=== PATIENT | male | born 1965 | race Caucasian/White ===

== ENCOUNTER 2018-06-05 11:21 | Inpatient (IN) | payer OTHER ==
[~2018-06-05] VITALS: Ht 190.5 cm; Wt 179.8 kg
--- OUTSIDE RECORDS SUMMARY | 2018-06-05 14:16 | XMS REPORT ---
Patient Summary 2.1 Created on: JACKIE CRUZ External Reference #: [id number] : 1965 Sex: Male Author Author YARIEL DELGADO Organization Unknown Address [address] [facility] [address] [place], [place] [id number] Care Team Providers Care Water Pollution Control Inspector Name Role Phone SHARON OLIVARESL Watchlist Xwatchlist BOO WOODRUFF DO HOSPITALIST Attending [facility] [employer] SUZI TAYLOR APRN [facility] Functional Status No Data Found Immunization Immunization Date Status Additional Notes Code Code System MMR 02/09/2001 Completed 03 CVX influenza, unspecified formulation 03/10/2018 Completed 88 CVX influenza, injectable, quadrivalent, preservative free 04/18 Completed 150 CVX Mental Status No Data Found Results BEDSIDE GLUCOSE - Collect Date/Time: 05/18/2018 11:38 [employer] ID: [id number] - [id number] [address] [facility] [address], [place], [place], [id number] [facility] [employer] ID: [id number] [address] [facility] [address], [place], [address] LOINC: 17575-2 Test Value Unit Reference Range Code Code System GLUCOSE POCT 129 MG/DL L=70 H=100 52013-4 LOINC BEDSIDE GLUCOSE - Collect Date/Time: 05/18/2018 07:39 [employer] ID: [id number] - [id number] [address] [facility] [address], [place], [id number] [facility] [employer] ID: [id number] [address] [facility] [address], [place], [place], [address] LOINC: 23163-2 Test Value Unit Reference Range Code Code System GLUCOSE POCT 119 MG/DL L=70 H=100 63277-6 LOINC CBC W/ AUTO DIFF (RFLX MAN DIFF IF IND) - Collect Date/Time: 05/18/2018 06:40 [place] ID: [id number] - [id number] [address], [place], [place], [id number] [facility] ID: [id number] [address], [place], [place], [address] LOINC: 21302-6 Test Value Unit Reference Range Code Code System WBC 15.0 TH/CMM L=4.5 H=10.8 78260-2 LOINC RBC 3.50 ML/CMM L= 4.70 H=6.10 789-8 LOINC HGB 9.5 G/DL L=14.0 H=18.0 718-7 LOINC HCT 30.6 % L=42.0 H=52.0 4544-3 LOINC MCV 87 FL L=81 H =99 MCH 27.1 PG L=27.0 H=33.0 MCHC 31.0 G/DL L=31.0 H=36.0 RDW SD 48 FL L=36 H=50 RDW CV 15.0 % L=0.0 H=14.8 MPV 10.2 FL L=9.3 H=12.5 PLT 118 TH/CMM L=130 H=440 777-3 LOINC NRBC# 0.00 TH/CMM L= 0.00 H=0.00 NRBC% 0.0 /100WBC L= 0.0 H=2.0 %NEUT 85.3 % %LYMP 5.0 % %MONO 7.0 % %EOS 0.5 % %BASO 0.1 % #NEUT 12.74 TH/CMM L= 2.10 H=8.20 #LYMP 0.75 TH/CMM L= 0.90 H=5.20 #MONO 1.04 TH/CMM L= 0.16 H=1.00 #EOS 0.08 TH/CMM L= 0.00 H=0.80 #BASO 0.02 TH/CMM L= 0.00 H=0.20 MANUAL DIFF SEE BELOW SEGS 86 % BANDS 0 % LYMPHS 6 % MONOS 7 % EOS 1 % BASO METAS MYELO PROS BLASTS ATYP LYMPHS RBC MORPH RENAL FUNCTION PANEL - Collect Date/Time: 05/18/2018 06:40 [employer] ID: [id number] [address], [place], [place], [id number] [facility] [employer] ID: [id number] [address] [facility] [address], [place], [place], [address] LOINC: 48466-9 Test Value Unit Reference Range Code Code System GLUCOSE 122 MG/DL L= 70 H=100 2345-7 LOINC SODIUM 128 MEQ/L L= 135 H=148 2951-2 LOINC POTASSIUM 4.2 MEQ/L L= 3.5 H=5.3 2823-3 LOINC CHLORIDE 97 MEQ/L L= 96 H=110 2075-0 LOINC CO2 19 MEQ/L L=22 H=29 2028-9 LOINC BUN 45 MG/DL L=8 H=22 3094-0 LOINC CREATININE 4.3 MG/DL L =0.6 H=1.6 2160-0 LOINC ALBUMIN 3.0 G/DL L= 3.1 H=5.4 1751-7 LOINC CALCIUM 8.5 MG/DL L= 8.2 H=10.6 54464-9 LOINC PHOSPHORUS 3.9 MG/DL L =2.5 H=4.5 2777-1 LOINC AGE 53 yrs GFR NonAA 15 GFR AA 18 eGFR 15 mL/min/1.7 eGFR AA* 18 mL/min/1.7 BEDSIDE GLUCOSE - Collect Date/Time: 05/17/2018 20:13 [employer] ID: [id number] - [id number] [address] [facility] [address], [place], [id number] [facility] [employer] ID: [id number] [address], [place], [place], [id number] LOINC: 51881-5 Test Value Unit Reference Range Code Code System GLUCOSE POCT 83 MG/DL L=70 H=100 25515-7 LOINC BEDSIDE GLUCOSE - Collect Date/Time: 05/17/2018 17:08 [facility] ID: [id number] [address], [place], [place], [address] [facility] ID: [id number] [address], [place], [place], [address] LOINC: 09289-9 Test Value Unit Reference Range Code Code System GLUCOSE POCT 87 MG/DL L=70 H=100 73549-0 LOINC CREATININE UR RANDOM - Collect Date/Time: 05/17/2018 13:27 [facility] ID: [id number] [address], [place], [place], [address] [facility] ID: [id number] [address], [place], [place], [address] LOINC: 2161-8 Test Value Unit Reference Range Code Code System CREAT UR RAND 224.3 MG/DL 2161-8 LOINC SODIUM UR RANDOM - Collect Date/Time: 05/17/2018 13:27 [facility] ID: [id number] [address], [place], [place], [address] [facility] ID: [id number] [address], [place], [place], [address] LOINC: 2955-3 Test Value Unit Reference Range Code Code System NA UR RANDOM 31 MEQ/L 2955-3 LOINC UA ROUTINE C&S IF IND - Collect Date/Time: 05/17/2018 13:27 [facility] ID: [id number] [address] [facility], [place], [place], [address] [facility] ID: [id number] [address] [facility], [place], [place], [address] LOINC: 34209-8 Test Value Unit Reference Range Code Code System COLOR YELLOW NL: YELLOW APPEARANCE CLOUDY NL : CLEAR SPEC GRAV >=1.030 NL : 1.002 - 1.022 pH 5.0 NL: 5 - 9 PROTEIN 30 NL: NEGATIVE mg/dl GLUCOSE 100 NL: NEGATIVE mg/dl KETONE TRACE NL: NEGATIVE mg/dl BILIRUBIN SMALL NL: NEGATIVE BLOOD SMALL NL: NEGATIVE NITRITE POSITIVE NL : NEGATIVE LEUK SCREEN MODERATE NL: NEGATIVE MICRO INDICATED? SEE BELOW WBC/HPF 50-100 NL: NEGATIVE RBC/HPF 4-10 NL: NEGATIVE CASTS/LPF NEGATIVE NL: NEGATIVE CRYSTALS TRACE AMORPH NL: NEGATIVE MUCOUS THRDS NEGATIVE NL: NEGATIVE BACTERIA 2++ NL: NEGATIVE EPITH CELLS 1+ SQUAMOUS NL: NEGATIVE TRICHOMONAS NEGATIVE NL: NEGATIVE YEAST NEGATIVE NL: NEGATIVE CULT SET UP? YES BEDSIDE GLUCOSE - Collect Date/Time: 05/17/2018 12:01 [employer] ID: [id number] [address] [facility] [address], [place], [place], [id number] [facility] ID: [id number] [address] [facility] [address], [place], [place], [address] LOINC: 04993-0 Test Value Unit Reference Range Code Code System GLUCOSE POCT 142 MG/DL L=70 H=100 40610-9 LOINC BEDSIDE GLUCOSE - Collect Date/Time: 05/17/2018 07:32 [place] [employer] ID: [id number] [address] [facility] [address], [place], [place], [address] [facility] ID: [id number] [address] [facility], [place], [place], [address] LOINC: 41383-9 Test Value Unit Reference Range Code Code System GLUCOSE POCT 157 MG/DL L=70 H=100 00471-5 LOINC CBC W/ AUTO DIFF (RFLX MAN DIFF IF IND) - Collect Date/Time: 05/17/2018 06:50 [facility] ID: [id number] [address] [facility] [address], [place], [place], [address] [facility] ID: [id number] [address] [facility] [address], [place], [place], [address] LOINC: 21366-3 Test Value Unit Reference Range Code Code System WBC 18.2 TH/CMM L=4.5 H=10.8 27575-7 LOINC RBC 3.55 ML/CMM L= 4.70 H=6.10 789-8 LOINC HGB 10.0 G/DL L=14.0 H=18.0 718-7 LOINC HCT 31.6 % L=42.0 H=52.0 4544-3 LOINC MCV 89 FL L=81 H =99 MCH 28.2 PG L=27.0 H=33.0 MCHC 31.6 G/DL L=31.0 H=36.0 RDW SD 48 FL L=36 H=50 RDW CV 14.6 % L=0.0 H=14.8 MPV 10.7 FL L=9.3 H=12.5 PLT 128 TH/CMM L=130 H=440 777-3 LOINC NRBC# 0.00 TH/CMM L= 0.00 H=0.00 NRBC% 0.0 /100WBC L= 0.0 H=2.0 %NEUT 86.4 % %LYMP 4.8 % %MONO 7.5 % %EOS 0.2 % %BASO 0.2 % #NEUT 15.73 TH/CMM L= 2.10 H=8.20 #LYMP 0.88 TH/CMM L= 0.90 H=5.20 #MONO 1.37 TH/CMM L= 0.16 H=1.00 #EOS 0.03 TH/CMM L= 0.00 H=0.80 #BASO 0.03 TH/CMM L= 0.00 H=0.20 MANUAL DIFF SEE BELOW SEGS 83 % BANDS 4 % LYMPHS 4 % MONOS 9 % EOS BASO METAS MYELO PROS BLASTS ATYP LYMPHS RBC MORPH HEMOGLOBIN A1C - Collect Date/Time: 05/17/2018 06:50 [employer] ID: [id number] [address] [facility] [address], [place], [place], [address] [facility] [employer] ID: [id number] [address] [facility] [address], [place], [place], [address] LOINC: 36824-6 Test Value Unit Reference Range Code Code System HGB A1C 6.2 % L=4.0 H=6.4 55913-4 LOINC Est Avg Glucose 131.2 mg/dL 57357-9 LOINC RENAL FUNCTION PANEL - Collect Date/Time: 05/17/2018 06:50 [facility] [employer] ID: [id number] [address] [facility] [address], [place], [place], [address] [employer] ID: [id number] [address] [facility] [address], [place], [place], [address] LOINC: 51972-5 Test Value Unit Reference Range Code Code System GLUCOSE 159 MG/DL L= 70 H=100 2345-7 LOINC SODIUM 129 MEQ/L L= 135 H=148 2951-2 LOINC POTASSIUM 4.1 MEQ/L L= 3.5 H=5.3 2823-3 LOINC CHLORIDE 96 MEQ/L L= 96 H=110 2075-0 LOINC CO2 21 MEQ/L L=22 H=29 2028-9 LOINC BUN 34 MG/DL L=8 H=22 3094-0 LOINC CREATININE 2.5 MG/DL L =0.6 H=1.6 2160-0 LOINC ALBUMIN 3.2 G/DL L= 3.1 H=5.4 1751-7 LOINC CALCIUM 8.5 MG/DL L= 8.2 H=10.6 06894-5 LOINC PHOSPHORUS 3.0 MG/DL L =2.5 H=4.5 2777-1 LOINC AGE 53 yrs GFR NonAA 27 GFR AA 33 eGFR 27 mL/min/1.7 eGFR AA* 33 mL/min/1.7 LACTIC ACID - Collect Date/Time: 05/16/2018 23:05 [employer] ID: [id number] [address] [facility] [address], [place], [place], [address] [facility] [employer] ID: [id number] [address] [facility] [address], [place], [place], [address] LOINC: 2524-7 Test Value Unit Reference Range Code Code System LACTIC ACID 1.7 mmol/L L=0.5 H=1.6 2524-7 LOINC BEDSIDE GLUCOSE - Collect Date/Time: 05/16/2018 20:58 [facility] [employer] ID: [id number] [address] [facility], [place], [place], [address] [employer] ID: [id number] [address] [facility], [place], [place], [address] LOINC: 70485-4 Test Value Unit Reference Range Code Code System GLUCOSE POCT 172 MG/DL L=70 H=100 71519-1 LOINC LACTIC ACID - Collect Date/Time: 05/16/2018 17:30 [facility] [employer] ID: [id number] [address], [place], [place], [address] [employer] ID: [id number] [address], [place], [address] LOINC: 2524-7 Test Value Unit Reference Range Code Code System LACTIC ACID 3.6 mmol/L L=0.5 H=1.6 2524-7 LOINC BEDSIDE GLUCOSE - Collect Date/Time: 05/16/2018 17:01 [facility] ID: [id number] [address] [facility] [address], [place], [address] [facility] ID: [id number] [address] [facility] [address] [place], [place], [address] LOINC: 43807-3 Test Value Unit Reference Range Code Code System GLUCOSE POCT 193 MG/DL L=70 H=100 61458-2 LOINC UA ROUTINE C&S IF IND - Collect Date/Time: 05/16/2018 13:55 [place] [facility] ID: [id number] [address] [facility] [address], [place], [id number] [facility] ID: [id number] [address] [facility] [address], [place], [address] LOINC: Test Value Unit Reference Range Code Code System COLOR YELLOW NL: YELLOW APPEARANCE SL CLOUDY NL: CLEAR SPEC GRAV >=1.030 NL : 1.002 - 1.022 pH 5.5 NL: 5 - 9 PROTEIN 100 NL: NEGATIVE mg/dl GLUCOSE 100 NL: NEGATIVE mg/dl KETONE 15 NL: NEGATIVE mg/dl BILIRUBIN SMALL NL: NEGATIVE BLOOD MODERATE NL: NEGATIVE NITRITE NEGATIVE NL : NEGATIVE LEUK SCREEN SMALL NL : NEGATIVE MICRO INDICATED? SEE BELOW WBC/HPF 10-20 NL: NEGATIVE RBC/HPF 4-10 NL: NEGATIVE CASTS/LPF FEW HYALINE NL: NEGATIVE CRYSTALS NEGATIVE NL : NEGATIVE MUCOUS THRDS NEGATIVE NL: NEGATIVE BACTERIA 3+++ NL: NEGATIVE EPITH CELLS FEW SQUAMOUS NL: NEGATIVE TRICHOMONAS NEGATIVE NL: NEGATIVE YEAST NEGATIVE NL: NEGATIVE CULT SET UP? YES CX CHEST 2 VIEW - Completed: 05/16/2018 13:51 LOINC: EXAMINATION:CX CHEST 2 VIEWREASON FOR EXAM:Fever COMPARISON:12/11/2013FINDINGS: The cardiac silhouette is borderline enlarged. Low-grade right basilar pulmonary opacities.No pleural effusion or pneumothorax. IMPRESSION:Right basilar atelectasis versus subtle changes of infection.Reviewed and Electronically Signed by: Elmo Miranda Date/Time: 05/16/2018 2:37 PMJob ID#: [id number] Social History Type Status Start Date End Date Code Code System Smoking History Never smoker (Never Smoked) 883796389 SNOMED-CT Vital Signs Vital Sign Value Unit Dare Value Dare Unit Date/Time Recent/Initial? Code Code System Body Mass Index 57.45 kg/m2 05/18/2018 05:14 Most Recent 16623-7 [facility] Body Mass Index 65.73 kg/m2 05/16/2018 16:15 [facility] 93654-0 [facility] Systolic Blood Pressure 127 mm[Hg] 05/18/2018 11:25 Most Recent 8480-6 [facility] Diastolic Blood Pressure 68 mm[Hg] 05/18/2018 11:25 Most Recent 8462-4 [facility] Systolic Blood Pressure 146 mm[Hg] 05/16/2018 16:15 [facility] 8480-6 [facility] Diastolic Blood Pressure 69 mm[Hg] 05/16/2018 16:15 [facility] 8462-4 [facility] Body Surface Area 3.39 m2 05/18/2018 05:14 Most Recent 3140-1 [facility] Body Surface Area 3.62 m2 05/16/2018 16:15 [facility] 3140-1 [facility] Height 193.0400 cm 76.00 in 05/18/2018 05:14 Most Recent 8302-2 [facility] Height 193.0400 cm 76.00 in 05/16/2018 16:15 [facility] 8302-2 INC O2 Saturation 96 % 05/18/2018 11:25 Most Recent 11838-3 [facility] O2 Saturation 96 % 05/16/2018 16:15 [facility] 34920-5 [facility] Pulse 96.0 /min 05/18/2018 11:25 Most Recent 8867-4 [facility] Pulse 118.0 /min 05/16/2018 16:15 [facility] 8867-4 [facility] Respiration 20 /min 05/18/2018 11:25 Most Recent 9279-1 [facility] Respiration 20 /min 05/16/2018 16:15 [facility] 9279-1 [facility] Temperature 37.1 Indira 98.8 F 05/18/2018 11:25 Most Recent 8310-5 [facility] Temperature 37.9 Indira 100.2 F 05/16/2018 16:15 Inital 8310-5 [facility] Weight 214.0956 kg 472.00 lbs 05/18/2018 05:14 Most Recent 33945-8 [facility] Weight 244.9399 kg 540.00 lbs 05/16/2018 16:15 In[facility] 24060-3 [facility] Medications Medication Start Date End Date Route Frequency Dose Code Code System VANCOMYCIN [PREDEFINED] IV: 501-1200MG 05/16/2018 05/16/2018 IV PIGGY X1 9302934 RxNorm ~~~VANCOMYCIN: 1 GM VIAL 1000 MG RxNorm ~~~NACL 0.9% 250ML IV BAG (7983-02) 250 ML RxNorm ~~~REFRIGERATE 1 EA RxNorm FLUVIRIN (INFLUENZA) VACCINE 0.5ML/DOSE 05/16/2018 05/16/2018 IM OPTIONS X1 0.5 ML 1550722 RxNorm PNEUMOCOCCAL VACCINE (SINGLE DOSE) 05/16/2018 Unknown IM OPTIONS PRN 0.5 ML 8006065 RxNorm PERCOCET 10/325MG TABLET 05/16/2018 Unknown BY MOUTH PRN 1 unit(s) 6066625 RxNorm ROCEPHIN IV [PREDEFINED]: 1GM IV Q 24HR 05/16/2018 05/23/2018 IV PIGGY Q24H 100 ml/hr 8676482 RxNorm ~~~cefTRIAXone [ROCEPHIN] 1 GM ADV VIAL 1 GM RxNorm ~~~NACL 0.9% ADD-VANTAGE: 50 ML BAG 50 ML RxNorm ACETAMINOPHEN ES [TYLENOL] TAB : 500 MG 05/16/2018 Unknown BY MOUTH PRN 500 MG 555259 RxNorm TALITA-COLACE (NEW FORMULATION) TABLET 05/16/2018 Unknown BY MOUTH BID 2 unit(s) 764875 RxNorm MUPIROCIN (BACTROBAN) 2% OINTMENT: 22 GM 05/16/2018 05/23/2018 TOPICAL PRN 1 unit(s) 749310 RxNorm NF-Toujeo Subcutaneous Solution 300U/1ML 05/16/2018 Unknown SUBCUTANEOUS HS 30 U 0347477 RxNorm INSULIN [NOVOLOG] 100UNITS/ML (SQ) 10ML 05/17/2018 Unknown SUBCUTANEOUS OPTIONS TID 50 UNIT(S) 759241 RxNorm NS 1000 ML IV [PREDEFINED] (7983) 05/17/2018 Unknown INTRAVENOUS CONT IV 200 ml/hr 7498628 RxNorm ~~~NACL 0.9% (7983) 1000ML IV BAG 1000 ML RxNorm HEPARIN: 5000 UNITS/1ML VIAL 05/17/2018 Unknown SUBCUTANEOUS OPTIONS Q8H 5000 UNITS 3247512 RxNorm ONDANSETRON [ZOFRAN] INJ 4 MG/2 ML VIAL 05/17/2018 Unknown SLOW IV PUSH PRN Q 6 HRS 4 MG 7948020 RxNorm VANCOMYCIN [PREDEFINED] IV : > 2000 MG 05/17/2018 05/24/2018 IV PIGGY Q24H 250 ml/hr RxNorm ~~~VANCOMYCIN: 1 GM VIAL 2500 MG RxNorm ~~~NACL 0.9% 500 ML IV BAG (7983-03) 500 ML RxNorm ~~~REFRIGERATE 1 EA RxNorm Assessment You had the following problems: CELLULITIS SEPSIS DIABETES 2 Hospital Discharge Instructions Should you have any questions prior to discharge, please contact a member of your healthcare team. If you have left the hospital and have any questions, please contact your primary care physician. Reason For Referral No Data Found Procedures Procedure Name Date Status Code Code System Cholecystectomy completed 86374688 SNOMED CT REPAIR OF CIRCUMCISION completed 138930252 SNOMED CT Implants No Data Found Problems Problem Start Date Resolved Date Status Code Code System CELLULITIS active 680562930 SNOMED-CT SEPSIS active 34894208 SNOMED-CT DIABETES 2 active 18779091 SNOMED-CT HTN 05/16/2018 resolved 32217259 SNOMED-CT Allergies Allergy Substance Reaction Severity Start Date Concern Status Code Code System No Known Drug Allergies Active RxNorm Plan of Treatment CULTURE URINE 05/17/2018 LOINC: 630-4 VANCOMYCIN TROUGH 05/19/2018 LOINC: 4092- 3 Encounters No Data Found Goals No Data Found Health Concerns Section No Data Found
--- OUTSIDE RECORDS SUMMARY | 2018-06-05 14:17 | XMS REPORT | CCD ---
Author Author KILEY ALVARES Unknown Address [address] [facility] [address] [place], [place] [address] Care Team Providers Care Taffy Puller Name Role Phone HOMERO HERNÁNDEZ, TARAS Tovarphys Vital Signs Vital Sign Value Unit Date/Time Recent/Initial? BP Systolic 125 mmHg 01/22/2016 15:30 Initial VS BP Diastolic 76 mmHg 01/22/2016 15:30 Initial VS Respiratory Rate 18 bpm 01/22/2016 15:30 Initial VS Heart Rate 88 bpm 01/22/2016 15:30 Initial VS O2 % BldC Oximetry 98 % 01/22/2016 15:30 Initial VS Body Temperature 97.3 degrees 01/22/2016 15:30 Initial VS Allergies Allergy Code Allergy Type Reaction Status No Known Drug Allergies 0 No known drug allergies Active Procedures Unknown or Not Available. History of Immunizations Immunization Code Date 02/09/2001 Problems Unknown or Not Available. Results Unknown or Not Available. Active Medications Unknown or Not Available. Medications Administered During Visit Unknown or Not Available. Encounters Encounter Diagnosis Diagnosis Code Start Date Patient's noncompliance with other medical treatment and regimen Z9119 01/22/2016 Social History Smoking Status Code Start Date End Date Never smoker 300680577 Patient Decision Aids Unknown or Not Available. Discharge Instructions You were admitted to [facility] on 01/22/2016 14:50 with a principal diagnosis of ~Patient's noncompliance with other medical treatment and regimen/ see#1594 You were discharged from [facility] on 01/22/2016 14:50 Should you have any questions prior to discharge, please contact a member of your healthcare team. If you have left the hospital and have any questions, please contact your primary care physician. Chief Complaint and Reason For Visit Chief Complaint Date of Onset FITTING FOR BOOT Function Status Unknown or Not Available. Plan of Care Unknown or Not Available. Referral/Transition of Care Unknown or Not Available.
--- OUTSIDE RECORDS SUMMARY | 2018-06-05 14:17 | XMS REPORT | CCD ---
Author Author KILEY ALVARES Unknown Address [address] [facility] [address] [place], [place] [phone] Care Team Providers Care Punch Operator Name Role Phone CARLOS GILL APRN Attphys Vital Signs Unknown or Not Available. Allergies Allergy Code Allergy Type Reaction Status No Known Drug Allergies 0 No known drug allergies Active Procedures Procedure Code Procedure Type Date FOOT [address] 01/18/2016 CBC W/ AUTO DIFF (RFLX MAN DIFF IF IND) 2253864 SNOMED CT 01/18/2016 ^CBC W/AUTO DIFF 4436340 SNOMED CT 01/18/2016 BLOOD COLLECTION 94268264 SNOMED CT 01/18/2016 History of Immunizations Immunization Code Date 02/09/2001 Problems Unknown or Not Available. Results CBC W/ AUTO DIFF (RFLX MAN DIFF IF IND) - Collect Date/Time: 01/18/2016 18:05 Test Name Code Test Result Test Units Test Ref Range WBC 29953-0 12.4 TH/CMM L=4.5 H=10.8 RBC 789-8 5.12 ML/CMM L=4.70 H=6.10 HGB 718-7 13.9 G/DL L=14.0 H=18.0 HCT 4544-3 42.7 % L=42.0 H=52.0 MCV 83 FL L=81 H=99 MCH 27.1 PG L=27.0 H=33.0 MCHC 32.6 G/DL L=31.0 H=36.0 RDW SD 41 FL L=36 H=50 RDW CV 13.4 % L=0.0 H=14.8 MPV 10.1 FL L=9.3 H=12.5 PLT 777-3 198 TH/CMM L=130 H=440 NRBC# 0.00 TH/CMM L=0.00 H=0.00 NRBC% 0.0 /100WBC L=0.0 H=2.0 %NEUT 74.2 % %LYMP 15.7 % %MONO 7.3 % %EOS 1.7 % %BASO 0.4 % #NEUT 9.16 TH/CMM L=2.10 H=8.20 #LYMP 1.94 TH/CMM L=0.90 H=5.20 #MONO 0.90 TH/CMM L=0.16 H=1.00 #EOS 0.21 TH/CMM L=0.00 H=0.80 #BASO 0.05 TH/CMM L=0.00 H=0.20 MANUAL DIFF NOT IND N/A Active Medications Unknown or Not Available. Medications Administered During Visit Unknown or Not Available. Encounters Encounter Diagnosis Diagnosis Code Start Date Type 2 diabetes mellitus with foot ulcer [id number] 01/18/2016 Social History Smoking Status Code Start Date End Date Never smoker [id number] Patient Decision Aids Unknown or Not Available. Discharge Instructions You were admitted to [facility] on 01/18/2016 17:57 with a principal diagnosis of Type 2 diabetes mellitus with foot ulcer You had the following tests done: CBC W/ AUTO DIFF (RFLX MAN DIFF IF IND) You were discharged from [facility] on 01/18/2016 17:57 Should you have any questions prior to discharge, please contact a member of your healthcare team. If you have left the hospital and have any questions, please contact your primary care physician. Chief Complaint and Reason For Visit Unknown or Not Available. Function Status Unknown or Not Available. Plan of Care Unknown or Not Available. Referral/Transition of Care Unknown or Not Available.
--- OUTSIDE RECORDS SUMMARY | 2018-06-05 14:17 | XMS REPORT | CCD ---
Author Author SARAHI AU Organization Unknown Address [address] [facility] [address] [place], [place] [id number] Care Team Providers Care Clinical Dental Technician Name Role Phone HAILY HERNÁNDEZ, TARAS Calvillo Attphybrett TARAS JOHANSEN MD Vital Signs Unknown or Not Available. Allergies Allergy Code Allergy Type Reaction Status No Known Drug Allergies 0 No known drug allergies Active Procedures Procedure Code Procedure Type Date LACTIC ACID 6516141 SNOMED CT 01/15/2016 CULTURE BLOOD 84653762 SNOMED CT 01/15/2016 SED RATE 488532283 SNOMED CT 01/15/2016 C REACTIVE PROTEIN 76422261 SNOMED CT 01/15/2016 COMPREHENSIVE METABOLIC PANEL 724036308 SNOMED CT 2015 CBC W/ AUTO DIFF (RFLX MAN DIFF IF IND) 3964722 SNOMED CT 01/15/2016 ^CBC W/ MANUAL DIFF 16972570 SNOMED CT 01/15/2016 History of Immunizations Immunization Code Date MMR 03 02/09/2001 Problems Unknown or Not Available. Results COMPREHENSIVE METABOLIC PANEL - Collect Date/Time: 01/15/2016 10:25 Test Name Code Test Result Test Units Test Ref Range GLUCOSE 2345-7 214 MG/DL L=70 H=100 SODIUM 2951-2 131 MEQ/L L=135 H=148 POTASSIUM 2823-3 3.8 MEQ/L L=3.5 H=5.3 CHLORIDE 2075-0 98 MEQ/L L=96 H=110 CO2 2028-9 22 MEQ/L L=22 H=29 BUN 3094-0 12 MG/DL L=8 H=22 CREATININE 2160-0 0.8 MG/DL L=0.6 H=1.6 SGOT/AST 1920-8 11 IU/L L=10 H=40 SGPT/ALT 1742-6 22 IU/L L=8 H=54 ALK PHOS 6768-6 65 IU/L L=35 H=115 TOTAL PROTEIN 2885-2 7.0 G/DL L=5.5 H=8.5 ALBUMIN 1751-7 3.7 G/DL L=3.1 H=5.4 TOTAL BILI 1975-2 0.8 MG/DL L=0.0 H=1.5 CALCIUM 23641-6 9.1 MG/DL L=8.2 H=10.6 AGE 50 yrs GFR NonAA 102 GFR AA 124 eGFR >60 N/A eGFR AA* >60 N/A CBC W/ AUTO DIFF (RFLX MAN DIFF IF IND) - Collect Date/Time: 01/15/2016 10:25 Test Name Code Test Result Test Units Test Ref Range WBC 07381-1 18.0 TH/CMM L=4.5 H=10.8 RBC 789-8 4.84 ML/CMM L=4.70 H=6.10 HGB 718-7 13.1 G/DL L=14.0 H=18.0 HCT 4544-3 40.3 % L=42.0 H=52.0 MCV 83 FL L=81 H=99 MCH 27.1 PG L=27.0 H=33.0 MCHC 32.5 G/DL L=31.0 H=36.0 RDW SD 40 FL L=36 H=50 RDW CV 13.3 % L=0.0 H=14.8 MPV 10.0 FL L=9.3 H=12.5 PLT 777-3 152 TH/CMM L=130 H=440 NRBC# 0.00 TH/CMM L=0.00 H=0.00 NRBC% 0.0 /100WBC L=0.0 H=2.0 %NEUT 84.3 % %LYMP 6.9 % %MONO 7.7 % %EOS 0.3 % %BASO 0.2 % #NEUT 15.16 TH/CMM L=2.10 H=8.20 #LYMP 1.24 TH/CMM L=0.90 H=5.20 #MONO 1.39 TH/CMM L=0.16 H=1.00 #EOS 0.06 TH/CMM L=0.00 H=0.80 #BASO 0.03 TH/CMM L=0.00 H=0.20 SEGS 77 % BANDS 4 % LYMPHS 8 % MONOS 9 % EOS 2 % MANUAL DIFF SEE BELOW N/A SED RATE - Collect Date/Time: 01/15/2016 10:25 Test Name Code Test Result Test Units Test Ref Range SEDRATE 4537-7 44 MM/HR L=0 H=15 C REACTIVE PROTEIN - Collect Date/Time: 01/15/2016 10:25 Test Name Code Test Result Test Units Test Ref Range C REACTIVE PROTEIN 1988-5 14.8 MG/DL L=0.0 H= 1.0 LACTIC ACID - Collect Date/Time: 01/15/2016 10:25 Test Name Code Test Result Test Units Test Ref Range LACTIC ACID 2524-7 1.9 mmol/L L=0.5 H=1.6 Active Medications Unknown or Not Available. Medications Administered During Visit Unknown or Not Available. Encounters Encounter Diagnosis Diagnosis Code Start Date Cellulitis of lower limb 073929249 01/15/2016 Social History Smoking Status Code Start Date End Date Never smoker [id number] Patient Decision Aids Unknown or Not Available. Discharge Instructions You were admitted to [facility] on 01/15/2016 09:05 with a principal diagnosis of Cellulitis of left lower limb You had the following tests done: C REACTIVE PROTEIN CBC W/ AUTO DIFF (RFLX MAN DIFF IF IND) COMPREHENSIVE METABOLIC PANEL LACTIC ACID SED RATE You were discharged from [facility] on 01/15/2016 12:31 Should you have any questions prior to discharge, please contact a member of your healthcare team. If you have left the hospital and have any questions, please contact your primary care physician. Chief Complaint and Reason For Visit Chief Complaint Date of Onset FEVER FOOT PAIN Function Status Unknown or Not Available. Plan of Care Unknown or Not Available. Referral/Transition of Care Unknown or Not Available.
--- OUTSIDE RECORDS SUMMARY | 2018-06-05 14:17 | XMS REPORT | CCD ---
Author Author KILEY ALVARES Unknown Address [address] [facility] [address] [place], [place] [id number] Care Team Providers Care Building Supervisor Name Role Phone HOMERO HERNÁNDEZ, TARAS Shin Vital Signs Vital Sign Value Unit Date/Time Recent/Initial? Weight Measured 381 lbs 01/21/2016 14:53 Initial VS Height 76 in 01/21/2016 14:53 Initial VS BMI (Body Mass Index) 46.38 kg/m^2 01/21/2016 14:53 Initial VS BSA (Body Surface Area) 3.04 m^2 01/21/2016 14:53 Initial VS Allergies Allergy Code Allergy Type Reaction Status No Known Drug Allergies 0 No known drug allergies Active Procedures Procedure Code Procedure Type Date Incision & drainage abscess complicated/multiple 86480 CPT 01/22/2016 ^SENSITIVITY 241030672 SNOMED CT 01/22/2016 ^CULTURE AEROBIC ID [id number] SNOMED CT 01/22/2016 BEDSIDE GLUCOSE 89315327 SNOMED CT 01/22/2016 CULTURE MISC 350175781 SNOMED CT 01/22/2016 CULTURE MISC 411439978 SNOMED CT 01/22/2016 History of Immunizations Immunization Code Date 02/09/2001 Problems Unknown or Not Available. Results BEDSIDE GLUCOSE - Collect Date/Time: 01/22/2016 11:14 Test Name Code Test Result Test Units Test Ref Range GLUCOSE POCT 95 MG/DL L=70 H=100 Active Medications Medications Administered During Visit Unknown or Not Available. Encounters Encounter Diagnosis Diagnosis Code Start Date Cutaneous abscess of left foot F65350 01/22/2016 Social History Smoking Status Code Start Date End Date Never smoker [id number] Patient Decision Aids Patient Decision Aid INCISION & DRAINAGE OF A WOUND; AFTER THE PROCEDURE Discharge Instructions You were admitted to [facility] on 01/22/2016 10:13 with a principal diagnosis of Cutaneous abscess of left foot You had the following procedures done: Incision & drainage abscess complicated/multiple You had the following tests done: BEDSIDE GLUCOSE You were discharged from [facility] on 01/22/2016 15:17 Should you have any questions prior to discharge, please contact a member of your healthcare team. If you have left the hospital and have any questions, please contact your primary care physician. Chief Complaint and Reason For Visit Chief Complaint Date of Onset I AND D Function Status Unknown or Not Available. Plan of Care Unknown or Not Available. Referral/Transition of Care Unknown or Not Available.
--- OUTSIDE RECORDS SUMMARY | 2018-06-05 14:18 | XMS REPORT ---
Author Author Simon Wills [facility] Address [address] [address] [place], [place] [id number] Care Team Providers Care Microbiology Lab Assistant Name Role Phone Simon Wills PCP Unavailable Todd Topete PreferredProvider Unavailable Allergies and Adverse Reactions Name Reaction Notes NO KNOWN DRUG ALLERGIES Plan of Treatment Planned Activity Comments Planned Date Planned Time Plan/Goal EKG (12-lead electrocardiogram) 04/28/2015 12:00 AM CBC With Auto Differential 02/16/2016 12:00 AM CMP 02/16/2016 12:00 AM Hemoglobin A1C 02/16/2016 12:00 AM CULTURE MISC 05/18/2016 12:00 AM Lipid Profile 12/22/2011 12:00 AM CMP 02/07/2014 12:00 AM Urine culture and sensitivity 06/10/2014 12:00 AM Medications Active Name Start Date Estimated Completion Date SIG Comments aspirin 81 mg oral tablet Farxiga 10 mg oral tablet 10/24/2013 take 1 tablet (10 mg) by oral route once daily in the morning Lantus Solostar 100 unit/mL (3 mL) subcutaneous insulin pen 06/19/2014 INJECT UP TO 70 UNITS EVERY DAY DIRECTED ICD-9 250.01 Novolog 100 unit/mL subcutaneous solution 04/15/2015 INJECT 50 UNITS BY SUBCUTANEOUS ROUTE BEFORE MEALS DIRECTED Novolog 100 unit/mL subcutaneous solution 08/10/2015 INJECT 50 UNITS BY SUBCUTANEOUS ROUTE BEFORE MEALS DIRECTED Toujeo SoloStar 300 unit/mL (1.5 mL) subcutaneous insulin pen 08/17/2015 75 units daily Novolog 100 unit/mL subcutaneous solution INJECT 50 UNITS BY SUBCUTANEOUS ROUTE BEFORE MEALS DIRECTED lisinopril 5 mg oral tablet 02/16/2016 02/10/2017 take 1 tablet (5 mg) by oral route once daily for 30 days Percocet 10-325 mg oral tablet 02/16/2016 take 1 tablet by oral route every 6 hours as needed Augmentin 875-125 mg oral tablet 05/18/2016 05/25/2016 take 1 tablet by oral route every 12 hours for 7 days Name Start Date Expiration Date SIG Comments Tricor 145 mg oral tablet take 1 tablet (145 mg) by oral route once daily Protonix 40 mg oral tablet,delayed release (DR/EC) take 1 tablet (40 mg ) by oral route once daily Ativan 0.5 mg oral tablet take 1/2 tablet by oral route Q4H PRN Amrix 15 mg oral capsule,extended release 24hr 08/28/2009 take 1 capsule ( 15 mg) by oral route once daily Cialis 5 mg oral tablet 11/05/2010 11/05/2010 take 1 tablet (5 mg) by oral route once daily Augmentin 875-125 mg oral tablet 12/14/2010 12/24/2010 take 1 tablet by oral route every 12 hours for 10 days Bactrim DS 800-160 mg oral tablet 08/09/2011 08/16/2011 take 1 tablet by oral route 3 times a day for 7 days Unifine Pentips 31 gauge x 07/13" miscellaneous needle 06/21/2012 07/21/2012 DIRECTED Cipro 500 mg oral tablet 07/30/2012 08/06/2012 take 1 tablet (500 mg) by oral route every 12 hours for 7 days Apidra 100 unit/mL subcutaneous solution 12/31/2012 01/30/2013 INJECT 40 UNITS BEFORE MEALS DIRECTED Lantus Solostar 100 unit/mL (3 mL) subcutaneous insulin pen 03/18/20132012 INJECT UPTO 70 UNITS EVERY DAY DIRECTED amoxicillin 500 mg oral capsule 08/28/2013 09/04/2013 take 1 capsule (500 mg) by oral route every 8 hours for 7 days Cheratussin AC 10-100 mg/5 mL oral liquid 08/28/2013 take 10 milliliters by oral route every 4 hours as needed Levaquin 500 mg oral tablet 08/30/2013 09/06/2013 take 1 tablet (500 mg) by oral route once daily for 7 days Abilify 5 mg oral tablet 02/07/2014 03/09/2014 take 1 tablet (5 mg) by oral route once daily for 30 days Patient did not like the way he felt on this medication Celexa 20 mg oral tablet 03/06/2014 10/02/2014 take 1 tablet (20 mg) by oral route once daily for 30 days Stopped taking Diflucan 150 mg oral tablet 05/01/2014 take 1 tablet (150 mg) by oral route x1 repeat x1 next week. Novolog 100 unit/mL subcutaneous solution 08/04/2014 09/03/2014 inject 1 milliliter by subcutaneous route 3 times a day for 30 days as directed Zithromax Z-Сергей 250 mg oral tablet 10/23/2014 10/28/2014 take 2 tablets (500 mg) by oral route once daily for 1 day then 1 tablet (250 mg) by oral route once daily for 4 days Levaquin 750 mg oral tablet 11/24/2014 12/01/2014 take 1 tablet (750 mg) by oral route once daily for 7 days prednisone 20 mg oral tablet 11/27/2014 12/01/2014 Take 2 tabs x 2 days; then 1 tab x 2 days Zyrtec-D 5-120 mg oral tablet extended release 12 hr 12/05/2014 take 1 tablet by oral route every 12 hours Bystolic 5 mg oral tablet 05/04/2015 06/01/2015 take 1 tablet (5 mg) by oral route once daily for 28 days Trintellix 10 mg oral tablet 02/16/2016 03/01/2016 take 1 tablet (10 mg) by oral route once daily at the same time each day for 14 days Discontinued Name Start Date Discontinued Date SIG Comments Cymbalta 30 mg oral capsule,delayed release(DR/EC) 07/06/2009 04/13/2010 take 2 capsules (60 mg) by oral route once daily Byetta 5 mcg/dose (250 mcg/mL) 1.2 mL subcutaneous pen injector 07/06/200908/18/2009 inject 0.02 milliliter (5 mcg) by subcutaneous route 2 times per day before morning and evening meals Lotrisone 1-0.05 % topical cream 12/14/2009 07/17/2013 apply to the affected and surrounding areas of skin by topical route 2 times per day morning and evening Pristiq 50 mg oral tablet extended release 24 hr 06/28/2010 07/17/2013 take 1 tablet (50 mg) by oral route once daily Apidra SoloStar 100 unit/mL subcutaneous insulin pen 04/24/2014 08/04/2014 50 units qac Farxiga 10 mg oral tablet 08/19/2014 02/16/2015 TAKE 1 TABLET BY MOUTH ONCE DAILY Farxiga 10 mg oral tablet 08/19/2014 02/16/2015 TAKE 1 TABLET BY MOUTH ONCE DAILY Wasn't able to keep taking due to urgency issues during working hours gabapentin 300 mg oral capsule 02/16/2015 04/20/2015 take 1 capsule by oral route 2 times a day Problem List Description Status Onset Diabetes Mellitus, Type II Active Hypertension Active Hematuria Active 06/10/2014 Urinary Tract Infection Active 06/10/2014 Microscopic hematuria Active 06/10/2014 Vital Signs Date Time BP-Sys(mm[Hg] BP-Alana(mm[Hg]) HR(bpm) RR(rpm) Temp WT HT HC BMI BSA BMI Percentile O2 Sat(%) 02/16/2016 1:23:00 PM 152 mmHg 92 mmHg 84 bpm 19 rpm 97.6 F 381.6 lbs 76 in 46.45 kg/m2 3.05 m2 96 % 01/15/2016 9:14:00 AM 157 mmHg 67 mmHg 106 bpm 18 rpm 101.3 F 385 lbs 96 % 08/17/2015 3:50:00 PM 134 mmHg 86 mmHg 89 bpm 20 rpm 99 F 402 lbs 76 in 48.9325 kg/m 3.13 m2 95 % 05/04/2015 3:34:00 PM 154 mmHg 76 mmHg 94 bpm 18 rpm 98.5 F 395 lbs 76 in 48.08 kg/m2 3.0996 m 04/20/2015 3:13:00 PM 140 mmHg 86 mmHg 99 bpm 18 rpm 98.6 F 396.5 lbs 76 in 48.263 kg/m 3.11 m2 94 % 02/16/2015 3:42:00 PM 158 mmHg 80 mmHg 98 bpm 20 rpm 99 F 401.375 lbs 76 in 48.86 kg/m2 3.1245 m 96 % 11/24/2014 1:20:00 PM 135 mmHg 80 mmHg 102 bpm 22 rpm 99.3 F 404.25 lbs 76 in 49.2063 kg/m 3.1357 m 94 % 06/10/2014 9:14:00 AM 398 lbs 76 in 48.45 kg/m2 3.11 m2 05/13/2014 1:34:00 PM 144 mmHg 70 mmHg 88 bpm 22 rpm 97.5 F 396 lbs 76 in 48.2021 kg/m 3.1035 m 04/24/2014 2:35:00 PM 132 mmHg 74 mmHg 88 bpm 18 rpm 97.2 F 389 lbs 76 in 47.35 kg/m2 3.08 m2 02/07/2014 10:33:00 AM 155 mmHg 85 mmHg 88 bpm 95 F 391 lbs 75 in 48.8711 kg/m 3.0635 m 94 % 10/24/2013 2:58:00 PM 114 mmHg 60 mmHg 88 bpm 20 rpm 97.4 F 395 lbs 76 in 48.08 kg/m2 3.10 m2 10/11/2013 2:36:00 PM 150 mmHg 80 mmHg 98 bpm 18 rpm 97.4 F 289 lbs 96 % 08/28/2013 6:20:00 PM 166 mmHg 82 mmHg 92 bpm 18 rpm 97.3 F 391.125 lbs 76 in 47.61 kg/m2 3.08 m2 96 % 07/17/2013 10:49:00 AM 152 mmHg 82 mmHg 103 bpm 20 rpm 98.3 F 382 lbs 76 in 46.498 kg/m 3.0482 m 96 % 02/07/2013 3:49:00 PM 148 mmHg 80 mmHg 91 bpm 18 rpm 98.3 F 382.25 lbs 76 in 46.53 kg/m2 3.05 m2 96 % 10/23/2012 3:16:00 PM 140 mmHg 88 mmHg 80 bpm 20 rpm 97.4 F 382 lbs 76 in 46.498 kg/m 3.0482 m 12/22/2011 3:28:00 PM 132 mmHg 70 mmHg 78 bpm 20 rpm 96.4 F 379 lbs 76 in 46.13 kg/m2 3.04 m2 11/21/2011 3:04:00 PM 150 mmHg 74 mmHg 78 bpm 20 rpm 97.8 F 387 lbs 76 in 47.1066 kg/m 3.068 m 07/14/2011 10:57:00 AM 124 mmHg 82 mmHg 64 bpm 20 rpm 97.6 F 365 lbs 76 in 44.43 kg/m2 2.98 m2 12/16/2010 1:43:00 PM 144 mmHg 82 mmHg 88 bpm 20 rpm 97.1 F 364 lbs 06/24/2010 3:51:00 PM 140 mmHg 88 mmHg 84 bpm 20 rpm 97.6 F 375 lbs 04/13/2010 3:33:00 PM 146 mmHg 82 mmHg 80 bpm 20 rpm 97.4 F 366 lbs 03/30/2010 2:26:00 PM 132 mmHg 76 mmHg 80 bpm 20 rpm 97.6 F 367 lbs 03/02/2010 7:59:00 AM 140 mmHg 82 mmHg 100 bpm 24 rpm 99 F 367 lbs 93 % 12/14/2009 3:03:00 PM 144 mmHg 76 mmHg 88 bpm 22 rpm 97.5 F 362 lbs 10/05/2009 1:25:00 PM 148 mmHg 80 mmHg 88 bpm 20 rpm 97.5 F 356 lbs 08/27/2009 3:33:00 PM 124 mmHg 70 mmHg 74 bpm 98.2 F 357 lbs 08/17/2009 3:43:00 PM 145 mmHg 90 mmHg 100 bpm 22 rpm 96.4 F 358.375 lbs 76 in 43.6223 kg/m 2.9524 m 07/06/2009 8:54:00 AM 118 mmHg 74 mmHg 78 bpm 16 rpm 97.6 F 357 lbs Social History Name Description Comments Alcohol Use social Walking Tobacco Never smoker History of Procedures Date Ordered Description Order Status 04/20/2015 12:00 AM COMPLETE CBC W/AUTO DIFF WBC Reviewed 04/20/2015 12:00 AM COMPREHEN METABOLIC PANEL Reviewed 04/20/2015 12:00 AM GLYCOSYLATED HEMOGLOBIN TEST Reviewed 08/17/2009 12:00 AM GLYCOSYLATED HEMOGLOBIN TEST Reviewed 12/22/2011 12:00 AM COMPLETE CBC W/AUTO DIFF WBC Reviewed 12/22/2011 12:00 AM GLYCOSYLATED HEMOGLOBIN TEST Reviewed 12/22/2011 12:00 AM COMPREHEN METABOLIC PANEL Reviewed 02/07/2013 12:00 AM COMPLETE CBC W/AUTO DIFF WBC Reviewed 02/07/2013 12:00 AM COMPREHEN METABOLIC PANEL Reviewed 02/07/2013 12:00 AM GLYCOSYLATED HEMOGLOBIN TEST Reviewed 02/07/2013 12:00 AM RHEUMATOID FACTOR TEST QUAL Reviewed 07/17/2013 12:00 AM Wound Care Consult Reviewed 07/17/2013 12:00 AM Rocephin 1 gram [facility]#1342-2143-57 Reviewed 08/28/2013 12:00 AM THER/PROPH/DIAG INJ SC/IM Reviewed 08/28/2013 12:00 AM Decadron, Per 1 Mg [facility]# [address]-22 Reviewed 08/28/2013 12:00 AM Depo-Medrol, Per 80 Mg [facility]#9792-3217-67 Reviewed 10/11/2013 12:00 AM ELECTROCARDIOGRAM COMPLETE Reviewed 10/11/2013 12:00 AM ECG MONIT/REPRT UP TO 48 HRS Returned 10/11/2013 12:00 AM COMPLETE CBC W/AUTO DIFF WBC Returned 10/11/2013 12:00 AM COMPREHEN METABOLIC PANEL Returned 10/11/2013 12:00 AM ASSAY OF TROPONIN QUANT Returned 10/18/2013 12:00 AM GLYCOSYLATED HEMOGLOBIN TEST Returned 03/02/2010 12:00 AM COMPLETE CBC W/AUTO DIFF WBC Reviewed 03/02/2010 12:00 AM COMPREHEN METABOLIC PANEL Reviewed 03/02/2010 12:00 AM LIPID PANEL Reviewed 03/02/2010 12:00 AM GLYCOSYLATED HEMOGLOBIN TEST Reviewed 03/02/2010 12:00 AM C-REACTIVE PROTEIN HS Reviewed 03/02/2010 12:00 AM C-REACTIVE PROTEIN Reviewed 02/07/2014 12:00 AM COMPLETE CBC W/AUTO DIFF WBC Reviewed 02/07/2014 12:00 AM GLYCOSYLATED HEMOGLOBIN TEST Reviewed 04/24/2014 12:00 AM Rocephin 1 gram [facility]#3429-6604-78 Reviewed 04/24/2014 12:00 AM URINALYSIS Reviewed 05/13/2014 12:[address] ABDOMEN W/O DYE Reviewed 06/10/2014 10:59 AM URINALYSIS AUTO W/SCOPE Reviewed 06/10/2014 10:59 AM URINALYSIS AUTO W/O SCOPE Reviewed 06/10/2014 10:59 AM URINALYSIS NONAUTO W/SCOPE Reviewed 06/10/2014 10:59 AM URINALYSIS AUTO W/O SCOPE Reviewed 06/10/2014 10:59 AM TEST FOR ACETONE/KETONES Reviewed 06/10/2014 10:59 AM URINALYSIS AUTO W/O SCOPE Reviewed Results Summary Data and Description Results 03/02/2010 8:39 AM C REACTIVE PROTEIN 89.0 mg/LTRIGLYCERIDES 380.0 mg/ dLCHOLESTEROL 212.0 mg/dLHDL 33.0 mg/dLTOT CHOL/HDL 6.4 LDL (CALC) 103.0 mg/ dLGLYCOHEMOGLOBIN A1C 10.20 %GLUCOSE 249.0 mg/dLSODIUM 132.0 mmol/LPOTASSIUM 3.90 mmol/LCHLORIDE 98.0 mmol/LCO2 22.0 mmol/LBUN 10.0 mg/dLCREATININE 0.80 mg/ dLSGOT/AST 53.0 IU/LSGPT/ALT 70.0 IU/LALK PHOS 62.0 IU/LTOTAL PROTEIN 7.20 g/ dLALBUMIN 3.90 g/dLTOTAL BILI 1.0 mg/dLCALCIUM 8.90 mg/dLAGE 44 GFR NonAA 105 GFR AA 127 eGFR >60 mL/min/1.73 m2eGFR AA* >60 RDW SD 40 RDW CV 13.30 %MPV 10.90 fLPLT 110 NRBC# 0.00 NRBC% 0.0 %NEUT 78.30 %%LYMP 13.20 %%MONO 8.20 %%EOS 0.10 %%BASO 0.20 %#NEUT 8.20 #LYMP 1.38 #MONO 0.86 #EOS 0.01 #BASO 0.02 MANUAL DIFF NOT IND WBC 10.5 RBC 5.31 HGB 15.30 g/dLHCT 43.90 %MCV 83.0 fLMCH 28.80 pgMCHC 34.90 g/dL 12/23/2011 6:45 AM WBC 7.3 RBC 5.14 HGB 14.50 g/dLHCT 43.20 %MCV 84.0 fLMCH 28.20 pgMCHC 33.60 g/dLRDW SD 40 RDW CV 13.40 %MPV 10.80 fLPLT 127 NRBC# 0.00 NRBC% 0.0 %NEUT 53.0 %%LYMP 35.0 %%MONO 8.40 %%EOS 3.20 %%BASO 0.40 %#NEUT 3.87 #LYMP 2.55 #MONO 0.61 #EOS 0.23 #BASO 0.03 MANUAL DIFF NOT IND GLUCOSE 239.0 mg/ dLSODIUM 137.0 mmol/LPOTASSIUM 4.0 mmol/LCHLORIDE 106.0 mmol/LCO2 20.0 mmol/ LBUN 15.0 mg/dLCREATININE 0.80 mg/dLCALCIUM 8.60 mg/dLAGE 46 GFR NonAA 104 GFR AA 126 eGFR 60 eGFR AA* 60 GLYCOHEMOGLOBIN A1C 8.60 % 02/07/2013 4:25 PM GLUCOSE 314.0 mg/dLSODIUM 138.0 mmol/LPOTASSIUM 4.10 mmol/ LCHLORIDE 104.0 mmol/LCO2 21.0 mmol/LBUN 17.0 mg/dLCREATININE 0.90 mg/dLSGOT/ AST 20.0 IU/LSGPT/ALT 34.0 IU/LALK PHOS 60.0 IU/LTOTAL PROTEIN 7.90 g/dLALBUMIN 3.90 g/dLTOTAL BILI 0.40 mg/dLCALCIUM 10.0 mg/dLAGE 47 GFR NonAA 90 GFR AA 109 eGFR 60 eGFR AA* 60 HGB A1C 10.30 %Est Avg Glucose 248.9 mg/dLWBC 8.5 RBC 5.45 HGB 15.60 g/dLHCT 45.10 %MCV 83.0 fLMCH 28.60 pgMCHC 34.60 g/dLRDW SD 40 RDW CV 13.60 %MPV 11.40 fLPLT 153 NRBC# 0.00 NRBC% 0.0 %NEUT 58.20 %%LYMP 35.0 %%MONO 4.30 %%EOS 2.0 %%BASO 0.50 %#NEUT 4.95 #LYMP 2.98 #MONO 0.37 #EOS 0.17 #BASO 0.04 MANUAL DIFF NOT IND RA Factor <15.0 IU/mL 10/11/2013 4:05 PM WBC 8.5 RBC 5.08 HGB 14.40 g/dLHCT 42.30 %MCV 83.0 fLMCH 28.30 pgMCHC 34.0 g/dLRDW SD 42 RDW CV 13.80 %MPV 10.20 fLPLT 129 NRBC# 0.00 NRBC% 0.0 %NEUT 62.30 %%LYMP 29.50 %%MONO 6.0 %%EOS 2.0 %%BASO 0.20 %#NEUT 5.31 #LYMP 2.51 #MONO 0.51 #EOS 0.17 #BASO 0.02 MANUAL DIFF NOT IND GLUCOSE 297.0 mg/ dLSODIUM 139.0 mmol/LPOTASSIUM 4.30 mmol/LCHLORIDE 103.0 mmol/LCO2 24.0 mmol/ LBUN 11.0 mg/dLCREATININE 0.90 mg/dLSGOT/AST 18.0 IU/LSGPT/ALT 30.0 IU/LALK PHOS 69.0 IU/LTOTAL PROTEIN 7.0 g/dLALBUMIN 3.70 g/dLTOTAL BILI 0.40 mg/ dLCALCIUM 9.80 mg/dLAGE 48 GFR NonAA 90 GFR AA 109 eGFR 60 eGFR AA* 60 TROPONIN- I AD 0.050 ng/mL 10/18/2013 12:35 PM HGB A1C 10.60 %Est Avg Glucose 257.5 mg/dL 02/07/2014 11:32 AM WBC 11.3 RBC 5.73 HGB 16.50 g/dLHCT 47.40 %MCV 83.0 fLMCH 28.80 pgMCHC 34.80 g/dLRDW SD 44 RDW CV 14.40 %MPV 11.0 fLPLT 152 NRBC# 0.00 NRBC% 0.0 %NEUT 66.90 %%LYMP 25.80 %%MONO 5.10 %%EOS 1.90 %%BASO 0.30 %#NEUT 7.56 #LYMP 2.91 #MONO 0.58 #EOS 0.21 #BASO 0.03 MANUAL DIFF NOT IND GLUCOSE 170.0 mg/dLSODIUM 142.0 mmol/LPOTASSIUM 4.50 mmol/LCHLORIDE 104.0 mmol/LCO2 24.0 mmol/LBUN 18.0 mg/dLCREATININE 0.90 mg/dLSGOT/AST 25.0 IU/LSGPT/ALT 43.0 IU /LALK PHOS 64.0 IU/LTOTAL PROTEIN 8.30 g/dLALBUMIN 4.40 g/dLTOTAL BILI 0.50 mg/ dLCALCIUM 10.0 mg/dLAGE 48 GFR NonAA 90 GFR AA 109 eGFR 60 eGFR AA* 60 HGB A1C 8.60 %Est Avg Glucose 200.1 mg/dL 04/30/2014 12:50 PM COLOR YELLOW APPEARANCE CLOUDY SPEC GRAV >=1.030 pH 5.0 PROTEIN NEGATIVE GLUCOSE 500 KETONE NEGATIVE BILIRUBIN NEGATIVE BLOOD MODERATE NITRITE NEGATIVE LEUK SCREEN TRACE WBC/HPF 100-200 RBC/HPF RARE CASTS/LPF NEGATIVE CRYSTALS NEGATIVE MUCOUS THRDS NEGATIVE BACTERIA FEW EPITH CELLS NEGATIVE TRICHOMONAS NEGATIVE YEAST 4++++ 06/10/2014 10:59 AM Bilirub Ur Ql Strip -VE Glucose Ur-sCnc 4+ Hgb Ur Ql Strip -VE Ketones Ur Ql Strip -VE Nitrite Ur Ql Strip -VE pH Ur-LsCnc 6.0 Prot Ur Ql Strip 1+ Sp Gr Ur Qn 1015 Urobilinogen Ur-mCnc -VE WBC Est Ur Ql Strip 1+ 04/20/2015 4:05 PM GLUCOSE 169.0 mg/dLSODIUM 139.0 mmol/LPOTASSIUM 3.80 mmol/ LCHLORIDE 105.0 mmol/LCO2 23.0 mmol/LBUN 17.0 mg/dLCREATININE 0.80 mg/dLSGOT/ AST 16.0 IU/LSGPT/ALT 27.0 IU/LALK PHOS 66.0 IU/LTOTAL PROTEIN 7.50 g/dLALBUMIN 4.0 g/dLTOTAL BILI 0.30 mg/dLCALCIUM 9.30 mg/dLAGE 49 GFR NonAA 103 GFR AA 125 eGFR >60 mL/min/1.73meGFR AA* >60 WBC 8.4 RBC 5.29 HGB 15.30 g/dLHCT 44.40 % MCV 84.0 fLMCH 28.90 pgMCHC 34.50 g/dLRDW SD 41 RDW CV 13.60 %MPV 10.90 fLPLT 135 NRBC# 0.00 NRBC% 0.0 %NEUT 65.50 %%LYMP 27.10 %%MONO 4.60 %%EOS 2.60 %%BASO 0.20 %#NEUT 5.52 #LYMP 2.29 #MONO 0.39 #EOS 0.22 #BASO 0.02 MANUAL DIFF NOT IND Hemoglobin A1c 10.40 %Estim. Avg Glu (eAG) 252 mg/dL 08/31/2015 2:45 PM WBC 9.9 RBC 4.88 HGB 13.80 g/dLHCT 42.20 %MCV 87.0 fLMCH 28.30 pgMCHC 32.70 g/dLRDW SD 43 RDW CV 13.70 %MPV 11.30 fLPLT 158 NRBC# 0.00 NRBC% 0.0 %NEUT 63.90 %%LYMP 26.40 %%MONO 7.20 %%EOS 2.30 %%BASO 0.20 %#NEUT 6.35 #LYMP 2.62 #MONO 0.72 #EOS 0.23 #BASO 0.02 MANUAL DIFF NOT IND GLUCOSE 132.0 mg/dLSODIUM 142.0 mmol/LPOTASSIUM 4.40 mmol/LCHLORIDE 104.0 mmol/LCO2 27.0 mmol/LBUN 17.0 mg/dLCREATININE 0.90 mg/dLSGOT/AST 20.0 IU/LSGPT/ALT 32.0 IU /LALK PHOS 63.0 IU/LTOTAL PROTEIN 6.60 g/dLALBUMIN 4.0 g/dLTOTAL BILI 0.30 mg/ dLCALCIUM 8.90 mg/dLAGE 50 GFR NonAA 89 GFR AA 108 eGFR >60 mL/min/1.73meGFR AA* >60 01/22/2016 1:20 PM SPECIMEN SOURCE: 2ED METATARSAL HEAD SPECIMEN SOURCE: 2ED METATARSAL HEAD 01/22/2016 1:22 PM SPECIMEN SOURCE: 1ST METATARSAL HEAD SPECIMEN SOURCE: 1ST METATARSAL HEAD SPECIMEN SOURCE: 1ST METATARSAL HEAD History Of Immunizations Not available. History of Past Illness Name Date of Onset Comments Hypertension Jul 06 2009 8:57AM Diabetes Mellitus, Type II Jul 06 2009 8:57AM Depression and anxiety Jul 06 2009 8:57AM Diabetes Mellitus, Type II Hypertension Hypercholesterolemia Diabetes Mellitus, Type II Aug 17 2009 3:49PM Abdominal Pain Aug 17 2009 3:49PM Diabetes Mellitus, Type II Aug 27 2009 3:36PM Abdominal Pain Aug 27 2009 3:36PM Diabetes Mellitus, Type II Oct 05 2009 1:30PM Wound of foot except toe(s) Uncomplicated Oct 05 2009 1:30PM Diabetes Mellitus, Type II Dec 14 2009 3:05PM Impotence, cause undetermined Dec 14 2009 3:05PM Diabetes Mellitus, Type II Mar 02 2010 8:03AM Cellulitis/Abscess, unspecified Mar 02 2010 8:03AM Cellulitis/Abscess, unspecified Mar 02 2010 1:36PM Diabetes Mellitus, Type II Mar 30 2010 2:29PM Diabetes Mellitus, Type II Apr 13 2010 3:35PM Hematuria 06/10/2014 Urinary Tract Infection 06/10/2014 Microscopic hematuria 06/10/2014 Diabetes Mellitus, Type II Jun 24 2010 3:56PM Depression and anxiety Jun 24 2010 3:56PM Hypertension, Benign Essential Dec 14 2010 11:11AM Cellulitis/Abscess Dec 14 2010 11:11AM Cellulitis/Abscess, unspecified Dec 16 2010 1:45PM Cellulitis/Abscess, unspecified Jul 14 2011 11:01AM Diabetes Mellitus, Type II Dec 22 2011 3:32PM Hypertension Dec 22 2011 3:32PM Hyperlipidemia, unspecified Dec 22 2011 3:32PM Screening For Prostate Cancer Dec 22 2011 3:32PM General Medical Exam, School/Work/etc Oct 23 2012 3:21PM Joint Pain Feb 07 2013 3:54PM Diabetes Mellitus, Type II Feb 07 2013 3:54PM Cellulitis Jul 17 2013 10:52AM Upper Respiratory Infection Aug 28 2013 6:24PM Palpitations Oct 11 2013 2:37PM Chest Pain, Atypical Oct 11 2013 2:37PM Diabetes Mellitus, Type II Oct 18 2013 10:49AM Diabetes Mellitus, Type II, Uncontrolled Oct 24 2013 3:01PM Pain in joint; shoulder region Oct 24 2013 3:01PM Diabetes Mellitus, Type II, Uncontrolled Feb 07 2014 10:40AM Depression and anxiety Feb 07 2014 10:40AM Urinary Tract Infection Apr 24 2014 2:39PM Hematuria May 13 2014 1:38PM Hematuria Jun 10 2014 9:21AM Urinary Tract Infection Jun 10 2014 9:21AM Microscopic hematuria Jun 10 2014 9:21AM Bronchitis, Acute Nov 24 2014 1:43PM Sciatic leg pain Feb 16 2015 3:44PM Depression Feb 16 2015 3:44PM Neuropathy Feb 16 2015 3:44PM Diabetes Mellitus, Type II Apr 20 2015 3:14PM Palpitations Apr 28 2015 2:50PM Diabetes Mellitus, Type II May 04 2015 3:37PM Palpitation May 04 2015 3:37PM Diabetes Mellitus, Type II Aug 17 2015 3:52PM Cellulitis of the foot Jan 21 2016 12:06PM Hypertension Feb 16 2016 1:27PM Diabetes Mellitus, Type II Feb 16 2016 1:27PM Depression Feb 16 2016 1:27PM Scrotal abscess May 18 2016 2:07PM Payers Insurance Name Company Name Plan Name Plan Number Policy Number Policy Group Number Start Date [facility] [id number] N/A History of Encounters Visit Date Visit Type Provider 05/18/2016 Procedures Simon Wills MD 02/16/2016 Office visit Todd Topete MD 01/22/2016 Hospital Simon Wills MD 08/17/2015 Office visit Todd Topete MD 05/04/2015 Office visit Todd Topete MD 04/28/2015 Hospital Adeel Terrazas MD 04/20/2015 Office visit Todd Topete MD 02/16/2015 Office visit Robson Samuel APRN 11/24/2014 Office visit Robson Samuel APRN 06/10/2014 Office visit Liss Kirk MD 05/13/2014 Office visit Todd Topete MD 04/24/2014 Office visit Todd Topete MD 02/12/2014 Procedures Simon Wills MD 02/11/2014 Procedures Simon Wills MD 02/07/2014 Office visit Todd Topete MD 02/05/2014 Procedures Simon Wills MD 02/04/2014 Procedures Simon Wills MD 02/03/2014 Procedures Simon Wills MD 01/31/2014 Procedures Simon Wills MD 01/29/2014 Procedures Simon Wills MD 01/28/2014 Procedures Simon Wills MD 01/22/2014 Procedures Simon Wills MD 01/15/2014 Procedures Simon Wills MD 01/08/2014 Procedures Simon Wills MD 12/25/2013 Procedures Simon Wills MD 12/11/2013 Hospital Adeel Terrazas MD 10/24/2013 Office visit Todd Topete MD 10/11/2013 Office visit Robson Samuel APRN 10/11/2013 [facility] Adeel Terrazas MD 08/28/2013 Office visit Robson Samuel APRN 07/17/2013 Office visit SHRUTI PEREZ 02/07/2013 Office visit Todd Topete MD 10/23/2012 Office visit Todd Topete MD 12/22/2011 Office visit Todd Topete MD 11/21/2011 Voided Todd Topete MD 07/14/2011 Office visit Todd Topete MD 12/16/2010 Office visit Todd Topete MD 12/14/2010 Office visit Chriss Pleitez PA-C 06/24/2010 Office visit Todd Topete MD 04/13/2010 Office visit Todd Topete MD 03/30/2010 Office visit Todd Topete MD 03/04/2010 Voided Todd Topete MD 03/02/2010 Office visit Todd Topete MD 12/14/2009 Office visit Todd Topete MD 10/05/2009 Office visit Todd Topete MD 08/27/2009 Office visit Todd Topete MD 08/17/2009 Office visit Todd Topete MD 07/06/2009 Office visit Todd Topete MD 05/21/2009 Office visit Todd Topete MD 05/15/2009 Laboratory Elijah Marie MD 05/14/2009 Laboratory Elijah Marie MD 05/14/2009 Laboratory Elijah Marie MD 05/14/2009 Hospital Elijah Marie MD
--- OUTSIDE RECORDS SUMMARY | 2018-06-05 14:19 | XMS REPORT ---
Author Author Todd Topete [facility] Address [address] [place], [place] [id number] Care Team Providers Care Level Vial Inside Grinder Name Role Phone Todd Topete PCP Unavailable Allergies and Adverse Reactions Name Reaction Notes NO KNOWN DRUG ALLERGIES Plan of Treatment Planned Activity Comments Planned Date Planned Time Plan/Goal LIPID PANEL 12/22/2011 12:00 AM COMPREHEN METABOLIC PANEL 02/07/2014 12:00 AM URINE BACTERIA CULTURE 06/10/2014 12:00 AM Medications Active Name Start Date Estimated Completion Date SIG Comments Aspirin Oral Tablet 81 mg Cheratussin AC oral liquid 10-100 mg/5 mL 08/28/2013 take 10 milliliters by oral route every 4 hours as needed Farxiga oral tablet 10 mg 10/24/2013 take 1 tablet (10 mg) by oral route once daily in the morning Diflucan oral tablet 150 mg 05/01/2014 take 1 tablet (150 mg) by oral route x1 repeat x1 next week. Lantus Solostar subcutaneous insulin pen 100 unit/mL (3 mL) 06/19/2014 INJECT UP TO 70 UNITS EVERY DAY DIRECTED ICD-9 250.01 Farxiga oral tablet 10 mg 08/19/2014 TAKE 1 TABLET BY MOUTH ONCE DAILY Percocet oral tablet 10-325 mg 09/30/2014 take 1 tablet by oral route every 6 hours as needed Novolog subcutaneous solution 100 unit/mL 11/04/2014 INJECT 50 UNITS BY SUBCUTANEOUS ROUTE BEFORE MEALS DIRECTED Levaquin oral tablet 750 mg 11/24/2014 12/01/2014 take 1 tablet (750 mg) by oral route once daily for 7 days Name Start Date Expiration Date SIG Comments Lisinopril Oral Tablet 20 mg 07/06/2009 11/03/2009 take 1 tablet (20 mg) by oral route once daily Tricor Oral Tablet 145 mg take 1 tablet (145 mg) by oral route once daily Protonix Oral Tablet, Delayed Release (E.C.) 40 mg take 1 tablet (40 mg ) by oral route once daily Ativan Oral Tablet 0.5 mg take 1/2 tablet by oral route Q4H PRN Amrix Oral Capsule, Sust. Release 24 hr 15 mg 08/28/2009 take 1 capsule ( 15 mg) by oral route once daily Cialis Oral Tablet 5 mg 11/05/2010 11/05/2010 take 1 tablet (5 mg) by oral route once daily Augmentin Oral Tablet 875-125 mg 12/14/2010 12/24/2010 take 1 tablet by oral route every 12 hours for 10 days Bactrim DS Oral Tablet 800-160 mg 08/09/2011 08/16/2011 take 1 tablet by oral route 3 times a day for 7 days Unifine Pentips Miscellaneous Needle 31 X 07/13 " 06/21/2012 07/21/2012 DIRECTED Cipro Oral tablet 500 mg 07/30/2012 08/06/2012 take 1 tablet (500 mg) by oral route every 12 hours for 7 days Apidra Subcutaneous Solution 100 unit/mL 12/31/2012 01/30/2013 INJECT 40 UNITS BEFORE MEALS DIRECTED Lantus Solostar Subcutaneous Insulin Pen 100 unit/mL (3 mL) 03/18/20132012 INJECT UPTO 70 UNITS EVERY DAY DIRECTED amoxicillin oral capsule 500 mg 08/28/2013 09/04/2013 take 1 capsule (500 mg) by oral route every 8 hours for 7 days Levaquin oral tablet 500 mg 08/30/2013 09/06/2013 take 1 tablet (500 mg) by oral route once daily for 7 days Abilify oral tablet 5 mg 02/07/2014 03/09/2014 take 1 tablet (5 mg) by oral route once daily for 30 days Celexa oral tablet 20 mg 03/06/2014 10/02/2014 take 1 tablet (20 mg) by oral route once daily for 30 days Novolog subcutaneous solution 100 unit/mL 08/04/2014 09/03/2014 inject 1 milliliter by subcutaneous route 3 times a day for 30 days as directed Zithromax Z-Сергей oral tablet 250 mg 10/23/2014 10/28/2014 take 2 tablets (500 mg) by oral route once daily for 1 day then 1 tablet (250 mg) by oral route once daily for 4 days Discontinued Name Start Date Discontinued Date SIG Comments Cymbalta Oral Capsule, Delayed Release(E.C.) 30 mg 07/06/2009 04/13/2010 take 2 capsules (60 mg) by oral route once daily Byetta Subcutaneous Pen Injector 5 mcg/0.02 mL 07/06/2009 08/18/2009 inject 0.02 milliliter (5 mcg) by subcutaneous route 2 times per day before morning and evening meals Lotrisone Topical Cream 1-0.05 % 12/14/2009 07/17/2013 apply to the affected and surrounding areas of skin by topical route 2 times per day morning and evening Pristiq Oral Tablet Sustained Release 24 hr 50 mg 06/28/2010 07/17/2013 take 1 tablet (50 mg) by oral route once daily Apidra SoloStar subcutaneous insulin pen 100 unit/mL 04/24/2014 08/04/2014 50 units [facility] Problem List Description Status Onset Diabetes Mellitus, Type II Active Hypertension Active Hematuria Active 06/10/2014 Urinary tract infection Active 06/10/2014 Microscopic hematuria Active 06/10/2014 Vital Signs Date Time BP-Sys(mm[Hg] BP-Alana(mm[Hg]) HR(bpm) RR(rpm) Temp WT HT HC BMI BSA BMI Percentile O2 Sat(%) 11/24/2014 1:20:00 PM 135 mmHg 80 mmHg 102 bpm 22 rpm 99.3 F 404.25 lbs 76 in 49.21 kg/m2 3.14 m2 94 % 06/10/2014 9:14:00 AM 398 lbs 76 in 48.4456 kg/m 3.1113 m 05/13/2014 1:34:00 PM 144 mmHg 70 mmHg 88 bpm 22 rpm 97.5 F 396 lbs 76 in 48.20 kg/m2 3.10 m2 04/24/2014 2:35:00 PM 132 mmHg 74 mmHg 88 bpm 18 rpm 97.2 F 389 lbs 76 in 47.3501 kg/m 3.076 m 02/07/2014 10:33:00 AM 155 mmHg 85 mmHg 88 bpm 95 F 391 lbs 75 in 48.87 kg/m2 3.06 m2 94 % 10/24/2013 2:58:00 PM 114 mmHg 60 mmHg 88 bpm 20 rpm 97.4 F 395 lbs 76 in 48.0804 kg/m 3.0996 m 10/11/2013 2:36:00 PM 150 mmHg 80 mmHg 98 bpm 18 rpm 97.4 F 289 lbs 96 % 08/28/2013 6:20:00 PM 166 mmHg 82 mmHg 92 bpm 18 rpm 97.3 F 391.125 lbs 76 in 47.6087 kg/m 3.0844 m 96 % 07/17/2013 10:49:00 AM 152 mmHg 82 mmHg 103 bpm 20 rpm 98.3 F 382 lbs 76 in 46.50 kg/m2 3.05 m2 96 % 02/07/2013 3:49:00 PM 148 mmHg 80 mmHg 91 bpm 18 rpm 98.3 F 382.25 lbs 76 in 46.5285 kg/m 3.0492 m 96 % 10/23/2012 3:16:00 PM 140 mmHg 88 mmHg 80 bpm 20 rpm 97.4 F 382 lbs 76 in 46.50 kg/m2 3.05 m2 12/22/2011 3:28:00 PM 132 mmHg 70 mmHg 78 bpm 20 rpm 96.4 F 379 lbs 76 in 46.1329 kg/m 3.0362 m 11/21/2011 3:04:00 PM 150 mmHg 74 mmHg 78 bpm 20 rpm 97.8 F 387 lbs 76 in 47.11 kg/m2 3.07 m2 07/14/2011 10:57:00 AM 124 mmHg 82 mmHg 64 bpm 20 rpm 97.6 F 365 lbs 76 in 44.4287 kg/m 2.9796 m 12/16/2010 1:43:00 PM 144 mmHg 82 mmHg [...] rpm 96.4 F 358.375 lbs 76 in 43.62 kg/m2 2.95 m2 07/06/2009 8:54:00 AM 118 mmHg 74 mmHg 78 bpm 16 rpm 97.6 F 357 lbs Social History Name Description Comments Alcohol Use social Walking Tobacco Never smoker History of Procedures Date Ordered Description Order Status 08/17/2009 12:00 AM GLYCOSYLATED HEMOGLOBIN TEST Reviewed 12/22/2011 12:00 AM COMPLETE CBC W/AUTO DIFF WBC Reviewed 12/22/2011 12:00 AM GLYCOSYLATED HEMOGLOBIN TEST Reviewed 12/22/2011 12:00 AM COMPREHEN METABOLIC PANEL Reviewed 02/07/2013 12:00 AM COMPLETE CBC W/AUTO DIFF WBC Reviewed 02/07/2013 12:00 AM COMPREHEN METABOLIC PANEL Reviewed 02/07/2013 12:00 AM GLYCOSYLATED HEMOGLOBIN TEST Reviewed 02/07/2013 12:00 AM RHEUMATOID FACTOR TEST QUAL Reviewed 08/28/2013 12:00 AM THER/PROPH/DIAG INJ SC/IM Reviewed 10/11/2013 12:00 AM ELECTROCARDIOGRAM COMPLETE Reviewed [...] GLYCOSYLATED HEMOGLOBIN TEST Reviewed 04/24/2014 12:00 AM URINALYSIS Reviewed 05/13/2014 [...] mg/LTRIGLYCERIDES 380.0 mg/ dLCHOLESTEROL 212.0 mg/dLHDL 33.0 mg/dLLDL (CALC) 103.0 mg/dLGLYCOHEMOGLOBIN A1C 10.20 %GLUCOSE 249.0 mg/dLSODIUM 132.0 mmol/LPOTASSIUM 3.90 mmol/LCHLORIDE 98.0 mmol/LCO2 22.0 mmol/LBUN 10.0 mg/dLCREATININE 0.80 mg/dLSGOT/AST 53.0 IU/ LSGPT/ALT 70.0 IU/LALK PHOS 62.0 IU/LTOTAL PROTEIN 7.20 g/dLALBUMIN 3.90 g/ dLTOTAL BILI 1.0 mg/dLCALCIUM 8.90 mg/dLeGFR >60 mL/min/1.73 m2RDW CV 13.30 % MPV 10.90 fLPLT 110 %NEUT 78.30 %%LYMP 13.20 %%MONO 8.20 %%EOS 0.10 %%BASO 0.20 %#NEUT 8.20 #LYMP 1.38 #MONO 0.86 #EOS 0.01 #BASO 0.02 WBC 10.5 RBC 5.31 HGB 15.30 g/dLHCT 43.90 %MCV 83.0 fLMCH 28.80 pgMCHC 34.90 g/dL 12/23/2011 6:45 AM WBC 7.3 RBC 5.14 HGB 14.50 g/dLHCT 43.20 %MCV 84.0 fLMCH 28.20 pgMCHC 33.60 g/dLRDW CV 13.40 %MPV 10.80 fLPLT 127 %NEUT 53.0 %%LYMP 35.0 %%MONO 8.40 %%EOS 3.20 %%BASO 0.40 %#NEUT 3.87 #LYMP 2.55 #MONO 0.61 #EOS 0.23 # BASO 0.03 GLUCOSE 239.0 mg/dLSODIUM 137.0 mmol/LPOTASSIUM 4.0 mmol/LCHLORIDE 106.0 mmol/LCO2 20.0 mmol/LBUN 15.0 mg/dLCREATININE 0.80 mg/dLCALCIUM 8.60 mg/ dLeGFR 60 GLYCOHEMOGLOBIN A1C 8.60 % 02/07/2013 4:25 PM GLUCOSE 314.0 mg/dLSODIUM 138.0 mmol/LPOTASSIUM 4.10 mmol/ LCHLORIDE 104.0 mmol/LCO2 21.0 mmol/LBUN 17.0 mg/dLCREATININE 0.90 mg/dLSGOT/ AST 20.0 IU/LSGPT/ALT 34.0 IU/LALK PHOS 60.0 IU/LTOTAL PROTEIN 7.90 g/dLALBUMIN 3.90 g/dLTOTAL BILI 0.40 mg/dLCALCIUM 10.0 mg/dLeGFR 60 HGB A1C 10.30 %WBC 8.5 RBC 5.45 HGB 15.60 g/dLHCT 45.10 %MCV 83.0 fLMCH 28.60 pgMCHC 34.60 g/dLRDW CV 13.60 %MPV 11.40 fLPLT 153 %NEUT 58.20 %%LYMP 35.0 %%MONO 4.30 %%EOS 2.0 %%BASO 0.50 %#NEUT 4.95 #LYMP 2.98 #MONO 0.37 #EOS 0.17 #BASO 0.04 RA Factor <15.0 IU/ mL 10/11/2013 4:05 PM WBC 8.5 RBC 5.08 HGB 14.40 g/dLHCT 42.30 %MCV 83.0 fLMCH 28.30 pgMCHC 34.0 g/dLRDW CV 13.80 %MPV 10.20 fLPLT 129 %NEUT 62.30 %%LYMP 29.50 %%MONO 6.0 %%EOS 2.0 %%BASO 0.20 %#NEUT 5.31 #LYMP 2.51 #MONO 0.51 #EOS 0.17 #BASO 0.02 GLUCOSE 297.0 mg/dLSODIUM 139.0 mmol/LPOTASSIUM 4.30 mmol/ LCHLORIDE 103.0 mmol/LCO2 24.0 mmol/LBUN 11.0 mg/dLCREATININE 0.90 mg/dLSGOT/ AST 18.0 IU/LSGPT/ALT 30.0 IU/LALK PHOS 69.0 IU/LTOTAL PROTEIN 7.0 g/dLALBUMIN 3.70 g/dLTOTAL BILI 0.40 mg/dLCALCIUM 9.80 mg/dLeGFR 60 TROPONIN-I AD 0.050 ng/ mL 10/18/2013 12:35 PM HGB A1C 10.60 % 02/07/2014 11:32 AM WBC 11.3 RBC 5.73 HGB 16.50 g/dLHCT 47.40 %MCV 83.0 fLMCH 28.80 pgMCHC 34.80 g/dLRDW CV 14.40 %MPV 11.0 fLPLT 152 %NEUT 66.90 %%LYMP 25.80 %%MONO 5.10 %%EOS 1.90 %%BASO 0.30 %#NEUT 7.56 #LYMP 2.91 #MONO 0.58 #EOS 0.21 #BASO 0.03 GLUCOSE 170.0 mg/dLSODIUM 142.0 mmol/LPOTASSIUM 4.50 mmol/ LCHLORIDE 104.0 mmol/LCO2 24.0 mmol/LBUN 18.0 mg/dLCREATININE 0.90 mg/dLSGOT/ AST 25.0 IU/LSGPT/ALT 43.0 IU/LALK PHOS 64.0 IU/LTOTAL PROTEIN 8.30 g/dLALBUMIN 4.40 g/dLTOTAL BILI 0.50 mg/dLCALCIUM 10.0 mg/dLeGFR 60 HGB A1C 8.60 % 04/30/2014 12:50 PM COLOR YELLOW APPEARANCE CLOUDY SPEC GRAV >=1.030 pH 5.0 PROTEIN NEGATIVE GLUCOSE 500 KETONE NEGATIVE BILIRUBIN NEGATIVE BLOOD MODERATE NITRITE NEGATIVE LEUK SCREEN TRACE CASTS/LPF NEGATIVE CRYSTALS NEGATIVE MUCOUS THRDS NEGATIVE BACTERIA FEW EPITH CELLS NEGATIVE TRICHOMONAS NEGATIVE YEAST 4+++ + 06/10/2014 10:59 AM Bilirub Ur Ql Strip -VE Glucose Ur-sCnc 4+ Hgb Ur Ql Strip -VE Ketones Ur Ql Strip -VE Nitrite Ur Ql Strip -VE pH Ur-LsCnc 6.0 Prot Ur Ql Strip 1+ Sp Gr Ur Qn 1015 Urobilinogen Ur-mCnc -VE WBC Est Ur Ql Strip 1+ History Of Immunizations Not available. History of [...] Apr 13 2010 3:35PM Hematuria 06/10/2014 Urinary tract infection 06/10/2014 Microscopic hematuria 06/10/2014 Diabetes Mellitus, Type [...] 9:21AM Bronchitis, Acute Nov 24 2014 1:43PM Payers Insurance Name Company Name Plan Name Plan Number Policy Number Policy Group Number [id number] N/A History of Encounters Visit Date Visit Type Provider 11/24/2014 Office visit Robson Samuel APRN 06/10/2014 [...] 10/11/2013 Office visit Robson Samuel APRN 10/11/2013 [facility] Adeel Terrazas MD 08/28/2013 Office visit Robson Samuel APRN 07/17/2013 Office visit SHRUTI PEREZ 02/07/2013 Office visit Todd Topete MD 10/23/2012 Office visit Todd Topete MD 12/22/2011 Office visit Todd Topete MD 11/21/2011 Voidloli Topete MD 07/14/2011 Office visit Todd Topete [...] MD 05/14/2009 Laboratory Elijah Marie MD 05/14/2009 [facility] Elijah Marie MD
--- OUTSIDE RECORDS SUMMARY | 2018-06-05 14:20 | XMS REPORT ---
Author Author Todd Topete [facility] Address [address] [place], [place] [id number] Care Team Providers Care Elevator Adjuster Name Role Phone Todd Topete PCP Unavailable [...] 70 UNITS EVERY DAY DIRECTED ICD-9 250.01 Percocet 10-325 mg oral tablet 02/16/2015 take 1 tablet by oral route every 6 hours as needed Viibryd 10 mg (7)-20 mg (7)-40 mg (16) oral tablets,dose pack 02/16/2015 take as directed Novolog 100 unit/mL subcutaneous solution 04/15/2015 INJECT 50 UNITS BY SUBCUTANEOUS ROUTE BEFORE MEALS DIRECTED Toujeo SoloStar 300 unit/mL (1.5 mL) subcutaneous insulin pen 04/20/2015 70 units daily Name Start Date Expiration Date SIG Comments [...] tablet by oral route every 12 hours Discontinued Name Start Date Discontinued Date SIG [...] subcutaneous insulin pen 04/24/2014 08/04/2014 50 units [facility] Farxiga 10 mg oral tablet 08/19/2014 02/16/2015 [...] HC BMI BSA BMI Percentile O2 Sat(%) 04/20/2015 3:13:00 PM 140 mmHg 86 mmHg 99 bpm 18 rpm 98.6 F 366.5 lbs 76 in 44.61 kg/m2 2.99 m2 94 % 02/16/2015 3:42:00 PM 158 mmHg 80 mmHg 98 bpm 20 rpm 99 F 401.375 lbs 76 in 48.8564 kg/m 3.1245 m 96 % 11/24/2014 1:20:00 PM [...] Reviewed 07/17/2013 12:00 AM Rocephin 1 gram [facility]#2409-1927-12 Reviewed 08/28/2013 12:00 AM THER/PROPH/DIAG INJ SC/IM Reviewed 08/28/2013 12:00 AM Decadron, Per 1 Mg [facility]# [address]-64 Reviewed 08/28/2013 12:00 AM Depo-Medrol, Per 80 Mg [facility]#0728-2640-17 Reviewed 10/11/2013 12:00 AM ELECTROCARDIOGRAM COMPLETE Reviewed [...] Reviewed 04/24/2014 12:00 AM Rocephin 1 gram [facility]#1458-3390-82 Reviewed 04/24/2014 12:00 AM URINALYSIS Reviewed 05/13/2014 [...] dLCHOLESTEROL 212.0 mg/dLHDL 33.0 mg/dLLDL (CALC) 103.0 mg/dLGLUCOSE 249.0 mg/ dLSODIUM 132.0 mmol/LPOTASSIUM 3.90 mmol/LCHLORIDE 98.0 mmol/LCO2 22.0 mmol/ LBUN 10.0 mg/dLCREATININE 0.80 mg/dLSGOT/AST 53.0 IU/LSGPT/ALT 70.0 IU/LALK PHOS 62.0 IU/LTOTAL PROTEIN 7.20 g/dLALBUMIN 3.90 g/dLTOTAL BILI 1.0 mg/ dLCALCIUM 8.90 mg/dLeGFR >60 mL/min/1.73 m2RDW CV 13.30 %MPV 10.90 fLPLT 110 % NEUT 78.30 %%LYMP 13.20 %%MONO 8.20 %%EOS 0.10 %%BASO 0.20 %#NEUT 8.20 #LYMP 1.38 #MONO 0.86 #EOS 0.01 #BASO 0.02 WBC 10.5 RBC 5.31 HGB 15.30 g/dLHCT 43.90 % MCV 83.0 fLMCH 28.80 pgMCHC 34.90 g/dL 12/23/2011 [...] mg/dLCREATININE 0.80 mg/dLCALCIUM 8.60 mg/ dLeGFR 60 02/07/2013 4:25 PM GLUCOSE 314.0 mg/dLSODIUM 138.0 mmol/LPOTASSIUM 4.10 mmol/ LCHLORIDE 104.0 mmol/LCO2 21.0 mmol/LBUN 17.0 mg/dLCREATININE 0.90 mg/dLSGOT/ AST 20.0 IU/LSGPT/ALT 34.0 IU/LALK PHOS 60.0 IU/LTOTAL PROTEIN 7.90 g/dLALBUMIN 3.90 g/dLTOTAL BILI 0.40 mg/dLCALCIUM 10.0 mg/dLeGFR 60 Est Avg Glucose 248.9 mg /dLWBC 8.5 RBC 5.45 HGB 15.60 g/dLHCT 45.10 %MCV 83.0 fLMCH 28.60 pgMCHC 34.60 g /dLRDW CV 13.60 %MPV 11.40 fLPLT 153 %NEUT 58.20 %%LYMP 35.0 %%MONO 4.30 %%EOS 2.0 %%BASO 0.50 %#NEUT 4.95 #LYMP 2.98 #MONO 0.37 #EOS 0.17 #BASO 0.04 RA Factor <15.0 IU/mL 10/11/2013 4:05 PM [...] AD 0.050 ng/ mL 10/18/2013 12:35 PM Est Avg Glucose 257.5 mg/dL 02/07/2014 11:32 AM [...] g/dLTOTAL BILI 0.50 mg/dLCALCIUM 10.0 mg/dLeGFR 60 Est Avg Glucose 200.1 mg /dL 04/30/2014 12:50 PM COLOR YELLOW APPEARANCE CLOUDY [...] g/dLALBUMIN 4.0 g/dLTOTAL BILI 0.30 mg/dLCALCIUM 9.30 mg/dLeGFR >60 mL/min/1.73mWBC 8.4 RBC 5.29 HGB 15.30 g/dLHCT 44.40 %MCV 84.0 fLMCH 28.90 pgMCHC 34.50 g/dLRDW CV 13.60 %MPV 10.90 fLPLT 135 %NEUT 65.50 %%LYMP 27.10 %%MONO 4.60 %%EOS 2.60 %% BASO 0.20 %#NEUT 5.52 #LYMP 2.29 #MONO 0.39 #EOS 0.22 #BASO 0.02 Estim. Avg Glu (eAG) 252 mg/dL History Of Immunizations Not available. History of [...] Mellitus, Type II Apr 20 2015 3:14PM Payers Insurance Name Company Name Plan Name Plan Number Policy Number Policy Group Number Start Date [facility] [id number] N/A History of Encounters Visit Date Visit Type Provider 04/20/2015 Office visit Todd Topete MD 02/16/2015 Office visit Robson Samuel STOCK HANDLER FLOORPERSON 11/24/2014 Office visit Robson Samuel APRN 06/10/2014 [...]
--- OUTSIDE RECORDS SUMMARY | 2018-06-05 14:21 | XMS REPORT ---
Author Author Todd Topete [facility] Address [address] [place], [place] [id number] Care Team Providers Care Publishing Agent Name Role Phone Todd Topete PCP Unavailable Allergies and Adverse Reactions Name Reaction Notes NO KNOWN DRUG ALLERGIES Plan of Treatment Planned Activity Comments Planned Date Planned Time Plan/Goal ELECTROCARDIOGRAM COMPLETE 04/28/2015 12:00 AM LIPID PANEL 12/22/2011 12:00 AM COMPREHEN METABOLIC [...] 70 UNITS EVERY DAY DIRECTED ICD-9 250.01 Viibryd 10 mg (7)-20 mg (7)-40 mg [...] UNITS BY SUBCUTANEOUS ROUTE BEFORE MEALS DIRECTED Percocet 10-325 mg oral tablet 11/27/2015 take 1 tablet by oral route every 6 hours as needed Name Start Date Expiration Date SIG Comments [...] oral route once daily for 28 days Discontinued Name Start Date Discontinued Date [...] subcutaneous insulin pen 04/24/2014 08/04/2014 50 units [facility] Farxiga 10 mg oral tablet 08/19/2014 02/16/2015 [...] HC BMI BSA BMI Percentile O2 Sat(%) 01/15/2016 9:14:00 AM 157 mmHg 67 mmHg 106 bpm 18 rpm 101.3 F 385 lbs 96 % 08/17/2015 3:50:00 PM 134 mmHg 86 mmHg 89 bpm 20 rpm 99 F 402 lbs 76 in 48.9325 kg/m 3.1269 m 95 % 05/04/2015 3:34:00 PM 154 mmHg 76 mmHg 94 bpm 18 rpm 98.5 F 395 lbs 76 in 48.08 kg/m2 3.10 m2 04/20/2015 3:13:00 PM 140 mmHg 86 mmHg 99 bpm 18 rpm 98.6 F 396.5 lbs 76 in 48.263 kg/m 3.1055 m 94 % 02/16/2015 3:42:00 PM 158 mmHg 80 mmHg 98 bpm 20 rpm 99 F 401.375 lbs 76 in 48.86 kg/m2 3.12 m2 96 % 11/24/2014 1:20:00 PM 135 mmHg [...] Reviewed 07/17/2013 12:00 AM Rocephin 1 gram [facility]#3318-9519-65 Reviewed 08/28/2013 12:00 AM THER/PROPH/DIAG INJ SC/IM Reviewed 08/28/2013 12:00 AM Decadron, Per 1 Mg [facility]# [address]-28 Reviewed 08/28/2013 12:00 AM Depo-Medrol, Per 80 Mg [facility]#8763-4020-97 Reviewed 10/11/2013 12:00 AM ELECTROCARDIOGRAM COMPLETE Reviewed [...] Reviewed 04/24/2014 12:00 AM Rocephin 1 gram [facility]#9655-4972-77 Reviewed 04/24/2014 12:00 AM URINALYSIS Reviewed 05/13/2014 [...] mg/dLCALCIUM 10.0 mg/dLeGFR 60 HGB A1C 10.30 %Est Avg Glucose [...] mL 10/18/2013 12:35 PM HGB A1C 10.60 %Est Avg Glucose 257.5 mg/dL 02/07/2014 11:32 AM WBC 11.3 RBC 5.73 HGB 16.50 g/dLHCT 47.40 %MCV 83.0 fLH 28.80 pgHC 34.80 g/dLRDW CV 14.40 %MPV 11.0 fLPLT [...] mg/dLCALCIUM 10.0 mg/dLeGFR 60 HGB A1C 8.60 %Est Avg Glucose [...] 2.29 #MONO 0.39 #EOS 0.22 #BASO 0.02 Hemoglobin A1c 10.40 %Estim. Avg Glu (eAG) 252 mg/dL 08/31/2015 2:45 PM WBC 9.9 RBC 4.88 HGB 13.80 g/dLHCT 42.20 %MCV 87.0 fLMCH 28.30 pgMCHC 32.70 g/dLRDW CV 13.70 %MPV 11.30 fLPLT 158 %NEUT 63.90 %%LYMP 26.40 %%MONO 7.20 %%EOS 2.30 %%BASO 0.20 %#NEUT 6.35 #LYMP 2.62 #MONO 0.72 #EOS 0.23 #BASO 0.02 GLUCOSE 132.0 mg/dLSODIUM 142.0 mmol/LPOTASSIUM 4.40 mmol/ LCHLORIDE 104.0 mmol/LCO2 27.0 mmol/LBUN 17.0 mg/dLCREATININE 0.90 mg/dLSGOT/ AST 20.0 IU/LSGPT/ALT 32.0 IU/LALK PHOS 63.0 IU/LTOTAL PROTEIN 6.60 g/dLALBUMIN 4.0 g/dLTOTAL BILI 0.30 mg/dLCALCIUM 8.90 mg/dLeGFR >60 mL/min/1.73m History Of Immunizations Not available. History of [...] of the foot Jan 21 2016 12:06PM Payers Insurance Name Company Name Plan Name Plan Number Policy Number Policy Group Number [id number]/A History of Encounters Visit Date Visit Type Provider 08/17/2015 Office visit Todd Topete MD 05/04/2015 Office visit Todd Topete MD 04/28/2015 [facility] Adeel Terrazas MD 04/20/2015 Office visit Todd [...] Topete MD 10/11/2013 Office visit Robson Samuel VEGETABLE TESTER 10/11/2013 [facility] Adeel Terrazas MD 08/28/2013 Office visit Robson Samuel VEGETABLE TESTER 07/17/2013 Office visit SHRUTI PEREZ 02/07/2013 Office [...] Todd Topete MD 08/17/2009 Office visit Todd Tpoete MD 07/06/2009 Office visit Todd Topete MD 05/21/2009 Office visit Todd Topete MD 05/15/2009 Laboratory Elijah Marie MD 05/14/2009 Laboratory Elijah Marie MD 05/14/2009 Laboratory Elijah Marie MD 05/14/2009 Hospital Elijah Marie MD
--- OUTSIDE RECORDS SUMMARY | 2018-06-05 14:22 | XMS REPORT ---
Author Author Todd Topete [facility] Address [address] [place], [place] [id number] Care Team Providers Care Museum Docent Name Role Phone Todd Topete PCP Unavailable [...] subcutaneous insulin pen 04/24/2014 08/04/2014 50 units [facility] Farxiga 10 mg oral tablet 08/19/2014 02/16/2015 [...] Reviewed 07/17/2013 12:00 AM Rocephin 1 gram [facility]#5682-9628-95 Reviewed 08/28/2013 12:00 AM THER/PROPH/DIAG INJ SC/IM Reviewed 08/28/2013 12:00 AM Decadron, Per 1 Mg [facility]# [address]-42 Reviewed 08/28/2013 12:00 AM Depo-Medrol, Per 80 Mg [facility]#8998-8658-74 Reviewed 10/11/2013 12:00 AM ELECTROCARDIOGRAM COMPLETE Reviewed [...] Reviewed 04/24/2014 12:00 AM Rocephin 1 gram [facility]#8879-8503-50 Reviewed 04/24/2014 12:00 AM URINALYSIS Reviewed 05/13/2014 [...] 2015 3:14PM Palpitations Apr 28 2015 2:50PM Payers Insurance Name Company Name Plan Name Plan Number Policy Number Policy Group Number [id number] N/A History of Encounters Visit Date Visit Type Provider 04/20/2015 Office visit Todd Topete MD 02/16/2015 Office visit Robson Samuel DIRECTOR OF OPERATIONS HOME HEALTH 11/24/2014 Office visit Robson Samuel DIRECTOR OF OPERATIONS HOME HEALTH 06/10/2014 Office visit Liss Kirk MD 05/13/2014 [...] 01/22/2014 Procedures Simon Wills MD 01/15/2014 Procedures Simno Wills MD 01/08/2014 Procedures Simon Wills MD 12/25/2013 Procedures Simon Wills MD 12/11/2013 Hospital Adeel Terrazas MD 10/24/2013 Office visit Todd Topete MD 10/11/2013 Office visit Robson Samuel APRN 10/11/2013 Hospital Adeel Terrazas MD 08/28/2013 Office visit [...]
--- OUTSIDE RECORDS SUMMARY | 2018-06-05 14:22 | XMS REPORT ---
Author Author Todd Topete [facility] Address [address] [place], [place] [id number] Care Team Providers Care Patent Prosecution Attorney Name Role Phone Todd Topete PCP Unavailable [...] subcutaneous insulin pen 08/17/2015 75 units daily Percocet 10-325 mg oral tablet 08/17/2015 take 1 tablet by oral route every [...] subcutaneous insulin pen 04/24/2014 08/04/2014 50 units [facility] Farxiga 10 mg oral tablet 08/19/2014 02/16/2015 [...] HC BMI BSA BMI Percentile O2 Sat(%) 08/17/2015 3:50:00 PM 134 mmHg 86 mmHg 89 bpm 20 rpm 99 F 402 lbs 76 in 48.93 kg/m2 3.13 m2 95 % 05/04/2015 3:34:00 PM 154 mmHg 76 mmHg 94 bpm 18 rpm 98.5 F 395 lbs 76 in 48.0804 kg/m 3.0996 m 04/20/2015 3:13:00 PM 140 mmHg 86 mmHg 99 bpm 18 rpm 98.6 F 396.5 lbs 76 in 48.26 kg/m2 3.11 m2 94 % 02/16/2015 3:42:00 PM [...] 07/17/2013 12:00 AM Rocephin 1 gram [facility]#8620-3759-75 Reviewed 08/28/2013 12:00 AM THER/PROPH/DIAG INJ SC/IM Reviewed 08/28/2013 12:00 AM Decadron, Per 1 Mg [facility]# [id number] Reviewed 08/28/2013 12:00 AM Depo-Medrol, Per 80 Mg [facility]#6513-8624-06 Reviewed 10/11/2013 12:00 AM ELECTROCARDIOGRAM COMPLETE Reviewed [...] 04/24/2014 12:00 AM Rocephin 1 gram [facility]#3936-7688-79 Reviewed 04/24/2014 12:00 AM URINALYSIS Reviewed 05/13/2014 [...] Mellitus, Type II Aug 17 2015 3:52PM Payers Insurance Name Company Name Plan Name Plan Number Policy Number Policy Group Number Start Date [employer] [facility] [id number] N/A History of Encounters Visit Date Visit Type Provider 08/17/2015 Office visit Todd Topete MD 05/04/2015 Office visit Todd Topete MD 04/28/2015 Hospital Adeel Terrazas MD 04/20/2015 Office visit Todd Topete MD 02/16/2015 Office visit Robson Samuel [employer] 11/24/2014 Office visit Robson Samuel SHARE HOLDER 06/10/2014 Office visit Liss Kirk MD 05/13/2014 [...] MD 12/25/2013 Procedures Simon Wills MD 12/11/2013 [facility] Adeel Terrazas MD 10/24/2013 Office visit Todd Topete MD 10/11/2013 Office visit Robson Samuel APRN 10/11/2013 [facility] Adeel Terrazas MD 08/28/2013 Office visit Robson [...] MD 05/14/2009 Laboratory Elijah Marie MD 05/14/2009 [facility] Elijah Marie MD
--- OUTSIDE RECORDS SUMMARY | 2018-06-05 14:23 | XMS REPORT ---
Author Author Todd Topete [facility] Address [address] [place], [place] [id number] Care Team Providers Care Nurse Researcher Name Role Phone Todd Topete PCP Unavailable [...] subcutaneous insulin pen 04/20/2015 70 units daily Bystolic 5 mg oral tablet 05/04/2015 06/01/2015 take 1 tablet (5 mg) by oral route once daily for 28 days Name Start Date Expiration Date SIG [...] subcutaneous insulin pen 04/24/2014 08/04/2014 50 units [facility] Farxiga 10 mg oral tablet 08/19/2014 02/16/2015 [...] HC BMI BSA BMI Percentile O2 Sat(%) 05/04/2015 3:34:00 PM 154 mmHg 76 mmHg [...] Reviewed 07/17/2013 12:00 AM Rocephin 1 gram [facility]#9509-7118-88 Reviewed 08/28/2013 12:00 AM THER/PROPH/DIAG INJ SC/IM Reviewed 08/28/2013 12:00 AM Decadron, Per 1 Mg [facility]# [address]-28 Reviewed 08/28/2013 12:00 AM Depo-Medrol, Per 80 Mg [facility]#7775-3523-57 Reviewed 10/11/2013 12:00 AM ELECTROCARDIOGRAM COMPLETE Reviewed [...] Reviewed 04/24/2014 12:00 AM Rocephin 1 gram [facility]#5838-8680-28 Reviewed 04/24/2014 12:00 AM URINALYSIS Reviewed 05/13/2014 [...] 2015 3:37PM Palpitation May 04 2015 3:37PM Payers Insurance Name Company Name Plan Name Plan Number Policy Number Policy Group Number Start Date [facility] [id number] N/A History of Encounters Visit Date Visit Type Provider 05/04/2015 Office visit Todd Topete MD 04/20/2015 Office visit Todd Topete MD [...]
--- OUTSIDE RECORDS SUMMARY | 2018-06-05 14:24 | XMS REPORT ---
Author Author Flori George [facility] Address [address] [facility] [address] [place], [place] [id number] Care Team Providers Care Match Up Worker Name Role Phone Flori George PCP Unavailable Todd Topete PreferredProvider Unavailable Allergies and Adverse Reactions Name Reaction Notes NO KNOWN DRUG ALLERGIES Plan of Treatment Planned Activity Comments Planned Date Planned Time Plan/Goal EKG (12-lead electrocardiogram) 04/28/2015 12:00 AM CBC With Auto Differential 02/16/2016 12:00 AM CMP 02/16/2016 12:00 AM Hemoglobin A1C 02/16/2016 12:00 AM Lipid Profile 12/22/2011 12:00 AM [facility] 02/07/2014 12:00 AM Urine culture and sensitivity [...] oral route every 6 hours as needed benzonatate 100 mg oral capsule 11/06/2016 take 1 capsule (100 mg) by oral route 3 times per day Name Start Date Expiration Date SIG Comments [...] same time each day for 14 days Augmentin 875-125 mg oral tablet 05/18/2016 05/25/2016 take 1 tablet by oral route every 12 hours for 7 days amoxicillin 500 mg oral capsule 11/06/2016 11/16/2016 take 1 capsule (500 mg) by oral route 3 times per day for 10 days Discontinued Name Start Date Discontinued Date [...] subcutaneous insulin pen 04/24/2014 08/04/[address] [facility] Farxiga 10 mg oral tablet 08/19/2014 [...] HC BMI BSA BMI Percentile O2 Sat(%) 11/06/2016 1:46:00 PM 162 mmHg 84 mmHg 98 bpm 24 rpm 100.6 F 406.375 lbs 76 in 49.47 kg/m2 3.14 m2 93 % 02/16/2016 1:23:00 PM 152 mmHg 92 mmHg 84 bpm 19 rpm 97.6 F 381.6 lbs 76 in 46.4493 kg/m 3.0466 m 96 % 01/15/2016 9:14:00 AM 157 mmHg [...] 08/17/2009 12:00 AM GLYCOSYLATED HEMOGLOBIN TEST Reviewed 05/18/2016 12:00 AM CULTURE OTHR SPECIMN AEROBIC Returned 12/22/2011 12:00 AM COMPLETE CBC W/AUTO DIFF WBC Reviewed 12/22/2011 12:00 AM GLYCOSYLATED HEMOGLOBIN TEST Reviewed 12/22/2011 12:00 AM COMPREHEN METABOLIC PANEL Reviewed 11/06/2016 12:00 AM THER/PROPH/DIAG INJ SC/IM Reviewed 11/06/2016 12:00 AM Decadron 8mg Injection Reviewed 11/06/2016 12:00 AM Depo-Medrol 80mg Injection Reviewed 02/07/2013 12:00 AM COMPLETE CBC W/AUTO DIFF WBC Reviewed 02/07/2013 12:00 AM COMPREHEN METABOLIC PANEL Reviewed 02/07/2013 12:00 AM GLYCOSYLATED HEMOGLOBIN TEST Reviewed 02/07/2013 12:00 AM RHEUMATOID FACTOR TEST QUAL Reviewed 07/17/2013 12:00 AM Wound Care Consult Reviewed 07/17/2013 12:00 AM Rocephin 1 gram [facility]#3232-4748-44 Reviewed 08/28/2013 12:00 AM THER/PROPH/DIAG INJ SC/IM Reviewed 08/28/2013 12:00 AM Decadron, Per 1 Mg [facility]# [address]-59 Reviewed 08/28/2013 12:00 AM Depo-Medrol, Per 80 Mg [facility]#4127-7772-32 Reviewed 10/11/2013 12:00 AM ELECTROCARDIOGRAM COMPLETE Reviewed 10/11/2013 12:00 AM ECG MONIT/REPRT UP TO 48 HRS Reviewed 10/11/2013 12:00 AM COMPLETE CBC W/AUTO DIFF WBC Reviewed 10/11/2013 12:00 AM COMPREHEN METABOLIC PANEL Reviewed 10/11/2013 12:00 AM ASSAY OF TROPONIN QUANT Reviewed 10/18/2013 12:00 AM GLYCOSYLATED HEMOGLOBIN TEST Reviewed 03/02/2010 12:00 AM COMPLETE CBC W/AUTO DIFF [...] Reviewed 04/24/2014 12:00 AM Rocephin 1 gram [facility]#4194-5913-00 Reviewed 04/24/2014 12:00 AM URINALYSIS Reviewed 05/13/2014 12:[address] ABDOMEN W/O DYE Reviewed 06/10/2014 10:59 AM URINALYSIS AUTO W/SCOPE Reviewed 06/10/2014 10:59 AM URINALYSIS AUTO W/O SCOPE Reviewed 06/10/2014 10:59 AM URINALYSIS NONAUTO W/SCOPE Reviewed 06/10/2014 10:59 AM URINALYSIS AUTO W/O SCOPE Reviewed 06/10/2014 10:59 AM TEST FOR ACETONE/KETONES Reviewed 06/10/2014 10:59 AM URINALYSIS AUTO W/O SCOPE Reviewed Results Summary Date and Description Results 03/02/2010 8:39 AM C [...] 13.80 g/dLHCT 42.20 %MCV 87.0 fLMCH 28.30 [facility] 32.[facility] g/dLRDW SD 43 RDW CV 13.70 [...] METATARSAL HEAD SPECIMEN SOURCE: 1ST METATARSAL HEAD 05/18/2016 2:23 PM SPECIMEN SOURCE: SCROTAL ABSCESS History Of Immunizations Not available. History of [...] 1:27PM Scrotal abscess May 18 2016 2:07PM Acute non-recurrent frontal sinusitis Nov 06 2016 1:48PM Vomiting Nov 06 2016 1:48PM Payers Insurance Name Company Name Plan Name Plan Number Policy Number Policy Group Number [id number]/A History of Encounters Visit Date Visit Type Provider 11/06/2016 Office visit Flori George NAIL GALVANIZER 05/18/2016 Procedures Simon Wills MD 02/16/2016 Office visit Todd Topete MD 01/22/2016 Hospital Simon Wills MD 08/17/2015 Office visit Todd Topete MD 05/04/2015 Office visit Todd Topete MD 04/28/2015 [facility] Adeel Terrazas MD 04/20/2015 Office visit Todd Topete MD 02/16/2015 Office visit Robson Samuel NAIL GALVANIZER 11/24/2014 Office visit Robson Samuel APRN 06/10/2014 [...] MD 05/14/2009 Laboratory Elijah Marie MD 05/14/2009 [facility] Elijah Marie MD
--- OUTSIDE RECORDS SUMMARY | 2018-06-05 14:28 | XMS REPORT ---
Author Author Todd Topete [facility] Address [address] [facility] [address] [place], [place] [phone] Care Team Providers Care Printed Circuit Boards Laminator Name Role Phone Todd Topete PCP Unavailable Allergies and Adverse Reactions Name Reaction Notes NO KNOWN DRUG ALLERGIES Plan of Treatment Planned Activity Comments Planned Date Planned Time Plan/Goal ELECTROCARDIOGRAM COMPLETE 04/28/2015 12:00 AM COMPLETE CBC W/AUTO DIFF WBC 02/16/2016 12:00 AM COMPREHEN METABOLIC PANEL 02/16/2016 12:00 AM GLYCOSYLATED HEMOGLOBIN TEST 02/16/2016 12:00 AM LIPID PANEL 12/22/2011 12:00 AM [...] oral route every 6 hours as needed lisinopril 5 mg oral tablet 02/16/2016 02/10/2017 take 1 tablet (5 mg) by oral route once daily for 30 days Trintellix 10 mg oral tablet 02/16/2016 03/01/2016 take 1 tablet (10 mg) by oral route once daily at the same time each day for 14 days Name Start Date Expiration Date SIG [...] insulin pen 04/24/2014 08/04/[address] [facility] Farxiga 10 mg oral tablet 08/19/2014 [...] Reviewed 07/17/2013 12:00 AM Rocephin 1 gram [facility]#0227-3305-69 Reviewed 08/28/2013 12:00 AM THER/PROPH/DIAG INJ SC/IM Reviewed 08/28/2013 12:00 AM Decadron, Per 1 Mg [facility]# [address]-26 Reviewed 08/28/2013 12:00 AM Depo-Medrol, Per 80 Mg [facility]#3478-5709-33 Reviewed 10/11/2013 12:00 AM ELECTROCARDIOGRAM COMPLETE Reviewed [...] Reviewed 04/24/2014 12:00 AM Rocephin 1 gram [facility]#1485-3492-18 Reviewed 04/24/2014 12:00 AM URINALYSIS Reviewed 05/13/2014 [...] 2016 1:27PM Depression Feb 16 2016 1:27PM Payers Insurance Name Company Name Plan Name Plan Number Policy Number Policy Group Number Start Date [employer] [id number] N/A History of Encounters Visit Date Visit Type Provider 02/16/2016 Office visit Todd Topete MD 01/22/2016 [facility] Simon Wills MD 08/17/2015 Office visit Todd Topete MD 05/04/2015 Office visit Todd Topete MD 04/28/2015 [facility] Adeel Terrazas MD 04/20/2015 Office visit Todd Topete MD 02/16/2015 Office visit Robson Samuel BLIND TEACHER 11/24/2014 Office visit Robson Samuel APRN 06/10/2014 [...] MD 12/25/2013 Procedures Simon Wills MD 12/11/2013 [facility] Adeel Terrazas MD 10/24/2013 Office visit Todd Topete MD 10/11/2013 Office visit Robson Samuel APRN 10/11/2013 [facility] Adeel Terrazas MD 08/28/2013 Office [...] MD 05/14/2009 Laboratory Elijah Marie MD 05/14/2009 [facility] Elijah Marie MD
--- OUTSIDE RECORDS SUMMARY | 2018-06-05 14:28 | XMS REPORT | Clinical Summary ---
Author Author Admin, SHELLIE Organization [facility] [place] Address Unknown Phone Unavailable Allergies, Adverse Reactions, Alerts Allergy Name Reaction Description Start Date Severity Status Provider No Known Allergies Valery Elder Conditions or Problems Problem Name Problem Code Onset Date Status Entry Date Provider Comment Standard Description Annotate Scrotal Abscess-Cellulitis 608.4 Active Rajinder Brown MD Other inflammatory disorders of male genital organs Medication List Medication Instructions Start Date Stop Date Generic Name NDC Status Provider Patient Instruction LASIX 40 MG ORAL TABLET 1 tablet by mouth daily FUROSEMIDE 42477417279 Active Rajinder Brown MD Active NYSTATIN 960775 UNIT/GM EXTERNAL CREAM Apply to rash 2-3 times a day and may repeat as needed NYSTATIN 50106295447 Active Rajinder Brown MD Active FLONASE 50 MCG/ACT NASAL SUSPENSION 1 spray each nostril twice daily for allergies and runny nose FLUTICASONE PROPIONATE 64607797807 Active Rajinder Brown MD Active VIIBRYD 20 MG ORAL TABLET 1 tab by mouth daily VILAZODONE HCL 34851267501 Active Rajinder Brown MD Active IBUPROFEN 200 MG ORAL TABLET 2 tabs by mouth every 6 hours prn IBUPROFEN 07588102628 Active Rajinder Brown MD Active LISINOPRIL 40 MG ORAL TABLET 1 po qd LISINOPRIL 01692283696 Active Rajinder Brown MD Active TOUJEO SOLOSTAR 300 UNIT/ML SUBCUTANEOUS SOLUTION PEN-INJECTOR 75 units at night INSULIN GLARGINE 22266999656 Chad Brown MD Active PERCOCET 10-325 MG ORAL TABLET 1 tablet every 6 hours as needed for pain 2017 OXYCODONE-ACETAMINOPHEN 12334419003 Active Rajinder Brown MD Active NOVOLOG 100 UNIT/ML SUBCUTANEOUS SOLUTION 50 units before every meal INSULIN ASPART 92740127881 Active Rajinder Brown MD Active BYDUREON 2 MG SUBCUTANEOUS PEN-INJECTOR 1 injection weekly EXENATIDE 63077649487 Active Rajinder Brown MD Active METFORMIN HCL 500 MG ORAL TABLET 1 tablet by mouth twice daily METFORMIN HCL 27334657610 Active Rajinder Brown MD Active ATORVASTATIN CALCIUM 10 MG ORAL TABLET 1 pill by mouth nightly, for cholesterol ATORVASTATIN CALCIUM 42323289955 Active Rajinder Brown MD Active MULTIVITAMINS ORAL CAPSULE 1 cap by mouth daily MULTIPLE VITAMIN 81120988733 Active Rajinder Brown MD Active DIFLUCAN 150 MG ORAL TABLET 1 tab by mouth for 5 days. FLUCONAZOLE 77883349846 No Longer Active Valery Ángel Active DIFLUCAN 150 MG ORAL TABLET 1 tab by mouth for 5 days. DIFLUCAN 150 MG ORAL TABLET 374988 FLUCONAZOLE Inactive Vital Signs Date Name Value Unit Range Description blood pressure, diastolic 83 mm[Hg] BP gonzalez blood pressure, systolic 142 mm[Hg] BP sys height E&M 74 [in_us] Bdy height pulse rate E&M 93 /min Heart rate temperature E&M 97.7 [degF] Body temperature weight E&M 432.3 [lb_av] Weight Measured Encounters Code Encounter Date Provider Facility [id number] Level 3 New Patient 13:16:49 [employer]ELTER [employer]PER[employer] FURNACE Rajinder Brown MD [facility]
--- OUTSIDE RECORDS SUMMARY | 2018-06-05 14:29 | XMS REPORT ---
Author Author CLAUDIA ARCHER [facility] Address [address] [place] [address] Care Team Providers Care Patternmaker Grader Name Role Phone CLAUDIA ARCHER Unavailable PROBLEMS Type Condition ICD9-CM Code SOG56-UH Code Onset Dates Condition Status SNOMED Code Problem Charcot foot due to diabetes mellitus E11.610 Active 11237611 Problem Depression, unspecified depression type F32.9 Active 19552798 Problem Neuropathy involving both lower extremities G57.93 Active 254550119 Problem BMI 40.0-44.9, adult Z68.41 Active 137240399 Problem Type 2 diabetes mellitus with hyperglycemia E11.65 Active 05299731 Problem longterm current use of insulin Z79.4 Active 613140381 Problem Essential hypertension I10 Active 90473479 Problem Morbid obesity due to excess calories E66.01 Active 337498343 ALLERGIES No Known Allergies ENCOUNTERS Encounter Location Date Diagnosis [facility] [employer] [address] [id number] [place] [address] May [facility] [place] [address] [facility] [id number] [place] [address] May, [facility] [address] [id number] [place] [address] May Cellulitis of right lower extremity L03.115 and BMI 50.0-59.9, adult Z68.43 [facility] [employer] [address] [id number] [place] [address] Apr [facility] Patel65100KS [place] [address] Apr Depression, unspecified depression type F32.9 ; BMI 50.0-59.9, adult Z68.43 and Encounter for immunization Z23 [facility] Patel65100KS [place] [address] Apr Charcot foot due to diabetes mellitus E11.610 [facility] [place] [address] [id number] [place] [address] Apr Type 2 diabetes mellitus with hyperglycemia E11.65 [facility] [place] [address] [id number] [place] [address] Mar [facility] [place] [address] [id number] [place] [address] Mar Depression, unspecified depression type F32.9 ; Neuropathy involving both lower extremities G57.93 and Diarrhea, unspecified type R19.7 [facility] [place] [address] [id number] [place] [address] Mar Charcot foot due to diabetes mellitus E11.610 [facility] [place] [address] [id number] [place] [address] Mar Type 2 diabetes mellitus with hyperglycemia E11.65 [facility] [place] [address] [id number] [place] [address] Feb Type 2 diabetes mellitus with hyperglycemia E11.65 ; Charcot foot due to diabetes mellitus E11.610 and BMI 50.0-59.9, adult Z68.43 [facility] [place] [address] [id number] [place] [address] Feb [facility] [address] [id number] [place] [address] Feb, [facility] [place] [address] [id number] [place] [address] Jan Depression, unspecified depression type F32.9 [facility] [place] [address] [id number] [place] [address] Jan Charcot foot due to diabetes mellitus E11.610 [facility] [address] [facility] [id number] [place] [address] Dec, [facility] [place] [address] [id number] [place] [address] Dec Charcot foot due to diabetes mellitus E11.610 [facility] [place] [address] [id number] [place] [address] Dec Neuropathy involving both lower extremities G57.93 [facility] [place] [address] [id number] [place] [address] Dec [facility] [place] [address] [id number] [place] [address] November [facility] [place] [address] [id number] [place] [address] November [facility] [place] [address] [id number] [place] [address] November [facility] [place] [address] [id number] [place] [address] November [facility] [place] [address] [id number] [place] [address] November Type 2 diabetes mellitus with hyperglycemia E11.65 ; longterm current use of insulin Z79.4 ; Morbid obesity due to excess calories E66.01 ; Charcot foot due to diabetes mellitus E11.610 ; Neuropathy involving both lower extremities G57.93 ; BMI 50.0-59.9, adult Z68.43 ; Depression, unspecified depression type F32.9 and Scrotal swelling N50.89 [facility] [place] [address] [id number] [place] [address] November [facility] [place] [address] [id number] [place] [address] Oct Charcot foot due to diabetes mellitus E11.610 [facility] [place] [address] [id number] [place] [address] Sep Type 2 diabetes mellitus with hyperglycemia E11.65 [facility] [place] [address] [id number] [place] [address] Sep Charcot foot due to diabetes mellitus E11.610 [facility] [place] [address] [id number] [place] [address] Sep [facility] [place] [address] [id number] [place] [address] Sep [facility] [place] [address] [id number] [place] [address] Sep Scrotal swelling N50.89 ; Fungal infection of the groin B35.6 and BMI 50.0-59.9, adult Z68.43 [facility] [place] [address] [id number] [place] [address] Sep Scrotal swelling N50.89 [facility] [place] [address] [id number] [place] [address] Sep Scrotal swelling N50.89 [facility] [place] [address] [id number] [place] [address] Aug Scrotal swelling N50.89 [facility] [place] [address] [id number] [place] [address] Aug Charcot foot due to diabetes mellitus E11.610 [facility] NGHIA [address] [id number] [place] [address] Aug Type 2 diabetes mellitus with hyperglycemia E11.65 ; longterm current use of insulin Z79.4 ; Morbid obesity due to excess calories E66.01 ; Charcot foot due to diabetes mellitus E11.610 ; Depression, unspecified depression type F32.9 and Essential hypertension I10 [address] [id number] [address] Aug, [facility] [place] [address] [id number] [place] [address] Aug Scrotal swelling N50.89 and Depression, unspecified depression type F32.9 [address] [id number] [address] Jul, [address] [address] Jul, [facility] [address] [id number] [place] [address] Jul, [facility] NGHIA [address] [id number] [place] [address] Jul Scrotal swelling N50.89 [facility] [place] [address] [id number] [place] [address] Jul [facility] [place] [address] [id number] [place] [address] Jul Scrotal swelling N50.89 [facility] [place] [address] [id number] [place] [address] Jul Charcot foot due to diabetes mellitus E11.610 [facility] [place] [address] [id number] [place] [address] Jul Depression, unspecified depression type F32.9 and BMI 50.0-59.9, adult Z68.43 [facility] [place] [address] [id number] [place] [address] Jun Depression, unspecified depression type F32.9 ; Charcot foot due to diabetes mellitus E11.610 and BMI 50.0-59.9, adult Z68.43 [facility] [place] [address] [id number] [place] [address] Jun [facility] [place] [address] [id number] [place] [address] 09 May BMI 40.0-44.9, adult Z68.41 ; Type 2 diabetes mellitus with hyperglycemia E11.65 ; Essential hypertension I10 ; Depression, unspecified depression type F32.9 ; Charcot foot due to diabetes mellitus E11.610 and longterm current use of insulin Z79.4 [facility] [place] [address] [id number] [place] [address] May [facility] [address] [id number] [place] [address] May [facility] [place] [address] [id number] [place] [address] May [facility] [place] [address] [id number] [place] [address] Apr [facility] [place] [address] [facility] [id number] [place] [address] Apr, [facility] [place] [address] [id number] [place] [address] Apr [facility] [place] [address] [id number] [place] [address] Apr Type 2 diabetes mellitus with hyperglycemia E11.65 and Depression, unspecified depression type F32.9 [facility] [place] [address] [id number] [place] [address] Apr Encounter for immunization Z23 ; Type 2 diabetes mellitus with hyperglycemia E11.65 ; long term care administrator current use of insulin Z79.4 ; Charcot foot due to diabetes mellitus E11.610 and Essential hypertension I10 [facility] [place] [address] [id number] [place] [address] Mar Essential hypertension I10 ; Charcot foot due to diabetes mellitus E11.610 and Type 2 diabetes mellitus with hyperglycemia E11.65 [facility] [place] [address] [id number] [place] [address] Mar [address] [address] [facility] [id number] [place] [address] Feb, [facility] [place] [address] [id number] [place] [address] Feb Type 2 diabetes mellitus with hyperglycemia E11.65 ; Essential hypertension I10 ; longterm current use of insulin Z79.4 ; Morbid obesity due to excess calories E66.01 ; Charcot foot due to diabetes mellitus E11.610 and Depression, unspecified depression type F32.9 [facility] [place] [address] [id number] [place] [address] Jan [facility]ENTERMeridea Financial SoftwareLuz [place] [address] [id number] [place] [address] Jan [facility] [place] [address] [id number] [place] [address] Jan [facility] [place] [address] [facility] [id number] [place] [address] Jan, [facility] [place] [address] [id number] [place] [address] Dec Charcot foot due to diabetes mellitus E11.610 [facility] [place] [address] [id number] [place] [address] November [facility] [place] [address] [id number] [place] [address] November Type 2 diabetes mellitus with hyperglycemia E11.65 ; long term care administrator current use of insulin Z79.4 and Charcot foot due to diabetes mellitus E11.610 [facility] [place] [address] [id number] [place] [address] November Bronchitis J40 [facility] [place] [address] [id number] [place] [address] Oct Cellulitis of right lower extremity L03.115 and Charcot foot due to diabetes mellitus E11.610 [facility] [place] [address] [id number] [place] [address] Sep [address] [facility] [id number] [place] [address] Sep, [facility] [place] [address] [id number] [place] [address] Sep Bronchitis J40 [facility] [address] [place] [address] AVE [id number] [place] [address] Sep, [facility] [place] [address] [id number] [place] [address] Sep Bronchitis J40 [facility] [place] [address] [id number] [place] [address] Sep Type 2 diabetes mellitus with hyperglycemia E11.65 [facility] [place] [address] [id number] [place] [address] Sep [address] [facility] [id number] [place] [address] Aug, [facility] [place] [address] [id number] [place] [address] Aug Type 2 diabetes mellitus with hyperglycemia E11.65 ; Depression, unspecified depression type F32.9 ; Charcot foot due to diabetes mellitus E11.610 and Encounter for immunization Z23 [facility] [place] [address] [id number] [place] [address] Aug [facility] [place] [id number] [place] [address] Jul Type 2 diabetes mellitus with hyperglycemia E11.65 ; longterm current use of insulin Z79.4 ; Morbid obesity due to excess calories E66.01 and Charcot foot due to diabetes mellitus E11.610 [facility] [place] [address] [id number] [place] [address] Jun Type 2 diabetes mellitus with hyperglycemia E11.65 ; longterm current use of insulin Z79.4 ; Morbid obesity due to excess calories E66.01 ; Charcot foot due to diabetes mellitus E11.610 and Encounter for immunization Z23 [address] [id number] [place] [address] Jun, [address] [address] [facility] [id number] [place] [address] Jun, [facility] [place] [address] [id number] [place] [address] Jun Fever in other diseases R50.81 [facility] [place] [address] [id number] [place] [address] May [facility] [place] [address] [id number] [place] [address] May [facility] [place] [address] [id number] [place] [address] May Type 2 diabetes mellitus with hyperglycemia E11.65 [facility] [place] [address] [id number] [place] [address] May Type 2 diabetes mellitus with hyperglycemia E11.65 ; longterm current use of insulin Z79.4 ; Morbid obesity due to excess calories E66.01 ; Charcot foot due to diabetes mellitus E11.610 and Depression, unspecified depression type F32.9 IMMUNIZATIONS No Known Immunizations SOCIAL HISTORY Never Assessed REASON FOR VISIT leg pain-Swelling, redness and pain in the right leg, states that it has become worse. RN PLAN OF CARE Activity Details Follow Up prn Reason: Pending Test CMP Pending Test CBC Pending Test CRP VITAL SIGNS Height 74 in 2018-05-16 Weight 453 lbs 2018-05-16 Temperature 100.7 degrees Fahrenheit 2018-05-16 Heart Rate 107 bpm 2018-05-16 Respiratory Rate 20 2018-05-16 Oximetry 97 % 2018-05-16 BMI 58.16 kg/m2 2018-05-16 Blood pressure systolic 160 mmHg 2018-05-16 Blood pressure diastolic 62 mmHg 2018-05-16 MEDICATIONS Medication Instructions Dosage Frequency Start Date End Date Duration Status Glucocard Expression Test - TEST BLOOD SUGAR FOUR TIMES DAILY 25 Active Wellbutrin XL 150 MG Orally Once a day 1 tablet in the morning 24h Mar, Active Toujeo SoloStar 300 UNIT/ML Subcutaneous Once a day 75 units 24h 90 days Active NovoLog 100 UNIT/ML Subcutaneous 3 times a day 50 unit at meals 8h 90 days Active Pen Hamlin 32G X 4 MM subcutaneously 3 times a day as directed 8h Sep, 90 days Active Lisinopril 40 MG TAKE 1 TABLET BY MOUTH ONCE DAILY 30 Active Atorvastatin Calcium 80 MG Orally Once a day 1/2 tablet 24h May, 90 days Active Viibryd 40 MG Orally Once a day 1 tablet with food 24h Jun, Active Multivitamin Men Orally PRN 1 tablet Active Glucocard Expression Monitor w/Device as directed Mar, Active Percocet 10-325 MG Orally every 6 hrs 1 tablet as needed 6h May, 28 days Active Lyrica 75 MG Orally Twice a day 1 capsule 12h Mar, 90 days Active MetFORMIN HCl ER 500 MG TAKE 2 TABLETS BY MOUTH TWICE DAILY 30 Active Ibuprofen 200 MG Orally PRN 4 tab Active Bydureon 2 MG Subcutaneous weekly 2 mg November, Active RESULTS No Results PROCEDURES Procedure Date Ordered Result Body Site COMPLETE CBC W/AUTO DIFF WBC May 16, 2018 COMPREHEN METABOLIC PANEL May 16, 2018 C-REACTIVE PROTEIN May 16, 2018 INSTRUCTIONS MEDICATIONS ADMINISTERED No Known Medications MEDICAL (GENERAL) HISTORY Type Description Date Medical History type II diabetes Medical History charcoat Medical History depression Medical History Diabetic ulcer on bottom of foot per wound care Surgical History lap angel Surgical History Lt knee scope Surgical History circumscison revision Surgical History Lt foot Hospitalization History surgeries
--- OUTSIDE RECORDS SUMMARY | 2018-06-05 14:29 | XMS REPORT ---
Author Author CLAUDIA ARCHER [facility] Address [address] [place] [address] Care Team Providers Care Financial Aid Advisor Name Role Phone CLAUDIA ARCHER Unavailable PROBLEMS Type Condition ICD9-CM Code ZSB96-PZ Code Onset Dates Condition Status SNOMED Code Problem Charcot foot due to diabetes mellitus E11.610 Active 06805848 Problem Depression, unspecified depression type F32.9 Active 28465724 Problem Neuropathy involving both lower extremities G57.93 Active 099154070 Problem BMI 40.0-44.9, adult Z68.41 Active 439854570 Problem Type 2 diabetes mellitus with hyperglycemia E11.65 Active 41786779 Problem retirement current use of insulin Z79.4 Active 621528555 Problem Essential hypertension I10 Active 96525770 Problem Morbid obesity due to excess calories E66.01 Active 515526408 ALLERGIES No Information ENCOUNTERS Encounter Location Date Diagnosis [facility] [email or web address] COMMERCVelvet PINO [id number] [place] [address] May [facility] [address] [facility] [id number] [place] [address] May, [facility] [address] [id number] [place] [address] May Cellulitis of right lower extremity L03.115 and BMI 50.0-59.9, adult Z68.43 [facility] [address] [id number] [place] [address] Apr [facility] [address] [id number] [place] [address] Apr Depression, unspecified depression type F32.9 ; BMI 50.0-59.9, adult Z68.43 and Encounter for immunization Z23 [facility] [address] [id number] [place] [address] Apr Charcot foot due to diabetes mellitus E11.610 [facility] [place] [address] [id number] [place] [address] Apr Type 2 diabetes mellitus with hyperglycemia E11.65 [facility] [place] [address] [id number] [place] [address] Mar [facility] [place] [address] [id number] [place] [address] Mar Depression, unspecified depression type F32.9 ; Neuropathy involving both lower extremities G57.93 and Diarrhea, unspecified type R19.7 [facility] [place] [address] [id number] [place] [address] Mar Charcot foot due to diabetes mellitus E11.610 [facility] [place] [address] [id number] [place] [address] Mar Type 2 diabetes mellitus with hyperglycemia E11.65 [facility] [place] [address] [id number] [place] [address] Feb Type 2 diabetes mellitus with hyperglycemia E11.65 ; Charcot foot due to diabetes mellitus E11.610 and BMI 50.0-59.9, adult Z68.43 [facility] [place] [address] [id number] [place] [address] Feb [facility] [place] [address] [id number] [place] [id number] Feb, [facility] [place] [address] [id number] [place] [address] Jan Depression, unspecified depression type F32.9 [facility] [place] [address] [id number] [place] [address] Jan Charcot foot due to diabetes mellitus E11.[address] [facility] [address] [facility] [id number] [place] [address] Dec, [facility] [place] [address] [id number] [place] [address] Dec Charcot foot due to diabetes mellitus E11.610 [facility] [place] [address] [id number] [place] [address] Dec Neuropathy involving both lower extremities G57.93 [facility] [place] [address] [id number] [place] [address] Dec [facility] [place] [address] [id number] [place] [address] November [facility] [place] [address] [id number] [place] [address] November [facility] [place] [address] [id number] [place] [address] November [facility] [place] [address] [id number] [place] [address] November [facility] [place] [address] [id number] [place] [address] November Type 2 diabetes mellitus with hyperglycemia E11.65 ; 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.4 ; Morbid obesity due to excess calories E66.01 ; Charcot foot due to diabetes mellitus E11.610 ; Neuropathy involving both lower extremities G57.93 ; BMI 50.0-59.9, adult Z68.43 ; Depression, unspecified depression type F32.9 and Scrotal swelling N50.89 [facility] [place] [address] [id number] [place] [address] November [facility] [place] [address] [id number] [place] [address] Oct Charcot foot due to diabetes mellitus E11.610 [facility] [place] [address] [id number] [place] [address] Sep Type 2 diabetes mellitus with hyperglycemia E11.65 [facility] [place] [address] [id number] [place] [address] Sep Charcot foot due to diabetes mellitus E11.610 [facility] [place] [address] [id number] [place] [address] Sep [facility] [place] [address] [id number] [place] [address] Sep [facility] [place] [address] [id number] [place] [address] Sep Scrotal swelling N50.89 ; Fungal infection of the groin B35.6 and BMI 50.0-59.9, adult Z68.43 [facility] [place] [address] [id number] [place] [address] Sep Scrotal swelling N50.89 [facility] [place] [address] [id number] [place] [address] Sep Scrotal swelling N50.89 [facility] [place] [address] [id number] [place] [address] Aug Scrotal swelling N50.89 [facility] [place] [address] [id number] [place] [address] Aug Charcot foot due to diabetes mellitus E11.610 [facility] [place] [address] [id number] [place] [address] Aug Type 2 diabetes mellitus with hyperglycemia E11.65 ; retirement current use of insulin Z79.4 ; Morbid obesity due to excess calories E66.01 ; Charcot foot due to diabetes mellitus E11.610 ; Depression, unspecified depression type F32.9 and Essential hypertension I10 [id number] [address] Aug, [facility] [place] [address] [id number] [place] [address] Aug Scrotal swelling N50.89 and Depression, unspecified depression type F32.9 [address] [place] [facility] [id number] [address] Jul, [address]005[address]100[place], [place] [address] Jul, [facility] [address] [id number] [place] [address] Jul, [facility] [place] [address] [id number] [place] [address] Jul Scrotal swelling N50.89 [facility] [place] [address] [id number] [place] [address] Jul [facility] [place] [address] [id number] [place] [address] Jul Scrotal swelling N50.89 [facility] [place] [address] [id number] [place] [address] Jul Charcot foot due to diabetes mellitus E11.610 [facility] [place] [address] [id number] [place] [address] Jul Depression, unspecified depression type F32.9 and BMI 50.0-59.9, adult Z68.43 [facility] [place] [address] [id number] [place] [address] Jun Depression, unspecified depression type F32.9 ; Charcot foot due to diabetes mellitus E11.610 and BMI 50.0-59.9, adult Z68.43 [facility] [place] [address] [id number] [place] [address] Jun [facility] [place] [address] [id number] [place] [address] 09 May BMI 40.0-44.9, adult Z68.41 ; Type 2 diabetes mellitus with hyperglycemia E11.65 ; Essential hypertension I10 ; Depression, unspecified depression type F32.9 ; Charcot foot due to diabetes mellitus E11.610 and 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.4 [facility] [place] [address] [id number] [place] [address] May [facility] [place] [address] [id number] [place] [address] May [facility] [place] [address] [id number] [place] [address] May [facility] [place] [address] [id number] [place] [address] Apr [facility] [address] [facility] [id number] [place] [address] Apr, [facility] [place] [address] [id number] [place] [address] Apr [facility] [place] [address] [id number] [place] [address] Apr Type 2 diabetes mellitus with hyperglycemia E11.65 and Depression, unspecified depression type F32.9 [facility] [place] [address] [id number] [place] [address] Apr Encounter for immunization Z23 ; Type 2 diabetes mellitus with hyperglycemia E11.65 ; retirement current use of insulin Z79.4 ; Charcot foot due to diabetes mellitus E11.610 and Essential hypertension I10 [facility] [place] [address] [id number] [place] [address] Mar Essential hypertension I10 ; Charcot foot due to diabetes mellitus E11.610 and Type 2 diabetes mellitus with hyperglycemia E11.65 [facility] [place] [address] [id number] [place] [address] Mar [facility] [address] [facility] [id number] [place] [address] Feb, [facility] [place] [address] [id number] [place] [address] Feb Type 2 diabetes mellitus with hyperglycemia E11.65 ; Essential hypertension I10 ; 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.4 ; Morbid obesity due to excess calories E66.01 ; Charcot foot due to diabetes mellitus E11.610 and Depression, unspecified depression type F32.9 [facility] [place] [address] [id number] [place] [address] Jan [facility] [place] [address] [id number] [place] [address] Jan [facility] [place] [address] [id number] [place] [address] Jan [facility] [address] [facility] [id number] [place] [address] Jan, [facility] [place] [address] [id number] [place] [address] Dec Charcot foot due to diabetes mellitus E11.610 [facility] [place] [address] [id number] [place] [address] November [facility] [place] [address] [id number] [place] [address] November Type 2 diabetes mellitus with hyperglycemia E11.65 ; retirement current use of insulin Z79.4 and Charcot foot due to diabetes mellitus E11.610 [facility] [place] [address] [id number] [place] [address] November Bronchitis J40 [facility] [place] [address] [id number] [place] [address] Oct Cellulitis of right lower extremity L03.115 and Charcot foot due to diabetes mellitus E11.610 [facility] [place] [address] [id number] [place] [address] [address] [facility] [id number] [place] [address] Sep, [facility] [place] [address] [id number] [place] [address] Sep Bronchitis J40 [facility] [place] [address] [id number] [place] [address] Sep, [facility] [place] [address] [id number] [place] [address] Sep Bronchitis J40 [facility] [place] [address] [id number] [place] [address] Sep Type 2 diabetes mellitus with hyperglycemia E11.65 [facility] [place] [address] [id number] [place] [address] Sep [address] [facility] [id number] [place] [address] Aug, [facility] [place] [address] [id number] [place] [address] Aug Type 2 diabetes mellitus with hyperglycemia E11.65 ; Depression, unspecified depression type F32.9 ; Charcot foot due to diabetes mellitus E11.610 and Encounter for immunization Z23 [facility] [place] [address] [id number] [place] [address] Aug [facility] [place] [id number] [place] [address] Jul Type 2 diabetes mellitus with hyperglycemia E11.65 ; 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.4 ; Morbid obesity due to excess calories E66.01 and Charcot foot due to diabetes mellitus E11.610 [facility] [place] [address] [id number] [place] [address] Jun Type 2 diabetes mellitus with hyperglycemia E11.65 ; retirement current use of insulin Z79.4 ; Morbid obesity due to excess calories E66.01 ; Charcot foot due to diabetes mellitus E11.610 and Encounter for immunization Z23 [address] [id number] [place] [address] Jun, [address] [place] [facility] [id number] [place] [address] Jun, [facility] [place] [address] [id number] [place] [address] Jun Fever in other diseases R50.81 [facility] [place] [address] [id number] [place] [address] [facility] [place] [address] [id number] [place] [address] [facility] [place] [address] [id number] [place] [address] May Type 2 diabetes mellitus with hyperglycemia E11.65 [facility] [place] [address] [id number] [place] [address] May Type 2 diabetes mellitus with hyperglycemia E11.65 ; retirement current use of insulin Z79.4 ; Morbid obesity due to excess calories E66.01 ; Charcot foot due to diabetes mellitus E11.610 and Depression, unspecified depression type F32.9 IMMUNIZATIONS No Known Immunizations SOCIAL HISTORY Never Assessed REASON FOR VISIT Critical Lab Results PLAN OF CARE VITAL SIGNS MEDICATIONS Unknown Medications RESULTS No Results PROCEDURES No Known procedures INSTRUCTIONS MEDICATIONS ADMINISTERED No Known Medications MEDICAL (GENERAL) HISTORY Type Description Date Medical History type II diabetes Medical History charcoat Medical History depression Medical History Diabetic ulcer on bottom of foot per wound care Surgical History lap angel Surgical History Lt knee scope Surgical History circumscison revision Surgical History Lt foot Hospitalization History surgeries
--- OUTSIDE RECORDS SUMMARY | 2018-06-05 14:29 | XMS REPORT ---
Author Author CLAUDIA ARCHER [facility] Address [address] [place] [address] Care Team Providers Care Digital Engineer Name Role Phone CLAUDIA ARCHER Unavailable PROBLEMS Type Condition ICD9-CM Code XZO41-KQ Code Onset Dates Condition Status SNOMED Code Problem Charcot foot due to diabetes mellitus E11.610 Active 57606065 Problem Depression, unspecified depression type F32.9 Active 47590892 Problem Neuropathy involving both lower extremities G57.93 Active 041320827 Problem BMI 40.0-44.9, adult Z68.41 Active 764400640 Problem Type 2 diabetes mellitus with hyperglycemia E11.65 Active 65880920 Problem senior care current use of insulin Z79.4 Active 925732070 Problem Essential hypertension I10 Active 97601925 Problem Morbid obesity due to excess calories E66.01 Active [id number] ALLERGIES No Information ENCOUNTERS Encounter Location Date Diagnosis [facility] [address] [id number] [place] [address] [facility] [address] [id number] [place] [address] May [facility] [address] [facility]NOTE 3] [id number] [place] [address] [address], [address] [facility]ITALBioStratumAGRAWALMANPREET [address] [id number] [place] [address] May Cellulitis of right lower extremity L03.115 and BMI 50.0-59.9, adult Z68.43 [facility] [address] [id number] [place] [address] [facility]ITALOrthomim[facility] NGHIA [id number] [place] [address] 18 Apr Depression, unspecified depression type F32.9 ; BMI 50.0-59.9, adult Z68.43 and Encounter for immunization Z23 [facility] [address] [id number] [place] [address] Apr Charcot foot due to diabetes mellitus E11.610 [facility] [address] [id number] [place] [address] Apr Type 2 diabetes mellitus with hyperglycemia E11.65 [facility] [address] [id number] [place] [address] Mar [facility] [address] [id number] [place] [address] Mar Depression, unspecified depression type F32.9 ; Neuropathy involving both lower extremities G57.93 and Diarrhea, unspecified type R19.7 [facility] [address] [id number] [place] [address] Mar Charcot foot due to diabetes mellitus E11.610 [facility] [address] [id number] [place] [address] Mar Type 2 diabetes mellitus with hyperglycemia E11.65 [facility] [address] [id number] [place] [address] Feb Type 2 diabetes mellitus with hyperglycemia E11.65 ; Charcot foot due to diabetes mellitus E11.610 and BMI 50.0-59.9, adult Z68.43 [facility] [address] [id number] [place] [address] [facility] [place] [address] [facility] [id number] [place] [id number] Feb, [facility] [address] [id number] [place] [address] Jan Depression, unspecified depression type F32.9 [facility] [address] [id number] [place] [address] Jan Charcot foot due to diabetes mellitus E11.[address] [facility]ITALK [facility] [address] [facility]NOTE 3] [id number] [place] [address] Dec, [facility]ITALInterExK [facility] [address] [id number] [place] [address] Dec Charcot foot due to diabetes mellitus E11.610 [facility] [address] [id number] [place] [address] Dec Neuropathy involving both lower extremities G57.93 [facility] [address] [id number] [place] [address] Dec [facility] [address] [id number] [place] [address] November [facility] [address] [id number] [place] [address] November [facility] [address] [id number] [place] [address] November [facility] [address] [id number] [place] [address] November [facility] [address] [id number] [place] [address] November Type 2 diabetes mellitus with hyperglycemia E11.65 ; 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.4 ; Morbid obesity due to excess calories E66.01 ; Charcot foot due to diabetes mellitus E11.610 ; Neuropathy involving both lower extremities G57.93 ; BMI 50.0-59.9, adult Z68.43 ; Depression, unspecified depression type F32.9 and Scrotal swelling N50.89 [facility] [address] [id number] [place] [address] November [facility] [address] [id number] [place] [address] Oct Charcot foot due to diabetes mellitus E11.610 [facility] [address] [id number] [place] [address] Sep Type 2 diabetes mellitus with hyperglycemia E11.65 [facility] [address] [id number] [place] [address] Sep Charcot foot due to diabetes mellitus E11.610 [facility] [address] [id number] [place] [address] Sep [facility] [address] [id number] [place] [address] [facility] [address] [id number] [place] [address] Sep Scrotal swelling N50.89 ; Fungal infection of the groin B35.6 and BMI 50.0-59.9, adult Z68.[address] [facility] [address] [id number] [place] [address] Sep Scrotal swelling N50.[address] [facility] [address] [id number] [place] [address] Sep Scrotal swelling N50.[address] [facility] [address] [id number] [place] [address] Aug Scrotal swelling N50.[address] [facility] [address] [id number] [place] [address] 14 Aug Charcot foot due to diabetes mellitus E11.[address] 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 [facility] [place] [address] [id number] [place] [address] Aug Scrotal swelling N50.89 and Depression, unspecified depression type F32.9 [place] [address] [id number], [place] [address] Jul, [place] [address] [id number], [place] [address] Jul, [address] [id number] [place] [id number] Jul, [facility] AGRAW[facility] [address] [id number] [place] [address] Jul Scrotal swelling N50.[address] [facility] [address] [id number] [place] [address] [facility] [address] [id number] [place] [address] Jul Scrotal swelling N50.[address] [facility] [address] [id number] [place] [address] Jul Charcot foot due to diabetes mellitus E11.[address] [facility] [address] [id number] [place] [address] Jul Depression, unspecified depression type F32.9 and BMI 50.0-59.9, adult Z68.[address] [facility] [address] [id number] [place] [address] Jun Depression, unspecified depression type F32.9 ; Charcot foot due to diabetes mellitus E11.610 and BMI 50.0-59.9, adult Z68.[address] [facility] [address] [id number] [place] [address] 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 [facility] [address] [id number] [place] [address] [facility] [address] [id number] [place] [address] [facility] [facility] [address] [id number] [place] [address] [facility] [address] [facility] [address] [id number] [place] [address] Apr [facility] [address] [facility]NOTE 3] [id number] [place] [address] [address], [address] [facility] [place] [address] [id number] [place] [address] [facility] [place] [address] [id number] [place] [address] Apr Type 2 diabetes mellitus with hyperglycemia E11.65 and Depression, unspecified depression type F32.9 [facility] AGRAW[facility] [address] [id number] [place] [address] Apr Encounter for immunization Z23 ; Type 2 diabetes mellitus with hyperglycemia E11.65 ; senior care current use of insulin Z79.4 ; Charcot foot due to diabetes mellitus E11.610 and Essential hypertension I[address] [facility] [place] [address] [id number] [place] [address] Mar Essential hypertension I10 ; Charcot foot due to diabetes mellitus E11.610 and Type 2 diabetes mellitus with hyperglycemia E11.[address] [facility] [place] [address] [id number] [place] [address] Mar [place] [address] [facility]NOTE 3] [id number] [place] [address] [address] Feb, [address] [facility] [place] [address] [id number] [place] [address] Feb Type 2 diabetes mellitus with hyperglycemia E11.65 ; Essential hypertension I10 ; senior care current use of insulin Z79.4 ; Morbid obesity due to excess calories E66.01 ; Charcot foot due to diabetes mellitus E11.610 and Depression, unspecified depression type F32.[address] [facility] [place] [address] [id number] [place] [address] [facility] [place] [address] [id number] [place] [address] [facility] [address] [id number] [place] [address] Jan [facility] [address] [facility]NOTE 3] [id number] [place] [address] Jan, [facility] [address] [id number] [place] [address] Dec Charcot foot due to diabetes mellitus E11.610 [facility] [address] [id number] [place] [address] November [facility] [address] [id number] [place] [address] November Type 2 diabetes mellitus with hyperglycemia E11.65 ; 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.4 and Charcot foot due to diabetes mellitus E11.610 [facility] [address] [id number] [place] [address] November Bronchitis J40 [facility] [address] [id number] [place] [address] Oct Cellulitis of right lower extremity L03.115 and Charcot foot due to diabetes mellitus E11.610 [facility] [place] [address] [id number] [place] [address] Sep [facility] [address] [facility]NOTE 3] [id number] [place] [address] Sep, [facility] [address] [id number] [place] [address] Sep [address]chitis J[address] [facility] [facility] [address] [id number] [place] [address] Sep, [facility] [address] [id number] [place] [address] Sep Bronchitis J40 [facility] [address] [id number] [place] [address] Sep Type 2 diabetes mellitus with hyperglycemia E11.65 [facility] [address] [id number] [place] [address] Sep [facility] [address] [facility]NOTE 3] [id number] [place] [address] Aug, [facility] [place] [address] [id number] [place] [address] Aug Type 2 diabetes mellitus with hyperglycemia E11.65 ; Depression, unspecified depression type F32.9 ; Charcot foot due to diabetes mellitus E11.610 and Encounter for immunization Z23 [facility] [address] [id number] [place] [address] [facility] [place] [address] [id number] [place] [address] Jul Type 2 diabetes mellitus with hyperglycemia E11.65 ; senior care current use of insulin Z79.4 ; Morbid obesity due to excess calories E66.01 and Charcot foot due to diabetes mellitus E11.610 [facility] N[place] [address] [id number] [place] [address] Jun Type 2 diabetes mellitus with hyperglycemia E11.65 ; senior care current use of insulin Z79.4 ; Morbid obesity due to excess calories E66.01 ; Charcot foot due to diabetes mellitus E11.610 and Encounter for immunization Z23 [place] [address] [id number], [place] [address] Jun, [facility] [address] [facility]NOTE 3] [id number], [place] [address] Jun, [facility] N[place] [address] [id number] [place] [address] Jun Fever in other diseases R50.81 [facility] N[place] [address] [id number] [place] [address] [facility] [place] [address] [id number] [place] [address] [facility] [place] [address] [id number] [place] [address] May Type 2 diabetes mellitus with hyperglycemia E11.65 [facility] [address] [id number] [place] [address] May Type 2 diabetes mellitus with hyperglycemia E11.65 ; senior care current use of insulin Z79.4 ; Morbid obesity due to excess calories E66.01 ; Charcot foot due to diabetes mellitus E11.610 and Depression, unspecified depression type F32.9 IMMUNIZATIONS No Known Immunizations SOCIAL HISTORY Never Assessed REASON FOR VISIT receipt of PALS PLAN OF CARE VITAL SIGNS MEDICATIONS Unknown [...]
--- OUTSIDE RECORDS SUMMARY | 2018-06-05 14:30 | XMS REPORT ---
Author Author CLAUDIA ARCHER [facility] [employer] Address [address] [place] [address] Care Team Providers Care Heel Turner Name Role Phone CLAUDIA ARCHER Unavailable PROBLEMS Type Condition ICD9-CM Code DVF70-WI Code Onset Dates Condition Status SNOMED Code Problem Charcot foot due to diabetes mellitus E11.610 Active 80288300 Problem Depression, unspecified depression type F32.9 Active 39688693 Problem Neuropathy involving both lower extremities G57.93 Active 258871314 Problem BMI 40.0-44.9, adult Z68.41 Active 208586509 Problem Type 2 diabetes mellitus with hyperglycemia E11.65 Active 30289511 Problem custodial current use of insulin Z79.4 Active 039437699 Problem Essential hypertension I10 Active 26621135 Problem Morbid obesity due to excess calories E66.01 Active 293424400 ALLERGIES No Information ENCOUNTERS Encounter Location Date [facility] [address] [id number] [place] [address] Apr [facility] [address] [id number] [place] [address] Apr [facility] [address] [id number] [place] [address] Apr Type 2 diabetes mellitus with hyperglycemia E11.65 [facility] [address] [id number] [place] [address] Mar [facility] [address] [id number] [place] [address] Mar Depression, unspecified depression type F32.9 ; Neuropathy involving both lower extremities G57.93 and Diarrhea, unspecified type R19.7 [facility] [address] [id number] [place] [address] 13 Mar Charcot foot due to diabetes mellitus E11.610 [facility] [place] [address] [id number] [place] [address] Mar Type 2 diabetes mellitus with hyperglycemia E11.65 [facility] [place] [address] [id number] [place] [address] Feb Type 2 diabetes mellitus with hyperglycemia E11.65 ; Charcot foot due to diabetes mellitus E11.610 and BMI 50.0-59.9, adult Z68.43 [facility] [place] [address] [id number] [place] [address] Feb [facility] [place] [address] [id number] [place] [id number] Feb, [facility] [place] [address] [id number] [place] [address] Jan Depression, unspecified depression type F32.9 [facility] [place] [address] [id number] [place] [address] Jan Charcot foot due to diabetes mellitus E11.610 [facility] [address] [facility] [id number] [place] [address] Dec, [facility] [place] [address] [id number] [place] [address] Dec Charcot foot due to diabetes mellitus E11.610 [facility] [place] [address] [id number] [place] [address] Dec Neuropathy involving both lower extremities G57.93 [facility] [place] [address] [id number] [place] [address] Dec [facility] [place] [address] [id number] [place] [address] November [facility] [place] [address] [id number] [place] [address] November [facility] [place] [address] [id number] [place] [address] November [facility] [place] [address] [id number] [place] [address] November [facility] [place] [address] [id number] [place] [address] November Type 2 diabetes mellitus with hyperglycemia E11.65 ; custodial current use of insulin Z79.4 ; Morbid obesity due to excess calories E66.01 ; Charcot foot due to diabetes mellitus E11.610 ; Neuropathy involving both lower extremities G57.93 ; BMI 50.0-59.9, adult Z68.43 ; Depression, unspecified depression type F32.9 and Scrotal swelling N50.89 [facility] [place] [address] [id number] [place] [address] November [facility] [place] [address] [id number] [place] [address] Oct Charcot foot due to diabetes mellitus E11.610 [facility] [place] [address] [id number] [place] [address] Sep Type 2 diabetes mellitus with hyperglycemia E11.65 [facility] [place] [address] [id number] [place] [address] Sep Charcot foot due to diabetes mellitus E11.610 [facility] [place] [address] [id number] [place] [address] Sep [facility] [place] [address] [id number] [place] [address] [facility] [place] [address] [id number] [place] [address] Sep Scrotal swelling N50.89 ; Fungal infection of the groin B35.6 and BMI 50.0-59.9, adult Z68.43 [facility] [place] [address] [id number] [place] [address] Sep Scrotal swelling N50.89 [facility] [place] [address] [id number] [place] [address] Sep Scrotal swelling N50.89 [facility] [place] [address] [id number] [place] [address] Aug Scrotal swelling N50.89 [facility] [place] [address] [id number] [place] [address] 14 Aug Charcot foot due to diabetes mellitus E11.610 [facility] [place] [address] [id number] [place] [address] 09 Aug Type 2 diabetes mellitus with hyperglycemia E11.65 ; termination clerk current use of insulin Z79.4 ; Morbid obesity due to excess calories E66.01 ; Charcot foot due to diabetes mellitus E11.610 ; Depression, unspecified depression type F32.9 and Essential hypertension I10 [place] [id number] [address] Aug, [facility] [place] [address] [id number] [place] [address] Aug Scrotal swelling N50.89 and Depression, unspecified depression type F32.9 [place] [address] [address] Jul, [place] [address] [address] Jul, [facility] [place] [address] [facility] [address] [id number] [place] [id number] Jul, [facility] [place] [address] [id number] [place] [address] Jul Scrotal swelling N50.89 [facility] [place] [address] [id number] [place] [address] Jul [facility] [place] [address] [id number] [place] [address] Jul Scrotal swelling N50.89 [facility] [place] [address] [id number] [place] [address] Jul Charcot foot due to diabetes mellitus E11.610 [facility] [place] [address] [id number] [place] [address] Jul Depression, unspecified depression type F32.9 and BMI 50.0-59.9, adult Z68.43 [facility] [place] [address] [id number] [place] [address] Jun Depression, unspecified depression type F32.9 ; Charcot foot due to diabetes mellitus E11.610 and BMI 50.0-59.9, adult Z68.43 [facility] [place] [address] [id number] [place] [address] Jun [facility] [place] [address] [id number] [place] [address] May BMI 40.0-44.9, adult Z68.41 ; Type 2 diabetes mellitus with hyperglycemia E11.65 ; Essential hypertension I10 ; Depression, unspecified depression type F32.9 ; Charcot foot due to diabetes mellitus E11.610 and custodial current use of insulin Z79.4 [facility] [place] [address] [id number] [place] [address] May [facility] [place] [address] [id number] [place] [address] May [facility] [place] [address] [id number] [place] [address] May [facility] [place] [address] [id number] [place] [address] Apr [facility] [address] [facility] [id number] [place] [address] Apr, [facility] [place] [address] [id number] [place] [address] Apr [facility] [place] [address] [id number] [place] [address] Apr Type 2 diabetes mellitus with hyperglycemia E11.65 and Depression, unspecified depression type F32.9 [facility] [place] [address] [id number] [place] [address] Apr Encounter for immunization Z23 ; Type 2 diabetes mellitus with hyperglycemia E11.65 ; termination clerk current use of insulin Z79.4 ; Charcot foot due to diabetes mellitus E11.610 and Essential hypertension I10 [facility] [place] [address] [id number] [place] [address] Mar Essential hypertension I10 ; Charcot foot due to diabetes mellitus E11.610 and Type 2 diabetes mellitus with hyperglycemia E11.65 [facility] [place] [address] [id number] [place] [address] Mar [facility] [address] [facility] [id number] [place] [address] Feb, [facility] [place] [address] [id number] [place] [address] Feb Type 2 diabetes mellitus with hyperglycemia E11.65 ; Essential hypertension I10 ; termination clerk current use of insulin Z79.4 ; Morbid obesity due to excess calories E66.01 ; Charcot foot due to diabetes mellitus E11.610 and Depression, unspecified depression type F32.9 [facility] [place] [address] [id number] [place] [address] Jan [facility] [place] [address] [id number] [place] [address] Jan [facility] [place] [address] [id number] [place] [address] Jan [facility] [address] [facility] [id number] [place] [address] Jan, [facility] [place] [address] [id number] [place] [address] Dec Charcot foot due to diabetes mellitus E11.610 [facility] [place] [address] [id number] [place] [address] November [facility] [place] [address] [id number] [place] [address] November Type 2 diabetes mellitus with hyperglycemia E11.65 ; custodial current use of insulin Z79.4 and Charcot foot due to diabetes mellitus E11.610 [facility] [place] [address] [id number] [place] [address] November Bronchitis J40 [facility] [place] [address] [id number] [place] [address] Oct Cellulitis of right lower extremity L03.115 and Charcot foot due to diabetes mellitus E11.610 [facility] [place] [address] [id number] [place] [address] Sep [place] [address] [id number] [address] Sep, [facility] [place] [address] [id number] [place] [address] Sep Bronchitis J40 [facility] [address] [place] [address] AVE [id number] [place] [id number] 08 Sep, 2016 [facility] [place] [address] [id number] [place] [address] Sep Bronchitis J40 [facility] [place] [address] [id number] [place] [address] Sep Type 2 diabetes mellitus with hyperglycemia E11.65 [facility] [place] [address] [id number] [place] [address] Sep [place] [address] [facility] [id number] [place] [address] Aug, [facility] [place] [address] [id number] [place] [address] Aug Type 2 diabetes mellitus with hyperglycemia E11.65 ; Depression, unspecified depression type F32.9 ; Charcot foot due to diabetes mellitus E11.610 and Encounter for immunization Z23 [facility] [place] [address] [id number] [place] [address] Aug [facility] [place] [address] [id number] [place] [address] Jul Type 2 diabetes mellitus with hyperglycemia E11.65 ; termination clerk current use of insulin Z79.4 ; Morbid obesity due to excess calories E66.01 and Charcot foot due to diabetes mellitus E11.610 [facility] [place] [address] [id number] [place] [address] Jun Type 2 diabetes mellitus with hyperglycemia E11.65 ; termination clerk current use of insulin Z79.4 ; Morbid obesity due to excess calories E66.01 ; Charcot foot due to diabetes mellitus E11.610 and Encounter for immunization Z23 [facility] [address] [facility] [id number] [place] [address] Jun, [facility] [address] [facility] [id number] [place] [address] Jun, [facility] [address] [id number] [place] [address] Jun Fever in other diseases R50.81 [facility] [place] [address] [id number] [place] [address] May [facility] [address] [id number] [place] [address] May [facility] [address] [id number] [place] [address] May Type 2 diabetes mellitus with hyperglycemia E11.65 [facility] [address] [id number] [place] [address] May Type 2 diabetes mellitus with hyperglycemia E11.65 ; termination clerk current use of insulin Z79.4 ; Morbid obesity due to excess calories E66.01 ; Charcot foot due to diabetes mellitus E11.610 and Depression, unspecified depression type F32.9 IMMUNIZATIONS No Known Immunizations SOCIAL HISTORY Never Assessed REASON FOR VISIT PALS renewal for Toujeo PLAN OF CARE VITAL SIGNS MEDICATIONS Medication Instructions Dosage Frequency Start Date End Date Duration Status Toujeo SoloStar 300 UNIT/ML Subcutaneous Once a day 75 units 24h 90 days Active RESULTS No Results PROCEDURES No Known procedures [...]
--- OUTSIDE RECORDS SUMMARY | 2018-06-05 14:30 | XMS REPORT ---
Author Author [facility] [address] [place] [address] Care Team Providers Care Mechatronics Engineer Name Role Phone CLAUDIA ARCHER Unavailable PROBLEMS Type Condition ICD9-CM Code IFP96-JY Code Onset Dates Condition Status SNOMED Code Problem Charcot foot due to diabetes mellitus E11.610 Active 00329198 Problem Depression, unspecified depression type F32.9 Active 51284628 Problem Neuropathy involving both lower extremities G57.93 Active 143660212 Problem BMI 40.0-44.9, adult Z68.41 Active 303515507 Problem Type 2 diabetes mellitus with hyperglycemia E11.65 Active 17090459 Problem alf current use of insulin Z79.4 Active 942538040 Problem Essential hypertension I10 Active 40783577 Problem Morbid obesity due to excess calories E66.01 Active 601393838 ALLERGIES No Information ENCOUNTERS Encounter Location Date Diagnosis [facility] [address] [id number] [place] [address] May [facility] [address] [id number] [place] [address] Apr [facility] [address] [id number] [place] [address] 18 Apr Depression, unspecified depression type F32.9 ; BMI 50.0-59.9, adult Z68.43 and Encounter for immunization Z23 [facility] [address] [id number] [place] [address] Apr Charcot foot due to diabetes mellitus E11.610 [facility] [address] [id number] [place] [address] Apr Type 2 diabetes mellitus with hyperglycemia E11.65 [facility] [address] [id number] [place] [address] Mar [facility] [place] [address] [id number] [place] [address] 20 Mar Depression, unspecified depression type F32.9 ; Neuropathy involving both lower extremities G57.93 and Diarrhea, unspecified type R19.7 [facility] [place] [address] [id number] [place] [address] 13 Mar Charcot foot due to diabetes mellitus E11.610 [facility] [place] [address] [id number] [place] [address] 10 Mar Type 2 diabetes mellitus with hyperglycemia E11.65 [facility] [place] [address] [id number] [place] [address] Feb Type 2 diabetes mellitus with hyperglycemia E11.65 ; Charcot foot due to diabetes mellitus E11.610 and BMI 50.0-59.9, adult Z68.43 [facility] [place] [address] [id number] [place] [address] Feb [facility] [place] [address] [facility] [id number] [place] [id number] Feb, [facility] [place] [address] [id number] [place] [address] Jan Depression, unspecified depression type F32.9 [facility] [place] [address] [id number] [place] [address] Jan Charcot foot due to diabetes mellitus E11.610 [facility] [address] [facility] [id number] [place] [address] Dec, [facility] [place] [address] [id number] [place] [address] Dec Charcot foot due to diabetes mellitus E11.610 [facility] [place] [address] [id number] [place] [address] Dec Neuropathy involving both lower extremities G57.93 [facility] [place] [address] [id number] [place] [address] Dec [facility] [place] [address] [id number] [place] [address] November [facility] [place] [address] [id number] [place] [address] November [facility] [place] [address] [id number] [place] [address] November [facility] [place] [address] [id number] [place] [address] November [facility] [place] [address] [id number] [place] [address] November Type 2 diabetes mellitus with hyperglycemia E11.65 ; alf current use of insulin Z79.4 ; Morbid obesity due to excess calories E66.01 ; Charcot foot due to diabetes mellitus E11.610 ; Neuropathy involving both lower extremities G57.93 ; BMI 50.0-59.9, adult Z68.43 ; Depression, unspecified depression type F32.9 and Scrotal swelling N50.89 [facility] [place] [address] [id number] [place] [address] November [facility] [place] [address] [id number] [place] [address] Oct Charcot foot due to diabetes mellitus E11.610 [facility] [place] [address] [id number] [place] [address] Sep Type 2 diabetes mellitus with hyperglycemia E11.65 [facility] [place] [address] [id number] [place] [address] Sep Charcot foot due to diabetes mellitus E11.610 [facility] [place] [address] [id number] [place] [address] Sep [facility] [place] [address] [id number] [place] [address] [facility] [place] [address] [id number] [place] [address] 08 Sep Scrotal swelling N50.89 ; Fungal infection of the groin B35.6 and BMI 50.0-59.9, adult Z68.43 [facility] [place] [address] [id number] [place] [address] Sep Scrotal swelling N50.89 [facility] [place] [address] [id number] [place] [address] Sep Scrotal swelling N50.89 [facility] [place] [address] [id number] [place] [address] Aug Scrotal swelling N50.89 [facility] [place] [address] [id number] [place] [address] 14 Aug Charcot foot due to diabetes mellitus E11.610 [facility] [place] [address] [id number] [place] [address] 09 Aug Type 2 diabetes mellitus with hyperglycemia E11.65 ; alf current use of insulin Z79.4 ; Morbid obesity due to excess calories E66.01 ; Charcot foot due to diabetes mellitus E11.610 ; Depression, unspecified depression type F32.9 and Essential hypertension I10 [place] [address] [id number] [address] Aug, [facility] [place] [address] [id number] [place] [address] Aug Scrotal swelling N50.89 and Depression, unspecified depression type F32.9 [place] [address] [id number] [address] Jul, [place] [address] [facility] [id number] [address] Jul, [address] [id number] [place] [address] Jul, [facility] [place] [address] [id number] [place] [address] Jul Scrotal swelling N50.89 [facility] [place] [address] [id number] [place] [address] Jul [facility] [place] [address] [id number] [place] [address] Jul Scrotal swelling N50.89 [facility] [place] [address] [id number] [place] [address] Jul Charcot foot due to diabetes mellitus E11.610 [facility] [place] [address] [id number] [place] [address] Jul Depression, unspecified depression type F32.9 and BMI 50.0-59.9, adult Z68.43 [facility] [place] [address] [id number] [place] [address] Jun Depression, unspecified depression type F32.9 ; Charcot foot due to diabetes mellitus E11.610 and BMI 50.0-59.9, adult Z68.43 [facility] [place] [address] [id number] [place] [address] Jun [facility] [place] [address] [id number] [place] [address] May BMI 40.0-44.9, adult Z68.41 ; Type 2 diabetes mellitus with hyperglycemia E11.65 ; Essential hypertension I10 ; Depression, unspecified depression type F32.9 ; Charcot foot due to diabetes mellitus E11.610 and alf current use of insulin Z79.4 [facility] [place] [address] [id number] [place] [address] May [facility] [place] [address] [id number] [place] [address] May [facility] [place] [address] [id number] [place] [address] May [facility] [place] [address] [id number] [place] [address] Apr [facility] [address] [facility] [id number] [place] [address] Apr, [facility] [place] [address] [id number] [place] [address] Apr [facility] [place] [address] [id number] [place] [address] Apr Type 2 diabetes mellitus with hyperglycemia E11.65 and Depression, unspecified depression type F32.9 [facility] [place] [address] [id number] [place] [address] Apr Encounter for immunization Z23 ; Type 2 diabetes mellitus with hyperglycemia E11.65 ; alf current use of insulin Z79.4 ; Charcot foot due to diabetes mellitus E11.610 and Essential hypertension I10 [facility] [place] [address] [id number] [place] [address] Mar Essential hypertension I10 ; Charcot foot due to diabetes mellitus E11.610 and Type 2 diabetes mellitus with hyperglycemia E11.65 [facility] [place] [address] [id number] [place] [address] Mar [place] [address] [facility] [id number] [address] Feb, [facility] [place] [address] [id number] [place] [address] Feb Type 2 diabetes mellitus with hyperglycemia E11.65 ; Essential hypertension I10 ; alf current use of insulin Z79.4 ; Morbid obesity due to excess calories E66.01 ; Charcot foot due to diabetes mellitus E11.610 and Depression, unspecified depression type F32.9 [facility] [place] [address] [id number] [place] [address] Jan [facility] [address] [id number] [place] [address] Jan [facility] [place] [address] [id number] [place] [address] Jan [place] [address] [id number] [place] [address] Jan, [facility] [place] [address] [id number] [place] [address] Dec Charcot foot due to diabetes mellitus E11.610 [facility] [place] [address] [id number] [place] [address] November [facility] [place] [address] [id number] [place] [address] November Type 2 diabetes mellitus with hyperglycemia E11.65 ; watermelon inspector current use of insulin Z79.4 and Charcot foot due to diabetes mellitus E11.610 [facility] [place] [address] [id number] [place] [address] November Bronchitis J40 [facility] [place] [address] [id number] [place] [address] Oct Cellulitis of right lower extremity L03.115 and Charcot foot due to diabetes mellitus E11.610 [facility] [place] [address] [id number] [place] [address] Sep [facility] [address] [facility] [id number] [address] Sep, [facility] [place] [address] [id number] [place] [address] Sep Bronchitis J40 [facility] [address] [id number] [place] [address] Sep, [facility] [place] [address] [id number] [place] [address] Sep Bronchitis J40 [facility] [place] [address] [id number] [place] [address] Sep Type 2 diabetes mellitus with hyperglycemia E11.65 [facility] [place] [address] [id number] [place] [address] Sep [facility] [address] [id number] [place] [address] Aug, [facility] [place] [address] [id number] [place] [address] Aug Type 2 diabetes mellitus with hyperglycemia E11.65 ; Depression, unspecified depression type F32.9 ; Charcot foot due to diabetes mellitus E11.610 and Encounter for immunization Z23 [facility] [place] [address] [id number] [place] [address] Aug [facility] [place] [address] [id number] [place] [address] Jul Type 2 diabetes mellitus with hyperglycemia E11.65 ; watermelon inspector current use of insulin Z79.4 ; Morbid obesity due to excess calories E66.01 and Charcot foot due to diabetes mellitus E11.610 [facility] [place] [address] [id number] [place] [address] Jun Type 2 diabetes mellitus with hyperglycemia E11.65 ; alf current use of insulin Z79.4 ; Morbid obesity due to excess calories E66.01 ; Charcot foot due to diabetes mellitus E11.610 and Encounter for immunization Z23 [facility] [address] [facility] [id number] [place] [address] Jun, [facility] [address] [facility] [id number] [place] [address] Jun, [facility] [place] [address] [id number] [place] [address] Jun Fever in other diseases R50.81 [facility] [place] [address] [id number] [place] [address] May [facility] [place] [address] [id number] [place] [address] May [facility] [place] [address] [id number] [place] [address] May Type 2 diabetes mellitus with hyperglycemia E11.65 [facility] [place] [address] [id number] [place] [address] 10 May Type 2 diabetes mellitus with hyperglycemia E11.65 ; alf current use of insulin Z79.4 ; Morbid [...]
--- OUTSIDE RECORDS SUMMARY | 2018-06-05 14:30 | XMS REPORT ---
Author Author [facility] Address [address] [place] [address] Care Team Providers Care Screen Tacker Name Role Phone CLAUDIA ARCHER Unavailable PROBLEMS Type Condition ICD9-CM Code PGS60-KD Code Onset Dates Condition Status SNOMED Code Problem Charcot foot due to diabetes mellitus E11.610 Active 97516011 Problem Depression, unspecified depression type F32.9 Active 07711086 Problem Neuropathy involving both lower extremities G57.93 Active 456520006 Problem BMI 40.0-44.9, adult Z68.41 Active 397558278 Problem Type 2 diabetes mellitus with hyperglycemia E11.65 Active 61517324 Problem senior living current use of insulin Z79.4 Active 450114439 Problem Essential hypertension I10 Active 56969142 Problem Morbid obesity due to excess calories E66.01 Active 836152914 ALLERGIES No Known Allergies ENCOUNTERS Encounter Location Date Diagnosis [facility] [address] [id number] [place] [address] May [facility] [address] [id number] [place] [address] Apr [facility] [address] [id number] [place] [address] 18 Apr Depression, unspecified depression type F32.9 ; BMI 50.0-59.9, adult Z68.43 and Encounter for immunization Z23 [facility] [address] [id number] [place] [address] Apr Charcot foot due to diabetes mellitus E11.610 [facility] [address] [id number] [place] [address] Apr Type 2 diabetes mellitus with hyperglycemia E11.65 [facility] [address] [id number] [place] [address] Mar [facility] [place] [address] [id number] [place] [address] 20 Mar Depression, unspecified depression type F32.9 ; Neuropathy involving both lower extremities G57.93 and Diarrhea, unspecified type R19.7 [facility] [place] [address] [id number] [place] [address] 13 Mar Charcot foot due to diabetes mellitus E11.610 [facility] [place] [address] [id number] [place] [address] 10 Mar Type 2 diabetes mellitus with hyperglycemia E11.65 [facility] [place] [address] [id number] [place] [address] 16 Feb Type 2 diabetes mellitus with hyperglycemia E11.65 ; Charcot foot due to diabetes mellitus E11.610 and BMI 50.0-59.9, adult Z68.43 [facility] [place] [address] [id number] [place] [address] Feb [facility] [address] [facility] [id number] [place] [id number] Feb, [facility] [place] [address] [id number] [place] [address] Jan Depression, unspecified depression type F32.9 [facility] [place] [address] [id number] [place] [address] Jan Charcot foot due to diabetes mellitus E11.610 [facility] [place] [address] [facility] [id number] [place] [address] Dec, [facility] [place] [address] [id number] [place] [address] Dec Charcot foot due to diabetes mellitus E11.610 [facility] [place] [address] [id number] [place] [address] Dec Neuropathy involving both lower extremities G57.93 [facility] [place] [address] [id number] [place] [address] Dec [facility] [place] [address] [id number] [place] [address] November [facility] [place] [address] [id number] [place] [address] November [facility] [place] [address] [id number] [place] [address] November [facility] [place] [address] [id number] [place] [address] November [facility] [place] [address] [id number] [place] [address] November Type 2 diabetes mellitus with hyperglycemia E11.65 ; senior living current use of insulin Z79.4 ; Morbid obesity due to excess calories E66.01 ; Charcot foot due to diabetes mellitus E11.610 ; Neuropathy involving both lower extremities G57.93 ; BMI 50.0-59.9, adult Z68.43 ; Depression, unspecified depression type F32.9 and Scrotal swelling N50.89 [facility] [place] [address] [id number] [place] [address] November [facility] [place] [address] [id number] [place] [address] Oct Charcot foot due to diabetes mellitus E11.610 [facility] [place] [address] [id number] [place] [address] Sep Type 2 diabetes mellitus with hyperglycemia E11.65 [facility] [place] [address] [id number] [place] [address] Sep Charcot foot due to diabetes mellitus E11.610 [facility] [place] [address] [id number] [place] [address] Sep [facility] [place] [address] [id number] [place] [address] Sep [facility] [place] [address] [id number] [place] [address] 08 Sep Scrotal swelling N50.89 ; Fungal infection of the groin B35.6 and BMI 50.0-59.9, adult Z68.43 [facility] [place] [address] [id number] [place] [address] Sep Scrotal swelling N50.89 [facility] [place] [address] [id number] [place] [address] Sep Scrotal swelling N50.89 [facility] [place] [address] [id number] [place] [address] Aug Scrotal swelling N50.89 [facility] [place] [address] [id number] [place] [address] 14 Aug Charcot foot due to diabetes mellitus E11.610 [facility] [place] [address] [id number] [place] [address] 09 Aug Type 2 diabetes mellitus with hyperglycemia E11.65 ; tank terminal gauger current use of insulin Z79.4 ; Morbid obesity due to excess calories E66.01 ; Charcot foot due to diabetes mellitus E11.610 ; Depression, unspecified depression type F32.9 and Essential hypertension I10 [place] [id number] [address] Aug, [facility] [place] [address] [id number] [place] [address] Aug Scrotal swelling N50.89 and Depression, unspecified depression type F32.9 [place] [address] [id number], [place] [address] Jul, [place] [address] [facility] [id number], [place] [address] Jul, [address] [id number] [place] [address] Jul, [facility] [place] [address] [id number] [place] [address] Jul Scrotal swelling N50.89 [facility] [place] [address] [id number] [place] [address] Jul [facility] [place] [address] [id number] [place] [address] Jul Scrotal swelling N50.89 [facility] [place] [address] [id number] [place] [address] Jul Charcot foot due to diabetes mellitus E11.610 [facility] [place] [address] [id number] [place] [address] Jul Depression, unspecified depression type F32.9 and BMI 50.0-59.9, adult Z68.43 [facility] [place] [address] [id number] [place] [address] Jun Depression, unspecified depression type F32.9 ; Charcot foot due to diabetes mellitus E11.610 and BMI 50.0-59.9, adult Z68.43 [facility] [place] [address] [id number] [place] [address] Jun [facility] [place] [address] [id number] [place] [address] May BMI 40.0-44.9, adult Z68.41 ; Type 2 diabetes mellitus with hyperglycemia E11.65 ; Essential hypertension I10 ; Depression, unspecified depression type F32.9 ; Charcot foot due to diabetes mellitus E11.610 and senior living current use of insulin Z79.4 [facility] [place] [address] [id number] [place] [address] May [facility] [place] [address] [id number] [place] [address] May [facility] [place] [address] [id number] [place] [address] May [facility] [place] [address] [id number] [place] [address] Apr [facility] [place] [address] [facility] [id number] [place] [address] Apr, [facility] [place] [address] [id number] [place] [address] Apr [facility] [place] [address] [id number] [place] [address] Apr Type 2 diabetes mellitus with hyperglycemia E11.65 and Depression, unspecified depression type F32.9 [facility] [place] [address] [id number] [place] [address] 10 Apr Encounter for immunization Z23 ; Type 2 diabetes mellitus with hyperglycemia E11.65 ; senior living current use of insulin Z79.4 ; Charcot foot due to diabetes mellitus E11.610 and Essential hypertension I10 [facility] [place] [address] [id number] [place] [address] Mar Essential hypertension I10 ; Charcot foot due to diabetes mellitus E11.610 and Type 2 diabetes mellitus with hyperglycemia E11.65 [facility] [place] [address] [id number] [place] [address] Mar [place] [address] [facility] [id number] [address] Feb, [facility] [place] [address] [id number] [place] [address] Feb Type 2 diabetes mellitus with hyperglycemia E11.65 ; Essential hypertension I10 ; senior living current use of insulin Z79.4 ; Morbid obesity due to excess calories E66.01 ; Charcot foot due to diabetes mellitus E11.610 and Depression, unspecified depression type F32.9 [facility] [place] [address] [id number] [place] [address] Jan [facility] [place] [address] [id number] [place] [address] Jan [facility] [place] [address] [id number] [place] [address] Jan [place] [address] [facility] [id number] [place] [address] Jan, [facility] [place] [address] [id number] [place] [address] Dec Charcot foot due to diabetes mellitus E11.610 [facility] [place] [address] [id number] [place] [address] November [facility] [place] [address] [id number] [place] [address] November Type 2 diabetes mellitus with hyperglycemia E11.65 ; senior living current use of insulin Z79.4 and Charcot foot due to diabetes mellitus E11.610 [facility] [place] [address] [id number] [place] [address] November Bronchitis J40 [facility] [place] [address] [id number] [place] [address] Oct Cellulitis of right lower extremity L03.115 and Charcot foot due to diabetes mellitus E11.610 [facility] [place] [address] [id number] [place] [address] Sep [facility] [place] [address] [facility] [id number] [place] [address] Sep, [facility] [place] [address] [id number] [place] [address] Sep Bronchitis J40 [facility] [address] [id number] [place] [id number] Sep, [facility] [place] [address] [id number] [place] [address] Sep Bronchitis J40 [facility] [place] [address] [id number] [place] [address] Sep Type 2 diabetes mellitus with hyperglycemia E11.65 [facility] [place] [address] [id number] [place] [address] Sep [facility] [place] [address] [id number] [place] [address] Aug, [facility] [place] [address] [id number] [place] [address] Aug Type 2 diabetes mellitus with hyperglycemia E11.65 ; Depression, unspecified depression type F32.9 ; Charcot foot due to diabetes mellitus E11.610 and Encounter for immunization Z23 [facility] [place] [address] [id number] [place] [address] Aug [facility] [place] [address] [id number] [place] [address] Jul Type 2 diabetes mellitus with hyperglycemia E11.65 ; senior living current use of insulin Z79.4 ; Morbid obesity due to excess calories E66.01 and Charcot foot due to diabetes mellitus E11.610 [facility] [place] [address] [id number] [place] [address] Jun Type 2 diabetes mellitus with hyperglycemia E11.65 ; senior living current use of insulin Z79.4 ; Morbid obesity due to excess calories E66.01 ; Charcot foot due to diabetes mellitus E11.610 and Encounter for immunization Z23 [facility] [place] [address] [id number] [place] [address] 07 Jun, 2016 [facility] [place] [address] [facility] [id number] [place] [address] Jun, [facility] [place] [address] [id number] [place] [address] Jun Fever in other diseases R50.81 [facility] [place] [address] [id number] [place] [address] May [facility] [place] [address] [id number] [place] [address] 14 May [facility] [place] [address] [id number] [place] [address] May Type 2 diabetes mellitus with hyperglycemia E11.65 [facility] [place] [address] [id number] [place] [address] 10 May Type 2 diabetes mellitus with hyperglycemia E11.65 ; senior living current use of insulin Z79.4 ; Morbid obesity due to excess calories E66.01 ; Charcot foot due to diabetes mellitus E11.610 and Depression, unspecified depression type F32.9 IMMUNIZATIONS Vaccine Route Administration Date Status FLULAVAL QUAD 0.5ML (6 MO & UP) 2018 IM Intramuscular Apr 26, 2018 Administered SOCIAL HISTORY Never Assessed REASON FOR VISIT follow up for depression Pippa Silva RN PLAN OF CARE Activity Details Follow Up 4 Weeks Reason:f/u depression VITAL SIGNS Height 74 in 2018-04-26 Weight 450.5 lbs 2018-04-26 Temperature 97.6 degrees Fahrenheit 2018-04-26 Heart Rate 90 bpm 2018-04-26 Respiratory Rate 20 2018-04-26 BMI 57.83 kg/m2 2018-04-26 Blood pressure systolic 172 mmHg 2018-04-26 Blood pressure diastolic 90 mmHg 2018-04-26 MEDICATIONS Medication Instructions Dosage Frequency Start Date End Date Duration Status Ibuprofen 200 MG Orally PRN 4 tab Active Bydureon 2 MG Subcutaneous weekly 2 mg November, Active Multivitamin Men Orally PRN 1 tablet Active Viibryd 40 MG Orally Once a day 1 tablet with food 24h Jun, Active Lisinopril 40 MG TAKE 1 TABLET BY MOUTH ONCE DAILY 30 Active Percocet 10-325 MG Orally every 6 hrs 1 tablet as needed 6h Apr, 28 days Active MetFORMIN HCl ER 500 MG TAKE 2 TABLETS BY MOUTH TWICE DAILY 30 Active Wellbutrin XL 150 MG Orally Once a day 1 tablet in the morning 24h Mar, Active Glucocard Expression Test - TEST BLOOD SUGAR FOUR TIMES DAILY 25 Active Atorvastatin Calcium 80 MG Orally Once a day 1/2 tablet 24h May, 90 days Active Lyrica 75 MG Orally Twice a day 1 capsule 12h Mar, 90 days Active Pen Orono 32G X 4 MM subcutaneously 3 times a day as directed 8h Sep, 90 days Active Glucocard Expression Monitor w/Device as directed Mar, Active Toujeo SoloStar 300 UNIT/ML Subcutaneous Once a day 75 units 24h 90 days Active NovoLog 100 UNIT/ML Subcutaneous 3 times a day 50 unit at meals 8h 90 days Active RESULTS No Results PROCEDURES Procedure Date Ordered Result Body Site FLULAVAL QUAD 0.5ML (6 MO AND UP) 2017Apr 26, 2018 SINGLE IMMUNIZATION ADMIN Apr 26, 2018 INSTRUCTIONS MEDICATIONS ADMINISTERED No Known Medications MEDICAL (GENERAL) HISTORY Type Description Date Medical History type II diabetes Medical History charcoat Medical History depression Medical History Diabetic ulcer on bottom of foot per wound care Surgical History lap angel Surgical History Lt knee scope Surgical History circumscison revision Surgical History Lt foot Hospitalization History surgeries
--- OUTSIDE RECORDS SUMMARY | 2018-06-05 14:31 | XMS REPORT ---
Author Author CLAUDIA ARCHER [facility] Address [address] [place] [address] Care Team Providers Care Regional Business Manager Name Role Phone CLAUDIA ARCHER Unavailable PROBLEMS Type Condition ICD9-CM Code VTH52-LT Code Onset Dates Condition Status SNOMED Code Problem Charcot foot due to diabetes mellitus E11.610 Active 70432138 Problem Depression, unspecified depression type F32.9 Active 57343315 Problem Neuropathy involving both lower extremities G57.93 Active 311940151 Problem BMI 40.0-44.9, adult Z68.41 Active 540714322 Problem Type 2 diabetes mellitus with hyperglycemia E11.65 Active 74733893 Problem FCI current use of insulin Z79.4 Active 307730583 Problem Essential hypertension I10 Active 75403039 Problem Morbid obesity due to excess calories E66.01 Active 681172292 ALLERGIES No Known Allergies ENCOUNTERS Encounter Location Date Diagnosis [facility] [address] [id number] [place] [address] Apr [facility] [address] [id number] [place] [address] 20 Mar Depression, unspecified depression type F32.9 ; Neuropathy involving both lower extremities G57.93 and Diarrhea, unspecified type R19.7 [facility] [address] [id number] [place] [address] 13 Mar Charcot foot due to diabetes mellitus E11.610 [facility] [address] [id number] [place] [address] 10 Mar Type 2 diabetes mellitus with hyperglycemia E11.65 [facility] [address] [id number] [place] [address] Feb Type 2 diabetes mellitus with hyperglycemia E11.65 ; Charcot foot due to diabetes mellitus E11.610 and BMI 50.0-59.9, adult Z68.43 [facility] [place] [address] [id number] [place] [address] Feb [facility] [address] [facility] [id number] [place] [id number] Feb, [facility] [place] [address] [id number] [place] [address] Jan Depression, unspecified depression type F32.9 [facility] [place] [address] [id number] [place] [address] Jan Charcot foot due to diabetes mellitus E11.610 [facility] [address] [facility] [id number] [place] [address] Dec, [facility] [place] [address] [id number] [place] [address] Dec Charcot foot due to diabetes mellitus E11.610 [facility] [place] [address] [id number] [place] [address] Dec Neuropathy involving both lower extremities G57.93 [facility] [place] [address] [id number] [place] [address] Dec [facility] [place] [address] [id number] [place] [address] November [facility] [place] [address] [id number] [place] [address] November [facility] [place] [address] [id number] [place] [address] November [facility] [place] [address] [id number] [place] [address] November [facility] [place] [address] [id number] [place] [address] November Type 2 diabetes mellitus with hyperglycemia E11.65 ; 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.4 ; Morbid obesity due to excess calories E66.01 ; Charcot foot due to diabetes mellitus E11.610 ; Neuropathy involving both lower extremities G57.93 ; BMI 50.0-59.9, adult Z68.43 ; Depression, unspecified depression type F32.9 and Scrotal swelling N50.89 [facility] [place] [address] [id number] [place] [address] November [facility] [place] [address] [id number] [place] [address] Oct Charcot foot due to diabetes mellitus E11.610 [facility] [place] [address] [id number] [place] [address] Sep Type 2 diabetes mellitus with hyperglycemia E11.65 [facility] [place] [address] [id number] [place] [address] Sep Charcot foot due to diabetes mellitus E11.610 [facility] [place] [address] [id number] [place] [address] Sep [facility] [place] [address] [id number] [place] [address] Sep [facility] [place] [address] [id number] [place] [address] Sep Scrotal swelling N50.89 ; Fungal infection of the groin B35.6 and BMI 50.0-59.9, adult Z68.43 [facility] [place] [address] [id number] [place] [address] Sep Scrotal swelling N50.89 [facility] [place] [address] [id number] [place] [address] Sep Scrotal swelling N50.89 [facility] [place] [address] [id number] [place] [address] Aug Scrotal swelling N50.89 [facility] [place] [address] [id number] [place] [address] Aug Charcot foot due to diabetes mellitus E11.610 [facility] [place] [address] [id number] [place] [address] 09 Aug Type 2 diabetes mellitus with hyperglycemia E11.65 ; FCI current use of insulin Z79.4 ; Morbid obesity due to excess calories E66.01 ; Charcot foot due to diabetes mellitus E11.610 ; Depression, unspecified depression type F32.9 and Essential hypertension I10 [facility] [address] [facility] [id number] [place] [address] Aug, [facility] [place] [address] [id number] [place] [address] Aug Scrotal swelling N50.89 and Depression, unspecified depression type F32.9 [facility] [address] [facility] [id number] [place] [address] Jul, [facility] [address] [facility] [id number] [place] [address] Jul, [facility] [id number] [id number] [place] [id number] Jul, [facility] [place] [address] [id number] [place] [address] Jul Scrotal swelling N50.89 [facility] [place] [address] [id number] [place] [address] Jul [facility] [place] [address] [id number] [place] [address] Jul Scrotal swelling N50.89 [facility] [place] [address] [id number] [place] [address] Jul Charcot foot due to diabetes mellitus E11.610 [facility] [place] [address] [id number] [place] [address] Jul Depression, unspecified depression type F32.9 and BMI 50.0-59.9, adult Z68.43 [facility] [place] [address] [id number] [place] [address] Jun Depression, unspecified depression type F32.9 ; Charcot foot due to diabetes mellitus E11.610 and BMI 50.0-59.9, adult Z68.43 [facility] [place] [address] [id number] [place] [address] Jun [facility] [place] [address] [id number] [place] [address] May BMI 40.0-44.9, adult Z68.41 ; Type 2 diabetes mellitus with hyperglycemia E11.65 ; Essential hypertension I10 ; Depression, unspecified depression type F32.9 ; Charcot foot due to diabetes mellitus E11.610 and FCI current use of insulin Z79.4 [facility] [place] [address] [id number] [place] [address] May [facility] [place] [address] [id number] [place] [address] May [facility] [place] [address] [id number] [place] [address] May [facility] [place] [address] [id number] [place] [address] Apr [facility] [address] [facility] [id number] [place] [address] Apr, [facility] [place] [address] [id number] [place] [address] Apr [facility] [place] [address] [id number] [place] [address] Apr Type 2 diabetes mellitus with hyperglycemia E11.65 and Depression, unspecified depression type F32.9 [facility] [place] [address] [id number] [place] [address] Apr Encounter for immunization Z23 ; Type 2 diabetes mellitus with hyperglycemia E11.65 ; FCI current use of insulin Z79.4 ; Charcot foot due to diabetes mellitus E11.610 and Essential hypertension I10 [facility] [place] [address] [id number] [place] [address] Mar Essential hypertension I10 ; Charcot foot due to diabetes mellitus E11.610 and Type 2 diabetes mellitus with hyperglycemia E11.65 [facility] [place] [address] [id number] [place] [address] Mar [facility] [address] [facility] [id number] [place] [address] Feb, [facility] [place] [address] [id number] [place] [address] Feb Type 2 diabetes mellitus with hyperglycemia E11.65 ; Essential hypertension I10 ; FCI current use of insulin Z79.4 ; Morbid obesity due to excess calories E66.01 ; Charcot foot due to diabetes mellitus E11.610 and Depression, unspecified depression type F32.9 [facility] [place] [address] [id number] [place] [address] Jan [facility] [place] [address] [id number] [place] [address] Jan [facility] [place] [address] [id number] [place] [address] Jan [place] [address] [facility] [id number] [place] [address] Jan, [facility] [place] [address] [id number] [place] [address] Dec Charcot foot due to diabetes mellitus E11.610 [facility] [place] [address] [id number] [place] [address] November [facility] [place] [address] [id number] [place] [address] November Type 2 diabetes mellitus with hyperglycemia E11.65 ; FCI current use of insulin Z79.4 and Charcot foot due to diabetes mellitus E11.610 [facility] [place] [address] [id number] [place] [address] November Bronchitis J40 [facility] [place] [address] [id number] [place] [address] Oct Cellulitis of right lower extremity L03.115 and Charcot foot due to diabetes mellitus E11.610 [facility] [place] [address] [id number] [place] [address] Sep [facility] [address] [facility] [id number] [place] [address] Sep, [facility] [place] [address] [id number] [place] [address] Sep Bronchitis J[address] [address] [id number] [place] [id number] Sep, [facility] [place] [address] [id number] [place] [address] Sep Bronchitis J40 [facility] [place] [address] [id number] [place] [address] Sep Type 2 diabetes mellitus with hyperglycemia E11.65 [facility] [place] [address] [id number] [place] [address] Sep [place] [address] [facility] [id number] [address] Aug, [facility] [place] [address] [id number] [place] [address] Aug Type 2 diabetes mellitus with hyperglycemia E11.65 ; Depression, unspecified depression type F32.9 ; Charcot foot due to diabetes mellitus E11.610 and Encounter for immunization Z23 [facility] [place] [address] [id number] [place] [address] Aug [facility] [place] [address] [id number] [place] [address] Jul Type 2 diabetes mellitus with hyperglycemia E11.65 ; 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.4 ; Morbid obesity due to excess calories E66.01 and Charcot foot due to diabetes mellitus E11.610 [facility] N[facility] [address] [id number] [place] [address] Jun Type 2 diabetes mellitus with hyperglycemia E11.65 ; 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.4 ; Morbid obesity due to excess calories E66.01 ; Charcot foot due to diabetes mellitus E11.610 and Encounter for immunization Z23 [place] [address] [facility] [id number] [place] [address] Jun, [facility] [address] [facility] [id number] [address] Jun, [facility] [address] [id number] [place] [address] Jun Fever in other diseases R50.81 [facility] [id number] [place] [address] May [facility] [address] [id number] [place] [address] May [facility] [place]RAWALMANPREET FISHER [id number] [place] [address] May Type 2 diabetes mellitus with hyperglycemia E11.65 [facility] [id number] [place] [address] 10 May Type 2 diabetes mellitus with hyperglycemia E11.65 ; FCI current use of insulin Z79.4 ; Morbid obesity due to excess calories E66.01 ; Charcot foot due to diabetes mellitus E11.610 and Depression, unspecified depression type F32.9 IMMUNIZATIONS No Known Immunizations SOCIAL HISTORY Never Assessed REASON FOR VISIT Pt present for a 3 month diabetes follow up. SJ, RMA PLAN OF CARE Activity Details Follow Up 2 Weeks Reason:f/u neuropathy pain mgmt VITAL SIGNS Height 74 in 2018-02-22 Weight 440.7 lbs 2018-02-22 Temperature 98.5 degrees Fahrenheit 2018-02-22 Heart Rate 88 bpm 2018-02-22 Respiratory Rate 20 2018-02-22 Oximetry 96 % 2018-02-22 BMI 56.58 kg/m2 2018-02-22 Blood pressure systolic 142 mmHg 2018-02-22 Blood pressure diastolic 82 mmHg 2018-02-22 MEDICATIONS Medication Instructions Dosage Frequency Start Date End Date Duration Status Glucocard Expression Test - subcutaneously 4 times a day- 100 strips as directed Mar, 30 days Active Lisinopril 40 MG TAKE 1 TABLET BY MOUTH ONCE DAILY 30 Active Multivitamin Men Orally PRN 1 tablet Active Pen [place] 32G X 4 MM subcutaneously 3 times a day as directed 8h Sep, 90 days Active Atorvastatin Calcium 80 MG Orally Once a day 1/2 tablet 24h May, 90 days Active NovoLog 100 UNIT/ML Subcutaneous 3 times a day 50 unit at meals 8h Active MetFORMIN HCl ER 500 MG TAKE 2 TABLETS BY MOUTH TWICE DAILY Active Bydureon 2 MG Subcutaneous weekly 2 mg November, Active Ibuprofen 200 MG Orally PRN 4 tab Active Viibryd 20 mg Orally Once a day 1 tablet with food 24h Jun, 90 days Active Touguyo SoloStar 300 UNIT/ML Subcutaneous Once a day 75 units 24h Active Glucocard Expression Monitor w/Device as directed Mar, Active Gabapentin 600 MG Orally Three times a day 1 capsule 8h Aug, 30 days Active Percocet 10-325 MG Orally every 6 hrs 1 tablet as needed 6h Feb, 28 days Active RESULTS Name Result Date Reference Range A1C (IN HOUSE) 2018-02-22 A1C IN HOUSE 6.7 4.3 - 5.6 % Previous A1c 7.2 Lot [id number] Exp date 09/2019 PROCEDURES Procedure Date Ordered Result Body Site GLYCATED HEMOGLOBIN TEST Feb 22, 2018 INSTRUCTIONS MEDICATIONS ADMINISTERED No Known Medications MEDICAL (GENERAL) HISTORY Type Description Date Medical History type II diabetes Medical History charcoat Medical History depression Medical History Diabetic ulcer on bottom of foot per wound care Surgical History lap angel Surgical History Lt knee scope Surgical History circumscison revision Surgical History Lt foot Hospitalization History surgeries
--- OUTSIDE RECORDS SUMMARY | 2018-06-05 14:31 | XMS REPORT ---
Author Author CLAUDIA ARCHER [facility] Address [address] [place] [address] Care Team Providers Care Hair And Makeup Designer Name Role Phone CLAUDIA ARCHER Unavailable PROBLEMS Type Condition ICD9-CM Code REN49-WL Code Onset Dates Condition Status SNOMED Code Problem Charcot foot due to diabetes mellitus E11.610 Active 77406286 Problem Depression, unspecified depression type F32.9 Active 14965671 Problem Neuropathy involving both lower extremities G57.93 Active 925667067 Problem BMI 40.0-44.9, adult Z68.41 Active 850849481 Problem Type 2 diabetes mellitus with hyperglycemia E11.65 Active 46648551 Problem senior care current use of insulin Z79.4 Active 148927062 Problem Essential hypertension I10 Active 75126216 Problem Morbid obesity due to excess calories E66.01 Active 596563628 ALLERGIES No Information ENCOUNTERS Encounter Location Date Diagnosis [facility] [address] [id number] [place] [address] Apr [facility] [address] [id number] [place] [address] 28 Mar [facility] [address] [id number] [place] [address] 20 Mar Depression, unspecified depression type F32.9 ; Neuropathy involving both lower extremities G57.93 and Diarrhea, unspecified type R19.7 [facility] [address] [id number] [place] [address] 13 Mar Charcot foot due to diabetes mellitus E11.610 [facility] [address] [id number] [place] [address] 10 Mar Type 2 diabetes mellitus with hyperglycemia E11.65 [facility] [address] [id number] [place] [address] Feb Type 2 diabetes mellitus with hyperglycemia E11.65 ; Charcot foot due to diabetes mellitus E11.610 and BMI 50.0-59.9, adult Z68.43 [facility] [place] [address] [id number] [place] [address] Feb [facility] [place] [address] [id number] [place] [id number] Feb, [facility] [place] [address] [id number] [place] [address] Jan Depression, unspecified depression type F32.9 [facility] [place] [address] [id number] [place] [address] Jan Charcot foot due to diabetes mellitus E11.610 [facility] [address] [facility] [id number] [place] [address] Dec, [facility] [place] [address] [id number] [place] [address] Dec Charcot foot due to diabetes mellitus E11.610 [facility] [place] [address] [id number] [place] [address] Dec Neuropathy involving both lower extremities G57.93 [facility] [place] [address] [id number] [place] [address] Dec [facility] [place] [address] [id number] [place] [address] November [facility] [place] [address] [id number] [place] [address] November [facility] [place] [address] [id number] [place] [address] November [facility] [place] [address] [id number] [place] [address] November [facility] [place] [address] [id number] [place] [address] November Type 2 diabetes mellitus with hyperglycemia E11.65 ; senior care current use of insulin Z79.4 ; Morbid obesity due to excess calories E66.01 ; Charcot foot due to diabetes mellitus E11.610 ; Neuropathy involving both lower extremities G57.93 ; BMI 50.0-59.9, adult Z68.43 ; Depression, unspecified depression type F32.9 and Scrotal swelling N50.89 [facility] [place] [address] [id number] [place] [address] November [facility] [place] [address] [id number] [place] [address] Oct Charcot foot due to diabetes mellitus E11.610 [facility] [place] [address] [id number] [place] [address] Sep Type 2 diabetes mellitus with hyperglycemia E11.65 [facility] [place] [address] [id number] [place] [address] Sep Charcot foot due to diabetes mellitus E11.610 [facility] [place] [address] [id number] [place] [address] Sep [facility] [place] [address] [id number] [place] [address] Sep [facility] [place] [address] [id number] [place] [address] Sep Scrotal swelling N50.89 ; Fungal infection of the groin B35.6 and BMI 50.0-59.9, adult Z68.43 [facility] [place] [address] [id number] [place] [address] Sep Scrotal swelling N50.89 [facility] [place] [address] [id number] [place] [address] Sep Scrotal swelling N50.89 [facility] [place] [address] [id number] [place] [address] Aug Scrotal swelling N50.89 [facility] [place] [address] [id number] [place] [address] Aug Charcot foot due to diabetes mellitus E11.610 [facility] [place] [address] [id number] [place] [address] 09 Aug Type 2 diabetes mellitus with hyperglycemia E11.65 ; local intermodal truck driver current use of insulin Z79.4 ; Morbid obesity due to excess calories E66.01 ; Charcot foot due to diabetes mellitus E11.610 ; Depression, unspecified depression type F32.9 and Essential hypertension I10 [facility] [address] [facility] [id number] [place] [address] Aug, [facility] [place] [address] [id number] [place] [address] Aug Scrotal swelling N50.89 and Depression, unspecified depression type F32.9 [place] [address] [facility] [id number] [place] [address] Jul, [place] [address] [facility] [id number] [address] Jul, [facility] [address] [id number] [place] [id number] Jul, [facility] [place] [address] [id number] [place] [address] Jul Scrotal swelling N50.89 [facility] [place] [address] [id number] [place] [address] Jul [facility] [place] [address] [id number] [place] [address] Jul Scrotal swelling N50.89 [facility] [place] [address] [id number] [place] [address] Jul Charcot foot due to diabetes mellitus E11.610 [facility] [place] [address] [id number] [place] [address] Jul Depression, unspecified depression type F32.9 and BMI 50.0-59.9, adult Z68.43 [facility] [place] [address] [id number] [place] [address] Jun Depression, unspecified depression type F32.9 ; Charcot foot due to diabetes mellitus E11.610 and BMI 50.0-59.9, adult Z68.43 [facility] [place] [address] [id number] [place] [address] Jun [facility] [place] [address] [id number] [place] [address] May BMI 40.0-44.9, adult Z68.41 ; Type 2 diabetes mellitus with hyperglycemia E11.65 ; Essential hypertension I10 ; Depression, unspecified depression type F32.9 ; Charcot foot due to diabetes mellitus E11.610 and senior care current use of insulin Z79.4 [facility] [place] [address] [id number] [place] [address] May [facility] [place] [address] [id number] [place] [address] May [facility] [place] [address] [id number] [place] [address] May [facility] [place] [address] [id number] [place] [address] [id number] [place] [address] Apr, [facility] [place] [address] [id number] [place] [address] Apr [facility] [place] [address] [id number] [place] [address] Apr Type 2 diabetes mellitus with hyperglycemia E11.65 and Depression, unspecified depression type F32.9 [facility] [place] [address] [id number] [place] [address] Apr Encounter for immunization Z23 ; Type 2 diabetes mellitus with hyperglycemia E11.65 ; senior care current use of insulin Z79.4 ; Charcot foot due to diabetes mellitus E11.610 and Essential hypertension I10 [facility] [place] [address] [id number] [place] [address] Mar Essential hypertension I10 ; Charcot foot due to diabetes mellitus E11.610 and Type 2 diabetes mellitus with hyperglycemia E11.65 [facility] [place] [address] [id number] [place] [address] [id number] [place] [address] Feb, [facility] [place] [address] [id number] [place] [address] Feb Type 2 diabetes mellitus with hyperglycemia E11.65 ; Essential hypertension I10 ; senior care current use of insulin Z79.4 ; Morbid obesity due to excess calories E66.01 ; Charcot foot due to diabetes mellitus E11.610 and Depression, unspecified depression type F32.9 [facility] [place] [address] [id number] [place] [address] Jan [facility] [place] [address] [id number] [place] [address] Jan [facility] [address] [place] [address] [id number] [place] [address] Jan [facility] [address] [facility] [id number] [place] [address] Jan, [facility] [place] [address] [id number] [place] [address] Dec Charcot foot due to diabetes mellitus E11.610 [facility] [place] [address] [id number] [place] [address] November [facility] [place] [address] [id number] [place] [address] November Type 2 diabetes mellitus with hyperglycemia E11.65 ; senior care current use of insulin Z79.4 and Charcot foot due to diabetes mellitus E11.610 [facility] [place] [address] [id number] [place] [address] November Bronchitis J40 [facility] [place] [address] [id number] [place] [address] Oct Cellulitis of right lower extremity L03.115 and Charcot foot due to diabetes mellitus E11.610 [facility] [place] [address] [id number] [place] [address] Sep [facility] [address] [facility] [id number] [place] [address] Sep, [facility] [place] [address] [id number] [place] [address] 14 Sep Bronchitis J40 [facility] [address] [id number] [place] [id number] 08 Sep, 2016 [facility] [place] [address] [id number] [place] [address] 07 Sep Bronchitis J40 [facility] [place] [address] [id number] [place] [address] 02 Sep Type 2 diabetes mellitus with hyperglycemia E11.65 [facility] [place] [address] [id number] [place] [address] Sep [facility] [address] [place] [id number] [address] Aug, [facility] [place] [address] [id number] [place] [address] Aug Type 2 diabetes mellitus with hyperglycemia E11.65 ; Depression, unspecified depression type F32.9 ; Charcot foot due to diabetes mellitus E11.610 and Encounter for immunization Z23 [facility] [place] [address] [id number] [place] [address] Aug [facility] [place] [address] [id number] [place] [address] Jul Type 2 diabetes mellitus with hyperglycemia E11.65 ; senior care current use of insulin Z79.4 ; Morbid obesity due to excess calories E66.01 and Charcot foot due to diabetes mellitus E11.610 [facility] [place] [address] [id number] [place] [address] Jun Type 2 diabetes mellitus with hyperglycemia E11.65 ; senior care current use of insulin Z79.4 ; Morbid obesity due to excess calories E66.01 ; Charcot foot due to diabetes mellitus E11.610 and Encounter for immunization Z23 [facility] [address] [id number] [place] [address] Jun, [facility] [address] [id number] [address] Jun, [facility] [address] [id number] [place] [address] Jun Fever in other diseases R50.81 [facility] [place] [id number] [place] [address] May [facility] [place] [address] [id number] [place] [address] May [facility] [place] [address] [id number] [place] [address] May Type 2 diabetes mellitus with hyperglycemia E11.65 [facility] [place] [address] [id number] [place] [address] 10 May Type 2 diabetes mellitus with hyperglycemia E11.65 ; senior care current use of insulin Z79.4 ; Morbid obesity due to excess calories E66.01 ; Charcot foot due to diabetes mellitus E11.610 and Depression, unspecified depression type F32.9 IMMUNIZATIONS No Known Immunizations SOCIAL HISTORY Never Assessed REASON FOR VISIT PLAN OF CARE VITAL SIGNS MEDICATIONS Medication Instructions Dosage Frequency Start Date End Date Duration Status Percocet 10-325 MG Orally every 6 hrs 1 tablet as needed 6h 13 Mar, 2018 28 days Active RESULTS No Results PROCEDURES No Known procedures INSTRUCTIONS MEDICATIONS ADMINISTERED No Known Medications MEDICAL (GENERAL) HISTORY Type Description Date Medical History type II diabetes Medical History charcoat Medical History depression Medical History Diabetic ulcer on bottom of foot per wound care Surgical History lap angle Surgical History Lt knee scope Surgical History circumscison revision Surgical History Lt foot Hospitalization History surgeries
--- OUTSIDE RECORDS SUMMARY | 2018-06-05 14:31 | XMS REPORT ---
Author CLAUDIA Ybarra [facility] [place] Address [address] [place] [address] Care Team Providers Care Inorganic Chemistry Teacher Name Role Phone CLAUDIA ARCHER Unavailable PROBLEMS ALLERGIES No Information ENCOUNTERS IMMUNIZATIONS No Known Immunizations SOCIAL HISTORY No smoking Hx information available REASON FOR VISIT PLAN OF CARE VITAL SIGNS MEDICATIONS Unknown Medications RESULTS No Results PROCEDURES No Known procedures INSTRUCTIONS MEDICATIONS ADMINISTERED No Known Medications MEDICAL (GENERAL) HISTORY
--- OUTSIDE RECORDS SUMMARY | 2018-06-05 14:31 | XMS REPORT ---
Author Author [facility]UD[facility]ER [facility] Address [address] [place] [address] Care Team Providers Care Technical Staff Assistant Name Role Phone CLAUDIA ARCHER Unavailable PROBLEMS Type Condition ICD9-CM Code KOV85-HY Code Onset Dates Condition Status SNOMED Code Problem Charcot foot due to diabetes mellitus E11.610 Active 92209734 Problem Depression, unspecified depression type F32.9 Active 89333867 Problem Neuropathy involving both lower extremities G57.93 Active 924931918 Problem BMI 40.0-44.9, adult Z68.41 Active 721135389 Problem Type 2 diabetes mellitus with hyperglycemia E11.65 Active 75232111 Problem retirement current use of insulin Z79.4 Active 471661378 Problem Essential hypertension I10 Active 18971110 Problem Morbid obesity due to excess calories E66.01 Active 491993462 ALLERGIES No Information ENCOUNTERS Encounter Location Date [email or web address] [address] [id number] [place] [address] Apr [email or web address] [address] [id number] [place] [address] 28 Mar [email or web address] [address] [id number] [place] [address] 20 Mar Depression, unspecified depression type F32.9 ; Neuropathy involving both lower extremities G57.93 and Diarrhea, unspecified type R19.7 [email or web address] [address] [id number] [place] [address] 13 Mar Charcot foot due to diabetes mellitus E11.610 [email or web address] [address] [id number] [place] [address] 10 Mar Type 2 diabetes mellitus with hyperglycemia E11.65 [email or web address] [address] [id number] [place] [address] Feb Type 2 diabetes mellitus with hyperglycemia E11.65 ; Charcot foot due to diabetes mellitus E11.610 and BMI 50.0-59.9, adult Z68.43 [facility] [place] [address] [id number] [place] [address] Feb [facility] [place] [address] [id number] [place] [id number] Feb, [facility] [place] [address] [id number] [place] [address] Jan Depression, unspecified depression type F32.9 [facility] [place] [address] [id number] [place] [address] Jan Charcot foot due to diabetes mellitus E11.610 [facility] [address] [facility] [id number] [place] [address] Dec, [facility] [place] [address] [id number] [place] [address] Dec Charcot foot due to diabetes mellitus E11.610 [facility] [place] [address] [id number] [place] [address] Dec Neuropathy involving both lower extremities G57.93 [facility] [place] [address] [id number] [place] [address] Dec [facility] [place] [address] [id number] [place] [address] November [facility] [place] [address] [id number] [place] [address] November [facility] [place] [address] [id number] [place] [address] November [facility] [place] [address] [id number] [place] [address] November [facility] [place] [address] [id number] [place] [address] November Type 2 diabetes mellitus with hyperglycemia E11.65 ; retirement current use of insulin Z79.4 ; Morbid obesity due to excess calories E66.01 ; Charcot foot due to diabetes mellitus E11.610 ; Neuropathy involving both lower extremities G57.93 ; BMI 50.0-59.9, adult Z68.43 ; Depression, unspecified depression type F32.9 and Scrotal swelling N50.89 [facility] [place] [address] [id number] [place] [address] November [facility] [place] [address] [id number] [place] [address] Oct Charcot foot due to diabetes mellitus E11.610 [facility] [place] [address] [id number] [place] [address] Sep Type 2 diabetes mellitus with hyperglycemia E11.65 [facility] [place] [address] [id number] [place] [address] Sep Charcot foot due to diabetes mellitus E11.610 [facility] [place] [address] [id number] [place] [address] Sep [facility] [place] [address] [id number] [place] [address] Sep [facility] [place] [address] [id number] [place] [address] Sep Scrotal swelling N50.89 ; Fungal infection of the groin B35.6 and BMI 50.0-59.9, adult Z68.43 [facility] [place] [address] [id number] [place] [address] Sep Scrotal swelling N50.89 [facility] [place] [address] [id number] [place] [address] Sep Scrotal swelling N50.89 [facility] [place] [address] [id number] [place] [address] Aug Scrotal swelling N50.89 [facility] [place] [address] [id number] [place] [address] Aug Charcot foot due to diabetes mellitus E11.610 [facility] [place] [address] [id number] [place] [address] 09 Aug Type 2 diabetes mellitus with hyperglycemia E11.65 ; ocean transportation intermediary current use of insulin Z79.4 ; Morbid obesity due to excess calories E66.01 ; Charcot foot due to diabetes mellitus E11.610 ; Depression, unspecified depression type F32.9 and Essential hypertension I10 [facility] [address] [facility] [id number] [place] [address] Aug, [facility] [place] [address] [id number] [place] [address] Aug Scrotal swelling N50.89 and Depression, unspecified depression type F32.9 [place] [address] [facility] [id number] [place] [address] Jul, [place] [address] [facility] [id number] [address] Jul, [facility] [address] [id number] [place] [id number] Jul, [facility] [place] [address] [id number] [place] [address] Jul Scrotal swelling N50.89 [facility] [place] [address] [id number] [place] [address] Jul [facility] [place] [address] [id number] [place] [address] Jul Scrotal swelling N50.89 [facility] [place] [address] [id number] [place] [address] Jul Charcot foot due to diabetes mellitus E11.610 [facility] [place] [address] [id number] [place] [address] Jul Depression, unspecified depression type F32.9 and BMI 50.0-59.9, adult Z68.43 [facility] [place] [address] [id number] [place] [address] Jun Depression, unspecified depression type F32.9 ; Charcot foot due to diabetes mellitus E11.610 and BMI 50.0-59.9, adult Z68.43 [facility] [place] [address] [id number] [place] [address] Jun [facility] [place] [address] [id number] [place] [address] May BMI 40.0-44.9, adult Z68.41 ; Type 2 diabetes mellitus with hyperglycemia E11.65 ; Essential hypertension I10 ; Depression, unspecified depression type F32.9 ; Charcot foot due to diabetes mellitus E11.610 and retirement current use of insulin Z79.4 [facility] [place] [address] [id number] [place] [address] May [facility] [place] [address] [id number] [place] [address] May [facility] [place] [address] [id number] [place] [address] May [facility] [place] [address] [id number] [place] [address] [id number] [place] [address] Apr, [facility] [place] [address] [id number] [place] [address] Apr [facility] [place] [address] [id number] [place] [address] Apr Type 2 diabetes mellitus with hyperglycemia E11.65 and Depression, unspecified depression type F32.9 [facility] [place] [address] [id number] [place] [address] Apr Encounter for immunization Z23 ; Type 2 diabetes mellitus with hyperglycemia E11.65 ; retirement current use of insulin Z79.4 ; Charcot foot due to diabetes mellitus E11.610 and Essential hypertension I10 [facility] [place] [address] [id number] [place] [address] Mar Essential hypertension I10 ; Charcot foot due to diabetes mellitus E11.610 and Type 2 diabetes mellitus with hyperglycemia E11.65 [facility] [place] [address] [id number] [place] [address] [id number] [place] [address] Feb, [facility] [place] [address] [id number] [place] [address] Feb Type 2 diabetes mellitus with hyperglycemia E11.65 ; Essential hypertension I10 ; retirement current use of insulin Z79.4 ; Morbid obesity due to excess calories E66.01 ; Charcot foot due to diabetes mellitus E11.610 and Depression, unspecified depression type F32.9 [facility] [place] [address] [id number] [place] [address] Jan [facility] [place] [address] [id number] [place] [address] Jan [facility] [address] [id number] [place] [address] Jan [facility] [address] [facility] [id number] [place] [address] Jan, [facility] [place] [address] [id number] [place] [address] Dec Charcot foot due to diabetes mellitus E11.610 [facility] [place] [address] [id number] [place] [address] November [facility] [place] [address] [id number] [place] [address] November Type 2 diabetes mellitus with hyperglycemia E11.65 ; retirement current use of insulin Z79.4 and Charcot foot due to diabetes mellitus E11.610 [facility] [place] [address] [id number] [place] [address] November Bronchitis J40 [facility] [place] [address] [id number] [place] [address] Oct Cellulitis of right lower extremity L03.115 and Charcot foot due to diabetes mellitus E11.610 [facility] [place] [address] [id number] [place] [address] Sep [facility] [address] [facility] [id number] [place] [address] Sep, [facility] [place] [address] [id number] [place] [address] 14 Sep [facility]chitis J[address] [address] [id number] [place] [address] 08 Sep, 2016 [facility] [place] [address] [id number] [place] [address] 07 Sep Bronchitis J40 [facility] [place] [address] [id number] [place] [address] 02 Sep Type 2 diabetes mellitus with hyperglycemia E11.65 [facility] [place] [address] [id number] [place] [address] Sep [facility] [address] [place] [id number] [address] Aug, [facility] [place] [address] [id number] [place] [address] Aug Type 2 diabetes mellitus with hyperglycemia E11.65 ; Depression, unspecified depression type F32.9 ; Charcot foot due to diabetes mellitus E11.610 and Encounter for immunization Z23 [facility] [place] [address] [id number] [place] [address] Aug [facility] [place] [address] [id number] [place] [address] Jul Type 2 diabetes mellitus with hyperglycemia E11.65 ; retirement current use of insulin Z79.4 ; Morbid obesity due to excess calories E66.01 and Charcot foot due to diabetes mellitus E11.610 [facility] [place] [address] [id number] [place] [address] Jun Type 2 diabetes mellitus with hyperglycemia E11.65 ; retirement current use of insulin Z79.4 ; Morbid obesity due to excess calories E66.01 ; Charcot foot due to diabetes mellitus E11.610 and Encounter for immunization Z23 [facility] [address] [id number] [place] [address] Jun, [facility] [address] [id number], [place] [address] Jun, [facility] [place] [address] [id number] [place] [address] Jun Fever in other diseases R50.81 [facility] [place] [address] [id number] [place] [address] May [facility] [place] [address] [id number] [place] [address] May [facility] [place] [address] [id number] [place] [address] May Type 2 diabetes mellitus with hyperglycemia E11.65 [facility] [place] [address] [id number] [place] [address] 10 May Type 2 diabetes mellitus with hyperglycemia E11.65 ; retirement current use of insulin Z79.4 ; Morbid obesity due to excess calories E66.01 ; Charcot foot due to diabetes mellitus E11.610 and Depression, unspecified depression type F32.9 IMMUNIZATIONS No Known Immunizations SOCIAL HISTORY Never Assessed REASON FOR VISIT PALS renewal PLAN OF CARE VITAL SIGNS MEDICATIONS Medication Instructions Dosage Frequency Start Date End Date Duration Status NovoLog 100 UNIT/ML Subcutaneous 3 times a [...]
--- OUTSIDE RECORDS SUMMARY | 2018-06-05 14:32 | XMS REPORT ---
Author Author CLAUDIA ARCHER [facility] Address [address] [place] [address] Care Team Providers Care Market Development Specialist Name Role Phone CLAUDIA ARCHER Unavailable PROBLEMS Type Condition ICD9-CM Code IBC61-NW Code Onset Dates Condition Status SNOMED Code Problem Charcot foot due to diabetes mellitus E11.610 Active 45023865 Problem Depression, unspecified depression type F32.9 Active 06417607 Problem Neuropathy involving both lower extremities G57.93 Active 841114094 Problem BMI 40.0-44.9, adult Z68.41 Active 367121092 Problem Type 2 diabetes mellitus with hyperglycemia E11.65 Active 61110113 Problem halfway current use of insulin Z79.4 Active 438342678 Problem Essential hypertension I10 Active 03316532 Problem Morbid obesity due to excess calories E66.01 Active 645584154 ALLERGIES No Information ENCOUNTERS Encounter Location Date Diagnosis [facility] [address] [id number] [place] [address] Feb Type 2 diabetes mellitus with hyperglycemia E11.65 ; Charcot foot due to diabetes mellitus E11.610 and BMI 50.0-59.9, adult Z68.43 [facility] [place] [address] [id number] [place] [address] Feb [facility] [address] [facility] [id number] [place] [id number] Feb, [facility] [place] [address] [id number] [place] [address] Jan Depression, unspecified depression type F32.9 [facility] [address] [id number] [place] [address] Jan Charcot foot due to diabetes mellitus E11.610 [facility] [address] [facility] [id number] [place] [address] Dec, [facility] [place] [address] [id number] [place] [address] Dec Charcot foot due to diabetes mellitus E11.610 [facility] [place] [address] [id number] [place] [address] Dec Neuropathy involving both lower extremities G57.93 [facility] [place] [address] [id number] [place] [address] Dec [facility] [place] [address] [id number] [place] [address] November [facility] [place] [address] [id number] [place] [address] November [facility] [place] [address] [id number] [place] [address] November [facility] [place] [address] [id number] [place] [address] November [facility] [place] [address] [id number] [place] [address] November Type 2 diabetes mellitus with hyperglycemia E11.65 ; halfway current use of insulin Z79.4 ; Morbid obesity due to excess calories E66.01 ; Charcot foot due to diabetes mellitus E11.610 ; Neuropathy involving both lower extremities G57.93 ; BMI 50.0-59.9, adult Z68.43 ; Depression, unspecified depression type F32.9 and Scrotal swelling N50.89 [facility] [place] [address] [id number] [place] [address] November [facility] [place] [address] [id number] [place] [address] Oct Charcot foot due to diabetes mellitus E11.610 [facility] [place] [address] [id number] [place] [address] Sep Type 2 diabetes mellitus with hyperglycemia E11.65 [facility] [place] [address] [id number] [place] [address] Sep Charcot foot due to diabetes mellitus E11.610 [facility] [place] [address] [id number] [place] [address] Sep [facility] [address] [id number] [place] [address] Sep [facility] [place] [address] [id number] [place] [address] Sep Scrotal swelling N50.89 ; Fungal infection of the groin B35.6 and BMI 50.0-59.9, adult Z68.43 [facility] [place] [address] [id number] [place] [address] Sep Scrotal swelling N50.89 [facility] [place] [address] [id number] [place] [address] Sep Scrotal swelling N50.89 [facility] [place] [address] [id number] [place] [address] Aug Scrotal swelling N50.89 [facility] [place] [address] [id number] [place] [address] 14 Aug Charcot foot due to diabetes mellitus E11.610 [facility] [place] [address] [id number] [place] [address] 09 Aug Type 2 diabetes mellitus with hyperglycemia E11.65 ; halfway current use of insulin Z79.4 ; Morbid obesity due to excess calories E66.01 ; Charcot foot due to diabetes mellitus E11.610 ; Depression, unspecified depression type F32.9 and Essential hypertension I10 [place] [address] [address] Aug, [facility] [place] [address] [id number] [place] [address] Aug Scrotal swelling N50.89 and Depression, unspecified depression type F32.9 [place] [address] [id number] [address] Jul, [facility] [address] [address] Jul, [facility] [address] [facility] [id number] [place] [id number] Jul, [facility] [place] [address] [id number] [place] [address] Jul Scrotal swelling N50.89 [facility] [place] [address] [id number] [place] [address] Jul [facility] [place] [address] [id number] [place] [address] Jul Scrotal swelling N50.89 [facility] [place] [address] [id number] [place] [address] Jul Charcot foot due to diabetes mellitus E11.610 [facility] [place] [address] [id number] [place] [address] Jul Depression, unspecified depression type F32.9 and BMI 50.0-59.9, adult Z68.43 [facility] [place] [address] [id number] [place] [address] Jun Depression, unspecified depression type F32.9 ; Charcot foot due to diabetes mellitus E11.610 and BMI 50.0-59.9, adult Z68.43 [facility] [place] [address] [id number] [place] [address] Jun [facility] [place] [address] [id number] [place] [address] 09 May BMI 40.0-44.9, adult Z68.41 ; Type 2 diabetes mellitus with hyperglycemia E11.65 ; Essential hypertension I10 ; Depression, unspecified depression type F32.9 ; Charcot foot due to diabetes mellitus E11.610 and rock duster current use of insulin Z79.4 [facility] [place] [address] [id number] [place] [address] May [facility] [place] [address] [id number] [place] [address] May [facility] [place] [address] [id number] [place] [address] May [facility] [place] [address] [id number] [place] [address] Apr [place] [address] [facility] [id number] [place] [address] Apr, [facility] [address] [id number] [place] [address] Apr [facility] [place] [address] [id number] [place] [address] Apr Type 2 diabetes mellitus with hyperglycemia E11.65 and Depression, unspecified depression type F32.9 [facility] [place] [address] [id number] [place] [address] Apr Encounter for immunization Z23 ; Type 2 diabetes mellitus with hyperglycemia E11.65 ; rock duster current use of insulin Z79.4 ; Charcot foot due to diabetes mellitus E11.610 and Essential hypertension I10 [facility] [place] [address] [id number] [place] [address] Mar Essential hypertension I10 ; Charcot foot due to diabetes mellitus E11.610 and Type 2 diabetes mellitus with hyperglycemia E11.65 [facility] [place] [address] [id number] [place] [address] Mar [place] [address] [facility] [id number] [place] [address] Feb, [facility] [place] [address] [id number] [place] [address] Feb Type 2 diabetes mellitus with hyperglycemia E11.65 ; Essential hypertension I10 ; rock duster current use of insulin Z79.4 ; Morbid obesity due to excess calories E66.01 ; Charcot foot due to diabetes mellitus E11.610 and Depression, unspecified depression type F32.9 [facility] [place] [address] [id number] [place] [address] Jan [facility] [place] [address] [id number] [place] [address] Jan [facility] [place] [address] [id number] [place] [address] Jan [place] [address] [facility] [id number] [place] [address] Jan, [facility] [place] [address] [id number] [place] [address] Dec Charcot foot due to diabetes mellitus E11.610 [facility] [place] [address] [id number] [place] [address] November [facility] [place] [address] [id number] [place] [address] November Type 2 diabetes mellitus with hyperglycemia E11.65 ; rock duster current use of insulin Z79.4 and Charcot foot due to diabetes mellitus E11.610 [facility] [place] [address] [id number] [place] [address] November Bronchitis J40 [facility] [place] [address] [id number] [place] [address] Oct Cellulitis of right lower extremity L03.115 and Charcot foot due to diabetes mellitus E11.610 [facility] [place] [address] [id number] [place] [address] Sep [facility] [address] [facility] [id number] [place] [address] Sep, [facility] [place] [address] [id number] [place] [address] Sep Bronchitis J40 [facility] [address] [id number] [place] [id number] Sep, [facility] [place] [address] [id number] [place] [address] Sep Bronchitis J40 [facility] [place] [address] [id number] [place] [address] Sep Type 2 diabetes mellitus with hyperglycemia E11.65 [facility] [place] [address] [id number] [place] [address] Sep [facility] [address] [facility] [id number] [place] [address] Aug, [facility] [place] [address] [id number] [place] [address] Aug Type 2 diabetes mellitus with hyperglycemia E11.65 ; Depression, unspecified depression type F32.9 ; Charcot foot due to diabetes mellitus E11.610 and Encounter for immunization Z23 [facility] [place] [address] [id number] [place] [address] Aug [facility] [place] [address] [id number] [place] [address] Jul Type 2 diabetes mellitus with hyperglycemia E11.65 ; rock duster current use of insulin Z79.4 ; Morbid obesity due to excess calories E66.01 and Charcot foot due to diabetes mellitus E11.610 [facility] [place] [address] [id number] [place] [address] Jun Type 2 diabetes mellitus with hyperglycemia E11.65 ; halfway current use of insulin Z79.4 ; Morbid obesity due to excess calories E66.01 ; Charcot foot due to diabetes mellitus E11.610 and Encounter for immunization Z23 [place] [address] [place] [id number] [address] Jun, [place] [address] [place] [address] [id number], [place] [address] Jun, [facility] [place] [address] [id number] [place] [address] Jun Fever in other diseases R50.81 [facility] [place] [address] [id number] [place] [address] May [facility] [place] [address] [id number] [place] [address] May [facility] [place] [address] [id number] [place] [address] May Type 2 diabetes mellitus with hyperglycemia E11.65 [facility] [place] [address] [id number] [place] [address] May Type 2 diabetes mellitus with hyperglycemia E11.65 ; halfway current use of insulin Z79.4 ; Morbid obesity due to excess calories E66.01 ; Charcot foot due to diabetes mellitus E11.610 and Depression, unspecified depression type F32.9 IMMUNIZATIONS No Known Immunizations SOCIAL HISTORY Never Assessed REASON FOR VISIT PALS PLAN OF CARE VITAL SIGNS MEDICATIONS Medication Instructions Dosage Frequency Start Date End Date Duration Status Viibryd 20 mg Orally Once a day 1 tablet with food 24h Jun, 90 days Active RESULTS No Results PROCEDURES [...]
--- OUTSIDE RECORDS SUMMARY | 2018-06-05 14:32 | XMS REPORT ---
Author Author CLAUDIA ARCHER [facility] Address [address] [place] [address] Care Team Providers Care Candy Roller Name Role Phone CLAUDIA ARCHER Unavailable PROBLEMS Type Condition ICD9-CM Code BPV88-ST Code Onset Dates Condition Status SNOMED Code Problem Charcot foot due to diabetes mellitus E11.610 Active 87637686 Problem Depression, unspecified depression type F32.9 Active 18226900 Problem Neuropathy involving both lower extremities G57.93 Active 783323020 Problem BMI 40.0-44.9, adult Z68.41 Active 450007167 Problem Type 2 diabetes mellitus with hyperglycemia E11.65 Active 56079561 Problem FCI current use of insulin Z79.4 Active 359175648 Problem Essential hypertension I10 Active 34307528 Problem Morbid obesity due to excess calories E66.01 Active 903544536 ALLERGIES No Information ENCOUNTERS Encounter Location Date Diagnosis [facility] [address] [id number] [place] [address] Mar Charcot foot due to diabetes mellitus E11.610 [facility] Conjunct [address] [id number] [place] [address] Mar Type 2 diabetes mellitus with hyperglycemia E11.65 [facility] [address] [id number] [place] [address] 16 Feb Type 2 diabetes mellitus with hyperglycemia E11.65 ; Charcot foot due to diabetes mellitus E11.610 and BMI 50.0-59.9, adult Z68.43 [facility] [address] [id number] [place] [address] Feb [facility] [place] [address] [facility] [id number] [place] [id number] Feb, [facility] [address] [id number] [place] [address] Jan Depression, unspecified depression type F32.9 [facility] [place] [address] [id number] [place] [address] Jan Charcot foot due to diabetes mellitus E11.610 [facility] [address] [facility] [id number] [place] [address] Dec, [facility] [place] [address] [id number] [place] [address] Dec Charcot foot due to diabetes mellitus E11.610 [facility] [place] [address] [id number] [place] [address] Dec Neuropathy involving both lower extremities G57.93 [facility] [place] [address] [id number] [place] [address] Dec [facility] [place] [address] [id number] [place] [address] November [facility] [place] [address] [id number] [place] [address] November [facility] [place] [address] [id number] [place] [address] November [facility] [place] [address] [id number] [place] [address] November [facility] [place] [address] [id number] [place] [address] November Type 2 diabetes mellitus with hyperglycemia E11.65 ; keno terminal operator current use of insulin Z79.4 ; Morbid obesity due to excess calories E66.01 ; Charcot foot due to diabetes mellitus E11.610 ; Neuropathy involving both lower extremities G57.93 ; BMI 50.0-59.9, adult Z68.43 ; Depression, unspecified depression type F32.9 and Scrotal swelling N50.89 [facility] [place] [address] [id number] [place] [address] November [facility] [place] [address] [id number] [place] [address] Oct Charcot foot due to diabetes mellitus E11.610 [facility] [place] [address] [id number] [place] [address] Sep Type 2 diabetes mellitus with hyperglycemia E11.65 [facility] [place] [address] [id number] [place] [address] Sep Charcot foot due to diabetes mellitus E11.610 [facility] [place] [address] [id number] [place] [address] Sep [facility] [place] [address] [id number] [place] [address] Sep [facility] [place] [address] [id number] [place] [address] Sep Scrotal swelling N50.89 ; Fungal infection of the groin B35.6 and BMI 50.0-59.9, adult Z68.43 [facility] [place] [address] [id number] [place] [address] Sep Scrotal swelling N50.89 [facility] [place] [address] [id number] [place] [address] Sep Scrotal swelling N50.89 [facility] [place] [address] [id number] [place] [address] Aug Scrotal swelling N50.89 [facility] [place] [address] [id number] [place] [address] 14 Aug Charcot foot due to diabetes mellitus E11.610 [facility] [address] [id number] [place] [address] 09 Aug Type 2 diabetes mellitus with hyperglycemia E11.65 ; FCI current use of insulin Z79.4 ; Morbid obesity due to excess calories E66.01 ; Charcot foot due to diabetes mellitus E11.610 ; Depression, unspecified depression type F32.9 and Essential hypertension I10 [facility] [place] [address] [facility] [id number] [place] [address] 07 Aug, 2017 [facility] [address] [id number] [place] [address] Aug Scrotal swelling N50.89 and Depression, unspecified depression type F32.9 [facility] [place] [address] [facility] [id number] [place] [address] Jul, [facility] [address] [facility] [id number] [place] [address] Jul, [facility] GARC[place] [facility] [id number] [place] [id number] Jul, [facility] [place] [address] [id number] [place] [address] Jul Scrotal swelling N50.89 [facility] [place] [address] [id number] [place] [address] Jul [facility]OSPITALWunderlich Securities [place] [address] [id number] [place] [address] Jul Scrotal swelling N50.89 [facility] [place] [address] [id number] [place] [address] Jul Charcot foot due to diabetes mellitus E11.610 [facility]ITALFilmasterAGRAWAL [address] [id number] [place] [address] Jul Depression, unspecified depression type F32.9 and BMI 50.0-59.9, adult Z68.43 [facility]ITALWunderlich [facility] [place] [address] [id number] [place] [address] Jun Depression, unspecified depression type F32.9 ; Charcot foot due to diabetes mellitus E11.610 and BMI 50.0-59.9, adult Z68.43 [facility]ITALWunder[facility] [place] [address] [id number] [place] [address] Jun [facility]OSPITALYi Ji Electrical ApplianceONS [address] [id number] [place] [address] 09 May BMI 40.0-44.9, adult Z68.41 ; Type 2 diabetes mellitus with hyperglycemia E11.65 ; Essential hypertension I10 ; Depression, unspecified depression type F32.9 ; Charcot foot due to diabetes mellitus E11.610 and FCI current use of insulin Z79.4 [facility]OSPITALYi Ji Electrical ApplianceONS [address] [id number] [place] [address] May [facility] [place] [address] [id number] [place] [address] May [facility] [place] [address] [id number] [place] [address] May [facility] [place] [address] [id number] [place] [address] Apr [place] [address] [facility] [id number] [place] [address] Apr, [facility] [place] [address] [id number] [place] [address] Apr [facility] [place] [address] [id number] [place] [address] Apr Type 2 diabetes mellitus with hyperglycemia E11.65 and Depression, unspecified depression type F32.9 [facility] [place] [address] [id number] [place] [address] Apr Encounter for immunization Z23 ; Type 2 diabetes mellitus with hyperglycemia E11.65 ; FCI current use of insulin Z79.4 ; Charcot foot due to diabetes mellitus E11.610 and Essential hypertension I10 [facility] [place] [address] [id number] [place] [address] Mar Essential hypertension I10 ; Charcot foot due to diabetes mellitus E11.610 and Type 2 diabetes mellitus with hyperglycemia E11.65 [facility] [place] [address] [id number] [place] [address] Mar [place] [address] [facility] [id number] [place] [address] Feb, [facility] WARRENA[place] [address] [id number] [place] [address] Feb Type 2 diabetes mellitus with hyperglycemia E11.65 ; Essential hypertension I10 ; FCI current use of insulin Z79.4 ; Morbid obesity due to excess calories E66.01 ; Charcot foot due to diabetes mellitus E11.610 and Depression, unspecified depression type F32.9 [facility] [place] [address] [id number] [place] [address] Jan [facility] [place] [address] [id number] [place] [address] Jan [facility] [place] [address] [id number] [place] [address] Jan [place] [address] [facility] [id number] [place] [address] Jan, [facility] [place] [address] [id number] [place] [address] Dec Charcot foot due to diabetes mellitus E11.610 [facility] [place] [address] [id number] [place] [address] November [facility] [place] [address] [id number] [place] [address] November Type 2 diabetes mellitus with hyperglycemia E11.65 ; FCI current use of insulin Z79.4 and Charcot foot due to diabetes mellitus E11.610 [facility] [place] [address] [id number] [place] [address] November Bronchitis J40 [facility]ALSELuz [place] [address] [id number] [place] [address] Oct Cellulitis of right lower extremity L03.115 and Charcot foot due to diabetes mellitus E11.610 [facility] [place] [address] [id number] [place] [address] Sep [place] [address] [facility] [id number] [place] [address] Sep, [facility]ALSELuz [place] [address] [id number] [place] [address] Sep Bronchitis J40 [facility] HOSPITALVINCE GARCIA [facility] [id number] [place] [address] Sep, [facility] [place] [address] [id number] [place] [address] Sep Bronchitis J40 [facility]ALSELuz [place] [address] [id number] [place] [address] Sep Type 2 diabetes mellitus with hyperglycemia E11.65 [facility] [place] [address] [id number] [place] [address] Sep [place] [address] [facility] [id number] [place] [address] Aug, [facility] [place] [address] [id number] [place] [address] Aug Type 2 diabetes mellitus with hyperglycemia E11.65 ; Depression, unspecified depression type F32.9 ; Charcot foot due to diabetes mellitus E11.610 and Encounter for immunization Z23 [facility] [place] [address] [id number] [place] [address] Aug [facility] [place] [address] [id number] [place] [address] Jul Type 2 diabetes mellitus with hyperglycemia E11.65 ; keno terminal operator current use of insulin Z79.4 ; Morbid obesity due to excess calories E66.01 and Charcot foot due to diabetes mellitus E11.610 [facility] [place] [address] [id number] [place] [address] Jun Type 2 diabetes mellitus with hyperglycemia E11.65 ; keno terminal operator current use of insulin Z79.4 ; Morbid obesity due to excess calories E66.01 ; Charcot foot due to diabetes mellitus E11.610 and Encounter for immunization Z23 [place] [address] [place] [id number] [place] [address] Jun, [place] [address] [facility] [id number] [address] Jun, [facility]ITAL[facility]underlich [facility] [place] [address] [id number] [place] [address] Jun Fever in other diseases R50.81 [facility]ALSEWunderlich Securities [place] [address] [id number] [place] [address] May [facility]OS[facility]ITALTerapio [place] [address] [id number] [place] [address] May [facility]ITALW[facility] [place] [address] [id number] [place] [address] May Type 2 diabetes mellitus with hyperglycemia E11.65 [facility] [place] [address] [id number] [place] [address] May Type 2 diabetes mellitus with hyperglycemia E11.65 ; keno terminal operator current use of insulin Z79.4 ; Morbid obesity due to excess calories E66.01 ; Charcot foot due to diabetes mellitus E11.610 and Depression, unspecified depression type F32.9 IMMUNIZATIONS No Known Immunizations SOCIAL HISTORY Never Assessed REASON FOR VISIT Pals order ready for pick-up PLAN OF CARE VITAL SIGNS MEDICATIONS Unknown [...]
--- OUTSIDE RECORDS SUMMARY | 2018-06-05 14:32 | XMS REPORT ---
Author Author CLAUDIA ARCHER [facility] Address [address] [place] [address] Care Team Providers Care Vmware Administrator Name Role Phone CLAUDIA ARCHER Unavailable PROBLEMS Type Condition ICD9-CM Code YSK80-VP Code Onset Dates Condition Status SNOMED Code Problem Charcot foot due to diabetes mellitus E11.610 Active 21109819 Problem Depression, unspecified depression type F32.9 Active 45422204 Problem Neuropathy involving both lower extremities G57.93 Active 447261052 Problem BMI 40.0-44.9, adult Z68.41 Active 446698597 Problem Type 2 diabetes mellitus with hyperglycemia E11.65 Active 74629494 Problem [facility] current use of insulin Z79.4 Active 637672950 Problem Essential hypertension I10 Active 76166935 Problem Morbid obesity due to excess calories E66.01 Active [id number] ALLERGIES No Information ENCOUNTERS Encounter Location Date Diagnosis [facility] [address] [id number] [place] [address] Mar Charcot foot due to diabetes mellitus E11.610 [facility] [address] [id number] [place] [address] Mar Type 2 diabetes mellitus with hyperglycemia E11.65 [facility] [address] [id number] [place] [address] 16 Feb Type 2 diabetes mellitus with hyperglycemia E11.65 ; Charcot foot due to diabetes mellitus E11.610 and BMI 50.0-59.9, adult Z68.43 [facility] [address] [id number] [place] [address] Feb [facility] [place] [address] [facility] [id number] [place] [id number] Feb, [facility] [address] [id number] [place] [address] Jan Depression, unspecified depression type F32.9 [facility] [place] [address] [id number] [place] [address] Jan Charcot foot due to diabetes mellitus E11.610 [facility] [address] [facility] [id number] [place] [address] Dec, [facility] [place] [address] [id number] [place] [address] Dec Charcot foot due to diabetes mellitus E11.610 [facility] [place] [address] [id number] [place] [address] Dec Neuropathy involving both lower extremities G57.93 [facility] [place] [address] [id number] [place] [address] Dec [facility] [place] [address] [id number] [place] [address] November [facility] [place] [address] [id number] [place] [address] November [facility] [place] [address] [id number] [place] [address] November [facility] [place] [address] [id number] [place] [address] November [facility] [place] [address] [id number] [place] [address] November Type 2 diabetes mellitus with hyperglycemia E11.65 ; 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.4 ; Morbid obesity due to excess calories E66.01 ; Charcot foot due to diabetes mellitus E11.610 ; Neuropathy involving both lower extremities G57.93 ; BMI 50.0-59.9, adult Z68.43 ; Depression, unspecified depression type F32.9 and Scrotal swelling N50.89 [facility] [place] [address] [id number] [place] [address] November [facility] [place] [address] [id number] [place] [address] Oct Charcot foot due to diabetes mellitus E11.610 [facility] [place] [address] [id number] [place] [address] Sep Type 2 diabetes mellitus with hyperglycemia E11.65 [facility] [place] [address] [id number] [place] [address] Sep Charcot foot due to diabetes mellitus E11.610 [facility] [place] [address] [id number] [place] [address] Sep [facility] [place] [address] [id number] [place] [address] Sep [facility] [place] [address] [id number] [place] [address] Sep Scrotal swelling N50.89 ; Fungal infection of the groin B35.6 and BMI 50.0-59.9, adult Z68.43 [facility] [place] [address] [id number] [place] [address] Sep Scrotal swelling N50.89 [facility] [place] [address] [id number] [place] [address] Sep Scrotal swelling N50.89 [facility] [place] [address] [id number] [place] [address] Aug Scrotal swelling N50.89 [facility] [place] [address] [id number] [place] [address] 14 Aug Charcot foot due to diabetes mellitus E11.610 [facility] [address] [id number] [place] [address] 09 Aug Type 2 diabetes mellitus with hyperglycemia E11.65 ; [facility] current use of insulin Z79.4 ; Morbid obesity due to excess calories E66.01 ; Charcot foot due to diabetes mellitus E11.610 ; Depression, unspecified depression type F32.9 and Essential hypertension I10 [facility] [address] [facility] [id number] [place] [address] 07 Aug, 2017 [facility] [address] [id number] [place] [address] Aug Scrotal swelling N50.89 and Depression, unspecified depression type F32.9 [facility] [address] [facility] [id number] [place] [address] Jul, [facility] [address] [facility] [id number] [place] [address] Jul, [facility] GARCIA [facility] [id number] [place] [id number] Jul, [facility] [place] [address] [id number] [place] [address] Jul Scrotal swelling N50.89 [facility] [place] [address] [id number] [place] [address] Jul [facility]Mark[facility] [place] [address] [id number] [place] [address] Jul Scrotal swelling N50.89 [facility] [place] [address] [id number] [place] [address] Jul Charcot foot due to diabetes mellitus E11.610 [facility] [address] [id number] [place] [address] Jul Depression, unspecified depression type F32.9 and BMI 50.0-59.9, adult Z68.43 [facility]Mark[facility] [place] [address] [id number] [place] [address] Jun Depression, unspecified depression type F32.9 ; Charcot foot due to diabetes mellitus E11.610 and BMI 50.0-59.9, adult Z68.43 [facility]Mark[facility] [place] [address] [id number] [place] [address] Jun [facility]ENTERArizona [employer] [address] [id number] [place] [address] 09 May BMI 40.0-44.9, adult Z68.41 ; Type 2 diabetes mellitus with hyperglycemia E11.65 ; Essential hypertension I10 ; Depression, unspecified depression type F32.9 ; Charcot foot due to diabetes mellitus E11.610 and [facility] current use of insulin Z79.4 [facility]ENTERArizona [employer]ONS [address] [id number] [place] [address] May [facility] [place] [address] [id number] [place] [address] May [facility] [place] [address] [id number] [place] [address] May [facility] [place] [address] [id number] [place] [address] Apr [place] [address] [facility] [id number] [place] [address] Apr, [facility] [place] [address] [id number] [place] [address] Apr [facility] [place] [address] [id number] [place] [address] Apr Type 2 diabetes mellitus with hyperglycemia E11.65 and Depression, unspecified depression type F32.9 [facility] [place] [address] [id number] [place] [address] Apr Encounter for immunization Z23 ; Type 2 diabetes mellitus with hyperglycemia E11.65 ; [facility] current use of insulin Z79.4 ; Charcot foot due to diabetes mellitus E11.610 and Essential hypertension I10 [facility] [place] [address] [id number] [place] [address] Mar Essential hypertension I10 ; Charcot foot due to diabetes mellitus E11.610 and Type 2 diabetes mellitus with hyperglycemia E11.65 [facility] [place] [address] [id number] [place] [address] Mar [place] [address] [facility] [id number] [place] [address] Feb, [facility] WARRENAGRAWAL [address] [id number] [place] [address] Feb Type 2 diabetes mellitus with hyperglycemia E11.65 ; Essential hypertension I10 ; [facility] current use of insulin Z79.4 ; Morbid obesity due to excess calories E66.01 ; Charcot foot due to diabetes mellitus E11.610 and Depression, unspecified depression type F32.9 [facility] [place] [address] [id number] [place] [address] Jan [facility] [place] [address] [id number] [place] [address] Jan [facility] [place] [address] [id number] [place] [address] Jan [place] [address] [facility] [id number] [place] [address] Jan, [facility] [place] [address] [id number] [place] [address] Dec Charcot foot due to diabetes mellitus E11.610 [facility] [place] [address] [id number] [place] [address] November [facility] [place] [address] [id number] [place] [address] November Type 2 diabetes mellitus with hyperglycemia E11.65 ; [facility] current use of insulin Z79.4 and Charcot foot due to diabetes mellitus E11.610 [facility] [place] [address] [id number] [place] [address] November Bronchitis J40 [facility]ENTERSELuz [place] [address] [id number] [place] [address] Oct Cellulitis of right lower extremity L03.115 and Charcot foot due to diabetes mellitus E11.610 [facility] [place] [address] [id number] [place] [address] Sep [place] [address] [facility] [id number] [place] [address] Sep, [facility]SEL[facility] [place] [address] [id number] [place] [address] Sep Bronchitis J40 [facility]ENTERVINCE GARCIA [facility] [id number] [place] [address] Sep, [facility] [place] [address] [id number] [place] [address] Sep Bronchitis J40 [facility]ENTERSELuz [place] [address] [id number] [place] [address] Sep Type 2 diabetes mellitus with hyperglycemia E11.65 [facility] [place] [address] [id number] [place] [address] Sep [place] [address] [facility] [id number] [place] [address] Aug, [facility] [place] [address] [id number] [place] [address] Aug Type 2 diabetes mellitus with hyperglycemia E11.65 ; Depression, unspecified depression type F32.9 ; Charcot foot due to diabetes mellitus E11.610 and Encounter for immunization Z23 [facility] [place] [address] [id number] [place] [address] Aug [facility] [place] [address] [id number] [place] [address] Jul Type 2 diabetes mellitus with hyperglycemia E11.65 ; 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.4 ; Morbid obesity due to excess calories E66.01 and Charcot foot due to diabetes mellitus E11.610 [facility] [place] [address] [id number] [place] [address] Jun Type 2 diabetes mellitus with hyperglycemia E11.65 ; 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.4 ; Morbid obesity due to excess calories E66.01 ; Charcot foot due to diabetes mellitus E11.610 and Encounter for immunization Z23 [place] [address] [place] [id number] [place] [address] Jun, [place] [address] [facility] [id number] [place] [address] Jun, [facility] [place] [address] [id number] [place] [address] Jun Fever in other diseases R50.81 [facility]ENTERSEMarkMonitor [place] [address] [id number] [place] [address] May [facility]ENTERPuzzleSocial [place] [address] [id number] [place] [address] May [facility] [place] [address] [id number] [place] [address] May Type 2 diabetes mellitus with hyperglycemia E11.65 [facility] [place] [address] [id number] [place] [address] May Type 2 diabetes mellitus with hyperglycemia E11.65 ; 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.4 ; Morbid obesity due to excess calories E66.01 ; Charcot foot due to diabetes mellitus E11.610 and Depression, unspecified depression type F32.9 IMMUNIZATIONS No Known Immunizations SOCIAL HISTORY Never Assessed REASON FOR VISIT PALS received PLAN OF CARE VITAL SIGNS MEDICATIONS Unknown [...]
--- OUTSIDE RECORDS SUMMARY | 2018-06-05 14:32 | XMS REPORT ---
Author Author CLAUDIA ARCHER [facility] Address [address] [place] [address] Care Team Providers Care Nurse Practical Name Role Phone CLAUDIA ARCHER Unavailable PROBLEMS Type Condition ICD9-CM Code OTT34-ZL Code Onset Dates Condition Status SNOMED Code Problem Charcot foot due to diabetes mellitus E11.610 Active 80865009 Problem Depression, unspecified depression type F32.9 Active 94729798 Problem Neuropathy involving both lower extremities G57.93 Active 887868528 Problem BMI 40.0-44.9, adult Z68.41 Active 348627629 Problem Type 2 diabetes mellitus with hyperglycemia E11.65 Active 46879475 Problem 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 Active 545989012 Problem Essential hypertension I10 Active 54818253 Problem Morbid obesity due to excess calories E66.01 Active 790263577 ALLERGIES No Information ENCOUNTERS Encounter Location Date Diagnosis [facility] [address] [id number] [place] [address] Feb Type 2 diabetes mellitus with hyperglycemia E11.65 ; Charcot foot due to diabetes mellitus E11.610 and BMI 50.0-59.9, adult Z68.43 [facility] [place] [address] [id number] [place] [address] Feb [facility] [address] [id number] [place] [id number] Feb, [facility] [place] [address] [id number] [place] [address] Jan Depression, unspecified depression type F32.9 [facility] [address] [id number] [place] [address] Jan Charcot foot due to diabetes mellitus E11.610 [facility] [address] [facility] [id number] [place] [address] Dec, [facility] [place] [address] [id number] [place] [address] Dec Charcot foot due to diabetes mellitus E11.610 [facility] [place] [address] [id number] [place] [address] Dec Neuropathy involving both lower extremities G57.93 [facility] [place] [address] [id number] [place] [address] Dec [facility] [place] [address] [id number] [place] [address] November [facility] [place] [address] [id number] [place] [address] November [facility] [place] [address] [id number] [place] [address] November [facility] [place] [address] [id number] [place] [address] November [facility] [place] [address] [id number] [place] [address] November Type 2 diabetes mellitus with hyperglycemia E11.65 ; 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 ; Morbid obesity due to excess calories E66.01 ; Charcot foot due to diabetes mellitus E11.610 ; Neuropathy involving both lower extremities G57.93 ; BMI 50.0-59.9, adult Z68.43 ; Depression, unspecified depression type F32.9 and Scrotal swelling N50.89 [facility] [place] [address] [id number] [place] [address] November [facility] [place] [address] [id number] [place] [address] Oct Charcot foot due to diabetes mellitus E11.610 [facility] [place] [address] [id number] [place] [address] Sep Type 2 diabetes mellitus with hyperglycemia E11.65 [facility] [place] [address] [id number] [place] [address] Sep Charcot foot due to diabetes mellitus E11.610 [facility] [place] [address] [id number] [place] [address] Sep [facility] [place] [address] [id number] [place] [address] Sep [facility] [place] [address] [id number] [place] [address] Sep Scrotal swelling N50.89 ; Fungal infection of the groin B35.6 and BMI 50.0-59.9, adult Z68.43 [facility] [place] [address] [id number] [place] [address] Sep Scrotal swelling N50.89 [facility] [place] [address] [id number] [place] [address] Sep Scrotal swelling N50.89 [facility] [place] [address] [id number] [place] [address] Aug Scrotal swelling N50.89 [facility] [place] [address] [id number] [place] [address] 14 Aug Charcot foot due to diabetes mellitus E11.610 [facility] [place] [address] [id number] [place] [address] 09 Aug Type 2 diabetes mellitus with hyperglycemia E11.65 ; 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 ; Morbid obesity due to excess calories E66.01 ; Charcot foot due to diabetes mellitus E11.610 ; Depression, unspecified depression type F32.9 and Essential hypertension I10 [address] [address] Aug, [facility] [place] [address] [id number] [place] [address] Aug Scrotal swelling N50.89 and Depression, unspecified depression type F32.9 [address] [id number] [address] Jul, [facility] [address] [address] Jul, [facility] [address] [facility] [id number] [place] [address] Jul, [facility] [place] [address] [id number] [place] [address] Jul Scrotal swelling N50.89 [facility] [place] [address] [id number] [place] [address] Jul [facility] [place] [address] [id number] [place] [address] Jul Scrotal swelling N50.89 [facility] [place] [address] [id number] [place] [address] Jul Charcot foot due to diabetes mellitus E11.610 [facility] [place] [address] [id number] [place] [address] Jul Depression, unspecified depression type F32.9 and BMI 50.0-59.9, adult Z68.43 [facility] [place] [address] [id number] [place] [address] Jun Depression, unspecified depression type F32.9 ; Charcot foot due to diabetes mellitus E11.610 and BMI 50.0-59.9, adult Z68.43 [facility] [place] [address] [id number] [place] [address] Jun [facility] [place] [address] [id number] [place] [address] 09 May BMI 40.0-44.9, adult Z68.41 ; Type 2 diabetes mellitus with hyperglycemia E11.65 ; Essential hypertension I10 ; Depression, unspecified depression type F32.9 ; Charcot foot due to diabetes mellitus E11.610 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 [facility] [place] [address] [id number] [place] [address] May [facility] [place] [address] [id number] [place] [address] May [facility] [place] [address] [id number] [place] [address] May [facility] [place] [address] [id number] [place] [address] Apr [address] [facility] [id number] [place] [address] Apr, [facility] [address] [id number] [place] [address] Apr [facility] [place] [address] [id number] [place] [address] Apr Type 2 diabetes mellitus with hyperglycemia E11.65 and Depression, unspecified depression type F32.9 [facility] [place] [address] [id number] [place] [address] Apr Encounter for immunization Z23 ; Type 2 diabetes mellitus with hyperglycemia E11.65 ; 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 ; Charcot foot due to diabetes mellitus E11.610 and Essential hypertension I10 [facility] [place] [address] [id number] [place] [address] Mar Essential hypertension I10 ; Charcot foot due to diabetes mellitus E11.610 and Type 2 diabetes mellitus with hyperglycemia E11.65 [facility] [place] [address] [id number] [place] [address] Mar [address] [facility] [id number] [place] [address] Feb, [facility] [place] [address] [id number] [place] [address] Feb Type 2 diabetes mellitus with hyperglycemia E11.65 ; Essential hypertension I10 ; 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 ; Morbid obesity due to excess calories E66.01 ; Charcot foot due to diabetes mellitus E11.610 and Depression, unspecified depression type F32.9 [facility] [place] [address] [id number] [place] [address] Jan [facility] [place] [address] [id number] [place] [address] Jan [facility] [place] [address] [id number] [place] [address] [address] [facility] [id number] [place] [address] Jan, [facility] [place] [address] [id number] [place] [address] Dec Charcot foot due to diabetes mellitus E11.610 [facility] [place] [address] [id number] [place] [address] November [facility] [place] [address] [id number] [place] [address] November Type 2 diabetes mellitus with hyperglycemia E11.65 ; 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 [address] [facility] [id number] [place] [address] Sep, [facility] [place] [address] [id number] [place] [address] Sep Bronchitis J40 [facility] [address] [id number] [place] [address] Sep, [facility] [place] [address] [id number] [place] [address] Sep Bronchitis J40 [facility] [place] [address] [id number] [place] [address] Sep Type 2 diabetes mellitus with hyperglycemia E11.65 [facility] [place] [address] [id number] [place] [address] Sep [facility] [address] [facility] [id number] [place] [address] Aug, [facility] [place] [address] [id number] [place] [address] Aug Type 2 diabetes mellitus with hyperglycemia E11.65 ; Depression, unspecified depression type F32.9 ; Charcot foot due to diabetes mellitus E11.610 and Encounter for immunization Z23 [facility] [place] [address] [id number] [place] [address] Aug [facility] [place] [address] [id number] [place] [address] Jul Type 2 diabetes mellitus with hyperglycemia E11.65 ; 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 ; Morbid obesity due to excess calories E66.01 and Charcot foot due to diabetes mellitus E11.610 [facility] [place] [address] [id number] [place] [address] Jun Type 2 diabetes mellitus with hyperglycemia E11.65 ; 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 ; Morbid obesity due to excess calories E66.01 ; Charcot foot due to diabetes mellitus E11.610 and Encounter for immunization Z23 [address] [id number] [address] Jun, [address] [id number] [address] Jun, [facility] [place] [address] [id number] [place] [address] Jun Fever in other diseases R50.81 [facility] [place] [address] [id number] [place] [address] May [facility] [place] [address] [id number] [place] [address] May [facility] [place] [address] [id number] [place] [address] May Type 2 diabetes mellitus with hyperglycemia E11.65 [facility] [place] [address] [id number] [place] [address] May Type 2 diabetes mellitus with hyperglycemia E11.65 ; 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 ; Morbid obesity due to excess calories E66.01 ; Charcot foot due to diabetes mellitus E11.610 and Depression, unspecified depression type F32.9 IMMUNIZATIONS No Known Immunizations SOCIAL HISTORY Never Assessed REASON FOR VISIT Refill request PLAN OF CARE VITAL SIGNS MEDICATIONS Medication Instructions Dosage Frequency Start Date End Date Duration Status Percocet 10-325 MG Orally every 6 hrs 1 tablet as needed 6h Jan, 28 days Active RESULTS No Results PROCEDURES [...]
--- OUTSIDE RECORDS SUMMARY | 2018-06-05 14:33 | XMS REPORT ---
Author Author CLAUDIA ARCHER [facility] Address [address] [place] [address] Care Team Providers Care Laydown Machine Operator Name Role Phone CLAUDIA ARCHER Unavailable PROBLEMS Type Condition ICD9-CM Code XQK36-QS Code Onset Dates Condition Status SNOMED Code Problem Charcot foot due to diabetes mellitus E11.610 Active 38933373 Problem Depression, unspecified depression type F32.9 Active 06215455 Problem Neuropathy involving both lower extremities G57.93 Active 595092440 Problem BMI 40.0-44.9, adult Z68.41 Active 503620018 Problem Type 2 diabetes mellitus with hyperglycemia E11.65 Active 77034039 Problem group home current use of insulin Z79.4 Active 431593601 Problem Essential hypertension I10 Active 72749955 Problem Morbid obesity due to excess calories E66.01 Active [id number] ALLERGIES No Information ENCOUNTERS Encounter Location Date Diagnosis [facility] [address] [id number] [place] [address] Feb Type 2 diabetes mellitus with hyperglycemia E11.65 ; Charcot foot due to diabetes mellitus E11.610 and BMI 50.0-59.9, adult Z68.43 [facility] [place] [address] [id number] [place] [address] Feb [facility] [address] [facility] [id number] [place] [id number] Feb, [facility] [place] [address] [id number] [place] [address] Jan Depression, unspecified depression type F32.9 [facility] [address] [id number] [place] [address] Jan Charcot foot due to diabetes mellitus E11.610 [facility] [address] [facility] [id number] [place] [address] Dec, [facility] [place] [address] [id number] [place] [address] Dec Charcot foot due to diabetes mellitus E11.610 [facility] [place] [address] [id number] [place] [address] Dec Neuropathy involving both lower extremities G57.93 [facility] [place] [address] [id number] [place] [address] Dec [facility] [place] [address] [id number] [place] [address] November [facility] [place] [address] [id number] [place] [address] November [facility] [place] [address] [id number] [place] [address] November [facility] [place] [address] [id number] [place] [address] November [facility] [place] [address] [id number] [place] [address] November Type 2 diabetes mellitus with hyperglycemia E11.65 ; group home current use of insulin Z79.4 ; Morbid obesity due to excess calories E66.01 ; Charcot foot due to diabetes mellitus E11.610 ; Neuropathy involving both lower extremities G57.93 ; BMI 50.0-59.9, adult Z68.43 ; Depression, unspecified depression type F32.9 and Scrotal swelling N50.89 [facility] [place] [address] [id number] [place] [address] November [facility] [place] [address] [id number] [place] [address] Oct Charcot foot due to diabetes mellitus E11.610 [facility] [place] [address] [id number] [place] [address] Sep Type 2 diabetes mellitus with hyperglycemia E11.65 [facility] [place] [address] [id number] [place] [address] Sep [facility] [place] [address] [id number] [place] [address] Sep [facility] [place] [address] [id number] [place] [address] Sep Charcot foot due to diabetes mellitus E11.610 [facility] [place] [address] [id number] [place] [address] 08 Sep Scrotal swelling N50.89 ; Fungal infection of the groin B35.6 and BMI 50.0-59.9, adult Z68.43 [facility] [place] [address] [id number] [place] [address] Sep Scrotal swelling N50.89 [facility] [place] [address] [id number] [place] [address] Sep Scrotal swelling N50.89 [facility] [place] [address] [id number] [place] [address] Aug Scrotal swelling N50.89 [facility] [place] [address] [id number] [place] [address] 14 Aug Charcot foot due to diabetes mellitus E11.610 [facility] [place] [address] [id number] [place] [address] 09 Aug Type 2 diabetes mellitus with hyperglycemia E11.65 ; group home current use of insulin Z79.4 ; Morbid obesity due to excess calories E66.01 ; Charcot foot due to diabetes mellitus E11.610 ; Depression, unspecified depression type F32.9 and Essential hypertension I10 [place] [address] [id number] [address] Aug, [facility] [place] [address] [id number] [place] [address] Aug Scrotal swelling N50.89 and Depression, unspecified depression type F32.9 [place] [address] [id number], [place] [address] Jul, [facility] [address], [place] [address] Jul, [facility] [address] [facility] [id number] [place] [id number] Jul, [facility] [place] [address] [id number] [place] [address] Jul Scrotal swelling N50.89 [facility] [place] [address] [id number] [place] [address] Jul [facility] [place] [address] [id number] [place] [address] Jul Scrotal swelling N50.89 [facility] [place] [address] [id number] [place] [address] Jul Charcot foot due to diabetes mellitus E11.610 [facility] [place] [address] [id number] [place] [address] Jul Depression, unspecified depression type F32.9 and BMI 50.0-59.9, adult Z68.43 [facility] [place] [address] [id number] [place] [address] Jun Depression, unspecified depression type F32.9 ; Charcot foot due to diabetes mellitus E11.610 and BMI 50.0-59.9, adult Z68.43 [facility] [place] [address] [id number] [place] [address] Jun [facility] [place] [address] [id number] [place] [address] 09 May BMI 40.0-44.9, adult Z68.41 ; Type 2 diabetes mellitus with hyperglycemia E11.65 ; Essential hypertension I10 ; Depression, unspecified depression type F32.9 ; Charcot foot due to diabetes mellitus E11.610 and terminologist current use of insulin Z79.4 [facility] [place] [address] [id number] [place] [address] May [facility] [place] [address] [id number] [place] [address] May [facility] [place] [address] [id number] [place] [address] May [facility] [place] [address] [id number] [place] [address] Apr [place] [address] [facility] [id number] [place] [address] Apr, [facility] [place] [address] [id number] [place] [address] Apr [facility] [place] [address] [id number] [place] [address] Apr Type 2 diabetes mellitus with hyperglycemia E11.65 and Depression, unspecified depression type F32.9 [facility] [place] [address] [id number] [place] [address] Apr Encounter for immunization Z23 ; Type 2 diabetes mellitus with hyperglycemia E11.65 ; terminologist current use of insulin Z79.4 ; Charcot foot due to diabetes mellitus E11.610 and Essential hypertension I10 [facility] [place] [address] [id number] [place] [address] Mar Essential hypertension I10 ; Charcot foot due to diabetes mellitus E11.610 and Type 2 diabetes mellitus with hyperglycemia E11.65 [facility] [place] [address] [id number] [place] [address] Mar [place] [address] [facility] [id number] [place] [address] Feb, [facility] [place] [address] [id number] [place] [address] Feb Type 2 diabetes mellitus with hyperglycemia E11.65 ; Essential hypertension I10 ; terminologist current use of insulin Z79.4 ; Morbid obesity due to excess calories E66.01 ; Charcot foot due to diabetes mellitus E11.610 and Depression, unspecified depression type F32.9 [facility] [place] [address] [id number] [place] [address] Jan [facility] [place] [address] [id number] [place] [address] Jan [facility] [place] [address] [id number] [place] [address] Jan [place] [address] [facility] [id number] [place] [address] Jan, [facility] [place] [address] [id number] [place] [address] Dec Charcot foot due to diabetes mellitus E11.610 [facility] [place] [address] [id number] [place] [address] November [facility] [place] [address] [id number] [place] [address] November Type 2 diabetes mellitus with hyperglycemia E11.65 ; terminologist current use of insulin Z79.4 and Charcot foot due to diabetes mellitus E11.610 [facility] [place] [address] [id number] [place] [address] November Bronchitis J40 [facility] [place] [address] [id number] [place] [address] Oct Cellulitis of right lower extremity L03.115 and Charcot foot due to diabetes mellitus E11.610 [facility] [place] [address] [id number] [place] [address] Sep [facility] [address] [facility] [id number] [place] [address] Sep, [facility] [place] [address] [id number] [place] [address] Sep Bronchitis J40 [facility] [address] [id number] [place] [address] Sep, [facility] [place] [address] [id number] [place] [address] Sep Bronchitis J40 [facility] [place] [address] [id number] [place] [address] Sep Type 2 diabetes mellitus with hyperglycemia E11.65 [facility] [place] [address] [id number] [place] [address] Sep [facility] [address] [facility] [id number] [place] [address] Aug, [facility] [place] [address] [id number] [place] [address] Aug Type 2 diabetes mellitus with hyperglycemia E11.65 ; Depression, unspecified depression type F32.9 ; Charcot foot due to diabetes mellitus E11.610 and Encounter for immunization Z23 [facility] [place] [address] [id number] [place] [address] Aug [facility] [place] [address] [id number] [place] [address] Jul Type 2 diabetes mellitus with hyperglycemia E11.65 ; terminologist current use of insulin Z79.4 ; Morbid obesity due to excess calories E66.01 and Charcot foot due to diabetes mellitus E11.610 [facility] [place] [address] [id number] [place] [address] Jun Type 2 diabetes mellitus with hyperglycemia E11.65 ; group home current use of insulin Z79.4 ; Morbid obesity due to excess calories E66.01 ; Charcot foot due to diabetes mellitus E11.610 and Encounter for immunization Z23 [place] [address] [id number], [place] [address] Jun, [place] [address] [id number], [place] [address] Jun, [facility] [place] [address] [id number] [place] [address] Jun Fever in other diseases R50.81 [facility] [place] [address] [id number] [place] [address] May [facility] [place] [address] [id number] [place] [address] May [facility] [place] [address] [id number] [place] [address] May Type 2 diabetes mellitus with hyperglycemia E11.65 [facility] [place] [address] [id number] [place] [address] May Type 2 diabetes mellitus with hyperglycemia E11.65 ; group home current use of insulin Z79.4 ; Morbid obesity due to excess calories E66.01 ; Charcot foot due to diabetes mellitus E11.610 and Depression, unspecified depression type F32.9 IMMUNIZATIONS No Known Immunizations SOCIAL HISTORY Never Assessed REASON FOR VISIT Dr Lewis PLAN OF CARE VITAL SIGNS MEDICATIONS No Known Medications RESULTS No Results PROCEDURES No Known [...]
--- OUTSIDE RECORDS SUMMARY | 2018-06-05 14:33 | XMS REPORT ---
Author Author CLAUDIA ARCHER [facility] Address [address] [place] [address] Care Team Providers Care Deckhand Engineer Name Role Phone CLAUDIA ARCHER Unavailable PROBLEMS Type Condition ICD9-CM Code JGL46-GK Code Onset Dates Condition Status SNOMED Code Problem Charcot foot due to diabetes mellitus E11.610 Active 51399432 Problem Depression, unspecified depression type F32.9 Active 10038310 Problem Neuropathy involving both lower extremities G57.93 Active 181798923 Problem BMI 40.0-44.9, adult Z68.41 Active 256160688 Problem Type 2 diabetes mellitus with hyperglycemia E11.65 Active 91718744 Problem retirement current use of insulin Z79.4 Active 030946583 Problem Essential hypertension I10 Active 87304188 Problem Morbid obesity due to excess calories E66.01 Active 638141062 ALLERGIES No Information ENCOUNTERS Encounter Location Date Diagnosis [facility] [address] [id number] [place] [address] Feb Type 2 diabetes mellitus with hyperglycemia E11.65 ; Charcot foot due to diabetes mellitus E11.610 and BMI 50.0-59.9, adult Z68.43 [facility] [place] [address] [id number] [place] [address] Feb [facility] [address] [facility] [id number] [place] [id number] Feb, [facility] [place] [address] [id number] [place] [address] Jan Depression, unspecified depression type F32.9 [facility] [address] [id number] [place] [address] Jan Charcot foot due to diabetes mellitus E11.610 [facility] [address] [facility] [id number] [place] [address] Dec, [facility] [place] [address] [id number] [place] [address] Dec Charcot foot due to diabetes mellitus E11.610 [facility] [place] [address] [id number] [place] [address] Dec Neuropathy involving both lower extremities G57.93 [facility] [place] [address] [id number] [place] [address] Dec [facility] [place] [address] [id number] [place] [address] November [facility] [place] [address] [id number] [place] [address] November [facility] [place] [address] [id number] [place] [address] November [facility] [place] [address] [id number] [place] [address] November [facility] [place] [address] [id number] [place] [address] November Type 2 diabetes mellitus with hyperglycemia E11.65 ; retirement current use of insulin Z79.4 ; Morbid obesity due to excess calories E66.01 ; Charcot foot due to diabetes mellitus E11.610 ; Neuropathy involving both lower extremities G57.93 ; BMI 50.0-59.9, adult Z68.43 ; Depression, unspecified depression type F32.9 and Scrotal swelling N50.89 [facility] [place] [address] [id number] [place] [address] November [facility] [place] [address] [id number] [place] [address] Oct Charcot foot due to diabetes mellitus E11.610 [facility] [place] [address] [id number] [place] [address] Sep Type 2 diabetes mellitus with hyperglycemia E11.65 [facility] [place] [address] [id number] [place] [address] Sep [facility] [place] [address] [id number] [place] [address] Sep [facility] [place] [address] [id number] [place] [address] Sep Charcot foot due to diabetes mellitus E11.610 [facility] [place] [address] [id number] [place] [address] 08 Sep Scrotal swelling N50.89 ; Fungal infection of the groin B35.6 and BMI 50.0-59.9, adult Z68.43 [facility] [place] [address] [id number] [place] [address] Sep Scrotal swelling N50.89 [facility] [place] [address] [id number] [place] [address] Sep Scrotal swelling N50.89 [facility] [place] [address] [id number] [place] [address] Aug Scrotal swelling N50.89 [facility] [place] [address] [id number] [place] [address] 14 Aug Charcot foot due to diabetes mellitus E11.610 [facility] [place] [address] [id number] [place] [address] 09 Aug Type 2 diabetes mellitus with hyperglycemia E11.65 ; retirement current use of insulin Z79.4 ; Morbid obesity due to excess calories E66.01 ; Charcot foot due to diabetes mellitus E11.610 ; Depression, unspecified depression type F32.9 and Essential hypertension I10 [place] [address] [id number] [address] Aug, [facility] [place] [address] [id number] [place] [address] Aug Scrotal swelling N50.89 and Depression, unspecified depression type F32.9 [place] [address] [place] [address] [id number] [address] Jul, [facility] [address] [address] Jul, [facility] [address] [facility] [id number] [place] [id number] Jul, [facility] [place] [address] [id number] [place] [address] Jul Scrotal swelling N50.89 [facility] [place] [address] [id number] [place] [address] Jul [facility] [place] [address] [id number] [place] [address] Jul Scrotal swelling N50.89 [facility] [place] [address] [id number] [place] [address] Jul Charcot foot due to diabetes mellitus E11.610 [facility] [place] [address] [id number] [place] [address] Jul Depression, unspecified depression type F32.9 and BMI 50.0-59.9, adult Z68.43 [facility] [place] [address] [id number] [place] [address] Jun Depression, unspecified depression type F32.9 ; Charcot foot due to diabetes mellitus E11.610 and BMI 50.0-59.9, adult Z68.43 [facility] [place] [address] [id number] [place] [address] Jun [facility] [place] [address] [id number] [place] [address] 09 May BMI 40.0-44.9, adult Z68.41 ; Type 2 diabetes mellitus with hyperglycemia E11.65 ; Essential hypertension I10 ; Depression, unspecified depression type F32.9 ; Charcot foot due to diabetes mellitus E11.610 and ferry terminal agent current use of insulin Z79.4 [facility] [place] [address] [id number] [place] [address] May [facility] [place] [address] [id number] [place] [address] May [facility] [place] [address] [id number] [place] [address] May [facility] [place] [address] [id number] [place] [address] Apr [place] [address] [facility] [id number] [place] [address] Apr, [facility] [place] [address] [id number] [place] [address] Apr [facility] [place] [address] [id number] [place] [address] Apr Type 2 diabetes mellitus with hyperglycemia E11.65 and Depression, unspecified depression type F32.9 [facility] [place] [address] [id number] [place] [address] Apr Encounter for immunization Z23 ; Type 2 diabetes mellitus with hyperglycemia E11.65 ; ferry terminal agent current use of insulin Z79.4 ; Charcot foot due to diabetes mellitus E11.610 and Essential hypertension I10 [facility] [place] [address] [id number] [place] [address] Mar Essential hypertension I10 ; Charcot foot due to diabetes mellitus E11.610 and Type 2 diabetes mellitus with hyperglycemia E11.65 [facility] [place] [address] [id number] [place] [address] Mar [place] [address] [facility] [id number] [place] [address] Feb, [facility] [place] [address] [id number] [place] [address] Feb Type 2 diabetes mellitus with hyperglycemia E11.65 ; Essential hypertension I10 ; ferry terminal agent current use of insulin Z79.4 ; Morbid obesity due to excess calories E66.01 ; Charcot foot due to diabetes mellitus E11.610 and Depression, unspecified depression type F32.9 [facility] [place] [address] [id number] [place] [address] Jan [facility] [place] [address] [id number] [place] [address] Jan [facility] [place] [address] [id number] [place] [address] Jan [place] [address] [facility] [id number] [place] [address] Jan, [facility] [place] [address] [id number] [place] [address] Dec Charcot foot due to diabetes mellitus E11.610 [facility] [place] [address] [id number] [place] [address] November [facility] [place] [address] [id number] [place] [address] November Type 2 diabetes mellitus with hyperglycemia E11.65 ; ferry terminal agent current use of insulin Z79.4 and Charcot foot due to diabetes mellitus E11.610 [facility] [place] [address] [id number] [place] [address] November Bronchitis J40 [facility] [place] [address] [id number] [place] [address] Oct Cellulitis of right lower extremity L03.115 and Charcot foot due to diabetes mellitus E11.610 [facility] [place] [address] [id number] [place] [address] Sep [facility] [address] [facility] [id number] [place] [address] Sep, [facility] [place] [address] [id number] [place] [address] Sep Bronchitis J40 [facility] [address] [id number] [place] [id number] Sep, [facility] [place] [address] [id number] [place] [address] Sep Bronchitis J40 [facility] [place] [address] [id number] [place] [address] Sep Type 2 diabetes mellitus with hyperglycemia E11.65 [facility] [place] [address] [id number] [place] [address] Sep [facility] [address] [facility] [id number] [place] [address] Aug, [facility] [place] [address] [id number] [place] [address] Aug Type 2 diabetes mellitus with hyperglycemia E11.65 ; Depression, unspecified depression type F32.9 ; Charcot foot due to diabetes mellitus E11.610 and Encounter for immunization Z23 [facility] [place] [address] [id number] [place] [address] Aug [facility] [place] [address] [id number] [place] [address] Jul Type 2 diabetes mellitus with hyperglycemia E11.65 ; ferry terminal agent current use of insulin Z79.4 ; Morbid obesity due to excess calories E66.01 and Charcot foot due to diabetes mellitus E11.610 [facility] [place] [address] [id number] [place] [address] Jun Type 2 diabetes mellitus with hyperglycemia E11.65 ; retirement current use of insulin Z79.4 ; Morbid obesity due to excess calories E66.01 ; Charcot foot due to diabetes mellitus E11.610 and Encounter for immunization Z23 [place] [address] [place] [address] [id number] [address] Jun, [place] [address] [place] [address] [id number] [address] Jun, [facility] [place] [address] [id number] [place] [address] Jun Fever in other diseases R50.81 [facility] [place] [address] [id number] [place] [address] May [facility] [place] [address] [id number] [place] [address] May [facility] [place] [address] [id number] [place] [address] May Type 2 diabetes mellitus with hyperglycemia E11.65 [facility] [place] [address] [id number] [place] [address] May Type 2 diabetes mellitus with hyperglycemia E11.65 ; retirement current use of insulin Z79.4 ; Morbid obesity due to excess calories E66.01 ; Charcot foot due to diabetes mellitus E11.610 and Depression, unspecified depression type F32.9 IMMUNIZATIONS No Known Immunizations SOCIAL HISTORY Never Assessed REASON FOR VISIT pain pills PLAN OF CARE VITAL SIGNS MEDICATIONS Medication Instructions Dosage Frequency Start Date End Date Duration Status Percocet 10-325 MG Orally every 6 hrs 1 tablet as needed 6h Dec, 28 days Active RESULTS No Results PROCEDURES [...]
--- OUTSIDE RECORDS SUMMARY | 2018-06-05 14:33 | XMS REPORT ---
Author Author CLAUDIA ARCHER [facility] Address [address] [place] [address] Care Team Providers Care Patient Transport Orderly Name Role Phone CLAUDIA ARCHER Unavailable PROBLEMS Type Condition ICD9-CM Code CQV29-GD Code Onset Dates Condition Status SNOMED Code Problem Charcot foot due to diabetes mellitus E11.610 Active 62704297 Problem Depression, unspecified depression type F32.9 Active 36614660 Problem Neuropathy involving both lower extremities G57.93 Active 701904811 Problem BMI 40.0-44.9, adult Z68.41 Active 116155645 Problem Type 2 diabetes mellitus with hyperglycemia E11.65 Active 70265849 Problem longterm current use of insulin Z79.4 Active 408213515 Problem Essential hypertension I10 Active 22603720 Problem Morbid obesity due to excess calories E66.01 Active 816754928 ALLERGIES No Known Allergies ENCOUNTERS Encounter Location Date Diagnosis [facility] [address] [id number] [place] [address] Feb Type 2 diabetes mellitus with hyperglycemia E11.65 ; Charcot foot due to diabetes mellitus E11.610 and BMI 50.0-59.9, adult Z68.43 [facility] [place] [address] [id number] [place] [address] Feb [facility] [address] [facility] [id number] [place] [id number] Feb, [facility] [place] [address] [id number] [place] [address] Jan Depression, unspecified depression type F32.9 [facility] [address] [id number] [place] [address] Jan Charcot foot due to diabetes mellitus E11.610 [facility] [address] [facility] [id number] [place] [address] Dec, [facility] [place] [address] [id number] [place] [address] Dec Charcot foot due to diabetes mellitus E11.610 [facility] [place] [address] [id number] [place] [address] Dec Neuropathy involving both lower extremities G57.93 [facility] [place] [address] [id number] [place] [address] Dec [facility] [place] [address] [id number] [place] [address] November [facility] [place] [address] [id number] [place] [address] November [facility] [place] [address] [id number] [place] [address] November [facility] [place] [address] [id number] [place] [address] November [facility] [place] [address] [id number] [place] [address] November Type 2 diabetes mellitus with hyperglycemia E11.65 ; longterm current use of insulin Z79.4 ; Morbid obesity due to excess calories E66.01 ; Charcot foot due to diabetes mellitus E11.610 ; Neuropathy involving both lower extremities G57.93 ; BMI 50.0-59.9, adult Z68.43 ; Depression, unspecified depression type F32.9 and Scrotal swelling N50.89 [facility] [place] [address] [id number] [place] [address] November [facility] [place] [address] [id number] [place] [address] Oct Charcot foot due to diabetes mellitus E11.610 [facility] [place] [address] [id number] [place] [address] Sep Type 2 diabetes mellitus with hyperglycemia E11.65 [facility] [place] [address] [id number] [place] [address] Sep [facility] [place] [address] [id number] [place] [address] 15 Sep [facility] [place] [address] [id number] [place] [address] Sep Charcot foot due to diabetes mellitus E11.610 [facility] [place] [address] [id number] [place] [address] 08 Sep Scrotal swelling N50.89 ; Fungal infection of the groin B35.6 and BMI 50.0-59.9, adult Z68.43 [facility] [place] [address] [id number] [place] [address] 05 Sep Scrotal swelling N50.89 [facility] [place] [address] [id number] [place] [address] Sep Scrotal swelling N50.89 [facility] [place] [address] [id number] [place] [address] Aug Scrotal swelling N50.89 [facility] [place] [address] [id number] [place] [address] 14 Aug Charcot foot due to diabetes mellitus E11.610 [facility] [place] [address] [id number] [place] [address] 09 Aug Type 2 diabetes mellitus with hyperglycemia E11.65 ; exterminator termite current use of insulin Z79.4 ; Morbid obesity due to excess calories E66.01 ; Charcot foot due to diabetes mellitus E11.610 ; Depression, unspecified depression type F32.9 and Essential hypertension I10 [place] [address] [id number] [address] Aug, [facility] [place] [address] [id number] [place] [address] Aug Scrotal swelling N50.89 and Depression, unspecified depression type F32.9 [place] [address] [id number] [address] Jul, [facility] [address] [id number] [address] Jul, [facility] [address] [id number] [place] [address] Jul, [facility] [place] [address] [id number] [place] [address] Jul Scrotal swelling N50.89 [facility] [place] [address] [id number] [place] [address] Jul [facility] [place] [address] [id number] [place] [address] Jul Scrotal swelling N50.89 [facility] [place] [address] [id number] [place] [address] Jul Charcot foot due to diabetes mellitus E11.610 [facility] [place] [address] [id number] [place] [address] Jul Depression, unspecified depression type F32.9 and BMI 50.0-59.9, adult Z68.43 [facility] [place] [address] [id number] [place] [address] Jun Depression, unspecified depression type F32.9 ; Charcot foot due to diabetes mellitus E11.610 and BMI 50.0-59.9, adult Z68.43 [facility] [place] [address] [id number] [place] [address] Jun [facility] [place] [address] [id number] [place] [address] May BMI 40.0-44.9, adult Z68.41 ; Type 2 diabetes mellitus with hyperglycemia E11.65 ; Essential hypertension I10 ; Depression, unspecified depression type F32.9 ; Charcot foot due to diabetes mellitus E11.610 and exterminator termite current use of insulin Z79.4 [facility] [place] [address] [id number] [place] [address] May [facility] [place] [address] [id number] [place] [address] May [facility] [place] [address] [id number] [place] [address] May [facility] [place] [address] [id number] [place] [address] Apr [place] [address] [facility] [id number] [place] [address] Apr, [facility] [place] [address] [id number] [place] [address] Apr [facility] [place] [address] [id number] [place] [address] Apr Type 2 diabetes mellitus with hyperglycemia E11.65 and Depression, unspecified depression type F32.9 [facility] [place] [address] [id number] [place] [address] Apr Encounter for immunization Z23 ; Type 2 diabetes mellitus with hyperglycemia E11.65 ; longterm current use of insulin Z79.4 ; Charcot foot due to diabetes mellitus E11.610 and Essential hypertension I10 [facility] [place] [address] [id number] [place] [address] Mar Essential hypertension I10 ; Charcot foot due to diabetes mellitus E11.610 and Type 2 diabetes mellitus with hyperglycemia E11.65 [facility] [place] [address] [id number] [place] [address] Mar [place] [address] [facility] [id number] [place] [address] Feb, [facility] [place] [address] [id number] [place] [address] Feb Type 2 diabetes mellitus with hyperglycemia E11.65 ; Essential hypertension I10 ; exterminator termite current use of insulin Z79.4 ; Morbid obesity due to excess calories E66.01 ; Charcot foot due to diabetes mellitus E11.610 and Depression, unspecified depression type F32.9 [facility] [place] [address] [id number] [place] [address] Jan [facility] [place] [address] [id number] [place] [address] Jan [facility] [place] [address] [id number] [place] [address] Jan [place] [address] [facility] [id number] [place] [address] Jan, [facility] [place] [address] [id number] [place] [address] Dec Charcot foot due to diabetes mellitus E11.610 [facility] [place] [address] [id number] [place] [address] November [facility] [place] [address] [id number] [place] [address] November Type 2 diabetes mellitus with hyperglycemia E11.65 ; longterm current use of insulin Z79.4 and Charcot foot due to diabetes mellitus E11.610 [facility] [place] [address] [id number] [place] [address] November Bronchitis J40 [facility] [place] [address] [id number] [place] [address] Oct Cellulitis of right lower extremity L03.115 and Charcot foot due to diabetes mellitus E11.610 [facility] [place] [address] [id number] [place] [address] Sep [facility] [address] [facility] [id number] [place] [address] Sep, [facility] [place] [address] [id number] [place] [address] Sep Bronchitis J40 [facility] [address] [id number] [place] [address] Sep, [facility] [place] [address] [id number] [place] [address] Sep Bronchitis J40 [facility] [place] [address] [id number] [place] [address] Sep Type 2 diabetes mellitus with hyperglycemia E11.65 [facility] [place] [address] [id number] [place] [address] Sep [facility] [address] [facility] [id number] [place] [address] Aug, [facility] [place] [address] [id number] [place] [address] Aug Type 2 diabetes mellitus with hyperglycemia E11.65 ; Depression, unspecified depression type F32.9 ; Charcot foot due to diabetes mellitus E11.610 and Encounter for immunization Z23 [facility] [place] [address] [id number] [place] [address] Aug [facility] [address] [id number] [place] [address] Jul Type 2 diabetes mellitus with hyperglycemia E11.65 ; longterm current use of insulin Z79.4 ; Morbid obesity due to excess calories E66.01 and Charcot foot due to diabetes mellitus E11.610 [facility] [place] [address] [id number] [place] [address] Jun Type 2 diabetes mellitus with hyperglycemia E11.65 ; exterminator termite current use of insulin Z79.4 ; Morbid obesity due to excess calories E66.01 ; Charcot foot due to diabetes mellitus E11.610 and Encounter for immunization Z23 [place] [address] [facility] [id number] [place] [address] Jun, [place] [address] [id number], [place] [address] Jun, [facility] [place] [address] [id number] [place] [address] Jun Fever in other diseases R50.81 [facility] [place] [address] [id number] [place] [address] May [facility] [address] [id number] [place] [address] May [facility] [place] [address] [id number] [place] [address] May Type 2 diabetes mellitus with hyperglycemia E11.65 [facility] [place] [address] [id number] [place] [address] May Type 2 diabetes mellitus with hyperglycemia E11.65 ; longterm current use of insulin Z79.4 ; Morbid obesity due to excess calories E66.01 ; Charcot foot due to diabetes mellitus E11.610 and Depression, unspecified depression type F32.9 IMMUNIZATIONS No Known Immunizations SOCIAL HISTORY Never Assessed REASON FOR VISIT Neuropathy follow-up, Pt states Neuropathy is about the same. PERICO Arroyo PLAN OF CARE Activity Details Follow Up prn Reason: VITAL SIGNS Height 74 in 2017-12-19 Weight 440.3 lbs 2017-12-19 Temperature 97.8 degrees Fahrenheit 2017-12-19 Heart Rate 82 bpm 2017-12-19 Respiratory Rate 20 2017-12-19 Oximetry 97 % 2017-12-19 BMI 56.53 kg/m2 2017-12-19 Blood pressure systolic 140 mmHg 2017-12-19 Blood pressure diastolic 72 mmHg 2017-12-19 MEDICATIONS Medication Instructions Dosage Frequency Start Date End Date Duration Status Glucocard Expression Monitor w/Device as directed Mar, Active NovoLog 100 UNIT/ML Subcutaneous 3 times a day 50 unit at meals 8h Active Pen Granger 32G X 4 MM subcutaneously 3 times a day as directed 8h Sep, 90 days Active Ibuprofen 200 MG Orally PRN 4 tab Active Toujeo SoloStar 300 UNIT/ML Subcutaneous Once a day 75 units 24h Active Atorvastatin Calcium 80 MG Orally Once a day 1/2 tablet 24h May, 90 days Active Multivitamin Men Orally PRN 1 tablet Active Viibryd 20 mg Orally Once a day 1 tablet with food 24h Jun, Active Gabapentin 600 MG Orally Three times a day 1 capsule 8h Aug, 30 days Active Bydureon 2 MG Subcutaneous weekly 2 mg November, 90 days Active Percocet 10-325 MG Orally every 6 hrs 1 tablet as needed 6h November, Dec, 28 days Active Glucocard Expression Test - subcutaneously 4 times a day- 100 strips as directed Mar, 30 days Active Lisinopril 40 MG TAKE 1 TABLET BY MOUTH ONCE DAILY Active MetFORMIN HCl ER 500 MG TAKE 2 TABLETS BY MOUTH TWICE DAILY Active RESULTS No Results PROCEDURES No Known [...]
--- OUTSIDE RECORDS SUMMARY | 2018-06-05 14:34 | XMS REPORT ---
Author Author CLAUDIA ARCHER [facility] Address [address] [place] [address] Care Team Providers Care Bowling Ball Patcher Name Role Phone CLAUDIA ARCHER Unavailable PROBLEMS Type Condition ICD9-CM Code JXG44-GT Code Onset Dates Condition Status SNOMED Code Problem Charcot foot due to diabetes mellitus E11.610 Active 56689832 Problem Depression, unspecified depression type F32.9 Active 75292991 Problem Neuropathy involving both lower extremities G57.93 Active 226900190 Problem BMI 40.0-44.9, adult Z68.41 Active 999825366 Problem Type 2 diabetes mellitus with hyperglycemia E11.65 Active 31952059 Problem penitentiary current use of insulin Z79.4 Active 473424941 Problem Essential hypertension I10 Active 42416330 Problem Morbid obesity due to excess calories E66.01 Active [id number] ALLERGIES No Information ENCOUNTERS Encounter Location Date Diagnosis [facility] [address] [id number] [place] [address] Feb Type 2 diabetes mellitus with hyperglycemia E11.65 ; Charcot foot due to diabetes mellitus E11.610 and BMI 50.0-59.9, adult Z68.43 [facility] [place] [address] [id number] [place] [address] Feb [facility] [address] [facility] [id number] [place] [id number] Feb, [facility] [place] [address] [id number] [place] [address] Jan Depression, unspecified depression type F32.9 [facility] [address] [id number] [place] [address] Jan Charcot foot due to diabetes mellitus E11.610 [facility] [address] [facility] [id number] [place] [address] Dec, [facility] [place] [address] [id number] [place] [address] Dec Charcot foot due to diabetes mellitus E11.610 [facility] [place] [address] [id number] [place] [address] Dec Neuropathy involving both lower extremities G57.93 [facility] [place] [address] [id number] [place] [address] Dec [facility] [place] [address] [id number] [place] [address] November [facility] [place] [address] [id number] [place] [address] November [facility] [place] [address] [id number] [place] [address] November [facility] [place] [address] [id number] [place] [address] November [facility] [place] [address] [id number] [place] [address] November Type 2 diabetes mellitus with hyperglycemia E11.65 ; penitentiary current use of insulin Z79.4 ; Morbid obesity due to excess calories E66.01 ; Charcot foot due to diabetes mellitus E11.610 ; Neuropathy involving both lower extremities G57.93 ; BMI 50.0-59.9, adult Z68.43 ; Depression, unspecified depression type F32.9 and Scrotal swelling N50.89 [facility] [place] [address] [id number] [place] [address] November [facility] [place] [address] [id number] [place] [address] Oct Charcot foot due to diabetes mellitus E11.610 [facility] [place] [address] [id number] [place] [address] Sep Type 2 diabetes mellitus with hyperglycemia E11.65 [facility] [place] [address] [id number] [place] [address] Sep Charcot foot due to diabetes mellitus E11.610 [facility] [place] [address] [id number] [place] [address] Sep [facility] [place] [address] [id number] [place] [address] Sep [facility] [place] [address] [id number] [place] [address] Sep Scrotal swelling N50.89 ; Fungal infection of the groin B35.6 and BMI 50.0-59.9, adult Z68.43 [facility] [place] [address] [id number] [place] [address] Sep Scrotal swelling N50.89 [facility] [place] [address] [id number] [place] [address] Sep Scrotal swelling N50.89 [facility] [place] [address] [id number] [place] [address] Aug Scrotal swelling N50.89 [facility] [place] [address] [id number] [place] [address] 14 Aug Charcot foot due to diabetes mellitus E11.610 [facility] [place] [address] [id number] [place] [address] 09 Aug Type 2 diabetes mellitus with hyperglycemia E11.65 ; penitentiary current use of insulin Z79.4 ; Morbid obesity due to excess calories E66.01 ; Charcot foot due to diabetes mellitus E11.610 ; Depression, unspecified depression type F32.9 and Essential hypertension I10 [place] [address], [place] [address] Aug, [facility] [place] [address] [id number] [place] [address] Aug Scrotal swelling N50.89 and Depression, unspecified depression type F32.9 [place] [address] [id number], [place] [address] Jul, [facility] [address], [place] [address] Jul, [facility] [address] [facility] [id number] [place] [id number] Jul, [facility] [place] [address] [id number] [place] [address] Jul Scrotal swelling N50.89 [facility] [place] [address] [id number] [place] [address] Jul [facility] [place] [address] [id number] [place] [address] Jul Scrotal swelling N50.89 [facility] [place] [address] [id number] [place] [address] Jul Charcot foot due to diabetes mellitus E11.610 [facility] [place] [address] [id number] [place] [address] Jul Depression, unspecified depression type F32.9 and BMI 50.0-59.9, adult Z68.43 [facility] [place] [address] [id number] [place] [address] Jun Depression, unspecified depression type F32.9 ; Charcot foot due to diabetes mellitus E11.610 and BMI 50.0-59.9, adult Z68.43 [facility] [place] [address] [id number] [place] [address] Jun [facility] [place] [address] [id number] [place] [address] 09 May BMI 40.0-44.9, adult Z68.41 ; Type 2 diabetes mellitus with hyperglycemia E11.65 ; Essential hypertension I10 ; Depression, unspecified depression type F32.9 ; Charcot foot due to diabetes mellitus E11.610 and 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.4 [facility] [place] [address] [id number] [place] [address] May [facility] [place] [address] [id number] [place] [address] May [facility] [place] [address] [id number] [place] [address] May [facility] [place] [address] [id number] [place] [address] Apr [place] [address] [facility] [id number] [place] [address] Apr, [facility] [place] [address] [id number] [place] [address] Apr [facility] [place] [address] [id number] [place] [address] Apr Type 2 diabetes mellitus with hyperglycemia E11.65 and Depression, unspecified depression type F32.9 [facility] [place] [address] [id number] [place] [address] Apr Encounter for immunization Z23 ; Type 2 diabetes mellitus with hyperglycemia E11.65 ; 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.4 ; Charcot foot due to diabetes mellitus E11.610 and Essential hypertension I10 [facility] [place] [address] [id number] [place] [address] Mar Essential hypertension I10 ; Charcot foot due to diabetes mellitus E11.610 and Type 2 diabetes mellitus with hyperglycemia E11.65 [facility] [place] [address] [id number] [place] [address] Mar [place] [address] [facility] [id number] [place] [address] Feb, [facility] [place] [address] [id number] [place] [address] Feb Type 2 diabetes mellitus with hyperglycemia E11.65 ; Essential hypertension I10 ; 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.4 ; Morbid obesity due to excess calories E66.01 ; Charcot foot due to diabetes mellitus E11.610 and Depression, unspecified depression type F32.9 [facility] [place] [address] [id number] [place] [address] Jan [facility] [place] [address] [id number] [place] [address] Jan [facility] [place] [address] [id number] [place] [address] Jan [place] [address] [facility] [id number] [place] [address] Jan, [facility] [place] [address] [id number] [place] [address] Dec Charcot foot due to diabetes mellitus E11.610 [facility] [place] [address] [id number] [place] [address] November [facility] [place] [address] [id number] [place] [address] November Type 2 diabetes mellitus with hyperglycemia E11.65 ; 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.4 and Charcot foot due to diabetes mellitus E11.610 [facility] [place] [address] [id number] [place] [address] November Bronchitis J40 [facility] [place] [address] [id number] [place] [address] Oct Cellulitis of right lower extremity L03.115 and Charcot foot due to diabetes mellitus E11.610 [facility] [place] [address] [id number] [place] [address] Sep [facility] [address] [facility] [id number] [place] [address] Sep, [facility] [place] [address] [id number] [place] [address] Sep Bronchitis J40 [facility] [address] [id number] [place] [address] Sep, [facility] [place] [address] [id number] [place] [address] Sep Bronchitis J40 [facility] [place] [address] [id number] [place] [address] Sep Type 2 diabetes mellitus with hyperglycemia E11.65 [facility] [place] [address] [id number] [place] [address] Sep [facility] [address] [facility] [id number] [place] [address] Aug, [facility] [place] [address] [id number] [place] [address] Aug Type 2 diabetes mellitus with hyperglycemia E11.65 ; Depression, unspecified depression type F32.9 ; Charcot foot due to diabetes mellitus E11.610 and Encounter for immunization Z23 [facility] [place] [address] [id number] [place] [address] Aug [facility] [place] [address] [id number] [place] [address] Jul Type 2 diabetes mellitus with hyperglycemia E11.65 ; 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.4 ; Morbid obesity due to excess calories E66.01 and Charcot foot due to diabetes mellitus E11.610 [facility] [place] [address] [id number] [place] [address] Jun Type 2 diabetes mellitus with hyperglycemia E11.65 ; penitentiary current use of insulin Z79.4 ; Morbid obesity due to excess calories E66.01 ; Charcot foot due to diabetes mellitus E11.610 and Encounter for immunization Z23 [place] [address] [place] [id number], [place] [address] Jun, [place] [address] [place] [id number], [place] [address] Jun, [facility] [place] [address] [id number] [place] [address] Jun Fever in other diseases R50.81 [facility] [place] [address] [id number] [place] [address] May [facility] [place] [address] [id number] [place] [address] May [facility] [place] [address] [id number] [place] [address] May Type 2 diabetes mellitus with hyperglycemia E11.65 [facility] [place] [address] [id number] [place] [address] May Type 2 diabetes mellitus with hyperglycemia E11.65 ; penitentiary current use of insulin Z79.4 ; Morbid obesity due to excess calories E66.01 ; Charcot foot due to diabetes mellitus E11.610 and Depression, unspecified depression type F32.9 IMMUNIZATIONS No Known Immunizations SOCIAL HISTORY Never Assessed REASON FOR VISIT Pals order ready for pick-up PLAN OF CARE VITAL SIGNS MEDICATIONS No [...]
--- OUTSIDE RECORDS SUMMARY | 2018-06-05 14:34 | XMS REPORT ---
Author Author CLAUDIA ARCHER [facility] Address [address] [place] [address] Care Team Providers Care Superintendent Laundry Name Role Phone CLAUDIA ARCHER Unavailable PROBLEMS Type Condition ICD9-CM Code RYV25-II Code Onset Dates Condition Status SNOMED Code Problem Charcot foot due to diabetes mellitus E11.610 Active 78902449 Problem Depression, unspecified depression type F32.9 Active 92029619 Problem Neuropathy involving both lower extremities G57.93 Active 329594758 Problem BMI 40.0-44.9, adult Z68.41 Active 490160655 Problem Type 2 diabetes mellitus with hyperglycemia E11.65 Active 02516353 Problem retirement current use of insulin Z79.4 Active 723772261 Problem Essential hypertension I10 Active 65178433 Problem Morbid obesity due to excess calories E66.01 Active [id number] ALLERGIES No Information ENCOUNTERS Encounter Location Date Diagnosis [facility] [address] [id number] [place] [address] Feb Type 2 diabetes mellitus with hyperglycemia E11.65 ; Charcot foot due to diabetes mellitus E11.610 and BMI 50.0-59.9, adult Z68.43 [facility] [place] [address] [id number] [place] [address] Feb [facility] [address] [facility] [id number] [place] [id number] Feb, [facility] [place] [address] [id number] [place] [address] Jan Depression, unspecified depression type F32.9 [facility] [address] [id number] [place] [address] Jan Charcot foot due to diabetes mellitus E11.610 [facility] [address] [facility] [id number] [place] [address] Dec, [facility] [place] [address] [id number] [place] [address] Dec Charcot foot due to diabetes mellitus E11.610 [facility] [place] [address] [id number] [place] [address] Dec Neuropathy involving both lower extremities G57.93 [facility] [place] [address] [id number] [place] [address] Dec [facility] [place] [address] [id number] [place] [address] November [facility] [place] [address] [id number] [place] [address] November [facility] [place] [address] [id number] [place] [address] November [facility] [place] [address] [id number] [place] [address] November [facility] [place] [address] [id number] [place] [address] November Type 2 diabetes mellitus with hyperglycemia E11.65 ; retirement current use of insulin Z79.4 ; Morbid obesity due to excess calories E66.01 ; Charcot foot due to diabetes mellitus E11.610 ; Neuropathy involving both lower extremities G57.93 ; BMI 50.0-59.9, adult Z68.43 ; Depression, unspecified depression type F32.9 and Scrotal swelling N50.89 [facility] [place] [address] [id number] [place] [address] November [facility] [place] [address] [id number] [place] [address] Oct Charcot foot due to diabetes mellitus E11.610 [facility] [place] [address] [id number] [place] [address] Sep Type 2 diabetes mellitus with hyperglycemia E11.65 [facility] [place] [address] [id number] [place] [address] Sep Charcot foot due to diabetes mellitus E11.610 [facility] [place] [address] [id number] [place] [address] Sep [facility] [address] [id number] [place] [address] Sep [facility] [place] [address] [id number] [place] [address] Sep Scrotal swelling N50.89 ; Fungal infection of the groin B35.6 and BMI 50.0-59.9, adult Z68.43 [facility] [place] [address] [id number] [place] [address] Sep Scrotal swelling N50.89 [facility] [place] [address] [id number] [place] [address] Sep Scrotal swelling N50.89 [facility] [place] [address] [id number] [place] [address] Aug Scrotal swelling N50.89 [facility] [place] [address] [id number] [place] [address] 14 Aug Charcot foot due to diabetes mellitus E11.610 [facility] [place] [address] [id number] [place] [address] 09 Aug Type 2 diabetes mellitus with hyperglycemia E11.65 ; retirement current use of insulin Z79.4 ; Morbid obesity due to excess calories E66.01 ; Charcot foot due to diabetes mellitus E11.610 ; Depression, unspecified depression type F32.9 and Essential hypertension I10 [place] [address] [address] Aug, [facility] [place] [address] [id number] [place] [address] Aug Scrotal swelling N50.89 and Depression, unspecified depression type F32.9 [place] [address] [place] [id number] [address] Jul, [facility] [address] [address] Jul, [facility] [address] [facility] [id number] [place] [address] Jul, [facility] [place] [address] [id number] [place] [address] Jul Scrotal swelling N50.89 [facility] [place] [address] [id number] [place] [address] Jul [facility] [place] [address] [id number] [place] [address] Jul Scrotal swelling N50.89 [facility] [place] [address] [id number] [place] [address] Jul Charcot foot due to diabetes mellitus E11.610 [facility] [place] [address] [id number] [place] [address] Jul Depression, unspecified depression type F32.9 and BMI 50.0-59.9, adult Z68.43 [facility] [place] [address] [id number] [place] [address] Jun Depression, unspecified depression type F32.9 ; Charcot foot due to diabetes mellitus E11.610 and BMI 50.0-59.9, adult Z68.43 [facility] [place] [address] [id number] [place] [address] Jun [facility] [place] [address] [id number] [place] [address] 09 May BMI 40.0-44.9, adult Z68.41 ; Type 2 diabetes mellitus with hyperglycemia E11.65 ; Essential hypertension I10 ; Depression, unspecified depression type F32.9 ; Charcot foot due to diabetes mellitus E11.610 and intermodal owner operator truck driver current use of insulin Z79.4 [facility] [place] [address] [id number] [place] [address] May [facility] [place] [address] [id number] [place] [address] May [facility] [place] [address] [id number] [place] [address] May [facility] [place] [address] [id number] [place] [address] Apr [place] [address] [facility] [id number] [place] [address] Apr, [facility] [place] [address] [id number] [place] [address] Apr [facility] [place] [address] [id number] [place] [address] Apr Type 2 diabetes mellitus with hyperglycemia E11.65 and Depression, unspecified depression type F32.9 [facility] [place] [address] [id number] [place] [address] Apr Encounter for immunization Z23 ; Type 2 diabetes mellitus with hyperglycemia E11.65 ; intermodal owner operator truck driver current use of insulin Z79.4 ; Charcot foot due to diabetes mellitus E11.610 and Essential hypertension I10 [facility] [address] [id number] [place] [address] Mar Essential hypertension I10 ; Charcot foot due to diabetes mellitus E11.610 and Type 2 diabetes mellitus with hyperglycemia E11.65 [facility] [address] [id number] [place] [address] Mar [place] [address] [facility] [id number] [place] [address] Feb, [facility] [place] [address] [id number] [place] [address] Feb Type 2 diabetes mellitus with hyperglycemia E11.65 ; Essential hypertension I10 ; intermodal owner operator truck driver current use of insulin Z79.4 ; Morbid obesity due to excess calories E66.01 ; Charcot foot due to diabetes mellitus E11.610 and Depression, unspecified depression type F32.9 [facility] [place] [address] [id number] [place] [address] Jan [facility] [place] [address] [id number] [place] [address] Jan [facility] [place] [address] [id number] [place] [address] Jan [place] [address] [facility] [id number] [place] [address] Jan, [facility] [place] [address] [id number] [place] [address] Dec Charcot foot due to diabetes mellitus E11.610 [facility] [place] [address] [id number] [place] [address] November [facility] [place] [address] [id number] [place] [address] November Type 2 diabetes mellitus with hyperglycemia E11.65 ; intermodal owner operator truck driver current use of insulin Z79.4 and Charcot foot due to diabetes mellitus E11.610 [facility] [place] [address] [id number] [place] [address] November Bronchitis J40 [facility] [place] [address] [id number] [place] [address] Oct Cellulitis of right lower extremity L03.115 and Charcot foot due to diabetes mellitus E11.610 [facility] [place] [address] [id number] [place] [address] Sep [facility] [address] [facility] [id number] [place] [address] Sep, [facility] [place] [address] [id number] [place] [address] Sep Bronchitis J40 [facility] [address] [id number] [place] [id number] Sep, [facility] [place] [address] [id number] [place] [address] Sep Bronchitis J40 [facility] [place] [address] [id number] [place] [address] Sep Type 2 diabetes mellitus with hyperglycemia E11.65 [facility] [place] [address] [id number] [place] [address] Sep [facility] [address] [facility] [id number] [place] [address] Aug, [facility] [place] [address] [id number] [place] [address] Aug Type 2 diabetes mellitus with hyperglycemia E11.65 ; Depression, unspecified depression type F32.9 ; Charcot foot due to diabetes mellitus E11.610 and Encounter for immunization Z23 [facility] [address] [id number] [place] [address] Aug [facility] [place] [address] [id number] [place] [address] Jul Type 2 diabetes mellitus with hyperglycemia E11.65 ; intermodal owner operator truck driver current use of insulin Z79.4 ; Morbid obesity due to excess calories E66.01 and Charcot foot due to diabetes mellitus E11.610 [facility] [place] [address] [id number] [place] [address] Jun Type 2 diabetes mellitus with hyperglycemia E11.65 ; retirement current use of insulin Z79.4 ; Morbid obesity due to excess calories E66.01 ; Charcot foot due to diabetes mellitus E11.610 and Encounter for immunization Z23 [place] [address] [place] [id number] [address] Jun, [place] [address] [place] [id number] [address] Jun, [facility] [place] [address] [id number] [place] [address] Jun Fever in other diseases R50.81 [facility] [address] [id number] [place] [address] May [facility] [place] [address] [id number] [place] [address] May [facility] [place] [address] [id number] [place] [address] May Type 2 diabetes mellitus with hyperglycemia E11.65 [facility] [place] [address] [id number] [place] [address] May Type 2 diabetes mellitus with hyperglycemia [...]
--- OUTSIDE RECORDS SUMMARY | 2018-06-05 14:34 | XMS REPORT ---
Author Author CLAUDIA ARCHER [facility] Address [address] [place] [address] Care Team Providers Care Mathematician Name Role Phone CLAUDIA ARCHER Unavailable PROBLEMS Type Condition ICD9-CM Code GWI98-OB Code Onset Dates Condition Status SNOMED Code Problem Charcot foot due to diabetes mellitus E11.610 Active 47695001 Problem Depression, unspecified depression type F32.9 Active 36909461 Problem Neuropathy involving both lower extremities G57.93 Active 973779187 Problem BMI 40.0-44.9, adult Z68.41 Active 916510794 Problem Type 2 diabetes mellitus with hyperglycemia E11.65 Active 96525168 Problem FPC current use of insulin Z79.4 Active 643931733 Problem Essential hypertension I10 Active 89847455 Problem Morbid obesity due to excess calories E66.01 Active [id number] ALLERGIES No Information ENCOUNTERS Encounter Location Date Diagnosis [facility] [address] [id number] [place] [address] Feb Type 2 diabetes mellitus with hyperglycemia E11.65 ; Charcot foot due to diabetes mellitus E11.610 and BMI 50.0-59.9, adult Z68.[address] [facility] [place] [address] [id number] [place] [address] Feb [facility] [address] [facility] [id number] [place] [id number] Feb, [facility] [place] [address] [id number] [place] [address] Jan Depression, unspecified depression type F32.9 [facility] [address] [id number] [place] [address] Jan Charcot foot due to diabetes mellitus E11.610 [facility] [address] [facility] [id number] [place] [address] Dec, [facility] [place] [address] [id number] [place] [address] Dec Charcot foot due to diabetes mellitus E11.610 [facility] [place] [address] [id number] [place] [address] Dec Neuropathy involving both lower extremities G57.93 [facility] [place] [address] [id number] [place] [address] Dec [facility] [place] [address] [id number] [place] [address] November [facility] [place] [address] [id number] [place] [address] November [facility] [place] [address] [id number] [place] [address] November [facility] [place] [address] [id number] [place] [address] November [facility] [place] [address] [id number] [place] [address] November Type 2 diabetes mellitus with hyperglycemia E11.65 ; FPC current use of insulin Z79.4 ; Morbid obesity due to excess calories E66.01 ; Charcot foot due to diabetes mellitus E11.610 ; Neuropathy involving both lower extremities G57.93 ; BMI 50.0-59.9, adult Z68.43 ; Depression, unspecified depression type F32.9 and Scrotal swelling N50.89 [facility] [place] [address] [id number] [place] [address] November [facility] [place] [address] [id number] [place] [address] Oct Charcot foot due to diabetes mellitus E11.610 [facility] [place] [address] [id number] [place] [address] Sep Type 2 diabetes mellitus with hyperglycemia E11.65 [facility] [place] [address] [id number] [place] [address] Sep Charcot foot due to diabetes mellitus E11.610 [facility] [place] [address] [id number] [place] [address] [facility] [place] [address] [id number] [place] [address] [facility] [place] [address] [id number] [place] [address] Sep Scrotal swelling N50.89 ; Fungal infection of the groin B35.6 and BMI 50.0-59.[address], [address] [facility] [place] [address] [id number] [place] [address] [address] Scrotal swelling [address]50.89 [facility] [place] [address] [id number] [place] [address] [address] Scrotal [address]50.89 [facility] [place] [address] [id number] [place] [address] Aug Scrotal swelling N50.89 [facility] [place] [address] [id number] [place] [address] 14 Aug Charcot foot due to diabetes mellitus E11.610 [facility] [place] [address] [id number] [place] [address] 09 Aug Type 2 diabetes mellitus with hyperglycemia E11.65 ; FPC current use of insulin Z79.4 ; Morbid obesity due to excess calories E66.01 ; Charcot foot due to diabetes mellitus E11.610 ; Depression, unspecified depression type F32.9 and Essential hypertension I10 [place] [address] [address] Aug, [facility] [place] [address] [id number] [place] [address] Aug Scrotal swelling N50.89 and Depression, unspecified depression type F32.9 [place] [address] [place] [id number] [address] Jul, [facility] [address] [address] Jul, [facility] [address] [facility] [id number] [place] [address] Jul, [facility] [place] [address] [id number] [place] [address] Jul Scrotal swelling N50.89 [facility] [place] [address] [id number] [place] [address] Jul [facility] [place] [address] [id number] [place] [address] Jul Scrotal swelling N50.89 [facility] [place] [address] [id number] [place] [address] Jul Charcot foot due to diabetes mellitus E11.610 [facility] [place] [address] [id number] [place] [address] Jul Depression, unspecified depression type F32.9 and BMI 50.0-59.9, adult Z68.43 [facility] [place] [address] [id number] [place] [address] Jun Depression, unspecified depression type F32.9 ; Charcot foot due to diabetes mellitus E11.610 and BMI 50.0-59.9, adult Z68.43 [facility] [place] [address] [id number] [place] [address] Jun [facility] [place] [address] [id number] [place] [address] 09 May BMI 40.0-44.9, adult Z68.41 ; Type 2 diabetes mellitus with hyperglycemia E11.65 ; Essential hypertension I10 ; Depression, unspecified depression type F32.9 ; Charcot foot due to diabetes mellitus E11.610 and intermediate project manager current use of insulin Z79.4 [facility] [place] [address] [id number] [place] [address] May [facility] [place] [address] [id number] [place] [address] May [facility] [place] [address] [id number] [place] [address] May [facility] [place] [address] [id number] [place] [address] Apr [place] [address] [facility] [id number] [place] [address] Apr, [facility] [place] [address] [id number] [place] [address] [facility] [place] [address] [id number] [place] [address] Apr Type 2 diabetes mellitus with hyperglycemia E11.65 and Depression, unspecified depression type F32.[address] [facility] [place] [address] [id number] [place] [address] Apr Encounter for immunization Z23 ; Type 2 diabetes mellitus with hyperglycemia E11.65 ; intermediate project manager current use of insulin Z79.4 ; Charcot foot due to diabetes mellitus E11.610 and Essential hypertension I10 [facility] [place] [address] [id number] [place] [address] Mar Essential hypertension I10 ; Charcot foot due to diabetes mellitus E11.610 and Type 2 diabetes mellitus with hyperglycemia E11.[address] [facility] [place] [address] [id number] [place] [address] Mar [place] [address] [facility] [id number] [place] [address] Feb, [facility] [place] [address] [id number] [place] [address] Feb Type 2 diabetes mellitus with hyperglycemia E11.65 ; Essential hypertension I10 ; intermediate project manager current use of insulin Z79.4 ; Morbid obesity due to excess calories E66.01 ; Charcot foot due to diabetes mellitus E11.610 and Depression, unspecified depression type F32.9 [facility] [place] [address] [id number] [place] [address] [facility] [place] [address] [id number] [place] [address] [facility] [place] [address] [id number] [place] [address] Jan [place] [address] [facility] [id number] [place] [address] Jan, [facility] [place] [address] [id number] [place] [address] Dec Charcot foot due to diabetes mellitus E11.610 [facility] [place] [address] [id number] [place] [address] November [facility] [place] [address] [id number] [place] [address] November Type 2 diabetes mellitus with hyperglycemia E11.65 ; intermediate project manager current use of insulin Z79.4 and Charcot foot due to diabetes mellitus E11.610 [facility] [place] [address] [id number] [place] [address] November Bronchitis J40 [facility] [place] [address] [id number] [place] [address] Oct Cellulitis of right lower extremity L03.115 and Charcot foot due to diabetes mellitus E11.610 [facility] [place] [address] [id number] [place] [address] Sep [facility] [address] [facility] [id number] [place] [address] Sep, [facility] [place] [address] [id number] [place] [address] Sep Bronchitis J40 [facility] [place] [address] [id number] [place] [address] Sep, [facility] [place] [address] [id number] [place] [address] Sep Bronchitis J40 [facility] [place] [address] [id number] [place] [address] Sep Type 2 diabetes mellitus with hyperglycemia E11.65 [facility] [place] [address] [id number] [place] [address] Sep [facility] [address] [facility] [id number] [place] [address] Aug, [facility] [place] [address] [id number] [place] [address] Aug Type 2 diabetes mellitus with hyperglycemia E11.65 ; Depression, unspecified depression type F32.9 ; Charcot foot due to diabetes mellitus E11.610 and Encounter for immunization Z23 [facility] [place] [address] [id number] [place] [address] [facility] [place] [address] [id number] [place] [address] Jul Type 2 diabetes mellitus with hyperglycemia E11.65 ; intermediate project manager current use of insulin Z79.4 ; Morbid obesity due to excess calories E66.01 and Charcot foot due to diabetes mellitus E11.[address] [facility] [place] [address] [id number] [place] [address] Jun Type 2 diabetes mellitus with hyperglycemia E11.65 ; FPC current use of insulin Z79.4 ; Morbid obesity due to excess calories E66.01 ; Charcot foot due to diabetes mellitus E11.610 and Encounter for immunization Z23 [place] [address] [place] [id number] [address] Jun, [place] [address] [place] [id number] [address] Jun, [facility] [place] [address] [id number] [place] [address] Jun Fever in other diseases R50.[address] [facility] [place] [address] [id number] [place] [address] [facility] [place] [address] [id number] [place] [address] [facility] [facility] [place] [address] [id number] [place] [address] May Type 2 diabetes mellitus with hyperglycemia E11.[address] [facility] [place] [address] [id number] [place] [address] May Type 2 diabetes mellitus with hyperglycemia E11.65 ; FPC current use of insulin Z79.4 ; Morbid [...]
--- OUTSIDE RECORDS SUMMARY | 2018-06-05 14:34 | XMS REPORT ---
Author Author CLAUDIA ARCHER [facility] Address [address] [place] [address] Care Team Providers Care Continuous Absorption Process Operator Name Role Phone CLAUDIA ARCHER Unavailable PROBLEMS Type Condition ICD9-CM Code YXZ63-BS Code Onset Dates Condition Status SNOMED Code Problem Charcot foot due to diabetes mellitus E11.610 Active 07811531 Problem Depression, unspecified depression type F32.9 Active 03226010 Problem Neuropathy involving both lower extremities G57.93 Active 788379901 Problem BMI 40.0-44.9, adult Z68.41 Active 101155324 Problem Type 2 diabetes mellitus with hyperglycemia E11.65 Active 20120136 Problem group home current use of insulin Z79.4 Active 516394382 Problem Essential hypertension I10 Active 54199698 Problem Morbid obesity due to excess calories E66.01 Active 733337773 ALLERGIES No Information ENCOUNTERS Encounter Location Date Diagnosis [facility] [address] [id number] [place] [address] Feb Type 2 diabetes mellitus with hyperglycemia E11.65 ; Charcot foot due to diabetes mellitus E11.610 and BMI 50.0-59.9, adult Z68.43 [facility] [place] [address] [id number] [place] [address] Feb [facility] [address] [facility] [id number] [place] [address] Feb, [facility] [place] [address] [id number] [place] [address] Jan Depression, unspecified depression type F32.9 [facility] [address] [id number] [place] [address] Jan Charcot foot due to diabetes mellitus E11.610 [facility] [place] [address] [facility] [id number] [place] [address] Dec, [facility] [place] [address] [id number] [place] [address] Dec Charcot foot due to diabetes mellitus E11.610 [facility] [place] [address] [id number] [place] [address] Dec Neuropathy involving both lower extremities G57.93 [facility] [place] [address] [id number] [place] [address] Dec [facility] [place] [address] [id number] [place] [address] November [facility] [place] [address] [id number] [place] [address] November [facility] [place] [address] [id number] [place] [address] November [facility] [place] [address] [id number] [place] [address] November [facility] [place] [address] [id number] [place] [address] November Type 2 diabetes mellitus with hyperglycemia E11.65 ; group home current use of insulin Z79.4 ; Morbid obesity due to excess calories E66.01 ; Charcot foot due to diabetes mellitus E11.610 ; Neuropathy involving both lower extremities G57.93 ; BMI 50.0-59.9, adult Z68.43 ; Depression, unspecified depression type F32.9 and Scrotal swelling N50.89 [facility] [place] [address] [id number] [place] [address] November [facility] [place] [address] [id number] [place] [address] Oct Charcot foot due to diabetes mellitus E11.610 [facility] [place] [address] [id number] [place] [address] Sep Type 2 diabetes mellitus with hyperglycemia E11.65 [facility] [place] [address] [id number] [place] [address] Sep [facility] [place] [address] [id number] [place] [address] Sep [facility] [place] [address] [id number] [place] [address] Sep Charcot foot due to diabetes mellitus E11.610 [facility] [place] [address] [id number] [place] [address] 08 Sep Scrotal swelling N50.89 ; Fungal infection of the groin B35.6 and BMI 50.0-59.9, adult Z68.43 [facility] [place] [address] [id number] [place] [address] Sep Scrotal swelling N50.89 [facility] [place] [address] [id number] [place] [address] Sep Scrotal swelling N50.89 [facility] [place] [address] [id number] [place] [address] Aug Scrotal swelling N50.89 [facility] [place] [address] [id number] [place] [address] 14 Aug Charcot foot due to diabetes mellitus E11.610 [facility] [place] [address] [id number] [place] [address] 09 Aug Type 2 diabetes mellitus with hyperglycemia E11.65 ; group home current use of insulin Z79.4 ; Morbid obesity due to excess calories E66.01 ; Charcot foot due to diabetes mellitus E11.610 ; Depression, unspecified depression type F32.9 and Essential hypertension I10 [place] [address] [place] [address] [id number] [address] Aug, [facility] [place] [address] [id number] [place] [address] Aug Scrotal swelling N50.89 and Depression, unspecified depression type F32.9 [place] [address] [id number] [address] Jul, [facility] [place] [address]00565100[place] [address] Jul, [facility] [address] [facility] [id number] [place] [address] Jul, [facility] [place] [address] [id number] [place] [address] Jul Scrotal swelling N50.89 [facility] [place] [address] [id number] [place] [address] Jul [facility] [place] [address] [id number] [place] [address] Jul Scrotal swelling N50.89 [facility] [place] [address] [id number] [place] [address] Jul Charcot foot due to diabetes mellitus E11.610 [facility] [place] [address] [id number] [place] [address] Jul Depression, unspecified depression type F32.9 and BMI 50.0-59.9, adult Z68.43 [facility] [place] [address] [id number] [place] [address] Jun Depression, unspecified depression type F32.9 ; Charcot foot due to diabetes mellitus E11.610 and BMI 50.0-59.9, adult Z68.43 [facility] [place] [address] [id number] [place] [address] Jun [facility] [place] [address] [id number] [place] [address] 09 May BMI 40.0-44.9, adult Z68.41 ; Type 2 diabetes mellitus with hyperglycemia E11.65 ; Essential hypertension I10 ; Depression, unspecified depression type F32.9 ; Charcot foot due to diabetes mellitus E11.610 and watermelon inspector current use of insulin Z79.4 [facility] [place] [address] [id number] [place] [address] May [facility] [place] [address] [id number] [place] [address] May [facility] [place] [address] [id number] [place] [address] May [facility] [place] [address] [id number] [place] [address] Apr [place] [address] [facility] [id number] [place] [address] Apr, [facility] [place] [address] [id number] [place] [address] Apr [facility] [place] [address] [id number] [place] [address] Apr Type 2 diabetes mellitus with hyperglycemia E11.65 and Depression, unspecified depression type F32.9 [facility] [place] [address] [id number] [place] [address] Apr Encounter for immunization Z23 ; Type 2 diabetes mellitus with hyperglycemia E11.65 ; watermelon inspector current use of insulin Z79.4 ; Charcot foot due to diabetes mellitus E11.610 and Essential hypertension I10 [facility] [place] [address] [id number] [place] [address] Mar Essential hypertension I10 ; Charcot foot due to diabetes mellitus E11.610 and Type 2 diabetes mellitus with hyperglycemia E11.65 [facility] [place] [address] [id number] [place] [address] Mar [place] [address] [facility] [id number] [place] [address] Feb, [facility] [place] [address] [id number] [place] [address] Feb Type 2 diabetes mellitus with hyperglycemia E11.65 ; Essential hypertension I10 ; watermelon inspector current use of insulin Z79.4 ; Morbid obesity due to excess calories E66.01 ; Charcot foot due to diabetes mellitus E11.610 and Depression, unspecified depression type F32.9 [facility] [place] [address] [id number] [place] [address] Jan [facility] [place] [address] [id number] [place] [address] Jan [facility] [place] [address] [id number] [place] [address] Jan [place] [address] [facility] [id number] [place] [address] Jan, [facility] [place] [address] [id number] [place] [address] Dec Charcot foot due to diabetes mellitus E11.610 [facility] [place] [address] [id number] [place] [address] November [facility] [place] [address] [id number] [place] [address] November Type 2 diabetes mellitus with hyperglycemia E11.65 ; watermelon inspector current use of insulin Z79.4 and Charcot foot due to diabetes mellitus E11.610 [facility] [place] [address] [id number] [place] [address] November Bronchitis J40 [facility] [place] [address] [id number] [place] [address] Oct Cellulitis of right lower extremity L03.115 and Charcot foot due to diabetes mellitus E11.610 [facility] [place] [address] [id number] [place] [address] Sep [facility] [place] [address] [facility] [id number] [place] [address] Sep, [facility] [place] [address] [id number] [place] [address] Sep Bronchitis J40 [facility] [address] [id number] [place] [address] Sep, [facility] [place] [address] [id number] [place] [address] Sep Bronchitis J40 [facility] [place] [address] [id number] [place] [address] Sep Type 2 diabetes mellitus with hyperglycemia E11.65 [facility] [place] [address] [id number] [place] [address] Sep [facility] [place] [address] [facility] [id number] [place] [address] Aug, [facility] [place] [address] [id number] [place] [address] Aug Type 2 diabetes mellitus with hyperglycemia E11.65 ; Depression, unspecified depression type F32.9 ; Charcot foot due to diabetes mellitus E11.610 and Encounter for immunization Z23 [facility] [place] [address] [id number] [place] [address] Aug [facility] [address] [id number] [place] [address] Jul Type 2 diabetes mellitus with hyperglycemia E11.65 ; watermelon inspector current use of insulin Z79.4 ; Morbid obesity due to excess calories E66.01 and Charcot foot due to diabetes mellitus E11.610 [facility] [address] [id number] [place] [address] Jun Type 2 diabetes mellitus with hyperglycemia E11.65 ; group home current use of insulin Z79.4 ; Morbid obesity due to excess calories E66.01 ; Charcot foot due to diabetes mellitus E11.610 and Encounter for immunization Z23 [place] [address] [id number] [address] Jun, [place] [address] [address] [id number] [address] Jun, [facility] [place] [address] [id number] [place] [address] Jun Fever in other diseases R50.81 [facility] [place] [address] [id number] [place] [address] May [email or web address] [place] [address] [id number] [place] [address] May [email or web address] [place] [address] [id number] [place] [address] May Type 2 diabetes mellitus with hyperglycemia E11.65 [facility] [address] [id number] [place] [address] May Type 2 diabetes mellitus with hyperglycemia E11.65 ; group home current use of insulin Z79.4 ; Morbid obesity due to excess calories E66.01 ; Charcot foot due to diabetes mellitus E11.610 and Depression, unspecified depression type F32.9 IMMUNIZATIONS No Known Immunizations SOCIAL HISTORY Never Assessed REASON FOR VISIT PALS arrival PLAN OF CARE VITAL SIGNS MEDICATIONS No [...]
--- OUTSIDE RECORDS SUMMARY | 2018-06-05 14:35 | XMS REPORT ---
Author Author CLAUDIA ARCHER [facility] Address [address] [place] [address] Care Team Providers Care Watershed Coordinator Name Role Phone CLAUDIA ARCHER Unavailable PROBLEMS Type Condition ICD9-CM Code RJV02-DA Code Onset Dates Condition Status SNOMED Code Problem Charcot foot due to diabetes mellitus E11.610 Active 14493532 Problem Depression, unspecified depression type F32.9 Active 62111754 Problem Neuropathy involving both lower extremities G57.93 Active 717900879 Problem BMI 40.0-44.9, adult Z68.41 Active 784931295 Problem Type 2 diabetes mellitus with hyperglycemia E11.65 Active 71395973 Problem shelter current use of insulin Z79.4 Active 804142385 Problem Essential hypertension I10 Active 45955230 Problem Morbid obesity due to excess calories E66.01 Active 557339714 ALLERGIES No Known Allergies ENCOUNTERS Encounter Location Date Diagnosis [facility] [address] [id number] [place] [address] Feb Type 2 diabetes mellitus with hyperglycemia E11.65 ; Charcot foot due to diabetes mellitus E11.610 and BMI 50.0-59.9, adult Z68.43 [facility] [place] [address] [id number] [place] [address] Feb [facility] [address] [facility] [id number] [place] [address] Feb, [facility] [place] [address] [id number] [place] [address] Jan Depression, unspecified depression type F32.9 [facility] [address] [id number] [place] [address] Jan Charcot foot due to diabetes mellitus E11.610 [facility] [address] [facility] [id number] [place] [address] Dec, [facility] [place] [address] [id number] [place] [address] Dec Charcot foot due to diabetes mellitus E11.610 [facility] [place] [address] [id number] [place] [address] Dec Neuropathy involving both lower extremities G57.93 [facility] [place] [address] [id number] [place] [address] Dec [facility] [place] [address] [id number] [place] [address] November [facility] [place] [address] [id number] [place] [address] November [facility] [place] [address] [id number] [place] [address] November [facility] [place] [address] [id number] [place] [address] November [facility] [place] [address] [id number] [place] [address] November Type 2 diabetes mellitus with hyperglycemia E11.65 ; shelter current use of insulin Z79.4 ; Morbid obesity due to excess calories E66.01 ; Charcot foot due to diabetes mellitus E11.610 ; Neuropathy involving both lower extremities G57.93 ; BMI 50.0-59.9, adult Z68.43 ; Depression, unspecified depression type F32.9 and Scrotal swelling N50.89 [facility] [place] [address] [id number] [place] [address] November [facility] [place] [address] [id number] [place] [address] Oct Charcot foot due to diabetes mellitus E11.610 [facility] [place] [address] [id number] [place] [address] Sep Type 2 diabetes mellitus with hyperglycemia E11.65 [facility] [place] [address] [id number] [place] [address] Sep [facility] [address] [id number] [place] [address] 15 Sep [facility] [place] [address] [id number] [place] [address] Sep Charcot foot due to diabetes mellitus E11.610 [facility] [place] [address] [id number] [place] [address] 08 Sep Scrotal swelling N50.89 ; Fungal infection of the groin B35.6 and BMI 50.0-59.9, adult Z68.43 [facility] [place] [address] [id number] [place] [address] 05 Sep Scrotal swelling N50.89 [facility] [place] [address] [id number] [place] [address] Sep Scrotal swelling N50.89 [facility] [place] [address] [id number] [place] [address] Aug Scrotal swelling N50.89 [facility] [place] [address] [id number] [place] [address] 14 Aug Charcot foot due to diabetes mellitus E11.610 [facility] [place] [address] [id number] [place] [address] 09 Aug Type 2 diabetes mellitus with hyperglycemia E11.65 ; master ship current use of insulin Z79.4 ; Morbid obesity due to excess calories E66.01 ; Charcot foot due to diabetes mellitus E11.610 ; Depression, unspecified depression type F32.9 and Essential hypertension I10 [place] [address] [place] [id number] [address] Aug, [facility] [place] [address] [id number] [place] [address] Aug Scrotal swelling N50.89 and Depression, unspecified depression type F32.9 [place] [address] [id number] [address] Jul, [facility] [address] [id number] [address] Jul, [facility] [facility] [address] [id number] [place] [id number] Jul, [facility] [place] [address] [id number] [place] [address] Jul Scrotal swelling N50.89 [facility] [place] [address] [id number] [place] [address] Jul [facility] [place] [address] [id number] [place] [address] Jul Scrotal swelling N50.89 [facility] [place] [address] [id number] [place] [address] Jul Charcot foot due to diabetes mellitus E11.610 [facility] [place] [address] [id number] [place] [address] Jul Depression, unspecified depression type F32.9 and BMI 50.0-59.9, adult Z68.43 [facility] [place] [address] [id number] [place] [address] Jun Depression, unspecified depression type F32.9 ; Charcot foot due to diabetes mellitus E11.610 and BMI 50.0-59.9, adult Z68.43 [facility] [place] [address] [id number] [place] [address] Jun [facility] [place] [address] [id number] [place] [address] May BMI 40.0-44.9, adult Z68.41 ; Type 2 diabetes mellitus with hyperglycemia E11.65 ; Essential hypertension I10 ; Depression, unspecified depression type F32.9 ; Charcot foot due to diabetes mellitus E11.610 and master ship current use of insulin Z79.4 [facility] [place] [address] [id number] [place] [address] May [facility] [place] [address] [id number] [place] [address] May [facility] [place] [address] [id number] [place] [address] May [facility] [place] [address] [id number] [place] [address] Apr [place] [address] [facility] [id number] [place] [address] Apr, [facility] [place] [address] [id number] [place] [address] Apr [facility] [place] [address] [id number] [place] [address] Apr Type 2 diabetes mellitus with hyperglycemia E11.65 and Depression, unspecified depression type F32.9 [facility] [place] [address] [id number] [place] [address] Apr Encounter for immunization Z23 ; Type 2 diabetes mellitus with hyperglycemia E11.65 ; shelter current use of insulin Z79.4 ; Charcot foot due to diabetes mellitus E11.610 and Essential hypertension I10 [facility] [place] [address] [id number] [place] [address] Mar Essential hypertension I10 ; Charcot foot due to diabetes mellitus E11.610 and Type 2 diabetes mellitus with hyperglycemia E11.65 [facility] [place] [address] [id number] [place] [address] Mar [place] [address] [facility] [id number] [place] [address] Feb, [facility] [place] [address] [id number] [place] [address] Feb Type 2 diabetes mellitus with hyperglycemia E11.65 ; Essential hypertension I10 ; master ship current use of insulin Z79.4 ; Morbid obesity due to excess calories E66.01 ; Charcot foot due to diabetes mellitus E11.610 and Depression, unspecified depression type F32.9 [facility] [place] [address] [id number] [place] [address] Jan [facility] [place] [address] [id number] [place] [address] Jan [facility] [address] [id number] [place] [address] Jan [place] [address] [facility] [id number] [place] [address] Jan, [facility] [place] [address] [id number] [place] [address] Dec Charcot foot due to diabetes mellitus E11.610 [facility] [place] [address] [id number] [place] [address] November [facility] [place] [address] [id number] [place] [address] November Type 2 diabetes mellitus with hyperglycemia E11.65 ; shelter current use of insulin Z79.4 and Charcot foot due to diabetes mellitus E11.610 [facility] [place] [address] [id number] [place] [address] November Bronchitis J40 [facility] [place] [address] [id number] [place] [address] Oct Cellulitis of right lower extremity L03.115 and Charcot foot due to diabetes mellitus E11.610 [facility] [place] [address] [id number] [place] [address] Sep [facility] [address] [facility] [id number] [place] [address] Sep, [facility] [place] [address] [id number] [place] [address] Sep Bronchitis J40 [facility] [address] [id number] [place] [address] Sep, [facility] [place] [address] [id number] [place] [address] Sep Bronchitis J40 [facility] [place] [address] [id number] [place] [address] Sep Type 2 diabetes mellitus with hyperglycemia E11.65 [facility] [place] [address] [id number] [place] [address] Sep [facility] [address] [facility] [id number] [place] [address] Aug, [facility] [place] [address] [id number] [place] [address] Aug Type 2 diabetes mellitus with hyperglycemia E11.65 ; Depression, unspecified depression type F32.9 ; Charcot foot due to diabetes mellitus E11.610 and Encounter for immunization Z23 [facility] [place] [address] [id number] [place] [address] Aug [facility] [address] [id number] [place] [address] Jul Type 2 diabetes mellitus with hyperglycemia E11.65 ; shelter current use of insulin Z79.4 ; Morbid obesity due to excess calories E66.01 and Charcot foot due to diabetes mellitus E11.610 [facility] [place] [address] [id number] [place] [address] Jun Type 2 diabetes mellitus with hyperglycemia E11.65 ; master ship current use of insulin Z79.4 ; Morbid obesity due to excess calories E66.01 ; Charcot foot due to diabetes mellitus E11.610 and Encounter for immunization Z23 [place] [address] [facility] [id number] [place] [address] Jun, [place] [address] [place] [address] [id number] [address] Jun, [facility] [place] [address] [id number] [place] [address] Jun Fever in other diseases R50.81 [facility] [place] [address] [id number] [place] [address] May [facility] [address] [id number] [place] [address] May [facility] [address] [id number] [place] [address] May Type 2 diabetes mellitus with hyperglycemia E11.65 [facility] [address] [id number] [place] [address] May Type 2 diabetes mellitus with hyperglycemia E11.65 ; shelter current use of insulin Z79.4 ; Morbid obesity due to excess calories E66.01 ; Charcot foot due to diabetes mellitus E11.610 and Depression, unspecified depression type F32.9 IMMUNIZATIONS No Known Immunizations SOCIAL HISTORY Never Assessed REASON FOR VISIT Diabetes check up, A1C. SOHAIL casas PLAN OF CARE Activity Details Follow Up 4 Weeks Reason:fu neuropathy VITAL SIGNS Height 74 in 2017-11-21 Weight 443.6 lbs 2017-11-21 Temperature 97.4 degrees Fahrenheit 2017-11-21 Heart Rate 102 bpm 2017-11-21 Respiratory Rate 20 2017-11-21 BMI 56.95 kg/m2 2017-11-21 Blood pressure systolic 142 mmHg 2017-11-21 Blood pressure diastolic 72 mmHg 2017-11-21 MEDICATIONS Medication Instructions Dosage Frequency Start Date End Date Duration Status Atorvastatin Calcium 80 MG Orally Once a day 1/2 tablet 24h May, 90 days Active Glucocard Expression Test - subcutaneously 4 times a day- 100 strips as directed Mar, 30 days Active Lisinopril 40 MG TAKE 1 TABLET BY MOUTH ONCE DAILY Active Percocet 10-325 MG Orally every 6 hrs 1 tablet as needed 6h November, Dec, 28 days Active MetFORMIN HCl ER 500 MG TAKE 2 TABLETS BY MOUTH TWICE DAILY Active Gabapentin 600 MG Orally Three times a day 1 capsule 8h Aug, 30 days Active Toujeo SoloStar 300 UNIT/ML Subcutaneous Once a day 75 units 24h Active Multivitamin Men Orally PRN 1 tablet Active Glucocard Expression Monitor w/Device as directed Mar, Active Pen [place] 32G X 4 MM subcutaneously 3 times a day as directed 8h Sep, 90 days Active Ibuprofen 200 MG Orally PRN 4 tab Active Viibryd 20 mg Orally Once a day 1 tablet with food 24h Jun, Active Bydureon 2 MG Subcutaneous weekly 2 mg November, 90 days Active NovoLog 100 UNIT/ML Subcutaneous 3 times a day 50 unit at meals 8h Active RESULTS Name Result Date Reference Range A1C (IN HOUSE) A1C IN HOUSE 7.2 4.3 - 5.6 % Previous A1c 6.9 Lot [id number] Exp date 09/2019 PROCEDURES Procedure Date Ordered Result Body Site GLYCATED HEMOGLOBIN TEST November 21, 2017 INSTRUCTIONS MEDICATIONS ADMINISTERED No Known Medications MEDICAL (GENERAL) HISTORY Type Description Date Medical History type II diabetes Medical History charcoat Medical History depression Medical History Diabetic ulcer on bottom of foot per wound care Surgical History lap angel Surgical History Lt knee scope Surgical History circumscison revision Surgical History Lt foot Hospitalization History surgeries
--- OUTSIDE RECORDS SUMMARY | 2018-06-05 14:35 | XMS REPORT ---
Author Author CLAUDIA ARCHER [facility] Address [address] [place] [address] Care Team Providers Care Confidential Investigator Name Role Phone CLAUDIA ARCHER Unavailable PROBLEMS Type Condition ICD9-CM Code BOW81-AV Code Onset Dates Condition Status SNOMED Code Problem Charcot foot due to diabetes mellitus E11.610 Active 00502006 Problem Depression, unspecified depression type F32.9 Active 72856097 Problem Neuropathy involving both lower extremities G57.93 Active 459062540 Problem BMI 40.0-44.9, adult Z68.41 Active 442665371 Problem Type 2 diabetes mellitus with hyperglycemia E11.65 Active 50809417 Problem nursing home current use of insulin Z79.4 Active 413626526 Problem Essential hypertension I10 Active 97357653 Problem Morbid obesity due to excess calories E66.01 Active 959133327 ALLERGIES No Information ENCOUNTERS Encounter Location Date Diagnosis [facility] [place] [address] [id number] [place] [address] Feb [facility] [address] [facility] [id number] [id number] Feb, [facility] [place] [address] [id number] [place] [address] Jan Depression, unspecified depression type F32.9 [facility] [address] [id number] [place] [address] Jan Charcot foot due to diabetes mellitus E11.610 [facility] [address] [facility] [id number] [place] [address] Dec, [facility] [place] [address] [id number] [place] [address] Dec Charcot foot due to diabetes mellitus E11.610 [facility] [place] [address] [id number] [place] [address] Dec Neuropathy involving both lower extremities G57.93 [facility] [place] [address] [id number] [place] [address] Dec [facility] [place] [address] [id number] [place] [address] November [facility] [place] [address] [id number] [place] [address] November [facility] [place] [address] [id number] [place] [address] November [facility] [place] [address] [id number] [place] [address] November [facility] [place] [address] [id number] [place] [address] November Type 2 diabetes mellitus with hyperglycemia E11.65 ; remote computer terminal operator current use of insulin Z79.4 ; Morbid obesity due to excess calories E66.01 ; Charcot foot due to diabetes mellitus E11.610 ; Neuropathy involving both lower extremities G57.93 ; BMI 50.0-59.9, adult Z68.43 ; Depression, unspecified depression type F32.9 and Scrotal swelling N50.89 [facility] [place] [address] [id number] [place] [address] November [facility] [place] [address] [id number] [place] [address] Oct Charcot foot due to diabetes mellitus E11.610 [facility] [place] [address] [id number] [place] [address] Sep Type 2 diabetes mellitus with hyperglycemia E11.65 [facility] [place] [address] [id number] [place] [address] Sep Charcot foot due to diabetes mellitus E11.610 [facility] [place] [address] [id number] [place] [address] Sep [facility] [place] [address] [id number] [place] [address] Sep [facility] [place] [address] [id number] [place] [address] Sep Scrotal swelling N50.89 ; Fungal infection of the groin B35.6 and BMI 50.0-59.9, adult Z68.43 [facility] [place] [address] [id number] [place] [address] Sep Scrotal swelling N50.89 [facility] [place] [address] [id number] [place] [address] Sep Scrotal swelling N50.89 [facility] [place] [address] [id number] [place] [address] Aug Scrotal swelling N50.89 [facility] [place] [address] [id number] [place] [address] Aug Charcot foot due to diabetes mellitus E11.610 [facility] [place] [address] [id number] [place] [address] Aug Type 2 diabetes mellitus with hyperglycemia E11.65 ; remote computer terminal operator current use of insulin Z79.4 ; Morbid obesity due to excess calories E66.01 ; Charcot foot due to diabetes mellitus E11.610 ; Depression, unspecified depression type F32.9 and Essential hypertension I10 [place] [address] [id number] [address] Aug, [facility] [place] [address] [id number] [place] [address] Aug Scrotal swelling N50.89 and Depression, unspecified depression type F32.9 [place] [address] [id number] [address] Jul, [place] [address] [facility] [id number] [address] Jul, [facility] GARC[address] [id number] [place] [address] Jul, [facility] [place] [address] [id number] [place] [address] Jul Scrotal swelling N50.89 [facility] [place] [address] [id number] [place] [address] Jul [facility] [place] [address] [id number] [place] [address] Jul Scrotal swelling N50.89 [facility] [place] [address] [id number] [place] [address] Jul Charcot foot due to diabetes mellitus E11.610 [facility] [place] [address] [id number] [place] [address] Jul Depression, unspecified depression type F32.9 and BMI 50.0-59.9, adult Z68.43 [facility] [place] [address] [id number] [place] [address] Jun Depression, unspecified depression type F32.9 ; Charcot foot due to diabetes mellitus E11.610 and BMI 50.0-59.9, adult Z68.43 [facility] [place] [address] [id number] [place] [address] Jun [facility] [place] [address] [id number] [place] [address] 09 May BMI 40.0-44.9, adult Z68.41 ; Type 2 diabetes mellitus with hyperglycemia E11.65 ; Essential hypertension I10 ; Depression, unspecified depression type F32.9 ; Charcot foot due to diabetes mellitus E11.610 and remote computer terminal operator current use of insulin Z79.4 [facility] [place] [address] [id number] [place] [address] May [facility] [place] [address] [id number] [place] [address] May [facility] [place] [address] [id number] [place] [address] May [facility] [place] [address] [id number] [place] [address] Apr [facility] [address] [facility] [id number] [place] [address] Apr, [facility] [place] [address] [id number] [place] [address] Apr [facility] [place] [address] [id number] [place] [address] Apr Type 2 diabetes mellitus with hyperglycemia E11.65 and Depression, unspecified depression type F32.9 [facility] [place] [address] [id number] [place] [address] Apr Encounter for immunization Z23 ; Type 2 diabetes mellitus with hyperglycemia E11.65 ; remote computer terminal operator current use of insulin Z79.4 ; Charcot foot due to diabetes mellitus E11.610 and Essential hypertension I10 [facility] [place] [address] [id number] [place] [address] Mar Essential hypertension I10 ; Charcot foot due to diabetes mellitus E11.610 and Type 2 diabetes mellitus with hyperglycemia E11.65 [facility] [place] [address] [id number] [place] [address] Mar [place] [address] [id number] [place] [address] Feb, [facility] [place] [address] [id number] [place] [address] Feb Type 2 diabetes mellitus with hyperglycemia E11.65 ; Essential hypertension I10 ; nursing home current use of insulin Z79.4 ; Morbid obesity due to excess calories E66.01 ; Charcot foot due to diabetes mellitus E11.610 and Depression, unspecified depression type F32.9 [facility] [place] [address] [id number] [place] [address] Jan [facility] [place] [address] [id number] [place] [address] Jan [facility] [place] [address] [id number] [place] [address] Jan [place] [address] [facility] [id number] [place] [address] Jan, [facility] [place] [address] [id number] [place] [address] Dec Charcot foot due to diabetes mellitus E11.610 [facility] [place] [address] [id number] [place] [address] November [facility] [place] [address] [id number] [place] [address] November Type 2 diabetes mellitus with hyperglycemia E11.65 ; remote computer terminal operator current use of insulin Z79.4 and Charcot foot due to diabetes mellitus E11.610 [facility] [place] [address] [id number] [place] [address] November Bronchitis J40 [facility] [place] [address] [id number] [place] [address] Oct Cellulitis of right lower extremity L03.115 and Charcot foot due to diabetes mellitus E11.610 [facility] [place] [address] [id number] [place] [address] Sep [facility] [address] [facility] [id number] [place] [address] Sep, [facility] [place] [address] [id number] [place] [address] Sep Bronchitis J40 [facility] [address] [id number] [place] [id number] Sep, [facility] [place] [address] [id number] [place] [address] Sep Bronchitis J40 [facility] [place] [address] [id number] [place] [address] Sep Type 2 diabetes mellitus with hyperglycemia E11.65 [facility] [place] [address] [id number] [place] [address] Sep [facility] [address] [facility] [id number] [place] [address] Aug, [facility] [place] [address] [id number] [place] [address] Aug Type 2 diabetes mellitus with hyperglycemia E11.65 ; Depression, unspecified depression type F32.9 ; Charcot foot due to diabetes mellitus E11.610 and Encounter for immunization Z23 [facility] [place] [address] [id number] [place] [address] Aug [facility] [place] LOYOLAE [id number] [place] [address] Jul Type 2 diabetes mellitus with hyperglycemia E11.65 ; remote computer terminal operator current use of insulin Z79.4 ; Morbid obesity due to excess calories E66.01 and Charcot foot due to diabetes mellitus E11.610 [facility] [place] [address] [id number] [place] [address] Jun Type 2 diabetes mellitus with hyperglycemia E11.65 ; remote computer terminal operator current use of insulin Z79.4 ; Morbid obesity due to excess calories E66.01 ; Charcot foot due to diabetes mellitus E11.610 and Encounter for immunization Z23 [place] [address] [id number] [place] [address] Jun, [place] [address] [id number] [address] Jun, [facility] [address] [id number] [place] [address] Jun Fever in other diseases R50.81 [facility] [place] [id number] [place] [address] May [facility] [place] [address] [id number] [place] [address] May [facility] [place] [address] [id number] [place] [address] May Type 2 diabetes mellitus with hyperglycemia E11.65 [facility] [place] [address] [id number] [place] [address] May Type 2 diabetes mellitus with hyperglycemia E11.65 ; remote computer terminal operator current use of insulin Z79.4 ; Morbid obesity due to excess calories E66.01 ; Charcot foot due to diabetes mellitus E11.610 and Depression, unspecified depression type F32.9 IMMUNIZATIONS No Known Immunizations SOCIAL HISTORY Never Assessed REASON FOR VISIT Requests return call PLAN OF CARE VITAL SIGNS MEDICATIONS Unknown [...]
--- OUTSIDE RECORDS SUMMARY | 2018-06-05 14:35 | XMS REPORT ---
Author Author CLAUDIA ARCHER [facility] Address [address] [place] [address] Care Team Providers Care Retail Sales Manager Name Role Phone CLAUDIA ARCHER Unavailable PROBLEMS Type Condition ICD9-CM Code GFE33-SR Code Onset Dates Condition Status SNOMED Code Problem Charcot foot due to diabetes mellitus E11.610 Active 95947276 Problem Depression, unspecified depression type F32.9 Active 77036857 Problem Neuropathy involving both lower extremities G57.93 Active 410051719 Problem BMI 40.0-44.9, adult Z68.41 Active 787218909 Problem Type 2 diabetes mellitus with hyperglycemia E11.65 Active 59381953 Problem senior living current use of insulin Z79.4 Active 654360503 Problem Essential hypertension I10 Active 29757515 Problem Morbid obesity due to excess calories E66.01 Active 235090087 ALLERGIES No Information ENCOUNTERS Encounter Location Date Diagnosis [facility] [address] [facility] [id number] [place] [id number] Feb, [facility] [place] [address] [id number] [place] [address] Jan Depression, unspecified depression type F32.9 [facility] [place] [address] [id number] [place] [address] Jan Charcot foot due to diabetes mellitus E11.610 [facility] [address] [facility] [id number] [place] [address] Dec, [facility] [place] [address] [id number] [place] [address] Dec Charcot foot due to diabetes mellitus E11.610 [facility] [place] [address] [id number] [place] [address] Dec Neuropathy involving both lower extremities G57.93 [facility] [place] [address] [id number] [place] [address] Dec [facility] [place] [address] [id number] [place] [address] November [facility] [place] [address] [id number] [place] [address] November [facility] [place] [address] [id number] [place] [address] November [facility] [place] [address] [id number] [place] [address] November [facility] [place] [address] [id number] [place] [address] November Type 2 diabetes mellitus with hyperglycemia E11.65 ; senior living current use of insulin Z79.4 ; Morbid obesity due to excess calories E66.01 ; Charcot foot due to diabetes mellitus E11.610 ; Neuropathy involving both lower extremities G57.93 ; BMI 50.0-59.9, adult Z68.43 ; Depression, unspecified depression type F32.9 and Scrotal swelling N50.89 [facility] [place] [address] [id number] [place] [address] November [facility] [place] [address] [id number] [place] [address] Oct Charcot foot due to diabetes mellitus E11.610 [facility] [place] [address] [id number] [place] [address] Sep Type 2 diabetes mellitus with hyperglycemia E11.65 [facility] [place] [address] [id number] [place] [address] Sep Charcot foot due to diabetes mellitus E11.610 [facility] [place] [address] [id number] [place] [address] Sep [facility] [place] [address] [id number] [place] [address] Sep [facility] [place] [address] [id number] [place] [address] Sep Scrotal swelling N50.89 ; Fungal infection of the groin B35.6 and BMI 50.0-59.9, adult Z68.43 [facility] [place] [address] [id number] [place] [address] Sep Scrotal swelling N50.89 [facility] [place] [address] [id number] [place] [address] Sep Scrotal swelling N50.89 [facility] [place] [address] [id number] [place] [address] Aug Scrotal swelling N50.89 [facility] [place] [address] [id number] [place] [address] Aug Charcot foot due to diabetes mellitus E11.610 [facility] [place] [address] [id number] [place] [address] Aug Type 2 diabetes mellitus with hyperglycemia E11.65 ; termite control service representative current use of insulin Z79.4 ; Morbid obesity due to excess calories E66.01 ; Charcot foot due to diabetes mellitus E11.610 ; Depression, unspecified depression type F32.9 and Essential hypertension I10 [place] [address] [facility] [id number] [place] [address] Aug, [facility] [place] [address] [id number] [place] [address] Aug Scrotal swelling N50.89 and Depression, unspecified depression type F32.9 [place] [address] [facility] [id number] [place] [address] Jul, [place] [address] [facility] [id number] [place] [address] Jul, [facility] [place] [address] [id number] [place] [id number] Jul, [facility] [place] [address] [id number] [place] [address] Jul Scrotal swelling N50.89 [facility] [place] [address] [id number] [place] [address] Jul [facility] [place] [address] [id number] [place] [address] Jul Scrotal swelling N50.89 [facility] [place] [address] [id number] [place] [address] Jul Charcot foot due to diabetes mellitus E11.610 [facility] [place] [address] [id number] [place] [address] Jul Depression, unspecified depression type F32.9 and BMI 50.0-59.9, adult Z68.43 [facility] [place] [address] [id number] [place] [address] Jun Depression, unspecified depression type F32.9 ; Charcot foot due to diabetes mellitus E11.610 and BMI 50.0-59.9, adult Z68.43 [facility] [place] [address] [id number] [place] [address] Jun [facility] [place] [address] [id number] [place] [address] 09 May BMI 40.0-44.9, adult Z68.41 ; Type 2 diabetes mellitus with hyperglycemia E11.65 ; Essential hypertension I10 ; Depression, unspecified depression type F32.9 ; Charcot foot due to diabetes mellitus E11.610 and senior living current use of insulin Z79.4 [facility] [place] [address] [id number] [place] [address] May [facility] [place] [address] [id number] [place] [address] May [facility] [place] [address] [id number] [place] [address] May [facility] [place] [address] [id number] [place] [address] Apr [facility] [address] [facility] [id number] [place] [address] Apr, [facility] [place] [address] [id number] [place] [address] Apr [facility] [place] [address] [id number] [place] [address] Apr Type 2 diabetes mellitus with hyperglycemia E11.65 and Depression, unspecified depression type F32.9 [facility] [place] [address] [id number] [place] [address] Apr Encounter for immunization Z23 ; Type 2 diabetes mellitus with hyperglycemia E11.65 ; senior living current use of insulin Z79.4 ; Charcot foot due to diabetes mellitus E11.610 and Essential hypertension I10 [facility] [place] [address] [id number] [place] [address] Mar Essential hypertension I10 ; Charcot foot due to diabetes mellitus E11.610 and Type 2 diabetes mellitus with hyperglycemia E11.65 [facility] [place] [address] [id number] [place] [address] Mar [place] [address] [facility] [id number] [place] [address] Feb, [facility] [place] [address] [id number] [place] [address] Feb Type 2 diabetes mellitus with hyperglycemia E11.65 ; Essential hypertension I10 ; termite control service representative current use of insulin Z79.4 ; Morbid obesity due to excess calories E66.01 ; Charcot foot due to diabetes mellitus E11.610 and Depression, unspecified depression type F32.9 [facility] [place] [address] [id number] [place] [address] Jan [facility] [place] [address] [id number] [place] [address] Jan [facility] [place] [address] [id number] [place] [address] Jan [place] [address] [facility] [id number] [place] [address] Jan, [facility] [place] [address] [id number] [place] [address] Dec Charcot foot due to diabetes mellitus E11.610 [facility] [place] [address] [id number] [place] [address] November [facility] [place] [address] [id number] [place] [address] November Type 2 diabetes mellitus with hyperglycemia E11.65 ; senior living current use of insulin Z79.4 and Charcot foot due to diabetes mellitus E11.610 [facility] [place] [address] [id number] [place] [address] November Bronchitis J40 [facility] [place] [address] [id number] [place] [address] Oct Cellulitis of right lower extremity L03.115 and Charcot foot due to diabetes mellitus E11.610 [facility] [place] [address] [id number] [place] [address] Sep [facility] [address] [facility] [id number] [place] [address] Sep, [facility] [place] [address] [id number] [place] [address] Sep Bronchitis J40 [facility] [address] [id number] [place] [address] Sep, [facility] [place] [address] [id number] [place] [address] Sep Bronchitis J40 [facility] [place] [address] [id number] [place] [address] Sep Type 2 diabetes mellitus with hyperglycemia E11.65 [facility] [place] [address] [id number] [place] [address] Sep [facility] [address] [facility] [id number] [place] [address] Aug, [facility] [place] [address] [id number] [place] [address] Aug Type 2 diabetes mellitus with hyperglycemia E11.65 ; Depression, unspecified depression type F32.9 ; Charcot foot due to diabetes mellitus E11.610 and Encounter for immunization Z23 [facility] [place] [address] [id number] [place] [address]Aug [facility] [place] [address] [id number] [place] [address] Jul Type 2 diabetes mellitus with hyperglycemia E11.65 ; senior living current use of insulin Z79.4 ; Morbid obesity due to excess calories E66.01 and Charcot foot due to diabetes mellitus E11.610 [facility] [place] [address] [id number] [place] [address] Jun Type 2 diabetes mellitus with hyperglycemia E11.65 ; senior living current use of insulin Z79.4 ; Morbid obesity due to excess calories E66.01 ; Charcot foot due to diabetes mellitus E11.610 and Encounter for immunization Z23 [facility] [address] [place] [id number] [place] [address] Jun, [facility] [address] [facility] [id number] [place] [address] Jun, [facility] [place] [address] [id number] [place] [address] Jun Fever in other diseases R50.81 [facility] [place] [address] [id number] [place] [address] May [facility] [place] [address] [id number] [place] [address] May [facility] [place] [address] [id number] [place] [address] May Type 2 diabetes mellitus with hyperglycemia E11.65 [facility] [place] [address] [id number] [place] [address] May Type 2 diabetes mellitus with hyperglycemia E11.65 ; senior living current use of insulin Z79.4 ; Morbid obesity due to excess calories E66.01 ; Charcot foot due to diabetes mellitus E11.610 and Depression, unspecified depression type F32.9 IMMUNIZATIONS No Known Immunizations SOCIAL HISTORY Never Assessed REASON FOR VISIT PALS arrival PLAN OF CARE VITAL SIGNS MEDICATIONS Unknown [...]
--- OUTSIDE RECORDS SUMMARY | 2018-06-05 14:35 | XMS REPORT ---
Author [facility] [address] [place] [address] Care Team Providers Care Pharm Tech Name Role Phone CLAUDIA ARCHER Unavailable PROBLEMS Type Condition ICD9-CM Code [id number] Code Onset Dates Condition Status SNOMED Code Problem Charcot foot due to diabetes mellitus E11.610 Active 93865505 Problem Depression, unspecified depression type F32.9 Active 78768917 Problem Neuropathy involving both lower extremities G57.93 Active 924752903 Problem BMI 40.0-44.9, adult Z68.41 Active 676907274 Problem Type 2 diabetes mellitus with hyperglycemia E11.65 Active 13450991 Problem prison current use of insulin Z79.4 Active 595957096 Problem Essential hypertension I10 Active 38265624 Problem Morbid obesity due to excess calories E66.01 Active 663843869 ALLERGIES No Information ENCOUNTERS Encounter Location Date Diagnosis [facility] [address] [id number] [place] [address] Jan Depression, unspecified depression type F32.9 [facility] [employer] [address] [id number] [place] [address] Jan Charcot foot due to diabetes mellitus E11.610 [facility] [address] [facility] [id number] [place] [address] Dec, [facility] [address] [id number] [place] [address] Dec Charcot foot due to diabetes mellitus E11.610 [facility] [address] [id number] [place] [address] Dec Neuropathy involving both lower extremities G57.93 [facility] [employer] [address] [id number] [place] [address] Dec [facility] [address] [id number] [place] [address] November [facility] [place] [address] [id number] [place] [address] November [facility] [place] [address] [id number] [place] [address] November [facility] [place] [address] [id number] [place] [address] November [facility] [place] [address] [id number] [place] [address] November Type 2 diabetes mellitus with hyperglycemia E11.65 ; prison current use of insulin Z79.4 ; Morbid obesity due to excess calories E66.01 ; Charcot foot due to diabetes mellitus E11.610 ; Neuropathy involving both lower extremities G57.93 ; BMI 50.0-59.9, adult Z68.43 ; Depression, unspecified depression type F32.9 and Scrotal swelling N50.89 [facility] [place] [address] [id number] [place] [address] November [facility] [place] [address] [id number] [place] [address] Oct Charcot foot due to diabetes mellitus E11.610 [facility] [place] [address] [id number] [place] [address] Sep Type 2 diabetes mellitus with hyperglycemia E11.65 [facility] [place] [address] [id number] [place] [address] Sep Charcot foot due to diabetes mellitus E11.610 [facility] [place] [address] [id number] [place] [address] Sep [facility] [place] [address] [id number] [place] [address] Sep [facility] [place] [address] [id number] [place] [address] 08 Sep Scrotal swelling N50.89 ; Fungal infection of the groin B35.6 and BMI 50.0-59.9, adult Z68.43 [facility] [place] [address] [id number] [place] [address] Sep Scrotal swelling N50.89 [facility] [place] [address] [id number] [place] [address] Sep Scrotal swelling N50.89 [facility] [place] [address] [id number] [place] [address] Aug Scrotal swelling N50.89 [facility] [place] [address] [id number] [place] [address] Aug Charcot foot due to diabetes mellitus E11.610 [facility] [place] [address] [id number] [place] [address] 09 Aug Type 2 diabetes mellitus with hyperglycemia E11.65 ; 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 ; Morbid obesity due to excess calories E66.01 ; Charcot foot due to diabetes mellitus E11.610 ; Depression, unspecified depression type F32.9 and Essential hypertension I10 [place] [address] [id number] [address] Aug, [facility] [place] [address] [id number] [place] [address] Aug Scrotal swelling N50.89 and Depression, unspecified depression type F32.9 [place] [facility] [address] [id number] [address] Jul, [facility] [address] [id number], [place] [address] Jul, [facility] GARCIA [facility] [id number] [place] [id number] Jul, [facility] [place] [address] [id number] [place] [address] Jul Scrotal swelling N50.89 [facility] [place] [address] [id number] [place] [address] Jul [facility] [place] [address] [id number] [place] [address] Jul Scrotal swelling N50.89 [facility] [place] [address] [id number] [place] [address] Jul Charcot foot due to diabetes mellitus E11.610 [facility] [place] [address] [id number] [place] [address] Jul Depression, unspecified depression type F32.9 and BMI 50.0-59.9, adult Z68.43 [facility] [place] [address] [id number] [place] [address] Jun Depression, unspecified depression type F32.9 ; Charcot foot due to diabetes mellitus E11.610 and BMI 50.0-59.9, adult Z68.43 [facility] [employer] [address] [id number] [place] [address] Jun [facility] [place] [address] [id number] [place] [address] May BMI 40.0-44.9, adult Z68.41 ; Type 2 diabetes mellitus with hyperglycemia E11.65 ; Essential hypertension I10 ; Depression, unspecified depression type F32.9 ; Charcot foot due to diabetes mellitus E11.610 and prison current use of insulin Z79.4 [facility] [place] [address] [id number] [place] [address] May [facility] [place] [address] [id number] [place] [address] May [facility] [place] [address] [id number] [place] [address] May [facility] [place] [address] [id number] [place] [address] Apr [facility] [address] [facility] [id number] [place] [address] Apr, [facility] [place] [address] [id number] [place] [address] Apr [facility] [place] [address] [id number] [place] [address] Apr Type 2 diabetes mellitus with hyperglycemia E11.65 and Depression, unspecified depression type F32.9 [facility] [place] [address] [id number] [place] [address] Apr Encounter for immunization Z23 ; Type 2 diabetes mellitus with hyperglycemia E11.65 ; prison current use of insulin Z79.4 ; Charcot foot due to diabetes mellitus E11.610 and Essential hypertension I10 [facility] [place] [address] [id number] [place] [address] Mar Essential hypertension I10 ; Charcot foot due to diabetes mellitus E11.610 and Type 2 diabetes mellitus with hyperglycemia E11.65 [facility] [place] [address] [id number] [place] [address] Mar [place] [address] [facility] [id number] [address] Feb, [facility] [place] [address] [id number] [place] [address] Feb Type 2 diabetes mellitus with hyperglycemia E11.65 ; Essential hypertension I10 ; 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 ; Morbid obesity due to excess calories E66.01 ; Charcot foot due to diabetes mellitus E11.610 and Depression, unspecified depression type F32.9 [facility] [place] [address] [id number] [place] [address] Jan [facility] [place] [address] [id number] [place] [address] Jan [facility] [place] [address] [id number] [place] [address] Jan [place] [address] [facility] [id number] [place] [address] Jan, [facility] [employer] [place] [address] [id number] [place] [address] Dec Charcot foot due to diabetes mellitus E11.610 [facility] [place] [address] [id number] [place] [address] November [facility] [place] [address] [id number] [place] [address] November Type 2 diabetes mellitus with hyperglycemia E11.65 ; prison current use of insulin Z79.4 and Charcot foot due to diabetes mellitus E11.610 [facility] [place] [address] [id number] [place] [address] November Bronchitis J40 [facility] [place] [address] [id number] [place] [address] Oct Cellulitis of right lower extremity L03.115 and Charcot foot due to diabetes mellitus E11.610 [facility] [place] [address] [id number] [place] [address] Sep [facility] [address] [facility] [id number] [address] Sep, [facility] [place] [address] [id number] [place] [address] Sep Bronchitis J40 [facility] [address] [id number] [place] [id number] Sep, [facility] [place] [address] [id number] [place] [address] Sep Bronchitis J40 [facility] [place] [address] [id number] [place] [address] Sep Type 2 diabetes mellitus with hyperglycemia E11.65 [facility] [place] [address] [id number] [place] [address] Sep [place] [address] [id number] [place] [address] Aug, [facility] [place] [address] [id number] [place] [address] Aug Type 2 diabetes mellitus with hyperglycemia E11.65 ; Depression, unspecified depression type F32.9 ; Charcot foot due to diabetes mellitus E11.610 and Encounter for immunization Z23 [facility] [place] [address] [id number] [place] [address] Aug [facility] [place] [address] [id number] [place] [address] Jul Type 2 diabetes mellitus with hyperglycemia E11.65 ; prison current use of insulin Z79.4 ; Morbid obesity due to excess calories E66.01 and Charcot foot due to diabetes mellitus E11.610 [facility] [place] [address] [id number] [place] [address] Jun Type 2 diabetes mellitus with hyperglycemia E11.65 ; prison current use of insulin Z79.4 ; Morbid obesity due to excess calories E66.01 ; Charcot foot due to diabetes mellitus E11.610 and Encounter for immunization Z23 [facility] [address] [facility] [id number] [address] Jun, [facility] [address] [facility] [id number] [address] Jun, [facility] [place] [address] [id number] [place] [address] Jun Fever in other diseases R50.81 [facility] [place] [address] [id number] [place] [address] May [facility] [place] [address] [id number] [place] [address] May [facility] [place] [address] [id number] [place] [address] May Type 2 diabetes mellitus with hyperglycemia E11.65 [facility] [place] [address] [id number] [place] [address] 10 May Type 2 diabetes mellitus with hyperglycemia E11.65 ; prison current use of insulin Z79.4 ; Morbid obesity due to excess calories E66.01 ; Charcot foot due to diabetes mellitus E11.610 and Depression, unspecified depression type F32.9 IMMUNIZATIONS No Known Immunizations SOCIAL HISTORY Never Assessed REASON FOR VISIT refill PLAN OF CARE VITAL SIGNS MEDICATIONS Medication Instructions Dosage Frequency Start Date End Date Duration Status Percocet 10-325 MG Orally every 6 hrs 1 tablet as needed 6h Oct, 28 days Active RESULTS No Results PROCEDURES [...]
--- OUTSIDE RECORDS SUMMARY | 2018-06-05 14:36 | XMS REPORT ---
Author Author CLAUDIA ARCHER [facility] Address [address] [place] [address] Care Team Providers Care Applied Anthropologist Name Role Phone CLAUDIA ARCHER Unavailable PROBLEMS Type Condition ICD9-CM Code ZFV36-IQ Code Onset Dates Condition Status SNOMED Code Problem Charcot foot due to diabetes mellitus E11.610 Active 69385606 Problem Depression, unspecified depression type F32.9 Active 01216588 Problem Neuropathy involving both lower extremities G57.93 Active 531407825 Problem BMI 40.0-44.9, adult Z68.41 Active 384207066 Problem Type 2 diabetes mellitus with hyperglycemia E11.65 Active 51939896 Problem halfway current use of insulin Z79.4 Active 305070204 Problem Essential hypertension I10 Active 00087378 Problem Morbid obesity due to excess calories E66.01 Active 299046742 ALLERGIES No Known Allergies ENCOUNTERS Encounter Location Date Diagnosis [facility] [address] [id number] [place] [address] Jan Charcot foot due to diabetes mellitus E11.610 [facility] [address] [facility] [id number] [place] [address] Dec, [facility] [address] [id number] [place] [address] Dec Charcot foot due to diabetes mellitus E11.610 [facility] [address] [id number] [place] [address] Dec Neuropathy involving both lower extremities G57.93 [facility] [employer] [address] [id number] [place] [address] Dec [facility] [address] [id number] [place] [address] November [facility] [address] [id number] [place] [address] November [facility] [place] [address] [id number] [place] [address] November [facility] [place] [address] [id number] [place] [address] November [facility] [place] [address] [id number] [place] [address] November Type 2 diabetes mellitus with hyperglycemia E11.65 ; termite exterminator helper current use of insulin Z79.4 ; Morbid obesity due to excess calories E66.01 ; Charcot foot due to diabetes mellitus E11.610 ; Neuropathy involving both lower extremities G57.93 ; BMI 50.0-59.9, adult Z68.43 ; Depression, unspecified depression type F32.9 and Scrotal swelling N50.89 [facility] [place] [address] [id number] [place] [address] November [facility] [place] [address] [id number] [place] [address] Oct Charcot foot due to diabetes mellitus E11.610 [facility] [place] [address] [id number] [place] [address] Sep Type 2 diabetes mellitus with hyperglycemia E11.65 [facility] [place] [address] [id number] [place] [address] Sep [facility] [place] [address] [id number] [place] [address] Sep [facility] [place] [address] [id number] [place] [address] Sep Charcot foot due to diabetes mellitus E11.610 [facility] [place] [address] [id number] [place] [address] 08 Sep Scrotal swelling N50.89 ; Fungal infection of the groin B35.6 and BMI 50.0-59.9, adult Z68.43 [facility] [place] [address] [id number] [place] [address] 05 Sep Scrotal swelling N50.89 [facility] [place] [address] [id number] [place] [address] Sep Scrotal swelling N50.89 [facility] NGHIA [address] [id number] [place] [address] Aug Scrotal swelling N50.89 [facility] [place] [address] [id number] [place] [address] Aug Charcot foot due to diabetes mellitus E11.610 [facility] [place] [address] [id number] [place] [address] Aug Type 2 diabetes mellitus with hyperglycemia E11.65 ; termite exterminator helper current use of insulin Z79.4 ; Morbid obesity due to excess calories E66.01 ; Charcot foot due to diabetes mellitus E11.610 ; Depression, unspecified depression type F32.9 and Essential hypertension I10 [facility] [address] [facility] [id number] [address] Aug, [facility] [place] [address] [id number] [place] [address] Aug Scrotal swelling N50.89 and Depression, unspecified depression type F32.9 [facility] [address] [id number] [address] Jul, [facility] [address] [id number], [place] [address] Jul, [address] [id number] [place] [id number] Jul, [facility] [address] [id number] [place] [address] Jul Scrotal swelling N50.89 [facility] NGH[facility] [address] [id number] [place] [address] Jul [facility] [place] [address] [id number] [place] [address] Jul Scrotal swelling N50.89 [facility] [place] [address] [id number] [place] [address] Jul Charcot foot due to diabetes mellitus E11.610 [facility] [place] [address] [id number] [place] [address] Jul Depression, unspecified depression type F32.9 and BMI 50.0-59.9, adult Z68.43 [facility] [place] [address] [id number] [place] [address] Jun Depression, unspecified depression type F32.9 ; Charcot foot due to diabetes mellitus E11.610 and BMI 50.0-59.9, adult Z68.43 [facility] [place] [address] [id number] [place] [address] Jun [facility] [place] [address] [id number] [place] [address] May BMI 40.0-44.9, adult Z68.41 ; Type 2 diabetes mellitus with hyperglycemia E11.65 ; Essential hypertension I10 ; Depression, unspecified depression type F32.9 ; Charcot foot due to diabetes mellitus E11.610 and termite exterminator helper current use of insulin Z79.4 [facility] [place] [address] [id number] [place] [address] May [facility] [place] [address] [id number] [place] [address] May [facility] [place] [address] [id number] [place] [address] May [facility]com[facility] [place] [address] [id number] [place] [address] Apr [facility] [address] [facility] [id number] [place] [address] Apr, [facility] [place] [address] [id number] [place] [address] Apr [facility] [place] [address] [id number] [place] [address] Apr Type 2 diabetes mellitus with hyperglycemia E11.65 and Depression, unspecified depression type F32.9 [facility] [place] [address] [id number] [place] [address] Apr Encounter for immunization Z23 ; Type 2 diabetes mellitus with hyperglycemia E11.65 ; termite exterminator helper current use of insulin Z79.4 ; Charcot foot due to diabetes mellitus E11.610 and Essential hypertension I10 [facility] [address] [id number] [place] [address] Mar Essential hypertension I10 ; Charcot foot due to diabetes mellitus E11.610 and Type 2 diabetes mellitus with hyperglycemia E11.65 [facility] [address] [id number] [place] [address] Mar [facility] [address] [facility] [id number], [place] [address] Feb, [facility] [place] [address] [id number] [place] [address] Feb Type 2 diabetes mellitus with hyperglycemia E11.65 ; Essential hypertension I10 ; termite exterminator helper current use of insulin Z79.4 ; Morbid obesity due to excess calories E66.01 ; Charcot foot due to diabetes mellitus E11.610 and Depression, unspecified depression type F32.9 [facility] [address] [id number] [place] [address] Jan [facility] [address] [id number] [place] [address] Jan [facility] [address] [id number] [place] [address] Jan [facility] [address] [facility] [id number] [place] [address] Jan, [facility] [address] [id number] [place] [address] Dec Charcot foot due to diabetes mellitus E11.610 [facility] [address] [id number] [place] [address] November [facility] [place] [address] [id number] [place] [address] November Type 2 diabetes mellitus with hyperglycemia E11.65 ; termite exterminator helper current use of insulin Z79.4 and Charcot foot due to diabetes mellitus E11.610 [facility] [place] [address] [id number] [place] [address] November Bronchitis J40 [facility] [place] [address] [id number] [place] [address] Oct Cellulitis of right lower extremity L03.115 and Charcot foot due to diabetes mellitus E11.610 [facility] [place] [address] [id number] [place] [address] Sep [place] [address] [id number], [place] [address] Sep, [facility] [place] [address] [id number] [place] [address] 14 Sep Bronchitis J40 [facility] [id number] [place] [address] 08 Sep, 2016 [facility] [place] [address] [id number] [place] [address] Sep Bronchitis J40 [facility] [place] [address] [id number] [place] [address] Sep Type 2 diabetes mellitus with hyperglycemia E11.65 [facility] [place] [address] [id number] [place] [address] Sep [place] [address] [address] [id number] [place] [address] Aug, [facility] [place] [address] [id number] [place] [address] Aug Type 2 diabetes mellitus with hyperglycemia E11.65 ; Depression, unspecified depression type F32.9 ; Charcot foot due to diabetes mellitus E11.610 and Encounter for immunization Z23 [facility] [place] [address] [id number] [place] [address] Aug [facility] [place] [address] [id number] [place] [address] Jul Type 2 diabetes mellitus with hyperglycemia E11.65 ; termite exterminator helper current use of insulin Z79.4 ; Morbid obesity due to excess calories E66.01 and Charcot foot due to diabetes mellitus E11.610 [facility] [address] [id number] [place] [address] Jun Type 2 diabetes mellitus with hyperglycemia E11.65 ; halfway current use of insulin Z79.4 ; Morbid obesity due to excess calories E66.01 ; Charcot foot due to diabetes mellitus E11.610 and Encounter for immunization Z23 [facility] [address] [id number] [place] [address] Jun, [facility] [address] [facility] [id number], [place] [address] Jun, [facility] [address] [id number] [place] [address] Jun Fever in other diseases R50.81 [facility] [place] [address] [id number] [place] [address] May [facility] [address] [id number] [place] [address] May [facility] [place] [address] [id number] [place] [address] May Type 2 diabetes mellitus with hyperglycemia E11.65 [facility] [place] [address] [id number] [place] [address] 10 May Type 2 diabetes mellitus with hyperglycemia E11.65 ; halfway current use of insulin Z79.4 ; Morbid obesity due to excess calories E66.01 ; Charcot foot due to diabetes mellitus E11.610 and Depression, unspecified depression type F32.9 IMMUNIZATIONS No Known Immunizations SOCIAL HISTORY Never Assessed REASON FOR VISIT Scrotal Swelling Follow Up. Pt reports improvement, but not resolution. depression screen completed. yessenia, RN PLAN OF CARE Activity Details Follow Up 1 Week Reason:f/u scrotal swelling VITAL SIGNS Height 74 in 2017-09-14 Weight 429.4 lbs 2017-09-14 Temperature 97.9 degrees Fahrenheit 2017-09-14 Heart Rate 97 bpm 2017-09-14 Respiratory Rate 18 2017-09-14 Oximetry 97 % 2017-09-14 BMI 55.13 kg/m2 2017-09-14 Blood pressure systolic 170 mmHg 2017-09-14 Blood pressure diastolic 100 mmHg 2017-09-14 MEDICATIONS Medication Instructions Dosage Frequency Start Date End Date Duration Status Lisinopril 40 MG 1 tablet Once a day Orally 30 day(s) 30 Active Toujeo SoloStar 300 UNIT/ML Subcutaneous Once a day 75 units 24h Active Nystatin 316657 UNIT/GM Externally Twice a day 1 application to affected area 12h Sep, Oct, 14 days Active Lasix 40 mg Orally Once a day 2 tablets 24h 05 days Active Ibuprofen 200 MG Orally PRN 4 tab Active MetFORMIN HCl ER 500 MG TAKE 2 TABLETS BY MOUTH TWICE DAILY Active Bydureon 2 MG Subcutaneous weekly 2 mg Active Glucocard Expression Monitor w/Device as directed Mar, Active Glucocard Expression Test - subcutaneously 4 times a day- 100 strips as directed Mar, 30 days Active Pen Sweetwater 32G X 4 MM subcutaneously 3 times a day as directed 8h Sep, 90 days Active Viibryd 20 mg Orally Once a day 1 tablet with food 24h Jun, Active Multivitamin Men Orally PRN 1 tablet Active Atorvastatin Calcium 80 MG Orally Once a day 1/2 tablet 24h May, 90 days Active Gabapentin 300 MG Orally Once a day 1 capsule before bedtime 24h Aug, 30 day(s) Active Percocet 10-325 MG Orally every 6 hrs 1 tablet as needed 6h Aug, Sep, 28 days Active NovoLog 100 UNIT/ML Subcutaneous 3 times a day 50 unit at meals 8h Active RESULTS No Results PROCEDURES No Known [...]
--- OUTSIDE RECORDS SUMMARY | 2018-06-05 14:36 | XMS REPORT ---
Author [facility] [address] [place] [address] Care Team Providers Care Security Nurse Name Role Phone CLAUDIA ARCHER Unavailable PROBLEMS Type Condition ICD9-CM Code VQI65-VL Code Onset Dates Condition Status SNOMED Code Problem Charcot foot due to diabetes mellitus E11.610 Active 93279979 Problem Depression, unspecified depression type F32.9 Active 66110628 Problem Neuropathy involving both lower extremities G57.93 Active 894725384 Problem BMI 40.0-44.9, adult Z68.41 Active 797087842 Problem Type 2 diabetes mellitus with hyperglycemia E11.65 Active 88070057 Problem custodial current use of insulin Z79.4 Active 525933942 Problem Essential hypertension I10 Active 41495846 Problem Morbid obesity due to excess calories E66.01 Active 078463942 ALLERGIES No Information ENCOUNTERS Encounter Location Date Diagnosis [facility] [address] [id number] [place] [address] Jan Depression, unspecified depression type F32.9 [facility] [address] [id number] [place] [address] Jan Charcot foot due to diabetes mellitus E11.610 [facility] [address] [id number] [place] [address] Dec, [facility] [address] [id number] [place] [address] Dec Charcot foot due to diabetes mellitus E11.610 [facility] [address] [id number] [place] [address] Dec Neuropathy involving both lower extremities G57.93 [facility] [address] [id number] [place] [address] Dec [facility] [address] [id number] [place] [address] November [facility] [place] [address] [id number] [place] [address] November [facility] [place] [address] [id number] [place] [address] November [facility] [place] [address] [id number] [place] [address] November [facility] [place] [address] [id number] [place] [address] November Type 2 diabetes mellitus with hyperglycemia E11.65 ; custodial current use of insulin Z79.4 ; Morbid obesity due to excess calories E66.01 ; Charcot foot due to diabetes mellitus E11.610 ; Neuropathy involving both lower extremities G57.93 ; BMI 50.0-59.9, adult Z68.43 ; Depression, unspecified depression type F32.9 and Scrotal swelling N50.89 [facility] [place] [address] [id number] [place] [address] November [facility] [place] [address] [id number] [place] [address] Oct Charcot foot due to diabetes mellitus E11.610 [facility] [place] [address] [id number] [place] [address] Sep Type 2 diabetes mellitus with hyperglycemia E11.65 [facility] [place] [address] [id number] [place] [address] Sep Charcot foot due to diabetes mellitus E11.610 [facility] [place] [address] [id number] [place] [address] Sep [facility] [place] [address] [id number] [place] [address] Sep [facility] [place] [address] [id number] [place] [address] 08 Sep Scrotal swelling N50.89 ; Fungal infection of the groin B35.6 and BMI 50.0-59.9, adult Z68.43 [facility] [place] [address] [id number] [place] [address] Sep Scrotal swelling N50.89 [facility] [place] [address] [id number] [place] [address] Sep Scrotal swelling N50.89 [facility] [place] [address] [id number] [place] [address] Aug Scrotal swelling N50.89 [facility] [place] [address] [id number] [place] [address] Aug Charcot foot due to diabetes mellitus E11.610 [facility] [place] [address] [id number] [place] [address] 09 Aug Type 2 diabetes mellitus with hyperglycemia E11.65 ; 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.4 ; Morbid obesity due to excess calories E66.01 ; Charcot foot due to diabetes mellitus E11.610 ; Depression, unspecified depression type F32.9 and Essential hypertension I10 [facility] [address] [id number] [address] Aug, [facility] [place] [address] [id number] [place] [address] Aug Scrotal swelling N50.89 and Depression, unspecified depression type F32.9 [facility] [address] [id number] [address] Jul, [facility] [facility] [address] [id number] [address] Jul, [facility] GARCIA [facility] [id number] [place] [id number] Jul, [facility] [place] [address] [id number] [place] [address] Jul Scrotal swelling N50.89 [facility] [place] [address] [id number] [place] [address] Jul [facility] [place] [address] [id number] [place] [address] Jul Scrotal swelling N50.89 [facility] [place] [address] [id number] [place] [address] Jul Charcot foot due to diabetes mellitus E11.610 [facility] [place] [address] [id number] [place] [address] Jul Depression, unspecified depression type F32.9 and BMI 50.0-59.9, adult Z68.43 [facility] [place] [address] [id number] [place] [address] Jun Depression, unspecified depression type F32.9 ; Charcot foot due to diabetes mellitus E11.610 and BMI 50.0-59.9, adult Z68.43 [facility] [place] [address] [id number] [place] [address] Jun [facility] [place] [address] [id number] [place] [address] May BMI 40.0-44.9, adult Z68.41 ; Type 2 diabetes mellitus with hyperglycemia E11.65 ; Essential hypertension I10 ; Depression, unspecified depression type F32.9 ; Charcot foot due to diabetes mellitus E11.610 and custodial current use of insulin Z79.4 [facility] [place] [address] [id number] [place] [address] May [facility] [place] [address] [id number] [place] [address] May [facility] [place] [address] [id number] [place] [address] May [facility] [place] [address] [id number] [place] [address] Apr [facility] [address] [id number] [place] [address] Apr, [facility] [place] [address] [id number] [place] [address] Apr [facility] [place] [address] [id number] [place] [address] Apr Type 2 diabetes mellitus with hyperglycemia E11.65 and Depression, unspecified depression type F32.9 [facility] [place] [address] [id number] [place] [address] Apr Encounter for immunization Z23 ; Type 2 diabetes mellitus with hyperglycemia E11.65 ; custodial current use of insulin Z79.4 ; Charcot foot due to diabetes mellitus E11.610 and Essential hypertension I10 [facility] [place] [address] [id number] [place] [address] Mar Essential hypertension I10 ; Charcot foot due to diabetes mellitus E11.610 and Type 2 diabetes mellitus with hyperglycemia E11.65 [facility] [place] [address] [id number] [place] [address] Mar [facility] [address] [id number], [place] [address] Feb, [facility] [place] [address] [id number] [place] [address] Feb Type 2 diabetes mellitus with hyperglycemia E11.65 ; Essential hypertension I10 ; 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.4 ; Morbid obesity due to excess calories E66.01 ; Charcot foot due to diabetes mellitus E11.610 and Depression, unspecified depression type F32.9 [facility] [place] [address] [id number] [place] [address] Jan [facility] [place] [address] [id number] [place] [address] Jan [facility] [place] [address] [id number] [place] [address] Jan [facility] [address] [id number] [place] [address] Jan, [facility] [place] [address] [id number] [place] [address] Dec Charcot foot due to diabetes mellitus E11.610 [facility] [place] [address] [id number] [place] [address] November [facility] [place] [address] [id number] [place] [address] November Type 2 diabetes mellitus with hyperglycemia E11.65 ; custodial current use of insulin Z79.4 and Charcot foot due to diabetes mellitus E11.610 [facility] [place] [address] [id number] [place] [address] November Bronchitis J40 [facility] [place] [address] [id number] [place] [address] Oct Cellulitis of right lower extremity L03.115 and Charcot foot due to diabetes mellitus E11.610 [facility] [place] [address] [id number] [place] [address] Sep [facility] [address] [id number], [place] [address] Sep, [facility] [place] [address] [id number] [place] [address] Sep Bronchitis J40 [facility] [address] [id number] [place] [id number] Sep, [facility] [place] [address] [id number] [place] [address] Sep Bronchitis J40 [facility] [place] [address] [id number] [place] [address] Sep Type 2 diabetes mellitus with hyperglycemia E11.65 [facility] [place] [address] [id number] [place] [address] Sep [facility] [facility] [address] [id number] [address] Aug, [facility] [place] [address] [id number] [place] [address] Aug Type 2 diabetes mellitus with hyperglycemia E11.65 ; Depression, unspecified depression type F32.9 ; Charcot foot due to diabetes mellitus E11.610 and Encounter for immunization Z23 [facility] [place] [address] [id number] [place] [address] Aug [facility] [place] [address] [id number] [place] [address] Jul Type 2 diabetes mellitus with hyperglycemia E11.65 ; custodial current use of insulin Z79.4 ; Morbid obesity due to excess calories E66.01 and Charcot foot due to diabetes mellitus E11.610 [facility] [place] [address] [id number] [place] [address] Jun Type 2 diabetes mellitus with hyperglycemia E11.65 ; custodial current use of insulin Z79.4 ; Morbid obesity due to excess calories E66.01 ; Charcot foot due to diabetes mellitus E11.610 and Encounter for immunization Z23 [facility] [address] [id number], [place] [address] Jun, [facility] [address] [id number], [place] [address] Jun, [facility] [place] [address] [id number] [place] [address] Jun Fever in other diseases R50.81 [facility] [address] [id number] [place] [address] May [facility] [place] [address] [id number] [place] [address] May [facility] [place] [address] [id number] [place] [address] May Type 2 diabetes mellitus with hyperglycemia E11.65 [facility] [place] [address] [id number] [place] [address] 10 May Type 2 diabetes mellitus with hyperglycemia E11.65 ; custodial current use of insulin Z79.4 ; Morbid obesity due to excess calories E66.01 ; Charcot foot due to diabetes mellitus E11.610 and Depression, unspecified depression type F32.9 IMMUNIZATIONS No Known Immunizations SOCIAL HISTORY Never Assessed REASON FOR VISIT Kael mejia PLAN OF CARE VITAL SIGNS MEDICATIONS Medication Instructions Dosage Frequency Start Date End Date Duration Status Gabapentin 300 MG Orally TID PRN 1 capsule before bedtime Aug, 30 days Active RESULTS No Results PROCEDURES No [...]
--- OUTSIDE RECORDS SUMMARY | 2018-06-05 14:36 | XMS REPORT ---
Author Author CLAUDIA ARCHER [facility] Address [address] [place] [address] Care Team Providers Care Javascript Application Developer Name Role Phone CLAUDIA ARCHER Unavailable PROBLEMS Type Condition ICD9-CM Code CPG42-KL Code Onset Dates Condition Status SNOMED Code Problem Charcot foot due to diabetes mellitus E11.610 Active 47669407 Problem Depression, unspecified depression type F32.9 Active 81449282 Problem Neuropathy involving both lower extremities G57.93 Active 427284563 Problem BMI 40.0-44.9, adult Z68.41 Active 071590269 Problem Type 2 diabetes mellitus with hyperglycemia E11.65 Active 23223136 Problem half-way current use of insulin Z79.4 Active 183287831 Problem Essential hypertension I10 Active 71762219 Problem Morbid obesity due to excess calories E66.01 Active 053912749 ALLERGIES No Information ENCOUNTERS Encounter Location Date Diagnosis [facility] [address] [id number] [place] [address] Jan Charcot foot due to diabetes mellitus E11.610 [facility] [address] [facility] [id number] [place] [address] Dec, [facility] [address] [id number] [place] [address] Dec Charcot foot due to diabetes mellitus E11.610 [facility] [place] [address] [id number] [place] [address] Dec Neuropathy involving both lower extremities G57.93 [facility] [employer] [address] [id number] [place] [address] Dec [facility] [address] [id number] [place] [address] November [facility]ENTERAureliant[facility] [address] [id number] [place] [address] November [facility] [place] [address] [id number] [place] [address] November [facility] [place] [address] [id number] [place] [address] November [facility] [place] [address] [id number] [place] [address] November Type 2 diabetes mellitus with hyperglycemia E11.65 ; half-way current use of insulin Z79.4 ; Morbid obesity due to excess calories E66.01 ; Charcot foot due to diabetes mellitus E11.610 ; Neuropathy involving both lower extremities G57.93 ; BMI 50.0-59.9, adult Z68.43 ; Depression, unspecified depression type F32.9 and Scrotal swelling N50.89 [facility] [place] [address] [id number] [place] [address] November [facility] [place] [address] [id number] [place] [address] Oct Charcot foot due to diabetes mellitus E11.610 [facility] [place] [address] [id number] [place] [address] Sep Type 2 diabetes mellitus with hyperglycemia E11.65 [facility] [place] [address] [id number] [place] [address] Sep Charcot foot due to diabetes mellitus E11.610 [facility] [place] [address] [id number] [place] [address] Sep [facility] [place] [address] [id number] [place] [address] Sep [facility] [place] [address] [id number] [place] [address] 08 Sep Scrotal swelling N50.89 ; Fungal infection of the groin B35.6 and BMI 50.0-59.9, adult Z68.43 [facility] [place] [address] [id number] [place] [address] 05 Sep Scrotal swelling N50.89 [facility] [place] [address] [id number] [place] [address] Sep Scrotal swelling N50.89 [facility] [place] [address] [id number] [place] [address] Aug Scrotal swelling N50.89 [facility] [employer] [address] [id number] [place] [address] 14 Aug Charcot foot due to diabetes mellitus E11.610 [facility] [address] [id number] [place] [address] Aug Type 2 diabetes mellitus with hyperglycemia E11.65 ; half-way current use of insulin Z79.4 ; Morbid obesity due to excess calories E66.01 ; Charcot foot due to diabetes mellitus E11.610 ; Depression, unspecified depression type F32.9 and Essential hypertension I10 [facility] [address] [id number] [address] Aug, [facility] [address] [id number] [place] [address] Aug Scrotal swelling N50.89 and Depression, unspecified depression type F32.9 [place] [address] [id number] [address] Jul, [facility] [address] [id number] [address] Jul, [address] [id number] [place] [id number] Jul, [facility] [place] [address] [id number] [place] [address] Jul Scrotal swelling N50.89 [facility] [place] [address] [id number] [place] [address] Jul [facility] [place] [address] [id number] [place] [address] Jul Scrotal swelling N50.89 [facility] [place] [address] [id number] [place] [address] Jul Charcot foot due to diabetes mellitus E11.610 [facility] [place] [address] [id number] [place] [address] Jul Depression, unspecified depression type F32.9 and BMI 50.0-59.9, adult Z68.43 [facility] [place] [address] [id number] [place] [address] Jun Depression, unspecified depression type F32.9 ; Charcot foot due to diabetes mellitus E11.610 and BMI 50.0-59.9, adult Z68.43 [facility] [place] [address] [id number] [place] [address] Jun [facility] [place] [address] [id number] [place] [address] May BMI 40.0-44.9, adult Z68.41 ; Type 2 diabetes mellitus with hyperglycemia E11.65 ; Essential hypertension I10 ; Depression, unspecified depression type F32.9 ; Charcot foot due to diabetes mellitus E11.610 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 [facility] [place] [address] [id number] [place] [address] May [facility] [place] [address] [id number] [place] [address] May [facility] [place] [address] [id number] [place] [address] May [facility]ENTERCortex[facility] [place] [address] [id number] [place] [address] Apr [facility] [address] [facility] [id number] [place] [address] Apr, [facility] [place] [address] [id number] [place] [address] Apr [facility] [place] [address] [id number] [place] [address] Apr Type 2 diabetes mellitus with hyperglycemia E11.65 and Depression, unspecified depression type F32.9 [facility] [place] [address] [id number] [place] [address] Apr Encounter for immunization Z23 ; Type 2 diabetes mellitus with hyperglycemia E11.65 ; 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 ; Charcot foot due to diabetes mellitus E11.610 and Essential hypertension I10 [facility] [address] [id number] [place] [address] Mar Essential hypertension I10 ; Charcot foot due to diabetes mellitus E11.610 and Type 2 diabetes mellitus with hyperglycemia E11.65 [facility] [address] [id number] [place] [address] Mar [facility] [address] [facility] [id number] [address] Feb, [facility] [place] [address] [id number] [place] [address] Feb Type 2 diabetes mellitus with hyperglycemia E11.65 ; Essential hypertension I10 ; half-way current use of insulin Z79.4 ; Morbid obesity due to excess calories E66.01 ; Charcot foot due to diabetes mellitus E11.610 and Depression, unspecified depression type F32.9 [facility] [place] [address] [id number] [place] [address] Jan [facility] [place] [address] [id number] [place] [address] Jan [facility] [address] [id number] [place] [address] Jan [facility] [address] [facility] [id number] [place] [address] Jan, [facility] [place] [address] [id number] [place] [address] Dec Charcot foot due to diabetes mellitus E11.610 [facility]SE[facility] [place] [address] [id number] [place] [address] November [facility]ENTERSEL[facility] [place] [address] [id number] [place] [address] November Type 2 diabetes mellitus with hyperglycemia E11.65 ; half-way current use of insulin Z79.4 and Charcot foot due to diabetes mellitus E11.610 [facility] [place] [address] [id number] [place] [address] November Bronchitis J40 [facility] [place] [address] [id number] [place] [address] Oct Cellulitis of right lower extremity L03.115 and Charcot foot due to diabetes mellitus E11.610 [facility] [place] [address] [id number] [place] [address] Sep [place] [address] [id number] [address] Sep, [facility] [place] [address] [id number] [place] [address] Sep Bronchitis J40 [facility]SEL[facility] [place] [facility] [id number] [place] [id number] 08 Sep, 2016 [facility] [place] [address] [id number] [place] [address] Sep Bronchitis J40 [facility] [place] [address] [id number] [place] [address] Sep Type 2 diabetes mellitus with hyperglycemia E11.65 [facility] [place] [address] [id number] [place] [address] Sep [place] [address] [id number] [place] [address] Aug, [facility] [place] [address] [id number] [place] [address] Aug Type 2 diabetes mellitus with hyperglycemia E11.65 ; Depression, unspecified depression type F32.9 ; Charcot foot due to diabetes mellitus E11.610 and Encounter for immunization Z23 [facility] [place] [address] [id number] [place] [address] Aug [facility] [place] [address] [id number] [place] [address] Jul Type 2 diabetes mellitus with hyperglycemia E11.65 ; 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 ; Morbid obesity due to excess calories E66.01 and Charcot foot due to diabetes mellitus E11.610 [facility] [address] [id number] [place] [address] Jun Type 2 diabetes mellitus with hyperglycemia E11.65 ; half-way current use of insulin Z79.4 ; Morbid obesity due to excess calories E66.01 ; Charcot foot due to diabetes mellitus E11.610 and Encounter for immunization Z23 [facility] [address] [facility] [id number] [place] [address] Jun, [facility] [address] [facility] [id number] [place] [address] Jun, [facility] [place] [address] [id number] [place] [address] Jun Fever in other diseases R50.81 [facility] [address] [id number] [place] [address] May [facility] [address] [id number] [place] [address] May [facility] [place] [address] [id number] [place] [address] May Type 2 diabetes mellitus with hyperglycemia E11.65 [facility] [address] [id number] [place] [address] May Type 2 diabetes mellitus with hyperglycemia E11.65 ; 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
--- OUTSIDE RECORDS SUMMARY | 2018-06-05 14:37 | XMS REPORT ---
Author Author CLAUDIA ARCHER [facility] Address [address] [place] [address] Care Team Providers Care [employer] Supervisor Name Role Phone CLAUDIA ARCHER Unavailable PROBLEMS Type Condition ICD9-CM Code WZG03-BX Code Onset Dates Condition Status SNOMED Code Problem Charcot foot due to diabetes mellitus E11.610 Active 81015452 Problem Depression, unspecified depression type F32.9 Active 95826147 Problem Neuropathy involving both lower extremities G57.93 Active 237312028 Problem BMI 40.0-44.9, adult Z68.41 Active 617318429 Problem Type 2 diabetes mellitus with hyperglycemia E11.65 Active 51653992 Problem 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 Active 637489403 Problem Essential hypertension I10 Active 16809743 Problem Morbid obesity due to excess calories E66.01 Active 602679170 ALLERGIES No Information ENCOUNTERS Encounter Location Date Diagnosis [facility] [address] [facility] [id number] [place] [address] Dec, [facility] [address] [id number] [place] [address] Dec Charcot foot due to diabetes mellitus E11.610 [facility] [address] [id number] [place] [address] Dec Neuropathy involving both lower extremities G57.93 [facility] [address] [id number] [place] [address] Dec [facility] [address] [id number] [place] [address] November [facility] [address] [id number] [place] [address] November [facility] [address] [id number] [place] [address] November [facility] [place] [address] [id number] [place] [address] November [facility] [place] [address] [id number] [place] [address] November Type 2 diabetes mellitus with hyperglycemia E11.65 ; dedicated intermodal truck driver current use of insulin Z79.4 ; Morbid obesity due to excess calories E66.01 ; Charcot foot due to diabetes mellitus E11.610 ; Neuropathy involving both lower extremities G57.93 ; BMI 50.0-59.9, adult Z68.43 ; Depression, unspecified depression type F32.9 and Scrotal swelling N50.89 [facility] [place] [address] [id number] [place] [address] November [facility] [place] [address] [id number] [place] [address] Oct Charcot foot due to diabetes mellitus E11.610 [facility] [place] [address] [id number] [place] [address] Sep Type 2 diabetes mellitus with hyperglycemia E11.65 [facility] [place] [address] [id number] [place] [address] Sep Charcot foot due to diabetes mellitus E11.610 [facility] [place] [address] [id number] [place] [address] Sep [facility] [place] [address] [id number] [place] [address] Sep [facility] [place] [address] [id number] [place] [address] Sep Scrotal swelling N50.89 ; Fungal infection of the groin B35.6 and BMI 50.0-59.9, adult Z68.43 [facility] [place] [address] [id number] [place] [address] 05 Sep Scrotal swelling N50.89 [facility] [place] [address] [id number] [place] [address] Sep Scrotal swelling N50.89 [facility] [place] [address] [id number] [place] [address] Aug Scrotal swelling N50.89 [facility] [place] [address] [id number] [place] [address] 14 Aug Charcot foot due to diabetes mellitus E11.610 [facility] [place] [address] [id number] [place] [address] 09 Aug Type 2 diabetes mellitus with hyperglycemia E11.65 ; 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 ; Morbid obesity due to excess calories E66.01 ; Charcot foot due to diabetes mellitus E11.610 ; Depression, unspecified depression type F32.9 and Essential hypertension I10 [facility] [address] [facility] [id number], [place] [address] 07 Aug, 2017 [facility] [place] [address] [id number] [place] [address] Aug Scrotal swelling N50.89 and Depression, unspecified depression type F32.9 [facility] [address] [id number], [place] [address] Jul, [facility] [address] [facility] [id number], [place] [address] Jul, [facility] GARCIA[address] [id number] [place] [id number] Jul, [facility] [place] [address] [id number] [place] [address] Jul Scrotal swelling N50.89 [facility] [place] [address] [id number] [place] [address] Jul [facility] [place] [address] [id number] [place] [address] Jul Scrotal swelling N50.89 [facility] [place] [address] [id number] [place] [address] Jul Charcot foot due to diabetes mellitus E11.610 [facility] [place] [address] [id number] [place] [address] Jul Depression, unspecified depression type F32.9 and BMI 50.0-59.9, adult Z68.43 [facility] [place] [address] [id number] [place] [address] Jun Depression, unspecified depression type F32.9 ; Charcot foot due to diabetes mellitus E11.610 and BMI 50.0-59.9, adult Z68.43 [facility] [place] [address] [id number] [place] [address] Jun [facility] [place] [address] [id number] [place] [address] May BMI 40.0-44.9, adult Z68.41 ; Type 2 diabetes mellitus with hyperglycemia E11.65 ; Essential hypertension I10 ; Depression, unspecified depression type F32.9 ; Charcot foot due to diabetes mellitus E11.610 and dedicated intermodal truck driver current use of insulin Z79.4 [facility] [place] [address] [id number] [place] [address] May [facility] [place] [address] [id number] [place] [address] May [facility] [place] [address] [id number] [place] [address] May [facility] [place] [address] [id number] [place] [address] Apr [facility] [address] [facility] [id number] [place] [address] Apr, [facility] [place] [address] [id number] [place] [address] Apr [facility] [place] [address] [id number] [place] [address] Apr Type 2 diabetes mellitus with hyperglycemia E11.65 and Depression, unspecified depression type F32.9 [facility] [place] [address] [id number] [place] [address] Apr Encounter for immunization Z23 ; Type 2 diabetes mellitus with hyperglycemia E11.65 ; dedicated intermodal truck driver current use of insulin Z79.4 ; Charcot foot due to diabetes mellitus E11.610 and Essential hypertension I10 [facility] [place] [address] [id number] [place] [address] Mar Essential hypertension I10 ; Charcot foot due to diabetes mellitus E11.610 and Type 2 diabetes mellitus with hyperglycemia E11.65 [facility] [place] [address] [id number] [place] [address] Mar [place] [address] [facility] [id number] [place] [address] Feb, [facility] [place] [address] [id number] [place] [address] Feb Type 2 diabetes mellitus with hyperglycemia E11.65 ; Essential hypertension I10 ; dedicated intermodal truck driver current use of insulin Z79.4 ; Morbid obesity due to excess calories E66.01 ; Charcot foot due to diabetes mellitus E11.610 and Depression, unspecified depression type F32.9 [facility] [place] [address] [id number] [place] [address] Jan [facility] [place] [address] [id number] [place] [address] Jan [facility] [place] [address] [id number] [place] [address] Jan [place] [address] [facility] [id number] [place] [address] Jan, [facility] [place] [address] [id number] [place] [address] Dec Charcot foot due to diabetes mellitus E11.610 [facility] [place] [address] [id number] [place] [address] November [facility] [place] [address] [id number] [place] [address] November Type 2 diabetes mellitus with hyperglycemia E11.65 ; 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 and Charcot foot due to diabetes mellitus E11.610 [facility] [place] [address] [id number] [place] [address] November Bronchitis J40 [facility] [place] [address] [id number] [place] [address] Oct Cellulitis of right lower extremity L03.115 and Charcot foot due to diabetes mellitus E11.610 [facility] [place] [address] [id number] [place] [address] Sep [facility] [address] [facility] [id number] [place] [address] Sep, [facility] [place] [address] [id number] [place] [address] Sep Bronchitis J40 [facility] [address] [id number] [place] [address] Sep, [facility] [place] [address] [id number] [place] [address] Sep Bronchitis J40 [facility] [place] [address] [id number] [place] [address] Sep Type 2 diabetes mellitus with hyperglycemia E11.65 [facility] [place] [address] [id number] [place] [address] Sep [facility] [address] [facility] [id number] [place] [address] Aug, [facility] [place] [address] [id number] [place] [address] Aug Type 2 diabetes mellitus with hyperglycemia E11.65 ; Depression, unspecified depression type F32.9 ; Charcot foot due to diabetes mellitus E11.610 and Encounter for immunization Z23 [facility] [place] [address] [id number] [place] [address] Aug [facility] [place] [address] [id number] [place] [address] Jul Type 2 diabetes mellitus with hyperglycemia E11.65 ; dedicated intermodal truck driver current use of insulin Z79.4 ; Morbid obesity due to excess calories E66.01 and Charcot foot due to diabetes mellitus E11.610 [facility] [place] [address] [id number] [place] [address] 12 Dec , 2016 Type 2 diabetes mellitus with hyperglycemia E11.65 ; 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 ; Morbid obesity due to excess calories E66.01 ; Charcot foot due to diabetes mellitus E11.610 and Encounter for immunization Z23 [facility] [address] [facility] [id number] [place] [address] Jun, [facility] [address] [facility] [id number] [place] [address] Jun, [facility] [place] [address] [id number] [place] [address] Jun Fever in other diseases R50.81 [facility] [place] [address] [id number] [place] [address] May [facility] [place] [address] [id number] [place] [address] May [facility] [place] [address] [id number] [place] [address] May Type 2 diabetes mellitus with hyperglycemia E11.65 [facility] [place] [address] [id number] [place] [address] May Type 2 diabetes mellitus with hyperglycemia E11.65 ; dedicated intermodal truck driver current use of insulin Z79.4 ; Morbid obesity due to excess calories E66.01 ; Charcot foot due to diabetes mellitus E11.610 and Depression, unspecified depression type F32.9 IMMUNIZATIONS No Known Immunizations SOCIAL HISTORY Never Assessed REASON FOR VISIT Lab (walk-in) PLAN OF CARE VITAL SIGNS MEDICATIONS Unknown Medications RESULTS No Results PROCEDURES Procedure Date Ordered Result Body Site COMPREHEN METABOLIC PANEL September 11, 2017 VENIPUNCT, ROUTINE* September 11, 2017 INSTRUCTIONS MEDICATIONS ADMINISTERED No Known Medications MEDICAL (GENERAL) HISTORY Type Description Date Medical History type II diabetes Medical History charcoat Medical History depression Medical History Diabetic ulcer on bottom of foot per wound care Surgical History lap angel Surgical History Lt knee scope Surgical History circumscison revision Surgical History Lt foot Hospitalization History surgeries
--- OUTSIDE RECORDS SUMMARY | 2018-06-05 14:37 | XMS REPORT ---
Author Author CLAUDIA ARCHER [facility] Address [address] [place] [address] Care Team Providers Care Sole Stapler Welt Name Role Phone CLAUDIA ARCHER Unavailable PROBLEMS Type Condition ICD9-CM Code KOX35-GT Code Onset Dates Condition Status SNOMED Code Problem Charcot foot due to diabetes mellitus E11.610 Active 38127851 Problem Depression, unspecified depression type F32.9 Active 55706024 Problem Neuropathy involving both lower extremities G57.93 Active 126373678 Problem BMI 40.0-44.9, adult Z68.41 Active 460027637 Problem Type 2 diabetes mellitus with hyperglycemia E11.65 Active 17420947 Problem halfway current use of insulin Z79.4 Active 884390794 Problem Essential hypertension I10 Active 95501699 Problem Morbid obesity due to excess calories E66.01 Active 203047558 ALLERGIES No Information ENCOUNTERS Encounter Location Date Diagnosis [facility] [address] [id number] [place] [address] Jan [facility] [address] [facility] [id number] [place] [address] Dec, [facility] [address] [id number] [place] [address] Dec Charcot foot due to diabetes mellitus E11.610 [facility] [employer] [address] [id number] [place] [address] Dec Neuropathy involving both lower extremities G57.93 [facility] [address] [id number] [place] [address] Dec [facility] [address] [id number] [place] [address] November [facility] [address] [id number] [place] [address] November [facility] [address] [id number] [place] [address] November [facility] [address] [id number] [place] [address] November [facility] [address] [id number] [place] [address] November Type 2 diabetes mellitus with hyperglycemia E11.65 ; halfway current use of insulin Z79.4 ; Morbid obesity due to excess calories E66.01 ; Charcot foot due to diabetes mellitus E11.610 ; Neuropathy involving both lower extremities G57.93 ; BMI 50.0-59.9, adult Z68.43 ; Depression, unspecified depression type F32.9 and Scrotal swelling N50.89 [facility] [address] [id number] [place] [address] November [facility] [address] [id number] [place] [address] Oct Charcot foot due to diabetes mellitus E11.610 [facility] [address] [id number] [place] [address] Sep Type 2 diabetes mellitus with hyperglycemia E11.65 [facility] [address] [id number] [place] [address] Sep [facility] [address] [id number] [place] [address] Sep [facility] [address] [id number] [place] [address] Sep Charcot foot due to diabetes mellitus E11.610 [facility] [address] [id number] [place] [address] 08 Sep Scrotal swelling N50.89 ; Fungal infection of the groin B35.6 and BMI 50.0-59.9, adult Z68.43 [facility] [address] [id number] [place] [address] 05 Sep Scrotal swelling N50.89 [facility] [address] [id number] [place] [address] Sep Scrotal swelling N50.89 [facility] AGRAWAL [address] [id number] [place] [address] Aug Scrotal swelling N50.89 [facility] AGRAWAL [address] [id number] [place] [address] 14 Aug Charcot foot due to diabetes mellitus E11.610 [facility] AGRAWAL [address] [id number] [place] [address] Aug Type 2 diabetes mellitus with hyperglycemia E11.65 ; ferry terminal agent current use of insulin Z79.4 ; Morbid obesity due to excess calories E66.01 ; Charcot foot due to diabetes mellitus E11.610 ; Depression, unspecified depression type F32.9 and Essential hypertension I10 [facility] [address] [id number] [address] Aug, [facility] AGRAWAL [address] [id number] [place] [address] Aug Scrotal swelling N50.89 and Depression, unspecified depression type F32.9 [place] [address] [place] [address] [id number] [address] Jul, [place] [address]005[address], [place] [address] Jul, [place] [address] [id number] [place] [id number] Jul, [facility] AGRAWAL [address] [id number] [place] [address] Jul Scrotal swelling N50.89 [facility] AGRAWAL [address] [id number] [place] [address] Jul [facility] [address] [id number] [place] [address] Jul Scrotal swelling N50.89 [facility] AGRAWAL [address] [id number] [place] [address] Jul Charcot foot due to diabetes mellitus E11.610 [facility] [address] [id number] [place] [address] Jul Depression, unspecified depression type F32.9 and BMI 50.0-59.9, adult Z68.43 [facility] [address] [id number] [place] [address] Jun Depression, unspecified depression type F32.9 ; Charcot foot due to diabetes mellitus E11.610 and BMI 50.0-59.9, adult Z68.43 [facility] [address] [id number] [place] [address] Jun [facility] [address] [id number] [place] [address] 09 May BMI 40.0-44.9, adult Z68.41 ; Type 2 diabetes mellitus with hyperglycemia E11.65 ; Essential hypertension I10 ; Depression, unspecified depression type F32.9 ; Charcot foot due to diabetes mellitus E11.610 and ferry terminal agent current use of insulin Z79.4 [facility] AGRAWAL [address] [id number] [place] [address] May [facility] [address] [id number] [place] [address] May [facility] [address] [id number] [place] [address] May [facility] AG[facility] [address] [id number] [place] [address] Apr [facility] [address] [facility] [id number] [place] [address] Apr, [facility] [address] [id number] [place] [address] Apr [facility] [address] [id number] [place] [address] Apr Type 2 diabetes mellitus with hyperglycemia E11.65 and Depression, unspecified depression type F32.9 [facility] [address] [id number] [place] [address] Apr Encounter for immunization Z23 ; Type 2 diabetes mellitus with hyperglycemia E11.65 ; halfway current use of insulin Z79.4 ; Charcot foot due to diabetes mellitus E11.610 and Essential hypertension I10 [facility] [address] [id number] [place] [address] Mar Essential hypertension I10 ; Charcot foot due to diabetes mellitus E11.610 and Type 2 diabetes mellitus with hyperglycemia E11.65 [facility] [address] [id number] [place] [address] Mar [place] [address], [place] [address] Feb, [facility] [place] [address] [id number] [place] [address] Feb Type 2 diabetes mellitus with hyperglycemia E11.65 ; Essential hypertension I10 ; halfway current use of insulin Z79.4 ; Morbid obesity due to excess calories E66.01 ; Charcot foot due to diabetes mellitus E11.610 and Depression, unspecified depression type F32.9 [facility] [place] [address] [id number] [place] [address] Jan [facility] [place] [address] [id number] [place] [address] Jan [facility] [place] [address] [id number] [place] [address] Jan [place] [address] [facility] [id number] [place] [address] Jan, [facility] [address] [id number] [place] [address] Dec Charcot foot due to diabetes mellitus E11.610 [facility] [place] [address] [id number] [place] [address] November [facility] AGRAWAL [address] [id number] PERKINS [address] November Type 2 diabetes mellitus with hyperglycemia E11.65 ; halfway current use of insulin Z79.4 and Charcot foot due to diabetes mellitus E11.610 [facility]AL [address] [id number] [place] [address] November Bronchitis J40 [facility] AGRAWAL [address] [id number] [place] [address] Oct Cellulitis of right lower extremity L03.115 and Charcot foot due to diabetes mellitus E11.610 [facility] [address] [id number] [place] [address] Sep [place] [address] [facility] [id number], [place] [address] Sep, [facility] AGRAWAL [address] [id number] [place] [address] Sep Bronchitis J40 [facility] GACRIA [facility] [id number] [place] [address] Sep, [facility] AGRAWAL [address] [id number] [place] [address] Sep Bronchitis J40 [facility] [address] [id number] [place] [address] Sep Type 2 diabetes mellitus with hyperglycemia E11.65 [facility] [address] [id number] [place] [address] Sep [place] [address] [place] [id number] [address] Aug, [facility] [address] [id number] [place] [address] Aug Type 2 diabetes mellitus with hyperglycemia E11.65 ; Depression, unspecified depression type F32.9 ; Charcot foot due to diabetes mellitus E11.610 and Encounter for immunization Z23 [facility] [address] [id number] [place] [address] Aug [facility] [address] [id number] [place] [address] Jul Type 2 diabetes mellitus with hyperglycemia E11.65 ; halfway current use of insulin Z79.4 ; Morbid obesity due to excess calories E66.01 and Charcot foot due to diabetes mellitus E11.610 [facility] [address] [id number] [place] [address] Jun Type 2 diabetes mellitus with hyperglycemia E11.65 ; ferry terminal agent current use of insulin Z79.4 ; Morbid obesity due to excess calories E66.01 ; Charcot foot due to diabetes mellitus E11.610 and Encounter for immunization Z23 [facility] [address] [facility] [id number] [place] [address] Jun, [facility] [address] [facility] [id number] [place] [address] Jun, [facility] AGRAWAL [address] [id number] [place] [address] Jun Fever in other diseases R50.81 [facility] NGHIA [address] [id number] [place] [address] May [facility] NGHIA [address] [id number] [place] [address] May [facility] GNHIA [address] [id number] [place] [address] May Type 2 diabetes mellitus with hyperglycemia E11.65 [facility] NGHIA [address] [id number] [place] [address] May Type 2 diabetes mellitus with hyperglycemia E11.65 ; halfway current use of insulin Z79.4 ; Morbid obesity due to excess calories E66.01 ; Charcot foot due to diabetes mellitus E11.610 and Depression, unspecified depression type F32.9 IMMUNIZATIONS No Known Immunizations SOCIAL HISTORY Never Assessed REASON FOR VISIT pain pill refill PLAN OF CARE VITAL SIGNS MEDICATIONS Unknown [...]
--- OUTSIDE RECORDS SUMMARY | 2018-06-05 14:37 | XMS REPORT ---
Author Author CLAUDIA ARCHER [facility] Address [address] [place] [address] Care Team Providers Care Warper Tender Name Role Phone CLAUDIA ARCHER Unavailable PROBLEMS Type Condition ICD9-CM Code MJC28-XP Code Onset Dates Condition Status SNOMED Code Problem Charcot foot due to diabetes mellitus E11.610 Active 70574077 Problem Depression, unspecified depression type F32.9 Active 53765227 Problem Neuropathy involving both lower extremities G57.93 Active 886525958 Problem BMI 40.0-44.9, adult Z68.41 Active 678830500 Problem Type 2 diabetes mellitus with hyperglycemia E11.65 Active 76169261 Problem group home current use of insulin Z79.4 Active 781363957 Problem Essential hypertension I10 Active 63381747 Problem Morbid obesity due to excess calories E66.01 Active 126731951 ALLERGIES No Information ENCOUNTERS Encounter Location Date Diagnosis [facility] [address] [facility] [id number] [place] [address] Dec, [facility] [address] [id number] [place] [address] Dec Charcot foot due to diabetes mellitus E11.610 [facility] [address] [id number] [place] [address] Dec Neuropathy involving both lower extremities G57.93 [facility] [address] [id number] [place] [address] Dec [facility] [address] [id number] [place] [address] November [facility] [address] [id number] [place] [address] November [facility] [address] [id number] [place] [address] November [facility] [place] [address] [id number] [place] [address] November [facility] [place] [address] [id number] [place] [address] November Type 2 diabetes mellitus with hyperglycemia E11.65 ; tank terminal gauger current use of insulin Z79.4 ; Morbid obesity due to excess calories E66.01 ; Charcot foot due to diabetes mellitus E11.610 ; Neuropathy involving both lower extremities G57.93 ; BMI 50.0-59.9, adult Z68.43 ; Depression, unspecified depression type F32.9 and Scrotal swelling N50.89 [facility] [place] [address] [id number] [place] [address] November [facility] [place] [address] [id number] [place] [address] Oct Charcot foot due to diabetes mellitus E11.610 [facility] [place] [address] [id number] [place] [address] Sep Type 2 diabetes mellitus with hyperglycemia E11.65 [facility] [place] [address] [id number] [place] [address] Sep [facility] [place] [address] [id number] [place] [address] Sep [facility] [place] [address] [id number] [place] [address] Sep Charcot foot due to diabetes mellitus E11.610 [facility] [place] [address] [id number] [place] [address] 08 Sep Scrotal swelling N50.89 ; Fungal infection of the groin B35.6 and BMI 50.0-59.9, adult Z68.43 [facility] [place] [address] [id number] [place] [address] 05 Sep Scrotal swelling N50.89 [facility] [place] [address] [id number] [place] [address] Sep Scrotal swelling N50.89 [facility] [place] [address] [id number] [place] [address] Aug Scrotal swelling N50.89 [facility] [place] [address] [id number] [place] [address] 14 Aug Charcot foot due to diabetes mellitus E11.610 [facility] [place] [address] [id number] [place] [address] 09 Aug Type 2 diabetes mellitus with hyperglycemia E11.65 ; group home current use of insulin Z79.4 ; Morbid obesity due to excess calories E66.01 ; Charcot foot due to diabetes mellitus E11.610 ; Depression, unspecified depression type F32.9 and Essential hypertension I10 [facility] [address] [facility] [id number] [address] Aug, 2017 [facility] [place] [address] [id number] [place] [address] Aug Scrotal swelling N50.89 and Depression, unspecified depression type F32.9 [facility] [address] [place] [id number] [address] Jul, [facility] [address] [facility] [id number] [address] Jul, [facility] [address] [id number] [place] [id number] Jul, [facility] [place] [address] [id number] [place] [address] Jul Scrotal swelling N50.89 [facility] [place] [address] [id number] [place] [address] Jul [facility] [place] [address] [id number] [place] [address] Jul Scrotal swelling N50.89 [facility] [place] [address] [id number] [place] [address] Jul Charcot foot due to diabetes mellitus E11.610 [facility] [place] [address] [id number] [place] [address] Jul Depression, unspecified depression type F32.9 and BMI 50.0-59.9, adult Z68.43 [facility] [place] [address] [id number] [place] [address] Jun Depression, unspecified depression type F32.9 ; Charcot foot due to diabetes mellitus E11.610 and BMI 50.0-59.9, adult Z68.43 [facility] [place] [address] [id number] [place] [address] Jun [facility] [place] [address] [id number] [place] [address] May BMI 40.0-44.9, adult Z68.41 ; Type 2 diabetes mellitus with hyperglycemia E11.65 ; Essential hypertension I10 ; Depression, unspecified depression type F32.9 ; Charcot foot due to diabetes mellitus E11.610 and tank terminal gauger current use of insulin Z79.4 [facility] [place] [address] [id number] [place] [address] May [facility] [place] [address] [id number] [place] [address] May [facility] [place] [address] [id number] [place] [address] May [facility] [place] [address] [id number] [place] [address] Apr [facility] [address] [facility] [id number] [place] [address] Apr, [facility] [place] [address] [id number] [place] [address] Apr [facility] [place] [address] [id number] [place] [address] Apr Type 2 diabetes mellitus with hyperglycemia E11.65 and Depression, unspecified depression type F32.9 [facility] [place] [address] [id number] [place] [address] Apr Encounter for immunization Z23 ; Type 2 diabetes mellitus with hyperglycemia E11.65 ; tank terminal gauger current use of insulin Z79.4 ; Charcot foot due to diabetes mellitus E11.610 and Essential hypertension I10 [facility] [place] [address] [id number] [place] [address] Mar Essential hypertension I10 ; Charcot foot due to diabetes mellitus E11.610 and Type 2 diabetes mellitus with hyperglycemia E11.65 [facility] [place] [address] [id number] [place] [address] Mar [place] [address] [facility] [id number] [place] [address] Feb, [facility] [place] [address] [id number] [place] [address] Feb Type 2 diabetes mellitus with hyperglycemia E11.65 ; Essential hypertension I10 ; tank terminal gauger current use of insulin Z79.4 ; Morbid obesity due to excess calories E66.01 ; Charcot foot due to diabetes mellitus E11.610 and Depression, unspecified depression type F32.9 [facility] [place] [address] [id number] [place] [address] Jan [facility] [place] [address] [id number] [place] [address] Jan [facility] [place] [address] [id number] [place] [address] Jan [place] [address] [facility] [id number] [place] [address] Jan, [facility] [place] [address] [id number] [place] [address] Dec Charcot foot due to diabetes mellitus E11.610 [facility] [place] [address] [id number] [place] [address] November [facility] [place] [address] [id number] [place] [address] November Type 2 diabetes mellitus with hyperglycemia E11.65 ; group home current use of insulin Z79.4 and Charcot foot due to diabetes mellitus E11.610 [facility] [place] [address] [id number] [place] [address] November Bronchitis J40 [facility] [place] [address] [id number] [place] [address] Oct Cellulitis of right lower extremity L03.115 and Charcot foot due to diabetes mellitus E11.610 [facility] [place] [address] [id number] [place] [address] Sep [facility] [address] [facility] [id number] [place] [address] Sep, [facility] [place] [address] [id number] [place] [address] Sep Bronchitis J40 [facility] [address] [id number] [place] [address] Sep, [facility] [place] [address] [id number] [place] [address] Sep Bronchitis J40 [facility] [place] [address] [id number] [place] [address] Sep Type 2 diabetes mellitus with hyperglycemia E11.65 [facility] [place] [address] [id number] [place] [address] Sep [facility] [address] [facility] [id number] [place] [address] Aug, [facility] [place] [address] [id number] [place] [address] Aug Type 2 diabetes mellitus with hyperglycemia E11.65 ; Depression, unspecified depression type F32.9 ; Charcot foot due to diabetes mellitus E11.610 and Encounter for immunization Z23 [facility] [place] [address] [id number] [place] [address] Aug [facility] [place] [address] [id number] [place] [address] Jul Type 2 diabetes mellitus with hyperglycemia E11.65 ; tank terminal gauger current use of insulin Z79.4 ; Morbid obesity due to excess calories E66.01 and Charcot foot due to diabetes mellitus E11.610 [facility] [place] [address] [id number] [place] [address] 12 Dec , 2016 Type 2 diabetes mellitus with hyperglycemia E11.65 ; group home current use of insulin Z79.4 ; Morbid obesity due to excess calories E66.01 ; Charcot foot due to diabetes mellitus E11.610 and Encounter for immunization Z23 [facility] [address] [facility] [id number] [place] [address] Jun, [facility] [address] [facility] [id number] [place] [address] Jun, [facility] [place] [address] [id number] [place] [address] Jun Fever in other diseases R50.81 [facility] [place] [address] [id number] [place] [address] May [facility] [address] [id number] [place] [address] May [facility] [place] [address] [id number] [place] [address] May Type 2 diabetes mellitus with hyperglycemia E11.65 [facility] [place] [address] [id number] [place] [address] May Type 2 diabetes mellitus with hyperglycemia E11.65 ; tank terminal gauger current use of insulin Z79.4 ; Morbid obesity due to excess calories E66.01 ; Charcot foot due to diabetes mellitus E11.610 and Depression, unspecified depression type F32.9 IMMUNIZATIONS No Known Immunizations SOCIAL HISTORY Never Assessed REASON FOR VISIT Refill Request PLAN OF CARE VITAL SIGNS MEDICATIONS Medication Instructions Dosage Frequency Start Date End Date Duration Status Percocet 10-325 MG Orally every 6 hrs 1 tablet as needed 6h 28 days Active RESULTS No Results PROCEDURES [...]
--- OUTSIDE RECORDS SUMMARY | 2018-06-05 14:37 | XMS REPORT ---
Author Author CLAUDIA ARCHER [facility] Address [address] [place] [address] Care Team Providers Care Collator Hand Name Role Phone CLAUDIA ARCHER Unavailable PROBLEMS Type Condition ICD9-CM Code [id number] Code Onset Dates Condition Status SNOMED Code Problem Charcot foot due to diabetes mellitus E11.610 Active 55254272 Problem Depression, unspecified depression type F32.9 Active 66521997 Problem Neuropathy involving both lower extremities G57.93 Active 217738559 Problem BMI 40.0-44.9, adult Z68.41 Active 781201746 Problem Type 2 diabetes mellitus with hyperglycemia E11.65 Active 78195409 Problem prison current use of insulin Z79.4 Active 357433402 Problem Essential hypertension I10 Active 03495431 Problem Morbid obesity due to excess calories E66.01 Active 300263090 ALLERGIES No Information ENCOUNTERS Encounter Location Date Diagnosis [facility] [employer] [address] [id number] [place] [address] Jan [facility] [address] [facility] [id number] [place] [address] Dec, [facility] [address] [id number] [place] [address] Dec Charcot foot due to diabetes mellitus E11.610 [facility] [employer] [address] [id number] [place] [address] Dec Neuropathy involving both lower extremities G57.[address] [facility] [employer] [address] [id number] [place] [address] Dec [facility] [address] [id number] [place] [address] [facility]ITALintelloCutAGRAWAL [address] [id number] [place] [address] November [facility] [address] [id number] [place] [address] November [facility] [address] [id number] [place] [address] November [facility] [address] [id number] [place] [address] November Type 2 diabetes mellitus with hyperglycemia E11.65 ; prison current use of insulin Z79.4 ; Morbid obesity due to excess calories E66.01 ; Charcot foot due to diabetes mellitus E11.610 ; Neuropathy involving both lower extremities G57.93 ; BMI 50.0-59.9, adult Z68.43 ; Depression, unspecified depression type F32.9 and Scrotal swelling N50.89 [facility] [address] [id number] [place] [address] November [facility] [address] [id number] [place] [address] Oct Charcot foot due to diabetes mellitus E11.610 [facility] [address] [id number] [place] [address] Sep Type 2 diabetes mellitus with hyperglycemia E11.65 [facility] [address] [id number] [place] [address] Sep [facility] [address] [id number] [place] [address] Sep [facility] [address] [id number] [place] [address] Sep Charcot foot due to diabetes mellitus E11.610 [facility] [address] [id number] [place] [address] 08 Sep Scrotal swelling N50.89 ; Fungal infection of the groin B35.6 and BMI 50.0-59.9, adult Z68.43 [facility] [address] [id number] [place] [address] 05 Sep Scrotal swelling N50.89 [facility] [address] [id number] [place] [address] Sep Scrotal swelling N50.89 [facility] [employer] [address] [id number] [place] [address] Aug Scrotal swelling N50.89 [facility] [employer] [address] [id number] [place] [address] 14 Aug Charcot foot due to diabetes mellitus E11.610 [facility] [employer] [address] [id number] [place] [address] Aug Type 2 diabetes mellitus with hyperglycemia E11.65 ; lobsterman current use of insulin Z79.4 ; Morbid obesity due to excess calories E66.01 ; Charcot foot due to diabetes mellitus E11.610 ; Depression, unspecified depression type F32.9 and Essential hypertension I10 [facility] [address] [id number] [address] Aug, [facility] [employer] [address] [id number] [place] [address] Aug Scrotal swelling N50.89 and Depression, unspecified depression type F32.9 [place] [address] [id number], [place] [address] Jul, [place] [address]00565100[place], [place] [address] Jul, [address] [id number] [place] [address] Jul, [facility] [employer] [address] [id number] [place] [address] Jul Scrotal swelling N50.89 [facility] [employer] [address] [id number] [place] [address] [facility] HOSPITALLuz [place] [address] [id number] [place] [address] Jul Scrotal swelling N50.89 [facility] [address] [id number] [place] [address] Jul Charcot foot due to diabetes mellitus E11.610 [facility] [address] [id number] [place] [address] Jul Depression, unspecified depression type F32.9 and BMI 50.0-59.9, adult Z68.43 [facility] [address] [id number] [place] [address] Jun Depression, unspecified depression type F32.9 ; Charcot foot due to diabetes mellitus E11.610 and BMI 50.0-59.9, adult Z68.43 [facility] [address] [id number] [place] [address] Jun [facility] [address] [id number] [place] [address] 09 May BMI 40.0-44.9, adult Z68.41 ; Type 2 diabetes mellitus with hyperglycemia E11.65 ; Essential hypertension I10 ; Depression, unspecified depression type F32.9 ; Charcot foot due to diabetes mellitus E11.610 and lobsterman current use of insulin Z79.4 [facility] [address] [id number] [place] [address] May [facility] [address] [id number] [place] [address] May [facility] [address] [id number] [place] [address] May [facility]ITALGET Holding [facility]K [facility] [address] [id number] [place] [address] [facility] [facility]OS[facility]ITALK [facility] [address] [facility] [id number] [place] [address] Apr, [facility] [address] [id number] [place] [address] Apr [facility] [address] [id number] [place] [address] Apr Type 2 diabetes mellitus with hyperglycemia E11.65 and Depression, unspecified depression type F32.9 [facility] [address] [id number] [place] [address] Apr Encounter for immunization Z23 ; Type 2 diabetes mellitus with hyperglycemia E11.65 ; prison current use of insulin Z79.4 ; Charcot foot due to diabetes mellitus E11.610 and Essential hypertension I[address] [facility]ITALK [place] [address] [id number] [place] [address] Mar Essential hypertension I10 ; Charcot foot due to diabetes mellitus E11.610 and Type 2 diabetes mellitus with hyperglycemia E11.[address] [facility]ITALK [place] [address] [id number] [place] [address] Mar [place] [address]00565100[place], [place] [address] Feb, [facility]ITALMedical [facility] [employer] [place] [address] [id number] [place] [address] Feb Type 2 diabetes mellitus with hyperglycemia E11.65 ; Essential hypertension I10 ; prison current use of insulin Z79.4 ; Morbid obesity due to excess calories E66.01 ; Charcot foot due to diabetes mellitus E11.610 and Depression, unspecified depression type F32.[address] [facility]ITALMedical [facility] [employer] [place] [address] [id number] [place] [address] [address] [facility]Medical [facility] [place] [address] [id number] [place] [address] Jan [facility]ALSE[facility] [employer] [place] [address] [id number] [place] [address] Jan [place] [address] [facility] [id number] [place] [address] Jan, [facility] HOSPITALLuz [facility] [address] [id number] [place] [address] Dec Charcot foot due to diabetes mellitus E11.[address] [facility]ITALMedical [facility] [place] [address] [id number] [place] [address] November [facility]ALSELuz [facility] [address] [id number] [place] [address] November Type 2 diabetes mellitus with hyperglycemia E11.65 ; prison current use of insulin Z79.4 and Charcot foot due to diabetes mellitus E11.[address] [facility] HOSPITALLuz [facility] [address] [id number] [place] [address] November Bronchitis J40 [facility] [address] [id number] [place] [address] Oct Cellulitis of right lower extremity L03.115 and Charcot foot due to diabetes mellitus E11.610 [facility] [address] [id number] [place] [address] Sep [place] [address] [facility] [id number] [address] Sep, [facility] [address] [id number] [place] [address] Sep Bronchitis J40 [facility] [address]ARC[facility] [id number] [place] [address] Sep, [facility] [address] [id number] [place] [address] Sep Bronchitis J40 [facility] [address] [id number] [place] [address] Sep Type 2 diabetes mellitus with hyperglycemia E11.65 [facility] [address] [id number] [place] [address] Sep [place] [address] [id number] [place] [address] Aug, [facility] [address] [id number] [place] [address] Aug Type 2 diabetes mellitus with hyperglycemia E11.65 ; Depression, unspecified depression type F32.9 ; Charcot foot due to diabetes mellitus E11.610 and Encounter for immunization Z23 [facility] [address] [id number] [place] [address] Aug [facility] [address] [id number] [place] [address] Jul Type 2 diabetes mellitus with hyperglycemia E11.65 ; prison current use of insulin Z79.4 ; Morbid obesity due to excess calories E66.01 and Charcot foot due to diabetes mellitus E11.610 [facility] [address] [id number] [place] [address] Jun Type 2 diabetes mellitus with hyperglycemia E11.65 ; lobsterman current use of insulin Z79.4 ; Morbid obesity due to excess calories E66.01 ; Charcot foot due to diabetes mellitus E11.610 and Encounter for immunization Z23 [facility] [address] [facility] [id number] [place] [address] Jun, [facility] [address] [facility] [id number] [place] [address] Jun, [facility] [address] [id number] [place] [address] Jun Fever in other diseases R50.81 [facility] [place] [address] [id number] [place] [address] May [facility] [place] [address] [id number] [place] [address] May [facility] [employer] [address] [id number] [place] [address] May Type 2 diabetes mellitus with hyperglycemia E11.65 [facility] [place] [address] [id number] [place] [address] May Type 2 diabetes mellitus with hyperglycemia [...]
--- OUTSIDE RECORDS SUMMARY | 2018-06-05 14:38 | XMS REPORT ---
Author Author CLAUDIA ARCHER [facility] Address [address] [place] [address] Care Team Providers Care Ethics Officer Name Role Phone CLAUDIA ARCHER Unavailable PROBLEMS Type Condition ICD9-CM Code [id number] Code Onset Dates Condition Status SNOMED Code Problem Essential hypertension I10 Active 09946237 Problem Morbid obesity due to excess calories E66.01 Active 079883030 Problem Type 2 diabetes mellitus with hyperglycemia E11.65 Active 48806385 Problem manager intermediate current use of insulin Z79.4 Active 608562746 Problem Charcot foot due to diabetes mellitus E11.610 Active 63174763 Problem Depression, unspecified depression type F32.9 Active 62182079 ALLERGIES No Known Allergies SOCIAL HISTORY Never Assessed PLAN OF CARE Activity Details Follow Up prn Reason: VITAL SIGNS Height 74 in 2016-09-13 Weight 402.8 lbs 2016-09-13 Temperature 97.9 degrees Fahrenheit 2016-09-13 Heart Rate 100 bpm 2016-09-13 Respiratory Rate 20 2016-09-13 BMI 51.71 kg/m2 2016-09-13 MEDICATIONS Medication Instructions Dosage Frequency Start Date End Date Duration Status Multivitamin Men Orally PRN 1 tablet Active Bydureon 2 MG Subcutaneous weekly 2 mg Active Toujeo SoloStar 300 UNIT/ML Subcutaneous Once a day 75 units 24h 90 days Active Atorvastatin Calcium 80 MG Orally Once a day 1/2 tablet 24h May, 90 days Active MetFORMIN HCl ER 500 MG Orally 2 times a day 2 tablets 12h 30 days Active NovoLog 100 UNIT/ML Subcutaneous 3 times a day 50 unit at meals 8h 90 days Active Ibuprofen 200 MG Orally PRN 4 tab Active PredniSONE 20 mg Orally Once a day 3 tabs daily x 3 days, 2 tabs x3 days, 1 tab x3 days 24h 07 Sep, 2016 Sep, 9 days Active Percocet 10-325 MG Orally every 6 hrs 1 tablet as needed 6h Sep, 28 days Active Trintellix 20 mg Orally Once a day 1 tablet 24h 07 Aug, 2016 90 days Active Azithromycin 250 MG Orally Once a day 2 tablets on the first day, then 1 tablet daily for 4 days 24h 5 day(s) Active Lisinopril 10 mg Orally Once a day as directed 24h Active Pen Jewett 32G X 4 MM subcutaneously 3 times a day as directed 8h Sep, 90 days Active Flonase Allergy Relief 50 MCG/ACT Nasally Once a day 1 spray in each nostril 24h Jun, 30 day(s) Active RESULTS No Results PROCEDURES No Known procedures IMMUNIZATIONS No Known Immunizations MEDICAL (GENERAL) HISTORY Type Description Date Medical History type II diabetes Medical History charcoat Medical History depression Medical History Diabetic ulcer on bottom of foot per wound care Surgical History lap angel Surgical History Lt knee scope Surgical History circumscison revision Surgical History Lt foot Hospitalization History surgeries
--- OUTSIDE RECORDS SUMMARY | 2018-06-05 14:38 | XMS REPORT ---
Author Author [facility]CHER [facility] Address [address] [place] [address] Care Team Providers Care Power House Engineer Name Role Phone CLAUDIA ARCHER Unavailable PROBLEMS Type Condition ICD9-CM Code [id number]-YA Code Onset Dates Condition Status SNOMED Code Problem Essential hypertension I10 Active 93305363 Problem Morbid obesity due to excess calories E66.01 Active 435606404 Problem Type 2 diabetes mellitus with hyperglycemia E11.65 Active 50207606 Problem intermediate manager current use of insulin Z79.4 Active 561685415 Problem Charcot foot due to diabetes mellitus E11.610 Active 96386814 Problem Depression, unspecified depression type F32.9 Active 74733294 ALLERGIES No Known Allergies SOCIAL HISTORY Never Assessed PLAN OF CARE Activity Details Follow Up 3 Months Reason:dm mgmt VITAL SIGNS Height 74 in 2016-08-16 Weight 403.9 lbs 2016-08-16 Temperature 97.7 degrees Fahrenheit 2016-08-16 Heart Rate 100 bpm 2016-08-16 Respiratory Rate 20 2016-08-16 BMI 51.85 kg/m2 2016-08-16 Blood pressure systolic 136 mmHg 2016-08-16 Blood pressure diastolic 82 mmHg 2016-08-16 MEDICATIONS Medication Instructions Dosage Frequency Start Date End Date Duration Status Ibuprofen 200 MG Orally PRN 4 tab Active NovoLog 100 UNIT/ML Subcutaneous 3 times a day 50 unit at meals 8h 90 days Active Toujeo SoloStar 300 UNIT/ML Subcutaneous Once a day 75 units 24h 90 days Active Percocet 10-325 MG Orally every 6 hrs 1 tablet as needed 6h 7 Sep, 2016 28 days Active Trintellix 20 mg Orally Once a day 1 tablet 24h 07 Aug, 2016 90 days Active Atorvastatin Calcium 80 MG Orally Once a day 1/2 tablet 24h 14 May, 2016 90 days Active Bydureon 2 MG Subcutaneous weekly 2 mg Active Multivitamin Men Orally PRN 1 tablet Active Flonase Allergy Relief 50 MCG/ACT Nasally Once a day 1 spray in each nostril 24h Jun, 30 day(s) Active MetFORMIN HCl ER 500 MG Orally 2 times a day 2 tablets 12h 30 days Active Lisinopril 10 mg Orally Once a day as directed 24h Active RESULTS Name Result Date Reference Range A1C (IN HOUSE) 2016-08-16 A1C IN HOUSE 7.7 4.3 - 5.6 % Previous A1c 10.8 Lot [id number] Exp date 05/2018 PROCEDURES Procedure Date Ordered Result Body Site GLYCATED HEMOGLOBIN TEST Aug 16, 2016 PPV23 (PNEUMOVAX) Aug 16, 2016 SINGLE IMMUNIZATION ADMIN Aug 16, 2016 IMMUNIZATIONS Vaccine Route Administration Date Status PPV23 (PNEUMOVAX) IM Intramuscular Aug 16, 2016 Administered MEDICAL (GENERAL) HISTORY Type Description Date Medical History type II diabetes Medical History charcoat Medical History depression Medical History Diabetic ulcer on bottom of foot per wound care Surgical History lap angel Surgical History Lt knee scope Surgical History circumscison revision Surgical History Lt foot Hospitalization History surgeries
--- OUTSIDE RECORDS SUMMARY | 2018-06-05 14:38 | XMS REPORT ---
Author Author CLAUDIA ARCHER [facility] [place] Address [address] [place] [address] Care Team Providers Care Die Finisher Forging Name Role Phone CLAUDIA ARCHER Unavailable PROBLEMS Type Condition ICD9-CM Code LML46-LG Code Onset Dates Condition Status SNOMED Code Problem Depression, unspecified depression type F32.9 Active 32726811 Problem BMI 40.0-44.9, adult Z68.41 Active 611071459 Problem Essential hypertension I10 Active 82079082 Problem manager long term care current use of insulin Z79.4 Active 447947787 Problem Charcot foot due to diabetes mellitus E11.610 Active 57029208 Problem Morbid obesity due to excess calories E66.01 Active 511250954 Problem Type 2 diabetes mellitus with hyperglycemia E11.65 Active 26732332 ALLERGIES No Information ENCOUNTERS Encounter Location Date Diagnosis [facility] [address] [id number] [place] [address] Sep Type 2 diabetes mellitus with hyperglycemia E11.65 [facility] [address] [id number] [place] [address] Sep Charcot foot due to diabetes mellitus E11.610 [facility] [address] [id number] [place] [address] Sep [facility] [address] [id number] [place] [address] Sep [facility] [address] [id number] [place] [address] 08 Sep Scrotal swelling N50.89 ; Fungal infection of the groin B35.6 and BMI 50.0-59.9, adult Z68.43 [facility] [address] [id number] [place] [address] 05 Sep Scrotal swelling N50.89 [facility] [place] [address] [id number] [place] [address] Sep Scrotal swelling N50.89 [facility] [place] [address] [id number] [place] [address] Aug Scrotal swelling N50.89 [facility] [place] [address] [id number] [place] [address] 14 Aug Charcot foot due to diabetes mellitus E11.610 [facility] [place] [address] [id number] [place] [address] Aug Type 2 diabetes mellitus with hyperglycemia E11.65 ; manager long term care current use of insulin Z79.4 ; Morbid obesity due to excess calories E66.01 ; Charcot foot due to diabetes mellitus E11.610 ; Depression, unspecified depression type F32.9 and Essential hypertension I10 [facility] [address] [facility] [id number] [address] Aug, [facility] [place] [address] [id number] [place] [address] Aug Scrotal swelling N50.89 and Depression, unspecified depression type F32.9 [facility] [address] [address] Jul, [facility] [address] [facility] [id number][place] [address] Jul, [address] [id number] [place] [id number] Jul, [facility] [place] [address] [id number] [place] [address] Jul Scrotal swelling N50.89 [facility] [place] [address] [id number] [place] [address] Jul [facility] [place] [address] [id number] [place] [address] Jul Scrotal swelling N50.89 [facility] [place] [address] [id number] [place] [address] Jul Charcot foot due to diabetes mellitus E11.610 [facility] [place] [address] [id number] [place] [address] Jul Depression, unspecified depression type F32.9 and BMI 50.0-59.9, adult Z68.43 [facility] [place] [address] [id number] [place] [address] Jun Depression, unspecified depression type F32.9 ; Charcot foot due to diabetes mellitus E11.610 and BMI 50.0-59.9, adult Z68.43 [facility] [place] [address] [id number] [place] [address] Jun [facility] [place] [address] [id number] [place] [address] May BMI 40.0-44.9, adult Z68.41 ; Type 2 diabetes mellitus with hyperglycemia E11.65 ; Essential hypertension I10 ; Depression, unspecified depression type F32.9 ; Charcot foot due to diabetes mellitus E11.610 and manager long term care current use of insulin Z79.4 [facility] [place] [address] [id number] [place] [address] May [facility] [place] [address] [id number] [place] [address] May [facility] [place] [address] [id number] [place] [address] May [facility]Flexion TherapeuticsK [place] [address] [id number] [place] [address] Apr [facility] [address] [facility] [id number] [place] [address] Apr, [facility] [place] [address] [id number] [place] [address] Apr [facility] [place] [address] [id number] [place] [address] Apr Type 2 diabetes mellitus with hyperglycemia E11.65 and Depression, unspecified depression type F32.9 [facility] [place] [address] [id number] [place] [address] Apr Encounter for immunization Z23 ; Type 2 diabetes mellitus with hyperglycemia E11.65 ; manager long term care current use of insulin Z79.4 ; Charcot foot due to diabetes mellitus E11.610 and Essential hypertension I10 [facility] [place] [address] [id number] [place] [address] Mar Essential hypertension I10 ; Charcot foot due to diabetes mellitus E11.610 and Type 2 diabetes mellitus with hyperglycemia E11.65 [facility] [place] [address] [id number] [place] [address] Mar [place] [address] [place] [id number] [address] Feb, [facility] [place] [address] [id number] [place] [address] Feb Type 2 diabetes mellitus with hyperglycemia E11.65 ; Essential hypertension I10 ; manager long term care current use of insulin Z79.4 ; Morbid obesity due to excess calories E66.01 ; Charcot foot due to diabetes mellitus E11.610 and Depression, unspecified depression type F32.9 [facility] [place] [address] [id number] [place] [address] Jan [facility] [place] [address] [id number] [place] [address] Jan [facility] [place] [address] [id number] [place] [address] Jan [place] [address] [facility] [id number] [place] [address] Jan, [facility] [place] [address] [id number] [place] [address] Dec Charcot foot due to diabetes mellitus E11.610 [facility] [place] [address] [id number] [place] [address] November [facility] [place] [address] [id number] [place] [address] November Type 2 diabetes mellitus with hyperglycemia E11.65 ; halfway current use of insulin Z79.4 and Charcot foot due to diabetes mellitus E11.610 [facility] [place] [address] [id number] [place] [address] November Bronchitis J40 [facility] [place] [address] [id number] [place] [address] Oct Cellulitis of right lower extremity L03.115 and Charcot foot due to diabetes mellitus E11.610 [facility] [place] [address] [id number] [place] [address] Sep [facility] [address] [facility] [id number] [address] Sep, [facility] [place] [address] [id number] [place] [address] Sep Bronchitis J40 [facility] [place] [facility] [id number] [place] [address] Sep, [facility] [place] [address] [id number] [place] [address] Sep Bronchitis J40 [facility] [place] [address] [id number] [place] [address] Sep Type 2 diabetes mellitus with hyperglycemia E11.65 [facility] [place] [address] [id number] [place] [address] Sep [place] [address] [place] [address] [id number] [place] [address] Aug, [facility] [place] [address] [id number] [place] [address] Aug Type 2 diabetes mellitus with hyperglycemia E11.65 ; Depression, unspecified depression type F32.9 ; Charcot foot due to diabetes mellitus E11.610 and Encounter for immunization Z23 [facility] [place] [address] [id number] [place] [address] Aug [facility] [place] [address] [id number] [place] [address] Jul Type 2 diabetes mellitus with hyperglycemia E11.65 ; manager long term care current use of insulin Z79.4 ; Morbid obesity due to excess calories E66.01 and Charcot foot due to diabetes mellitus E11.610 [facility] [place] [address] [id number] [place] [address] Jun Type 2 diabetes mellitus with hyperglycemia E11.65 ; halfway current use of insulin Z79.4 ; Morbid obesity due to excess calories E66.01 ; Charcot foot due to diabetes mellitus E11.610 and Encounter for immunization Z23 [facility] [address] [id number] [place] [address] Jun, [facility] [address] [facility] [id number] [place] [address] Jun, [facility] [place] [address] [id number] [place] [address] Jun Fever in other diseases R50.81 [facility] [place] [address] [id number] [place] [address] May [facility] [place] [address] [id number] [place] [address] May [facility] [place] [address] [id number] [place] [address] May Type 2 diabetes mellitus with hyperglycemia E11.65 [facility] [place] [address] [id number] [place] [address] May Type 2 diabetes mellitus with hyperglycemia E11.65 ; halfway current use of insulin Z79.4 ; Morbid obesity due to excess calories E66.01 ; Charcot foot due to diabetes mellitus E11.610 and Depression, unspecified depression type F32.9 IMMUNIZATIONS No Known Immunizations SOCIAL HISTORY Never Assessed REASON FOR VISIT Pals received PLAN OF CARE VITAL SIGNS MEDICATIONS [...]
--- OUTSIDE RECORDS SUMMARY | 2018-06-05 14:38 | XMS REPORT ---
Author Author CLAUDIA ARCHER [facility] [place] Address [address] [place] [address] Care Team Providers Care Chief Service Dispatcher Name Role Phone CLAUDIA ARCHER Unavailable PROBLEMS Type Condition ICD9-CM Code PFQ97-HA Code Onset Dates Condition Status SNOMED Code Problem Depression, unspecified depression type F32.9 Active 00804814 Problem BMI 40.0-44.9, adult Z68.41 Active 419930895 Problem Essential hypertension I10 Active 74175756 Problem manager intermediate current use of insulin Z79.4 Active 380614203 Problem Charcot foot due to diabetes mellitus E11.610 Active 31673318 Problem Morbid obesity due to excess calories E66.01 Active 739255373 Problem Type 2 diabetes mellitus with hyperglycemia E11.65 Active 30518449 ALLERGIES No Known Allergies SOCIAL HISTORY Never Assessed PLAN OF CARE Activity Details Follow Up 3 Months Reason:dm mgmt VITAL SIGNS Height 74 in 2016-11-14 Weight 399.5 lbs 2016-11-14 Temperature 98.1 degrees Fahrenheit 2016-11-14 Heart Rate 94 bpm 2016-11-14 Respiratory Rate 20 2016-11-14 BMI 51.29 kg/m2 2016-11-14 Blood pressure systolic 140 mmHg 2016-11-14 Blood pressure diastolic 60 mmHg 2016-11-14 MEDICATIONS Medication Instructions Dosage Frequency Start Date End Date Duration Status Bydureon 2 MG Subcutaneous weekly 2 mg Active NovoLog 100 UNIT/ML Subcutaneous 3 times a day 50 unit at meals 8h 90 days Active Multivitamin Men Orally PRN 1 tablet Active Flonase Allergy Relief 50 MCG/ACT Nasally Once a day 1 spray in each nostril 24h Jun, 30 day(s) Active Percocet 10-325 MG Orally every 6 hrs 1 tablet as needed 6h 28 days Active Ibuprofen 200 MG Orally PRN 4 tab Active Atorvastatin Calcium 80 MG Orally Once a day 1/2 tablet 24h May, 90 days Active Trintellix 20 mg Orally Once a day 1 tablet 24h 07 Aug, 2016 90 days Active Lisinopril 10 mg Orally Once a day as directed 24h Active Toujeo SoloStar 300 UNIT/ML Subcutaneous Once a day 75 units 24h 90 days Active MetFORMIN HCl ER 500 MG Orally 2 times a day 2 tablets 12h 30 days Active Pen Gravette 32G X 4 MM subcutaneously 3 times a day as directed 8h Sep, 90 days Active RESULTS Name Result Date Reference Range A1C (IN HOUSE) 2016-11-14 A1C IN HOUSE 7.0 4.3 - 5.6 % Previous A1c 7.7 Lot [id number] Exp date 07/2018 PROCEDURES Procedure Date Ordered Result Body Site GLYCATED HEMOGLOBIN TEST November 14, 2016 IMMUNIZATIONS No Known Immunizations MEDICAL (GENERAL) HISTORY Type Description Date Medical History type II diabetes Medical History charcoat Medical History depression Medical History Diabetic ulcer on bottom of foot per wound care Surgical History lap angel Surgical History Lt knee scope Surgical History circumscison revision Surgical History Lt foot Hospitalization History surgeries
--- OUTSIDE RECORDS SUMMARY | 2018-06-05 14:38 | XMS REPORT ---
Author Author CLAUDIA ARCHER [facility] Address [address] [place] [address] Care Team Providers Care Technology Trainer Name Role Phone CLAUDIA ARCHER Unavailable PROBLEMS Type Condition ICD9-CM Code AZA08-MZ Code Onset Dates Condition Status SNOMED Code Problem Charcot foot due to diabetes mellitus E11.610 Active 73278236 Problem Depression, unspecified depression type F32.9 Active 58898064 Problem Neuropathy involving both lower extremities G57.93 Active 496201494 Problem BMI 40.0-44.9, adult Z68.41 Active 919964588 Problem Type 2 diabetes mellitus with hyperglycemia E11.65 Active 12163795 Problem 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 Active 518081204 Problem Essential hypertension I10 Active 29837536 Problem Morbid obesity due to excess calories E66.01 Active 153237186 ALLERGIES No Information ENCOUNTERS Encounter Location Date Diagnosis [facility] [address] [id number] [place] [address] Dec, [facility] [address] [id number] [place] [address] Dec Charcot foot due to diabetes mellitus E11.610 [facility] [address] [id number] [place] [address] Dec Neuropathy involving both lower extremities G57.93 [facility] [address] [id number] [place] [address] Dec [facility] [address] [id number] [place] [address] November [facility] [address] [id number] [place] [address] November [facility] [address] [id number] [place] [address] November [facility] [place] [address] [id number] [place] [address] November [facility] [place] [address] [id number] [place] [address] November Type 2 diabetes mellitus with hyperglycemia E11.65 ; official court interpreter current use of insulin Z79.4 ; Morbid obesity due to excess calories E66.01 ; Charcot foot due to diabetes mellitus E11.610 ; Neuropathy involving both lower extremities G57.93 ; BMI 50.0-59.9, adult Z68.43 ; Depression, unspecified depression type F32.9 and Scrotal swelling N50.89 [facility] [place] [address] [id number] [place] [address] November [facility] [place] [address] [id number] [place] [address] Oct Charcot foot due to diabetes mellitus E11.610 [facility] [place] [address] [id number] [place] [address] Sep Type 2 diabetes mellitus with hyperglycemia E11.65 [facility] [place] [address] [id number] [place] [address] Sep Charcot foot due to diabetes mellitus E11.610 [facility] [place] [address] [id number] [place] [address] Sep [facility] [place] [address] [id number] [place] [address] Sep [facility] [place] [address] [id number] [place] [address] Sep Scrotal swelling N50.89 ; Fungal infection of the groin B35.6 and BMI 50.0-59.9, adult Z68.43 [facility] [place] [address] [id number] [place] [address] 05 Sep Scrotal swelling N50.89 [facility] [place] [address] [id number] [place] [address] Sep Scrotal swelling N50.89 [facility] [place] [address] [id number] [place] [address] Aug Scrotal swelling N50.89 [facility] [place] [address] [id number] [place] [address] 14 Aug Charcot foot due to diabetes mellitus E11.610 [facility] [place] [address] [id number] [place] [address] 09 Aug Type 2 diabetes mellitus with hyperglycemia E11.65 ; 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 ; Morbid obesity due to excess calories E66.01 ; Charcot foot due to diabetes mellitus E11.610 ; Depression, unspecified depression type F32.9 and Essential hypertension I10 [facility] [address] [id number] [address] Aug, 2017 [facility] NGHIA [address] [id number] [place] [address] Aug Scrotal swelling N50.89 and Depression, unspecified depression type F32.9 [facility] [address] [id number] [address] Jul, [facility] [address] [id number] [place] [address] Jul, [facility] GARCIA[address] [id number] [place] [id number] Jul, [facility] [place] [address] [id number] [place] [address] Jul Scrotal swelling N50.89 [facility] [place] [address] [id number] [place] [address] Jul [facility] [place] [address] [id number] [place] [address] Jul Scrotal swelling N50.89 [facility] [place] [address] [id number] [place] [address] Jul Charcot foot due to diabetes mellitus E11.610 [facility] [place] [address] [id number] [place] [address] Jul Depression, unspecified depression type F32.9 and BMI 50.0-59.9, adult Z68.43 [facility] [place] [address] [id number] [place] [address] Jun Depression, unspecified depression type F32.9 ; Charcot foot due to diabetes mellitus E11.610 and BMI 50.0-59.9, adult Z68.43 [facility] [place] [address] [id number] [place] [address] Jun [facility] [place] [address] [id number] [place] [address] May BMI 40.0-44.9, adult Z68.41 ; Type 2 diabetes mellitus with hyperglycemia E11.65 ; Essential hypertension I10 ; Depression, unspecified depression type F32.9 ; Charcot foot due to diabetes mellitus E11.[address] interpreter current use of insulin Z79.4 [facility] [place] [address] [id number] [place] [address] May [facility] [place] [address] [id number] [place] [address] May [facility] [place] [address] [id number] [place] [address] May [facility] [place] [address] [id number] [place] [address] Apr [facility] [address] [id number] [place] [address] Apr, [facility] [place] [address] [id number] [place] [address] Apr [facility] [place] [address] [id number] [place] [address] Apr Type 2 diabetes mellitus with hyperglycemia E11.65 and Depression, unspecified depression type F32.9 [facility] [place] [address] [id number] [place] [address] Apr Encounter for immunization Z23 ; Type 2 diabetes mellitus with hyperglycemia E11.65 ; official court interpreter current use of insulin Z79.4 ; Charcot foot due to diabetes mellitus E11.610 and Essential hypertension I10 [facility]ITALNetstoryK [place] [address] [id number] [place] [address] Mar Essential hypertension I10 ; Charcot foot due to diabetes mellitus E11.610 and Type 2 diabetes mellitus with hyperglycemia E11.65 [facility] [place] [address] [id number] [place] [address] Mar [place] [address] [id number] [place] [address] Feb, [facility] [place] [address] [id number] [place] [address] Feb Type 2 diabetes mellitus with hyperglycemia E11.65 ; Essential hypertension I10 ; official court interpreter current use of insulin Z79.4 ; Morbid obesity due to excess calories E66.01 ; Charcot foot due to diabetes mellitus E11.610 and Depression, unspecified depression type F32.9 [facility] [place] [address] [id number] [place] [address] Jan [facility] [place] [address] [id number] [place] [address] Jan [facility] [place] [address] [id number] [place] [address] Jan [place] [address] [id number] [place] [address] Jan, [facility]ITALNetstoryLuz [place] [address] [id number] [place] [address] Dec Charcot foot due to diabetes mellitus E11.610 [facility]NetstoryK [place] [address] [id number] [place] [address] November [facility]ITALSEDoorbot [place] [address] [id number] [place] [address] November Type 2 diabetes mellitus with hyperglycemia E11.65 ; 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 and Charcot foot due to diabetes mellitus E11.610 [facility] [place] [address] [id number] [place] [address] November Bronchitis J40 [facility]ITALDinnDinn [place] [address] [id number] [place] [address] Oct Cellulitis of right lower extremity L03.115 and Charcot foot due to diabetes mellitus E11.610 [facility] [place] [address] [id number] [place] [address] Sep [facility] [address] [id number] [place] [address] Sep, [facility]ALSE[facility] [place] [address] [id number] [place] [address] Sep Bronchitis J40 [facility] [address] [id number] [place] [id number] Sep, [facility]ALSE[facility]uz [place] [address] [id number] [place] [address] Sep Bronchitis J40 [facility] [place] [address] [id number] [place] [address] Sep Type 2 diabetes mellitus with hyperglycemia E11.65 [facility]ALSE[facility] [place] [address] [id number] [place] [address] Sep [facility] [address] [id number] [place] [address] Aug, [facility] [place] [address] [id number] [place] [address] Aug Type 2 diabetes mellitus with hyperglycemia E11.65 ; Depression, unspecified depression type F32.9 ; Charcot foot due to diabetes mellitus E11.610 and Encounter for immunization Z23 [facility] [place] [address] [id number] [place] [address] Aug [facility] [place] [address] [id number] [place] [address] Jul Type 2 diabetes mellitus with hyperglycemia E11.65 ; official court interpreter current use of insulin Z79.4 ; Morbid obesity due to excess calories E66.01 and Charcot foot due to diabetes mellitus E11.610 [facility] [place] [address] [id number] [place] [address] 12 Dec , 2016 Type 2 diabetes mellitus with hyperglycemia E11.65 ; 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 ; Morbid obesity due to excess calories E66.01 ; Charcot foot due to diabetes mellitus E11.610 and Encounter for immunization Z23 [facility] [address] [id number] [place] [address] Jun, [facility] [address] [id number] [place] [address] Jun, [facility] [place] [address] [id number] [place] [address] Jun Fever in other diseases R50.81 [facility] [place] [address] [id number] [place] [address] May [facility] [place] [address] [id number] [place] [address] May [facility] [place] [address] [id number] [place] [address] May Type 2 diabetes mellitus with hyperglycemia E11.65 [facility] [place] [address] [id number] [place] [address] May Type 2 diabetes mellitus with hyperglycemia E11.65 ; official court interpreter current use of insulin Z79.4 ; Morbid obesity due to excess calories E66.01 ; Charcot foot due to diabetes mellitus E11.610 and Depression, unspecified depression type F32.9 IMMUNIZATIONS No Known Immunizations SOCIAL HISTORY Never Assessed REASON FOR VISIT PLAN OF CARE VITAL SIGNS MEDICATIONS Medication Instructions Dosage Frequency Start Date End Date Duration Status Lasix 40 mg Orally Once a day 1 tablet 24h Jul, 05 days Active RESULTS No Results PROCEDURES No [...]
--- OUTSIDE RECORDS SUMMARY | 2018-06-05 14:38 | XMS REPORT ---
Author Author CLAUDIA ARCHER [facility] eClinicalWorks Address Unknown Phone Unavailable Care Team Providers Care Cardiothoracic Icu Rn Name Role Phone CLAUDIA ARCHER CP Unavailable Allergies No Known Allergies Problems Problem Type Condition Code Onset Dates Condition Status Problem alf current use of insulin Z79.4 Active Problem Morbid obesity due to excess calories E66.01 Active Problem Type 2 diabetes mellitus with hyperglycemia E11.65 Active Problem Charcot foot due to diabetes mellitus E11.610 Active Problem Depression, unspecified depression type F32.9 Active Medications Medication Code System Code Instructions Start Date End Date Status Dosage Atorvastatin Calcium [facility] [address]-07 80 MG Orally Once a day May 23, 2016 1/2 tablet Results No Known Results Summary Purpose eClinicalWorks Submission
--- OUTSIDE RECORDS SUMMARY | 2018-06-05 14:38 | XMS REPORT ---
Author Author [facility] [place] Address [address] [place] [address] Care Team Providers Care Dry Cleaning Teacher Name Role Phone CLAUDIA ARCHER Unavailable PROBLEMS Type Condition ICD9-CM Code HAI51-SA Code Onset Dates Condition Status SNOMED Code Problem Type 2 diabetes mellitus with hyperglycemia E11.65 Active 85504202 Problem half-way current use of insulin Z79.4 Active 303970517 Problem Depression, unspecified depression type F32.9 Active 45160800 Problem Morbid obesity due to excess calories E66.01 Active 034197336 Problem Charcot foot due to diabetes mellitus E11.610 Active 19756612 ALLERGIES Unknown Allergies SOCIAL HISTORY No smoking Hx information available PLAN OF CARE VITAL SIGNS MEDICATIONS Medication Instructions Dosage Frequency Start Date End Date Duration Status Bydureon 2 MG DX-E11.65 weekly 2 mg Jun, Active RESULTS No Results PROCEDURES No Known procedures IMMUNIZATIONS No Known Immunizations
--- OUTSIDE RECORDS SUMMARY | 2018-06-05 14:38 | XMS REPORT ---
Author Author [facility]ER [facility] [place] Address [address] [place] [address] Care Team Providers Care Mail Processing Associate Name Role Phone CLAUDIA ARCHER Unavailable PROBLEMS Type Condition ICD9-CM Code OUE04-SL Code Onset Dates Condition Status SNOMED Code Problem Essential hypertension I10 Active 37297164 Problem Morbid obesity due to excess calories E66.01 Active 426122786 Problem Type 2 diabetes mellitus with hyperglycemia E11.65 Active 84956319 Problem traffic assistant current use of insulin Z79.4 Active 834671919 Problem Charcot foot due to diabetes mellitus E11.610 Active 35207059 Problem Depression, unspecified depression type F32.9 Active 36105616 ALLERGIES Substance Reaction Event Type Date Status N.K.D.A. Unknown Non Drug Allergy Jun, Unknown SOCIAL HISTORY No smoking Hx information available PLAN OF CARE Activity Details Follow Up prn Reason: VITAL SIGNS Height 74 in 2016-06-09 Weight 390.7 lbs 2016-06-09 Temperature 99.9 degrees Fahrenheit 2016-06-09 Heart Rate 96 bpm 2016-06-09 Respiratory Rate 24 2016-06-09 Oximetry 94 % 2016-06-09 BMI 50.16 kg/m2 2016-06-09 Blood pressure systolic 150 mmHg 2016-06-09 Blood pressure diastolic 60 mmHg 2016-06-09 MEDICATIONS Medication Instructions Dosage Frequency Start Date End Date Duration Status Atorvastatin Calcium 80 MG Orally Once a day 1/2 tablet 24h May, 90 days Active Trintellix 10 mg Orally Once a day 1 tablet 24h Active Ibuprofen 200 MG Orally PRN 4 tab Active Percocet 10-325 MG Orally PRN 1 tablet as needed Active MetFORMIN HCl ER 500 MG Orally 2 times a day 1 tablet 12h May, Active Nesina 25 MG Orally Once a day 1 tablet 24h 90 days Active Tamiflu 75 MG Orally Twice a day 1 capsule 12h Jun, 5 day(s) Active Lisinopril 5 mg Orally Once a day 1 tab 24h Active Azithromycin 250 MG Orally Once a day 2 tablets on the first day, then 1 tablet daily for 4 days 24h Jun, Jun, 5 day(s) Active NovoLog 100 UNIT/ML Subcutaneous 3 times a day 50 unit at meals 8h 90 days Active Toujeo SoloStar 300 UNIT/ML Subcutaneous Once a day 75 units 24h 90 days Active RESULTS No Results PROCEDURES Procedure Date Ordered Related Diagnosis Body Site MEASURE BLOOD OXYGEN LEVEL Jun 09, 2016 INFLUENZA ASSAY W/OPTIC Jun 09, 2016 Office Visit, Est Pt., Level 3 Jun 09, 2016 IMMUNIZATIONS No Known Immunizations
--- OUTSIDE RECORDS SUMMARY | 2018-06-05 14:38 | XMS REPORT ---
Author Author CLAUDIA ARCHER [facility] Address [address] [place] [address] Care Team Providers Care [employer] Name Role Phone CLAUDIA ARCHER Unavailable PROBLEMS Type Condition ICD9-CM Code VPU67-ZT Code Onset Dates Condition Status SNOMED Code Problem Charcot foot due to diabetes mellitus E11.610 Active 34424963 Problem Depression, unspecified depression type F32.9 Active 73601592 Problem Neuropathy involving both lower extremities G57.93 Active 908089302 Problem BMI 40.0-44.9, adult Z68.41 Active 851050722 Problem Type 2 diabetes mellitus with hyperglycemia E11.65 Active 82819567 Problem care home current use of insulin Z79.4 Active 834939086 Problem Essential hypertension I10 Active 43764873 Problem Morbid obesity due to excess calories E66.01 Active 735003685 ALLERGIES No Information ENCOUNTERS Encounter Location Date Diagnosis [facility] [address] [facility] [id number] [place] [address] Dec, [facility] [address] [id number] [place] [address] Dec Charcot foot due to diabetes mellitus E11.610 [facility] [address] [id number] [place] [address] Dec Neuropathy involving both lower extremities G57.93 [facility] [address] [id number] [place] [address] Dec [facility] [address] [id number] [place] [address] November [facility] [address] [id number] [place] [address] November [facility] [address] [id number] [place] [address] November [facility] [place] [address] [id number] [place] [address] November [facility] [address] [id number] [place] [address] November Type 2 diabetes mellitus with hyperglycemia E11.65 ; tufter hand current use of insulin Z79.4 ; Morbid obesity due to excess calories E66.01 ; Charcot foot due to diabetes mellitus E11.610 ; Neuropathy involving both lower extremities G57.93 ; BMI 50.0-59.9, adult Z68.43 ; Depression, unspecified depression type F32.9 and Scrotal swelling N50.89 [facility] [address] [id number] [place] [address] November [facility] [place] [address] [id number] [place] [address] Oct Charcot foot due to diabetes mellitus E11.610 [facility] [place] [address] [id number] [place] [address] Sep Type 2 diabetes mellitus with hyperglycemia E11.65 [facility] [place] [address] [id number] [place] [address] Sep Charcot foot due to diabetes mellitus E11.610 [facility] [address] [id number] [place] [address] Sep [facility] [address] [id number] [place] [address] Sep [facility] [place] [address] [id number] [place] [address] Sep Scrotal swelling N50.89 ; Fungal infection of the groin B35.6 and BMI 50.0-59.9, adult Z68.43 [facility] [place] [address] [id number] [place] [address] 05 Sep Scrotal swelling N50.89 [facility] [place] [address] [id number] [place] [address] Sep Scrotal swelling N50.89 [facility] [place] [address] [id number] [place] [address] Aug Scrotal swelling N50.89 [facility] [address] [id number] [place] [address] 14 Aug Charcot foot due to diabetes mellitus E11.610 [facility] [address] [id number] [place] [address] 09 Aug Type 2 diabetes mellitus with hyperglycemia E11.65 ; care home current use of insulin Z79.4 ; Morbid obesity due to excess calories E66.01 ; Charcot foot due to diabetes mellitus E11.610 ; Depression, unspecified depression type F32.9 and Essential hypertension I10 [facility] [address] [facility] [id number] [address] 07 Aug, 2017 [facility] NGHIA [address] [id number] [place] [address] Aug Scrotal swelling N50.89 and Depression, unspecified depression type F32.9 [facility] [address] [id number], [place] [address] Jul, [facility] [address] [facility] [id number], [place] [address] Jul, [facility] GARCIA[address] [id number] [place] [id number] Jul, [facility] [place] [address] [id number] [place] [address] Jul Scrotal swelling N50.89 [facility] [place] [address] [id number] [place] [address] Jul [facility] [place] [address] [id number] [place] [address] Jul Scrotal swelling N50.89 [facility] [place] [address] [id number] [place] [address] Jul Charcot foot due to diabetes mellitus E11.610 [facility] [place] [address] [id number] [place] [address] Jul Depression, unspecified depression type F32.9 and BMI 50.0-59.9, adult Z68.43 [facility] [place] [address] [id number] [place] [address] Jun Depression, unspecified depression type F32.9 ; Charcot foot due to diabetes mellitus E11.610 and BMI 50.0-59.9, adult Z68.43 [facility] [place] [address] [id number] [place] [address] Jun [facility] [place] [address] [id number] [place] [address] May BMI 40.0-44.9, adult Z68.41 ; Type 2 diabetes mellitus with hyperglycemia E11.65 ; Essential hypertension I10 ; Depression, unspecified depression type F32.9 ; Charcot foot due to diabetes mellitus E11.610 and tufter hand current use of insulin Z79.4 [facility] [place] [address] [id number] [place] [address] May [facility] [place] [address] [id number] [place] [address] May [facility] [place] [address] [id number] [place] [address] May [facility] [place] [address] [id number] [place] [address] Apr [facility] [address] [facility] [id number] [place] [address] Apr, [facility] [place] [address] [id number] [place] [address] Apr [facility] [place] [address] [id number] [place] [address] Apr Type 2 diabetes mellitus with hyperglycemia E11.65 and Depression, unspecified depression type F32.9 [facility] [place] [address] [id number] [place] [address] Apr Encounter for immunization Z23 ; Type 2 diabetes mellitus with hyperglycemia E11.65 ; tufter hand current use of insulin Z79.4 ; Charcot foot due to diabetes mellitus E11.610 and Essential hypertension I10 [facility] AGK [place] [address] [id number] [place] [address] Mar Essential hypertension I10 ; Charcot foot due to diabetes mellitus E11.610 and Type 2 diabetes mellitus with hyperglycemia E11.65 [facility] [place] [address] [id number] [place] [address] Mar [address] [address] [address] [facility] [id number] [place] [address] Feb, [facility] [place] [address] [id number] [place] [address] Feb Type 2 diabetes mellitus with hyperglycemia E11.65 ; Essential hypertension I10 ; tufter hand current use of insulin Z79.4 ; Morbid obesity due to excess calories E66.01 ; Charcot foot due to diabetes mellitus E11.610 and Depression, unspecified depression type F32.9 [facility] [place] [address] [id number] [place] [address] Jan [facility] [place] [address] [id number] [place] [address] Jan [facility] [place] [address] [id number] [place] [address] Jan [place] [address] [facility] [id number] [place] [address] Jan, [facility] AGLuz [place] [address] [id number] [place] [address] Dec Charcot foot due to diabetes mellitus E11.610 [facility] AGK [place] [address] [id number] [place] [address] November [facility] [place] [address] [id number] [place] [address] November Type 2 diabetes mellitus with hyperglycemia E11.65 ; care home current use of insulin Z79.4 and Charcot foot due to diabetes mellitus E11.610 [facility] [place] [address] [id number] [place] [address] November Bronchitis J40 [facility] [place] [address] [id number] [place] [address] Oct Cellulitis of right lower extremity L03.115 and Charcot foot due to diabetes mellitus E11.610 [facility] [place] [address] [id number] [place] [address] Sep [facility] [address] [facility] [id number] [place] [address] Sep, [facility] N[place] [address] [id number] [place] [address] Sep Bronchitis J40 [facility] [address] [id number] [place] [address] Sep, [facility] [place] [address] [id number] [place] [address] Sep Bronchitis J40 [facility] [place] [address] [id number] [place] [address] Sep Type 2 diabetes mellitus with hyperglycemia E11.65 [facility] [place] [address] [id number] [place] [address] Sep [facility] [address] [facility] [id number] [place] [address] Aug, [facility] N[place] [address] [id number] [place] [address] Aug Type 2 diabetes mellitus with hyperglycemia E11.65 ; Depression, unspecified depression type F32.9 ; Charcot foot due to diabetes mellitus E11.610 and Encounter for immunization Z23 [facility] [place] [address] [id number] [place] [address] Aug [facility] [address] [id number] [place] [address] Jul Type 2 diabetes mellitus with hyperglycemia E11.65 ; tufter hand current use of insulin Z79.4 ; Morbid obesity due to excess calories E66.01 and Charcot foot due to diabetes mellitus E11.610 [facility] [place] [address] [id number] [place] [address] 12 Dec , 2016 Type 2 diabetes mellitus with hyperglycemia E11.65 ; care home current use of insulin Z79.4 ; Morbid obesity due to excess calories E66.01 ; Charcot foot due to diabetes mellitus E11.610 and Encounter for immunization Z23 [facility] [address] [facility] [id number] [place] [address] Jun, [facility] [address] [facility] [id number] [place] [address] Jun, [facility] [place] [address] [id number] [place] [address] Jun Fever in other diseases R50.81 [facility] [place] [address] [id number] [place] [address] May [facility] [address] [id number] [place] [address] May [facility] [place] [address] [id number] [place] [address] May Type 2 diabetes mellitus with hyperglycemia E11.65 [facility] [place] [address] [id number] [place] [address] May Type 2 diabetes mellitus with hyperglycemia E11.65 ; tufter hand current use of insulin Z79.4 ; [...] needed 6h Aug, Sep, 28 days Active RESULTS No Results [...]
--- OUTSIDE RECORDS SUMMARY | 2018-06-05 14:39 | XMS REPORT ---
Author Author CLAUDIA ARCHER [facility] [place] Address [address] [place] [address] Care Team Providers Care Senior Analysis Specialist Name Role Phone CLAUDIA ARCHER Unavailable PROBLEMS Type Condition ICD9-CM Code TGY64-QV Code Onset Dates Condition Status SNOMED Code Problem Charcot foot due to diabetes mellitus E11.610 Active 24540322 Problem Depression, unspecified depression type F32.9 Active 96571758 Problem Neuropathy involving both lower extremities G57.93 Active 266461631 Problem BMI 40.0-44.9, adult Z68.41 Active 627119705 Problem Type 2 diabetes mellitus with hyperglycemia E11.65 Active 60738335 Problem intermediate current use of insulin Z79.4 Active 017589904 Problem Essential hypertension I10 Active 57149185 Problem Morbid obesity due to excess calories E66.01 Active 161478062 ALLERGIES No Information ENCOUNTERS Encounter Location Date Diagnosis [facility] [address] [id number] [place] [address] Dec [facility] [address] [id number] [place] [address] November [facility] [address] [id number] [place] [address] November Type 2 diabetes mellitus with hyperglycemia E11.65 ; intermediate current use of insulin Z79.4 ; Morbid obesity due to excess calories E66.01 ; Charcot foot due to diabetes mellitus E11.610 ; Neuropathy involving both lower extremities G57.93 ; BMI 50.0-59.9, adult Z68.43 ; Depression, unspecified depression type F32.9 and Scrotal swelling N50.89 [facility] [employer] [address] [id number] [place] [address] November [facility] Loteda [place] [id number] [place] [address] Oct Charcot foot due to diabetes mellitus E11.610 [facility] [place] [address] [id number] [place] [address] Sep Type 2 diabetes mellitus with hyperglycemia E11.65 [facility] [place] [address] [id number] [place] [address] Sep [facility] [address] [id number] [place] [address] Sep [facility] [address] [id number] [place] [address] Sep Charcot foot due to diabetes mellitus E11.610 [facility] [address] [id number] [place] [address] Sep Scrotal swelling N50.89 ; Fungal infection of the groin B35.6 and BMI 50.0-59.9, adult Z68.43 [facility] [place] [address] [id number] [place] [address] 05 Sep Scrotal swelling N50.89 [facility] [place] [address] [id number] [place] [address] Sep Scrotal swelling N50.89 [facility] [address] [id number] [place] [address] Aug Scrotal swelling N50.89 [facility] [address] [id number] [place] [address] 14 Aug Charcot foot due to diabetes mellitus E11.610 [facility] [place] [address] [id number] [place] [address] 09 Aug Type 2 diabetes mellitus with hyperglycemia E11.65 ; dedicated intermodal truck driver current use of insulin Z79.4 ; Morbid obesity due to excess calories E66.01 ; Charcot foot due to diabetes mellitus E11.610 ; Depression, unspecified depression type F32.9 and Essential hypertension I10 [facility] [address] [facility] [id number] [place] [address] 07 Aug, 2017 [facility] [address] [id number] [place] [address] Aug Scrotal swelling N50.89 and Depression, unspecified depression type F32.9 [facility] [address] [facility] [id number] [place] [address] Jul, [facility] [address] [facility] [id number] [place] [address] Jul, [facility] [address] [id number] [place] [id number] Jul, [facility] [place] [address] [id number] [place] [address] Jul Scrotal swelling N50.89 [facility] [place] [address] [id number] [place] [address] Jul [facility] [place] [address] [id number] [place] [address] Jul Scrotal swelling N50.89 [facility] [place] [address] [id number] [place] [address] Jul Charcot foot due to diabetes mellitus E11.610 [facility] [place] [address] [id number] [place] [address] Jul Depression, unspecified depression type F32.9 and BMI 50.0-59.9, adult Z68.43 [facility] [place] [address] [id number] [place] [address] Jun Depression, unspecified depression type F32.9 ; Charcot foot due to diabetes mellitus E11.610 and BMI 50.0-59.9, adult Z68.43 [facility] [place] [address] [id number] [place] [address] Jun [facility] [place] [address] [id number] [place] [address] May BMI 40.0-44.9, adult Z68.41 ; Type 2 diabetes mellitus with hyperglycemia E11.65 ; Essential hypertension I10 ; Depression, unspecified depression type F32.9 ; Charcot foot due to diabetes mellitus E11.610 and intermediate current use of insulin Z79.4 [facility] [place] [address] [id number] [place] [address] May [facility] [place] [address] [id number] [place] [address] May [facility] [place] [address] [id number] [place] [address] May [facility] [place] [address] [id number] [place] [address] Apr [facility] [address] [facility] [id number] [place] [address] Apr, [facility] [place] [address] [id number] [place] [address] Apr [facility] [place] [address] [id number] [place] [address] Apr Type 2 diabetes mellitus with hyperglycemia E11.65 and Depression, unspecified depression type F32.9 [facility] [place] [address] [id number] [place] [address] Apr Encounter for immunization Z23 ; Type 2 diabetes mellitus with hyperglycemia E11.65 ; intermediate current use of insulin Z79.4 ; Charcot foot due to diabetes mellitus E11.610 and Essential hypertension I10 [facility] [place] [address] [id number] [place] [address] Mar Essential hypertension I10 ; Charcot foot due to diabetes mellitus E11.610 and Type 2 diabetes mellitus with hyperglycemia E11.65 [facility] [place] [address] [id number] [place] [address] Mar [facility] [address] [facility] [id number] [place] [address] Feb, [facility] [place] [address] [id number] [place] [address] Feb Type 2 diabetes mellitus with hyperglycemia E11.65 ; Essential hypertension I10 ; intermediate current use of insulin Z79.4 ; Morbid obesity due to excess calories E66.01 ; Charcot foot due to diabetes mellitus E11.610 and Depression, unspecified depression type F32.9 [facility] [place] [address] [id number] [place] [address] Jan [facility] [place] [address] [id number] [place] [address] Jan [facility] [place] [address] [id number] [place] [address] Jan [place] [address] [facility] [id number] [place] [address] Jan, [facility] [place] [address] [id number] [place] [address] Dec Charcot foot due to diabetes mellitus E11.610 [facility] [place] [address] [id number] [place] [address] November [facility] [place] [address] [id number] [place] [address] November Type 2 diabetes mellitus with hyperglycemia E11.65 ; dedicated intermodal truck driver current use of insulin Z79.4 and Charcot foot due to diabetes mellitus E11.610 [facility] [place] [address] [id number] [place] [address] November Bronchitis J40 [facility] [place] [address] [id number] [place] [address] Oct Cellulitis of right lower extremity L03.115 and Charcot foot due to diabetes mellitus E11.610 [facility] [place] [address] [id number] [place] [address] Sep [facility] [address] [facility] [id number] [place] [address] Sep, [facility] [place] [address] [id number] [place] [address] Sep Bronchitis J40 [facility] [address] [id number] [place] [address] Sep, [facility] [place] [address] [id number] [place] [address] 07 Mar , 2017 Bronchitis J40 [facility] [place] [address] [id number] [place] [address] Sep Type 2 diabetes mellitus with hyperglycemia E11.65 [facility] NGH[place] [address] [id number] [place] [address] Sep [place] [address] [facility] [id number] [place] [address] Aug, [facility] [place] [address] [id number] [place] [address] Aug Type 2 diabetes mellitus with hyperglycemia E11.65 ; Depression, unspecified depression type F32.9 ; Charcot foot due to diabetes mellitus E11.610 and Encounter for immunization Z23 [facility] [place] [address] [id number] [place] [address] Aug [facility] [place] [address] [id number] [place] [address] Jul Type 2 diabetes mellitus with hyperglycemia E11.65 ; intermediate current use of insulin Z79.4 ; Morbid obesity due to excess calories E66.01 and Charcot foot due to diabetes mellitus E11.610 [facility] [place] [address] [id number] [place] [address] Jun Type 2 diabetes mellitus with hyperglycemia E11.65 ; intermediate current use of insulin Z79.4 ; Morbid obesity due to excess calories E66.01 ; Charcot foot due to diabetes mellitus E11.610 and Encounter for immunization Z23 [place] [address] [place] [id number] [place] [address] Jun, [place] [address] [place] [id number] [address] Jun, [facility] [place] [address] [id number] [place] [address] Jun Fever in other diseases R50.81 [facility] [place] [address] [id number] [place] [address] May [facility] [place] [address] [id number] [place] [address] May [facility] [place] [address] [id number] [place] [address] May Type 2 diabetes mellitus with hyperglycemia E11.65 [facility] [address] [id number] [place] [address] May Type 2 diabetes mellitus with hyperglycemia E11.65 ; dedicated intermodal truck driver current use of insulin Z79.4 ; Morbid obesity due to excess calories E66.01 ; Charcot foot due to diabetes mellitus E11.610 and Depression, unspecified depression type F32.9 IMMUNIZATIONS No Known Immunizations SOCIAL HISTORY Never Assessed REASON FOR VISIT Pals order PLAN OF CARE VITAL SIGNS MEDICATIONS Unknown [...]
--- OUTSIDE RECORDS SUMMARY | 2018-06-05 14:39 | XMS REPORT ---
Author Author CLAUDIA ARCHER [facility] Address [address] [place] [address] Care Team Providers Care Energy Project Manager Name Role Phone CLAUDIA ARCHER Unavailable PROBLEMS Type Condition ICD9-CM Code [id number] Code Onset Dates Condition Status SNOMED Code Problem Charcot foot due to diabetes mellitus E11.610 Active 72798123 Problem Depression, unspecified depression type F32.9 Active 99197902 Problem Neuropathy involving both lower extremities G57.93 Active 358638139 Problem BMI 40.0-44.9, adult Z68.41 Active 206041096 Problem Type 2 diabetes mellitus with hyperglycemia E11.65 Active 93235308 Problem 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 Active 273661440 Problem Essential hypertension I10 Active 00937211 Problem Morbid obesity due to excess calories E66.01 Active 511174310 ALLERGIES No Known Allergies ENCOUNTERS Encounter Location Date Diagnosis [facility] [address] [facility] [id number] [place] [address] Dec, [email or web address] [address] [id number] [place] [address] Dec Charcot foot due to diabetes mellitus E11.610 [facility] [address] [id number] [place] [address] Dec Neuropathy involving both lower extremities G57.93 [facility] [address] [id number] [place] [address] Dec [email or web address] [address] [id number] [place] [address] November [facility] [address] [id number] [place] [address] November [facility] [address] [id number] [place] [address] November [facility] [place] [address] [id number] [place] [address] November [facility] [place] [address] [id number] [place] [address] November Type 2 diabetes mellitus with hyperglycemia E11.65 ; 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 ; Morbid obesity due to excess calories E66.01 ; Charcot foot due to diabetes mellitus E11.610 ; Neuropathy involving both lower extremities G57.93 ; BMI 50.0-59.9, adult Z68.43 ; Depression, unspecified depression type F32.9 and Scrotal swelling N50.89 [facility] [place] [address] [id number] [place] [address] November [facility] [place] [address] [id number] [place] [address] Oct Charcot foot due to diabetes mellitus E11.610 [facility] [place] [address] [id number] [place] [address] Sep Type 2 diabetes mellitus with hyperglycemia E11.65 [facility] [place] [address] [id number] [place] [address] Sep [facility] [place] [address] [id number] [place] [address] Sep [facility] [place] [address] [id number] [place] [address] Sep Charcot foot due to diabetes mellitus E11.610 [facility] [place] [address] [id number] [place] [address] Sep Scrotal swelling N50.89 ; Fungal infection of the groin B35.6 and BMI 50.0-59.9, adult Z68.43 [facility] [place] [address] [id number] [place] [address] 05 Sep Scrotal swelling N50.89 [facility] [place] [address] [id number] [place] [address] Sep Scrotal swelling N50.89 [facility] [place] [address] [id number] [place] [address] Aug Scrotal swelling N50.89 [facility] [place] [address] [id number] [place] [address] 14 Aug Charcot foot due to diabetes mellitus E11.610 [facility] [place] [address] [id number] [place] [address] 09 Aug Type 2 diabetes mellitus with hyperglycemia E11.65 ; 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 ; Morbid obesity due to excess calories E66.01 ; Charcot foot due to diabetes mellitus E11.610 ; Depression, unspecified depression type F32.9 and Essential hypertension I10 [facility] [address] [facility] [id number], [place] [address] 07 Aug, 2017 [facility] NGHIA [address] [id number] [place] [address] Aug Scrotal swelling N50.89 and Depression, unspecified depression type F32.9 [place] [address] [id number], [place] [address] Jul, [facility] [address] [facility] [id number], [place] [address] Jul, [facility] GARCIA[address] [id number] [place] [address] Jul, [facility] [place] [address] [id number] [place] [address] Jul Scrotal swelling N50.89 [facility] [place] [address] [id number] [place] [address] Jul [facility] [place] [address] [id number] [place] [address] Jul Scrotal swelling N50.89 [facility] [place] [address] [id number] [place] [address] Jul Charcot foot due to diabetes mellitus E11.610 [facility] [place] [address] [id number] [place] [address] Jul Depression, unspecified depression type F32.9 and BMI 50.0-59.9, adult Z68.43 [facility] [place] [address] [id number] [place] [address] Jun Depression, unspecified depression type F32.9 ; Charcot foot due to diabetes mellitus E11.610 and BMI 50.0-59.9, adult Z68.43 [facility] [place] [address] [id number] [place] [address] Jun [facility] [place] [address] [id number] [place] [address] May BMI 40.0-44.9, adult Z68.41 ; Type 2 diabetes mellitus with hyperglycemia E11.65 ; Essential hypertension I10 ; Depression, unspecified depression type F32.9 ; Charcot foot due to diabetes mellitus E11.610 and 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 [facility] [place] [address] [id number] [place] [address] May [facility] [place] [address] [id number] [place] [address] May [facility] [place] [address] [id number] [place] [address] May [facility] [place] [address] [id number] [place] [address] Apr [facility] [address] [facility] [id number] [place] [address] Apr, [facility] [place] [address] [id number] [place] [address] Apr [facility] [place] [address] [id number] [place] [address] Apr Type 2 diabetes mellitus with hyperglycemia E11.65 and Depression, unspecified depression type F32.9 [facility] [place] [address] [id number] [place] [address] Apr Encounter for immunization Z23 ; Type 2 diabetes mellitus with hyperglycemia E11.65 ; 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 ; Charcot foot due to diabetes mellitus E11.610 and Essential hypertension I10 [facility] SpeechK [place] [address] [id number] [place] [address] Mar Essential hypertension I10 ; Charcot foot due to diabetes mellitus E11.610 and Type 2 diabetes mellitus with hyperglycemia E11.65 [facility] [place] [address] [id number] [place] [address] Mar [place] [address] [facility] [id number], [place] [address] Feb, [facility] [place] [address] [id number] [place] [address] Feb Type 2 diabetes mellitus with hyperglycemia E11.65 ; Essential hypertension I10 ; 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 ; Morbid obesity due to excess calories E66.01 ; Charcot foot due to diabetes mellitus E11.610 and Depression, unspecified depression type F32.9 [facility] [place] [address] [id number] [place] [address] Jan [facility] [place] [address] [id number] [place] [address] Jan [facility] [place] [address] [id number] [place] [address] Jan [place] [address] [facility] [id number] [place] [address] Jan, [facility] [employer] [place] [address] [id number] [place] [address] Dec Charcot foot due to diabetes mellitus E11.610 [facility] [place] [address] [id number] [place] [address] November [facility]ENTERSEStra[facility] [place] [address] [id number] [place] [address] November Type 2 diabetes mellitus with hyperglycemia E11.65 ; 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 and Charcot foot due to diabetes mellitus E11.610 [facility] [place] [address] [id number] [place] [address] November Bronchitis J40 [facility] [place] [address] [id number] [place] [address] Oct Cellulitis of right lower extremity L03.115 and Charcot foot due to diabetes mellitus E11.610 [facility] [place] [address] [id number] [place] [address] Sep [facility] [address] [facility] [id number] [place] [address] Sep, [facility] [place] [address] [id number] [place] [address] Sep Bronchitis J40 [facility]IT[facility] [address] [id number] [place] [address] Sep, [facility] [place] [address] [id number] [place] [address] Sep Bronchitis J40 [facility] [place] [address] [id number] [place] [address] Sep Type 2 diabetes mellitus with hyperglycemia E11.65 [facility] [place] [address] [id number] [place] [address] Sep [facility] [address] [facility] [id number] [place] [address] Aug, [facility] [address] [id number] [place] [address] Aug Type 2 diabetes mellitus with hyperglycemia E11.65 ; Depression, unspecified depression type F32.9 ; Charcot foot due to diabetes mellitus E11.610 and Encounter for immunization Z23 [facility] [place] [address] [id number] [place] [address] Aug [facility] [place] [address] [id number] [place] [address] Jul Type 2 diabetes mellitus with hyperglycemia E11.65 ; 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 ; Morbid obesity due to excess calories E66.01 and Charcot foot due to diabetes mellitus E11.610 [facility] [place] [address] [id number] [place] [address] Jun Type 2 diabetes mellitus with hyperglycemia E11.65 ; 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 ; Morbid obesity due to excess calories E66.01 ; Charcot foot due to diabetes mellitus E11.610 and Encounter for immunization Z23 [facility] [address] [facility] [id number] [place] [address] Jun, [facility] [address] [facility] [id number] [place] [address] Jun, [facility] [place] [address] [id number] [place] [address] Jun Fever in other diseases R50.81 [facility] [place] [address] [id number] [place] [address] May [facility] [address] [id number] [place] [address] May [facility] [place] [address] [id number] [place] [address] May Type 2 diabetes mellitus with hyperglycemia E11.65 [facility] [place] [address] [id number] [place] [address] May Type 2 diabetes mellitus with hyperglycemia E11.65 ; 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 PERICO Arroyo PLAN OF CARE Activity Details Follow Up prn Reason: VITAL SIGNS Height 74 in 2017-08-10 Weight 420.9 lbs 2017-08-10 Temperature 97.8 degrees Fahrenheit 2017-08-10 Heart Rate 86 bpm 2017-08-10 Respiratory Rate 18 2017-08-10 Oximetry 95 % 2017-08-10 BMI 54.03 kg/m2 2017-08-10 Blood pressure systolic 120 mmHg 2017-08-10 Blood pressure diastolic 74 mmHg 2017-08-10 MEDICATIONS Medication Instructions Dosage Frequency Start Date End Date Duration Status Glucocard Expression Test - subcutaneously 4 times a day- 100 strips as directed Mar, 30 days Active Viibryd 20 mg Orally Once a day 1 tablet with food 24h Jun, 90 days Active Multivitamin Men Orally PRN 1 tablet Active Glucocard Expression Monitor w/Device as directed Mar, Active Toujeo SoloStar 300 UNIT/ML Subcutaneous Once a day 75 units 24h 90 days Active Percocet 10-325 MG Orally every 6 hrs 1 tablet as needed 6h 28 days Active Lasix 40 mg Orally Once a day 1 tablet 24h Jul, 05 days Not- Taking NovoLog 100 UNIT/ML Subcutaneous 3 times a day 50 unit at meals 8h 90 days Active Ibuprofen 200 MG Orally PRN 4 tab Active Bydureon 2 MG Subcutaneous weekly 2 mg 90 days Active Levaquin 750 MG Orally Once a day 1 tablet 24h Jul, 2 Aug, 2017 07 days Active Pen [place] 32G X 4 MM subcutaneously 3 times a day as directed 8h Sep, 90 days Active Atorvastatin Calcium 80 MG Orally Once a day 1/2 tablet 24h May, 90 days Active MetFORMIN HCl ER 500 MG TAKE 2 TABLETS BY MOUTH TWICE DAILY 30 Active Lisinopril 40 MG 1 tablet Once a day Orally 30 day(s) 30 Active Nystatin 532170 UNIT/GM Externally Twice a day 1 application to affected area 12h Jul, 3 Aug, 2017 10 days Active RESULTS No Results PROCEDURES Procedure Date Ordered Result Body Site MEASURE BLOOD OXYGEN LEVEL Aug 10, 2017 INSTRUCTIONS MEDICATIONS ADMINISTERED No Known Medications MEDICAL (GENERAL) HISTORY Type Description Date Medical History type II diabetes Medical History charcoat Medical History depression Medical History Diabetic ulcer on bottom of foot per wound care Surgical History lap angel Surgical History Lt knee scope Surgical History circumscison revision Surgical History Lt foot Hospitalization History surgeries
--- OUTSIDE RECORDS SUMMARY | 2018-06-05 14:39 | XMS REPORT ---
Author Author CLAUDIA ARCHER [facility] [place] Address [address] [place] [address] Care Team Providers Care Cost Report Clerk Name Role Phone CLAUDIA ARCHER Unavailable PROBLEMS Type Condition ICD9-CM Code PBQ76-CV Code Onset Dates Condition Status SNOMED Code Problem Charcot foot due to diabetes mellitus E11.610 Active 13093970 Problem Depression, unspecified depression type F32.9 Active 55222564 Problem Neuropathy involving both lower extremities G57.93 Active 276586041 Problem BMI 40.0-44.9, adult Z68.41 Active 225469401 Problem Type 2 diabetes mellitus with hyperglycemia E11.65 Active 08706366 Problem residential current use of insulin Z79.4 Active 220238830 Problem Essential hypertension I10 Active 71146404 Problem Morbid obesity due to excess calories E66.01 Active 786958770 ALLERGIES No Information ENCOUNTERS Encounter Location Date Diagnosis [facility] [address] [id number] [place] [address] Dec [facility] [id number] [place] [address] November [facility] [id number] [place] [address] November Type 2 diabetes mellitus with hyperglycemia E11.65 ; residential current use of insulin Z79.4 ; Morbid obesity due to excess calories E66.01 ; Charcot foot due to diabetes mellitus E11.610 ; Neuropathy involving both lower extremities G57.93 ; BMI 50.0-59.9, adult Z68.43 ; Depression, unspecified depression type F32.9 and Scrotal swelling N50.89 [facility] [id number] [place] [address] November [facility] [employer] PH[address] [id number] [place] [address] Oct Charcot foot due to diabetes mellitus E11.610 [facility] [place] [address] [id number] [place] [address] Sep Type 2 diabetes mellitus with hyperglycemia E11.65 [facility] [place] [address] [id number] [place] [address] Sep Charcot foot due to diabetes mellitus E11.610 [facility] [place] [address] [id number] [place] [address] Sep [facility] [place] [address] [id number] [place] [address] [facility] [address] [id number] [place] [address] Sep Scrotal swelling N50.89 ; Fungal infection of the groin B35.6 and BMI 50.0-59.9, adult Z68.43 [facility] [place] [address] [id number] [place] [address] Sep Scrotal swelling N50.89 [facility] [place] [address] [id number] [place] [address] Sep Scrotal swelling N50.89 [facility] [place] [address] [id number] [place] [address] 28 Aug Scrotal swelling N50.89 [facility] [place] [address] [id number] [place] [address] 14 Aug Charcot foot due to diabetes mellitus E11.610 [facility] [place] [address] [id number] [place] [address] 09 Aug Type 2 diabetes mellitus with hyperglycemia E11.65 ; 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 [facility] [address] [id number] [place] [address] Aug Scrotal swelling N50.89 and Depression, unspecified depression type F32.9 [facility] [address] [facility] [id number] [place] [address] Jul, [facility] [address] [facility] [id number] [place] [address] Jul, [facility] [address] [id number] [place] [id number] Jul, [facility] [address] [id number] [place] [address] Jul Scrotal swelling N50.89 [facility] [place] [address] [id number] [place] [address] Jul [facility] [place] [address] [id number] [place] [address] Jul Scrotal swelling N50.89 [facility] [place] [address] [id number] [place] [address] Jul Charcot foot due to diabetes mellitus E11.610 [facility] [place] [address] [id number] [place] [address] Jul Depression, unspecified depression type F32.9 and BMI 50.0-59.9, adult Z68.43 [facility] [place] [address] [id number] [place] [address] Jun Depression, unspecified depression type F32.9 ; Charcot foot due to diabetes mellitus E11.610 and BMI 50.0-59.9, adult Z68.43 [facility] [place] [address] [id number] [place] [address] Jun [facility] [place] [address] [id number] [place] [address] May BMI 40.0-44.9, adult Z68.41 ; Type 2 diabetes mellitus with hyperglycemia E11.65 ; Essential hypertension I10 ; Depression, unspecified depression type F32.9 ; Charcot foot due to diabetes mellitus E11.610 and residential current use of insulin Z79.4 [facility] [place] [address] [id number] [place] [address] May [facility] [place] [address] [id number] [place] [address] May [facility] [place] [address] [id number] [place] [address] May [facility] [address] [id number] [place] [address] Apr [facility] [address] [facility] [id number] [place] [address] Apr, [facility] [address] [id number] [place] [address] Apr [facility] [place] [address] [id number] [place] [address] Apr Type 2 diabetes mellitus with hyperglycemia E11.65 and Depression, unspecified depression type F32.9 [facility] [place] [address] [id number] [place] [address] Apr Encounter for immunization Z23 ; Type 2 diabetes mellitus with hyperglycemia E11.65 ; residential current use of insulin Z79.4 ; Charcot foot due to diabetes mellitus E11.610 and Essential hypertension I10 [facility] [place] [address] [id number] [place] [address] Mar Essential hypertension I10 ; Charcot foot due to diabetes mellitus E11.610 and Type 2 diabetes mellitus with hyperglycemia E11.65 [facility] [place] [address] [id number] [place] [address] Mar [facility] [address] [facility] [id number] [place] [address] Feb, [facility] [place] [address] [id number] [place] [address] Feb Type 2 diabetes mellitus with hyperglycemia E11.65 ; Essential hypertension I10 ; residential current use of insulin Z79.4 ; Morbid obesity due to excess calories E66.01 ; Charcot foot due to diabetes mellitus E11.610 and Depression, unspecified depression type F32.9 [facility] [place] [address] [id number] [place] [address] Jan [facility] [place] [address] [id number] [place] [address] Jan [facility] [place] [address] [id number] [place] [address] Jan [place] [address] [facility] [id number] [place] [address] Jan, [facility] [place] [address] [id number] [place] [address] Dec Charcot foot due to diabetes mellitus E11.610 [facility] [place] [address] [id number] [place] [address] November [facility] [place] [address] [id number] [place] [address] November Type 2 diabetes mellitus with hyperglycemia E11.65 ; 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 and Charcot foot due to diabetes mellitus E11.610 [facility] [place] [address] [id number] [place] [address] November Bronchitis J40 [facility] [place] [address] [id number] [place] [address] Oct Cellulitis of right lower extremity L03.115 and Charcot foot due to diabetes mellitus E11.610 [facility] [place] [address] [id number] [place] [address] Sep [facility] [address] [facility] [id number] [place] [address] Sep, [facility] [place] [address] [id number] [place] [address] Sep Bronchitis J40 [facility] [address] [id number] [place] [address] Sep, [facility] [place] [address] [id number] [place] [address] 07 Mar , 2017 Bronchitis J40 [facility] [place] [address] [id number] [place] [address] Sep Type 2 diabetes mellitus with hyperglycemia E11.65 [facility] NGHIA [address] [id number] [place] [address] Sep [place] [address] [facility] [id number] [place] [address] Aug, [facility] N[place] [address] [id number] [place] [address] Aug Type 2 diabetes mellitus with hyperglycemia E11.65 ; Depression, unspecified depression type F32.9 ; Charcot foot due to diabetes mellitus E11.610 and Encounter for immunization Z23 [facility] [place] [address] [id number] [place] [address] Aug [facility] [address] [id number] [place] [address] Jul Type 2 diabetes mellitus with hyperglycemia E11.65 ; residential current use of insulin Z79.4 ; Morbid obesity due to excess calories E66.01 and Charcot foot due to diabetes mellitus E11.610 [facility] [place] [address] [id number] [place] [address] Jun Type 2 diabetes mellitus with hyperglycemia E11.65 ; residential current use of insulin Z79.4 ; Morbid obesity due to excess calories E66.01 ; Charcot foot due to diabetes mellitus E11.610 and Encounter for immunization Z23 [place] [address] [place] [id number] [place] [address] Jun, [place] [address] [id number] [address] Jun, [facility] [place] [address] [id number] [place] [address] Jun Fever in other diseases R50.81 [facility] [place] [address] [id number] [place] [address] May [facility] [place] [address] [id number] [place] [address] May [facility] [place] [address] [id number] [place] [address] May Type 2 diabetes mellitus with hyperglycemia E11.65 [facility] [place] [address] [id number] [place] [address] May Type 2 diabetes mellitus with hyperglycemia E11.65 ; 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
--- OUTSIDE RECORDS SUMMARY | 2018-06-05 14:39 | XMS REPORT ---
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
--- OUTSIDE RECORDS SUMMARY | 2018-06-05 14:39 | XMS REPORT ---
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 Unknown Non Drug Allergy Jun, Unknown SOCIAL HISTORY No smoking Hx information available PLAN OF CARE Activity Details Follow Up 4 Weeks Reason:dm mgmt VITAL SIGNS Height 74 in 2016-06-20 Weight 389.4 lbs 2016-06-20 Temperature 97.9 degrees Fahrenheit 2016-06-20 Heart Rate 96 bpm 2016-06-20 Respiratory Rate 20 2016-06-20 BMI 49.99 kg/m2 2016-06-20 Blood pressure systolic 166 mmHg 2016-06-20 Blood pressure diastolic 84 mmHg 2016-06-20 MEDICATIONS Medication Instructions Dosage Frequency Start Date End Date Duration Status MetFORMIN HCl ER 500 MG Orally 2 times a day 2 tablets 12h 2016 30 days Active Bydureon 2 MG Subcutaneous weekly 2 mg Jun, Active NovoLog 100 UNIT/ML Subcutaneous 3 times a day 50 unit at meals 8h 90 days Active Toujeo SoloStar 300 UNIT/ML Subcutaneous Once a day 75 units 24h 90 days Active Lisinopril 10 mg Orally Once a day as directed 24h Jun, Active Flonase Allergy Relief 50 MCG/ACT Nasally Once a day 1 spray in each nostril 24h Jun, 30 day(s) Active Trintellix 10 mg Orally Once a day 1 tablet 24h Active Percocet 10-325 MG Orally every 4-6 hours as needed 1 tablet as needed Jul, 28 days Active Ibuprofen 200 MG Orally PRN 4 tab Active Atorvastatin Calcium 80 MG Orally Once a day 1/2 tablet 24h May, 90 days Active Multivitamin Men Orally PRN 1 tablet Active RESULTS No Results PROCEDURES Procedure Date Ordered Related Diagnosis Body Site FLUARIX QUAD P-FREE 3 AND UP .50 2015Jun 20, 2016 SINGLE IMMUNIZATION ADMIN Jun 20, 2016 Office Visit, Est Pt., Level 3 Jun 20, 2016 IMMUNIZATIONS Vaccine Route Administration Date Status FLUZONE QUAD 3 AND UP 0.50 2015 IM Intramuscular Jun 20, 2016 Administered
--- OUTSIDE RECORDS SUMMARY | 2018-06-05 14:40 | XMS REPORT ---
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 008811988 Problem Charcot foot due to diabetes mellitus E11.610 Active 12103981 Problem Depression, unspecified depression type F32.9 Active 44280218 ALLERGIES No Known Allergies SOCIAL HISTORY Never Assessed PLAN OF CARE Activity Details Follow Up prn Reason: VITAL SIGNS Height 74 in 2016-09-20 Weight 405.1 lbs 2016-09-20 Temperature 97.9 degrees Fahrenheit 2016-09-20 Heart Rate 88 bpm 2016-09-20 Respiratory Rate 22 2016-09-20 Oximetry 95 % 2016-09-20 BMI 52.01 kg/m2 2016-09-20 Blood pressure systolic 166 mmHg 2016-09-20 Blood pressure diastolic 98 mmHg 2016-09-20 MEDICATIONS Medication Instructions Dosage Frequency Start Date End Date Duration Status NovoLog 100 UNIT/ML Subcutaneous 3 times a day 50 unit at meals 8h 90 days Active Pen [place] 32G X 4 MM subcutaneously 3 times a day as directed 8h Sep, 90 days Active Trintellix 20 mg Orally Once a day 1 tablet 24h Aug, 90 days Active Lisinopril 10 mg Orally Once a day as directed 24h Active Flonase Allergy Relief 50 MCG/ACT Nasally Once a day 1 spray in each nostril 24h Jun, 30 day(s) Active Multivitamin Men Orally PRN 1 tablet Active MetFORMIN HCl ER 500 MG Orally 2 times a day 2 tablets 12h 30 days Active Atorvastatin Calcium 80 MG Orally Once a day 1/2 tablet 24h May, 90 days Active Toujeo SoloStar 300 UNIT/ML Subcutaneous Once a day 75 units 24h 90 days Active Bydureon 2 MG Subcutaneous weekly 2 mg Active Levaquin 500 mg Orally Once a day 1 tablet 24h Sep, Sep, 07 days Active Ibuprofen 200 MG Orally PRN 4 tab Active RESULTS No Results PROCEDURES Procedure Date Ordered Result Body Site MEASURE BLOOD OXYGEN LEVEL September 20, 2016 THER/PROPH/DIAG INJ, SC/IM September 20, 2016 DEXAMETHASONE 4MG/ML (PER 1 MG) September 20, 2016 DEPO MEDROL 40 MG/ML September 20, 2016 IMMUNIZATIONS Vaccine Route Administration Date Status DEXAMETHASONE 4MG/ML (PER 1 MG) IM Intramuscular September 20, 2016 Administered DEPO MEDROL 40 MG/ML IM Intramuscular September 20, 2016 Administered MEDICAL (GENERAL) HISTORY Type Description Date Medical History type II diabetes Medical History charcoat Medical History depression Medical History Diabetic ulcer on bottom of foot per wound care Surgical History lap angel Surgical History Lt knee scope Surgical History circumscison revision Surgical History Lt foot Hospitalization History surgeries
--- OUTSIDE RECORDS SUMMARY | 2018-06-05 14:40 | XMS REPORT ---
Author Author CLAUDIA ARCHER [facility] Address [address] [place] [address] Care Team Providers Care Engraver Steel Plate Name Role Phone CLAUDIA ARCHER Unavailable PROBLEMS Type Condition ICD9-CM Code UZR36-MP Code Onset Dates Condition Status SNOMED Code Problem Charcot foot due to diabetes mellitus E11.610 Active 76493290 Problem Depression, unspecified depression type F32.9 Active 63130057 Problem Neuropathy involving both lower extremities G57.93 Active 085521966 Problem BMI 40.0-44.9, adult Z68.41 Active 988301549 Problem Type 2 diabetes mellitus with hyperglycemia E11.65 Active 88510057 Problem custodial current use of insulin Z79.4 Active 767207896 Problem Essential hypertension I10 Active 08768691 Problem Morbid obesity due to excess calories E66.01 Active 476108652 ALLERGIES No Information ENCOUNTERS Encounter Location Date Diagnosis [facility] [address] [facility] [id number] [place] [address] Dec, [facility] [address] [id number] [place] [address] Dec Charcot foot due to diabetes mellitus E11.610 [facility] [address] [id number] [place] [address] Dec Neuropathy involving both lower extremities G57.93 [facility] [address] [id number] [place] [address] Dec [facility] [address] [id number] [place] [address] November [facility] [address] [id number] [place] [address] November [facility] [address] [id number] [place] [address] November [facility] [place] [address] [id number] [place] [address] November [facility] [place] [address] [id number] [place] [address] November Type 2 diabetes mellitus with hyperglycemia E11.65 ; 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.4 ; Morbid obesity due to excess calories E66.01 ; Charcot foot due to diabetes mellitus E11.610 ; Neuropathy involving both lower extremities G57.93 ; BMI 50.0-59.9, adult Z68.43 ; Depression, unspecified depression type F32.9 and Scrotal swelling N50.89 [facility] [place] [address] [id number] [place] [address] November [facility] [place] [address] [id number] [place] [address] Oct Charcot foot due to diabetes mellitus E11.610 [facility] [place] [address] [id number] [place] [address] Sep Type 2 diabetes mellitus with hyperglycemia E11.65 [facility] [place] [address] [id number] [place] [address] Sep [facility] [place] [address] [id number] [place] [address] Sep [facility] [place] [address] [id number] [place] [address] Sep Charcot foot due to diabetes mellitus E11.610 [facility] [place] [address] [id number] [place] [address] 08 Sep Scrotal swelling N50.89 ; Fungal infection of the groin B35.6 and BMI 50.0-59.9, adult Z68.43 [facility] [place] [address] [id number] [place] [address] 05 Sep Scrotal swelling N50.89 [facility] [place] [address] [id number] [place] [address] Sep Scrotal swelling N50.89 [facility] [place] [address] [id number] [place] [address] Aug Scrotal swelling N50.89 [facility] [place] [address] [id number] [place] [address] 14 Aug Charcot foot due to diabetes mellitus E11.610 [facility] [place] [address] [id number] [place] [address] 09 Aug Type 2 diabetes mellitus with hyperglycemia E11.65 ; custodial current use of insulin Z79.4 ; Morbid obesity due to excess calories E66.01 ; Charcot foot due to diabetes mellitus E11.610 ; Depression, unspecified depression type F32.9 and Essential hypertension I10 [facility] [address] [facility] [id number] [address] Aug, 2017 [facility] [place] [address] [id number] [place] [address] Aug Scrotal swelling N50.89 and Depression, unspecified depression type F32.9 [facility] [address] [id number] [address] Jul, [facility] [address] [facility] [id number] [address] Jul, [facility] [address] [id number] [place] [address] Jul, [facility] [place] [address] [id number] [place] [address] Jul Scrotal swelling N50.89 [facility] [place] [address] [id number] [place] [address] Jul [facility] [place] [address] [id number] [place] [address] Jul Scrotal swelling N50.89 [facility] [place] [address] [id number] [place] [address] Jul Charcot foot due to diabetes mellitus E11.610 [facility] [place] [address] [id number] [place] [address] Jul Depression, unspecified depression type F32.9 and BMI 50.0-59.9, adult Z68.43 [facility] [place] [address] [id number] [place] [address] Jun Depression, unspecified depression type F32.9 ; Charcot foot due to diabetes mellitus E11.610 and BMI 50.0-59.9, adult Z68.43 [facility] [place] [address] [id number] [place] [address] Jun [facility] [place] [address] [id number] [place] [address] May BMI 40.0-44.9, adult Z68.41 ; Type 2 diabetes mellitus with hyperglycemia E11.65 ; Essential hypertension I10 ; Depression, unspecified depression type F32.9 ; Charcot foot due to diabetes mellitus E11.610 and 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.4 [facility] [place] [address] [id number] [place] [address] May [facility] [place] [address] [id number] [place] [address] May [facility] [place] [address] [id number] [place] [address] May [facility] [place] [address] [id number] [place] [address] Apr [facility] [address] [facility] [id number] [place] [address] Apr, [facility] [place] [address] [id number] [place] [address] Apr [facility] [place] [address] [id number] [place] [address] Apr Type 2 diabetes mellitus with hyperglycemia E11.65 and Depression, unspecified depression type F32.9 [facility] [place] [address] [id number] [place] [address] Apr Encounter for immunization Z23 ; Type 2 diabetes mellitus with hyperglycemia E11.65 ; 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.4 ; Charcot foot due to diabetes mellitus E11.610 and Essential hypertension I10 [facility]ITAL[facility]zun PharmaceuticalsK [place] [address] [id number] [place] [address] Mar Essential hypertension I10 ; Charcot foot due to diabetes mellitus E11.610 and Type 2 diabetes mellitus with hyperglycemia E11.65 [facility] [place] [address] [id number] [place] [address] Mar [place] [address] [facility] [id number] [place] [address] Feb, [facility] [place] [address] [id number] [place] [address] Feb Type 2 diabetes mellitus with hyperglycemia E11.65 ; Essential hypertension I10 ; 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.4 ; Morbid obesity due to excess calories E66.01 ; Charcot foot due to diabetes mellitus E11.610 and Depression, unspecified depression type F32.9 [facility] [place] [address] [id number] [place] [address] Jan [facility] [place] [address] [id number] [place] [address] Jan [facility] [place] [address] [id number] [place] [address] Jan [place] [address] [facility] [id number] [place] [address] Jan, [facility]ITALIzun PharmaceuticalsLuz [place] [address] [id number] [place] [address] Dec Charcot foot due to diabetes mellitus E11.610 [facility]ITALIz[facility] PharmaceuticalsK [place] [address] [id number] [place] [address] November [facility]ITALS[facility] [place] [address] [id number] [place] [address] November Type 2 diabetes mellitus with hyperglycemia E11.65 ; custodial current use of insulin Z79.4 and Charcot foot due to diabetes mellitus E11.610 [facility] [place] [address] [id number] [place] [address] November Bronchitis J40 [facility] [place] [address] [id number] [place] [address] Oct Cellulitis of right lower extremity L03.115 and Charcot foot due to diabetes mellitus E11.610 [facility] [place] [address] [id number] [place] [address] Sep [facility] [address] [facility] [id number] [place] [address] Sep, [facility] [place] [address] [id number] [place] [address] Sep Bronchitis J40 [facility] [address] [id number] [place] [address] Sep, [facility] [place] [address] [id number] [place] [address] Sep Bronchitis J40 [facility] [place] [address] [id number] [place] [address] Sep Type 2 diabetes mellitus with hyperglycemia E11.65 [facility] [place] [address] [id number] [place] [address] Sep [facility] [address] [facility] [id number] [place] [address] Aug, [facility] [place] [address] [id number] [place] [address] Aug Type 2 diabetes mellitus with hyperglycemia E11.65 ; Depression, unspecified depression type F32.9 ; Charcot foot due to diabetes mellitus E11.610 and Encounter for immunization Z23 [facility] [place] [address] [id number] [place] [address] Aug [facility] [place] [address] [id number] [place] [address] Jul Type 2 diabetes mellitus with hyperglycemia E11.65 ; 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.4 ; Morbid obesity due to excess calories E66.01 and Charcot foot due to diabetes mellitus E11.610 [facility] [place] [address] [id number] [place] [address] 12 Dec , 2016 Type 2 diabetes mellitus with hyperglycemia E11.65 ; custodial current use of insulin Z79.4 ; Morbid obesity due to excess calories E66.01 ; Charcot foot due to diabetes mellitus E11.610 and Encounter for immunization Z23 [facility] [address] [facility] [id number] [place] [address] Jun, [facility] [address] [facility] [id number] [place] [address] Jun, [facility] [place] [address] [id number] [place] [address] Jun Fever in other diseases R50.81 [facility] [place] [address] [id number] [place] [address] May [facility] [place] [address] [id number] [place] [address] May [facility] [place] [address] [id number] [place] [address] May Type 2 diabetes mellitus with hyperglycemia E11.65 [facility] [place] [address] [id number] [place] [address] May Type 2 diabetes mellitus with hyperglycemia E11.65 ; 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
--- OUTSIDE RECORDS SUMMARY | 2018-06-05 14:40 | XMS REPORT ---
Author Author CLAUD[facility] ARCHER [facility] [place] Address [address] [place] [address] Care Team Providers Care Hvac Technician Residential Name Role Phone CLAUDIA ARCHER Unavailable PROBLEMS Type Condition ICD9-CM Code [id number] Code Onset Dates Condition Status SNOMED Code Problem Type 2 diabetes mellitus with hyperglycemia E11.65 Active 00429698 Problem senior living current use of insulin Z79.4 Active 561170392 Problem Depression, unspecified depression type F32.9 Active 82013280 Problem Morbid obesity due to excess calories E66.01 Active 250666464 Problem Charcot foot due to diabetes mellitus E11.610 Active 53009074 ALLERGIES Unknown Allergies SOCIAL HISTORY No smoking Hx information available PLAN OF CARE VITAL SIGNS MEDICATIONS Unknown Medications RESULTS No Results PROCEDURES No Known procedures IMMUNIZATIONS No Known Immunizations
--- OUTSIDE RECORDS SUMMARY | 2018-06-05 14:40 | XMS REPORT ---
Author Author CLAUDIA ARCHER [employer] Address Unknown Phone Unavailable Care Team Providers Care Train Inspector Name Role Phone CLAUDIA ARCHER CP Unavailable Allergies, Adverse Reactions, Alerts Substance Reaction Event Type N.K.D.A. Info Not Available Non Drug Allergy Problems Problem Type Condition Code Onset Dates Condition Status Assessment Depression, unspecified depression type F32.9 Active Assessment Morbid obesity due to excess calories E66.01 Active Assessment Charcot foot due to diabetes mellitus E11.610 Active Problem [facility]PC current use of insulin Z79.4 Active Problem Morbid obesity due to excess calories E66.01 Active Problem Type 2 diabetes mellitus with hyperglycemia E11.65 Active Assessment Type 2 diabetes mellitus with hyperglycemia E11.65 Active Assessment manager terminal current use of insulin Z79.4 Active Problem Charcot foot due to diabetes mellitus E11.610 Active Problem Depression, unspecified depression type F32.9 Active Medications Medication Code System Code Instructions Start Date End Date Status Dosage Lisinopril [facility] [address]-56 5 mg Orally Once a day 1 tab Percocet [facility] [address]-41 10-325 MG Orally PRN 1 tablet as needed Ibuprofen [facility] [address]-22 200 MG Orally PRN 4 tab Trintellix [facility] [address]-82 10 mg Orally Once a day 1 tablet Toujeo SoloStar [facility] [address]-91 300 UNIT/ML Subcutaneous Once a day 75 units NovoLog [facility] [address]-50 100 UNIT/ML Subcutaneous 3 times a day 50 unit at meals MetFORMIN HCl ER [facility] [address]-11 500 MG Orally 2 times a day May 19, 2016 1 tablet Nesina [facility] [address]-39 25 MG Orally Once a day 1 tablet Procedures Procedure Coding System Code Date No Charge CPT-4 30582 May 19, 2016 DRUG SCREEN NON TLC DEVICES CPT-4 07360 May 19, 2016 MEASURE BLOOD OXYGEN LEVEL CPT-4 56565 May 19, 2016 Office Visit, New Pt., Level 4 CPT-4 85922 May 19, 2016 GLYCATED HEMOGLOBIN TEST CPT-4 05950 May 19, 2016 MICROALBUMIN, SEMIQUANT CPT-4 29701 May 19, 2016 MICROALBUMIN, QUANTITATIVE CPT-4 98816 May 19, 2016 ASSAY OF URINE CREATININE CPT-4 66601 May 19, 2016 Vital Signs Date/Time: May 19, 2016 Cardiac Monitoring Heart Rate 95 bpm Weight 379.9 lbs Height 74 in BMI 48.77 Index Oximetry 98 % Blood Pressure Diastolic 82 mmHg Blood Pressure Systolic 160 mmHg Results Name Result Date Reference Range Unit Abnormality Flag MICROALBUMIN, URINE (IN HOUSE) ----Exp date 20160519 ----Clarity clear 20160519 ----Color yellow 20160519 ----ALB 80mg/L 20160519 ----CRE 100mg/dL 20160519 ----A:C (IN HOUSE) 30-300mg/g 20160519 ----MICROALBUMIN abnormal 20160519 ----Lot # [id number] URINE DRUG SCREEN (IN HOUSE) ----TCA negative 20160519 ----AMPH negative 20160519 ----COCAINE negative 20160519 ----MAMP negative 20160519 ----THC negative 20160519 ----OXY POSITIVE 20160519 ----MTD negative 20160519 ----BAR negative 20160519 ----Lot # [id number] 20160519 ----MDMA negative 20160519 ----Control + 20160519 ----BUP negative 20160519 ----Exp date 20160519 ----PCP negative 20160519 ----OPIATE negative 20160519 ----BENZO negative 20160519 A1C (IN HOUSE) ----A1C IN HOUSE 10.8 [id number] 4.3 - 5.6 % ----Previous A1c none 20160519 ----Lot [id number] 20160519 ----Exp date 20160519 MICROALBUMIN/CREATININE RATIO, URINE ----Microalbumin, Urine 105.1 [id number] Not Estab. ug/mL ----Microalb/Creat Ratio 229.0 [id number] 0.0-30.0 mg/g creat H ----Creatinine, Urine 45.9 20160519 Not Estab. mg/dL Summary Purpose eClinicalWorks Submission
--- OUTSIDE RECORDS SUMMARY | 2018-06-05 14:40 | XMS REPORT ---
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 Active 380646951 Problem Charcot foot due to diabetes mellitus E11.610 Active 61029197 Problem Depression, unspecified depression type F32.9 Active 54104554 ALLERGIES No Known Allergies SOCIAL HISTORY Never Assessed PLAN OF CARE Activity Details Follow Up prn Reason: VITAL SIGNS Height 74 in 2016-11-08 Weight 402.3 lbs 2016-11-08 Temperature 98.3 degrees Fahrenheit 2016-11-08 Heart Rate 100 bpm 2016-11-08 Respiratory Rate 30 2016-11-08 Oximetry 97 % 2016-11-08 BMI 51.65 kg/m2 2016-11-08 Blood pressure systolic 158 mmHg 2016-11-08 Blood pressure diastolic 80 mmHg 2016-11-08 MEDICATIONS Medication Instructions Dosage Frequency Start Date End Date Duration Status Azithromycin 250 MG Orally Once a day 2 tablets on the first day, then 1 tablet daily for 4 days 24h November, November, 5 day(s) Active Trintellix 20 mg Orally Once a day 1 tablet 24h Aug, 90 days Active Multivitamin Men Orally PRN 1 tablet Active Atorvastatin Calcium 80 MG Orally Once a day 1/2 tablet 24h May, 90 days Active NovoLog 100 UNIT/ML Subcutaneous 3 times a day 50 unit at meals 8h 90 days Active Pen Ball 32G X 4 MM subcutaneously 3 times a day as directed 8h Sep, 90 days Active Flonase Allergy Relief 50 MCG/ACT Nasally Once a day 1 spray in each nostril 24h Jun, 30 day(s) Active Promethazine-Codeine 6.25-10 MG/5ML Orally every 6 hrs 5 ml as needed 6h November, November, 07 days Active MetFORMIN HCl ER 500 MG Orally 2 times a day 2 tablets 12h 30 days Active Bydureon 2 MG Subcutaneous weekly 2 mg Active Percocet 10-325 MG Orally every 6 hrs 1 tablet as needed 6h 28 days Active Toujeo SoloStar 300 UNIT/ML Subcutaneous Once a day 75 units 24h 90 days Active Ibuprofen 200 MG Orally PRN 4 tab Active Lisinopril 10 mg Orally Once a day as directed 24h Active Percocet 10-325 MG Orally every 6 hrs prn 1 tablet as needed Active RESULTS No Results PROCEDURES Procedure Date Ordered Result Body Site MEASURE BLOOD OXYGEN LEVEL November 08, 2016 DEPO MEDROL 40 MG/ML November 08, 2016 DEXAMETHASONE 4MG/ML (PER 1 MG) November 08, 2016 THER/PROPH/DIAG INJ, SC/IM November 08, 2016 IMMUNIZATIONS Vaccine Route Administration Date Status DEXAMETHASONE 4MG/ML (PER 1 MG) IM Intramuscular November 08, 2016 Administered DEPO MEDROL 40 MG/ML IM Intramuscular November 08, 2016 Administered MEDICAL (GENERAL) HISTORY Type Description Date Medical History type II diabetes Medical History charcoat Medical History depression Medical History Diabetic ulcer on bottom of foot per wound care Surgical History lap angel Surgical History Lt knee scope Surgical History circumscison revision Surgical History Lt foot Hospitalization History surgeries
--- OUTSIDE RECORDS SUMMARY | 2018-06-05 14:40 | XMS REPORT ---
Author Author [facility]UD[facility]CHER [facility] Address [address] [place] [address] Care Team Providers Care Mailing Specialist Name Role Phone CLAUDIA ARCHER Unavailable PROBLEMS Type Condition ICD9-CM Code [id number] Code Onset Dates Condition Status SNOMED Code Problem Essential hypertension I10 Active 59191422 Problem Morbid obesity due to excess calories E66.01 Active 048812265 Problem Type 2 diabetes mellitus with hyperglycemia E11.65 Active 13598015 Problem buttermaker current use of insulin Z79.4 Active 803718237 Problem Charcot foot due to diabetes mellitus E11.610 Active 33744830 Problem Depression, unspecified depression type F32.9 Active 99857462 ALLERGIES No Information SOCIAL HISTORY Never Assessed [...]
--- OUTSIDE RECORDS SUMMARY | 2018-06-05 14:40 | XMS REPORT ---
Author Author CLAUDIA ARCHER [facility] eClinicalWorks Address Unknown Phone Unavailable Care Team Providers Care Affiliate Manager Name Role Phone CLAUDIA ARCHER CP Unavailable Allergies No Known Allergies Problems Problem Type Condition Code Onset Dates Condition Status Problem USP current use of insulin Z79.4 Active Problem Morbid obesity due to excess calories E66.01 Active Problem Type 2 diabetes mellitus with hyperglycemia E11.65 Active Problem Charcot foot due to diabetes mellitus E11.610 Active Problem Depression, unspecified depression type F32.9 Active Medications No Known Medications Results No Known Results Summary Purpose eClinicalWorks Submission
--- OUTSIDE RECORDS SUMMARY | 2018-06-05 14:40 | XMS REPORT ---
Author Author CLAUDIA ARCHER [facility] eClinicalWorks Address Unknown Phone Unavailable Care Team Providers Care Crop Farmers Name Role Phone CLAUDIA ARCHER CP Unavailable Allergies No Known Allergies Problems Problem Type Condition Code Onset Dates Condition Status Problem [facility] current use of insulin Z79.4 Active Problem Morbid obesity due to excess calories E66.01 Active Problem Type 2 diabetes mellitus with hyperglycemia E11.65 Active Assessment Type 2 diabetes mellitus with hyperglycemia E11.65 Active Problem Charcot foot due to diabetes mellitus E11.610 Active Problem Depression, unspecified depression type F32.9 Active Medications No Known Medications Procedures Procedure Coding System Code Date LIPID PANEL CPT-4 66059 May 20, 2016 COMPREHEN METABOLIC PANEL CPT-4 54892 May 20, 2016 COMPLETE CBC W/AUTO DIFF WBC CPT-4 49109 May 20, 2016 VENIPUNCT, ROUTINE* CPT-4 46210 May 20, 2016 Results Name Result Date Reference Range Unit Abnormality Flag CBC ----Lymphs 26 92517320 % ----Neutrophils 64 32637671 % ----Baso (Absolute) 0.0 [id number] 0.0-0.2 x10E3/uL ----Hemoglobin 14.4 16284786 12.6-17.7 g/dL ----Eos (Absolute) 0.2 97453552 0.0-0.4 x10E3/uL ----Hematocrit 43.0 24900105 37.5-51.0 % ----Monocytes(Absolute) 0.5 02111603 0.1-0.9 x10E3/uL ----MCV 83 23184704 79-97 fL ----Lymphs (Absolute) 2.1 50576870 0.7-3.1 x10E3/uL ----MCH 27.8 93778124 26.6-33.0 pg ----Neutrophils (Absolute) 5.1 15010146 1.4-7.0 x10E3/uL ----MCHC 33.5 20384341 31.5-35.7 g/dL ----Immature Granulocytes 1 96086563 % ----Basos 0 16888183 % ----RDW 13.6 61810327 12.3-15.4 % ----Immature Grans (Abs) 0.1 20160520 0.0-0.1 x10E3/uL ----WBC 7.9 75904597 3.4-10.8 x10E3/uL ----Platelets 162 31189046 150-379 x10E3/uL ----Eos 2 22555477 % ----RBC 5.18 02643713 4.14-5.80 x10E6/uL ----Monocytes 7 46704388 % LIPID PANEL ----LDL Cholesterol Calc 133 81910201 0-99 mg/dL H ----VLDL Cholesterol Dylan 48 59308807 5-40 mg/dL H ----Cholesterol, Total 214 05314382 100-199 mg/dL H ----HDL Cholesterol 33 27275951 >39 mg/dL L ----Triglycerides 240 53696085 0-149 mg/dL H ROUTINE VENIPUNCTURE TSH ----TSH 2.710 40892231 0.450-4.500 uIU/mL CMP ----Potassium, Serum 4.5 40613893 3.5-5.2 mmol/L ----Sodium, Serum 136 54924200 136-144 mmol/L ----BUN/Creatinine Ratio 18 20160520 9-20 ----eGFR If Africn Am 126 00661238 >59 mL/min/1.73 ----eGFR If NonAfricn Am 109 59734858 >59 mL/min/1.73 ----Creatinine, Serum 0.71 74190524 0.76-1.27 mg/dL L ----BUN 13 20160520 6-24 mg/dL ----Glucose, Serum 287 38786940 65-99 mg/dL H ----AST (SGOT) 19 20160520 0-40 IU/L ----Globulin, Total 3.4 19976468 1.5-4.5 g/dL ----ALT (SGPT) 32 40387702 0-44 IU/L ----A/G Ratio 1.2 20160520 1.1-2.5 ----Bilirubin, Total 0.4 20160520 0.0-1.2 mg/dL ----Alkaline Phosphatase, S 68 20160520 39-117 IU/L ----Carbon Dioxide, Total 22 20160520 18-29 mmol/L ----Calcium, Serum 9.0 20160520 8.7-10.2 mg/dL ----Protein, Total, Serum 7.5 20160520 6.0-8.5 g/dL ----Albumin, Serum 4.1 20160520 3.5-5.5 g/dL ----Chloride, Serum 96 20160520 97-106 mmol/L L Summary Purpose eClinicalWorks Submission
--- OUTSIDE RECORDS SUMMARY | 2018-06-05 14:40 | XMS REPORT ---
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
--- OUTSIDE RECORDS SUMMARY | 2018-06-05 14:41 | XMS REPORT ---
Author Author CLAUDIA ARCHER [facility] Address [address] [place] [address] Care Team Providers Care Bail Bond Agent Name Role Phone CLAUDIA ARCHER Unavailable PROBLEMS Type Condition ICD9-CM Code ORJ06-GF Code Onset Dates Condition Status SNOMED Code Problem Charcot foot due to diabetes mellitus E11.610 Active 68917561 Problem Depression, unspecified depression type F32.9 Active 97022821 Problem Neuropathy involving both lower extremities G57.93 Active 369273514 Problem BMI 40.0-44.9, adult Z68.41 Active 179717647 Problem Type 2 diabetes mellitus with hyperglycemia E11.65 Active 22969012 Problem USP current use of insulin Z79.4 Active 750546388 Problem Essential hypertension I10 Active 98622500 Problem Morbid obesity due to excess calories E66.01 Active 555385604 ALLERGIES No Information ENCOUNTERS Encounter Location Date Diagnosis [facility] [address] [facility] [id number] [place] [address] Dec, [facility] [address] [id number] [place] [address] Dec Charcot foot due to diabetes mellitus E11.610 [facility] [address] [id number] [place] [address] Dec Neuropathy involving both lower extremities G57.93 [facility] [address] [id number] [place] [address] Dec [facility] [address] [id number] [place] [address] November [facility] [address] [id number] [place] [address] November [facility] [address] [id number] [place] [address] November [facility] [place] [address] [id number] [place] [address] November [facility] [place] [address] [id number] [place] [address] November Type 2 diabetes mellitus with hyperglycemia E11.65 ; 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 ; Morbid obesity due to excess calories E66.01 ; Charcot foot due to diabetes mellitus E11.610 ; Neuropathy involving both lower extremities G57.93 ; BMI 50.0-59.9, adult Z68.43 ; Depression, unspecified depression type F32.9 and Scrotal swelling N50.89 [facility] [place] [address] [id number] [place] [address] November [facility] [place] [address] [id number] [place] [address] Oct Charcot foot due to diabetes mellitus E11.610 [facility] [place] [address] [id number] [place] [address] Sep Type 2 diabetes mellitus with hyperglycemia E11.65 [facility] [place] [address] [id number] [place] [address] Sep Charcot foot due to diabetes mellitus E11.610 [facility] [place] [address] [id number] [place] [address] Sep [facility] [place] [address] [id number] [place] [address] Sep [facility] [place] [address] [id number] [place] [address] Sep Scrotal swelling N50.89 ; Fungal infection of the groin B35.6 and BMI 50.0-59.9, adult Z68.43 [facility] [place] [address] [id number] [place] [address] 05 Sep Scrotal swelling N50.89 [facility] [place] [address] [id number] [place] [address] Sep Scrotal swelling N50.89 [facility] [place] [address] [id number] [place] [address] Aug Scrotal swelling N50.89 [facility] [place] [address] [id number] [place] [address] 14 Aug Charcot foot due to diabetes mellitus E11.610 [facility] [place] [address] [id number] [place] [address] 09 Aug Type 2 diabetes mellitus with hyperglycemia E11.65 ; USP current use of insulin Z79.4 ; Morbid obesity due to excess calories E66.01 ; Charcot foot due to diabetes mellitus E11.610 ; Depression, unspecified depression type F32.9 and Essential hypertension I10 [facility] [address] [facility] [id number] [address] Aug, 2017 [facility] [place] [address] [id number] [place] [address] Aug Scrotal swelling N50.89 and Depression, unspecified depression type F32.9 [facility] [address] [id number] [address] Jul, [facility] [address] [facility] [id number], [place] [address] Jul, [facility] GARCIA[address] [id number] [place] [id number] Jul, [facility] [place] [address] [id number] [place] [address] Jul Scrotal swelling N50.89 [facility] [place] [address] [id number] [place] [address] Jul [facility] [place] [address] [id number] [place] [address] Jul Scrotal swelling N50.89 [facility] [place] [address] [id number] [place] [address] Jul Charcot foot due to diabetes mellitus E11.610 [facility] [place] [address] [id number] [place] [address] Jul Depression, unspecified depression type F32.9 and BMI 50.0-59.9, adult Z68.43 [facility] [place] [address] [id number] [place] [address] Jun Depression, unspecified depression type F32.9 ; Charcot foot due to diabetes mellitus E11.610 and BMI 50.0-59.9, adult Z68.43 [facility] [place] [address] [id number] [place] [address] Jun [facility] [place] [address] [id number] [place] [address] May BMI 40.0-44.9, adult Z68.41 ; Type 2 diabetes mellitus with hyperglycemia E11.65 ; Essential hypertension I10 ; Depression, unspecified depression type F32.9 ; Charcot foot due to diabetes mellitus E11.610 and 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 [facility] [place] [address] [id number] [place] [address] May [facility] [place] [address] [id number] [place] [address] May [facility] [place] [address] [id number] [place] [address] May [facility] [place] [address] [id number] [place] [address] Apr [facility] [address] [facility] [id number] [place] [address] Apr, [facility] [place] [address] [id number] [place] [address] Apr [facility] [place] [address] [id number] [place] [address] Apr Type 2 diabetes mellitus with hyperglycemia E11.65 and Depression, unspecified depression type F32.9 [facility] AGRAAWL [address] [id number] [place] [address] Apr Encounter for immunization Z23 ; Type 2 diabetes mellitus with hyperglycemia E11.65 ; 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 ; Charcot foot due to diabetes mellitus E11.610 and Essential hypertension I10 [facility] [place] [address] [id number] [place] [address] Mar Essential hypertension I10 ; Charcot foot due to diabetes mellitus E11.610 and Type 2 diabetes mellitus with hyperglycemia E11.65 [facility] [place] [address] [id number] [place] [address] Mar [place] [address] [facility] [id number] [place] [address] Feb, [facility] [place] [address] [id number] [place] [address] Feb Type 2 diabetes mellitus with hyperglycemia E11.65 ; Essential hypertension I10 ; 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 ; Morbid obesity due to excess calories E66.01 ; Charcot foot due to diabetes mellitus E11.610 and Depression, unspecified depression type F32.9 [facility] [place] [address] [id number] [place] [address] Jan [facility] [place] [address] [id number] [place] [address] Jan [facility] [place] [address] [id number] [place] [address] Jan [place] [address] [facility] [id number] [place] [address] Jan, [facility] [place] [address] [id number] [place] [address] Dec Charcot foot due to diabetes mellitus E11.610 [facility] [place] [address] [id number] [place] [address] November [facility] [place] [address] [id number] [place] [address] November Type 2 diabetes mellitus with hyperglycemia E11.65 ; USP current use of insulin Z79.4 and Charcot foot due to diabetes mellitus E11.610 [facility] [place] [address] [id number] [place] [address] November Bronchitis J40 [facility] [place] [address] [id number] [place] [address] Oct Cellulitis of right lower extremity L03.115 and Charcot foot due to diabetes mellitus E11.610 [facility] [place] [address] [id number] [place] [address] Sep [facility] [address] [facility] [id number] [place] [address] Sep, [facility] [place] [address] [id number] [place] [address] Sep Bronchitis J40 [facility] [address] [id number] [place] [address] Sep, [facility] [place] [address] [id number] [place] [address] Sep Bronchitis J40 [facility] [place] [address] [id number] [place] [address] Sep Type 2 diabetes mellitus with hyperglycemia E11.65 [facility] [place] [address] [id number] [place] [address] Sep [facility] [address] [facility] [id number] [place] [address] Aug, [facility] [place] [address] [id number] [place] [address] Aug Type 2 diabetes mellitus with hyperglycemia E11.65 ; Depression, unspecified depression type F32.9 ; Charcot foot due to diabetes mellitus E11.610 and Encounter for immunization Z23 [facility] [place] [address] [id number] [place] [address] Aug [facility] [place] [address] [id number] [place] [address] Jul Type 2 diabetes mellitus with hyperglycemia E11.65 ; 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 ; Morbid obesity due to excess calories E66.01 and Charcot foot due to diabetes mellitus E11.610 [facility] [place] [address] [id number] [place] [address] 12 Dec , 2016 Type 2 diabetes mellitus with hyperglycemia E11.65 ; USP current use of insulin Z79.4 ; Morbid obesity due to excess calories E66.01 ; Charcot foot due to diabetes mellitus E11.610 and Encounter for immunization Z23 [facility] [address] [facility] [id number] [place] [address] Jun, [facility] [address] [facility] [id number] [place] [address] Jun, [facility] [place] [address] [id number] [place] [address] Jun Fever in other diseases R50.81 [facility] [place] [address] [id number] [place] [address] May [facility] [place] [address] [id number] [place] [address] May [facility] [place] [address] [id number] [place] [address] May Type 2 diabetes mellitus with hyperglycemia E11.65 [facility] [place] [address] [id number] [place] [address] May Type 2 diabetes mellitus with hyperglycemia E11.65 ; 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
--- OUTSIDE RECORDS SUMMARY | 2018-06-05 14:41 | XMS REPORT ---
Author Author CLAUDIA ARCHER [facility] Address [address] [place] [address] Care Team Providers Care Wire Sawyer Name Role Phone CLAUDIA ARCHER Unavailable PROBLEMS Type Condition ICD9-CM Code AWP09-PN Code Onset Dates Condition Status SNOMED Code Problem Charcot foot due to diabetes mellitus E11.610 Active 89709269 Problem Depression, unspecified depression type F32.9 Active 33834728 Problem Neuropathy involving both lower extremities G57.93 Active 381605326 Problem BMI 40.0-44.9, adult Z68.41 Active 429467812 Problem Type 2 diabetes mellitus with hyperglycemia E11.65 Active 21579907 Problem detention current use of insulin Z79.4 Active 971466494 Problem Essential hypertension I10 Active 75520757 Problem Morbid obesity due to excess calories E66.01 Active 974800476 ALLERGIES No Information ENCOUNTERS Encounter Location Date Diagnosis [facility] [address] [facility] [id number] [place] [address] Dec, [facility] [address] [id number] [place] [address] Dec Charcot foot due to diabetes mellitus E11.610 [facility] [address] [id number] [place] [address] Dec Neuropathy involving both lower extremities G57.93 [facility] [address] [id number] [place] [address] Dec [facility] [address] [id number] [place] [address] November [facility] [address] [id number] [place] [address] November [facility] [address] [id number] [place] [address] November [facility] [place] [address] [id number] [place] [address] November [facility] [place] [address] [id number] [place] [address] November Type 2 diabetes mellitus with hyperglycemia E11.65 ; technician terminal and repeater current use of insulin Z79.4 ; Morbid obesity due to excess calories E66.01 ; Charcot foot due to diabetes mellitus E11.610 ; Neuropathy involving both lower extremities G57.93 ; BMI 50.0-59.9, adult Z68.43 ; Depression, unspecified depression type F32.9 and Scrotal swelling N50.89 [facility] [place] [address] [id number] [place] [address] November [facility] [place] [address] [id number] [place] [address] Oct Charcot foot due to diabetes mellitus E11.610 [facility] [place] [address] [id number] [place] [address] Sep Type 2 diabetes mellitus with hyperglycemia E11.65 [facility] [place] [address] [id number] [place] [address] Sep Charcot foot due to diabetes mellitus E11.610 [facility] [place] [address] [id number] [place] [address] Sep [facility] [place] [address] [id number] [place] [address] Sep [facility] [place] [address] [id number] [place] [address] Sep Scrotal swelling N50.89 ; Fungal infection of the groin B35.6 and BMI 50.0-59.9, adult Z68.43 [facility] [place] [address] [id number] [place] [address] 05 Sep Scrotal swelling N50.89 [facility] [place] [address] [id number] [place] [address] Sep Scrotal swelling N50.89 [facility] [place] [address] [id number] [place] [address] Aug Scrotal swelling N50.89 [facility] [place] [address] [id number] [place] [address] 14 Aug Charcot foot due to diabetes mellitus E11.610 [facility] [place] [address] [id number] [place] [address] 09 Aug Type 2 diabetes mellitus with hyperglycemia E11.65 ; detention current use of insulin Z79.4 ; Morbid obesity due to excess calories E66.01 ; Charcot foot due to diabetes mellitus E11.610 ; Depression, unspecified depression type F32.9 and Essential hypertension I10 [facility] [address] [facility] [id number], [place] [address] 07 Aug, 2017 [facility] [address] [id number] [place] [address] Aug Scrotal swelling N50.89 and Depression, unspecified depression type F32.9 [facility] [address] [id number] [address] Jul, [facility] [address] [facility] [id number], [place] [address] Jul, [facility] [id number] [place] [address] Jul, [facility] [place] [address] [id number] [place] [address] Jul Scrotal swelling N50.89 [facility] [place] [address] [id number] [place] [address] Jul [facility] [place] [address] [id number] [place] [address] Jul Scrotal swelling N50.89 [facility] [place] [address] [id number] [place] [address] Jul Charcot foot due to diabetes mellitus E11.610 [facility] [place] [address] [id number] [place] [address] Jul Depression, unspecified depression type F32.9 and BMI 50.0-59.9, adult Z68.43 [facility] [place] [address] [id number] [place] [address] Jun Depression, unspecified depression type F32.9 ; Charcot foot due to diabetes mellitus E11.610 and BMI 50.0-59.9, adult Z68.43 [facility] [place] [address] [id number] [place] [address] Jun [facility] [place] [address] [id number] [place] [address] May BMI 40.0-44.9, adult Z68.41 ; Type 2 diabetes mellitus with hyperglycemia E11.65 ; Essential hypertension I10 ; Depression, unspecified depression type F32.9 ; Charcot foot due to diabetes mellitus E11.610 and technician terminal and repeater current use of insulin Z79.4 [facility] [place] [address] [id number] [place] [address] May [facility] [place] [address] [id number] [place] [address] May [facility] [place] [address] [id number] [place] [address] May [facility] [place] [address] [id number] [place] [address] Apr [facility] [address] [facility] [id number] [place] [address] Apr, [facility] [place] [address] [id number] [place] [address] Apr [facility] [place] [address] [id number] [place] [address] Apr Type 2 diabetes mellitus with hyperglycemia E11.65 and Depression, unspecified depression type F32.9 [facility] [place] [address] [id number] [place] [address] Apr Encounter for immunization Z23 ; Type 2 diabetes mellitus with hyperglycemia E11.65 ; technician terminal and repeater current use of insulin Z79.4 ; Charcot foot due to diabetes mellitus E11.610 and Essential hypertension I10 [facility] [place] [address] [id number] [place] [address] Mar Essential hypertension I10 ; Charcot foot due to diabetes mellitus E11.610 and Type 2 diabetes mellitus with hyperglycemia E11.65 [facility] [place] [address] [id number] [place] [address] Mar [place] [address] [facility] [id number] [place] [address] Feb, [facility] [place] [address] [id number] [place] [address] Feb Type 2 diabetes mellitus with hyperglycemia E11.65 ; Essential hypertension I10 ; technician terminal and repeater current use of insulin Z79.4 ; Morbid obesity due to excess calories E66.01 ; Charcot foot due to diabetes mellitus E11.610 and Depression, unspecified depression type F32.9 [facility] [place] [address] [id number] [place] [address] Jan [facility] [place] [address] [id number] [place] [address] Jan [facility] [place] [address] [id number] [place] [address] Jan [place] [address] [facility] [id number] [place] [address] Jan, [facility] [place] [address] [id number] [place] [address] Dec Charcot foot due to diabetes mellitus E11.610 [facility] [place] [address] [id number] [place] [address] November [facility] [place] [address] [id number] [place] [address] November Type 2 diabetes mellitus with hyperglycemia E11.65 ; detention current use of insulin Z79.4 and Charcot foot due to diabetes mellitus E11.610 [facility] [place] [address] [id number] [place] [address] November Bronchitis J40 [facility] [place] [address] [id number] [place] [address] Oct Cellulitis of right lower extremity L03.115 and Charcot foot due to diabetes mellitus E11.610 [facility] [address] [id number] [place] [address] Sep [facility] [address] [facility] [id number] [place] [address] Sep, [facility] [address] [id number] [place] [address] Sep Bronchitis J40 [facility] [address] [id number] [place] [address] Sep, [facility] [place] [address] [id number] [place] [address] Sep Bronchitis J40 [facility] [address] [id number] [place] [address] Sep Type 2 diabetes mellitus with hyperglycemia E11.65 [facility] [place] [address] [id number] [place] [address] Sep [facility] [address] [facility] [id number] [place] [address] Aug, [facility] [address] [id number] [place] [address] Aug Type 2 diabetes mellitus with hyperglycemia E11.65 ; Depression, unspecified depression type F32.9 ; Charcot foot due to diabetes mellitus E11.610 and Encounter for immunization Z23 [facility] [address] [id number] [place] [address] Aug [facility] [place] [address] [id number] [place] [address] Jul Type 2 diabetes mellitus with hyperglycemia E11.65 ; technician terminal and repeater current use of insulin Z79.4 ; Morbid obesity due to excess calories E66.01 and Charcot foot due to diabetes mellitus E11.610 [facility] [place] [address] [id number] [place] [address] 12 Dec , 2016 Type 2 diabetes mellitus with hyperglycemia E11.65 ; detention current use of insulin Z79.4 ; Morbid obesity due to excess calories E66.01 ; Charcot foot due to diabetes mellitus E11.610 and Encounter for immunization Z23 [facility] [address] [facility] [id number] [place] [address] Jun, [facility] [address] [facility] [id number] [place] [address] Jun, [facility] [place] [address] [id number] [place] [address] Jun Fever in other diseases R50.81 [facility] [place] [address] [id number] [place] [address] May [facility] [place] [address] [id number] [place] [address] May [facility] [place] [address] [id number] [place] [address] May Type 2 diabetes mellitus with hyperglycemia E11.65 [facility] [place] [address] [id number] [place] [address] May Type 2 diabetes mellitus with hyperglycemia E11.65 ; technician terminal and repeater current use of insulin Z79.4 ; Morbid obesity due to excess calories E66.01 ; Charcot foot due to diabetes mellitus E11.610 and Depression, unspecified depression type F32.9 IMMUNIZATIONS No Known Immunizations SOCIAL HISTORY Never Assessed REASON FOR VISIT pals arrived PLAN OF CARE VITAL SIGNS MEDICATIONS [...]
--- OUTSIDE RECORDS SUMMARY | 2018-06-05 14:41 | XMS REPORT ---
Author Author CLAUDIA ARCHER [facility] Address [address] [place] [address] Care Team Providers Care Audio Technician Name Role Phone CLAUDIA ARCHER Unavailable PROBLEMS Type Condition ICD9-CM Code WDC32-TE Code Onset Dates Condition Status SNOMED Code Problem Essential hypertension I10 Active 39079695 Problem Morbid obesity due to excess calories E66.01 Active 566867461 Problem Type 2 diabetes mellitus with hyperglycemia E11.65 Active 57900884 Problem watermelon inspector current use of insulin Z79.4 Active 900591971 Problem Charcot foot due to diabetes mellitus E11.610 Active 66198800 Problem Depression, unspecified depression type F32.9 Active 19278599 ALLERGIES Substance Reaction Event Type Date Status N.K.D.A. Unknown Non Drug Allergy Jul, Unknown SOCIAL HISTORY No smoking Hx information available PLAN OF CARE Activity Details Follow Up 4 Weeks Reason:f/u diabetes VITAL SIGNS Height 74 in 2016-07-19 Weight 398.2 lbs 2016-07-19 Temperature 97.8 degrees Fahrenheit 2016-07-19 Heart Rate 94 bpm 2016-07-19 Respiratory Rate 20 2016-07-19 BMI 51.12 kg/m2 2016-07-19 Blood pressure systolic 142 mmHg 2016-07-19 Blood pressure diastolic 80 mmHg 2016-07-19 MEDICATIONS Medication Instructions Dosage Frequency Start Date End Date Duration Status Toujeo SoloStar 300 UNIT/ML Subcutaneous Once a day 75 units 24h 90 days Active Trintellix 10 mg Orally Once a day 1 tablet 24h Active NovoLog 100 UNIT/ML Subcutaneous 3 times a day 50 unit at meals 8h 90 days Active Atorvastatin Calcium 80 MG Orally Once a day 1/2 tablet 24h 14 May, 2016 90 days Active Flonase Allergy Relief 50 MCG/ACT Nasally Once a day 1 spray in each nostril 24h 12 Jun, 2016 30 day(s) Active MetFORMIN HCl ER 500 MG Orally 2 times a day 2 tablets 12h 30 days Active Bydureon 2 MG Subcutaneous weekly 2 mg Active Ibuprofen 200 MG Orally PRN 4 tab Active Lisinopril 10 mg Orally Once a day as directed 24h Active Multivitamin Men Orally PRN 1 tablet Active RESULTS No Results PROCEDURES Procedure Date Ordered Related Diagnosis Body Site Office Visit, Est Pt., Level 3 Jul 19, 2016 IMMUNIZATIONS No Known Immunizations
--- OUTSIDE RECORDS SUMMARY | 2018-06-05 14:41 | XMS REPORT ---
Author Author CLAUDIA RACHER [facility] Address [address] [place] [address] Care Team Providers Care Teaching Specialists Name Role Phone CLAUDIA ARCHER Unavailable PROBLEMS Type Condition ICD9-CM Code GTN02-RC Code Onset Dates Condition Status SNOMED Code Problem Charcot foot due to diabetes mellitus E11.610 Active 52829561 Problem Depression, unspecified depression type F32.9 Active 25212748 Problem Neuropathy involving both lower extremities G57.93 Active 820116036 Problem BMI 40.0-44.9, adult Z68.41 Active 483752411 Problem Type 2 diabetes mellitus with hyperglycemia E11.65 Active 49101526 Problem alf current use of insulin Z79.4 Active 944261961 Problem Essential hypertension I10 Active 39389307 Problem Morbid obesity due to excess calories E66.01 Active [id number] ALLERGIES No Information ENCOUNTERS Encounter Location Date Diagnosis [facility] [address] [facility] [id number] [place] [address] Dec, [facility] [address] [id number] [place] [address] Dec Charcot foot due to diabetes mellitus E11.610 [facility] [address] [id number] [place] [address] Dec Neuropathy involving both lower extremities G57.93 [facility] [address] [id number] [place] [address] Dec [facility] [address] [id number] [place] [address] November [facility] [address] [id number] [place] [address] November [facility] [address] [id number] [place] [address] November [facility] [place] [address] [id number] [place] [address] November [facility] [place] [address] [id number] [place] [address] November Type 2 diabetes mellitus with hyperglycemia E11.65 ; salvage determiner current use of insulin Z79.4 ; Morbid obesity due to excess calories E66.01 ; Charcot foot due to diabetes mellitus E11.610 ; Neuropathy involving both lower extremities G57.93 ; BMI 50.0-59.9, adult Z68.43 ; Depression, unspecified depression type F32.9 and Scrotal swelling N50.89 [facility] [place] [address] [id number] [place] [address] November [facility] [place] [address] [id number] [place] [address] Oct Charcot foot due to diabetes mellitus E11.610 [facility] [place] [address] [id number] [place] [address] Sep Type 2 diabetes mellitus with hyperglycemia E11.65 [facility] [place] [address] [id number] [place] [address] Sep Charcot foot due to diabetes mellitus E11.610 [facility] [place] [address] [id number] [place] [address] Sep [facility] [place] [address] [id number] [place] [address] Sep [facility] [place] [address] [id number] [place] [address] Sep Scrotal swelling N50.89 ; Fungal infection of the groin B35.6 and BMI 50.0-59.9, adult Z68.43 [facility] [place] [address] [id number] [place] [address] 05 Sep Scrotal swelling N50.89 [facility] [place] [address] [id number] [place] [address] Sep Scrotal swelling N50.89 [facility] [place] [address] [id number] [place] [address] Aug Scrotal swelling N50.89 [facility] [address] [id number] [place] [address] 14 Aug Charcot foot due to diabetes mellitus E11.610 [facility] [place] [address] [id number] [place] [address] 09 Aug Type 2 diabetes mellitus with hyperglycemia E11.65 ; alf current use of insulin Z79.4 ; Morbid obesity due to excess calories E66.01 ; Charcot foot due to diabetes mellitus E11.610 ; Depression, unspecified depression type F32.9 and Essential hypertension I10 [facility] [address] [facility] [id number] [address] 07 Aug, 2017 [facility] [place] [address] [id number] [place] [address] Aug Scrotal swelling N50.89 and Depression, unspecified depression type F32.9 [facility] [address] [id number] [address] Jul, [facility] [address] [facility] [id number] [address] Jul, [facility] [address] [id number] [place] [id number] Jul, [facility] [place] [address] [id number] [place] [address] Jul Scrotal swelling N50.89 [facility] [place] [address] [id number] [place] [address] Jul [facility] [place] [address] [id number] [place] [address] Jul Scrotal swelling N50.89 [facility] [place] [address] [id number] [place] [address] Jul Charcot foot due to diabetes mellitus E11.610 [facility] [place] [address] [id number] [place] [address] Jul Depression, unspecified depression type F32.9 and BMI 50.0-59.9, adult Z68.43 [facility] [place] [address] [id number] [place] [address] Jun Depression, unspecified depression type F32.9 ; Charcot foot due to diabetes mellitus E11.610 and BMI 50.0-59.9, adult Z68.43 [facility] [place] [address] [id number] [place] [address] Jun [facility] [place] [address] [id number] [place] [address] May BMI 40.0-44.9, adult Z68.41 ; Type 2 diabetes mellitus with hyperglycemia E11.65 ; Essential hypertension I10 ; Depression, unspecified depression type F32.9 ; Charcot foot due to diabetes mellitus E11.610 and salvage determiner current use of insulin Z79.4 [facility] [place] [address] [id number] [place] [address] May [facility] [place] [address] [id number] [place] [address] May [facility] [place] [address] [id number] [place] [address] May [facility] [place] [address] [id number] [place] [address] Apr [facility] [address] [facility] [id number] [place] [address] Apr, [facility] [place] [address] [id number] [place] [address] Apr [facility] [place] [address] [id number] [place] [address] Apr Type 2 diabetes mellitus with hyperglycemia E11.65 and Depression, unspecified depression type F32.9 [facility] [place] [address] [id number] [place] [address] Apr Encounter for immunization Z23 ; Type 2 diabetes mellitus with hyperglycemia E11.65 ; salvage determiner current use of insulin Z79.4 ; Charcot foot due to diabetes mellitus E11.610 and Essential hypertension I10 [facility] [place] [address] [id number] [place] [address] Mar Essential hypertension I10 ; Charcot foot due to diabetes mellitus E11.610 and Type 2 diabetes mellitus with hyperglycemia E11.65 [facility] [place] [address] [id number] [place] [address] Mar [place] [address] [facility] [id number] [place] [address] Feb, [facility] [place] [address] [id number] [place] [address] Feb Type 2 diabetes mellitus with hyperglycemia E11.65 ; Essential hypertension I10 ; salvage determiner current use of insulin Z79.4 ; Morbid obesity due to excess calories E66.01 ; Charcot foot due to diabetes mellitus E11.610 and Depression, unspecified depression type F32.9 [facility] [place] [address] [id number] [place] [address] Jan [facility] [place] [address] [id number] [place] [address] Jan [facility] [place] [address] [id number] [place] [address] Jan [place] [address] [facility] [id number] [place] [address] Jan, [facility]TypesafeL[facility] [place] [address] [id number] [place] [address] Dec Charcot foot due to diabetes mellitus E11.610 [facility] [place] [address] [id number] [place] [address] November [facility] [place] [address] [id number] [place] [address] November Type 2 diabetes mellitus with hyperglycemia E11.65 ; alf current use of insulin Z79.4 and Charcot foot due to diabetes mellitus E11.610 [facility] [place] [address] [id number] [place] [address] November Bronchitis J40 [facility] [place] [address] [id number] [place] [address] Oct Cellulitis of right lower extremity L03.115 and Charcot foot due to diabetes mellitus E11.610 [facility] [place] [address] [id number] [place] [address] Sep [facility] [address] [facility] [id number] [place] [address] Sep, [facility] [place] [address] [id number] [place] [address] Sep Bronchitis J40 [facility] [address] [id number] [place] [id number] Sep, [facility] [place] [address] [id number] [place] [address] Sep Bronchitis J40 [facility] [place] [address] [id number] [place] [address] Sep Type 2 diabetes mellitus with hyperglycemia E11.65 [facility] [place] [address] [id number] [place] [address] Sep [facility] [address] [facility] [id number] [place] [address] Aug, [facility] [place] [address] [id number] [place] [address] Aug Type 2 diabetes mellitus with hyperglycemia E11.65 ; Depression, unspecified depression type F32.9 ; Charcot foot due to diabetes mellitus E11.610 and Encounter for immunization Z23 [facility] [place] [address] [id number] [place] [address] Aug [facility] [place] [address] [id number] [place] [address] Jul Type 2 diabetes mellitus with hyperglycemia E11.65 ; salvage determiner current use of insulin Z79.4 ; Morbid obesity due to excess calories E66.01 and Charcot foot due to diabetes mellitus E11.610 [facility] [place] [address] [id number] [place] [address] 12 Dec , 2016 Type 2 diabetes mellitus with hyperglycemia E11.65 ; alf current use of insulin Z79.4 ; Morbid obesity due to excess calories E66.01 ; Charcot foot due to diabetes mellitus E11.610 and Encounter for immunization Z23 [facility] [address] [facility] [id number] [place] [address] Jun, [facility] [address] [facility] [id number] [place] [address] Jun, [facility] [place] [address] [id number] [place] [address] Jun Fever in other diseases R50.81 [facility] [place] [address] [id number] [place] [address] May [facility] [place] [address] [id number] [place] [address] May [facility] [place] [address] [id number] [place] [address] May Type 2 diabetes mellitus with hyperglycemia E11.65 [facility] [place] [address] [id number] [place] [address] May Type 2 diabetes mellitus with hyperglycemia E11.65 ; salvage determiner current use of insulin Z79.4 ; Morbid obesity due to excess calories E66.01 ; Charcot foot due to diabetes mellitus E11.610 and Depression, unspecified depression type F32.9 IMMUNIZATIONS No Known Immunizations SOCIAL HISTORY Never Assessed REASON FOR VISIT appt PLAN OF CARE VITAL SIGNS MEDICATIONS Unknown [...]
--- OUTSIDE RECORDS SUMMARY | 2018-06-05 14:42 | XMS REPORT ---
Author Author CLAUDIA ARCHER [facility] Address [address] [place] [address] Care Team Providers Care Millinery Worker Name Role Phone CLAUDIA ARCHER Unavailable PROBLEMS Type Condition ICD9-CM Code YRH45-GR Code Onset Dates Condition Status SNOMED Code Problem Charcot foot due to diabetes mellitus E11.610 Active 18751938 Problem Depression, unspecified depression type F32.9 Active 43355924 Problem Neuropathy involving both lower extremities G57.93 Active 954343446 Problem BMI 40.0-44.9, adult Z68.41 Active 171537424 Problem Type 2 diabetes mellitus with hyperglycemia E11.65 Active 90011770 Problem care home current use of insulin Z79.4 Active 429497654 Problem Essential hypertension I10 Active 69080148 Problem Morbid obesity due to excess calories E66.01 Active 541798953 ALLERGIES No Information ENCOUNTERS Encounter Location Date Diagnosis [facility] [address] [facility] [id number] [place] [address] Dec, [facility] [address] [id number] [place] [address] Dec Charcot foot due to diabetes mellitus E11.610 [facility] [address] [id number] [place] [address] Dec Neuropathy involving both lower extremities G57.93 [facility] [address] [id number] [place] [address] Dec [facility] [address] [id number] [place] [address] November [facility] [address] [id number] [place] [address] November [facility] [address] [id number] [place] [address] November [facility] [place] [address] [id number] [place] [address] November [facility] [place] [address] [id number] [place] [address] November Type 2 diabetes mellitus with hyperglycemia E11.65 ; 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.4 ; Morbid obesity due to excess calories E66.01 ; Charcot foot due to diabetes mellitus E11.610 ; Neuropathy involving both lower extremities G57.93 ; BMI 50.0-59.9, adult Z68.43 ; Depression, unspecified depression type F32.9 and Scrotal swelling N50.89 [facility] [place] [address] [id number] [place] [address] November [facility] [place] [address] [id number] [place] [address] Oct Charcot foot due to diabetes mellitus E11.610 [facility] [place] [address] [id number] [place] [address] Sep Type 2 diabetes mellitus with hyperglycemia E11.65 [facility] [place] [address] [id number] [place] [address] Sep Charcot foot due to diabetes mellitus E11.610 [facility] [place] [address] [id number] [place] [address] Sep [facility] [place] [address] [id number] [place] [address] Sep [facility] [place] [address] [id number] [place] [address] Sep Scrotal swelling N50.89 ; Fungal infection of the groin B35.6 and BMI 50.0-59.9, adult Z68.43 [facility] [place] [address] [id number] [place] [address] 05 Sep Scrotal swelling N50.89 [facility] [place] [address] [id number] [place] [address] Sep Scrotal swelling N50.89 [facility] [place] [address] [id number] [place] [address] Aug Scrotal swelling N50.89 [facility] [place] [address] [id number] [place] [address] 14 Aug Charcot foot due to diabetes mellitus E11.610 [facility] [place] [address] [id number] [place] [address] 09 Aug Type 2 diabetes mellitus with hyperglycemia E11.65 ; care home current use of insulin Z79.4 ; Morbid obesity due to excess calories E66.01 ; Charcot foot due to diabetes mellitus E11.610 ; Depression, unspecified depression type F32.9 and Essential hypertension I10 [facility] [address] [facility] [id number] [address] Aug, 2017 [facility] NGHIA [address] [id number] [place] [address] Aug Scrotal swelling N50.89 and Depression, unspecified depression type F32.9 [facility] [address] [id number] [address] Jul, [facility] [address] [facility] [id number], [place] [address] Jul, [facility] [address] [id number] [place] [address] Jul, [facility] [place] [address] [id number] [place] [address] Jul Scrotal swelling N50.89 [facility] [place] [address] [id number] [place] [address] Jul [facility] [place] [address] [id number] [place] [address] Jul Scrotal swelling N50.89 [facility] [place] [address] [id number] [place] [address] Jul Charcot foot due to diabetes mellitus E11.610 [facility] [place] [address] [id number] [place] [address] Jul Depression, unspecified depression type F32.9 and BMI 50.0-59.9, adult Z68.43 [facility] [place] [address] [id number] [place] [address] Jun Depression, unspecified depression type F32.9 ; Charcot foot due to diabetes mellitus E11.610 and BMI 50.0-59.9, adult Z68.43 [facility] [place] [address] [id number] [place] [address] Jun [facility] [place] [address] [id number] [place] [address] May BMI 40.0-44.9, adult Z68.41 ; Type 2 diabetes mellitus with hyperglycemia E11.65 ; Essential hypertension I10 ; Depression, unspecified depression type F32.9 ; Charcot foot due to diabetes mellitus E11.610 and 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.4 [facility] [place] [address] [id number] [place] [address] May [facility] [place] [address] [id number] [place] [address] May [facility] [place] [address] [id number] [place] [address] May [facility] [place] [address] [id number] [place] [address] Apr [facility] [address] [facility] [id number] [place] [address] Apr, [facility] [place] [address] [id number] [place] [address] Apr [facility] [place] [address] [id number] [place] [address] Apr Type 2 diabetes mellitus with hyperglycemia E11.65 and Depression, unspecified depression type F32.9 [facility] [place] [address] [id number] [place] [address] Apr Encounter for immunization Z23 ; Type 2 diabetes mellitus with hyperglycemia E11.65 ; 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.4 ; Charcot foot due to diabetes mellitus E11.610 and Essential hypertension I10 [facility] CircuitsK [place] [address] [id number] [place] [address] Mar Essential hypertension I10 ; Charcot foot due to diabetes mellitus E11.610 and Type 2 diabetes mellitus with hyperglycemia E11.65 [facility] [place] [address] [id number] [place] [address] Mar [place] [address] [facility] [id number] [place] [address] Feb, [facility] [place] [address] [id number] [place] [address] Feb Type 2 diabetes mellitus with hyperglycemia E11.65 ; Essential hypertension I10 ; 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.4 ; Morbid obesity due to excess calories E66.01 ; Charcot foot due to diabetes mellitus E11.610 and Depression, unspecified depression type F32.9 [facility] [place] [address] [id number] [place] [address] Jan [facility] [place] [address] [id number] [place] [address] Jan [facility] [place] [address] [id number] [place] [address] Jan [place] [address] [facility] [id number] [place] [address] Jan, [facility] [place] [address] [id number] [place] [address] Dec Charcot foot due to diabetes mellitus E11.610 [facility] CircuitsK [place] [address] [id number] [place] [address] November [facility] [place] [address] [id number] [place] [address] November Type 2 diabetes mellitus with hyperglycemia E11.65 ; care home current use of insulin Z79.4 and Charcot foot due to diabetes mellitus E11.610 [facility] [place] [address] [id number] [place] [address] November Bronchitis J40 [facility] [place] [address] [id number] [place] [address] Oct Cellulitis of right lower extremity L03.115 and Charcot foot due to diabetes mellitus E11.610 [facility] [place] [address] [id number] [place] [address] Sep [facility] [address] [facility] [id number] [place] [address] Sep, [facility] [place] [address] [id number] [place] [address] Sep Bronchitis J40 [facility] [address] [id number] [place] [address] Sep, [facility] [place] [address] [id number] [place] [address] Sep Bronchitis J40 [facility] [place] [address] [id number] [place] [address] Sep Type 2 diabetes mellitus with hyperglycemia E11.65 [facility] [place] [address] [id number] [place] [address] Sep [facility] [address] [facility] [id number] [place] [address] Aug, [facility] [place] [address] [id number] [place] [address] Aug Type 2 diabetes mellitus with hyperglycemia E11.65 ; Depression, unspecified depression type F32.9 ; Charcot foot due to diabetes mellitus E11.610 and Encounter for immunization Z23 [facility] [place] [address] [id number] [place] [address] Aug [facility] [place] [address] [id number] [place] [address] Jul Type 2 diabetes mellitus with hyperglycemia E11.65 ; 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.4 ; Morbid obesity due to excess calories E66.01 and Charcot foot due to diabetes mellitus E11.610 [facility] [place] [address] [id number] [place] [address] 12 Dec , 2016 Type 2 diabetes mellitus with hyperglycemia E11.65 ; care home current use of insulin Z79.4 ; Morbid obesity due to excess calories E66.01 ; Charcot foot due to diabetes mellitus E11.610 and Encounter for immunization Z23 [facility] [address] [facility] [id number] [place] [address] Jun, [facility] [address] [facility] [id number] [place] [address] Jun, [facility] [place] [address] [id number] [place] [address] Jun Fever in other diseases R50.81 [facility] [place] [address] [id number] [place] [address] May [facility] [place] [address] [id number] [place] [address] May [facility] [place] [address] [id number] [place] [address] May Type 2 diabetes mellitus with hyperglycemia E11.65 [facility] [place] [address] [id number] [place] [address] May Type 2 diabetes mellitus with hyperglycemia E11.65 ; 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
--- OUTSIDE RECORDS SUMMARY | 2018-06-05 14:42 | XMS REPORT ---
Author Author CLAUDIA ARCHER [facility] Address [address] [place] [address] Care Team Providers Care Orthopedics Nurse Name Role Phone CLAUDIA ARCHER Unavailable PROBLEMS Type Condition ICD9-CM Code FDS70-GY Code Onset Dates Condition Status SNOMED Code Problem Charcot foot due to diabetes mellitus E11.610 Active 58803256 Problem Depression, unspecified depression type F32.9 Active 76706294 Problem Neuropathy involving both lower extremities G57.93 Active 047808553 Problem BMI 40.0-44.9, adult Z68.41 Active 231891488 Problem Type 2 diabetes mellitus with hyperglycemia E11.65 Active 76032034 Problem alf current use of insulin Z79.4 Active 174369217 Problem Essential hypertension I10 Active 69373024 Problem Morbid obesity due to excess calories E66.01 Active 404204729 ALLERGIES No Known Allergies ENCOUNTERS Encounter Location Date Diagnosis [facility] [address] [facility] [id number] [place] [address] Dec, [facility] [address] [id number] [place] [address] Dec Charcot foot due to diabetes mellitus E11.610 [facility] [address] [id number] [place] [address] Dec Neuropathy involving both lower extremities G57.93 [facility] [address] [id number] [place] [address] Dec [facility] [address] [id number] [place] [address] [facility] [address] [id number] [place] [address] November [facility] [address] [id number] [place] [address] November [facility] [place] [address] [id number] [place] [address] November [facility] [place] [address] [id number] [place] [address] November Type 2 diabetes mellitus with hyperglycemia E11.65 ; licensed clinician current use of insulin Z79.4 ; Morbid obesity due to excess calories E66.01 ; Charcot foot due to diabetes mellitus E11.610 ; Neuropathy involving both lower extremities G57.93 ; BMI 50.0-59.9, adult Z68.43 ; Depression, unspecified depression type F32.9 and Scrotal swelling N50.89 [facility] [place] [address] [id number] [place] [address] November [facility] [place] [address] [id number] [place] [address] Oct Charcot foot due to diabetes mellitus E11.610 [facility] [place] [address] [id number] [place] [address] Sep Type 2 diabetes mellitus with hyperglycemia E11.65 [facility] [place] [address] [id number] [place] [address] Sep Charcot foot due to diabetes mellitus E11.610 [facility] [place] [address] [id number] [place] [address] Sep [facility] [place] [address] [id number] [place] [address] Sep [facility] [place] [address] [id number] [place] [address] Sep Scrotal swelling N50.89 ; Fungal infection of the groin B35.6 and BMI 50.0-59.9, adult Z68.43 [facility] [place] [address] [id number] [place] [address] 05 Sep Scrotal swelling N50.89 [facility] [place] [address] [id number] [place] [address] Sep Scrotal swelling N50.89 [facility] [place] [address] [id number] [place] [address] Aug Scrotal swelling N50.89 [facility] [place] [address] [id number] [place] [address] 14 Aug Charcot foot due to diabetes mellitus E11.610 [facility] [place] [address] [id number] [place] [address] 09 Aug Type 2 diabetes mellitus with hyperglycemia E11.65 ; alf current use of insulin Z79.4 ; Morbid obesity due to excess calories E66.01 ; Charcot foot due to diabetes mellitus E11.610 ; Depression, unspecified depression type F32.9 and Essential hypertension I10 [facility] [address] [facility] [id number] [address] 07 Aug, 2017 [facility] [address] [id number] [place] [address] Aug Scrotal swelling N50.89 and Depression, unspecified depression type F32.9 [place] [address] [id number] [address] Jul, [facility] [address] [facility] [id number] [address] Jul, [facility] [address] [id number] [place] [address] Jul, [facility] [place] [address] [id number] [place] [address] Jul Scrotal swelling N50.89 [facility] [place] [address] [id number] [place] [address] [facility] [place] [address] [id number] [place] [address] [address] Scrotal swelling N50.89 [facility] [place] [address] [id number] [place] [address] Jul Charcot foot due to diabetes mellitus E11.610 [facility] [place] [address] [id number] [place] [address] Jul Depression, unspecified depression type F32.9 and BMI 50.0-59.9, adult Z68.43 [facility] [place] [address] [id number] [place] [address] Jun Depression, unspecified depression type F32.9 ; Charcot foot due to diabetes mellitus E11.610 and BMI 50.0-59.9, adult Z68.43 [facility] [place] [address] [id number] [place] [address] Jun [facility] [place] [address] [id number] [place] [address] May BMI 40.0-44.9, adult Z68.41 ; Type 2 diabetes mellitus with hyperglycemia E11.65 ; Essential hypertension I10 ; Depression, unspecified depression type F32.9 ; Charcot foot due to diabetes mellitus E11.610 and licensed clinician current use of insulin Z79.4 [facility] [place] [address] [id number] [place] [address] May [facility] [place] [address] [id number] [place] [address] May [facility] [place] [address] [id number] [place] [address] May [facility] [place] [address] [id number] [place] [address] [facility] [address] [facility] [id number] [place] [address] Apr, [facility] [place] [address] [id number] [place] [address] Apr [facility] [place] [address] [id number] [place] [address] Apr Type 2 diabetes mellitus with hyperglycemia E11.65 and Depression, unspecified depression type F32.9 [facility] [place] [address] [id number] [place] [address] Apr Encounter for immunization Z23 ; Type 2 diabetes mellitus with hyperglycemia E11.65 ; alf current use of insulin Z79.4 ; Charcot foot due to diabetes mellitus E11.610 and Essential hypertension I10 [facility] [place] [address] [id number] [place] [address] Mar Essential hypertension I10 ; Charcot foot due to diabetes mellitus E11.610 and Type 2 diabetes mellitus with hyperglycemia E11.65 [facility] [place] [address] [id number] [place] [address] Mar [place] [address] [facility] [id number] [address] Feb, [facility] [place] [address] [id number] [place] [address] Feb Type 2 diabetes mellitus with hyperglycemia E11.65 ; Essential hypertension I10 ; licensed clinician current use of insulin Z79.4 ; Morbid obesity due to excess calories E66.01 ; Charcot foot due to diabetes mellitus E11.610 and Depression, unspecified depression type F32.9 [facility] [place] [address] [id number] [place] [address] Jan [facility] [place] [address] [id number] [place] [address] Jan [facility] [place] [address] [id number] [place] [address] Jan [place] [address] [facility] [id number] [place] [address] Jan, [facility] [place] [address] [id number] [place] [address] Dec Charcot foot due to diabetes mellitus E11.610 [facility] [place] [address] [id number] [place] [address] November [facility] [place] [address] [id number] [place] [address] November Type 2 diabetes mellitus with hyperglycemia E11.65 ; alf current use of insulin Z79.4 and Charcot foot due to diabetes mellitus E11.610 [facility] [place] [address] [id number] [place] [address] November Bronchitis J40 [facility] [place] [address] [id number] [place] [address] Oct Cellulitis of right lower extremity L03.115 and Charcot foot due to diabetes mellitus E11.610 [facility] [place] [address] [id number] [place] [address] Sep [facility] [address] [facility] [id number] [place] [address] Sep, [facility] [address] [id number] [place] [address] [facility] [address] [id number] [place] [address] Sep, [facility] [place] [address] [id number] [place] [address] Sep Bronchitis J40 [facility] [address] [id number] [place] [address] Sep Type 2 diabetes mellitus with hyperglycemia E11.65 [facility] [address] [id number] [place] [address] Sep [facility] [address] [facility] [id number] [place] [address] Aug, [facility] [address] [id number] [place] [address] Aug Type 2 diabetes mellitus with hyperglycemia E11.65 ; Depression, unspecified depression type F32.9 ; Charcot foot due to diabetes mellitus E11.610 and Encounter for immunization Z23 [facility] [address] [id number] [place] [address] Aug [facility] [address] [id number] [place] [address] Jul Type 2 diabetes mellitus with hyperglycemia E11.65 ; licensed clinician current use of insulin Z79.4 ; Morbid obesity due to excess calories E66.01 and Charcot foot due to diabetes mellitus E11.610 [facility] [address] [id number] [place] [address] Jun Type 2 diabetes mellitus with hyperglycemia E11.65 ; alf current use of insulin Z79.4 ; Morbid obesity due to excess calories E66.01 ; Charcot foot due to diabetes mellitus E11.610 and Encounter for immunization Z23 [facility] [address] [facility] [id number] [place] [address] Jun, [facility] [address] [facility] [id number] [place] [address] Jun, [facility] [place] [address] [id number] [place] [address] Jun Fever in other diseases R50.81 [facility] [place] [address] [id number] [place] [address] May [facility] [address] [id number] [place] [address] May [facility] [place] [address] [id number] [place] [address] May Type 2 diabetes mellitus with hyperglycemia E11.65 [facility] [place] [address] [id number] [place] [address] May Type 2 diabetes mellitus with hyperglycemia E11.65 ; licensed clinician current use of insulin Z79.4 ; Morbid obesity due to excess calories E66.01 ; Charcot foot due to diabetes mellitus E11.610 and Depression, unspecified depression type F32.9 IMMUNIZATIONS No Known Immunizations SOCIAL HISTORY Never Assessed REASON FOR VISIT Depression follow up on viibryd doing better not crying and sleeping as much. Herlinda oropeza PLAN OF CARE Activity Details Follow Up 4 Weeks Reason:f/u depression VITAL SIGNS Height 74 in 2017-07-13 Weight 440.5 lbs 2017-07-13 Temperature 98.1 degrees Fahrenheit 2017-07-13 Heart Rate 92 bpm 2017-07-13 Respiratory Rate 20 2017-07-13 BMI 56.55 kg/m2 2017-07-13 Blood pressure systolic 140 mmHg 2017-07-13 Blood pressure diastolic 60 mmHg 2017-07-13 MEDICATIONS Medication Instructions Dosage Frequency Start Date End Date Duration Status Pen [place] 32G X 4 MM subcutaneously 3 times a day as directed 8h Sep, 90 days Active Toujeo SoloStar 300 UNIT/ML Subcutaneous Once a day 75 units 24h 90 days Active Glucocard Expression Monitor w/Device as directed Mar, Active Glucocard Expression Test - subcutaneously 4 times a day- 100 strips as directed Mar, 30 days Active MetFORMIN HCl ER 500 MG TAKE 2 TABLETS BY MOUTH TWICE DAILY 30 Active Flonase Allergy Relief 50 MCG/ACT Nasally Once a day 1 spray in each nostril 24h Jun, 30 day(s) Unknown Lisinopril 40 MG 1 tablet Once a day Orally 30 day(s) 30 Active Percocet 10-325 MG Orally every 6 hrs 1 tablet as needed 6h 28 days Active Bydureon 2 MG Subcutaneous weekly 2 mg 90 days Active NovoLog 100 UNIT/ML Subcutaneous 3 times a day 50 unit at meals 8h 90 days Active MetFORMIN HCl ER 500 MG 2 tablets 2 times a day Orally 30 days 30 Unknown Ibuprofen 200 MG Orally PRN 4 tab Active Multivitamin Men Orally PRN 1 tablet Active Viibryd 20 mg Orally Once a day 1 tablet with food 24h Jun, 90 days Active Atorvastatin Calcium 80 MG Orally Once a day 1/2 tablet 24h May, 90 days Active RESULTS No Results PROCEDURES [...]
--- OUTSIDE RECORDS SUMMARY | 2018-06-05 14:42 | XMS REPORT ---
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
--- OUTSIDE RECORDS SUMMARY | 2018-06-05 14:42 | XMS REPORT ---
Author Author [facility]ER [facility] Address [address] [place] [address] Care Team Providers Care Aircraft Maintenance Manager Name Role Phone CLAUDIA ARCHER Unavailable PROBLEMS Type Condition ICD9-CM Code OLO03-KT Code Onset Dates Condition Status SNOMED Code Problem Essential hypertension I10 Active 23894698 Problem Morbid obesity due to excess calories E66.01 Active 425181109 Problem Type 2 diabetes mellitus with hyperglycemia E11.65 Active 70533393 Problem terminal computer operator current use of insulin Z79.4 Active 107516912 Problem Charcot foot due to diabetes mellitus E11.610 Active 95487325 Problem Depression, unspecified depression type F32.9 Active 93292913 ALLERGIES No Information SOCIAL HISTORY Never Assessed [...]
--- OUTSIDE RECORDS SUMMARY | 2018-06-05 14:42 | XMS REPORT ---
Author Author CLAUDIA ARCHER [facility] [place] Address [address] [place] [address] Care Team Providers Care Supervisor Tunnel Heading Name Role Phone CLAUDIA ARCHER Unavailable PROBLEMS Type Condition ICD9-CM Code JNS95-FC Code Onset Dates Condition Status SNOMED Code Problem Depression, unspecified depression type F32.9 Active 47160057 Problem BMI 40.0-44.9, adult Z68.41 Active 958084837 Problem Essential hypertension I10 Active 03347090 Problem intermediate frame tender current use of insulin Z79.4 Active 361429914 Problem Charcot foot due to diabetes mellitus E11.610 Active 77819849 Problem Morbid obesity due to excess calories E66.01 Active 088452551 Problem Type 2 diabetes mellitus with hyperglycemia E11.65 Active [id number] ALLERGIES No Information ENCOUNTERS Encounter Location Date Diagnosis [facility] [address] [id number] [place] [address] November [facility] [address] [id number] [place] [address] November [facility] [address] [id number] [place] [address] Oct Charcot foot due to diabetes mellitus E11.610 [facility] [address] [id number] [place] [address] Sep Type 2 diabetes mellitus with hyperglycemia E11.65 [facility] [address] [id number] [place] [address] Sep Charcot foot due to diabetes mellitus E11.610 [facility] [address] [id number] [place] [address] Sep [facility] [address] [id number] [place] [address] Sep [facility] [address] [id number] [place] [address] Sep Scrotal swelling N50.89 ; Fungal infection of the groin B35.6 and BMI 50.0-59.9, adult Z68.43 [facility] [address] [id number] [place] [address] Sep Scrotal swelling N50.89 [facility] [place] [address] [id number] [place] [address] Sep Scrotal swelling N50.89 [facility] [place] [address] [id number] [place] [address] Aug Scrotal swelling N50.89 [facility] NGHIA [address] [id number] [place] [address] Aug Charcot foot due to diabetes mellitus E11.610 [facility] NGHIA [address] [id number] [place] [address] 09 Aug Type 2 diabetes mellitus with hyperglycemia E11.65 ; intermediate current use of insulin Z79.4 ; Morbid obesity due to excess calories E66.01 ; Charcot foot due to diabetes mellitus E11.610 ; Depression, unspecified depression type F32.9 and Essential hypertension I10 [place] [address] [id number] [address] Aug, [facility] NGHIA [address] [id number] [place] [address] Aug Scrotal swelling N50.89 and Depression, unspecified depression type F32.9 [place] [address] [id number] [address] Jul, [place] [address] [address] Jul, [facility] G[address] [id number] [place] [address] Jul, [facility] NGHIA [address] [id number] [place] [address] Jul Scrotal swelling N50.89 [facility] [place] [address] [id number] [place] [address] Jul [facility] [place] [address] [id number] [place] [address] Jul Scrotal swelling N50.89 [facility] [place] [address] [id number] [place] [address] Jul Charcot foot due to diabetes mellitus E11.610 [facility] [place] [address] [id number] [place] [address] Jul Depression, unspecified depression type F32.9 and BMI 50.0-59.9, adult Z68.43 [facility] [place] [address] [id number] [place] [address] Jun Depression, unspecified depression type F32.9 ; Charcot foot due to diabetes mellitus E11.610 and BMI 50.0-59.9, adult Z68.43 [facility] [place] [address] [id number] [place] [address] Jun [facility] [place] [address] [id number] [place] [address] 09 May BMI 40.0-44.9, adult Z68.41 ; Type 2 diabetes mellitus with hyperglycemia E11.65 ; Essential hypertension I10 ; Depression, unspecified depression type F32.9 ; Charcot foot due to diabetes mellitus E11.610 and intermediate frame tender current use of insulin Z79.4 [facility] [place] [address] [id number] [place] [address] May [facility] [place] [address] [id number] [place] [address] May [facility] [place] [address] [id number] [place] [address] May [facility] [place] [address] [id number] [place] [address] Apr [facility] [address] [facility] [id number] [place] [address] Apr, [facility] [place] [address] [id number] [place] [address] Apr [facility] [place] [address] [id number] [place] [address] Apr Type 2 diabetes mellitus with hyperglycemia E11.65 and Depression, unspecified depression type F32.9 [facility] [place] [address] [id number] [place] [address] Apr Encounter for immunization Z23 ; Type 2 diabetes mellitus with hyperglycemia E11.65 ; intermediate frame tender current use of insulin Z79.4 ; Charcot foot due to diabetes mellitus E11.610 and Essential hypertension I10 [facility] [place] [address] [id number] [place] [address] Mar Essential hypertension I10 ; Charcot foot due to diabetes mellitus E11.610 and Type 2 diabetes mellitus with hyperglycemia E11.65 [facility] [place] [address] [id number] [place] [address] Mar [place] [address] [id number] [place] [address] Feb, [facility] AKRONEpic[facility] N[place]IA [address] [id number] [place] [address] Feb Type 2 diabetes mellitus with hyperglycemia E11.65 ; Essential hypertension I10 ; intermediate current use of insulin Z79.4 ; Morbid obesity due to excess calories E66.01 ; Charcot foot due to diabetes mellitus E11.610 and Depression, unspecified depression type F32.9 [facility] [place] [address] [id number] [place] [address] Jan [facility] [place] [address] [id number] [place] [address] Jan [facility]ITALRLX TechnologiesLuz [place] [address] [id number] [place] [address] Jan [facility] [address] [facility] [id number] [place] [address] Jan, [facility] N[place] [address] [id number] [place] [address] Dec Charcot foot due to diabetes mellitus E11.610 [facility] [place] [address] [id number] [place] [address] November [facility] [place] [address] [id number] [place] [address] November Type 2 diabetes mellitus with hyperglycemia E11.65 ; intermediate current use of insulin Z79.4 and Charcot foot due to diabetes mellitus E11.610 [facility] [place] [address] [id number] [place] [address] November Bronchitis J40 [facility] [place] [address] [id number] [place] [address] Oct Cellulitis of right lower extremity L03.115 and Charcot foot due to diabetes mellitus E11.610 [facility] [place] [address] [id number] [place] [address] Sep [facility] [address] [facility] [id number] [place] [address] Sep, [facility] [place] [address] [id number] [place] [address] Sep Bronchitis J40 [facility] [address]GARCIA[address] [id number] [place] [address] Sep, [facility] [place] [address] [id number] [place] [address] Sep Bronchitis J40 [facility] [place] [address] [id number] [place] [address] Sep Type 2 diabetes mellitus with hyperglycemia E11.65 [facility] [place] [address] [id number] [place] [address] Sep [facility] [address] [facility] [id number] [place] [address] Aug, [facility] [place] [address] [id number] [place] [address] Aug Type 2 diabetes mellitus with hyperglycemia E11.65 ; Depression, unspecified depression type F32.9 ; Charcot foot due to diabetes mellitus E11.610 and Encounter for immunization Z23 [facility] NGHIA [address] [id number] [place] [address] Aug [facility] N[place] [id number] [place] [address] Jul Type 2 diabetes mellitus with hyperglycemia E11.65 ; intermediate frame tender current use of insulin Z79.4 ; Morbid obesity due to excess calories E66.01 and Charcot foot due to diabetes mellitus E11.610 [facility] [place] [address] [id number] [place] [address] Jun Type 2 diabetes mellitus with hyperglycemia E11.65 ; intermediate frame tender current use of insulin Z79.4 ; Morbid obesity due to excess calories E66.01 ; Charcot foot due to diabetes mellitus E11.610 and Encounter for immunization Z23 [place] [address] [id number] [address] Jun, [place] [address] [id number] [address] Jun, [facility] [place] [address] [id number] [place] [address] Jun Fever in other diseases R50.81 [facility] [place] [address] [id number] [place] [address] May [facility] [place] [address] [id number] [place] [address] May [facility] [place] [address] [id number] [place] [address] May Type 2 diabetes mellitus with hyperglycemia E11.65 [facility] N[address] [id number] [place] [address] May Type 2 diabetes mellitus with hyperglycemia [...]
--- OUTSIDE RECORDS SUMMARY | 2018-06-05 14:42 | XMS REPORT ---
Author Author CLAUDIA ARCHER [facility] Address [address] [place] [address] Care Team Providers Care Pediatric Intensive Physician Name Role Phone CLAUDIA ARCHER Unavailable PROBLEMS Type Condition ICD9-CM Code CSG94-WD Code Onset Dates Condition Status SNOMED Code Problem Charcot foot due to diabetes mellitus E11.610 Active 51306605 Problem Depression, unspecified depression type F32.9 Active 09410477 Problem Neuropathy involving both lower extremities G57.93 Active 800065982 Problem BMI 40.0-44.9, adult Z68.41 Active 309163422 Problem Type 2 diabetes mellitus with hyperglycemia E11.65 Active 15632776 Problem FCI current use of insulin Z79.4 Active 666413612 Problem Essential hypertension I10 Active 35127084 Problem Morbid obesity due to excess calories E66.01 Active 377136173 ALLERGIES No Information ENCOUNTERS Encounter Location Date Diagnosis [facility] [place] [address] [facility] [id number] [place] [address] Dec, [facility] [address] [id number] [place] [address] Dec Charcot foot due to diabetes mellitus E11.610 [facility]Lock[facility] [address] [id number] [place] [address] Dec Neuropathy involving both lower extremities G57.93 [facility] [address] [id number] [place] [address] Dec [facility] [address] [id number] [place] [address] November [facility] [address] [id number] [place] [address] November [facility] [address] [id number] [place] [address] November [facility] [place] [address] [id number] [place] [address] November [facility] [place] [address] [id number] [place] [address] November Type 2 diabetes mellitus with hyperglycemia E11.65 ; 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 ; Morbid obesity due to excess calories E66.01 ; Charcot foot due to diabetes mellitus E11.610 ; Neuropathy involving both lower extremities G57.93 ; BMI 50.0-59.9, adult Z68.43 ; Depression, unspecified depression type F32.9 and Scrotal swelling N50.89 [facility] [place] [address] [id number] [place] [address] November [facility] [place] [address] [id number] [place] [address] Oct Charcot foot due to diabetes mellitus E11.610 [facility] [place] [address] [id number] [place] [address] Sep Type 2 diabetes mellitus with hyperglycemia E11.65 [facility] [place] [address] [id number] [place] [address] Sep Charcot foot due to diabetes mellitus E11.610 [facility] [place] [address] [id number] [place] [address] Sep [facility] [place] [address] [id number] [place] [address] Sep [facility] [place] [address] [id number] [place] [address] Sep Scrotal swelling N50.89 ; Fungal infection of the groin B35.6 and BMI 50.0-59.9, adult Z68.43 [facility] [place] [address] [id number] [place] [address] 05 Sep Scrotal swelling N50.89 [facility] [place] [address] [id number] [place] [address] Sep Scrotal swelling N50.89 [facility] [place] [address] [id number] [place] [address] Aug Scrotal swelling N50.89 [facility] [place] [address] [id number] [place] [address] 14 Aug Charcot foot due to diabetes mellitus E11.610 [facility] [place] [address] [id number] [place] [address] 09 Aug Type 2 diabetes mellitus with hyperglycemia E11.65 ; FCI current use of insulin Z79.4 ; Morbid obesity due to excess calories E66.01 ; Charcot foot due to diabetes mellitus E11.610 ; Depression, unspecified depression type F32.9 and Essential hypertension I10 [facility] [place] [address] [facility] [id number] [address] Aug, 2017 [facility] NGHIA [address] [id number] [place] [address] Aug Scrotal swelling N50.89 and Depression, unspecified depression type F32.9 [facility] [place] [address] [id number] [address] Jul, [facility] [place] [address] [facility] [id number] [address] Jul, [facility] [address] [id number] [place] [address] Jul, [facility] [place] [address] [id number] [place] [address] Jul Scrotal swelling N50.89 [facility] [place] [address] [id number] [place] [address] Jul [facility]UM[facility]ULLL[facility] [place] [address] [id number] [place] [address] Jul Scrotal swelling N50.89 [facility] [place] [address] [id number] [place] [address] Jul Charcot foot due to diabetes mellitus E11.610 [facility] [place] [address] [id number] [place] [address] Jul Depression, unspecified depression type F32.9 and BMI 50.0-59.9, adult Z68.43 [facility] [place] [address] [id number] [place] [address] Jun Depression, unspecified depression type F32.9 ; Charcot foot due to diabetes mellitus E11.610 and BMI 50.0-59.9, adult Z68.43 [facility] [place] [address] [id number] [place] [address] Jun [facility] [place] [address] [id number] [place] [address] May BMI 40.0-44.9, adult Z68.41 ; Type 2 diabetes mellitus with hyperglycemia E11.65 ; Essential hypertension I10 ; Depression, unspecified depression type F32.9 ; Charcot foot due to diabetes mellitus E11.610 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 [facility] [place] [address] [id number] [place] [address] May [facility] [place] [address] [id number] [place] [address] May [facility] [place] [address] [id number] [place] [address] May [facility] [place] [address] [id number] [place] [address] Apr [facility]ULLNTN [employer] [facility] [address] [facility] [id number] [place] [address] Apr, [facility] [place] [address] [id number] [place] [address] Apr [facility] [place] [address] [id number] [place] [address] Apr Type 2 diabetes mellitus with hyperglycemia E11.65 and Depression, unspecified depression type F32.9 [facility] [place] [address] [id number] [place] [address] Apr Encounter for immunization Z23 ; Type 2 diabetes mellitus with hyperglycemia E11.65 ; 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 ; Charcot foot due to diabetes mellitus E11.610 and Essential hypertension I10 [facility]OSPITALNiutech EnergyK [place] [address] [id number] [place] [address] Mar Essential hypertension I10 ; Charcot foot due to diabetes mellitus E11.610 and Type 2 diabetes mellitus with hyperglycemia E11.65 [facility] [place] [address] [id number] [place] [address] Mar [place] [address] [facility] [id number] [place] [address] Feb, [facility]ITALHyper[facility] [place] [address] [id number] [place] [address] Feb Type 2 diabetes mellitus with hyperglycemia E11.65 ; Essential hypertension I10 ; 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 ; Morbid obesity due to excess calories E66.01 ; Charcot foot due to diabetes mellitus E11.610 and Depression, unspecified depression type F32.9 [facility] TRUM[facility]ULLNTN [employer] [place] [address] [id number] [place] [address] Jan [facility] [place] [address] [id number] [place] [address] Jan [facility] [place] [address] [id number] [place] [address] Jan [place] [address] [facility] [id number] [place] [address] Jan, [facility]OSPITALNiutech EnergyLuz [place] [address] [id number] [place] [address] Dec Charcot foot due to diabetes mellitus E11.610 [facility]PITALNiutech EnergyK [place] [address] [id number] [place] [address] November [facility]ITALSENTN [employer]time [place] [address] [id number] [place] [address] November Type 2 diabetes mellitus with hyperglycemia E11.65 ; FCI current use of insulin Z79.4 and Charcot foot due to diabetes mellitus E11.610 [facility] [place] [address] [id number] [place] [address] November Bronchitis J40 [facility]ITALHyper[facility] [place] [address] [id number] [place] [address] Oct Cellulitis of right lower extremity L03.115 and Charcot foot due to diabetes mellitus E11.610 [facility] N[place]IA [address] [id number] [place] [address] Sep [facility] [place] [address] [facility] [id number] [place] [address] Sep, [facility]ALSE[facility] N[place] [address] [id number] [place] [address] Sep Bronchitis J40 [facility] [address] [id number] [place] [address] Sep, [facility]ALSELuz [place] [address] [id number] [place] [address] Sep Bronchitis J40 [facility] N[place]IA [address] [id number] [place] [address] Sep Type 2 diabetes mellitus with hyperglycemia E11.65 [facility]ALSE[facility] [place] [address] [id number] [place] [address] Sep [facility] [place] [address] [facility] [id number] [place] [address] Aug, [facility]ITALVINCE N[place] [address] [id number] [place] [address] Aug Type 2 diabetes mellitus with hyperglycemia E11.65 ; Depression, unspecified depression type F32.9 ; Charcot foot due to diabetes mellitus E11.610 and Encounter for immunization Z23 [facility] [place] [address] [id number] [place] [address] Aug [facility] [place] [address] [id number] [place] [address] Jul Type 2 diabetes mellitus with hyperglycemia E11.65 ; 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 ; Morbid obesity due to excess calories E66.01 and Charcot foot due to diabetes mellitus E11.610 [facility] [place] [address] [id number] [place] [address] 12 Dec , 2016 Type 2 diabetes mellitus with hyperglycemia E11.65 ; FCI current use of insulin Z79.4 ; Morbid obesity due to excess calories E66.01 ; Charcot foot due to diabetes mellitus E11.610 and Encounter for immunization Z23 [facility] [place] [address] [facility] [id number] [place] [address] Jun, [facility] [place] [address] [facility] [id number] [place] [address] Jun, [facility] [place] [address] [id number] [place] [address] Jun Fever in other diseases R50.81 [facility] [address] [id number] [place] [address] May [facility] [address] [id number] [place] [address] May [facility] [address] [id number] [place] [address] May Type 2 diabetes mellitus with hyperglycemia E11.65 [facility] [address] [id number] [place] [address] May Type 2 diabetes mellitus with hyperglycemia [...] Frequency Start Date End Date Duration Status Levaquin 750 MG Orally Once a day 1 tablet 24h Jul, 2 Aug, 2017 07 days Active RESULTS No Results PROCEDURES No [...]
--- OUTSIDE RECORDS SUMMARY | 2018-06-05 14:43 | XMS REPORT ---
Author Author CLAUDIA ARCHER [facility] [place] Address [address] [place] [address] Care Team Providers Care Lard Bleacher Name Role Phone CLAUDIA ARCHER Unavailable PROBLEMS Type Condition ICD9-CM Code DTV20-WL Code Onset Dates Condition Status SNOMED Code Problem Charcot foot due to diabetes mellitus E11.610 Active 43432465 Problem Depression, unspecified depression type F32.9 Active 18071212 Problem Neuropathy involving both lower extremities G57.93 Active 626150523 Problem BMI 40.0-44.9, adult Z68.41 Active 889856390 Problem Type 2 diabetes mellitus with hyperglycemia E11.65 Active 88849179 Problem custodial current use of insulin Z79.4 Active 231968031 Problem Essential hypertension I10 Active 12998175 Problem Morbid obesity due to excess calories E66.01 Active 571343827 ALLERGIES No Known Allergies ENCOUNTERS Encounter Location Date Diagnosis [facility] [address] [id number] [place] [address] Dec [facility] [address] [id number] [place] [address] Dec [facility] [address] [id number] [place] [address] November [facility] [address] [id number] [place] [address] November [facility] [address] [id number] [place] [address] November [facility] [address] [id number] [place] [address] November [facility] [address] [id number] [place] [address] November Type 2 diabetes mellitus with hyperglycemia E11.65 ; long term care administrator current use of insulin Z79.4 ; Morbid obesity due to excess calories E66.01 ; Charcot foot due to diabetes mellitus E11.610 ; Neuropathy involving both lower extremities G57.93 ; BMI 50.0-59.9, adult Z68.43 ; Depression, unspecified depression type F32.9 and Scrotal swelling N50.89 [facility] [place] [address] [id number] [place] [address] November [facility] [place] [address] [id number] [place] [address] Oct Charcot foot due to diabetes mellitus E11.610 [facility] [place] [address] [id number] [place] [address] Sep Type 2 diabetes mellitus with hyperglycemia E11.65 [facility] [place] [address] [id number] [place] [address] Sep Charcot foot due to diabetes mellitus E11.610 [facility] [place] [address] [id number] [place] [address] Sep [facility] [place] [address] [id number] [place] [address] Sep [facility] [place] [address] [id number] [place] [address] Sep Scrotal swelling N50.89 ; Fungal infection of the groin B35.6 and BMI 50.0-59.9, adult Z68.43 [facility] [place] [address] [id number] [place] [address] Sep Scrotal swelling N50.89 [facility] [place] [address] [id number] [place] [address] Sep Scrotal swelling N50.89 [facility] [place] [address] [id number] [place] [address] Aug Scrotal swelling N50.89 [facility] [place] [address] [id number] [place] [address] Aug Charcot foot due to diabetes mellitus E11.610 [facility] [place] [address] [id number] [place] [address] Aug Type 2 diabetes mellitus with hyperglycemia E11.65 ; long term care administrator current use of insulin Z79.4 ; Morbid obesity due to excess calories E66.01 ; Charcot foot due to diabetes mellitus E11.610 ; Depression, unspecified depression type F32.9 and Essential hypertension I10 [facility] [address] [facility] [id number] [address] Aug, [facility] [place] [address] [id number] [place] [address] Aug Scrotal swelling N50.89 and Depression, unspecified depression type F32.9 [place] [address] [id number] [address] Jul, [place] [address] [facility] [id number], [place] [address] Jul, [address] [id number] [place] [id number] Jul, [facility] [place] [address] [id number] [place] [address] Jul Scrotal swelling N50.89 [facility] [place] [address] [id number] [place] [address] Jul [facility] [place] [address] [id number] [place] [address] Jul Scrotal swelling N50.89 [facility] [place] [address] [id number] [place] [address] Jul Charcot foot due to diabetes mellitus E11.610 [facility] [place] [address] [id number] [place] [address] Jul Depression, unspecified depression type F32.9 and BMI 50.0-59.9, adult Z68.43 [facility] [place] [address] [id number] [place] [address] Jun Depression, unspecified depression type F32.9 ; Charcot foot due to diabetes mellitus E11.610 and BMI 50.0-59.9, adult Z68.43 [facility] [place] [address] [id number] [place] [address] Jun [facility] [place] [address] [id number] [place] [address] May BMI 40.0-44.9, adult Z68.41 ; Type 2 diabetes mellitus with hyperglycemia E11.65 ; Essential hypertension I10 ; Depression, unspecified depression type F32.9 ; Charcot foot due to diabetes mellitus E11.610 and custodial current use of insulin Z79.4 [facility] [place] [address] [id number] [place] [address] May [facility] [place] [address] [id number] [place] [address] May [facility] [place] [address] [id number] [place] [address] May [facility] [place] [address] [id number] [place] [address] Apr [facility] [address] [facility] [id number] [place] [address] Apr, [facility] [place] [address] [id number] [place] [address] Apr [facility] [place] [address] [id number] [place] [address] Apr Type 2 diabetes mellitus with hyperglycemia E11.65 and Depression, unspecified depression type F32.9 [facility] [place] [address] [id number] [place] [address] Apr Encounter for immunization Z23 ; Type 2 diabetes mellitus with hyperglycemia E11.65 ; custodial current use of insulin Z79.4 ; Charcot foot due to diabetes mellitus E11.610 and Essential hypertension I10 [facility] [place] [address] [id number] [place] [address] Mar Essential hypertension I10 ; Charcot foot due to diabetes mellitus E11.610 and Type 2 diabetes mellitus with hyperglycemia E11.65 [facility] [place] [address] [id number] [place] [address] Mar [place] [address] [facility] [id number] [place] [address] Feb, [facility] [place] [address] [id number] [place] [address] Feb Type 2 diabetes mellitus with hyperglycemia E11.65 ; Essential hypertension I10 ; custodial current use of insulin Z79.4 ; Morbid obesity due to excess calories E66.01 ; Charcot foot due to diabetes mellitus E11.610 and Depression, unspecified depression type F32.9 [facility] [place] [address] [id number] [place] [address] Jan [facility] [place] [address] [id number] [place] [address] Jan [facility] [place] [address] [id number] [place] [address] Jan [place] [address] [facility] [id number] [place] [address] Jan, [facility] [place] [address] [id number] [place] [address] Dec Charcot foot due to diabetes mellitus E11.610 [facility] [place] [address] [id number] [place] [address] November [facility] [place] [address] [id number] [place] [address] November Type 2 diabetes mellitus with hyperglycemia E11.65 ; custodial current use of insulin Z79.4 and Charcot foot due to diabetes mellitus E11.610 [facility] [place] [address] [id number] [place] [address] November Bronchitis J40 [facility] [place] [address] [id number] [place] [address] Oct Cellulitis of right lower extremity L03.115 and Charcot foot due to diabetes mellitus E11.610 [facility] [place] [address] [id number] [place] [address] Sep [place] [address] [facility] [id number] [place] [address] Sep, [facility] [place] [address] [id number] [place] [address] Sep Bronchitis J40 [facility] [address] [id number] [place] [address] Sep, 2016 [facility] [place] [address] [id number] [place] [address] Sep Bronchitis J40 [facility] [place] [address] [id number] [place] [address] Sep Type 2 diabetes mellitus with hyperglycemia E11.65 [facility] [place] [address] [id number] [place] [address] Sep [place] [address] [facility] [id number] [place] [address] Aug, [facility] [place] [address] [id number] [place] [address] Aug Type 2 diabetes mellitus with hyperglycemia E11.65 ; Depression, unspecified depression type F32.9 ; Charcot foot due to diabetes mellitus E11.610 and Encounter for immunization Z23 [facility] [place] [address] [id number] [place] [address] Aug [facility] [place] [address] [id number] [place] [address] Jul Type 2 diabetes mellitus with hyperglycemia E11.65 ; long term care administrator current use of insulin Z79.4 ; Morbid obesity due to excess calories E66.01 and Charcot foot due to diabetes mellitus E11.610 [facility] [place] [address] [id number] [place] [address] Jun Type 2 diabetes mellitus with hyperglycemia E11.65 ; custodial current use of insulin Z79.4 ; Morbid obesity due to excess calories E66.01 ; Charcot foot due to diabetes mellitus E11.610 and Encounter for immunization Z23 [place] [address] [facility] [id number] [place] [address] Jun, [place] [address] [facility] [id number] [place] [address] Jun, [facility] N[place]IA [address] [id number] [place] [address] Jun Fever in other diseases R50.81 [facility] N[place] [address] [id number] [place] [address] May [facility] [address] [id number] [place] [address] May [facility] [address] [id number] [place] [address] May Type 2 diabetes mellitus with hyperglycemia E11.65 [facility] [place] MILLAE [id number] [place] [address] 10 May Type 2 diabetes mellitus with hyperglycemia E11.65 ; custodial current use of insulin Z79.4 ; Morbid obesity due to excess calories E66.01 ; Charcot foot due to diabetes mellitus E11.610 and Depression, unspecified depression type F32.9 IMMUNIZATIONS No Known Immunizations SOCIAL HISTORY Never Assessed REASON FOR VISIT Depression. Depression screeing completed. Pt is tearful. yessenia, RN PLAN OF CARE Activity Details Follow Up 4 Weeks Reason:depression VITAL SIGNS Height 74 in 2017-06-21 Weight 428 lbs 2017-06-21 Temperature 97.4 degrees Fahrenheit 2017-06-21 Heart Rate 97 bpm 2017-06-21 Respiratory Rate 20 2017-06-21 BMI 54.95 kg/m2 2017-06-21 Blood pressure systolic 165 mmHg 2017-06-21 Blood pressure diastolic 85 mmHg 2017-06-21 MEDICATIONS Medication Instructions Dosage Frequency Start Date End Date Duration Status Toufatoumata SoloStar 300 UNIT/ML Subcutaneous Once a day 75 units 24h 90 days Active Flonase Allergy Relief 50 MCG/ACT Nasally Once a day 1 spray in each nostril 24h Jun, 30 day(s) Not-Taking Ibuprofen 200 MG Orally PRN 4 tab Active Lisinopril 40 MG Orally Once a day 1 tablet 24h 30 days Active MetFORMIN HCl ER 500 MG 2 tablets 2 times a day Orally 30 days 30 Not-Taking Percocet 10-325 MG Orally every 6 hrs 1 tablet as needed 6h 28 days Active Multivitamin Men Orally PRN 1 tablet Active NovoLog 100 UNIT/ML Subcutaneous 3 times a day 50 unit at meals 8h 90 days Active Viibryd 20 mg Orally Once a day 1 tablet with food 24h Jun, 30 day(s) Active MetFORMIN HCl ER 500 MG TAKE 2 TABLETS BY MOUTH TWICE DAILY 30 Active Glucocard Expression Test - subcutaneously 4 times a day- 100 strips as directed Mar, 30 days Active Bydureon 2 MG Subcutaneous weekly 2 mg 90 days Active Glucocard Expression Monitor w/Device as directed Mar, Active Atorvastatin Calcium 80 MG Orally Once a day 1/2 tablet 24h May, 90 days Active Pen Metz 32G X 4 MM subcutaneously 3 times a day as directed 8h Sep, 90 days Active RESULTS No Results PROCEDURES [...]
--- OUTSIDE RECORDS SUMMARY | 2018-06-05 14:43 | XMS REPORT ---
Author Author [facility] ARCHER [facility] [place] Address [address] [place] [address] Care Team Providers Care Deckhand Engineer Name Role Phone CLAUDIA ARCHER Unavailable PROBLEMS Type Condition ICD9-CM Code AOL27-YQ Code Onset Dates Condition Status SNOMED Code Problem Essential hypertension I10 Active 23449993 Problem Morbid obesity due to excess calories E66.01 Active 321275690 Problem Type 2 diabetes mellitus with hyperglycemia E11.65 Active 67638313 Problem terminal gauger current use of insulin Z79.4 Active 891031331 Problem Charcot foot due to diabetes mellitus E11.610 Active 61085638 Problem Depression, unspecified depression type F32.9 Active 91714444 ALLERGIES Unknown Allergies SOCIAL HISTORY No smoking Hx information available PLAN OF CARE VITAL SIGNS MEDICATIONS Unknown Medications RESULTS No Results PROCEDURES No Known procedures IMMUNIZATIONS No Known Immunizations
--- OUTSIDE RECORDS SUMMARY | 2018-06-05 14:43 | XMS REPORT ---
Author Author CLAUDIA ARCHER [facility] [place] Address [address] [place] [address] Care Team Providers Care Loop Puller Name Role Phone CLAUDIA ARCHER Unavailable PROBLEMS Type Condition ICD9-CM Code OCD02-[place] Code Onset Dates Condition Status SNOMED Code Problem Depression, unspecified depression type F32.9 Active 68658829 Problem BMI 40.0-44.9, adult Z68.41 Active 732600564 Problem Essential hypertension I10 Active 08577789 Problem exterminator termite current use of insulin Z79.4 Active 259590923 Problem Charcot foot due to diabetes mellitus E11.610 Active 13478887 Problem Morbid obesity due to excess calories E66.01 Active 652705956 Problem Type 2 diabetes mellitus with hyperglycemia E11.65 Active 68224506 ALLERGIES No Information ENCOUNTERS Encounter Location Date Diagnosis [facility] [address] [id number] [place] [address] Sep Type 2 diabetes mellitus with hyperglycemia E11.65 [facility] [address] [id number] [place] [address] Sep Charcot foot due to diabetes mellitus E11.610 [facility] [address] [id number] [place] [address] [facility] [address] [id number] [place] [address] Sep [facility] [address] [id number] [place] [address] 08 Sep Scrotal swelling N50.89 ; Fungal infection of the groin B35.6 and BMI 50.0-59.9, adult Z68.43 [facility] [address] [id number] [place] [address] 05 Sep Scrotal swelling N50.[address] [facility] [address] [id number] [place] [address] Sep Scrotal swelling N50.[address] [facility] [place] [address] [id number] [place] [address] Aug Scrotal swelling N50.[address] [facility] [place] [address] [id number] [place] [address] 14 Aug Charcot foot due to diabetes mellitus E11.610 [facility] NGHIA [address] [id number] [place] [address] Aug Type 2 diabetes mellitus with hyperglycemia E11.65 ; exterminator termite current use of insulin Z79.4 ; Morbid obesity due to excess calories E66.01 ; Charcot foot due to diabetes mellitus E11.610 ; Depression, unspecified depression type F32.9 and Essential hypertension I10 [facility] [address] [facility] [id number] [address] Aug, [facility] NGHIA [address] [id number] [place] [address] Aug Scrotal swelling N50.89 and Depression, unspecified depression type F32.9 [facility] [address], [place] [address] Jul, [facility] [place] [address] [facility] [id number], [place] [address] Jul, [address] [id number] [place] [address] Jul, [facility] [place] [address] [id number] [place] [address] Jul Scrotal swelling N50.[address] [facility] [place] [address] [id number] [place] [address] [facility] [place] [address] [id number] [place] [address] Jul Scrotal swelling N50.[address] [facility] [place] [address] [id number] [place] [address] Jul Charcot foot due to diabetes mellitus E11.610 [facility] [place] [address] [id number] [place] [address] Jul Depression, unspecified depression type F32.9 and BMI 50.0-59.9, adult Z68.43 [facility] [place] [address] [id number] [place] [address] Jun Depression, unspecified depression type F32.9 ; Charcot foot due to diabetes mellitus E11.610 and BMI 50.0-59.9, adult Z68.43 [facility] [place] [address] [id number] [place] [address] Jun [facility] [place] [address] [id number] [place] [address] May BMI 40.0-44.9, adult Z68.41 ; Type 2 diabetes mellitus with hyperglycemia E11.65 ; Essential hypertension I10 ; Depression, unspecified depression type F32.9 ; Charcot foot due to diabetes mellitus E11.610 and exterminator termite current use of insulin Z79.4 [facility] [place] [address] [id number] [place] [address] May [facility] [place] [address] [id number] [place] [address] May [facility] [place] [address] [id number] [place] [address] May [facility]PITALProTendersK [place] [address] [id number] [place] [address] [facility]ITAL[facility] [address] [facility] [id number] [place] [address] Apr, [facility] [place] [address] [id number] [place] [address] Apr [facility] [place] [address] [id number] [place] [address] Apr Type 2 diabetes mellitus with hyperglycemia E11.65 and Depression, unspecified depression type F32.9 [facility] [place] [address] [id number] [place] [address] Apr Encounter for immunization Z23 ; Type 2 diabetes mellitus with hyperglycemia E11.65 ; exterminator termite current use of insulin Z79.4 ; Charcot foot due to diabetes mellitus E11.610 and Essential hypertension I10 [facility] N[place] [address] [id number] [place] [address] Mar Essential hypertension I10 ; Charcot foot due to diabetes mellitus E11.610 and Type 2 diabetes mellitus with hyperglycemia E11.65 [facility] N[place] [address] [id number] [place] [address] Mar [place] [address] [place] [id number], [place] [address] Feb, [facility]ITAL[facility] [place] [address] [id number] [place] [address] Feb Type 2 diabetes mellitus with hyperglycemia E11.65 ; Essential hypertension I10 ; exterminator termite current use of insulin Z79.4 ; Morbid obesity due to excess calories E66.01 ; Charcot foot due to diabetes mellitus E11.610 and Depression, unspecified depression type F32.[address] [facility]ITALTr[facility] [place] [address] [id number] [place] [address] [facility]ITAL[facility] [place] [address] [id number] [place] [address] [address] [facility] [place] [address] [id number] [place] [address] Jan [place] [address] [facility] [id number] [place] [address] Jan, [facility] [address]ITAL[facility] [place] [address] [id number] [place] [address] Dec Charcot foot due to diabetes mellitus E11.[address] [facility]ITALTr[facility] Sam [place] [address] [id number] [place] [address] [facility]ITAL[facility] [place] [address] [id number] [place] [address] November Type 2 diabetes mellitus with hyperglycemia E11.65 ; 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 and Charcot foot due to diabetes mellitus E11.[address] [facility]ITALK [place] [address] [id number] [place] [address] November Bronchitis J[address] [facility]IT[facility] [place] [address] [id number] [place] [address] Oct Cellulitis of right lower extremity L03.115 and Charcot foot due to diabetes mellitus E11.[address] [facility]ITALK [place] [address] [id number] [place] [address] Sep [facility] [place] [address] [facility] [id number], [place] [address] Sep, [facility] N[place] [address] [id number] [place] [address] Sep Bronchitis J[address] [facility] GARCIA [facility] [id number] [place] [address] Sep, [facility] [place] [address] [id number] [place] [address] Sep Bronchitis J[address] [facility] [place] [address] [id number] [place] [address] Sep Type 2 diabetes mellitus with hyperglycemia E11.[address] [facility] [place] [address] [id number] [place] [address] Sep [place] [address] [place] [address] [id number] [address] Aug, [facility] [address] [place] [address] [id number] [place] [address] Aug Type 2 diabetes mellitus with hyperglycemia E11.65 ; Depression, unspecified depression type F32.9 ; Charcot foot due to diabetes mellitus E11.610 and Encounter for immunization Z23 [facility] [facility] [place] [address] [id number] [place] [address] Aug [facility] [place] [address] [id number] [place] [address] Jul Type 2 diabetes mellitus with hyperglycemia E11.65 ; exterminator termite current use of insulin Z79.4 ; Morbid obesity due to excess calories E66.01 and Charcot foot due to diabetes mellitus E11.610 [facility] N[place] [address] [id number] [place] [address] Jun Type 2 diabetes mellitus with hyperglycemia E11.65 ; 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 ; Morbid obesity due to excess calories E66.01 ; Charcot foot due to diabetes mellitus E11.610 and Encounter for immunization Z23 [facility] [place] [address] [id number] [place] [address] Jun, [facility] [place] [address] [facility] [id number] [place] [address] Jun, [facility] [place] [address] [id number] [place] [address] Jun Fever in other diseases R50.81 [facility] N[place] [address] [id number] [place] [address] May [facility] [place] [address] [id number] [place] [address] May [facility] [place] [address] [id number] [place] [address] May Type 2 diabetes mellitus with hyperglycemia E11.65 [facility] [place] [address] [id number] [place] [address] May Type 2 diabetes mellitus with hyperglycemia [...]
--- OUTSIDE RECORDS SUMMARY | 2018-06-05 14:43 | XMS REPORT ---
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
--- OUTSIDE RECORDS SUMMARY | 2018-06-05 14:43 | XMS REPORT ---
Author Author CLAUDIA ARCHER [facility] [place] Address [address] [place] [address] Care Team Providers Care Glove Boarder Name Role Phone CLAUDIA ARCHER Unavailable PROBLEMS Type Condition ICD9-CM Code HHX47-KQ Code Onset Dates Condition Status SNOMED Code Problem Depression, unspecified depression type F32.9 Active 30749680 Problem BMI 40.0-44.9, adult Z68.41 Active 366681613 Problem Essential hypertension I10 Active 41967517 Problem rn long term care current use of insulin Z79.4 Active 396019753 Problem Charcot foot due to diabetes mellitus E11.610 Active 39189305 Problem Morbid obesity due to excess calories E66.01 Active 508756684 Problem Type 2 diabetes mellitus with hyperglycemia E11.65 Active 80348023 ALLERGIES No Information ENCOUNTERS Encounter Location Date Diagnosis [facility] [address] [id number] [place] [address] November [facility] [address] [id number] [place] [address] 17 Oct Charcot foot due to diabetes mellitus E11.610 [facility] [address] [id number] [place] [address] 28 Sep Type 2 diabetes mellitus with hyperglycemia E11.65 [facility] [address] [id number] [place] [address] 15 Sep Charcot foot due to diabetes mellitus E11.610 [facility] [address] [id number] [place] [address] Sep [facility] [address] [id number] [place] [address] Sep [facility] [address] [id number] [place] [address] 08 Sep Scrotal swelling N50.89 ; Fungal infection of the groin B35.6 and BMI 50.0-59.9, adult Z68.43 [facility] [place] [address] [id number] [place] [address] Sep Scrotal swelling N50.89 [facility] [place] [address] [id number] [place] [address] Sep Scrotal swelling N50.89 [facility] [place] [address] [id number] [place] [address] Aug Scrotal swelling N50.89 [facility] [place] [address] [id number] [place] [address] Aug Charcot foot due to diabetes mellitus E11.610 [facility] [place] [address] [id number] [place] [address] Aug Type 2 diabetes mellitus with hyperglycemia E11.65 ; rn long term care current use of insulin Z79.4 ; Morbid obesity due to excess calories E66.01 ; Charcot foot due to diabetes mellitus E11.610 ; Depression, unspecified depression type F32.9 and Essential hypertension I10 [place] [address] [place] [id number] [address] Aug, [facility] [place] [address] [id number] [place] [address] Aug Scrotal swelling N50.89 and Depression, unspecified depression type F32.9 [place] [address] [place] [id number] [address] Jul, [facility] [address] [facility] [id number], [place] [address] Jul, [facility] G[facility] [id number] [place] [address] Jul, [facility] [place] [address] [id number] [place] [address] Jul Scrotal swelling N50.89 [facility] [place] [address] [id number] [place] [address] Jul [facility] [place] [address] [id number] [place] [address] Jul Scrotal swelling N50.89 [facility] [place] [address] [id number] [place] [address] Jul Charcot foot due to diabetes mellitus E11.610 [facility] [place] [address] [id number] [place] [address] Jul Depression, unspecified depression type F32.9 and BMI 50.0-59.9, adult Z68.43 [facility] [place] [address] [id number] [place] [address] Jun Depression, unspecified depression type F32.9 ; Charcot foot due to diabetes mellitus E11.610 and BMI 50.0-59.9, adult Z68.43 [facility] [place] [address] [id number] [place] [address] Jun [facility]OSPITALShut DownK [place] [address] [id number] [place] [address] 09 May BMI 40.0-44.9, adult Z68.41 ; Type 2 diabetes mellitus with hyperglycemia E11.65 ; Essential hypertension I10 ; Depression, unspecified depression type F32.9 ; Charcot foot due to diabetes mellitus E11.610 and rn long term care current use of insulin Z79.4 [facility] [place] [address] [id number] [place] [address] May [facility]ITALShut DownK [place] [address] [id number] [place] [address] May [facility] [place] [address] [id number] [place] [address] May [facility] [place] [address] [id number] [place] [address] Apr [facility] [address] [facility] [id number] [place] [address] Apr, [facility] [place] [address] [id number] [place] [address] Apr [facility] [place] [address] [id number] [place] [address] Apr Type 2 diabetes mellitus with hyperglycemia E11.65 and Depression, unspecified depression type F32.9 [facility] [place] [address] [id number] [place] [address] Apr Encounter for immunization Z23 ; Type 2 diabetes mellitus with hyperglycemia E11.65 ; MCC current use of insulin Z79.4 ; Charcot foot due to diabetes mellitus E11.610 and Essential hypertension I10 [facility]ITALGl[facility] [place] [address] [id number] [place] [address] Mar Essential hypertension I10 ; Charcot foot due to diabetes mellitus E11.610 and Type 2 diabetes mellitus with hyperglycemia E11.65 [facility] [place] [address] [id number] [place] [address] Mar [place] [address] [place] [id number] [place] [address] Feb, [facility]ITALorat[facility] [place] [address] [id number] [place] [address] Feb Type 2 diabetes mellitus with hyperglycemia E11.65 ; Essential hypertension I10 ; rn long term care current use of insulin Z79.4 ; Morbid obesity due to excess calories E66.01 ; Charcot foot due to diabetes mellitus E11.610 and Depression, unspecified depression type F32.9 [facility]ITALGl[facility] [place] [address] [id number] [place] [address] Jan [facility]ITALorat[facility] [place] [address] [id number] [place] [address] Jan [facility] [place] [address] [id number] [place] [address] Jan [place] [address] [facility] [id number] [place] [address] Jan, [facility] [place] [address] [id number] [place] [address] Dec Charcot foot due to diabetes mellitus E11.610 [facility] [place] [address] [id number] [place] [address] November [facility] [place] [address] [id number] [place] [address] November Type 2 diabetes mellitus with hyperglycemia E11.65 ; MCC current use of insulin Z79.4 and Charcot foot due to diabetes mellitus E11.610 [facility] [place] [address] [id number] [place] [address] November Bronchitis J40 [facility] [place] [address] [id number] [place] [address] Oct Cellulitis of right lower extremity L03.115 and Charcot foot due to diabetes mellitus E11.610 [facility] [place] [address] [id number] [place] [address] Sep [facility] [address] [facility] [id number] [place] [address] Sep, [facility] [place] [address] [id number] [place] [address] Sep Bronchitis J40 [facility]ALK [address] [id number] [place] [address] Sep, [facility]ALSELuz [place] [address] [id number] [place] [address] Sep Bronchitis J40 [facility] [place] [address] [id number] [place] [address] Sep Type 2 diabetes mellitus with hyperglycemia E11.65 [facility] [place] [address] [id number] [place] [address] Sep [facility] [address] [facility] [id number] [place] [address] Aug, [facility]ALSELuz [place] [address] [id number] [place] [address] Aug Type 2 diabetes mellitus with hyperglycemia E11.65 ; Depression, unspecified depression type F32.9 ; Charcot foot due to diabetes mellitus E11.610 and Encounter for immunization Z23 [facility] [place] [address] [id number] [place] [address] Aug [facility] [place] [address] [id number] [place] [address] Jul Type 2 diabetes mellitus with hyperglycemia E11.65 ; MCC current use of insulin Z79.4 ; Morbid obesity due to excess calories E66.01 and Charcot foot due to diabetes mellitus E11.610 [facility] [place] [address] [id number] [place] [address] Jun Type 2 diabetes mellitus with hyperglycemia E11.65 ; rn long term care current use of insulin Z79.4 ; Morbid obesity due to excess calories E66.01 ; Charcot foot due to diabetes mellitus E11.610 and Encounter for immunization Z23 [place] [address]005[address] [address] Jun, [place] [address] [place] [id number] [address] Jun, [facility] [place] [address] [id number] [place] [address] Jun Fever in other diseases R50.81 [facility] [place] [address] [id number] [place] [address] May [facility] [place] [address] [id number] [place] [address] May [facility] [place] [address] [id number] [place] [address] May Type 2 diabetes mellitus with hyperglycemia E11.65 [facility] [place] [address] [id number] [place] [address] May Type 2 diabetes mellitus with hyperglycemia E11.65 ; MCC current use of insulin Z79.4 ; Morbid [...]
--- OUTSIDE RECORDS SUMMARY | 2018-06-05 14:44 | XMS REPORT ---
Author Author CLAUDIA ARCHER [facility] Address [address] [place] [address] Care Team Providers Care Nurse Specialist Name Role Phone CLAUDIA ARCHER Unavailable PROBLEMS Type Condition ICD9-CM Code MVQ32-MZ Code Onset Dates Condition Status SNOMED Code Problem Charcot foot due to diabetes mellitus E11.610 Active 69987807 Problem Depression, unspecified depression type F32.9 Active 19360048 Problem Neuropathy involving both lower extremities G57.93 Active 459875590 Problem BMI 40.0-44.9, adult Z68.41 Active 548210661 Problem Type 2 diabetes mellitus with hyperglycemia E11.65 Active 81832495 Problem MCC current use of insulin Z79.4 Active 567290641 Problem Essential hypertension I10 Active 32410162 Problem Morbid obesity due to excess calories E66.01 Active 525982360 ALLERGIES No Information ENCOUNTERS Encounter Location Date Diagnosis [employer] [address] [id number] [place] [address] Dec [facility] [address] [id number] [place] [address] November [facility] [address] [id number] [place] [address] November [facility] [address] [id number] [place] [address] November [facility] [address] [id number] [place] [address] November [facility] [address] [id number] [place] [address] November Type 2 diabetes mellitus with hyperglycemia E11.65 ; intermediate manager current use of insulin Z79.4 ; Morbid obesity due to excess calories E66.01 ; Charcot foot due to diabetes mellitus E11.610 ; Neuropathy involving both lower extremities G57.93 ; BMI 50.0-59.9, adult Z68.43 ; Depression, unspecified depression type F32.9 and Scrotal swelling N50.89 [facility] [place] [address] [id number] [place] [address] November [facility] [place] [address] [id number] [place] [address] Oct Charcot foot due to diabetes mellitus E11.610 [facility] [place] [address] [id number] [place] [address] Sep Type 2 diabetes mellitus with hyperglycemia E11.65 [facility] [place] [address] [id number] [place] [address] Sep Charcot foot due to diabetes mellitus E11.610 [facility] [place] [address] [id number] [place] [address] Sep [facility] [place] [address] [id number] [place] [address] Sep [facility] [place] [address] [id number] [place] [address] Sep Scrotal swelling N50.89 ; Fungal infection of the groin B35.6 and BMI 50.0-59.9, adult Z68.43 [facility] [place] [address] [id number] [place] [address] Sep Scrotal swelling N50.89 [facility] [place] [address] [id number] [place] [address] Sep Scrotal swelling N50.89 [facility] [place] [address] [id number] [place] [address] Aug Scrotal swelling N50.89 [facility] [place] [address] [id number] [place] [address] Aug Charcot foot due to diabetes mellitus E11.610 [facility] [place] [address] [id number] [place] [address] Aug Type 2 diabetes mellitus with hyperglycemia E11.65 ; intermediate manager current use of insulin Z79.4 ; Morbid obesity due to excess calories E66.01 ; Charcot foot due to diabetes mellitus E11.610 ; Depression, unspecified depression type F32.9 and Essential hypertension I10 [facility] [address] [facility] [id number] [place] [address] Aug, [facility] [place] [address] [id number] [place] [address] Aug Scrotal swelling N50.89 and Depression, unspecified depression type F32.9 [facility] [address] [facility] [id number] [place] [address] Jul, [facility] [address] [facility] [id number] [address] Jul, [facility] [place] [id number] [facility] [address] [id number] [place] [id number] Jul, [facility] [place] [address] [id number] [place] [address] Jul Scrotal swelling N50.89 [facility] [place] [address] [id number] [place] [address] Jul [facility] [place] [address] [id number] [place] [address] Jul Scrotal swelling N50.89 [facility] [place] [address] [id number] [place] [address] Jul Charcot foot due to diabetes mellitus E11.610 [facility] [place] [address] [id number] [place] [address] Jul Depression, unspecified depression type F32.9 and BMI 50.0-59.9, adult Z68.43 [facility] [place] [address] [id number] [place] [address] Jun Depression, unspecified depression type F32.9 ; Charcot foot due to diabetes mellitus E11.610 and BMI 50.0-59.9, adult Z68.43 [facility] [place] [address] [id number] [place] [address] Jun [facility] [place] [address] [id number] [place] [address] May BMI 40.0-44.9, adult Z68.41 ; Type 2 diabetes mellitus with hyperglycemia E11.65 ; Essential hypertension I10 ; Depression, unspecified depression type F32.9 ; Charcot foot due to diabetes mellitus E11.610 and intermediate manager current use of insulin Z79.4 [facility] [place] [address] [id number] [place] [address] May [facility] [place] [address] [id number] [place] [address] May [facility] [place] [address] [id number] [place] [address] May [facility] [place] [address] [id number] [place] [address] Apr [place] [address] [facility] [id number] [place] [address] Apr, [facility] [place] [address] [id number] [place] [address] Apr [facility] [place] [address] [id number] [place] [address] Apr Type 2 diabetes mellitus with hyperglycemia E11.65 and Depression, unspecified depression type F32.9 [facility] [place] [address] [id number] [place] [address] Apr Encounter for immunization Z23 ; Type 2 diabetes mellitus with hyperglycemia E11.65 ; MCC current use of insulin Z79.4 ; Charcot foot due to diabetes mellitus E11.610 and Essential hypertension I10 [facility] [place] [address] [id number] [place] [address] Mar Essential hypertension I10 ; Charcot foot due to diabetes mellitus E11.610 and Type 2 diabetes mellitus with hyperglycemia E11.65 [facility] [place] [address] [id number] [place] [address] Mar [place] [address] [facility] [id number] [place] [address] Feb, [facility] [place] [address] [id number] [place] [address] Feb Type 2 diabetes mellitus with hyperglycemia E11.65 ; Essential hypertension I10 ; intermediate manager current use of insulin Z79.4 ; Morbid obesity due to excess calories E66.01 ; Charcot foot due to diabetes mellitus E11.610 and Depression, unspecified depression type F32.9 [facility] [place] [address] [id number] [place] [address] Jan [facility] [place] [address] [id number] [place] [address] Jan [facility] [place] [address] [id number] [place] [address] Jan [facility] [address] [facility] [id number] [place] [address] Jan, [facility] [place] [address] [id number] [place] [address] Dec Charcot foot due to diabetes mellitus E11.610 [facility] [place] [address] [id number] [place] [address] November [facility] [place] [address] [id number] [place] [address] November Type 2 diabetes mellitus with hyperglycemia E11.65 ; intermediate manager current use of insulin Z79.4 and Charcot foot due to diabetes mellitus E11.610 [facility] [place] [address] [id number] [place] [address] November Bronchitis J40 [facility] [place] [address] [id number] [place] [address] Oct Cellulitis of right lower extremity L03.115 and Charcot foot due to diabetes mellitus E11.610 [facility] [place] [address] [id number] [place] [address] Sep [facility] [address] [facility] [id number] [place] [address] Sep, [facility] [place] [address] [id number] [place] [address] 14 Sep Bronchitis J40 [facility] [address] [id number] [place] [address] 08 Sep, 2016 [facility] [place] [address] [id number] [place] [address] Sep Bronchitis J40 [facility] [place] [address] [id number] [place] [address] Sep Type 2 diabetes mellitus with hyperglycemia E11.65 [facility] [place] [address] [id number] [place] [address] Sep [facility] [address] [place] [id number] [address] Aug, [facility] [place] [address] [id number] [place] [address] Aug Type 2 diabetes mellitus with hyperglycemia E11.65 ; Depression, unspecified depression type F32.9 ; Charcot foot due to diabetes mellitus E11.610 and Encounter for immunization Z23 [facility] [place] [address] [id number] [place] [address] Aug [facility] [place] [address] [id number] [place] [address] Jul Type 2 diabetes mellitus with hyperglycemia E11.65 ; intermediate manager current use of insulin Z79.4 ; Morbid obesity due to excess calories E66.01 and Charcot foot due to diabetes mellitus E11.610 [facility] [place] [address] [id number] [place] [address] Jun Type 2 diabetes mellitus with hyperglycemia E11.65 ; MCC current use of insulin Z79.4 ; Morbid obesity due to excess calories E66.01 ; Charcot foot due to diabetes mellitus E11.610 and Encounter for immunization Z23 [facility] [address] [place] [id number] [place] [address] Jun, [facility] [address] [place] [id number] [address] Jun, [facility] [place] [address] [id number] [place] [address] Jun Fever in other diseases R50.81 [facility] [address] [id number] [place] [address] May [facility] [place] [address] [id number] [place] [address] May [facility] [employer] [address] [id number] [place] [address] May Type 2 diabetes mellitus with hyperglycemia E11.65 [facility] [employer] [address] [id number] [place] [address] 10 May Type 2 diabetes mellitus with hyperglycemia E11.65 ; intermediate manager current use of insulin Z79.4 ; [...]
--- OUTSIDE RECORDS SUMMARY | 2018-06-05 14:44 | XMS REPORT ---
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 Active 317576365 Problem Charcot foot due to diabetes mellitus E11.610 Active 95939708 Problem Morbid obesity due to excess calories E66.01 Active 844656836 Problem Type 2 diabetes mellitus with hyperglycemia E11.65 Active 25776663 ALLERGIES No Information ENCOUNTERS Encounter Location Date Diagnosis [facility] [address] [id number] [place] [address] 15 Sep Charcot foot due to diabetes mellitus E11.610 [facility] [address] [id number] [place] [address] 15 Sep [facility] [address] [id number] [place] [address] Sep [facility] [address] [id number] [place] [address] 08 Sep Scrotal swelling N50.89 ; Fungal infection of the groin B35.6 and BMI 50.0-59.9, adult Z68.43 [facility] [address] [id number] [place] [address] 05 Sep Scrotal swelling N50.89 [facility] [address] [id number] [place] [address] 02 Sep Scrotal swelling N50.89 [facility] [id number] [place] [address] Aug Scrotal swelling N50.89 [facility] [place] [address] [id number] [place] [address] 14 Aug Charcot foot due to diabetes mellitus E11.610 [facility] [place] [address] [id number] [place] [address] 09 Aug Type 2 diabetes mellitus with hyperglycemia E11.65 ; MCC current use of insulin Z79.4 ; Morbid obesity due to excess calories E66.01 ; Charcot foot due to diabetes mellitus E11.610 ; Depression, unspecified depression type F32.9 and Essential hypertension I10 [place] [address] [place] [id number] [address] Aug, [facility] [place] [address] [id number] [place] [address] Aug Scrotal swelling N50.89 and Depression, unspecified depression type F32.9 [place] [address] [place] [id number] [address] Jul, [place] [address] [facility] [id number] [address] Jul, [facility] [address] [id number] [place] [address] Jul, [facility] [place] [address] [id number] [place] [address] Jul Scrotal swelling N50.89 [facility] [place] [address] [id number] [place] [address] Jul [facility] [place] [address] [id number] [place] [address] Jul Scrotal swelling N50.89 [facility] [place] [address] [id number] [place] [address] Jul Charcot foot due to diabetes mellitus E11.610 [facility] [place] [address] [id number] [place] [address] Jul Depression, unspecified depression type F32.9 and BMI 50.0-59.9, adult Z68.43 [facility] [place] [address] [id number] [place] [address] Jun Depression, unspecified depression type F32.9 ; Charcot foot due to diabetes mellitus E11.610 and BMI 50.0-59.9, adult Z68.43 [facility] [place] [address] [id number] [place] [address] Jun [facility] [place] [address] [id number] [place] [address] May BMI 40.0-44.9, adult Z68.41 ; Type 2 diabetes mellitus with hyperglycemia E11.65 ; Essential hypertension I10 ; Depression, unspecified depression type F32.9 ; Charcot foot due to diabetes mellitus E11.610 and 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.4 [facility] [place] [address] [id number] [place] [address] May [facility] [place] [address] [id number] [place] [address] May [facility] [place] [address] [id number] [place] [address] May [facility] [place] [address] [id number] [place] [address] Apr [facility] [employer] [facility] [address] [facility] [id number] [place] [address] Apr, [facility] [place] [address] [id number] [place] [address] Apr [facility]ISONVILLESETianjin [employer] [place] [address] [id number] [place] [address] Apr Type 2 diabetes mellitus with hyperglycemia E11.65 and Depression, unspecified depression type F32.9 [facility] [place] [address] [id number] [place] [address] Apr Encounter for immunization Z23 ; Type 2 diabetes mellitus with hyperglycemia E11.65 ; MCC current use of insulin Z79.4 ; Charcot foot due to diabetes mellitus E11.610 and Essential hypertension I10 [facility] [place] [address] [id number] [place] [address] Mar Essential hypertension I10 ; Charcot foot due to diabetes mellitus E11.610 and Type 2 diabetes mellitus with hyperglycemia E11.65 [facility] [place] [address] [id number] [place] [address] Mar [place] [address] [place] [id number] [address] Feb, [facility] [employer] [place] [address] [id number] [place] [address] Feb Type 2 diabetes mellitus with hyperglycemia E11.65 ; Essential hypertension I10 ; MCC current use of insulin Z79.4 ; Morbid obesity due to excess calories E66.01 ; Charcot foot due to diabetes mellitus E11.610 and Depression, unspecified depression type F32.9 [facility]OT[facility] [employer] [place] [address] [id number] [place] [address] Jan [facility] [employer] [place] [address] [id number] [place] [address] Jan [facility] [place] [address] [id number] [place] [address] Jan [place] [address] [facility] [id number] [place] [address] Jan, [facility]ILLEAll Access [employer]comLuz [place] [address] [id number] [place] [address] Dec Charcot foot due to diabetes mellitus E11.610 [facility] [place] [address] [id number] [place] [address] November [facility]EL[facility] [place] [address] [id number] [place] [address] November Type 2 diabetes mellitus with hyperglycemia E11.65 ; MCC current use of insulin Z79.4 and Charcot foot due to diabetes mellitus E11.610 [facility] [place] [address] [id number] [place] [address] November Bronchitis J40 [facility] [place] [address] [id number] [place] [address] Oct Cellulitis of right lower extremity L03.115 and Charcot foot due to diabetes mellitus E11.610 [facility] [place] [address] [id number] [place] [address] Sep [facility] [address] [facility] [id number] [place] [address] Sep, [facility]ESELuz [place] [address] [id number] [place] [address] Sep Bronchitis J40 [facility]EDOLuz [address]ARCIABRAND[place] [address] [id number] [place] [id number] 08 Sep, 2016 [facility]ILLESELuz [place] [address] [id number] [place] [address] Sep Bronchitis J40 [facility] [place] [address] [id number] [place] [address] Sep Type 2 diabetes mellitus with hyperglycemia E11.65 [facility]ISON[facility]ILLESELuz [place] [address] [id number] [place] [address] Sep [facility] [address] [facility] [id number] [address] Aug, [facility]LEAll Access TelecomLuz [place] [address] [id number] [place] [address] Aug Type 2 diabetes mellitus with hyperglycemia E11.65 ; Depression, unspecified depression type F32.9 ; Charcot foot due to diabetes mellitus E11.610 and Encounter for immunization Z23 [facility] [place] [address] [id number] [place] [address] Aug [facility] [place] [address] [id number] [place] [address] Jul Type 2 diabetes mellitus with hyperglycemia E11.65 ; 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.4 ; Morbid obesity due to excess calories E66.01 and Charcot foot due to diabetes mellitus E11.610 [facility] [place] [address] [id number] [place] [address] Jun Type 2 diabetes mellitus with hyperglycemia E11.65 ; 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.4 ; Morbid obesity due to excess calories E66.01 ; Charcot foot due to diabetes mellitus E11.610 and Encounter for immunization Z23 [facility] [address] [facility] [id number] [place] [address] Jun, [facility] [address] [facility] [id number] [place] [address] Jun, [facility] [place] [address] [id number] [place] [address] Jun Fever in other diseases R50.81 [facility] [place] [address] [id number] [place] [address] May [facility] [address] [id number] [place] [address] May [facility] [place] [address] [id number] [place] [address] May Type 2 diabetes mellitus with hyperglycemia E11.65 [facility] [place] [address] [id number] [place] [address] May Type 2 diabetes mellitus with hyperglycemia E11.65 ; MCC current use of insulin Z79.4 ; Morbid obesity due to excess calories E66.01 ; Charcot foot due to diabetes mellitus E11.610 and Depression, unspecified depression type F32.9 IMMUNIZATIONS No Known Immunizations SOCIAL HISTORY Never Assessed REASON FOR VISIT med refill percocet PLAN OF CARE VITAL SIGNS MEDICATIONS Medication [...]
--- OUTSIDE RECORDS SUMMARY | 2018-06-05 14:44 | XMS REPORT ---
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 576594877 Problem Charcot foot due to diabetes mellitus E11.610 Active 02548883 Problem Depression, unspecified depression type F32.9 Active 59369566 ALLERGIES No Known Allergies SOCIAL HISTORY Never Assessed PLAN OF CARE Activity Details Follow Up prn Reason: VITAL SIGNS Height 74 in 2016-10-10 Weight 414.1 lbs 2016-10-10 Temperature 97,.1 degrees Fahrenheit 2016-10-10 Heart Rate 98 bpm 2016-10-10 Respiratory Rate 20 2016-10-10 BMI 53.16 kg/m2 2016-10-10 Blood pressure systolic 160 mmHg 2016-10-10 Blood pressure diastolic 88 mmHg 2016-10-10 MEDICATIONS Medication Instructions Dosage Frequency Start Date End Date Duration Status Percocet 10-325 MG Orally every 6 hrs 1 tablet as needed 6h 28 days Active Multivitamin Men Orally PRN 1 tablet Active Ibuprofen 200 MG Orally PRN 4 tab Active Flonase Allergy Relief 50 MCG/ACT Nasally Once a day 1 spray in each nostril 24h Jun, 30 day(s) Active Atorvastatin Calcium 80 MG Orally Once a day 1/2 tablet 24h May, 90 days Active Trintellix 20 mg Orally Once a day 1 tablet 24h 07 Aug, 2016 90 days Active Bydureon 2 MG Subcutaneous weekly 2 mg Active Toujeo SoloStar 300 UNIT/ML Subcutaneous Once a day 75 units 24h 90 days Active Lisinopril 10 mg Orally Once a day as directed 24h Active MetFORMIN HCl ER 500 MG Orally 2 times a day 2 tablets 12h 30 days Active NovoLog 100 UNIT/ML Subcutaneous 3 times a day 50 unit at meals 8h 90 days Active Levaquin 750 MG Orally Once a day 1 tablet 24h Oct, Oct, 10 day(s) Active Percocet 10-325 MG Orally every 6 hrs prn 1 tablet as needed Active Pen [place] 32G X 4 MM subcutaneously 3 times [...]
--- OUTSIDE RECORDS SUMMARY | 2018-06-05 14:44 | XMS REPORT ---
Author Author [facility]UD[facility] Address [address] [place] [address] Care Team Providers Care Vacuum Bottle Assembler Name Role Phone CLAUDIA ARCHER Unavailable PROBLEMS Type Condition ICD9-CM Code BFM63-OL Code Onset Dates Condition Status SNOMED Code Problem Charcot foot due to diabetes mellitus E11.610 Active 24635751 Problem Depression, unspecified depression type F32.9 Active 17700669 Problem Neuropathy involving both lower extremities G57.93 Active 201505931 Problem BMI 40.0-44.9, adult Z68.41 Active 253029086 Problem Type 2 diabetes mellitus with hyperglycemia E11.65 Active 24494300 Problem long-term current use of insulin Z79.4 Active 343956751 Problem Essential hypertension I10 Active 30711868 Problem Morbid obesity due to excess calories E66.01 Active 571900676 ALLERGIES No Information ENCOUNTERS Encounter Location Date Diagnosis [facility] [id number] [place] [address] Dec [facility] [address] [id number] [place] [address] [address] [id number] [place] [address] November Type 2 diabetes mellitus with hyperglycemia E11.65 ; long-term current use of insulin Z79.4 ; Morbid obesity due to excess calories E66.01 ; Charcot foot due to diabetes mellitus E11.610 ; Neuropathy involving both lower extremities G57.93 ; BMI 50.0-59.9, adult Z68.43 ; Depression, unspecified depression type F32.9 and Scrotal swelling N50.89 [facility] [address] [id number] [place] [address] November [facility]Donews[facility] [employer] [address] [id number] [place] [address] Oct Charcot foot due to diabetes mellitus E11.610 [facility] [place] [address] [id number] [place] [address] Sep Type 2 diabetes mellitus with hyperglycemia E11.65 [facility] [place] [address] [id number] [place] [address] Sep [facility] [address] [id number] [place] [address] Sep [facility] [address] [id number] [place] [address] Sep Charcot foot due to diabetes mellitus E11.610 [facility] [address] [id number] [place] [address] Sep Scrotal swelling N50.89 ; Fungal infection of the groin B35.6 and BMI 50.0-59.9, adult Z68.43 [facility] [place] [address] [id number] [place] [address] 05 Sep Scrotal swelling N50.89 [facility] [place] [address] [id number] [place] [address] Sep Scrotal swelling N50.89 [facility] [address] [id number] [place] [address] Aug Scrotal swelling N50.89 [facility] [address] [id number] [place] [address] 14 Aug Charcot foot due to diabetes mellitus E11.610 [facility] [place] [address] [id number] [place] [address] 09 Aug Type 2 diabetes mellitus with hyperglycemia E11.65 ; 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.4 ; Morbid obesity due to excess calories E66.01 ; Charcot foot due to diabetes mellitus E11.610 ; Depression, unspecified depression type F32.9 and Essential hypertension I10 [facility] [address] [facility] [id number] [place] [address] 07 Aug, 2017 [facility] [address] [id number] [place] [address] Aug Scrotal swelling N50.89 and Depression, unspecified depression type F32.9 [facility] [address] [facility] [id number] [place] [address] Jul, [facility] [address] [facility] [id number] [place] [address] Jul, [facility] GARCIA[address] [id number] [place] [id number] Jul, [facility] [place] [address] [id number] [place] [address] Jul Scrotal swelling N50.89 [facility] [place] [address] [id number] [place] [address] Jul [facility] [place] [address] [id number] [place] [address] Jul Scrotal swelling N50.89 [facility] [place] [address] [id number] [place] [address] Jul Charcot foot due to diabetes mellitus E11.610 [facility] [place] [address] [id number] [place] [address] Jul Depression, unspecified depression type F32.9 and BMI 50.0-59.9, adult Z68.43 [facility] [place] [address] [id number] [place] [address] Jun Depression, unspecified depression type F32.9 ; Charcot foot due to diabetes mellitus E11.610 and BMI 50.0-59.9, adult Z68.43 [facility] [place] [address] [id number] [place] [address] Jun [facility] [place] [address] [id number] [place] [address] May BMI 40.0-44.9, adult Z68.41 ; Type 2 diabetes mellitus with hyperglycemia E11.65 ; Essential hypertension I10 ; Depression, unspecified depression type F32.9 ; Charcot foot due to diabetes mellitus E11.610 and long-term current use of insulin Z79.4 [facility] [place] [address] [id number] [place] [address] May [facility] [place] [address] [id number] [place] [address] May [facility] [place] [address] [id number] [place] [address] May [facility] [place] [address] [id number] [place] [address] Apr [facility] [address] [facility] [id number] [place] [address] Apr, [facility] [place] [address] [id number] [place] [address] Apr [facility] [place] [address] [id number] [place] [address] Apr Type 2 diabetes mellitus with hyperglycemia E11.65 and Depression, unspecified depression type F32.9 [facility] [place] [address] [id number] [place] [address] Apr Encounter for immunization Z23 ; Type 2 diabetes mellitus with hyperglycemia E11.65 ; long-term current use of insulin Z79.4 ; Charcot foot due to diabetes mellitus E11.610 and Essential hypertension I10 [facility] [place] [address] [id number] [place] [address] Mar Essential hypertension I10 ; Charcot foot due to diabetes mellitus E11.610 and Type 2 diabetes mellitus with hyperglycemia E11.65 [facility] [place] [address] [id number] [place] [address] Mar [facility] [address] [facility] [id number] [place] [address] Feb, [facility] NGH[place] [address] [id number] [place] [address] Feb Type 2 diabetes mellitus with hyperglycemia E11.65 ; Essential hypertension I10 ; long-term current use of insulin Z79.4 ; Morbid obesity due to excess calories E66.01 ; Charcot foot due to diabetes mellitus E11.610 and Depression, unspecified depression type F32.9 [facility] [place] [address] [id number] [place] [address] Jan [facility] [place] [address] [id number] [place] [address] Jan [facility] [place] [address] [id number] [place] [address] Jan [place] [address] [facility] [id number] [place] [address] Jan, [facility] [place] [address] [id number] [place] [address] Dec Charcot foot due to diabetes mellitus E11.610 [facility] [place] [address] [id number] [place] [address] November [facility] [place] [address] [id number] [place] [address] November Type 2 diabetes mellitus with hyperglycemia E11.65 ; 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.4 and Charcot foot due to diabetes mellitus E11.610 [facility] [place] [address] [id number] [place] [address] November Bronchitis J40 [facility] [place] [address] [id number] [place] [address] Oct Cellulitis of right lower extremity L03.115 and Charcot foot due to diabetes mellitus E11.610 [facility] [place] [address] [id number] [place] [address] Sep [facility] [address] [facility] [id number] [place] [address] Sep, [facility] [place] [address] [id number] [place] [address] Sep Bronchitis J40 [facility] [address] [id number] [place] [id number] Sep, [facility] [place] [address] [id number] [place] [address] 07 Mar , 2017 Bronchitis J40 [facility] [place] [address] [id number] [place] [address] Sep Type 2 diabetes mellitus with hyperglycemia E11.65 [facility] NGHIA [address] [id number] [place] [address] Sep [place] [address] [facility] [id number] [place] [address] Aug, [facility] NGHIA [address] [id number] [place] [address] Aug Type 2 diabetes mellitus with hyperglycemia E11.65 ; Depression, unspecified depression type F32.9 ; Charcot foot due to diabetes mellitus E11.610 and Encounter for immunization Z23 [facility] [place] [address] [id number] [place] [address] Aug [facility] [place] [address] [id number] [place] [address] Jul Type 2 diabetes mellitus with hyperglycemia E11.65 ; long-term current use of insulin Z79.4 ; Morbid obesity due to excess calories E66.01 and Charcot foot due to diabetes mellitus E11.610 [facility] NGHIA [address] [id number] [place] [address] Jun Type 2 diabetes mellitus with hyperglycemia E11.65 ; long-term current use of insulin Z79.4 ; Morbid obesity due to excess calories E66.01 ; Charcot foot due to diabetes mellitus E11.610 and Encounter for immunization Z23 [place] [address] [place] [id number] [place] [address] Jun, [place] [address] [place] [id number] [address] Jun, [facility] [place] [address] [id number] [place] [address] Jun Fever in other diseases R50.81 [facility] [place] [address] [id number] [place] [address] May [facility] [place] [address] [id number] [place] [address] May [facility] [address] [id number] [place] [address] May Type 2 diabetes mellitus with hyperglycemia E11.65 [facility] [address] [id number] [place] [address] May Type 2 diabetes mellitus with hyperglycemia E11.65 ; 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
--- OUTSIDE RECORDS SUMMARY | 2018-06-05 14:44 | XMS REPORT | Continuity of Care Document ---
Author Author [facility] Organization [facility] Address Unknown Phone Unavailable Allergies Active Description Code Type Severity Reaction Onset Reported/Identified Relationship to Patient Clinical Status Yes No Known Drug Allergies 65290456 N/A N/A Yes No Known Environmental Allergies 06055443 N/A N/A Yes No Known Food Allergies 40655978 N/A N/A Medications There is no data. 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 Results Test Result Range TSH - 08/18/17 08:52 TSH 3.82 mIU/L 0.40-4.50 CMP - 09/11/17 11:40 GLUCOSE 238 mg/dL 65-99 UREA NITROGEN (BUN) 32 mg/dL 7-25 CREATININE 1.28 mg/dL 0.70-1.33 eGFR NON-AFR. MACEDONIAN 64 mL/min/1.73m2 > OR=60 eGFR 74 mL/min/1.73m2 > OR=60 BUN/CREATININE RATIO 25 (calc) 6-22 SODIUM 141 mmol/L 135-146 POTASSIUM 4.8 mmol/L 3.5-5.3 CHLORIDE 100 mmol/L 98-110 CARBON DIOXIDE 29 mmol/L 20-31 CALCIUM 9.0 mg/dL 8.6-10.3 PROTEIN, TOTAL 7.3 g/dL 6.1-8.1 ALBUMIN 4.0 g/dL 3.6-5.1 GLOBULIN 3.3 g/dL (calc) 1.9-3.7 ALBUMIN/GLOBULIN RATIO 1.2 (calc) 1.0-2.5 BILIRUBIN, TOTAL 0.4 mg/dL 0.2-1.2 ALKALINE PHOSPHATASE 56 U/L 40-115 AST 18 U/L 10-35 ALT 21 U/L 9-46 Encounters ACCT No. Visit Date/Time Discharge Status Pt. Type Provider Facility Loc./Unit Complaint [id number] 11/06/2016 14:33:00 11/06/2016 23:59:59 CLS Outpatient Flori George [id number] 05/18/2016 14:42:39 05/18/2016 23:59:59 CLS Outpatient Simon Wills [id number] 02/16/2016 14:00:01 02/16/2016 23:59:59 CLS Outpatient Todd Topete [id number] 08/17/2015 16:05:29 08/17/2015 23:59:59 CLS Outpatient Todd Topete [id number] 07/11/2015 16:49:54 07/11/2015 23:59:59 CLS Outpatient Adeel Terrazas [id number] 05/04/2015 16:07:48 05/04/2015 23:59:59 CLS Outpatient Todd Topete [id number] 04/20/2015 16:10:14 04/20/2015 23:59:59 CLS Outpatient Todd Topete [id number] 02/16/2015 22:35:02 02/16/2015 23:59:59 CLS Outpatient Robson Samuel [id number] 02/16/2015 21:30:13 02/16/2015 23:59:59 CLS Outpatient Robson Samuel [id number] 06/10/2014 09:49:09 06/10/2014 23:59:59 CLS Outpatient Liss Kirk [id number] 05/29/2014 21:21:23 05/29/2014 23:59:59 CLS Outpatient Simon Wills [id number] 05/29/2014 20:57:00 05/29/2014 23:59:59 CLS Outpatient Simon Wills [id number] 05/13/2014 14:30:02 05/13/2014 23:59:59 CLS Outpatient Hetlinger, Todd [id number] 04/24/2014 15:18:30 04/24/2014 23:59:59 CLS Outpatient Hetlinger, Todd [id number] 03/13/2014 11:21:44 03/13/2014 23:59:59 CLS Outpatient Nunica, Simon [id number] 03/12/2014 17:44:54 03/12/2014 23:59:59 CLS Outpatient Nunica, Simon [id number] 03/12/2014 17:28:27 03/12/2014 23:59:59 CLS Outpatient Nunica, Simon [id number] 03/12/2014 17:18:54 03/12/2014 23:59:59 CLS Outpatient Nunica, Simon [id number] 03/12/2014 17:14:49 03/12/2014 23:59:59 CLS Outpatient Nunica, Simon [id number] 03/12/2014 17:08:34 03/12/2014 23:59:59 CLS Outpatient Nunica, Simon [id number] 03/12/2014 17:05:30 03/12/2014 23:59:59 CLS Outpatient Nunica, Simon [id number] 03/12/2014 16:55:32 03/12/2014 23:59:59 CLS Outpatient Nunica, Simon [id number] 03/12/2014 16:49:46 03/12/2014 23:59:59 CLS Outpatient Nunica, Simon [id number] 03/12/2014 16:32:44 03/12/2014 23:59:59 CLS Outpatient Nunica, Simon [id number] 02/07/2014 11:30:19 02/07/2014 23:59:59 CLS Outpatient Hetlinger Todd [id number] 12/19/2013 12:21:12 12/19/2013 23:59:59 CLS Outpatient Adeel Terrazas [id number] 10/24/2013 15:43:00 10/24/2013 23:59:59 CLS Outpatient HetlingerTodd [id number] 10/23/2013 14:48:52 10/23/2013 23:59:59 CLS Outpatient Adeel Terrazas [id number] 10/11/2013 15:31:12 10/11/2013 23:59:59 CLS Outpatient Robson Samuel [id number] 08/28/2013 19:20:20 08/28/2013 23:59:59 CLS Outpatient Robson Samuel [id number] 07/17/2013 11:44:52 07/17/2013 23:59:59 CLS Outpatient SHRUTI GALINDO [id number] 05/21/2018 09:52:03 Document Registration [id number] 05/16/2018 18:36:40 Document Registration [id number] 05/16/2018 18:36:24 Document Registration [id number] 05/16/2018 13:46:41 Document Registration [id number] 05/16/2018 12:39:49 Document Registration [id number] 05/16/2018 11:21:53 Document Registration [id number] 02/12/2018 10:15:24 Document Registration [id number] 02/06/2018 09:23:01 Document Registration [id number] 01/30/2018 09:12:17 Document Registration [id number] 01/23/2018 10:46:19 Document Registration [id number] 12/21/2017 11:46:05 Document Registration [id number] 12/08/2017 08:59:46 Document Registration [id number] 11/30/2017 14:51:44 Document Registration [id number] 11/23/2017 13:22:43 Document Registration [id number] 11/16/2017 15:00:24 Document Registration [id number] 11/15/2017 08:10:21 Document Registration [id number] 11/07/2017 09:12:27 Document Registration [id number] 10/31/2017 08:27:23 Document Registration [id number] 10/25/2017 08:02:15 Document Registration [id number] 10/17/2017 09:05:38 Document Registration [id number] 10/10/2017 08:20:07 Document Registration [id number] 10/03/2017 08:26:38 Document Registration [id number] 09/26/2017 08:20:48 Document Registration [id number] 09/19/2017 08:50:24 Document Registration [id number] 09/12/2017 08:55:07 Document Registration [id number] 09/05/2017 08:17:53 Document Registration [id number] 08/29/2017 08:17:49 Document Registration [id number] 08/23/2017 08:56:27 Document Registration [id number] 08/15/2017 08:42:05 Document Registration [id number] 08/08/2017 09:11:04 Document Registration [id number] 08/03/2017 11:09:04 Document Registration [id number] 08/03/2017 10:42:03 Document Registration [id number] 08/02/2017 15:19:29 Document Registration [id number] 08/02/2017 10:57:32 Document Registration [id number] 07/27/2017 07:48:48 Document Registration [id number] 07/26/2017 09:25:28 Document Registration [id number] 05/09/2017 08:28:29 Document Registration [id number] 04/25/2017 08:46:20 Document Registration [id number] 04/18/2017 08:40:26 Document Registration [id number] 04/10/2017 10:12:38 Document Registration [id number] 04/03/2017 08:37:50 Document Registration [id number] 03/27/2017 09:00:51 Document Registration [id number] 03/21/2017 08:09:59 Document Registration [id number] 03/15/2017 08:35:33 Document Registration [id number] 03/07/2017 08:35:50 Document Registration [id number] 02/28/2017 08:56:59 Document Registration [id number] 02/21/2017 14:09:29 Document Registration [id number] 05/18/2018 15:56:01 ACT Unknown Rajinder Brown MD [id number] 11/21/2017 08:00:00 11/21/2017 23:59:59 CLAUDIA Raymond [id number] 09/11/2017 11:40:00 Document Registration [id number] 08/18/2017 08:00:00 Document Registration
--- NOTE | 2018-06-05 15:14 | PM&R Post Admission Assessment ---
Post Admission Physician Asses Date seen by provider: Jun 05, 2018 Time seen by provider: 15:00 The preadmission screen agrees with the post admission assessment that the patient is a good candidate for inpatient rehabilitation. The patient will have a comprehensive program of inpatient rehabilitation with a goal of maximizing level of functional independence prior to discharge home with spouse. The patient will have PT/OT ninety minutes per day, each discipline, five days a week for 7 to 10 days for gait, strengthening, conditioning, balance, ADLs, any patient/family/caregiver training as necessary. Speech therapy to do cognitive assessment and treat as indicated. Rehabilitation nursing to assist with bowel, bladder, skin, wound care, medication administration, pain management. Director Regulatory Agency to assist with discharge planning, community reentry. Lovenox subcut for DVT prophylaxis. He appears to be well motivated to participate in three hours of therapy a day. He should be able to tolerate three hours of therapy a day from a medical standpoint. He should benefit from the three hours of therapy a day. He has a reasonable discharge plan, reasonable discharge rehabilitation goals and a supportive family. He has various comorbidities that need to be closely monitored with medications and treatments adjusted on a daily basis as needed. These include: IDDM Diabetic PN HTN recurrent cellulitis of the legs Obesity Probable BRIANA Barriers to discharge for this patient who had been independent prior to this are for him to be modified independent to supervision for ADLs and mobility skills prior to discharge home with [family], so as to lessen the burden of the caregivers. Risks for this patient include: 1. Fall 2. Fracture 3. DVT 4. Pulmonary embolism 5. Wound infection 6. Skin breakdown 7. Contractures 8. Poorly controlled pain 9. Urinary retention 10. UTI 11. Respiratory infection 12. Aspiration [] Estimated Length of Stay: []days Prognosis: Rehab prognosis appears good for goal of discharge home with [family ] modified independent to supervision for ADLs and mobility skills. Date Identified: Jun 05, 2018 Time Identified: 14:30 Action Plan to Resolve CSMI: Transfer meds reviewed General: Alert, Oriented X3, Cooperative, No Acute Distress HEENT: Atraumatic, PERRLA, EOMI, Mucous Memb Moist/[place] Neck: Supple, No JVD Lungs: Clear to Auscultation Heart: Regular Rate Abdomen: Normal Bowel Sounds, Soft, No Tenderness, Other (obese) Extremities: Other (Resolving cellulitis rt leg Lymphedema both legs) Neuro: Other (Decreased sensation both feet Cognition intact Strength fair +/ good- fred legs) Psych/Mental Status: Mental Status NL JUSTUS ODONNELL MD Jun 05, 2018 15:14
--- NOTE | 2018-06-05 15:43 | Physical Therapy Evaluation ---
PT Evaluation-General Medical Diagnosis Admission Date Jun 05, 2018 at 14:11 Medical Diagnosis: acute renal failure Onset Date: May 27, 2018 Therapy Diagnosis Therapy Diagnosis: generalized weakness/debility Height/Weight Height (Feet): 6 Height (Inches): 3.00 Weight (Pounds): 396 Weight (Ounces): 7.0 Precautions Precautions/Isolations: Standard Precautions, Pressure Ulcer Weight Bear Status Right Lower Extremity: Right Full Weight Bearing Left Lower Extremity: Left Full Weight Bearing Referral Physician: Yunior Reason for Referral: Evaluation/Treatment Medical History Pertinent Medical History: DM, HTN Additional Medical History obesity/multiple DM wounds bilateral LE Current History transfer from [place] for continues therapies Reviewed History: Yes Social History Home: Single Level Current Living Status: Spouse Entry Into Home: Level Entry Prior/Core FIM Prior Level of Function Functional [place] Measure 0=Not Assessed/NA 4=Minimal Assistance 1=Total Assistance 5=Supervision or Setup 2=Maximal Assistance 6=Modified [place] 3=Moderate Assistance 7=Complete [place] IRFPAI Quality Coding Scale 6 Independent with activity with or without an assistive device 5 Patient requires set up or clean up by helper. Patient completes activity by themselves 4 Supervision or touching assist (CGA). [place] provide cues , steadying assist 3 The helper provides less than half the effort to complete the activity 2 The helper provides more than half the effort to complete the activity 1 Dependent. The helper does all the effort to complete an activity 7 Patient refused to complete or attempt activity 9 The patient did not perform the activity before the current illness or injury 88 Not attempted due to Medical conditions or safety concerns Functional Abilities and Goals 3. Independent: Patient completed the activities by him/herself, with or without an assistive device, with no assistance from a helper. 2. Needed Some Help: Patient needed partial assistance from another person to complete activities. 1. Dependent: A helper completed the activities for the patient. 8. Unknown: 9. Not Applicable: Bed Mobility: 6 Transfers (B,C,W/C) (FIM): 6 Gait: 6 Stairs: 6 Indoor Mobility (Ambulation): Independent Stairs: Independent Prior Devices Use: None, Other-see list below Prior Device Use: cane PT Evaluation-Current Subjective Patient agrees to PT. No c/o. Pain Numeric Pain Scale: 0-No Pain Location: No Pain Reported Objective Patient Orientation: Normal For Age Problem Solving: Good Attachments: Gonzalez Catheter ROM/Strength ROM Lower Extremities bilateral LE WFL Strenght Lower Extremities 4+/5 grossly bilateral LE all planes Integumentary/Posture Integumentary refer to nursing notes/multiple foot wounds Bladder Incontinence: Gonzalez Cath Posture WFL Neuromuscular (Tone, Coordination, Reflexes) grossly intact Sensory Vision: Functional Hearing: Functional Sensation Right Lower Extremit: Impaired Sensation Left Lower Extremity: Impaired Transfers Functional [place] Measure 0=Not Assessed/NA 4=Minimal Assistance 1=Total Assistance 5=Supervision or Setup 2=Maximal Assistance 6=Modified [place] 3=Moderate Assistance 7=Complete [place] IRFPAI Quality Coding Scale 6 Independent with activity with or without an assistive device 5 Patient requires set up or clean up by helper. Patient completes activity by themselves 4 Supervision or touching assist (CGA). [place] provide cues , steadying assist 3 The helper provides less than half the effort to complete the activity 2 The helper provides more than half the effort to complete the activity 1 Dependent. The helper does all the effort to complete an activity 7 Patient refused to complete or attempt activity 9 The patient did not perform the activity before the current illness or injury 88 Not attempted due to Medical conditions or safety concerns Transfers (B, C, W/C) (FIM): 5 Scootin Rollin Roll Left to Right (QC): 6 Supine to/from Sit: 6 Sit to/from Stand: 5 Sit to Lying (QC): 5 Lying to Sitting/Side of Bed(Q: 6 Sit to Stand (QC): 5 Chair/Amy-aw-Svznx Xfer(QC): 5 Car Transfer (QC): 6 SBA for initial safety concerns Gait Does the Patient Walk?: Yes Mode of Locomotion: Walk Anticipated Mode of Locomotion: Walk Gait (FIM): 5 Distance (FIM): 3=150 ft Walk 10 feet (QC): 5 Walk 50 ft with 2 Turns(QC): 5 Walk 150 ft (QC): 5 Walking 10ft/uneven surface-QC: 5 Distance: 200' x 2 Gait Level of Assist: 5 Gait Assistive Device: FWW Comments/Gait Description steady, reciprocal pattern Wheelchair Training Does the Pt Use a Wheelchair?: No Stairs Stairs (FIM): 5 #of Steps: 12 Level of Assist: 5 1 Step (curb) (QC): 5 4 Steps (QC): 5 12 Steps (QC): 5 Balance Sitting Static: Normal Sitting Dynamic: Normal Standing Static: Normal Standing Dynamic: Normal Assessment/Needs 53 y.o. male, will be seen short term by skilled PT to address functional mobility to ensure safe return to home with spouse. Patient voices desire to return to home at the end of this week. Rehab Potential: Fair Post Rehab Potential-Barriers: compliance PT Seat Coverer Goals Seat Coverer Goals PT Seat Coverer Goals Time Frame: Jun 16, 2018 Transfers (B,C,W/C) (FIM): 6 Sit to Lying (QC): 6 Lying-Sitting on Side/Bed(QC): 6 Sit to Stand (QC): 6 Rollin Roll Left to Right (QC): 6 Chair/Jff-xx-Sudya Xfer(QC): 6 Car Transfer (QC): 6 Does the Patient Walk: Yes Gait (FIM): 6 Gait distance (FIM): 3=150 ft Distance: >200' Walk 10 feet (QC): 6 Walk 10ft-Uneven Surface(QC): 6 Walk 50ft with 2 Turns (QC): 6 Walk 150 ft (QC): 6 Gait Level of Assist: 6 Gait Assistive Device: None, FWW, Cane Single Point Stairs (FIM): 6 # of Steps: 12 1 Step (curb) (QC): 6 4 Steps (QC): 6 12 Steps (QC): 6 Stairs Level Of Assist: 6 Picking up an Object (QC): 6 PT Plan Problem List Problem List: Activity Tolerance Treatment/Plan Treatment Plan: Continue Plan of Care Treatment Plan: Bed Mobility, Concurrent Therapy, Education, Functional Activity Kacey, Functional Strength, Group Therapy, Gait, Safety, Therapeutic Exercise, Transfers Treatment Duration: Jun 16, 2018 Frequency: At least 5 of 7 days/Wk (IRF) Estimated Hrs Per Day: 1.5 hours per day Patient and/or Family Agrees t: Yes Discharge Recommendations Therapy D/C Recommendations: Home w/ Family Support Time/GCodes Time In: 1400 Time Out: 1430 Total Billed Treatment Time: 30 Total Billed Treatment 1 visit EVModC 30 min HELGA VASQUEZ PT Jun 05, 2018 15:42
--- NOTE | 2018-06-05 15:50 | Occupational Therapy Eval ---
OT Evaluation-General/PLF Medical Diagnosis Admission Date Jun 05, 2018 at 14:11 Medical Diagnosis: acute renal failure Onset Date: May 27, 2018 Therapy Diagnosis Therapy Diagnosis: decreased self care skills Height/Weight Height (Feet): 6 Height (Inches): 3.00 Weight (Pounds): 396 Weight (Ounces): 7.0 Precautions Precautions/Isolations: Standard Precautions, Pressure Ulcer Referral Physician: Yunior Medical History Pertinent Medical History: DM, HTN Current History Pt transferred from outside hospital following admission for cellulitis, sepsis , and acute kidney failure. Reviewed History: Yes Social History Home: Single Level Current Living Status: Spouse Entry Into Home: Level Entry ADL-Prior Level of Function Functional [place] Measure 0=Not Assessed/NA 4=Minimal Assistance 1=Total Assistance 5=Supervision or Setup 2=Maximal Assistance 6=Modified [place] 3=Moderate Assistance 7=Complete [place] IRFPAI Quality Coding Scale 6 Independent with activity with or without an assistive device 5 Patient requires set up or clean up by helper. Patient completes activity by themselves 4 Supervision or touching assist (CGA). [place] provide cues , steadying assist 3 The helper provides less than half the effort to complete the activity 2 The helper provides more than half the effort to complete the activity 1 Dependent. The helper does all the effort to complete an activity 7 Patient refused to complete or attempt activity 9 The patient did not perform the activity before the current illness or injury 88 Not attempted due to Medical conditions or safety concerns Functional Abilities and Goals 3. Independent: Patient completed the activities by him/herself, with or without an assistive device, with no assistance from a helper. 2. Needed Some Help: Patient needed partial assistance from another person to complete activities. 1. Dependent: A helper completed the activities for the patient. 8. Unknown: 9. Not Applicable: ADL PLOF Comments Pt reports being independent with self care and mobility. Did not use any assistive devices. Self Care: Independent Functional Cognition: Independent DME/Equipment: Shower Drive Self: Yes OT Current Status Subjective Pt agreeable to therapy. Reports 3/10 pain in right LE. Mental Status/Objective Patient Orientation: Person, Place, Situation Current Glasses/Contacts: Yes (reading) Hearing Aids: No Dentures/Partials: No Hand Dominance: Right Upper Extremity ROM Grossly WFL Upper Extremity Coordination Intact Upper Extremity Sensation Intact per pt report ADL-Treatment ADL-Current Pt sitting in chair, requires assist to don socks. Pt performed gait to restroom with FWW. Transfer to toilet using grab bars for safety. Sit to stand with supervision. Pt completed grooming tasks standing at sink. Pt combed hair and washed face with set up. Good standing balance. Pt does not have any teeth or dentures, declined to complete oral care at this time. Gait to therapy gym with FWW. Pt completed arm bike x10 minutes to increase overall strength and activity tolerance needed for functional task completion. Pt completed task with moderate resistance and steady pace. No rest breaks needed. Pt returned to room, sitting in chair with needs met and spouse present after session. Eating (FIM): 7 (Pt reports managing containers, cutting food, and feeding self without assistance.) Eating (QC): 6 Grooming (FIM): 5 Toilet/Commode Transfer (FIM): 5 Toilet Transfer (QC): 5 Education OT Patient Education: Rehab process Teaching Recipient: Patient Teaching Methods: Discussion Response to Teaching: Verbalize Understanding OT Short Term Goals Short Term Goals 1=Demonstrate adherence to instructed precautions during ADL tasks. 2=Patient will verbalize/demonstrate understanding of assistive devices/ modifications for ADL. 3=Patient will improve strength/tolerance for activity to enable patient to perform ADL's. OT Contact Lens Inspector Goals Custodial Goals Time Frame: Jun 19, 2018 Eating (FIM): 7 Eating (QC): 6 Groomin Oral Hygiene (QC): 6 Bathing(FIM): 6 Shower/Bathe Self (QC): 6 Upper Body Dressing(FIM): 6 Upper Body Dressing (QC): 6 Lower Body Dressing(FIM): 6 Lower Body Dressing (QC): 6 On/Off Footwear (QC): 6 Toileting(FIM): 6 Toileting Hygiene (QC): 6 Toilet/Commode Transfer(FIM): 6 Toilet/Commode Transfer (QC): 6 Shower Transfer(FIM): 6 Additional Goals: 1-Demonstrate ADL Tasks, 2-Verbalize Understanding, 3- ImproveStrength/Kacey 1=Demonstrate adherence to instructed precautions during ADL tasks. 2=Patient will verbalize/demonstrate understanding of assistive devices/ modifications for ADL. 3=Patient will improve strength/tolerance for activity to enable patient to perform ADL's. Goals established to promote increased functional independence and allow safe discharge home OT Education/Plan Problem List/Assessment Assessment: Decreased Activ Tolerance, Decreased UE Strength, Dependent Transfers, Impaired Self-Care Skills Pt to benefit from skilled OT intervention for ADL training, transfers, strengthening, and home safety education to increase level of independence and allow safe discharge home. Discharge Recommendations Plan/Recommendations: Continue POC Treatment Plan/Plan of Care Treatment,Training & Education: Yes Patient would benefit from OT for education, treatment and training to promote independence in ADL's, mobility, safety and/or upper extremity function for ADL' s. Plan of Care: ADL Retraining, Functional Mobility, Group Exercise/Act as Ind, UE Funct Exercise/Act Treatment Duration: Jun 19, 2018 Frequency: Modified Program (IRF) (21/01) Estimated Hrs Per Day: 1.5 hours per day Agreement: Yes Rehab Potential: Fair Time/GCodes Start Time: 14:40 Stop Time: 15:25 Total Time Billed (hr/min): 45 Billed Treatment Time 1 visit, EVM(15minutes), ADL(15minutes), EX(15minutes) NELSY MOSER OT Jun 05, 2018 15:50
--- NOTE | 2018-06-05 16:17 | HISTORY AND PHYSICAL ---
DATE OF SERVICE: 06/05/2018 ADMISSION HISTORY AND PHYSICAL CHIEF COMPLAINT: Difficulty with walking. 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 The patient completed a course of antibiotics and is now referred to inpatient rehabilitation unit at [facility] for ongoing care and therapies. He is currently utilizing Percocet generic p.r.n. for pain and he is a type 1 diabetic on insulin. Currently, he requires assistance for his ADLs and mobility skills. He completed a course of vancomycin and Levaquin for his cellulitis. ID was consulted while at outside hospital for ESBL, positive E. coli and right leg cellulitis associated with fever and this was treated. He has a history of MRSA infection and was [facility] [place], [place]. He has a history of chronic lymphedema and recurrent cellulitis of both legs. Currently, he is receiving topical care to his right leg. He reports numbness in both feet due to his diabetes with diabetic peripheral neuropathy. He currently requires assistance for his ADLs and mobility skills. He had been on dialysis for a while due to acute on chronic renal failure and is currently off dialysis. He is to have a renal panel in three days.Currently he is SBA for transfers and gait with a FWW.He is SBA for toilet transfers. PAST MEDICAL HISTORY: Obesity, diabetes mellitus type 1, diabetic peripheral neuropathy, recurrent cellulitis of the legs associated with lymphedema. PAST SURGICAL HISTORY: He has had revision of circumcision in the past and currently, has bladder management including Gonzalez catheter with apparent stricture with urologist at [place] recommending that the Gonzalez catheter remain in place until seen by an urologist in follow up after discharge from this facility. He is on a carb consistent diet. ALLERGIES: No known medication allergies. FAMILY HISTORY: Noncontributory. SOCIAL HISTORY: Disabled OR nurse, worked at [employer] in [place], [place]. Lives in a one pushpa home with his spouse in [place], [place]. REVIEW OF SYSTEMS: A 10-point review of system is significant for urinary retention, numbness of both feet associated with some pain. MEDICATIONS: 1. Amlodipine 10 mg p.o. daily. 2. Lyrica 75 mg p.o. b.i.d. 3. Amitriptyline 25 mg p.o. at bedtime. 4. Bupropion 150 mg p.o. daily. 5. Generic Percocet 10/325 one tablet p.o. q.6 hours p.r.n. pain. 6. NovoLog insulin 50 units subcu t.i.d. with meals. 7. Insulin glargine 75 units subcu at bedtime. PHYSICAL EXAMINATION: GENERAL: Significant for a male appearing his stated age, alert and oriented, in no acute distress, sitting in chair. VITAL SIGNS: He is afebrile, pulse is 90, blood pressure 147/65, O2 sat of 94% on room air. HEENT: Vision, speech and hearing grossly intact. No oral lesion is noted. NECK: Supple without mass. HEART: Regular rhythm. CHEST: Clear. ABDOMEN: Obese, soft, nontender, bowel sounds present. EXTREMITIES: He has chronic changes of his skin color of right leg more than left with healing cellulitis of the right leg. He has chronic edema. He reports Charcot foot in both feet. There is also history of ethanol abuse. He is having topical care for his right great toe. MUSCULOSKELETAL: He has functional active range of motion of both upper limbs and proximal lower limbs. NEUROLOGIC: Sensation is diminished to touch in both feet. Cognition is grossly intact. Strength is good in both upper limbs 4+/5 both lower limbs. Indwelling Gonzalez catheter to DD. IMPRESSION: 1. General debilitation secondary to cellulitis of right leg with underlying lymphedema, treated. 2. Urethral stricture associated with urinary retention, managed with indwelling Gonzalez catheter. 3. Obesity. 4. Extended-spectrum beta-lactamases urinary tract infection, treated. 5. Hypertension, controlled with medication. 6. Acute kidney injury secondary to acute tubular necrosis requiring dialysis temporarily, now off dialysis. 7. Diabetes mellitus type 1. 8. Diabetic peripheral neuropathy. 9. Probable BRIANA on 02 at HS 10.DVT prophylaxis Lovenox subcut ordered PLAN: The patient will have a comprehensive program of inpatient rehabilitation with goal of maximizing level of functional independence prior to discharge home with spouse. The patient will have PT and OT 90 minutes per day in each discipline 5 days a week with the above goals in mind. Please see post-admission physician evaluation for details of plan of care. Speech therapy to do cognitive assessment and treat as indicated. Rehabilitation nursing to assist with bowel, bladder, skin, wound care, medication administration, pain management. environmental services specialist to assist with discharge planning and community reentry. Consult wound care. I asked Dr. Schaeffer to follow for diabetes mellitus and other medical concerns as needed. Accu-Cheks q.i.d. a.c. and at bedtime.Lovenox subcut for dvt prophylaxis. ESTIMATED LENGTH OF STAY: 7 to 10 days. PROGNOSIS: Rehab prognosis appears good for goal of discharging home with spouse, modified independent to supervision for ADLs and mobility skills. DIET: Carb consistent. CODE STATUS: Full. Job ID: [id number] DocumentID: [id number] Dictated Date: 06/05/2018 15:05:38 Glove Turner And Former Date: 06/05/2018 16:16:41 Dictated By: JUSTUS ODONNELL MD MTDD
[2018-06-05 16:45] VITALS: BP 137/73
[2018-06-05] MEDS ORDERED: inSUlin ASPART (NovoLOG) 1 UNIT/0.01 ML (CHARGE PER UNIT) SC SCH (17:00)
[2018-06-05 17:34] VITALS: BP 144/76
[2018-06-05] MEDS ORDERED: ENOXAPARIN 40 MG/0.4 ML (LOVENOX) SYR SC SCH (19:15)
[2018-06-05] MEDS: PREGABALIN 75 MG (LYRICA) CAP PO SCH (20:11)
[2018-06-05] MEDS: ENOXAPARIN 40 MG/0.4 ML (LOVENOX) SYR SC SCH (20:11)
[2018-06-05] MEDS: oxyCODONE/APAP 10/325MG (PERCOCET 10) TABLET PO PRN (20:11)
[2018-06-05] MEDS: AMITRIPTYLINE 25 MG (ELAVIL) TAB PO SCH (20:11)
[2018-06-05] MEDS ORDERED: MELATONIN 3 MG TABLET ONE (20:23)
[2018-06-05] MEDS: MELATONIN 3 MG TABLET PO SCH (20:26)
[2018-06-05] MEDS ORDERED: inSUlin DETERMIR 1 UNIT/0.01 ML (LEVEMIR) CHARGE PER UNIT SQ SCH (21:00)
[2018-06-06 04:31] VITALS: BP 139/77
[2018-06-06] MEDS: oxyCODONE/APAP 10/325MG (PERCOCET 10) TABLET PO PRN ×2 (05:02→12:23)
[2018-06-06 05:16] LABS: BASOPHILS # (AUTO) 0.1 10^3/uL (0.0-0.1); BASOPHILS % (AUTO) 1 % (0-10); EOSINOPHILS # (AUTO) 0.3 10^3/uL (0.0-0.3); EOSINOPHILS % (AUTO) 6 % (0-10); HEMATOCRIT 32 % (40-54); HEMOGLOBIN 10.1 G/DL (13.3-17.7); LYMPHOCYTES # (AUTO) 1.6 X 10^3 (1.0-4.0); LYMPHOCYTES % (AUTO) 26 % (12-44); MEAN CORPUSCULAR HEMOGLOBIN 27 PG (25-34); MEAN CORPUSCULAR HGB CONC 31 G/DL (32-36); MEAN CORPUSCULAR VOLUME 88 FL (80-99); MEAN PLATELET VOLUME 9.2 FL (7.4-10.4); MONOCYTES # (AUTO) 0.5 X 10^3 (0.0-1.0); MONOCYTES % (AUTO) 8 % (0-12); NEUTROPHILS # (AUTO) 3.7 X 10^3 (1.8-7.8); NEUTROPHILS % (AUTO) 59 % (42-75); PLATELET COUNT 136 10^3/uL (130-400); RED CELL DISTRIBUTION WIDTH 14.9 % (10.0-14.5); WHITE BLOOD COUNT 6.2 10^3/uL (4.3-11.0)
[2018-06-06 05:36] LABS: ALBUMIN 3.2 GM/DL (3.2-4.5); BILIRUBIN,TOTAL 0.6 MG/DL (0.1-1.0); CALCIUM 9.2 MG/DL (8.5-10.1); CREATININE SERUM 2.94 MG/DL (0.60-1.30); POTASSIUM 4.2 MMOL/L (3.6-5.0); TOTAL PROTEIN 8.8 GM/DL (6.4-8.2)
[2018-06-06] MEDS: ENOXAPARIN 40 MG/0.4 ML (LOVENOX) SYR SC SCH ×2 (06:43→20:30)
[2018-06-06 06:47] LABS: EOSINOPHILS % (MANUAL) 5 %; LYMPHOCYTES % (MANUAL) 28 %; MONOCYTES % (MANUAL) 9 %; NEUTROPHILS % (MANUAL) 58 %
[2018-06-06] MEDS: inSUlin ASPART (NovoLOG) 1 UNIT/0.01 ML (CHARGE PER UNIT) SC SCH ×3 (07:14→17:14)
--- NOTE | 2018-06-06 08:18 | Consultation ---
History of Present Illness History of Present Illness Patient Consulted On(abiel/time) 06/06/18 08:13 Time Seen by Provider: 08:13 History of Present Illness Patient has history of cellulitis of legs. Patient noticed had cellulitis right leg. Patient seen by on the third day and sent to [facility]. Lactic acid 4.9. Patient's kidney shutdown. Patient transferred to [facility]. Patient received vancomycin and Levaquin IV. Patient was on dialysis and taken off of dialysis. GFR is 23. Patient has type II diabetes. Patient lost 60 pounds recently. Ration's dose of insulin has been cut down. Previous to this patient was able to get around and took his children to the school. Patient disabled Allergies and Home Medications Allergies Coded Allergies: No Known Drug Allergies (Unverified , 06/05/18) Patient Home Medication List Home Medication List Reviewed: Yes Past Xgempdh-Jglhzc-Aikghu Hx Patient Social History Alcohol Use: Occasionally Uses Recreational Drug Use: No Smoking Status: Never a Smoker Recent Foreign Travel: No Contact w/Someone Who Travel: No Recent Infectious Disease Expo: No Recent Hopitalizations: Yes Immunizations Up To Date PED Vaccines UTD: No Date of Pneumonia Vaccine: Apr 25, 2017 Date of Influenza Vaccine: Apr 09, 2018 Seasonal Allergies Seasonal Allergies: Yes Past Medical History Surgeries: Yes Gallbladder, Orthopedic Respiratory: Yes Sleep Apnea Currently Using CPAP: No (ALTHOUGH IT IS ORDERED) Currently Using BIPAP: No Cardiac: Yes Neurological: No Sexually Transmitted Disease: No HIV/AIDS: No Genitourinary: Yes Bladder Infection, Dialysis Gastrointestinal: Yes Gastroesophageal Reflux, Gall Bladder Disease Musculoskeletal: No Endocrine: Yes Are Your Blood Sugars Over 250: Yes HEENT: No Loss of Vision: Denies Hearing Impairment: Denies Cancer: No Psychosocial: Yes Anxiety, Depression Integumentary: Yes Blood Disorders: No Adverse Reaction/Blood Tranf: No Family Medical History Diabetes mellitus 19 MOTHER G8 SISTER G8 SISTER G8 SISTER Review of Systems-General Constitutional: no symptoms reported EENTM: no symptoms reported Respiratory: no symptoms reported Cardiovascular: no symptoms reported Gastrointestinal: no symptoms reported, other (Lost 60 pounds recently) Genitourinary: other (Urethral restriction has Gonzalez) Physical Exam-General Problems Physical Exam Vital Signs Vital Signs - First Documented 06/05/18 06/05/18 06/05/18 14:57 16:45 21:00 Temp 98.0 Pulse 91 Resp 20 B/P (MAP) 137/73 (94) Pulse Ox 96 O2 Delivery Room Air O2 Flow Rate 2.00 Capillary Refill : General Appearance: WD/WN, obese Eyes: Bilateral Eye Normal Inspection HEENT: normal ENT inspection Neck: non-tender, full range of motion, normal inspection Respiratory: lungs clear, no respiratory distress, no accessory muscle use Cardiovascular: regular rate, rhythm, no murmur Assessment/Plan Assessment/Plan Admission Diagnosis/Plan Debility. History of renal failure. Renal insufficiency. Cellulitis of right leg. Diabetic neuropathy. Lymphedema. History of urethral stricture Admission Status: Inpatient Order (span 2 midnights) Reason for Inpatient Admission: Debility Clinical Quality Measures DVT/VTE Risk/Contraindication: Risk Factor Score Per Nursin RFS Level Per Nursing on Admit: 4+=Very High TANMAY HERNÁNDEZ DO Jun 06, 2018 08:18
[2018-06-06] MEDS: buPROPion SR 150 MG (WELLBUTRIN SR) TAB PO SCH (08:33)
[2018-06-06] MEDS: PREGABALIN 75 MG (LYRICA) CAP PO SCH ×2 (08:34→21:00)
[2018-06-06] MEDS: amLODIPine 10 MG (NORVASC) TAB PO SCH (08:34)
--- NOTE | 2018-06-06 08:53 | Occupational Ther Daily Note ---
OT Current Status-Daily Note Subjective Pt alert, sitting in recliner eating breakfast. No c/o pain. States that he wants to do everything he can to get home. Agrees to therapy. Mental Status/Objective Patient Orientation: Person, Place, Time, Situation Functional [place] Measure 0=Not Assessed/NA 4=Minimal Assistance 1=Total Assistance 5=Supervision or Setup 2=Maximal Assistance 6=Modified [place] 3=Moderate Assistance 7=Complete [place] ADL-Treatment Functional [place] Measure 0=Not Assessed/NA 4=Minimal Assistance 1=Total Assistance 5=Supervision or Setup 2=Maximal Assistance 6=Modified [place] 3=Moderate Assistance 7=Complete [place] IRFPAI Quality Coding Scale 6 Independent with activity with or without an assistive device 5 Patient requires set up or clean up by helper. Patient completes activity by themselves 4 Supervision or touching assist (CGA). [place] provide cues , steadying assist 3 The helper provides less than half the effort to complete the activity 2 The helper provides more than half the effort to complete the activity 1 Dependent. The helper does all the effort to complete an activity 7 Patient refused to complete or attempt activity 9 The patient did not perform the activity before the current illness or injury 88 Not attempted due to Medical conditions or safety concerns Eating (FIM): 7 (Pt able to open packages/containers then use regular utensils to eat.) Eating (QC): 6 Grooming (FIM): 5 (Supervision standing at sink. Holding onto counter to stabilize self.) Oral Hygiene (QC): 4 Bathing (FIM): 5 (Using grabbars, shower bench, hand held shower to complete own bath. SBA in standing while cleansing own buttocks/belia area.) Bathing Location: L Arm, R Arm, L Upper Leg, R Upper Leg, L Lower Leg ( including foot), R Lower Leg (including foot), Chest, Abdomen, Buttocks, Perineal Area Shower/Bathe Self (QC): 4 Upper Body (FIM): 5 (Pt chose clothing from bag and transported to bathroom. Dons/doffs by self.) Upper Body Dressing (QC): 5 Lower Body Dressing (FIM): 4 (Pt chose clothing from bag and transported to bathroom. Dons/doffs pants by self with supervision in standing to hike over hips. Assist at this time to don/doff socks due to dressings.) Lower Body Dressing (QC): 3 Shower Transfer(FIM): 5 (SBA using FWW, grabbars and shower bench.) Pt states that he has compression stocking dressing aid at home that he completes by self. His children will assist when needed. Discussed other sock aides with pt and will educate on using in next treatment. Other Treatment Ambulated with FWW to therapy gym, SBA. UE exercises completed to increase strength and activity tolerance for daily functional task. Arm bike 15 min at 20 duncan resistance, without breaks. Resistive pegs with 2# wt attached to wrists, 50 pegs each UE. 3# hand wt used for 2 shldr exercises and 1 bicep, 3 sets 10 reps each. Pt then ambulated to therapy kitchen and was able to reach and open/close cabinets with no difficulty, stabilizing self with counter. Pt then ambulated to room and transferred into recliner. Nrsg present in room after therapy. Call light/phone in reach. All needs met in room. OT Short Term Goals Short Term Goals 1=Demonstrate adherence to instructed precautions during ADL tasks. 2=Patient will verbalize/demonstrate understanding of assistive devices/ modifications for ADL. 3=Patient will improve strength/tolerance for activity to enable patient to perform ADL's. OT Jail Goals Cake Tester Goals Time Frame: Jun 19, 2018 Eating (FIM): 6 Eating (QC): 6 Groomin Oral Hygiene (QC): 6 Bathing(FIM): 6 Shower/Bathe Self (QC): 6 Upper Body Dressing(FIM): 6 Upper Body Dressing (QC): 6 Lower Body Dressing(FIM): 6 Lower Body Dressing (QC): 6 On/Off Footwear (QC): 6 Toileting(FIM): 7 Toileting Hygiene (QC): 6 Toilet/Commode Transfer(FIM): 6 Toilet/Commode Transfer (QC): 6 Shower Transfer(FIM): 6 Comprehension(FIM): 7 Expression (FIM): 7 Social Interaction(FIM): 7 Problem Solving(FIM): 7 Memory(FIM): 7 Additional Goals: 1-Demonstrate ADL Tasks, 2-Verbalize Understanding, 3- ImproveStrength/Kacey 1=Demonstrate adherence to instructed precautions during ADL tasks. 2=Patient will verbalize/demonstrate understanding of assistive devices/ modifications for ADL. 3=Patient will improve strength/tolerance for activity to enable patient to perform ADL's. OT Education/Plan Problem List/Assessment Pt to benefit from skilled OT intervention for ADL training, transfers, strengthening, and home safety education to increase level of independence and allow safe discharge home. Discharge Recommendations Plan/Recommendations: Continue POC Treatment Plan/Plan of Care Patient would benefit from OT for education, treatment and training to promote independence in ADL's, mobility, safety and/or upper extremity function for ADL' s. Plan of Care: ADL Retraining, Functional Mobility, Group Exercise/Act as Ind, UE Funct Exercise/Act Treatment Duration: Jun 19, 2018 Frequency: Modified Program (IRF) (21/01) Estimated Hrs Per Day: 1.5 hours per day Agreement: Yes Rehab Potential: Fair Time/GCodes Start Time: 07:15 Stop Time: 08:45 Total Time Billed (hr/min): 90 Billed Treatment Time 1 visit-ADL 4 (60 min) EX 2 (30 min) DENNYS MONTOYA Jun 06, 2018 08:53
[2018-06-06] MEDS ORDERED: amLODIPine 5 MG (NORVASC) TAB PO SCH (09:00)
--- NOTE | 2018-06-06 09:01 | ST Cognitive Linguistic Eval ---
Speech Evaluation-General Medical Diagnosis acute renal failure Onset Date: May 27, 2018 Therapy Diagnosis Therapy Diagnosis: Cognitive-communication Precautions Precautions/Isolations: Fall Prevention, Standard Precautions Medical History Pertinent Medical History: DM, HTN Reviewed History: Yes Social History Current Living Status: Spouse Speech PLF-Current Status Prior Level of Function Patient lived at home with family support. Independent for daily tasks. Subjective Patient pleasant and cooperative. Patient able to carry on a complex conversation. Language Eval: Auditory Comprehends Simple Yes/No Ques: Functional Indent/Objects Multiple [place]: Functional Ident/Pics in Multiple [place]: Functional Follows 1-Step Commands: Functional Follows Complex Directions: Functional Follows General Conversations: Functional Language Eval: Verbal Language Completes Spontaneous Greeting: Functional Produces Auto, Serial Info: Functional Imitates Simple Words/Phrases: Functional Word Finding: Functional Requests Basic Needs: Functional States Basic Personal Info: Functional Expresses Complex Ideas: Functional Language Evaluation: Reading Did not access reading. Cognitive Patient Orientation Patient is oriented to self, place, and time. Objective Cognitive Domain Attention: WNL Memory: WNL Problem Solving: Functional Executive Functions: WNL Visuospatial Skills: WNL Objective Formal/Standardized Tests [facility] Cognitive/Communication Results Orientation: 09/09, Memory: Immediate, 3:3, Delayed: 3:3, Organization/Sequencing : 5:5, Comparisons: 5:5 Oral Motor/Speech Production Within Functional Limits Impression Patient exhibits WFL for cognitive skills. Communication/Social Cognition Comprehension: 7 Expression: 7 Social Interaction: 7 Problem Solvin Memory: 7 Speech Patient Assess Expression of Ideas/Wants: Expression (4) Understanding Verbal Content: Understands (4) Brief Interview-Mental Status: Yes Temporal Orientation: Year: Correct (3) Temporal Orientation: Month: Accurate within 5 days(2) Temporal Orientation: Day: Correct (1) Recall : Wear to say "Sock": Yes, no cue required (2) Recall : Color: Yes, no cue required (2) Recall : Bed: Yes, no cue required (2) Memory/Recall Ability: Current season, Location of own room, Staff names and faces, That he or she is in a hsp/hsp unit Speech Short Term Goals Short Term Goals Short Term Goals Patient will demonstrate safety and independence for his return home. Speech Snf Goals Snf Goals Patient will demonstrate abilities for safety upon his return home. Comprehension: 7 Expression: 7 Social Interaction: 7 Problem Solvin Memory: 7 Speech-Plan Patient/Family Goals Patient/Family Goals: Patient will return home with family support. Treatment Plan Speech Therapy Treatment Plan: Discontinue ST, Goals Met Patient is not recommended for skilled ST at this time. Frequency: 1 time per week Estimated Hrs Per Day: .25 hour per day Rehab Potential: Good Pt/Family Agrees to Plan: Yes Safety Risks/Education Teaching Recipient: Patient Teaching Methods: Discussion Response to Teaching: Verbalize Understanding Education Topics Provided: Safety upon his return home. Time Speech Therapy Time In: 08:30 Speech Therapy Time Out: 08:45 Total Billed Time: 15 Billed Treatment Time 1, SPSWAN Mendez Jun 06, 2018 09:01
[2018-06-06] MEDS ORDERED: BUPR150T7 PO (09:21)
[2018-06-06] MEDS ORDERED: INSU100I14 SQ (09:21)
[2018-06-06] MEDS ORDERED: OXYC1TAB12 PO (09:21)
[2018-06-06] MEDS ORDERED: INSU300I SQ (09:21)
[2018-06-06] MEDS ORDERED: LISI40TA PO (09:25)
[2018-06-06] MEDS ORDERED: EXEN2VIA SQ (09:25)
[2018-06-06] MEDS ORDERED: METF-399 PO (09:25)
--- NOTE | 2018-06-06 10:26 | Physical Therapy Daily Note ---
PT Daily Note-Current Subjective Pt sitting in recliner upon arrival. Pt agrees to PT. Pt reports no insurance , here on Financial Assistance and would like to discharge toward end of week. Pain Numeric Pain Scale: 3 Location: Right Location Body Site: Back Pain Description: Ache, Radiating, Tingling Comment: Pt reports Scatic pain on RLE as well as chronic L knee pain. Mental Status Patient Orientation: Person, Place, Time, Situation Transfers Functional [place] Measure 0=Not Assessed/NA 4=Minimal Assistance 1=Total Assistance 5=Supervision or Setup 2=Maximal Assistance 6=Modified [place] 3=Moderate Assistance 7=Complete [place] IRFPAI Quality Coding Scale 6 Independent with activity with or without an assistive device 5 Patient requires set up or clean up by helper. Patient completes activity by themselves 4 Supervision or touching assist (CGA). [place] provide cues , steadying assist 3 The helper provides less than half the effort to complete the activity 2 The helper provides more than half the effort to complete the activity 1 Dependent. The helper does all the effort to complete an activity 7 Patient refused to complete or attempt activity 9 The patient did not perform the activity before the current illness or injury 88 Not attempted due to Medical conditions or safety concerns Scootin Sit to/from Stand: 5 Sit to Stand (QC): 5 Weight Bearing Right Lower Extremity: Right Full Weight Bearing Left Lower Extremity: Left Full Weight Bearing Gait Training Does the Patient Walk?: Yes Distance (FIM): 3=150 ft Distance: 350' Walk 10 feet (QC): 6 Walk 50 ft with 2 Turns(QC): 6 Walk 150 ft (QC): 6 Gait Level of Assist: 6 Gait Persons Needed: 1 Gait Assistive Device: FWW Pt feels comfortable with FWW but states that his home is small and would not be able to use FWW to ambulate. SHINGLE INSPECTOR will try less restrictive AD this afternoon to attempt for ambulation. Wheelchair Training Does the Pt Use a Wheelchair?: No Exercises NuStep Minutes: 7 NuStep Workload: 6 Treatments Pt transfers from recliner and ambulates in hallway using FWW at Mod I. Pt attempts NuStep but is not able to continue pass 7m due to uncomfortable fit due to knees continue to rub on arms during Flexion. Pt discuss complications with wounds due to DM & Neuropathy as well as proper foot care to prevent wounds. Pt ambulates in hallway again before returning to room to rest in recliner. SHINGLE INSPECTOR discusses with SW about pt's progress and request for discharge later this week. SW will discuss further with pt. Pt has all needs met at end of tx. Assessment Current Status: Good Progress Pt continues to be motivated to get home SIMON. Pt is making progress and is high functioning. Will look to possibility of discharge later this week. PT Intermediate Goals Business Development Analyst Goals PT Intermediate Goals Time Frame: Jun 16, 2018 Transfers (B,C,W/C) (FIM): 6 Sit to Lying (QC): 6 Lying-Sitting on Side/Bed(QC): 6 Sit to Stand (QC): 6 Rollin Roll Left to Right (QC): 6 Chair/Rrg-di-Demfd Xfer(QC): 6 Car Transfer (QC): 6 Does the Patient Walk: Yes Gait (FIM): 6 Gait distance (FIM): 3=150 ft Distance: >200' Walk 10 feet (QC): 6 Walk 10ft-Uneven Surface(QC): 6 Walk 50ft with 2 Turns (QC): 6 Walk 150 ft (QC): 6 Gait Level of Assist: 6 Gait Assistive Device: None, FWW, Cane Single Point Stairs (FIM): 6 # of Steps: 12 1 Step (curb) (QC): 6 4 Steps (QC): 6 12 Steps (QC): 6 Stairs Level Of Assist: 6 Picking up an Object (QC): 6 PT Plan Problem List Problem List: Activity Tolerance, Gait Treatment/Plan Treatment Plan: Continue Plan of Care Treatment Plan: Bed Mobility, Concurrent Therapy, Education, Functional Activity Kacey, Functional Strength, Group Therapy, Gait, Safety, Therapeutic Exercise, Transfers Treatment Duration: Jun 16, 2018 Frequency: At least 5 of 7 days/Wk (IRF) Estimated Hrs Per Day: 1.5 hours per day Patient and/or Family Agrees t: Yes Safety Risks/Education Patient Education: Gait Training, Transfer Techniques, W/C Management, Safety Issues Teaching Recipient: Patient Teaching Methods: Discussion Response to Teaching: Verbalize Understanding Time/GCodes Time In: 930 Time Out: 1030 Total Billed Treatment Time: 60 Total Billed Treatment 1, GT (20m), FA x2 (25m) & EX (15m) G Codes Necessary: YARIEL Sabillon SHINGLE INSPECTOR Jun 06, 2018 10:26
--- NOTE | 2018-06-06 15:08 | Occupational Ther Daily Note ---
OT Current Status-Daily Note Subjective Pt lying in bed, alert. Agrees to therapy. No c/o pain at this time. Mental Status/Objective Patient Orientation: Person, Place, Time, Situation Functional [place] Measure 0=Not Assessed/NA 4=Minimal Assistance 1=Total Assistance 5=Supervision or Setup 2=Maximal Assistance 6=Modified [place] 3=Moderate Assistance 7=Complete [place] Attachments: Gonzalez Catheter ADL-Treatment Functional [place] Measure 0=Not Assessed/NA 4=Minimal Assistance 1=Total Assistance 5=Supervision or Setup 2=Maximal Assistance 6=Modified [place] 3=Moderate Assistance 7=Complete [place] IRFPAI Quality Coding Scale 6 Independent with activity with or without an assistive device 5 Patient requires set up or clean up by helper. Patient completes activity by themselves 4 Supervision or touching assist (CGA). [place] provide cues , steadying assist 3 The helper provides less than half the effort to complete the activity 2 The helper provides more than half the effort to complete the activity 1 Dependent. The helper does all the effort to complete an activity 7 Patient refused to complete or attempt activity 9 The patient did not perform the activity before the current illness or injury 88 Not attempted due to Medical conditions or safety concerns Other Treatment Educated pt on different types of sock aides used to don socks and compression stockings. HUSSEIN demonstrated use of wide sock aide and pt was able to verbalize understanding. Discussed where to purchase items for use. Education pt on ARU expectations/description per pt request. after therapy, pt lying in bed with call light/phone in reach. All needs met in room. OT Short Term Goals Short Term Goals 1=Demonstrate adherence to instructed precautions during ADL tasks. 2=Patient will verbalize/demonstrate understanding of assistive devices/ modifications for ADL. 3=Patient will improve strength/tolerance for activity to enable patient to perform ADL's. OT Human Capital Consultant Goals Assisted Goals Time Frame: Jun 19, 2018 Eating (FIM): 6 Eating (QC): 6 Groomin Oral Hygiene (QC): 6 Bathing(FIM): 6 Shower/Bathe Self (QC): 6 Upper Body Dressing(FIM): 6 Upper Body Dressing (QC): 6 Lower Body Dressing(FIM): 6 Lower Body Dressing (QC): 6 On/Off Footwear (QC): 6 Toileting(FIM): 7 Toileting Hygiene (QC): 6 Toilet/Commode Transfer(FIM): 6 Toilet/Commode Transfer (QC): 6 Shower Transfer(FIM): 6 Comprehension(FIM): 7 Expression (FIM): 7 Social Interaction(FIM): 7 Problem Solving(FIM): 7 Memory(FIM): 7 Additional Goals: 1-Demonstrate ADL Tasks, 2-Verbalize Understanding, 3- ImproveStrength/Kacey 1=Demonstrate adherence to instructed precautions during ADL tasks. 2=Patient will verbalize/demonstrate understanding of assistive devices/ modifications for ADL. 3=Patient will improve strength/tolerance for activity to enable patient to perform ADL's. OT Education/Plan Problem List/Assessment Pt to benefit from skilled OT intervention for ADL training, transfers, strengthening, and home safety education to increase level of independence and allow safe discharge home. Discharge Recommendations Plan/Recommendations: Continue POC Treatment Plan/Plan of Care Patient would benefit from OT for education, treatment and training to promote independence in ADL's, mobility, safety and/or upper extremity function for ADL' s. Plan of Care: ADL Retraining, Functional Mobility, Group Exercise/Act as Ind, UE Funct Exercise/Act Treatment Duration: Jun 19, 2018 Frequency: Modified Program (IRF) (21/01) Estimated Hrs Per Day: 1.5 hours per day Agreement: Yes Rehab Potential: Good Time/GCodes Start Time: 14:45 Stop Time: 15:00 Total Time Billed (hr/min): 15 Billed Treatment Time 1 visit-FA 1 (15 min) DENNYS MONTOYA Jun 06, 2018 15:08
--- NOTE | 2018-06-06 15:10 | Physical Therapy Daily Note ---
PT Daily Note-Current Subjective Pt laying Supine in bed upon arrival. Pt agrees to PT. Pain Numeric Pain Scale: 3 Location: Right Location Body Site: Knee Pain Description: Ache, Radiating, Tingling Mental Status Patient Orientation: Person, Place, Time, Situation Attachments: Gonzalez Catheter Transfers Functional [place] Measure 0=Not Assessed/NA 4=Minimal Assistance 1=Total Assistance 5=Supervision or Setup 2=Maximal Assistance 6=Modified [place] 3=Moderate Assistance 7=Complete [place] IRFPAI Quality Coding Scale 6 Independent with activity with or without an assistive device 5 Patient requires set up or clean up by helper. Patient completes activity by themselves 4 Supervision or touching assist (CGA). [place] provide cues , steadying assist 3 The helper provides less than half the effort to complete the activity 2 The helper provides more than half the effort to complete the activity 1 Dependent. The helper does all the effort to complete an activity 7 Patient refused to complete or attempt activity 9 The patient did not perform the activity before the current illness or injury 88 Not attempted due to Medical conditions or safety concerns Scootin Rollin Supine to/from Sit: 6 Sit to/from Stand: 6 Sit to Lying (QC): 6 Sit to Stand (QC): 6 Weight Bearing Right Lower Extremity: Right Full Weight Bearing Left Lower Extremity: Left Full Weight Bearing Gait Training Does the Patient Walk?: Yes Distance (FIM): 3=150 ft Distance: 350' Walk 10 feet (QC): 6 Walk 50 ft with 2 Turns(QC): 6 Walk 150 ft (QC): 6 Gait Level of Assist: 6 Gait Persons Needed: 1 Gait Assistive Device: FWW Pt wants to try ambulating with less restrictive AD tomorrow since discharge is set for Monday, giving a few days to get used to another AD that pt could get around in home better. Wheelchair Training Does the Pt Use a Wheelchair?: No Exercises Standing: Hamstring curls, Heel/toe raises, 3 way Ex=Flex, Abd, Ext ([address]), Marching, Mini squats, Weight shifts Standing Reps: 15 Treatments Pt transfers from bed to standing w/o AD. Pt ambualtes in hallway using FWW at Mod I. Pt completes Standing Ex at //bars at SBA. Pt ambulates again before returning to room to rest in bed. Pt has all needs met. Assessment Current Status: Good Progress Pt is continuing to work towards better strength & activity tolerance. PT Industrial Real Estate Agent Goals Detention Goals PT Industrial Real Estate Agent Goals Time Frame: Jun 16, 2018 Transfers (B,C,W/C) (FIM): 6 Sit to Lying (QC): 6 Lying-Sitting on Side/Bed(QC): 6 Sit to Stand (QC): 6 Rollin Roll Left to Right (QC): 6 Chair/Nro-ky-Actry Xfer(QC): 6 Car Transfer (QC): 6 Does the Patient Walk: Yes Gait (FIM): 6 Gait distance (FIM): 3=150 ft Distance: >200' Walk 10 feet (QC): 6 Walk 10ft-Uneven Surface(QC): 6 Walk 50ft with 2 Turns (QC): 6 Walk 150 ft (QC): 6 Gait Level of Assist: 6 Gait Assistive Device: None, FWW, Cane Single Point Stairs (FIM): 6 # of Steps: 12 1 Step (curb) (QC): 6 4 Steps (QC): 6 12 Steps (QC): 6 Stairs Level Of Assist: 6 Picking up an Object (QC): 6 PT Plan Problem List Problem List: Activity Tolerance, Functional Strength Treatment/Plan Treatment Plan: Continue Plan of Care Treatment Plan: Bed Mobility, Concurrent Therapy, Education, Functional Activity Kacey, Functional Strength, Group Therapy, Gait, Safety, Therapeutic Exercise, Transfers Treatment Duration: Jun 16, 2018 Frequency: At least 5 of 7 days/Wk (IRF) Estimated Hrs Per Day: 1.5 hours per day Patient and/or Family Agrees t: Yes Safety Risks/Education Patient Education: Gait Training, Correct Positioning, Safety Issues Teaching Recipient: Patient Teaching Methods: Discussion Response to Teaching: Verbalize Understanding Time/GCodes Time In: 1400 Time Out: 1445 Total Billed Treatment Time: 45 Total Billed Treatment 1, GT (20m) & EX x2 (25m) G Codes Necessary: YARIEL Sabillon INTAKE COORDINATOR Jun 06, 2018 15:10
[2018-06-06 17:59] VITALS: BP 124/69
[2018-06-06] MEDS: MELATONIN 3 MG TABLET PO SCH (21:00)
[2018-06-06] MEDS: AMITRIPTYLINE 25 MG (ELAVIL) TAB PO SCH (21:29)
[2018-06-07] MEDS: oxyCODONE/APAP 10/325MG (PERCOCET 10) TABLET PO PRN ×2 (02:09→09:56)
[2018-06-07 06:00] VITALS: BP 137/81
[2018-06-07] MEDS: inSUlin ASPART (NovoLOG) 1 UNIT/0.01 ML (CHARGE PER UNIT) SC SCH ×3 (06:00→17:05)
[2018-06-07 06:22] LABS: CALCIUM 9.1 MG/DL (8.5-10.1); CREATININE SERUM 2.9 MG/DL (0.60-1.30); POTASSIUM 4.4 MMOL/L (3.6-5.0)
--- NOTE | 2018-06-07 07:48 | Progress Note (SOAP) ---
Subjective Time Seen by a Provider: 07:45 Subjective/Events-last exam Patient positive. Patient improving. Renal insufficiency GFR of the same. Diabetes doing good. Blood pressure good. Patient feel he is improving. Patient getting around better. To use a cane today Objective Exam Vital Signs Date Time Temp Pulse Resp B/P (MAP) Pulse Ox O2 Delivery O2 Flow Rate FiO2 06/07/18 06:00 96.9 84 18 137/81 (99) 99 Room Air 06/06/18 21:00 Room Air 06/06/18 17:59 97.5 80 20 124/69 (87) 97 Room Air 06/06/18 11:00 Room Air 06/06/18 09:00 Room Air I & O 06/07/18 07:00 Intake Total 4010 ml Output Total 3500 ml Balance 510 ml Capillary Refill : General Appearance: No Apparent Distress, WD/WN HEENT: Normal ENT Inspection Neck: Full Range of Motion, Normal Inspection Respiratory: No Accessory Muscle Use, No Respiratory Distress Cardiovascular: Regular Rate, Rhythm, No Murmur Gastrointestinal: non tender, soft Results Lab Laboratory Tests 06/06/18 11:42: Glucometer 137H 06/06/18 16:10: Glucometer 121H 06/07/18 05:35: Sodium Level 136, Potassium Level 4.4, Chloride Level 103, Carbon Dioxide Level 19L, Anion Gap 14, Blood Urea Nitrogen 38H, Creatinine 2.90H, Estimat Glomerular Filtration Rate 23, BUN/Creatinine Ratio 13, Glucose Level 159H, Calcium Level 9.1 Assessment/Plan Assessment/Plan Assess & Plan/Chief Complaint Debility. History of renal failure. Renal insufficiency. Cellulitis of right leg. Diabetic neuropathy. Lymphedema. History of urethral stricture. . 06/07/18. Debility. Renal insufficiency. Cellulitis of right leg improving. Diabetic neuropathy. History of urethral stricture. Clinical Quality Measures DVT/VTE Risk/Contraindication: Risk Factor Score Per Nursin RFS Level Per Nursing on Admit: 4+=Very High TANMAY HERNÁNDEZ DO Jun 07, 2018 07:48
[2018-06-07] MEDS: buPROPion SR 150 MG (WELLBUTRIN SR) TAB PO SCH (07:50)
[2018-06-07] MEDS: amLODIPine 10 MG (NORVASC) TAB PO SCH (07:50)
[2018-06-07] MEDS: ENOXAPARIN 40 MG/0.4 ML (LOVENOX) SYR SC SCH ×2 (07:50→20:55)
[2018-06-07] MEDS: PREGABALIN 75 MG (LYRICA) CAP PO SCH ×2 (07:50→20:55)
--- NOTE | 2018-06-07 08:32 | Occupational Ther Daily Note ---
OT Current Status-Daily Note Subjective Pt alert, lying in bed. Pt agrees to therapy. No c/o pain. Mental Status/Objective Patient Orientation: Person, Place, Time, Situation Functional [place] Measure 0=Not Assessed/NA 4=Minimal Assistance 1=Total Assistance 5=Supervision or Setup 2=Maximal Assistance 6=Modified [place] 3=Moderate Assistance 7=Complete [place] Attachments: Negro Catheter ADL-Treatment Supine <--> EOB mod I using bed rails. Nrsg in room to assess pt, administer meds and dress wounds, increased time to complete. Functional [place] Measure 0=Not Assessed/NA 4=Minimal Assistance 1=Total Assistance 5=Supervision or Setup 2=Maximal Assistance 6=Modified [place] 3=Moderate Assistance 7=Complete [place] IRFPAI Quality Coding Scale 6 Independent with activity with or without an assistive device 5 Patient requires set up or clean up by helper. Patient completes activity by themselves 4 Supervision or touching assist (CGA). [place] provide cues , steadying assist 3 The helper provides less than half the effort to complete the activity 2 The helper provides more than half the effort to complete the activity 1 Dependent. The helper does all the effort to complete an activity 7 Patient refused to complete or attempt activity 9 The patient did not perform the activity before the current illness or injury 88 Not attempted due to Medical conditions or safety concerns Grooming (FIM): 7 (Stabilizing self with counter, pt stood at sink to complete grooming.) Oral Hygiene (QC): 6 Bathing (FIM): 5 (Supervision in standing. Uses grabbars, hand held shower, long handle sponge and shower bench.) Bathing Location: L Arm, R Arm, L Upper Leg, R Upper Leg, L Lower Leg ( including foot), R Lower Leg (including foot), Chest, Abdomen, Buttocks, Perineal Area Shower/Bathe Self (QC): 4 Upper Body (FIM): 6 (Retreives clothing and transports with FWW then dons/ doffs by self.) Upper Body Dressing (QC): 6 Lower Body Dressing (FIM): 4 (Retrieves and transports with FWW. Pt dons/ doffs pants by self and threads negro catheter through pant leg by self. Due to wounds on feet pt requires assist to don/doff socks.) Lower Body Dressing (QC): 3 On/Off Footwear (QC): 2 Shower Transfer(FIM): 5 (Supervision using FWW, grabbar and shower bench.) Other Treatment Ambulated with FWW to therapy gym. Completed arm bike 15 min at 25 duncan resistance to increase strength and activity tolerance. Pt ambulated back to room and sat in recliner after therapy. Call light/phone in reach. All needs met in room. OT Short Term Goals Short Term Goals 1=Demonstrate adherence to instructed precautions during ADL tasks. 2=Patient will verbalize/demonstrate understanding of assistive devices/ modifications for ADL. 3=Patient will improve strength/tolerance for activity to enable patient to perform ADL's. OT Principal Mechanical Engineer Goals Fpc Goals Time Frame: Jun 19, 2018 Eating (FIM): 6 Eating (QC): 6 Groomin Oral Hygiene (QC): 6 Bathing(FIM): 6 Shower/Bathe Self (QC): 6 Upper Body Dressing(FIM): 6 Upper Body Dressing (QC): 6 Lower Body Dressing(FIM): 6 Lower Body Dressing (QC): 6 On/Off Footwear (QC): 6 Toileting(FIM): 7 Toileting Hygiene (QC): 6 Toilet/Commode Transfer(FIM): 6 Toilet/Commode Transfer (QC): 6 Shower Transfer(FIM): 6 Comprehension(FIM): 7 Expression (FIM): 7 Social Interaction(FIM): 7 Problem Solving(FIM): 7 Memory(FIM): 7 Additional Goals: 1-Demonstrate ADL Tasks, 2-Verbalize Understanding, 3- ImproveStrength/Kacey 1=Demonstrate adherence to instructed precautions during ADL tasks. 2=Patient will verbalize/demonstrate understanding of assistive devices/ modifications for ADL. 3=Patient will improve strength/tolerance for activity to enable patient to perform ADL's. OT Education/Plan Problem List/Assessment Pt to benefit from skilled OT intervention for ADL training, transfers, strengthening, and home safety education to increase level of independence and allow safe discharge home. Discharge Recommendations Plan/Recommendations: Continue POC Treatment Plan/Plan of Care Patient would benefit from OT for education, treatment and training to promote independence in ADL's, mobility, safety and/or upper extremity function for ADL' s. Plan of Care: ADL Retraining, Functional Mobility, Group Exercise/Act as Ind, UE Funct Exercise/Act Treatment Duration: Jun 19, 2018 Frequency: Modified Program (IRF) (21/01) Estimated Hrs Per Day: 1.5 hours per day Agreement: Yes Rehab Potential: Good Time/GCodes Start Time: 07:00 Stop Time: 08:30 Total Time Billed (hr/min): 90 Billed Treatment Time 1 visit-ADL 5 (75 min) EX 1 (15 min) DENNYS MONTOYA Jun 07, 2018 08:32
--- NOTE | 2018-06-07 11:10 | Physical Therapy Daily Note ---
PT Daily Note-Current Subjective Pt laying Supine in bed upon arrival. Pt agrees to PT. Pt reports feeling better today than previous visits. Pain Numeric Pain Scale: 3 Location: Left Location Body Site: Knee Pain Description: Ache, Tightness Mental Status Patient Orientation: Person, Place, Time, Situation Attachments: Gonzalez Catheter Transfers Functional [place] Measure 0=Not Assessed/NA 4=Minimal Assistance 1=Total Assistance 5=Supervision or Setup 2=Maximal Assistance 6=Modified [place] 3=Moderate Assistance 7=Complete [place] IRFPAI Quality Coding Scale 6 Independent with activity with or without an assistive device 5 Patient requires set up or clean up by helper. Patient completes activity by themselves 4 Supervision or touching assist (CGA). [place] provide cues , steadying assist 3 The helper provides less than half the effort to complete the activity 2 The helper provides more than half the effort to complete the activity 1 Dependent. The helper does all the effort to complete an activity 7 Patient refused to complete or attempt activity 9 The patient did not perform the activity before the current illness or injury 88 Not attempted due to Medical conditions or safety concerns Scootin Rollin Roll Left to Right (QC): 6 Supine to/from Sit: 6 Sit to/from Stand: 6 Sit to Lying (QC): 6 Sit to Stand (QC): 6 Weight Bearing Right Lower Extremity: Right Full Weight Bearing Left Lower Extremity: Left Full Weight Bearing Gait Training Does the Patient Walk?: Yes Distance (FIM): 3=150 ft Distance: 450' Walk 10 feet (QC): 6 Walk 50 ft with 2 Turns(QC): 6 Walk 150 ft (QC): 6 Gait Level of Assist: 6 Gait Persons Needed: 1 Gait Assistive Device: None Pt ambulated to PT this morning using FWW but did not seem to need it. Pt tried LBQC and was not using it for WBing so attempted no AD and this went well. Wheelchair Training Does the Pt Use a Wheelchair?: No Stair Training Stair Training: Handrails/: 2 handrails #of Steps: 8 1 Step (curb) (QC): 6 4 Steps (QC): 6 Stairs: Pattern: Reciprocal Level of Assist: 6 Balance Picking up an Object (QC): 5 Exercises Supine Ex: Ankle pumps, Quad Set, Glut sets, Heel Slides, Straight leg raise, Hip abd/add Supine Reps: 20 Standing: Heel/toe raises, 3 way Ex=Flex, Abd, Ext (10 reps), Marching, Mini squats Standing Reps: 20 Treatments Pt transfers from bed to standing at Mod I. Pt ambulates to Therapy Gym using FWW at Mod I. Pt completes Supine Ex on mat then takes rest break. Pt ambulates 8 steps then completes Standing Ex at //bars with a couple rest breaks. Pt practices ambulation with LBQC then w/o AD to test for safety. Pt returns to room at end of tx to rest in bed with all needs met. Assessment Current Status: Good Progress Pt continues to be motivated to get stronger before discharge in a couple of days. Pt is able to walk well w/o AD. PT Care Home Goals Men[employer]S [employer] Boys' Clothing Salesperson Goals PT Men'S [employer] Boys' Clothing Salesperson Goals Time Frame: Jun 16, 2018 Transfers (B,C,W/C) (FIM): 6 Sit to Lying (QC): 6 Lying-Sitting on Side/Bed(QC): 6 Sit to Stand (QC): 6 Rollin Roll Left to Right (QC): 6 Chair/Ojp-sf-Qjtgw Xfer(QC): 6 Car Transfer (QC): 6 Does the Patient Walk: Yes Gait (FIM): 6 Gait distance (FIM): 3=150 ft Distance: >200' Walk 10 feet (QC): 6 Walk 10ft-Uneven Surface(QC): 6 Walk 50ft with 2 Turns (QC): 6 Walk 150 ft (QC): 6 Gait Level of Assist: 6 Gait Assistive Device: None, FWW, Cane Single Point Stairs (FIM): 6 # of Steps: 12 1 Step (curb) (QC): 6 4 Steps (QC): 6 12 Steps (QC): 6 Stairs Level Of Assist: 6 Picking up an Object (QC): 6 PT Plan Problem List Problem List: Activity Tolerance, Functional Strength Treatment/Plan Treatment Plan: Continue Plan of Care Treatment Plan: Bed Mobility, Concurrent Therapy, Education, Functional Activity Kacey, Functional Strength, Group Therapy, Gait, Safety, Therapeutic Exercise, Transfers Treatment Duration: Jun 16, 2018 Frequency: At least 5 of 7 days/Wk (IRF) Estimated Hrs Per Day: 1.5 hours per day Patient and/or Family Agrees t: Yes Safety Risks/Education Patient Education: Gait Training, Transfer Techniques, Correct Positioning, Safety Issues Teaching Recipient: Patient Teaching Methods: Discussion Response to Teaching: Verbalize Understanding Time/GCodes Time In: 945 Time Out: 1100 Total Billed Treatment Time: 75 Total Billed Treatment 1, GT x2 (25m), EX x2 (35m) & FA (15m) G Codes Necessary: YARIEL Sabillon HANSARD REPORTER Jun 07, 2018 11:10
--- NOTE | 2018-06-07 14:14 | Physical Therapy Daily Note ---
PT Daily Note-Current Subjective Pt laying Supine asleep in bed upon arrival. Pt agrees to PT. Pain Numeric Pain Scale: 3 Location: Left Location Body Site: Knee Pain Description: Ache Mental Status Patient Orientation: Person, Place, Time, Situation Transfers Functional [place] Measure 0=Not Assessed/NA 4=Minimal Assistance 1=Total Assistance 5=Supervision or Setup 2=Maximal Assistance 6=Modified [place] 3=Moderate Assistance 7=Complete [place] IRFPAI Quality Coding Scale 6 Independent with activity with or without an assistive device 5 Patient requires set up or clean up by helper. Patient completes activity by themselves 4 Supervision or touching assist (CGA). [place] provide cues , steadying assist 3 The helper provides less than half the effort to complete the activity 2 The helper provides more than half the effort to complete the activity 1 Dependent. The helper does all the effort to complete an activity 7 Patient refused to complete or attempt activity 9 The patient did not perform the activity before the current illness or injury 88 Not attempted due to Medical conditions or safety concerns Weight Bearing Right Lower Extremity: Right Full Weight Bearing Left Lower Extremity: Left Full Weight Bearing Exercises Supine Ex: Ankle pumps, Quad Set, Heel Slides, Straight leg raise, Hip abd/add Treatments Pt completes Supine Ex in bed then rests with all needs met. Assessment Current Status: Good Progress Pt has pain with certain Ex but does not let that limit participation. PT Skilled Nursing Goals Skilled Nursing Goals PT Skilled Nursing Goals Time Frame: Jun 16, 2018 Transfers (B,C,W/C) (FIM): 6 Sit to Lying (QC): 6 Lying-Sitting on Side/Bed(QC): 6 Sit to Stand (QC): 6 Rollin Roll Left to Right (QC): 6 Chair/Wle-yy-Gmzcj Xfer(QC): 6 Car Transfer (QC): 6 Does the Patient Walk: Yes Gait (FIM): 6 Gait distance (FIM): 3=150 ft Distance: >200' Walk 10 feet (QC): 6 Walk 10ft-Uneven Surface(QC): 6 Walk 50ft with 2 Turns (QC): 6 Walk 150 ft (QC): 6 Gait Level of Assist: 6 Gait Assistive Device: None, FWW, Cane Single Point Stairs (FIM): 6 # of Steps: 12 1 Step (curb) (QC): 6 4 Steps (QC): 6 12 Steps (QC): 6 Stairs Level Of Assist: 6 Picking up an Object (QC): 6 PT Plan Problem List Problem List: Activity Tolerance, Functional Strength Treatment/Plan Treatment Plan: Continue Plan of Care Treatment Plan: Bed Mobility, Concurrent Therapy, Education, Functional Activity Kacey, Functional Strength, Group Therapy, Gait, Safety, Therapeutic Exercise, Transfers Treatment Duration: Jun 16, 2018 Frequency: At least 5 of 7 days/Wk (IRF) Estimated Hrs Per Day: 1.5 hours per day Patient and/or Family Agrees t: Yes Safety Risks/Education Patient Education: Correct Positioning, Safety Issues Teaching Recipient: Patient Teaching Methods: Discussion Response to Teaching: Verbalize Understanding Time/GCodes Time In: 1330 Time Out: 1345 Total Billed Treatment Time: 15 Total Billed Treatment 1, EX (15m) G Codes Necessary: YARIEL Sabillon BUILDING DISMANTLER Jun 07, 2018 14:14
[2018-06-07 18:32] VITALS: BP 138/79
--- NOTE | 2018-06-07 20:27 | Individualized Plan of Care ---
Individualized Plan of Care Rehab Nursing IPOC Order Admission Date Jun 05, 2018 at 14:11 Current Orders Orders Admission Order(Inpt,Obs,Sdc) (06/05/18 14:45) Vital Signs: Routine (Order) 08,16,00 (06/05/18 14:45) Machining Department Supervisor-Inpt Rehab Con (06/05/18 14:45) Rehab Nursing Orders-Ipoc (06/05/18 14:45) Physical Therapy Rehab Orders (06/05/18 14:45) Occupational Therapy Rehab Ord (06/05/18 14:45) Speech Therapy Rehab Orders (06/05/18 14:45) Cho 60g/M 1snack (16-2000 Dylan) (06/05/18 Dinner) Turn And Reposition Q2HR (06/05/18 14:45) Intake & Output 06,14,22 (06/05/18 14:45) Accucheck Daily DAILY (06/05/18 14:45) Precautions (Aru) (06/05/18 14:45) Weekly Weight (Lbs) WEEK (06/05/18 14:45) Code/Resuscitation (06/05/18 14:45) Initiate Admission Nursing Pro .admission (06/05/18 14:45) Consult Physician (06/05/18 14:49) Comprehensive Metabolic Panel (06/06/18 06:00) Accucheck Achs ACHS (06/05/18 14:51) Amlodipine Tablet (Norvasc Tablet) (06/06/18 09:00) Pregabalin Capsule (Lyrica Capsule) (06/05/18 21:00) Amitriptyline Tablet (Elavil Tablet) (06/05/18 21:00) Bupropion Sr 12 Hr Tablet (Wellbutrin Sr (06/06/18 09:00) Oxycodone/Acet 10/325mg Tablet (Percocet (06/05/18 15:00) Insulin Aspart (Novolog) (Novolog (Charg (06/05/18 17:00) Oxygen-Administer 07,19 (06/05/18 14:56) Oxygen Delivery Set Up (06/05/18 14:56) Nursing Communication (Order) (06/05/18 15:08) Patient Visit (06/05/18 ) Pt Eval Moderate Complexity (06/05/18 ) Functional Activities, Ea 15 (06/05/18 ) Amlodipine Tablet (Norvasc Tablet) (06/06/18 09:00) Ambulate 08,12,20 (06/05/18 15:33) Sequential Compression Device 08,20 (06/05/18 15:33) Dvt/Vte Risk - Notifiy Physici 08 (06/05/18 15:33) Cbc And Manual Diff (06/06/18 06:00) Basic Metabolic Panel (06/06/18 06:00) Consult Wound Care Physician (06/05/18 17:05) Nursing Communication (Order) (06/05/18 18:51) Enoxaparin Injection (Lovenox Injection) (06/05/18 19:15) Enoxaparin Injection (Lovenox Injection) (06/05/18 19:30) Insulin Aspart (Novolog) (Novolog (Charg (06/06/18 07:00) Melatonin Tablet (Melatonin Tablet) (06/05/18 21:00) Melatonin Tablet (Melatonin Tablet) (06/05/18 20:23) Basic Metabolic Panel (06/07/18 06:00) Patient Visit (06/06/18 ) Speech Sound Lang Comp (06/06/18 ) Patient Visit (06/06/18 ) Gait Training, Ea 15 Min (06/06/18 ) Functional Activities, Ea 15 (06/06/18 ) Exercise Therap, Ea 15 Min (06/06/18 ) Advanced Wound Care Dressing O (06/06/18 16:55) Enoxaparin Injection (Lovenox Injection) (06/06/18 20:00) Patient Visit (06/07/18 ) Gait Training, Ea 15 Min (06/07/18 ) Exercise Therap, Ea 15 Min (06/07/18 ) Functional Activities, Ea 15 (06/07/18 ) Patient Visit (06/07/18 ) Exercise Therap, Ea 15 Min (06/07/18 ) Nursing Communication (Order) (06/07/18 14:48) Rehab Nursing Orders: Ongoing Assess. of Function Status, Bladder Management, Disease Management & Educaiton, DVT Prophylaxis, Fall Prevention, Fluid/ Electrolyte/Nutrition Mgmt, Infection Prevention, Medication Management & Education, Management of Risks & Complications, Management of Skin Intergrity, Nutrition Management, Pain Management, Patient/Family Support PT IPOC Problem List: Activity Tolerance, Functional Strength Treatment Plan: Continue Plan of Care Bed Mobility, Concurrent Therapy, Education, Functional Activity Kacey, Functional Strength, Group Therapy, Gait, Safety, Therapeutic Exercise, Transfers Treatment Duration: Jun 16, 2018 Frequency: At least 5 of 7 days/Wk (IRF) Estimated Hrs Per Day: 1.5 hours per day OT IPOC Problems: Decreased Activ Tolerance, Decreased UE Strength, Dependent Transfers , Impaired Self-Care Skills OT Treatment, Training and Edu: Yes OT Problems Pt to benefit from skilled OT intervention for ADL training, transfers, strengthening, and home safety education to increase level of independence and allow safe discharge home. Plan of Care: ADL Retraining, Functional Mobility, Group Exercise/Act as Ind, UE Funct Exercise/Act Treatment Duration: Jun 19, 2018 Frequency: Modified Program (IRF) (21/01) Estimated Hrs Per Day: 1.[address] IPOC Speech Therapy Treatment Plan: Discontinue ST, Goals Met Treatment Duration: Jun 07, 2018 Frequency: 1 time per week Estimated Hrs Per Day: .25 hour per day Machining Department Supervisor/Case Mgmt Machining Department Supervisor/Case Managemen: Discharge Planning, Patient/Family Counseling Dietitian/Toucher Up Dietitian/Toucher Up to monitor nutritional status and make changes and/or recommendations as needed and work with speech pathology on dietary upgrades as the occur. Physician IPOC Medical Issues being managed closely and that require the 24 hour availability of a physician: Lymphedema DM type 1 Diabetic PN IGC code 16 Etiologic DX ARF Urinary retention due to urethral stricture to have TOV today Medical Issues: Bowel/Bladder Function, DVT Prophylaxis, Falls Precautions, Fluid/Electrolyte/Nutrition Balance, Infection Protection, Pain Management, Wound Care, Other (List) (as per above) Brief Synthesis of Preadmission Screen, Post-Admission Evaluation, and Therapy Evaluations: 53 yo male who had recurrent cellulitis of the rt leg treated at OSH referred here for ongoing care and therapies Disabled OR Nurse awaiting Medicare currently without Medical insurance has Gonzalez catheter placed at OSH due to Urethral stricture [facility]Facility gave the OK for removal today and a TOV Team Conference held yesterday and discharge set for 12-18.PMH Type 1 DM Diabetic PN, Lymphedema followed by Wound care clinic in [facility]. Medical Prognosis: Good Anticipated Length of Stay: 12-01-18 Modified Independent for adls and mobility skills resolution of Urinary retention and continence of bladder Anticipated d/c Destination: Home with spouse JUSTUS ODONNELL MD Jun 07, 2018 20:27
[2018-06-07] MEDS: AMITRIPTYLINE 25 MG (ELAVIL) TAB PO SCH (20:55)
[2018-06-07] MEDS: MELATONIN 3 MG TABLET PO SCH (20:57)
[2018-06-08 05:00] VITALS: BP 139/71
[2018-06-08] MEDS: inSUlin ASPART (NovoLOG) 1 UNIT/0.01 ML (CHARGE PER UNIT) SC SCH ×3 (06:47→17:16)
--- NOTE | 2018-06-08 07:57 | Progress Note (SOAP) ---
Subjective Time Seen by a Provider: 07:55 Subjective/Events-last exam Patient doing better. Patient without Gonzalez catheter. To check urine. Patient can't wait to urinate. Patient be discharged tomorrow. Renal function the same Objective Exam Vital Signs Date Time Temp Pulse Resp B/P (MAP) Pulse Ox O2 Delivery O2 Flow Rate FiO2 06/08/18 05:00 97.6 89 18 139/71 (93) 98 Nasal Cannula 2.00 06/07/18 21:05 Room Air 06/07/18 18:32 98.3 91 18 138/79 (98) 98 Room Air I & O 06/08/18 07:00 Intake Total 2060 ml Output Total 5100 ml Balance -3040 ml Capillary Refill : General Appearance: No Apparent Distress, WD/WN HEENT: Normal ENT Inspection Neck: Normal Inspection Respiratory: Lungs Clear, No Accessory Muscle Use, No Respiratory Distress Cardiovascular: Regular Rate, Rhythm, No Murmur Results Lab Laboratory Tests 06/07/18 10:54: Glucometer 137H 06/07/18 16:14: Glucometer 129H 06/07/18 20:41: Glucometer 139H 06/08/18 04:25: Glucometer 151H Assessment/Plan Assessment/Plan Assess & Plan/Chief Complaint Debility. History of renal failure. Renal insufficiency. Cellulitis of right leg. Diabetic neuropathy. Lymphedema. History of urethral stricture. . 06/07/18. Debility. Renal insufficiency. Cellulitis of right leg improving. Diabetic neuropathy. History of urethral stricture.. . 06/08/18. Debility better. Renal insufficiency the same. Cellulitis of right leg. Diabetic neuropathy. Patient's Gonzalez catheter has been removed Clinical Quality Measures DVT/VTE Risk/Contraindication: Risk Factor Score Per Nursin RFS Level Per Nursing on Admit: 4+=Very High TANMAY HERNÁNDEZ DO Jun 08, 2018 07:57
[2018-06-08] MEDS: PREGABALIN 75 MG (LYRICA) CAP PO SCH ×2 (08:25→20:35)
[2018-06-08] MEDS: amLODIPine 10 MG (NORVASC) TAB PO SCH (08:25)
[2018-06-08] MEDS: ENOXAPARIN 40 MG/0.4 ML (LOVENOX) SYR SC SCH ×2 (08:25→20:35)
[2018-06-08] MEDS: buPROPion SR 150 MG (WELLBUTRIN SR) TAB PO SCH (08:25)
--- NOTE | 2018-06-08 08:26 | PM & R (SOAP) Progress Note ---
Subjective This was a face to face visit with the patient. Date Seen by Provider: Jun 08, 2018 Time Seen by Provider: 07:40 Subjective/Events-last exam Patient was seen in his room this AM Patient Modified Independent for transfers Discharge set for tomorrow Patient indicates that he will have f/u with Wound- care Pjysician in [facility] on 06-12-18 RT leg cellulitis improved Date Identified: Jun 08, 2018 Time Identified: 08:15 Medication Intervention: dIcharge meds reviewed Objective Physician Exam Last Set of Vital Signs Vital Signs Date Time Temp Pulse Resp B/P (MAP) Pulse Ox O2 Delivery O2 Flow Rate FiO2 06/08/18 05:00 97.6 89 18 139/71 (93) 98 Nasal Cannula 2.00 Capillary Refill : I&O Intake and Output 06/08/18 00:00 Intake Total 2860 ml Output Total 3400 ml Balance -540 ml Intake Oral 2860 ml Output Urine Total 3000 ml Post Void Residual 400 ml # Voids 2 # Urine Diapers 2 General: Alert, Oriented X3, Cooperative, No Acute Distress HEENT: Atraumatic, PERRLA, EOMI, Mucous Memb Moist/[place] Neck: Supple, No JVD Lungs: Clear to Auscultation Heart: Regular Rate Abdomen: Normal Bowel Sounds, Soft, No Tenderness, Other (obese) Extremities: Other (Resolving cellulitis rt leg Lymphedema both legs) Neuro: Other (Decreased sensation both feet Cognition intact Strength fair +/ good- fred legs) Psych/Mental Status: Mental Status NL Results Lab Data Laboratory Tests 06/05/18 16:07: Glucometer 158H 06/05/18 20:03: Glucometer 90 06/05/18 21:31: Glucometer 108 06/06/18 04:52: Glucometer 139H 06/06/18 04:55: White Blood Count 6.2, Red Blood Count 3.70L, Hemoglobin 10.1L, Hematocrit 32L, Mean Corpuscular Volume 88, Mean Corpuscular Hemoglobin 27, Mean Corpuscular Hemoglobin Concent 31L, Red Cell Distribution Width 14.9H, Platelet Count 136, Mean Platelet Volume 9.2, Neutrophils (%) (Auto) 59, Lymphocytes (%) (Auto) 26, Monocytes (%) (Auto) 8, Eosinophils (%) (Auto) 6, Basophils (%) (Auto) 1, Neutrophils # (Auto) 3.7, Lymphocytes # (Auto) 1.6, Monocytes # (Auto) 0.5, Eosinophils # (Auto) 0.3, Basophils # (Auto) 0.1, Neutrophils % (Manual) 58, Lymphocytes % (Manual) 28, Monocytes % (Manual) 9, Eosinophils % (Manual) 5, Sodium Level 136, Potassium Level 4.2, Chloride Level 103, Carbon Dioxide Level 21, Anion Gap 12, Blood Urea Nitrogen 34H, Creatinine 2.94H, Estimat Glomerular Filtration Rate 23, BUN/Creatinine Ratio 12, Glucose Level 150H, Calcium Level 9.2, Corrected Calcium 9.8, Total Bilirubin 0.6, Aspartate Amino Transf (AST/ SGOT) 19, Alanine Aminotransferase (ALT/SGPT) 22, Alkaline Phosphatase 56, Total Protein 8.8H, Albumin 3.2 06/06/18 11:42: Glucometer 137H 06/06/18 16:10: Glucometer 121H 06/07/18 05:35: Sodium Level 136, Potassium Level 4.4, Chloride Level 103, Carbon Dioxide Level 19L, Anion Gap 14, Blood Urea Nitrogen 38H, Creatinine 2.90H, Estimat Glomerular Filtration Rate 23, BUN/Creatinine Ratio 13, Glucose Level 159H, Calcium Level 9.1 06/07/18 10:54: Glucometer 137H 06/07/18 16:14: Glucometer 129H 06/07/18 20:41: Glucometer 139H 06/08/18 04:25: Glucometer 151H Assessment/Plan Assessment and Plan Cellulitis with underlying lymphedema improving Urinary retention due to urethral stricture improved with Gonzalez out and voiding discussed with RN Probable BRIANA to do nocturnal oximetry tonight to document any need for home 02 Will have medicare as of 07-10-18-Discussedc with RN Obesity Extended spectrum beta lactamase UTI treated HTN controlled with med Acute Kidney injury secondary to acute tubular necrosis improved s/p dialysis DM type 1 controlled Diabetic PN on med Plan D/c to [place] with spouse tomorrow F/U with wound clinic 06-12-18 as per above See orders Co-Morbidities that are continuing to impact the rehab process: (include details ) JUSTUS ODONNELL MD Jun 08, 2018 08:26
[2018-06-08] MEDS ORDERED: AMLO10TA6 PO (08:32)
[2018-06-08] MEDS ORDERED: OXYC1TAB12 PO (08:32)
[2018-06-08] MEDS ORDERED: AMIT25TA9 PO (08:32)
[2018-06-08] MEDS ORDERED: INSU100V16 SC (08:32)
[2018-06-08] MEDS ORDERED: PREG75CA PO (08:32)
--- NOTE | 2018-06-08 08:36 | Occupational Ther Daily Note ---
OT Current Status-Daily Note Subjective Pt alert, lying in bed. Pt agrees to therapy. No c/o pain at this time. Mental Status/Objective Patient Orientation: Person, Place, Time, Situation Functional Christian Measure 0=Not Assessed/NA 4=Minimal Assistance 1=Total Assistance 5=Supervision or Setup 2=Maximal Assistance 6=Modified Christian 3=Moderate Assistance 7=Complete Christian ADL-Treatment Functional Christian Measure 0=Not Assessed/NA 4=Minimal Assistance 1=Total Assistance 5=Supervision or Setup 2=Maximal Assistance 6=Modified Christian 3=Moderate Assistance 7=Complete Christian IRFPAI Quality Coding Scale 6 Independent with activity with or without an assistive device 5 Patient requires set up or clean up by helper. Patient completes activity by themselves 4 Supervision or touching assist (CGA). [place] provide cues , steadying assist 3 The helper provides less than half the effort to complete the activity 2 The helper provides more than half the effort to complete the activity 1 Dependent. The helper does all the effort to complete an activity 7 Patient refused to complete or attempt activity 9 The patient did not perform the activity before the current illness or injury 88 Not attempted due to Medical conditions or safety concerns Eating (FIM): 7 (Opens containers/packages by self then uses regular utensils to eat.) Eating (QC): 6 Grooming (FIM): 7 (Standing at sink, pt able to complete by self.) Oral Hygiene (QC): 6 Bathing (FIM): 6 (Mod I using long handle sponge, grabbar, hand held shower and shower bench.) Bathing Location: L Arm, R Arm, L Upper Leg, R Upper Leg, L Lower Leg ( including foot), R Lower Leg (including foot), Chest, Abdomen, Buttocks, Perineal Area Shower/Bathe Self (QC): 6 Upper Body (FIM): 6 (Using FWW to retrieve and transport clothing, pt able to don/doff by self.) Upper Body Dressing (QC): 6 Lower Body Dressing (FIM): 4 (Using FWW to retrieve and transport clothing, pt able to don/doff pants by self. Due to wounds on feet, pt requires assist to don/doff socks.) Lower Body Dressing (QC): 3 On/Off Footwear (QC): 2 Toileting (FIM): 6 (Using grabbar, pt able to completeown hygiene.) Toileting Hygiene (QC): 6 Toilet/Commode Transfer (FIM): 6 (Using grabbar and FWW, pt able to complete transfer.) Toilet Transfer (QC): 6 Shower Transfer(FIM): 6 (Using grabbar, shower bench and FWW pt able to complete by self.) Other Treatment Pt ambulated to therapy gym to complete UE exercises to increase strength and activity tolerance for daily functional tasks. Arm bike 15 min at 25 duncan resistance, no breaks. Dowel tiffani with 3# wt attached for 2 UE exercises, 30 reps. In room pt completed medium resistance theraband UE exercises 2 sets 10 reps. HEP and theraband given to pt for home use. After therapy, pt lying in bed with call light/phone in reach. All needs met in room. Nrsg in room. OT Short Term Goals Short Term Goals 1=Demonstrate adherence to instructed precautions during ADL tasks. 2=Patient will verbalize/demonstrate understanding of assistive devices/ modifications for ADL. 3=Patient will improve strength/tolerance for activity to enable patient to perform ADL's. OT Garage Door Installer Goals Garage Door Installer Goals Time Frame: Jun 19, 2018 Eating (FIM): 6 (met) Eating (QC): 6 (met) Groomin (met) Oral Hygiene (QC): 6 (met) Bathing(FIM): 6 (met) Shower/Bathe Self (QC): 6 (met) Upper Body Dressing(FIM): 6 (met) Upper Body Dressing (QC): 6 (met) Lower Body Dressing(FIM): 6 (not met) Lower Body Dressing (QC): 6 (not met) On/Off Footwear (QC): 6 (not met) Toileting(FIM): 7 (no met) Toileting Hygiene (QC): 6 (met) Toilet/Commode Transfer(FIM): 6 (met) Toilet/Commode Transfer (QC): 6 (met) Shower Transfer(FIM): 6 (met) Comprehension(FIM): 7 Expression (FIM): 7 Social Interaction(FIM): 7 Problem Solving(FIM): 7 Memory(FIM): 7 Additional Goals: 1-Demonstrate ADL Tasks, 2-Verbalize Understanding, 3- ImproveStrength/Kacey 1=Demonstrate adherence to instructed precautions during ADL tasks. 2=Patient will verbalize/demonstrate understanding of assistive devices/ modifications for ADL. 3=Patient will improve strength/tolerance for activity to enable patient to perform ADL's. OT Education/Plan Problem List/Assessment Pt to benefit from skilled OT intervention for ADL training, transfers, strengthening, and home safety education to increase level of independence and allow safe discharge home. Discharge Recommendations Plan/Recommendations: Continue POC Treatment Plan/Plan of Care Patient would benefit from OT for education, treatment and training to promote independence in ADL's, mobility, safety and/or upper extremity function for ADL' s. Plan of Care: ADL Retraining, Functional Mobility, Group Exercise/Act as Ind, UE Funct Exercise/Act Treatment Duration: Jun 19, 2018 Frequency: Modified Program (IRF) (21/01) Estimated Hrs Per Day: 1.5 hours per day Agreement: Yes Rehab Potential: Good Time/GCodes Start Time: 07:00 Stop Time: 08:30 Total Time Billed (hr/min): 90 Billed Treatment Time 1 visit-ADL 3 (45 min) EX 3 (45 min) DENNYS MONTOYA Jun 08, 2018 08:36
--- NOTE | 2018-06-08 10:14 | Physical Therapy Daily Note ---
PT Daily Note-Current Subjective Pt. in bed , agrees to Rx, states he feels safe walking without AD. States he has never had a fall at home. Pain Numeric Pain Scale: 5-Moderate Pain Location: Left Location Body Site: Knee Pain Description: Ache Mental Status Patient Orientation: Normal For Age Transfers Therapy Code Descriptions/Definitions Functional [place] Measure: 0=Not Assessed/NA 4=Minimal Assistance 1=Total Assistance 5=Supervision or Setup 2=Maximal Assistance 6=Modified [place] 3=Moderate Assistance 7=Complete [place] Therapy Quality Codes: 6 Independent with activity with or without an assistive device 5 Patient requires set up or clean up by helper. Patient completes activity by themselves 4 Supervision or touching assist (CGA). [place] provide cues , steadying assist 3 The helper provides less than half the effort to complete the activity 2 The helper provides more than half the effort to complete the activity 1 Dependent. The helper does all the effort to complete an activity 7 Patient refused to complete or attempt activity 9 The patient did not perform the activity before the current illness or injury 88 Not attempted due to Medical conditions or safety concerns Transfers (B, C, W/C) (FIM): 6 Scootin Rollin Roll Left to Right (QC): 5 Supine to/from Sit: 6 Sit to/from Stand: 6 Sit to Lying (QC): 5 Sit to Stand (QC): 5 Chair/Ayh-xp-Lzpbd Xfer(QC): 5 Bed to/from Chair: 6 Car Transfer (QC): 5 Weight Bearing Right Lower Extremity: Right Full Weight Bearing Left Lower Extremity: Left Full Weight Bearing Gait Training Does the Patient Walk?: Yes Gait (FIM): 6 Distance (FIM): 3=150 ft (200x2,150) Walk 10 feet (QC): 5 Walk 50 ft with 2 Turns(QC): 5 Walk 150 ft (QC): 5 Walking 10ft/uneven surface-QC: 5 Gait Level of Assist: 6 Gait Persons Needed: 0 Gait Assistive Device: None Stair Training Stair Training: Handrails/: 2 handrails Stairs (FIM): 6 #of Steps: 12 1 Step (curb) (QC): 6 4 Steps (QC): 6 12 Steps (QC): 6 Stairs: Pattern: Reciprocal Level of Assist: 6 Balance Picking up an Object (QC): 5 Exercises Supine Ex: Ankle pumps, Quad Set, Rolling, Glut sets, Heel Slides, Scooting, Straight leg raise, Hip abd/add Supine Reps: 15 NuStep Minutes: 10 NuStep Workload: 4 Assessment Current Status: Good Progress meets goals PT [place] Supervisor Goals [place] Supervisor Goals PT [place] Supervisor Goals Time Frame: Jun 16, 2018 Transfers (B,C,W/C) (FIM): 6 Sit to Lying (QC): 6 Lying-Sitting on Side/Bed(QC): 6 Sit to Stand (QC): 6 Rollin Roll Left to Right (QC): 6 Chair/Ysr-yr-Jokcr Xfer(QC): 6 Car Transfer (QC): 6 Does the Patient Walk: Yes Gait (FIM): 6 Gait distance (FIM): 3=150 ft Distance: >200' Walk 10 feet (QC): 6 Walk 10ft-Uneven Surface(QC): 6 Walk 50ft with 2 Turns (QC): 6 Walk 150 ft (QC): 6 Gait Level of Assist: 6 Gait Assistive Device: None, FWW, Cane Single Point Stairs (FIM): 6 # of Steps: 12 1 Step (curb) (QC): 6 4 Steps (QC): 6 12 Steps (QC): 6 Stairs Level Of Assist: 6 Picking up an Object (QC): 6 PT Plan Treatment/Plan Treatment Plan: Continue Plan of Care Treatment Plan: Bed Mobility, Concurrent Therapy, Education, Functional Activity Kacey, Functional Strength, Group Therapy, Gait, Safety, Therapeutic Exercise, Transfers Treatment Duration: Jun 16, 2018 Frequency: At least 5 of 7 days/Wk (IRF) Estimated Hrs Per Day: 1.5 hours per day Patient and/or Family Agrees t: Yes Safety Risks/Education Patient Education: Gait Training, Transfer Techniques, Steps, Correct Positioning, Disease Process, Safety Issues Teaching Recipient: Patient Teaching Methods: Demonstration, Discussion Response to Teaching: Verbalize Understanding, Return Demonstration Time/GCodes Time In: 930 Time Out: 1030 Total Billed Treatment Time: 60 Total Billed Treatment 1,EX20m,GT15m,FA25m G Codes Necessary: FORTINO Estrada JUKE BOX SERVICER Jun 08, 2018 10:14
[2018-06-08 11:29] LABS: BILIRUBIN,URINE NEGATIVE (NEGATIVE); CLARITY,URINE CLEAR; COLOR,URINE YELLOW; GLUCOSE, URINE (UA) NEGATIVE (NEGATIVE); KETONES,URINE NEGATIVE (NEGATIVE); LEUKOCYTE ESTERASE ,URINE 1+ (NEGATIVE); NITRITE,URINE NEGATIVE (NEGATIVE); PH,URINE 5 (5-9); PROTEIN,URINE NEGATIVE (NEGATIVE); UROBILINOGEN,URINE NORMAL (NORMAL)
[2018-06-08 11:35] LABS: BACTERIA,URINE NEGATIVE /HPF; SQUAMOUS EPITHELIAL CELL,UR 0-2 /HPF
[2018-06-08] MEDS: oxyCODONE/APAP 10/325MG (PERCOCET 10) TABLET PO PRN (12:57)
--- NOTE | 2018-06-08 14:58 | Physical Therapy Daily Note ---
PT Daily Note-Current Subjective Pt awake in bed watching tv when PT entered room. Pt agreed to get up and exercise for PT. Pain Numeric Pain Scale: 0-No Pain Location: No Pain Reported Mental Status Patient Orientation: Normal For Age Transfers Therapy Code Descriptions/Definitions Functional [place] Measure: 0=Not Assessed/NA 4=Minimal Assistance 1=Total Assistance 5=Supervision or Setup 2=Maximal Assistance 6=Modified [place] 3=Moderate Assistance 7=Complete [place] Therapy Quality Codes: 6 Independent with activity with or without an assistive device 5 Patient requires set up or clean up by helper. Patient completes activity by themselves 4 Supervision or touching assist (CGA). [place] provide cues , steadying assist 3 The helper provides less than half the effort to complete the activity 2 The helper provides more than half the effort to complete the activity 1 Dependent. The helper does all the effort to complete an activity 7 Patient refused to complete or attempt activity 9 The patient did not perform the activity before the current illness or injury 88 Not attempted due to Medical conditions or safety concerns Transfers (B, C, W/C) (FIM): 7 Scootin Rollin Roll Left to Right (QC): 7 Supine to/from Sit: 7 Sit to/from Stand: 7 Sit to Lying (QC): 7 Sit to Stand (QC): 7 Weight Bearing Right Lower Extremity: Right Full Weight Bearing Left Lower Extremity: Left Full Weight Bearing Gait Training Does the Patient Walk?: Yes Gait (FIM): 7 Distance (FIM): 3=150 ft Distance: 150' Walk 10 feet (QC): 7 Walk 50 ft with 2 Turns(QC): 7 Walk 150 ft (QC): 7 Gait Level of Assist: 7 Gait Assistive Device: None Exercises Standing: Hip Abduction, Mini squats Standing Reps: 20 Neuromuscular Tandem on solid and foam surface single leg stance on firm Narrow CHRISTAL on firm eyes open/closed Assessment Current Status: Good Progress Pt is able to ambulate to therapy gym without an AD or assistance. Patient is independent for all transfers and ambulation. Patient focused on balance and LE exercises in therapy gym before returning to room. PT Short Term Goals Short Term Goals Time Frame: Jun 08, 2018 PT Mcc Goals Retail Inventory Control Clerk Goals PT Retail Inventory Control Clerk Goals Time Frame: Jun 16, 2018 Transfers (B,C,W/C) (FIM): 6 Sit to Lying (QC): 6 Lying-Sitting on Side/Bed(QC): 6 Sit to Stand (QC): 6 Rollin Roll Left to Right (QC): 6 Chair/Dlo-bi-Dcafm Xfer(QC): 6 Car Transfer (QC): 6 Does the Patient Walk: Yes Gait (FIM): 6 Gait distance (FIM): 3=150 ft Distance: >200' Walk 10 feet (QC): 6 Walk 10ft-Uneven Surface(QC): 6 Walk 50ft with 2 Turns (QC): 6 Walk 150 ft (QC): 6 Gait Level of Assist: 6 Gait Assistive Device: None, FWW, Cane Single Point Stairs (FIM): 6 # of Steps: 12 1 Step (curb) (QC): 6 4 Steps (QC): 6 12 Steps (QC): 6 Stairs Level Of Assist: 6 Picking up an Object (QC): 6 PT Plan Problem List Problem List: Functional Strength, Balance Treatment/Plan Treatment Plan: Continue Plan of Care Treatment Plan: Bed Mobility, Concurrent Therapy, Education, Functional Activity Kacey, Functional Strength, Group Therapy, Gait, Safety, Therapeutic Exercise, Transfers Treatment Duration: Jun 16, 2018 Frequency: At least 5 of 7 days/Wk (IRF) Estimated Hrs Per Day: 1.5 hours per day Patient and/or Family Agrees t: Yes Time/GCodes Time In: 1425 Time Out: 1455 Total Billed Treatment Time: 30 Total Billed Treatment 1 Visit NM - 15 EX - 15 HELGA VASQUEZ PT Jun 08, 2018 14:58
[2018-06-08 17:03] VITALS: BP 130/81
[2018-06-08] MEDS: MELATONIN 3 MG TABLET PO SCH (20:35)
[2018-06-08] MEDS: AMITRIPTYLINE 25 MG (ELAVIL) TAB PO SCH (20:35)
[2018-06-09 05:00] VITALS: BP 130/81
[2018-06-09] MEDS: inSUlin ASPART (NovoLOG) 1 UNIT/0.01 ML (CHARGE PER UNIT) SC SCH (06:46)
[2018-06-09 09:00] VITALS: BP 127/79
[2018-06-09] MEDS: buPROPion SR 150 MG (WELLBUTRIN SR) TAB PO SCH (09:13)
[2018-06-09] MEDS: PREGABALIN 75 MG (LYRICA) CAP PO SCH (09:13)
[2018-06-09] MEDS: amLODIPine 10 MG (NORVASC) TAB PO SCH (09:13)
[2018-06-09] MEDS: ENOXAPARIN 40 MG/0.4 ML (LOVENOX) SYR SC SCH (09:14)
[2018-06-09 11:45] VITALS: BP 130/81
--- NOTE | 2018-06-11 09:01 | Therapy Team Discharge Summary ---
Therapy Discharge Summary Discharge Recommendations Date of Discharge Jun 09, 2018 at 11:45 Therapy D/C Recommendations: Home w/ Family Support Physical Therapy this patient was seen on ARU post acute hospital stay for ARF. His PLOF was mod indep to indep with all mobility. He lives at home with his with family nearby to assist. Upon admit to this unit, he was grossly SBA with transfers, gait and stairs. Treatment focused on functional safety, work on most appropriate AD for gait and strengthening. He did make gains and achieved all goals set at evaluation. At discharge, he was mod indep with all mobility. Pt to discharge home with family support as needed. DC PT. Occupational Therapy Decreased Activ Tolerance, Decreased UE Strength, Dependent Transfers, Impaired Self-Care Skills PT Causticiser Goals Causticiser Goals PT Snf Goals Time Frame: Jun 16, 2018 Transfers (B,C,W/C) (FIM): 6 (met) Roll Left to Right (QC): 6 Sit to Lying (QC): 6 Lying-Sitting on Side/Bed(QC): 6 Sit to Stand (QC): 6 Chair/Sfh-mi-Qnoqu Xfer(QC): 6 Car Transfer (QC): 6 Does the Patient Walk: Yes Gait (FIM): 6 (met) Gait distance (FIM): 3=150 ft Distance: >200' Walk 10 feet (QC): 6 Walk 10ft-Uneven Surface(QC): 6 Walk 50ft with 2 Turns (QC): 6 Walk 150 ft (QC): 6 Gait Level of Assist: 6 Gait Assistive Device: None, FWW, Cane Single Point Stairs (FIM): 6 (met) # of Steps: 12 1 Step (curb) (QC): 6 4 Steps (QC): 6 12 Steps (QC): 6 Stairs Level Of Assist: 6 Picking up an Object (QC): 6 all goals met to a satisfactory level OT Snf Goals Snf Goals Time Frame: Jun 19, 2018 Eating (FIM): 6 (met) Eating (QC): 6 (met) Oral Hygiene (QC): 6 (met) Grooming(FIM): 7 (met) Bathing(FIM): 6 (met) Shower/Bathe Self (QC): 6 (met) Upper Body Dressing(FIM): 6 (met) Upper Body Dressing (QC): 6 (met) Lower Body Dressing(FIM): 6 (not met) Lower Body Dressing (QC): 6 (not met) On/Off Footwear (QC): 6 (not met) Toileting(FIM): 7 (no met) Toileting Hygiene (QC): 6 (met) Toilet/Commode Transfer(FIM): 6 (met) Toilet/Commode Transfer (QC): 6 (met) Shower Transfer(FIM): 6 (met) Comprehension(FIM): 7 Expression (FIM): 7 Social Interaction(FIM): 7 Problem Solving(FIM): 7 Memory(FIM): 7 Additional Goals: 1-Demonstrate ADL Tasks, 2-Verbalize Understanding, 3- ImproveStrength/Kacey 1=Demonstrate adherence to instructed precautions during ADL tasks. 2=Patient will verbalize/demonstrate understanding of assistive devices/ modifications for ADL. 3=Patient will improve strength/tolerance for activity to enable patient to perform ADL's. Speech Snf Goals Causticiser Goals Patient will demonstrate abilities for safety upon his return home. Comprehension: 7 Expression: 7 Social Interaction: 7 Problem Solvin Memory: 7 DENNYS SANTACRUZ PT Jun 11, 2018 09:01
--- NOTE | 2018-06-12 14:17 | Therapy Team Discharge Summary ---
Therapy Discharge Summary Discharge Recommendations Date of Discharge Jun 09, 2018 at 11:45 Therapy D/C Recommendations: Home w/ Family Support Occupational Therapy Pt admitted to ARU following acute hospitalization for acute renal failure. On admission pt required min assist with LE dressing, SBA with Grooming, bathing, and UE dressing. Skilled OT intervention focused on ADL training, transfers, strengthening, and safety. By discharge pt is completing eating and grooming independently, LE dressing with minimal assistance, and the remainder of basic self care and transfers with modified independence. Pt did not meet goals for LE dressing and toileting, but met all other LTG. Pt discharged home. D/C ARU OT Decreased Activ Tolerance, Decreased UE Strength, Dependent Transfers, Impaired Self-Care Skills PT Acoustical Logging Engineer Goals Nursing Home Goals PT Nursing Home Goals Time Frame: Jun 16, 2018 Transfers (B,C,W/C) (FIM): 6 (met) Roll Left to Right (QC): 6 Sit to Lying (QC): 6 Lying-Sitting on Side/Bed(QC): 6 Sit to Stand (QC): 6 Chair/Pkp-jm-Gctmm Xfer(QC): 6 Car Transfer (QC): 6 Does the Patient Walk: Yes Gait (FIM): 6 (met) Gait distance (FIM): 3=150 ft Distance: >200' Walk 10 feet (QC): 6 Walk 10ft-Uneven Surface(QC): 6 Walk 50ft with 2 Turns (QC): 6 Walk 150 ft (QC): 6 Gait Level of Assist: 6 Gait Assistive Device: None, FWW, Cane Single Point Stairs (FIM): 6 (met) # of Steps: 12 1 Step (curb) (QC): 6 4 Steps (QC): 6 12 Steps (QC): 6 Stairs Level Of Assist: 6 Picking up an Object (QC): 6 OT Acoustical Logging Engineer Goals Acoustical Logging Engineer Goals Time Frame: Jun 19, 2018 Eating (FIM): 6 (met) Eating (QC): 6 (met) Oral Hygiene (QC): 6 (met) Grooming(FIM): 7 (met) Bathing(FIM): 6 (met) Shower/Bathe Self (QC): 6 (met) Upper Body Dressing(FIM): 6 (met) Upper Body Dressing (QC): 6 (met) Lower Body Dressing(FIM): 6 (not met) Lower Body Dressing (QC): 6 (not met) On/Off Footwear (QC): 6 (not met) Toileting(FIM): 7 (no met) Toileting Hygiene (QC): 6 (met) Toilet/Commode Transfer(FIM): 6 (met) Toilet/Commode Transfer (QC): 6 (met) Shower Transfer(FIM): 6 (met) Comprehension(FIM): 7 Expression (FIM): 7 Social Interaction(FIM): 7 Problem Solving(FIM): 7 Memory(FIM): 7 Additional Goals: 1-Demonstrate ADL Tasks, 2-Verbalize Understanding, 3- ImproveStrength/Kacey 1=Demonstrate adherence to instructed precautions during ADL tasks. 2=Patient will verbalize/demonstrate understanding of assistive devices/ modifications for ADL. 3=Patient will improve strength/tolerance for activity to enable patient to perform ADL's. Speech Nursing Home Goals Nursing Home Goals Patient will demonstrate abilities for safety upon his return home. Comprehension: 7 Expression: 7 Social Interaction: 7 Problem Solvin Memory: 7 NELSY MOSER OT Jun 12, 2018 14:17
== END 2018-06-09 11:45 | disposition home or self-care (01) | DRG 603 ==
PROVIDERS: ADMIT Physical Medicine & Rehabilitation; ATTEND Physical Medicine & Rehabilitation
DX: L03.115 Cellulitis of right lower limb (principal); I89.0 Lymphedema, not elsewhere classified; R26.2 Difficulty in walking, not elsewhere classified; E11.42 Type 2 diabetes mellitus with diabetic polyneuropathy; E11.610 Type 2 diabetes mellitus with diabetic neuropathic arthropathy; I12.9 Hypertensive chronic kidney disease with stage 1 through stage 4 chronic kidney disease, or unspecified chronic kidney disease; N18.9 Chronic kidney disease, unspecified; N35.919 Unspecified urethral stricture, male, unspecified site; Z68.42 Body mass index [BMI] 45.0-49.9, adult; R33.9 Retention of urine, unspecified; E66.9 Obesity, unspecified; G47.33 Obstructive sleep apnea (adult) (pediatric); Z99.81 Dependence on supplemental oxygen; Z79.4 Long term (current) use of insulin
CPT/HCPCS: 36415; 80048; 80053; 81000; 82962; 85007; 85027; 94762

== ENCOUNTER 2018-12-03 17:22 | Inpatient (IN) | payer MEDICARE, OTHER ==
[~2018-12-03] VITALS: Ht 193 cm; Wt 200.8 kg
[~2018-12-03 17:22] MED LIST: AMIT25TA9 PO; AMLO10TA7 PO; BUPR150T7 PO; EXEN2VIA SQ; INSU100I14 SQ; INSU100V16 SC; INSU300I SQ; LISI40TA PO; METF-399 PO; OXYC1TAB12 PO; PREG75CA PO
--- OUTSIDE RECORDS SUMMARY | 2018-12-03 17:29 | XMS REPORT ---
Discharge Summary 2.1 Created on: JACKIE CRUZ External Reference #: [id number] : 1965 Sex: Male Author Author SARAHI AU Unknown Address [address] [place], [place] [address] Care Team Providers Care Chief Librarian Work With Blind Name Role Phone [employer]list DARON Rajinder HATCH Xwatchlist SHARON CORTES Xwatchlist [facility] Attending [facility] SUZI [facility] APRN [facility] Functional Status No Data Found Immunization Immunization Date Status Additional Notes Code Code System MMR 02/09/2001 Completed 03 CVX influenza, unspecified formulation 03/10/2018 Completed 88 CVX influenza, injectable, quadrivalent, preservative free 04/18/2017 Completed 150 CVX Mental Status No Data Found Results BEDSIDE GLUCOSE - Collect Date/Time: 05/18/2018 11:38 [facility] [employer] [facility] [facility] ID: [id number] [address], [place], [place], [address] [facility] [employer] ID: [id number] [address], [place], [place], [address] LOINC: 22837-0 Test Value Unit Reference Range Code Code System GLUCOSE POCT 129 MG/DL L=70 H=100 96111-0 LOINC BEDSIDE GLUCOSE - Collect Date/Time: 05/18/2018 07:39 [facility] ID: [id number] [address], [place], [place], [address] [facility] [employer] ID: [id number] [address], [address] LOINC: 36786-2 Test Value Unit Reference Range Code Code System GLUCOSE POCT 119 MG/DL L=70 H=100 58904-3 LOINC CBC W/ AUTO DIFF (RFLX MAN DIFF IF IND) - Collect Date/Time: 05/18/2018 06:40 [facility] ID: [id number] [address] [facility] [address], [id number] [facility] [employer] [facility] ID: [id number] [address] [facility] [address], [address] LOINC: 40987-0 Test Value Unit Reference Range Code Code System WBC 15.0 TH/CMM L=4.5 H=10.8 34496-1 LOINC RBC 3.50 ML/CMM L=4.70 H=6.10 789-8 LOINC HGB 9.5 G/DL L=14.0 H=18.0 718-7 LOINC HCT 30.6 % L=42.0 H=52.0 4544-3 LOINC MCV 87 FL L=81 H=99 MCH 27.1 PG L=27.0 H=33.0 MCHC 31.0 G/DL L=31.0 H=36.0 RDW SD 48 FL L=36 H=50 RDW CV 15.0 % L=0.0 H=14.8 MPV 10.2 FL L=9.3 H=12.5 PLT 118 TH/CMM L=130 H=440 777-3 LOINC NRBC# 0.00 TH/CMM L=0.00 H=0.00 NRBC% 0.0 /100WBC L=0.0 H=2.0 %NEUT 85.3 % %LYMP 5.0 % %MONO 7.0 % %EOS 0.5 % %BASO 0.1 % #NEUT 12.74 TH/CMM L=2.10 H=8.20 #LYMP 0.75 TH/CMM L=0.90 H=5.20 #MONO 1.04 TH/CMM L=0.16 H=1.00 #EOS 0.08 TH/CMM L=0.00 H=0.80 #BASO 0.02 TH/CMM L=0.00 H=0.20 MANUAL DIFF SEE BELOW SEGS 86 % BANDS 0 % LYMPHS 6 % MONOS 7 % EOS 1 % BASO METAS MYELO PROS BLASTS ATYP LYMPHS RBC MORPH RENAL FUNCTION PANEL - Collect Date/Time: 05/18/2018 06:40 [facility] [facility] ID: [id number] [address], [place], [id number] [facility] [employer] ID: [id number] [address], [place], [id number] LOINC: 35011-8 Test Value Unit Reference Range Code Code System GLUCOSE 122 MG/DL L=70 H=100 2345-7 LOINC SODIUM 128 MEQ/L L=135 H=148 2951-2 LOINC POTASSIUM 4.2 MEQ/L L=3.5 H=5.3 2823-3 LOINC CHLORIDE 97 MEQ/L L=96 H=110 2075-0 LOINC CO2 19 MEQ/L L=22 H=29 2028-9 LOINC BUN 45 MG/DL L=8 H=22 3094-0 LOINC CREATININE 4.3 MG/DL L=0.6 H=1.6 2160-0 LOINC ALBUMIN 3.0 G/DL L=3.1 H=5.4 1751-7 LOINC CALCIUM 8.5 MG/DL L=8.2 H=10.6 04480-7 LOINC PHOSPHORUS 3.9 MG/DL L=2.5 H=4.5 2777-1 LOINC AGE 53 yrs GFR NonAA 15 GFR AA 18 eGFR 15 mL/min/1.7 eGFR AA* 18 mL/min/1.7 BEDSIDE GLUCOSE - Collect Date/Time: 05/17/2018 20:13 [facility] [employer] ID: [id number] [address], [place], [address] [facility] ID: [id number] [address], [place], [address] LOINC: 83891-9 Test Value Unit Reference Range Code Code System GLUCOSE POCT 83 MG/DL L=70 H=100 16055-4 LOINC BEDSIDE GLUCOSE - Collect Date/Time: 05/17/2018 17:08 [facility] ID: [id number] [address], [place], [id number] [facility] ID: [id number] [address], [place], [address] LOINC: 48318-3 Test Value Unit Reference Range Code Code System GLUCOSE POCT 87 MG/DL L=70 H=100 15879-6 LOINC SODIUM UR RANDOM - Collect Date/Time: 05/17/2018 13:27 [facility] ID: [id number] - [id number] [address], [place], [address] [facility] ID: [id number] [address], [place], [address] LOINC: 2955-3 Test Value Unit Reference Range Code Code System NA UR RANDOM 31 MEQ/L 2955-3 LOINC CREATININE UR RANDOM - Collect Date/Time: 05/17/2018 13:27 [facility] ID: [id number] [address], [place], [id number] [facility] ID: [id number] [address], [place], [address] LOINC: 2161-8 Test Value Unit Reference Range Code Code System CREAT UR RAND 224.3 MG/DL 2161-8 LOINC UA ROUTINE C&S IF IND - Collect Date/Time: 05/17/2018 13:27 [employer] ID: [id number] [address] [facility] [address], [place], [address] [facility] ID: [id number] [address] [facility] [address], [place], [address] LOINC: 08039-0 Test Value Unit Reference Range Code Code System COLOR YELLOW NL: YELLOW APPEARANCE CLOUDY NL: CLEAR SPEC GRAV >=1.030 NL: 1.002 - 1.022 pH 5.0 NL: 5 - 9 PROTEIN 30 NL: NEGATIVE mg/dl GLUCOSE 100 NL: NEGATIVE mg/dl KETONE TRACE NL: NEGATIVE mg/dl BILIRUBIN SMALL NL: NEGATIVE BLOOD SMALL NL: NEGATIVE NITRITE POSITIVE NL: NEGATIVE LEUK SCREEN MODERATE NL: NEGATIVE MICRO INDICATED? SEE BELOW WBC/HPF 50-100 NL: NEGATIVE RBC/HPF 4-10 NL: NEGATIVE CASTS/LPF NEGATIVE NL: NEGATIVE CRYSTALS TRACE AMORPH NL: NEGATIVE MUCOUS THRDS NEGATIVE NL: NEGATIVE BACTERIA 2++ NL: NEGATIVE EPITH CELLS 1+ SQUAMOUS NL: NEGATIVE TRICHOMONAS NEGATIVE NL: NEGATIVE YEAST NEGATIVE NL: NEGATIVE CULT SET UP? YES BEDSIDE GLUCOSE - Collect Date/Time: 05/17/2018 12:01 [facility] ID: [id number] [address] [facility] [address], [phone] [facility] ID: [id number] [address] [facility] [place], [place], [address] LOINC: 76850-6 Test Value Unit Reference Range Code Code System GLUCOSE POCT 142 MG/DL L=70 H=100 54724-5 [facility] BEDSIDE GLUCOSE - Collect Date/Time: 05/17/2018 07:32 [employer] ID: [id number] [address] [facility] [address], [place], [place], [address] [facility] ID: [id number] [address] [facility] [place], [address] LOINC: 45073-7 Test Value Unit Reference Range Code Code System GLUCOSE POCT 157 MG/DL L=70 H=100 94303-9 LOINC HEMOGLOBIN A1C - Collect Date/Time: 05/17/2018 06:50 [facility] ID: [id number] [address] [facility] [address], [address] [facility] [facility] ID: [id number] [address] [facility] [address] [place], [place], [address] LOINC: 08159-8 Test Value Unit Reference Range Code Code System HGB A1C 6.2 % L=4.0 H=6.4 20118-9 LOINC Est Avg Glucose 131.2 mg/dL 58332-7 LOINC CBC W/ AUTO DIFF (RFLX MAN DIFF IF IND) - Collect Date/Time: 05/17/2018 06:50 [facility] ID: [id number] [address] [facility] [address], [address] [employer] ID: [id number] [address] [facility] [address] [place], [place], [address] LOINC: 69533-0 Test Value Unit Reference Range Code Code System WBC 18.2 TH/CMM L=4.5 H=10.8 08825-6 LOINC RBC 3.55 ML/CMM L=4.70 H=6.10 789-8 LOINC HGB 10.0 G/DL L=14.0 H=18.0 718-7 LOINC HCT 31.6 % L=42.0 H=52.0 4544-3 LOINC MCV 89 FL L=81 H=99 MCH 28.2 PG L=27.0 H=33.0 MCHC 31.6 G/DL L=31.0 H=36.0 RDW SD 48 FL L=36 H=50 RDW CV 14.6 % L=0.0 H=14.8 MPV 10.7 FL L=9.3 H=12.5 PLT 128 TH/CMM L=130 H=440 777-3 LOINC NRBC# 0.00 TH/CMM L=0.00 H=0.00 NRBC% 0.0 /100WBC L=0.0 H=2.0 %NEUT 86.4 % %LYMP 4.8 % %MONO 7.5 % %EOS 0.2 % %BASO 0.2 % #NEUT 15.73 TH/CMM L=2.10 H=8.20 #LYMP 0.88 TH/CMM L=0.90 H=5.20 #MONO 1.37 TH/CMM L=0.16 H=1.00 #EOS 0.03 TH/CMM L=0.00 H=0.80 #BASO 0.03 TH/CMM L=0.00 H=0.20 MANUAL DIFF SEE BELOW SEGS 83 % BANDS 4 % LYMPHS 4 % MONOS 9 % EOS BASO METAS MYELO PROS BLASTS ATYP LYMPHS RBC MORPH RENAL FUNCTION PANEL - Collect Date/Time: 05/17/2018 06:50 [facility] ID: [id number] [address] [facility] [address], [place], [place], [address] [employer] ID: [id number] [address] [facility] [address], [place], [place], [address] LOINC: 97005-2 Test Value Unit Reference Range Code Code System GLUCOSE 159 MG/DL L=70 H=100 2345-7 LOINC SODIUM 129 MEQ/L L=135 H=148 2951-2 LOINC POTASSIUM 4.1 MEQ/L L=3.5 H=5.3 2823-3 LOINC CHLORIDE 96 MEQ/L L=96 H=110 2075-0 LOINC CO2 21 MEQ/L L=22 H=29 2028-9 LOINC BUN 34 MG/DL L=8 H=22 3094-0 LOINC CREATININE 2.5 MG/DL L=0.6 H=1.6 2160-0 LOINC ALBUMIN 3.2 G/DL L=3.1 H=5.4 1751-7 LOINC CALCIUM 8.5 MG/DL L=8.2 H=10.6 96328-4 LOINC PHOSPHORUS 3.0 MG/DL L=2.5 H=4.5 2777-1 LOINC AGE 53 yrs GFR NonAA 27 GFR AA 33 eGFR 27 mL/min/1.7 eGFR AA* 33 mL/min/1.7 LACTIC ACID - Collect Date/Time: 05/16/2018 23:05 [facility] [employer] [facility] [facility] ID: [id number] [address], [place], [place], [id number] [facility] [employer] ID: [id number] [address], [place], [place], [address] LOINC: 2524-7 Test Value Unit Reference Range Code Code System LACTIC ACID 1.7 mmol/L L=0.5 H=1.6 2524-7 [facility] - Collect Date/Time: 05/16/2018 20:58 [facility] [employer] ID: [id number] [address], [place], [place], [address] [employer] [facility] ID: [id number] [address], [place], [place], [address] LOINC: 02002-4 Test Value Unit Reference Range Code Code System GLUCOSE POCT 172 MG/DL L=70 H=100 56437-7 INC LACTIC ACID - Collect Date/Time: 05/16/2018 17:30 [facility] [employer] ID: [id number] [address], [place], [place], [address] [facility] [facility] [facility] ID: [id number] [address], [place], [place], [address] LOINC: 2524-7 Test Value Unit Reference Range Code Code System LACTIC ACID 3.6 mmol/L L=0.5 H=1.6 2524-7 LOINC BEDSIDE GLUCOSE - Collect Date/Time: 05/16/2018 17:01 [facility] ID: [id number] [address] [facility] [address] [place], [place], [address] [facility] ID: [id number] [address] [facility] [address] [place], [place], [address] LOINC: 48627-0 Test Value Unit Reference Range Code Code System GLUCOSE POCT 193 MG/DL L=70 H=100 24491-6 LOINC UA ROUTINE C&S IF IND - Collect Date/Time: 05/16/2018 13:55 [facility] ID: [id number] [address] [facility] [address] [place], [place], [address] [facility] ID: [id number] [address] [facility] [address] [place], [place], [address] LOINC: Test Value Unit Reference Range Code Code System COLOR YELLOW NL: YELLOW APPEARANCE SL CLOUDY NL: CLEAR SPEC GRAV >=1.030 NL: 1.002 - 1.022 pH 5.5 NL: 5 - 9 PROTEIN 100 NL: NEGATIVE mg/dl GLUCOSE 100 NL: NEGATIVE mg/dl KETONE 15 NL: NEGATIVE mg/dl BILIRUBIN SMALL NL: NEGATIVE BLOOD MODERATE NL: NEGATIVE NITRITE NEGATIVE NL: NEGATIVE LEUK SCREEN SMALL NL: NEGATIVE MICRO INDICATED? SEE BELOW WBC/HPF 10-20 NL: NEGATIVE RBC/HPF 4-10 NL: NEGATIVE CASTS/LPF FEW HYALINE NL: NEGATIVE CRYSTALS NEGATIVE NL: NEGATIVE MUCOUS THRDS NEGATIVE NL: NEGATIVE BACTERIA 3+++ NL: NEGATIVE EPITH CELLS FEW SQUAMOUS NL: NEGATIVE TRICHOMONAS NEGATIVE NL: NEGATIVE YEAST NEGATIVE NL: NEGATIVE CULT SET UP? YES CX CHEST 2 VIEW - Completed: 05/16/2018 13:51 LOINC: EXAMINATION:CX CHEST 2 VIEWREASON FOR EXAM:Fever COMPARISON:12/11/2013FINDINGS:The cardiac silhouette is borderline enlarged. Low-grade right basilar pulmonary opacities.No pleural effusion or pneumothorax. IMPRESSION:Right basilar atelectasis versus subtle changes of infection.Reviewed and Electronically Signed by: Elmo Miranda Date/Time: 05/16/2018 2:37 PMJob ID#: [id number] Social History Type Status Start Date End Date Code Code System Smoking History Never smoker (Never Smoked) 912117693 SNOMED-CT Vital Signs Vital Sign Value Unit [place] Value [place] Unit Date/Time Recent/Initial? Code Code System Body Mass Index 57.45 kg/m2 05/18/2018 05:14 Most Recent 39413-4 LOINC Body Mass Index 65.73 kg/m2 05/16/2018 16:15 Inital 00307-1 LOINC Systolic Blood Pressure 127 mm[Hg] 05/18/2018 11:25 Most Recent 8480-6 LOINC Diastolic Blood Pressure 68 mm[Hg] 05/18/2018 11:25 Most Recent 8462-4 LOINC Systolic Blood Pressure 146 mm[Hg] 05/16/2018 16:15 Inital 8480-6 LOINC Diastolic Blood Pressure 69 mm[Hg] 05/16/2018 16:15 Inital 8462-4 LOINC Body Surface Area 3.39 m2 05/18/2018 05:14 Most Recent 3140-1 LOINC Body Surface Area 3.62 m2 05/16/2018 16:15 Inital 3140-1 LOINC Height 193.0400 cm 76.00 in 05/18/2018 05:14 Most Recent 8302-2 LOINC Height 193.0400 cm 76.00 in 05/16/2018 16:15 Inital 8302-2 LOINC O2 Saturation 96 % 05/18/2018 11:25 Most Recent 05916-7 LOINC O2 Saturation 96 % 05/16/2018 16:15 Inital 97298-9 LOINC Pulse 96.0 /min 05/18/2018 11:25 Most Recent 8867-4 LOINC Pulse 118.0 /min 05/16/2018 16:15 [facility] LOINC Respiration 20 /min 05/18/2018 11:25 Most Recent 9279-1 LOINC Respiration 20 /min 05/16/2018 16:15 Inital 9279-1 INC Temperature 37.1 Indira 98.8 F 05/18/2018 11:25 Most Recent 83105 INC Temperature 37.9 Indira 100.2 F 05/16/2018 16:15 Inital 8310-5 INC Weight 214.0956 kg 472.00 lbs 05/18/2018 05:14 Most Recent 64471-7 INC Weight 244.9399 kg 540.00 lbs 05/16/2018 16:15 Inital 66081-4 [facility] Assessment You had the following problems: CELLULITIS SEPSIS DIABETES 2 Hospital Discharge Instructions Should you have any questions prior to discharge, please contact a member of your healthcare team. If you have left the hospital and have any questions, please contact your primary care physician. Reason For Referral No Data Found Hospital Course You were admitted to [facility] on 05/16/2018 15:53 with a principal diagnosis of Sepsis, unspecified organism You were discharged from [facility] on 05/18/2018 11:53 Medications Medication Start Date End Date Route Frequency Dose Code Code System VANCOMYCIN [PREDEFINED] IV: 501-1200MG 05/16/2018 05/16/2018 IV PIGGY X1 6316330 RxNorm ~~~VANCOMYCIN: 1 GM VIAL 1000 MG RxNorm ~~~NACL 0.9% 250ML IV BAG (7983-02) 250 ML RxNorm ~~~REFRIGERATE 1 EA RxNorm FLUVIRIN (INFLUENZA) VACCINE 0.5ML/DOSE 05/16/2018 05/16/2018 IM OPTIONS X1 0.5 ML 3767644 RxNorm PNEUMOCOCCAL VACCINE (SINGLE DOSE) 05/16/2018 Unknown IM OPTIONS PRN 0.5 ML 8435383 RxNorm PERCOCET 10/325MG TABLET 05/16/2018 Unknown BY MOUTH PRN 1 unit(s) 5796614 RxNorm ROCEPHIN IV [PREDEFINED]: 1GM IV Q 24HR 05/16/2018 05/23/2018 IV PIGGY Q24H 100 ml/hr 6954654 RxNorm ~~~cefTRIAXone [ROCEPHIN] 1 GM ADV VIAL 1 GM RxNorm ~~~NACL 0.9% ADD-VANTAGE: 50 ML BAG 50 ML RxNorm ACETAMINOPHEN ES [TYLENOL] TAB : 500 MG 05/16/2018 Unknown BY MOUTH PRN 500 MG 175118 RxNorm TALITA-COLACE (NEW FORMULATION) TABLET 05/16/2018 Unknown BY MOUTH BID 2 unit(s) 655756 RxNorm MUPIROCIN (BACTROBAN) 2% OINTMENT: 22 GM 05/16/2018 05/23/2018 TOPICAL PRN 1 unit(s) 633239 RxNorm NF-Toujeo Subcutaneous Solution 300U/1ML 05/16/2018 Unknown SUBCUTANEOUS HS 30 U 3123253 RxNorm INSULIN [NOVOLOG] 100UNITS/ML (SQ) 10ML 05/17/2018 Unknown SUBCUTANEOUS OPTIONS TID 50 UNIT(S) 467928 RxNorm NS 1000 ML IV [PREDEFINED] (7983) 05/17/2018 Unknown INTRAVENOUS CONT IV 200 ml/hr 3126513 RxNorm ~~~NACL 0.9% (7983) 1000ML IV BAG 1000 ML RxNorm HEPARIN: 5000 UNITS/1ML VIAL 05/17/2018 Unknown SUBCUTANEOUS OPTIONS Q8H 5000 UNITS 2855939 RxNorm ONDANSETRON [ZOFRAN] INJ 4 MG/2 ML VIAL 05/17/2018 Unknown SLOW IV PUSH PRN Q 6 HRS 4 MG 9839735 RxNorm VANCOMYCIN [PREDEFINED] IV : > 2000 MG 05/17/2018 05/24/2018 IV PIGGY Q24H 250 ml/hr RxNorm ~~~VANCOMYCIN: 1 GM VIAL 2500 MG RxNorm ~~~NACL 0.9% 500 ML IV BAG (7983-03) 500 ML RxNorm ~~~REFRIGERATE 1 EA RxNorm Procedures Procedure Name Date Status Code Code System Cholecystectomy completed 14762399 SNOMED CT REPAIR OF CIRCUMCISION completed 511610111 SNOMED CT Implants No Data Found Problems Problem Start Date Resolved Date Status Code Code System CELLULITIS active 203819987 SNOMED-CT SEPSIS active 33739631 SNOMED-CT DIABETES 2 active 44757250 SNOMED-CT HTN 05/16/2018 resolved 22153692 SNOMED-CT Allergies Allergy Substance Reaction Severity Start Date Concern Status Code Code System No Known Drug Allergies Active RxNorm Plan of Treatment No Data Found Encounters No Data Found Goals No Data Found Discharge Medications No Data Found Discharge Diagnosis Discharge Diagnosis Diagnosis Code Start Date Sepsis, unspecified organism [id number] 05/16/2018 Health Concerns Section No Data Found
--- OUTSIDE RECORDS SUMMARY | 2018-12-03 17:37 | XMS REPORT ---
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 709434188 Problem Type 2 diabetes mellitus with hyperglycemia E11.65 Active 66888687 Problem Morbid obesity due to excess calories E66.01 Active 519580132 Problem Severe major depression F32.2 Active 406599801 Problem Charcot foot due to diabetes mellitus E11.610 Active 06728692 Problem Hypersomnolence G47.10 Active 14136200 Problem Depression, unspecified depression type F32.9 Active 07664691 Problem Essential hypertension I10 Active 90044710 Problem BMI 40.0-44.9, adult Z68.41 Active 875988785 Problem Neuropathy involving both lower extremities G57.93 Active 692439399 Problem Acute renal failure, unspecified acute renal failure type N17.9 Active 77684711 ALLERGIES No Information ENCOUNTERS Encounter Location Date Diagnosis [facility] [address] [id number] [place] [address] November, [facility] [address] [id number] [place] [address] November, Swelling of lower extremity M79.89 ; Morbid obesity E66.01 and Essential hypertension I10 [facility] [address] [id number] [place] [address] November, [facility] [address] [id number] [place] [address] November, Essential hypertension I10 ; Swelling of lower extremity M79.89 and Morbid obesity E66.01 [facility] [address] [id number] [place] [address] Oct, Charcot foot due to diabetes mellitus E11.610 [facility]Max[facility] SystemsAG[facility] [address] [id number] [place] [address] Oct, Type 2 diabetes mellitus with hyperglycemia E11.65 ; residential current use of insulin Z79.4 ; Morbid obesity E66.01 ; Depression, unspecified depression type F32.9 and Essential hypertension I10 [facility]Max[facility] Environmental SystemsAGRAW[facility] [address] [id number] [place] [address] Sep, Cellulitis of right leg L03.115 and Morbid obesity E66.01 [facility]Max[facility] Environmental SystemsAGRAWAL [address] [id number] [place] [address] Sep, Type 2 diabetes mellitus with hyperglycemia E11.65 ; 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 ; Depression, unspecified depression type F32.9 ; Hypersomnolence G47.10 and Morbid obesity E66.01 [facility]ITALMax[facility] Environmental SystemsAGRAW[facility] [address] [id number] [place] [address] Sep, Charcot foot due to diabetes mellitus E11.610 [facility]Max[facility] Environmental SystemsAGRAWAL [address] [id number] [place] [address] Aug, Severe major depression F32.2 ; Swelling of both lower extremities M79.89 and BMI 50.0-59.9, adult Z68.43 [facility]Ryan[facility] [address] [id number] [place] [address] Aug, Cellulitis of right lower extremity L03.115 ; Type 2 diabetes mellitus with hyperglycemia E11.65 ; Charcot foot due to diabetes mellitus E11.610 and BMI 50.0-59.9, adult Z68.43 [facility] [address] [id number] [place] [address] Aug, Cellulitis of right lower extremity L03.115 and BMI 50.0-59.9, adult Z68.43 [facility] [address] [id number] [place] [address] Jul, Cellulitis of right lower extremity L03.115 and BMI 50.0-59.9, adult Z68.43 [facility] [address] [id number] [place] [address] Jul, Cellulitis of right lower extremity L03.115 and BMI 50.0-59.9, adult Z68.43 [facility]ITALSE[facility] [place] [address] [id number] [place] [address] Jul, Type 2 diabetes mellitus with hyperglycemia E11.65 [facility] [place] [address] [id number] [place] [address] Jul, Type 2 diabetes mellitus with hyperglycemia E11.65 ; 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115 [facility]ITALMotion DisplaysLuz [place] [address] [id number] [place] [address] Jun, [facility] [address] [id number] [place] [address] Jun, Type 2 diabetes mellitus with hyperglycemia E11.65 ; 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 ; BMI 50.0-59.9, adult Z68.43 ; Depression, unspecified depression type F32.9 ; Essential hypertension I10 and Acute renal failure, unspecified acute renal failure type N17.9 [facility] [address] [id number] [place] [address] Jun, [facility]ITALTelinet [place] [address] [id number] [place] [address] Jun, Acute renal failure, unspecified acute renal failure type N17.9 and BMI 50.0- 59.9, adult Z68.43 [facility] [place] [address] [id number] [place] [address] May, [facility]ALSE[facility] [address] [facility] [id number] [place] [address] May, [facility] [place] [address] [id number] [place] [address] May, Cellulitis of right lower extremity L03.115 and BMI 50.0-59.9, adult Z68.43 [facility] [place] [address] [id number] [place] [address] Apr, [facility] [place] [address] [id number] [place] [address] Apr, Depression, unspecified depression type F32.9 ; BMI 50.0-59.9, adult Z68.43 and Encounter for immunization Z23 [facility] [place] [address] [id number] [place] [address] Apr, Charcot foot due to diabetes mellitus E11.610 [facility] [place] [address] [id number] [place] [address] Apr, Type 2 diabetes mellitus with hyperglycemia E11.65 [facility] [place] [address] [id number] [place] [address] Mar, [facility] [place] [address] [id number] [place] [address] Mar, Depression, unspecified depression type F32.9 ; Neuropathy involving both lower extremities G57.93 and Diarrhea, unspecified type R19.7 [facility] [place] [address] [id number] [place] [address] Mar, Charcot foot due to diabetes mellitus E11.610 [facility] [place] [address] [id number] [place] [address] Mar, Type 2 diabetes mellitus with hyperglycemia E11.65 [facility] [place] [address] [id number] [place] [address] Feb, Type 2 diabetes mellitus with hyperglycemia E11.65 ; Charcot foot due to diabetes mellitus E11.610 and BMI 50.0-59.9, adult Z68.43 [facility] [place] [address] [id number] [place] [address] Feb, [facility] [place] [address] [id number] [place] [address] Feb, [facility] [place] [address] [id number] [place] [address] Jan, Depression, unspecified depression type F32.9 [facility] [place] [address] [id number] [place] [address] Jan, Charcot foot due to diabetes mellitus E11.610 [facility] [address] [facility] [id number] [place] [address] Dec, [facility] [place] [address] [id number] [place] [address] Dec, Charcot foot due to diabetes mellitus E11.610 [facility] [place] [address] [id number] [place] [address] Dec, Neuropathy involving both lower extremities G57.93 [facility] [place] [address] [id number] [place] [address] Dec, [facility] [place] [address] [id number] [place] [address] November, [facility] [place] [address] [id number] [place] [address] November, [facility] [place] [address] [id number] [place] [address] November, [facility] [place] [address] [id number] [place] [address] November, [facility] [place] [address] [id number] [place] [address] November, Type 2 diabetes mellitus with hyperglycemia E11.65 ; residential current use of insulin Z79.4 ; Morbid obesity due to excess calories E66.01 ; Charcot foot due to diabetes mellitus E11.610 ; Neuropathy involving both lower extremities G57.93 ; BMI 50.0-59.9, adult Z68.43 ; Depression, unspecified depression type F32.9 and Scrotal swelling N50.89 [facility] [place] [address] [id number] [place] [address] November, [facility] [place] [address] [id number] [place] [address] Oct, Charcot foot due to diabetes mellitus E11.610 [facility]ALSEL[facility] [place] [address] [id number] [place] [address] Sep, Type 2 diabetes mellitus with hyperglycemia E11.65 [facility] [place] [address] [id number] [place] [address] Sep, Charcot foot due to diabetes mellitus E11.610 [facility]ALSEL[facility] [place] [address] [id number] [place] [address] Sep, [facility] [place] [address] [id number] [place] [address] Sep, [facility]ALSE[facility] [place] [address] [id number] [place] [address] Sep, Scrotal swelling N50.89 ; Fungal infection of the groin B35.6 and BMI 50.0- 59.9, adult Z68.43 [facility]ALSE[facility] [place] [address] [id number] [place] [address] Sep, Scrotal swelling N50.89 [facility] [place] [address] [id number] [place] [address] Sep, Scrotal swelling N50.89 [facility] [place] [address] [id number] [place] [address] Aug, Scrotal swelling N50.89 [facility] [place] [address] [id number] [place] [address] Aug, Charcot foot due to diabetes mellitus E11.610 [facility] [place] [address] [id number] [place] [address] 09 Aug, 2017 Type 2 diabetes mellitus with hyperglycemia E11.65 ; 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 ; Morbid obesity due to excess calories E66.01 ; Charcot foot due to diabetes mellitus E11.610 ; Depression, unspecified depression type F32.9 and Essential hypertension I10 [facility] [address] [facility] [id number] [place] [address] Aug, [facility] [place] [address] [id number] [place] [address] Aug, Scrotal swelling N50.89 and Depression, unspecified depression type F32.9 [place] [address] [facility] [id number] [place] [address] Jul, [facility] [address] [facility] [id number], [place] [address] Jul, [facility] [address] [id number] [place] [address] Jul, [email or web address] [place] [address] [id number] [place] [address] Jul, Scrotal swelling N50.89 [facility] [place] [address] [id number] [place] [address] Jul, [email or web address] [place] [address] [id number] [place] [address] Jul, Scrotal swelling N50.89 [facility] [place] [address] [id number] [place] [address] Jul, Charcot foot due to diabetes mellitus E11.610 [facility] [place] [address] [id number] [place] [address] Jul, Depression, unspecified depression type F32.9 and BMI 50.0-59.9, adult Z68.43 [facility] [place] [address] [id number] [place] [address] Jun, Depression, unspecified depression type F32.9 ; Charcot foot due to diabetes mellitus E11.610 and BMI 50.0-59.9, adult Z68.43 [email or web address] [place] [address] [id number] [place] [address] Jun, [facility] [place] [address] [id number] [place] [address] May, BMI 40.0-44.9, adult Z68.41 ; Type 2 diabetes mellitus with hyperglycemia E11.65 ; Essential hypertension I10 ; Depression, unspecified depression type F32.9 ; Charcot foot due to diabetes mellitus E11.610 and residential current use of insulin Z79.4 [facility] [place] [address] [id number] [place] [address] May, [facility] [place] [address] [id number] [place] [address] May, [facility] [place] [address] [id number] [place] [address] May, [email or web address] [place] [address] [id number] [place] [address] Apr, [address] [id number] [place] [address] Apr, [email or web address] [place] [address] [id number] [place] [address] Apr, [facility]ITALT[facility] [place] [address] [id number] [place] [address] Apr, Type 2 diabetes mellitus with hyperglycemia E11.65 and Depression, unspecified depression type F32.9 [facility] [place] [address] [id number] [place] [address] Apr, Encounter for immunization Z23 ; Type 2 diabetes mellitus with hyperglycemia E11.65 ; 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 ; Charcot foot due to diabetes mellitus E11.610 and Essential hypertension I10 [facility] [place] [address] [id number] [place] [address] Mar, Essential hypertension I10 ; Charcot foot due to diabetes mellitus E11.610 and Type 2 diabetes mellitus with hyperglycemia E11.65 [facility] [place] [address] [id number] [place] [address] Mar, [place] [address] [facility] [id number] [place] [address] Feb, [facility] [place] [address] [id number] [place] [address] Feb, Type 2 diabetes mellitus with hyperglycemia E11.65 ; Essential hypertension I10 ; residential current use of insulin Z79.4 ; Morbid obesity due to excess calories E66.01 ; Charcot foot due to diabetes mellitus E11.610 and Depression, unspecified depression type F32.9 [facility] [place] [address] [id number] [place] [address] Jan, [email or web address] [place] [address] [id number] [place] [address] Jan, [email or web address] [place] [address] [id number] [place] [address] Jan, [facility] [address] [facility] [id number] [place] [address] Jan, [email or web address] [place] [address] [id number] [place] [address] Dec, Charcot foot due to diabetes mellitus E11.610 [facility] [place] [address] [id number] [place] [address] November, [facility] [place] [address] [id number] [place] [address] November, Type 2 diabetes mellitus with hyperglycemia E11.65 ; 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 and Charcot foot due to diabetes mellitus E11.610 [facility] [place] [address] [id number] [place] [address] November, Bronchitis J40 [facility] [place] [address] [id number] [place] [address] Oct, Cellulitis of right lower extremity L03.115 and Charcot foot due to diabetes mellitus E11.610 [facility] [place] [address] [id number] [place] [address] Sep, [facility] [address] [facility] [id number] [place] [address] Sep, [email or web address] [place] [address] [id number] [place] [address] 14 Sep, 2016 Bronchitis J40 [facility] [address] [id number] [place] [address] 08 Sep, 2016 [facility] [place] [address] [id number] [place] [address] Sep, Bronchitis J40 [facility] [place] [address] [id number] [place] [address] Sep, Type 2 diabetes mellitus with hyperglycemia E11.65 [facility] [place] [address] [id number] [place] [address] Sep, [facility] [address] [id number], [place] [address] Aug, [facility] [place] [address] [id number] [place] [address] Aug, Type 2 diabetes mellitus with hyperglycemia E11.65 ; Depression, unspecified depression type F32.9 ; Charcot foot due to diabetes mellitus E11.610 and Encounter for immunization Z23 [facility] [place] [address] [id number] [place] [address] Aug, [facility] [place] [address] [id number] [place] [address] Jul, Type 2 diabetes mellitus with hyperglycemia E11.65 ; 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 ; Morbid obesity due to excess calories E66.01 and Charcot foot due to diabetes mellitus E11.610 [facility] [place] [address] [id number] [place] [address] Jun, Type 2 diabetes mellitus with hyperglycemia E11.65 ; residential current use of insulin Z79.4 ; Morbid obesity due to excess calories E66.01 ; Charcot foot due to diabetes mellitus E11.610 and Encounter for immunization Z23 [facility] [address] [id number] [place] [address] Jun, [facility] [address] [id number], [place] [address] Jun, [facility] [place] [address] [id number] [place] [address] Jun, Fever in other diseases R50.81 [facility] [address] [id number] [place] [address] May, [facility] [place] [address] [id number] [place] [address] 14 May, 2016 [facility] [address] [id number] [place] [address] 11 May, 2016 Type 2 diabetes mellitus with hyperglycemia E11.65 [facility] [address] [id number] [place] [address] 2016 Type 2 diabetes mellitus with hyperglycemia E11.65 ; 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 second toe amputated 09/2018 Hospitalization History surgeries Hospitalization History Sepsis 05/18/18
--- OUTSIDE RECORDS SUMMARY | 2018-12-03 17:38 | XMS REPORT ---
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 Role Phone CLAUDIA ARCHER Unavailable PROBLEMS Type Condition ICD9-CM Code JDX93-GW Code Onset Dates Condition Status SNOMED Code Problem Charcot foot due to diabetes mellitus E11.610 Active 68963130 Problem Depression, unspecified depression type F32.9 Active 83962405 Problem Neuropathy involving both lower extremities G57.93 Active 413672395 Problem BMI 40.0-44.9, adult Z68.41 Active 261183428 Problem Type 2 diabetes mellitus with hyperglycemia E11.65 Active 67611100 Problem prison current use of insulin Z79.4 Active 086238804 Problem Essential hypertension I10 Active 38280844 Problem Morbid obesity due to excess calories E66.01 Active 376268179 ALLERGIES No Information ENCOUNTERS Encounter Location Date Diagnosis [facility] [address] [id number] [place] [address] Jun, [facility] [address] [id number] [place] [address] Jun, [facility] [address] [id number] [place] [address] Jun, Acute renal failure, unspecified acute renal failure type N17.9 and BMI 50.0- 59.9, adult Z68.43 [facility]SwapDriveAGRAWAL [address] [id number] [place] [address] May, [facility] [address] [facility] [id number] [place] [address] May, [facility] [place] [address] [id number] [place] [address] May, Cellulitis of right lower extremity L03.115 and BMI 50.0-59.9, adult Z68.43 [facility] [place] [address] [id number] [place] [address] Apr, [facility] [place] [address] [id number] [place] [address] Apr, Depression, unspecified depression type F32.9 ; BMI 50.0-59.9, adult Z68.43 and Encounter for immunization Z23 [facility] [place] [address] [id number] [place] [address] 09 Apr, 2018 Charcot foot due to diabetes mellitus E11.610 [facility] [place] [address] [id number] [place] [address] Apr, Type 2 diabetes mellitus with hyperglycemia E11.65 [facility] [place] [address] [id number] [place] [address] Mar, [facility] [place] [address] [id number] [place] [address] Mar, Depression, unspecified depression type F32.9 ; Neuropathy involving both lower extremities G57.93 and Diarrhea, unspecified type R19.7 [facility] [place] [address] [id number] [place] [address] Mar, Charcot foot due to diabetes mellitus E11.610 [facility] [place] [address] [id number] [place] [address] Mar, Type 2 diabetes mellitus with hyperglycemia E11.65 [facility] [place] [address] [id number] [place] [address] Feb, Type 2 diabetes mellitus with hyperglycemia E11.65 ; Charcot foot due to diabetes mellitus E11.610 and BMI 50.0-59.9, adult Z68.43 [facility] [place] [address] [id number] [place] [address] Feb, [facility] MELISSA [address] [id number] [place] [address] Feb, [facility] [place] [address] [id number] [place] [address] Jan, Depression, unspecified depression type F32.9 [facility] [place] [address] [id number] [place] [address] Jan, Charcot foot due to diabetes mellitus E11.610 [facility] [address] [facility] [id number] [place] [address] Dec, [facility] [place] [address] [id number] [place] [address] Dec, Charcot foot due to diabetes mellitus E11.610 [facility] [place] [address] [id number] [place] [address] Dec, Neuropathy involving both lower extremities G57.93 [facility] [place] [address] [id number] [place] [address] Dec, [facility] [place] [address] [id number] [place] [address] November, [facility] [place] [address] [id number] [place] [address] November, [facility] [place] [address] [id number] [place] [address] November, [facility] [place] [address] [id number] [place] [address] November, [facility] [place] [address] [id number] [place] [address] November, Type 2 diabetes mellitus with hyperglycemia E11.65 ; prison current use of insulin Z79.4 ; Morbid obesity due to excess calories E66.01 ; Charcot foot due to diabetes mellitus E11.610 ; Neuropathy involving both lower extremities G57.93 ; BMI 50.0-59.9, adult Z68.43 ; Depression, unspecified depression type F32.9 and Scrotal swelling N50.89 [facility] [place] [address] [id number] [place] [address] November, [facility] [place] [address] [id number] [place] [address] Oct, Charcot foot due to diabetes mellitus E11.610 [facility] [place] [address] [id number] [place] [address] Sep, Type 2 diabetes mellitus with hyperglycemia E11.65 [facility] [place] [address] [id number] [place] [address] Sep, Charcot foot due to diabetes mellitus E11.610 [facility] [place] [address] [id number] [place] [address] Sep, [facility] [place] [address] [id number] [place] [address] Sep, [facility] [place] [address] [id number] [place] [address] Sep, Scrotal swelling N50.89 ; Fungal infection of the groin B35.6 and BMI 50.0- 59.9, adult Z68.43 [facility] [place] [address] [id number] [place] [address] Sep, Scrotal swelling N50.89 [facility] [place] [address] [id number] [place] [address] Sep, Scrotal swelling N50.89 [facility] [place] [address] [id number] [place] [address] Aug, Scrotal swelling N50.89 [facility] [place] [address] [id number] [place] [address] Aug, Charcot foot due to diabetes mellitus E11.610 [facility] [place] [address] [id number] [place] [address] 09 Aug, 2017 Type 2 diabetes mellitus with hyperglycemia E11.65 ; local intermodal truck driver current use of insulin Z79.4 ; Morbid obesity due to excess calories E66.01 ; Charcot foot due to diabetes mellitus E11.610 ; Depression, unspecified depression type F32.9 and Essential hypertension I10 [place] [address] [facility] [id number] [place] [address] 07 Aug, 2017 [facility] [place] [address] [id number] [place] [address] Aug, Scrotal swelling N50.89 and Depression, unspecified depression type F32.9 [place] [address] [facility] [id number] [place] [address] Jul, [facility] [address] [facility] [id number] [place] [address] Jul, [facility] [address] [id number] [place] [address] Jul, [facility] [place] [address] [id number] [place] [address] Jul, Scrotal swelling N50.89 [facility] [place] [address] [id number] [place] [address] Jul, [facility] [place] [address] [id number] [place] [address] Jul, Scrotal swelling N50.89 [facility] [place] [address] [id number] [place] [address] Jul, Charcot foot due to diabetes mellitus E11.610 [facility] [place] [address] [id number] [place] [address] Jul, Depression, unspecified depression type F32.9 and BMI 50.0-59.9, adult Z68.43 [facility]ALLifePayLuz [place] [address] [id number] [place] [address] Jun, Depression, unspecified depression type F32.9 ; Charcot foot due to diabetes mellitus E11.610 and BMI 50.0-59.9, adult Z68.43 [facility]ifePayLuz [place] [address] [id number] [place] [address] Jun, [facility] [place] [address] [id number] [place] [address] May, BMI 40.0-44.9, adult Z68.41 ; Type 2 diabetes mellitus with hyperglycemia E11.65 ; Essential hypertension I10 ; Depression, unspecified depression type F32.9 ; Charcot foot due to diabetes mellitus E11.610 and prison current use of insulin Z79.4 [facility] [place] [address] [id number] [place] [address] May, [facility] [place] [address] [id number] [place] [address] May, [facility] [place] [address] [id number] [place] [address] May, [facility] [place] [address] [id number] [place] [address] Apr, [place] [address] [facility] [id number] [place] [address] Apr, [facility] [place] [address] [id number] [place] [address] Apr, [facility] [place] [address] [id number] [place] [address] Apr, Type 2 diabetes mellitus with hyperglycemia E11.65 and Depression, unspecified depression type F32.9 [facility] [place] [address] [id number] [place] [address] Apr, Encounter for immunization Z23 ; Type 2 diabetes mellitus with hyperglycemia E11.65 ; prison current use of insulin Z79.4 ; Charcot foot due to diabetes mellitus E11.610 and Essential hypertension I10 [facility] [place] [address] [id number] [place] [address] Mar, Essential hypertension I10 ; Charcot foot due to diabetes mellitus E11.610 and Type 2 diabetes mellitus with hyperglycemia E11.65 [facility] [place] [address] [id number] [place] [address] Mar, [place] [address] [facility] [id number] [place] [address] Feb, [facility] [place] [address] [id number] [place] [address] Feb, Type 2 diabetes mellitus with hyperglycemia E11.65 ; Essential hypertension I10 ; prison current use of insulin Z79.4 ; Morbid obesity due to excess calories E66.01 ; Charcot foot due to diabetes mellitus E11.610 and Depression, unspecified depression type F32.9 [facility] [place] [address] [id number] [place] [address] Jan, [facility] [place] [address] [id number] [place] [address] Jan, [facility] [place] [address] [id number] [place] [address] Jan, [facility] [address] [facility] [id number] [place] [address] Jan, [facility] [place] [address] [id number] [place] [address] Dec, Charcot foot due to diabetes mellitus E11.610 [facility] [place] [address] [id number] [place] [address] November, [facility] [place] [address] [id number] [place] [address] November, Type 2 diabetes mellitus with hyperglycemia E11.65 ; local intermodal truck driver current use of insulin Z79.4 and Charcot foot due to diabetes mellitus E11.610 [facility] [place] [address] [id number] [place] [address] November, Bronchitis J40 [facility] [place] [address] [id number] [place] [address] Oct, Cellulitis of right lower extremity L03.115 and Charcot foot due to diabetes mellitus E11.610 [facility] [place] [address] [id number] [place] [address] Sep, [facility] [address] [facility] [id number] [place] [address] Sep, [facility] [place] [address] [id number] [place] [address] Sep, Bronchitis J40 [facility] [id number] [place] [address] Sep, [facility] [place] [address] [id number] [place] [address] Sep, Bronchitis J40 [facility] [place] [address] [id number] [place] [address] Sep, Type 2 diabetes mellitus with hyperglycemia E11.65 [facility] [place] [address] [id number] [place] [address] Sep, [place] [address] [id number] [address] Aug, [facility] [place] [address] [id number] [place] [address] Aug, Type 2 diabetes mellitus with hyperglycemia E11.65 ; Depression, unspecified depression type F32.9 ; Charcot foot due to diabetes mellitus E11.610 and Encounter for immunization Z23 [facility] [place] [address] [id number] [place] [address] Aug, [facility] [place] [address] [id number] [place] [address] Jul, Type 2 diabetes mellitus with hyperglycemia E11.65 ; local intermodal truck driver current use of insulin Z79.4 ; Morbid obesity due to excess calories E66.01 and Charcot foot due to diabetes mellitus E11.610 [facility] [place] [address] [id number] [place] [address] Jun, Type 2 diabetes mellitus with hyperglycemia E11.65 ; local intermodal truck driver current use of insulin Z79.4 ; Morbid obesity due to excess calories E66.01 ; Charcot foot due to diabetes mellitus E11.610 and Encounter for immunization Z23 [place] [address] [place] [id number] [place] [address] Jun, [place] [address] [id number] [address] Jun, [facility] [place] [address] [id number] [place] [address] Jun, Fever in other diseases R50.81 [facility] [place] [address] [id number] [place] [address] May, [facility] [place] [address] [id number] [place] [address] May, [facility] [place] [address] [id number] [place] [address] May, Type 2 diabetes mellitus with hyperglycemia E11.65 [facility] [place] [address] [id number] [place] [address] May, Type 2 diabetes mellitus with hyperglycemia E11.65 ; prison current use of insulin Z79.4 ; Morbid obesity due to excess calories E66.01 ; Charcot foot due to diabetes mellitus E11.610 and Depression, unspecified depression type F32.9 IMMUNIZATIONS No Known Immunizations SOCIAL HISTORY Never Assessed REASON FOR VISIT gentamycin order PLAN OF CARE VITAL SIGNS MEDICATIONS Medication Instructions Dosage Frequency Start Date End Date Duration Status Gentamicin Sulfate 0.1 % Externally apply to wound daily as directed Jun, Active RESULTS No Results PROCEDURES No [...] Surgical History Lt foot Hospitalization History surgeries Hospitalization History Sepsis 05/18/18
--- OUTSIDE RECORDS SUMMARY | 2018-12-03 17:38 | XMS REPORT ---
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 938169786 Problem Charcot foot due to diabetes mellitus E11.610 Active 22632401 Problem Acute renal failure, unspecified acute renal failure type N17.9 Active 63950096 Problem Neuropathy involving both lower extremities G57.93 Active 087724666 Problem Morbid obesity due to excess calories E66.01 Active 261368558 Problem Type 2 diabetes mellitus with hyperglycemia E11.65 Active 52266091 Problem BMI 40.0-44.9, adult Z68.41 Active 362864265 Problem Essential hypertension I10 Active 46362936 ALLERGIES No Information ENCOUNTERS Encounter Location Date Diagnosis [facility] [id number] [address] Jul, [facility] [address] [id number] [place] [address] Jun, [facility] [address] [id number] [place] [address] Jun, Type 2 diabetes mellitus with hyperglycemia E11.65 ; prison current use of insulin Z79.4 ; BMI 50.0-59.9, adult Z68.43 ; Depression, unspecified depression type F32.9 ; Essential hypertension I10 and Acute renal failure, unspecified acute renal failure type N17.9 [facility] [address] [id number] [place] [address] Jun, [facility] [address] [id number] [place] [address] Jun, Acute renal failure, unspecified acute renal failure type N17.9 and BMI 50.0- 59.9, adult Z68.43 [facility] [place] [address] [id number] [place] [address] May, [facility] [address] [facility] [place] [id number] [place] [address] May, [facility] [place] [address] [id number] [place] [address] May, Cellulitis of right lower extremity L03.115 and BMI 50.0-59.9, adult Z68.43 [facility] [place] [address] [id number] [place] [address] Apr, [facility] [place] [address] [id number] [place] [address] 18 Apr, 2018 Depression, unspecified depression type F32.9 ; BMI 50.0-59.9, adult Z68.43 and Encounter for immunization Z23 [facility] [place] [address] [id number] [place] [address] 09 Apr, 2018 Charcot foot due to diabetes mellitus E11.610 [facility] [place] [address] [id number] [place] [address] 02 Apr, 2018 Type 2 diabetes mellitus with hyperglycemia E11.65 [facility] [place] [address] [id number] [place] [address] 28 Mar, 2018 [facility] [place] [address] [id number] [place] [address] 20 Mar, 2018 Depression, unspecified depression type F32.9 ; Neuropathy involving both lower extremities G57.93 and Diarrhea, unspecified type R19.7 [facility] [place] [address] [id number] [place] [address] 13 Mar, 2018 Charcot foot due to diabetes mellitus E11.610 [facility] [place] [address] [id number] [place] [address] 10 Mar, 2018 Type 2 diabetes mellitus with hyperglycemia E11.65 [facility] [place] [address] [id number] [place] [address] Feb, Type 2 diabetes mellitus with hyperglycemia E11.65 ; Charcot foot due to diabetes mellitus E11.610 and BMI 50.0-59.9, adult Z68.43 [facility] [place] [address] [id number] [place] [address] Feb, [facility] [place] [address] [id number] [place] [address] Feb, [facility] [place] [address] [id number] [place] [address] Jan, Depression, unspecified depression type F32.9 [facility] [place] [address] [id number] [place] [address] Jan, Charcot foot due to diabetes mellitus E11.[address] [facility] [address] [facility] [place] [id number] [place] [address] Dec, [facility] [place] [address] [id number] [place] [address] Dec, Charcot foot due to diabetes mellitus E11.[address] [facility] [place] [address] [id number] [place] [address] Dec, Neuropathy involving both lower extremities G57.[address] [facility] [place] [address] [id number] [place] [address] Dec, [facility] [place] [address] [id number] [place] [address] November, [facility] [place] [address] [id number] [place] [address] November, [facility] [place] [address] [id number] [place] [address] November, [facility] [place] [address] [id number] [place] [address] November, [facility] [place] [address] [id number] [place] [address] November, Type 2 diabetes mellitus with hyperglycemia E11.65 ; prison current use of insulin Z79.4 ; Morbid obesity due to excess calories E66.01 ; Charcot foot due to diabetes mellitus E11.610 ; Neuropathy involving both lower extremities G57.93 ; BMI 50.0-59.9, adult Z68.43 ; Depression, unspecified depression type F32.9 and Scrotal swelling N50.89 [facility] [place] [address] [id number] [place] [address] November, [facility] [place] [address] [id number] [place] [address] Oct, Charcot foot due to diabetes mellitus E11.610 [facility] [place] [address] [id number] [place] [address] Sep, Type 2 diabetes mellitus with hyperglycemia E11.65 [facility] [place] [address] [id number] [place] [address] Sep, Charcot foot due to diabetes mellitus E11.610 [facility] [place] [address] [id number] [place] [address] Sep, [facility] [place] [address] [id number] [place] [address] Sep, [facility] [place] [address] [id number] [place] [address] Sep, Scrotal swelling N50.89 ; Fungal infection of the groin B35.6 and BMI 50.0- 59.9, adult Z68.43 [facility] [place] [address] [id number] [place] [address] Sep, Scrotal swelling N50.89 [facility] [place] [address] [id number] [place] [address] Sep, Scrotal swelling N50.89 [facility] [place] [address] [id number] [place] [address] Aug, Scrotal swelling N50.89 [facility] [place] [address] [id number] [place] [address] Aug, Charcot foot due to diabetes mellitus E11.610 [facility] [place] [address] [id number] [place] [address] 09 Feb, 2018 Type 2 diabetes mellitus with hyperglycemia E11.65 ; prison current use of insulin Z79.4 ; Morbid obesity due to excess calories E66.01 ; Charcot foot due to diabetes mellitus E11.610 ; Depression, unspecified depression type F32.9 and Essential hypertension I10 [facility] [address] [facility] [place] [id number] [place] [address] Aug, [facility] [place] [address] [id number] [place] [address] Aug, Scrotal swelling N50.89 and Depression, unspecified depression type F32.9 [place] [address] [facility] [id number], [place] [address] Jul, [facility] [address] [facility] [place] [id number], [place] [address] Jul, [address] [id number] [place] [address] Jul, [facility] [place] [address] [id number] [place] [address] Jul, Scrotal swelling N50.89 [facility] [place] [address] [id number] [place] [address] Jul, [facility] [place] [address] [id number] [place] [address] Jul, Scrotal swelling N50.89 [facility] [place] [address] [id number] [place] [address] Jul, Charcot foot due to diabetes mellitus E11.610 [facility] [place] [address] [id number] [place] [address] Jul, Depression, unspecified depression type F32.9 and BMI 50.0-59.9, adult Z68.[address] [facility] [place] [address] [id number] [place] [address] Jun, Depression, unspecified depression type F32.9 ; Charcot foot due to diabetes mellitus E11.610 and BMI 50.0-59.9, adult Z68.[address] [facility] [place] [address] [id number] [place] [address] Jun, 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 [place] [address] [id number] [place] [address] May, [facility] [place] [address] [id number] [place] [address] May, [facility] [place] [address] [id number] [place] [address] May, [facility] [place] [address] [id number] [place] [address] Apr, [address] [id number] [place] [address] Apr, [facility] [place] [address] [id number] [place] [address] Apr, [facility] [place] [address] [id number] [place] [address] Apr, Type 2 diabetes mellitus with hyperglycemia E11.65 and Depression, unspecified depression type F32.[address] [facility] [place] [address] [id number] [place] [address] 10 Apr, 2017 Encounter for immunization Z23 ; Type 2 diabetes mellitus with hyperglycemia E11.65 ; prison current use of insulin Z79.4 ; Charcot foot due to diabetes mellitus E11.610 and Essential hypertension I[address] [facility] [place] [address] [id number] [place] [address] Mar, Essential hypertension I10 ; Charcot foot due to diabetes mellitus E11.610 and Type 2 diabetes mellitus with hyperglycemia E11.65 [facility] [place] [address] [id number] [place] [address] Mar, [place] [address] [facility] [place] [id number] [place] [address] Feb, [facility] [place] [address] [id number] [place] [address] Feb, Type 2 diabetes mellitus with hyperglycemia E11.65 ; Essential hypertension I10 ; moth exterminator current use of insulin Z79.4 ; Morbid obesity due to excess calories E66.01 ; Charcot foot due to diabetes mellitus E11.610 and Depression, unspecified depression type F32.9 [facility] [place] [address] [id number] [place] [address] Jan, [facility] [place] [address] [id number] [place] [address] Jan, [facility] [place] [address] [id number] [place] [address] Jan, [place] [address] [facility] [place] [id number] [place] [address] Jan, [facility] [place] [address] [id number] [place] [address] Dec, Charcot foot due to diabetes mellitus E11.610 [facility] [place] [address] [id number] [place] [address] November, [facility] [place] [address] [id number] [place] [address] November, Type 2 diabetes mellitus with hyperglycemia E11.65 ; prison current use of insulin Z79.4 and Charcot foot due to diabetes mellitus E11.610 [facility] [place] [address] [id number] [place] [address] November, Bronchitis J40 [facility] [place] [address] [id number] [place] [address] Oct, Cellulitis of right lower extremity L03.115 and Charcot foot due to diabetes mellitus E11.610 [facility] [place] [address] [id number] [place] [address] Sep, [place] [address] [facility] [place] [id number] [place] [address] Sep, [facility] [place] [address] [id number] [place] [address] Sep, Bronchitis J[address] [facility] [address] [id number] [place] [address] 08 Sep, [address] [facility] [place] [address] [id number] [place] [address] Sep, Bronchitis J[address] [facility] [place] [address] [id number] [place] [address] Sep, Type 2 diabetes mellitus with hyperglycemia E11.65 [facility] [place] [address] [id number] [place] [address] Sep, [facility] [address] [facility] [place] [id number] [place] [address] Aug, [facility] [place] [address] [id number] [place] [address] Aug, Type 2 diabetes mellitus with hyperglycemia E11.65 ; Depression, unspecified depression type F32.9 ; Charcot foot due to diabetes mellitus E11.610 and Encounter for immunization Z23 [facility] [place] [address] [id number] [place] [address] Aug, [facility] [place] [address] [id number] [place] [address] Jul, Type 2 diabetes mellitus with hyperglycemia E11.65 ; moth exterminator current use of insulin Z79.4 ; Morbid obesity due to excess calories E66.01 and Charcot foot due to diabetes mellitus E11.610 [facility] [place] [address] [id number] [place] [address] Jun, Type 2 diabetes mellitus with hyperglycemia E11.65 ; moth exterminator current use of insulin Z79.4 ; Morbid obesity due to excess calories E66.01 ; Charcot foot due to diabetes mellitus E11.610 and Encounter for immunization Z23 [facility] [address] [facility] [place] [id number] [place] [address] Jun, [facility] [address] [place] [id number] [place] [address] Jun, [facility] [place] [address] [id number] [place] [address] Jun, Fever in other diseases R50.81 [facility] [place] [address] [id number] [place] [address] May, [facility] [place] [address] [id number] [place] [address] May, [facility] [place] [address] [id number] [place] [address] May, Type 2 diabetes mellitus with hyperglycemia E11.[address] [facility] [place] [address] [id number] [place] [address] May, Type 2 diabetes mellitus with hyperglycemia E11.65 ; moth exterminator current use of insulin Z79.4 ; [...]
--- OUTSIDE RECORDS SUMMARY | 2018-12-03 17:38 | XMS REPORT ---
Author Author CLAUDIA ARCHER [facility] Address [address] [place] [address] Care Team Providers Care Paper Novelty Maker Name Role Phone CLAUDIA ARCHER Unavailable PROBLEMS Type Condition ICD9-CM Code RZU60-BF Code Onset Dates Condition Status SNOMED Code Problem Charcot foot due to diabetes mellitus E11.610 Active 39526231 Problem Depression, unspecified depression type F32.9 Active 24593244 Problem Neuropathy involving both lower extremities G57.93 Active 762176048 Problem BMI 40.0-44.9, adult Z68.41 Active 346802864 Problem Type 2 diabetes mellitus with hyperglycemia E11.65 Active 15567008 Problem intermediate current use of insulin Z79.4 Active 030181697 Problem Essential hypertension I10 Active 67536221 Problem Morbid obesity due to excess calories E66.01 Active 897984386 ALLERGIES No Known Allergies ENCOUNTERS Encounter Location Date Diagnosis [facility] Electric[facility]RAW[facility] [address] [id number] [place] [address] Jun, [facility] [address] [id number] [place] [address] Jun, [facility] [address] [id number] [place] [address] Jun, Acute renal failure, unspecified acute renal failure type N17.9 and BMI 50.0- 59.9, adult Z68.43 [facility] ElectricAGRAWAL [address] [id number] [place] [address] May, [facility] [address] [facility] [id number] [place] [address] May, [facility] [place] [address] [id number] [place] [address] May, Cellulitis of right lower extremity L03.115 and BMI 50.0-59.9, adult Z68.43 [facility] [place] [address] [id number] [place] [address] Apr, [facility] [place] [address] [id number] [place] [address] Apr, Depression, unspecified depression type F32.9 ; BMI 50.0-59.9, adult Z68.43 and Encounter for immunization Z23 [facility] [place] [address] [id number] [place] [address] Apr, Charcot foot due to diabetes mellitus E11.610 [facility] [place] [address] [id number] [place] [address] Apr, Type 2 diabetes mellitus with hyperglycemia E11.65 [facility] [place] [address] [id number] [place] [address] Mar, [facility] [place] [address] [id number] [place] [address] Mar, Depression, unspecified depression type F32.9 ; Neuropathy involving both lower extremities G57.93 and Diarrhea, unspecified type R19.7 [facility] [place] [address] [id number] [place] [address] Mar, Charcot foot due to diabetes mellitus E11.610 [facility] [place] [address] [id number] [place] [address] 10 Mar, 2018 Type 2 diabetes mellitus with hyperglycemia E11.65 [facility] [place] [address] [id number] [place] [address] Feb, Type 2 diabetes mellitus with hyperglycemia E11.65 ; Charcot foot due to diabetes mellitus E11.610 and BMI 50.0-59.9, adult Z68.43 [facility] [place] [address] [id number] [place] [address] Feb, [facility] MELISSA [address] [id number] [place] [address] Feb, [facility] [place] [address] [id number] [place] [address] Jan, Depression, unspecified depression type F32.9 [facility] [place] [address] [id number] [place] [address] Jan, Charcot foot due to diabetes mellitus E11.610 [facility] [address] [facility] [id number] [place] [address] Dec, [facility] [place] [address] [id number] [place] [address] Dec, Charcot foot due to diabetes mellitus E11.610 [facility] [place] [address] [id number] [place] [address] Dec, Neuropathy involving both lower extremities G57.93 [facility] [place] [address] [id number] [place] [address] Dec, [facility] [place] [address] [id number] [place] [address] November, [facility] [place] [address] [id number] [place] [address] November, [facility] [place] [address] [id number] [place] [address] November, [facility] [place] [address] [id number] [place] [address] November, [facility] [place] [address] [id number] [place] [address] November, Type 2 diabetes mellitus with hyperglycemia E11.65 ; emt intermediate current use of insulin Z79.4 ; Morbid obesity due to excess calories E66.01 ; Charcot foot due to diabetes mellitus E11.610 ; Neuropathy involving both lower extremities G57.93 ; BMI 50.0-59.9, adult Z68.43 ; Depression, unspecified depression type F32.9 and Scrotal swelling N50.89 [facility] [place] [address] [id number] [place] [address] November, [facility] [place] [address] [id number] [place] [address] Oct, Charcot foot due to diabetes mellitus E11.610 [facility] [place] [address] [id number] [place] [address] Sep, Type 2 diabetes mellitus with hyperglycemia E11.65 [facility] [place] [address] [id number] [place] [address] Sep, Charcot foot due to diabetes mellitus E11.610 [facility] [place] [address] [id number] [place] [address] Sep, [facility] [place] [address] [id number] [place] [address] Sep, [facility] [place] [address] [id number] [place] [address] Sep, Scrotal swelling N50.89 ; Fungal infection of the groin B35.6 and BMI 50.0- 59.9, adult Z68.43 [facility] [place] [address] [id number] [place] [address] Sep, Scrotal swelling N50.89 [facility] [place] [address] [id number] [place] [address] Sep, Scrotal swelling N50.89 [facility] [place] [address] [id number] [place] [address] Aug, Scrotal swelling N50.89 [facility] [place] [address] [id number] [place] [address] Aug, Charcot foot due to diabetes mellitus E11.610 [facility] AGRAWAL [address] [id number] [place] [address] 09 Aug, 2017 Type 2 diabetes mellitus with hyperglycemia E11.65 ; intermediate current use of insulin Z79.4 ; Morbid obesity due to excess calories E66.01 ; Charcot foot due to diabetes mellitus E11.610 ; Depression, unspecified depression type F32.9 and Essential hypertension I10 [facility] [address] [facility] [id number] [place] [address] 07 Aug, 2017 [facility] [address] [id number] [place] [address] Aug, Scrotal swelling N50.89 and Depression, unspecified depression type F32.9 [facility] [address] [facility] [id number] [place] [address] Jul, [facility]ALSE[facility] [address] [facility] [id number] [place] [address] Jul, [facility]ITALVIN[facility] [address] [id number] [place] [id number] Jul, [facility] [place] [address] [id number] [place] [address] Jul, Scrotal swelling N50.89 [facility] [place] [address] [id number] [place] [address] Jul, [facility] [place] [address] [id number] [place] [address] Jul, Scrotal swelling N50.89 [facility] [place] [address] [id number] [place] [address] Jul, Charcot foot due to diabetes mellitus E11.610 [facility] [place] [address] [id number] [place] [address] Jul, Depression, unspecified depression type F32.9 and BMI 50.0-59.9, adult Z68.43 [facility]ALSE[facility] [place] [address] [id number] [place] [address] Jun, Depression, unspecified depression type F32.9 ; Charcot foot due to diabetes mellitus E11.610 and BMI 50.0-59.9, adult Z68.43 [facility]ITALEVRYTHNGLuz [place] [address] [id number] [place] [address] Jun, [facility]A [employer] [place] [address] [id number] [place] [address] 09 May, 2017 BMI 40.0-44.9, adult Z68.41 ; Type 2 diabetes mellitus with hyperglycemia E11.65 ; Essential hypertension I10 ; Depression, unspecified depression type F32.9 ; Charcot foot due to diabetes mellitus E11.610 and emt intermediate current use of insulin Z79.4 [facility] and [employer] [place] [address] [id number] [place] [address] May, [facility] [place] [address] [id number] [place] [address] May, [facility] [place] [address] [id number] [place] [address] May, [facility] [place] [address] [id number] [place] [address] Apr, [place] [address] [facility] [id number] [place] [address] Apr, [facility] [place] [address] [id number] [place] [address] Apr, [facility] [place] [address] [id number] [place] [address] Apr, Type 2 diabetes mellitus with hyperglycemia E11.65 and Depression, unspecified depression type F32.9 [facility] [place] [address] [id number] [place] [address] Apr, Encounter for immunization Z23 ; Type 2 diabetes mellitus with hyperglycemia E11.65 ; emt intermediate current use of insulin Z79.4 ; Charcot foot due to diabetes mellitus E11.610 and Essential hypertension I10 [facility] AG[place] [address] [id number] [place] [address] Mar, Essential hypertension I10 ; Charcot foot due to diabetes mellitus E11.610 and Type 2 diabetes mellitus with hyperglycemia E11.65 [facility] [place] [address] [id number] [place] [address] Mar, [place] [address] [facility] [id number] [place] [address] Feb, [facility] [place] [address] [id number] [place] [address] Feb, Type 2 diabetes mellitus with hyperglycemia E11.65 ; Essential hypertension I10 ; intermediate current use of insulin Z79.4 ; Morbid obesity due to excess calories E66.01 ; Charcot foot due to diabetes mellitus E11.610 and Depression, unspecified depression type F32.9 [facility] [place] [address] [id number] [place] [address] Jan, [facility] [place] [address] [id number] [place] [address] Jan, [facility] [place] [address] [id number] [place] [address] Jan, [facility] [address] [facility] [id number] [place] [address] Jan, [facility] [place] [address] [id number] [place] [address] Dec, Charcot foot due to diabetes mellitus E11.610 [facility] [place] [address] [id number] [place] [address] November, [facility] [place] [address] [id number] [place] [address] November, Type 2 diabetes mellitus with hyperglycemia E11.65 ; intermediate current use of insulin Z79.4 and Charcot foot due to diabetes mellitus E11.610 [facility] [place] [address] [id number] [place] [address] November, Bronchitis J40 [facility] [place] [address] [id number] [place] [address] Oct, Cellulitis of right lower extremity L03.115 and Charcot foot due to diabetes mellitus E11.610 [facility] [place] [address] [id number] [place] [address] Sep, [facility] [address] [facility] [id number] [place] [address] Sep, [facility] [place] [address] [id number] [place] [address] Sep, Bronchitis J40 [facility] G[facility]IA [facility] [id number] [place] [address] 08 Sep, 2016 [facility] [place] [address] [id number] [place] [address] Sep, Bronchitis J40 [facility] [place] [address] [id number] [place] [address] Sep, Type 2 diabetes mellitus with hyperglycemia E11.65 [facility] [place] [address] [id number] [place] [address] Sep, [place] [address] [id number] [address] Aug, [facility] [place] [address] [id number] [place] [address] Aug, Type 2 diabetes mellitus with hyperglycemia E11.65 ; Depression, unspecified depression type F32.9 ; Charcot foot due to diabetes mellitus E11.610 and Encounter for immunization Z23 [facility] [place] [address] [id number] [place] [address] Aug, [facility] [place] [address] [id number] [place] [address] Jul, Type 2 diabetes mellitus with hyperglycemia E11.65 ; intermediate current use of insulin Z79.4 ; Morbid obesity due to excess calories E66.01 and Charcot foot due to diabetes mellitus E11.610 [facility] [place] [address] [id number] [place] [address] Jun, Type 2 diabetes mellitus with hyperglycemia E11.65 ; intermediate current use of insulin Z79.4 ; Morbid obesity due to excess calories E66.01 ; Charcot foot due to diabetes mellitus E11.610 and Encounter for immunization Z23 [place] [address] [id number] [address] Jun, [place] [address] [id number], [place] [address] Jun, [facility] [place] [address] [id number] [place] [address] Jun, Fever in other diseases R50.81 [facility] [place] [address] [id number] [place] [address] May, [facility]ALT[facility]Funder [place] [address] [id number] [place] [address] 14 May, 2016 [facility] and [facility] [employer] [facility] [place] [address] [id number] [place] [address] May, Type 2 diabetes mellitus with hyperglycemia E11.65 [facility] [place] [address] [facility] [id number] [place] [address] 2016 Type 2 diabetes mellitus with hyperglycemia E11.65 ; intermediate current use of insulin Z79.4 ; Morbid obesity due to excess calories E66.01 ; Charcot foot due to diabetes mellitus E11.610 and Depression, unspecified depression type F32.9 IMMUNIZATIONS No Known Immunizations SOCIAL HISTORY Never Assessed REASON FOR VISIT Hospital f/u-Patient here for hospital f/u, states he is still feeling weak. Bell Clerk ck RN PLAN OF CARE Activity Details Follow Up 2 Weeks Reason:DM VITAL SIGNS Height 74 in 2018-06-13 Weight 398.3 lbs 2018-06-13 Temperature 97.9 degrees Fahrenheit 2018-06-13 Heart Rate 95 bpm 2018-06-13 Respiratory Rate 20 2018-06-13 BMI 51.13 kg/m2 2018-06-13 Blood pressure systolic 146 mmHg 2018-06-13 Blood pressure diastolic 72 mmHg 2018-06-13 MEDICATIONS Medication Instructions Dosage Frequency Start Date End Date Duration Status Glucocard Expression Test - TEST BLOOD SUGAR FOUR TIMES DAILY 25 Active NovoLog 100 UNIT/ML Subcutaneous 3 times a day 50 unit at meals 8h 90 days Active Pen Boutte 32G X 4 MM subcutaneously 3 times a day as directed 8h Sep, 90 days Active Percocet 10-325 MG Orally every 6 hrs 1 tablet as needed 6h May, 28 days Active Glucocard Expression Monitor w/Device as directed Mar, Active Wellbutrin XL 150 MG Orally Once a day 1 tablet in the morning 24h Mar, Active Lyrica 75 MG Orally Twice a day 1 capsule 12h Mar, 90 days Active Ibuprofen 200 MG Orally PRN 4 tab Active Amitriptyline HCl 25 MG Orally Once a day 1 tablet 24h 30 day(s) Active Norvasc 10 MG Orally Once a day 1 tablet 24h 30 day(s) Active RESULTS No Results PROCEDURES [...]
[2018-12-03] MEDS ORDERED: fentaNYL INJECTION 100 MCG/2 ML AMP IVP ONE (17:45)
--- OUTSIDE RECORDS SUMMARY | 2018-12-03 17:52 | XMS REPORT | Continuity of Care Document ---
Author Organization Unknown Address Unknown Allergies There is no data. Medications There is no data. Problems Date Dx Coded Attending Type Code Diagnosis Diagnosed By 08/04/2017 Rajinder Brown MD N49.2 Scrotal Abscess-Cellulitis Procedures There is no data. Results Test Result Range TSH - 08/18/17 08:52 TSH 3.82 mIU/L 0.40-4.50 CMP - 09/11/17 11:40 GLUCOSE 238 mg/dL 65-99 UREA NITROGEN (BUN) 32 mg/dL 7-25 CREATININE 1.28 mg/dL 0.70-1.33 eGFR NON-AFR. BAHRAINI 64 mL/min/1.73m2 > OR=60 eGFR 74 mL/min/1.73m2 [...] 18 U/L 10-35 ALT 21 U/L 9-46 CBC - 08/28/18 11:45 WHITE BLOOD CELL COUNT 8.8 Thousand/uL 3.8-10.8 RED BLOOD CELL COUNT 4.55 Million/uL 4.20-5.80 HEMOGLOBIN 12.9 g/dL 13.2-17.1 HEMATOCRIT 38.7 % 38.5-50.0 MCV 85.1 fL 80.0-100.0 MCH 28.4 pg 27.0-33.0 MCHC 33.3 g/dL 32.0-36.0 RDW 14.2 % 11.0-15.0 PLATELET COUNT 168 Thousand/uL 140-400 MPV 11.0 fL 7.5-12.5 ABSOLUTE NEUTROPHILS 5764 cells/uL 6549-5540 ABSOLUTE LYMPHOCYTES 1918 cells/uL 850-3900 ABSOLUTE MONOCYTES 757 cells/uL 200-950 ABSOLUTE EOSINOPHILS 308 cells/uL 15-500 ABSOLUTE BASOPHILS 53 cells/uL 0-200 NEUTROPHILS 65.5 % NRG LYMPHOCYTES 21.8 % NRG MONOCYTES 8.6 % NRG EOSINOPHILS 3.5 % NRG BASOPHILS 0.6 % NRG [facility] - 11/16/18 10:18 GLUCOSE 210 mg/dL 65-99 UREA NITROGEN (BUN) 17 mg/dL 7-25 CREATININE 1.06 mg/dL 0.70-1.33 eGFR NON-AFR. BAHRAINI 80 mL/min/1.73m2 > OR=60 eGFR 92 mL/min/1.73m2 > OR=60 BUN/CREATININE RATIO NOT APPLICABLE (calc) 6-22 SODIUM 138 mmol/L 135-146 POTASSIUM 4.2 mmol/L 3.5-5.3 CHLORIDE 99 mmol/L 98-110 CARBON DIOXIDE 30 mmol/L 20-32 CALCIUM 9.2 mg/dL 8.6-10.3 PROTEIN, TOTAL 7.8 g/dL 6.1-8.1 ALBUMIN 4.3 g/dL 3.6-5.1 GLOBULIN 3.5 g/dL (calc) 1.9-3.7 ALBUMIN/GLOBULIN RATIO 1.2 (calc) 1.0-2.5 BILIRUBIN, TOTAL 0.4 mg/dL 0.2-1.2 ALKALINE PHOSPHATASE 65 U/L 40-115 AST 20 U/L 10-35 ALT 19 U/L 9-46 [facility] - 11/29/18 11:39 GLUCOSE 226 mg/dL 65-99 UREA NITROGEN (BUN) 17 mg/dL 7-25 CREATININE 1.08 mg/dL 0.70-1.33 eGFR NON-AFR. BAHRAINI 78 mL/min/1.73m2 > OR=60 eGFR 90 mL/min/1.73m2 > OR=60 BUN/CREATININE RATIO NOT APPLICABLE (calc) 6-22 SODIUM 138 mmol/L 135-146 POTASSIUM 4.1 mmol/L 3.5-5.3 CHLORIDE 101 mmol/L 98-110 CARBON DIOXIDE 28 mmol/L 20-32 CALCIUM 9.1 mg/dL 8.6-10.3 PROTEIN, TOTAL 7.8 g/dL 6.1-8.1 ALBUMIN 4.3 g/dL 3.6-5.1 GLOBULIN 3.5 g/dL (calc) 1.9-3.7 ALBUMIN/GLOBULIN RATIO 1.2 (calc) 1.0-2.5 BILIRUBIN, TOTAL 0.5 mg/dL 0.2-1.2 ALKALINE PHOSPHATASE 67 U/L 40-115 AST 18 U/L 10-35 ALT 19 U/L 9-46 PDM - PAIN MGMT (PROFILE 3 WITH CONFIRMATION) - 11/29/18 11:39 Prescribed Drug 1 NRG Creatinine NRG pH NRG Oxidant NRG Amphetamines NRG medMATCH Amphetamines NRG Benzodiazepines NRG medMATCH Benzodiazepines NRG Marijuana Metabolite NRG medMATCH Marijuana Metab NRG Cocaine Metabolite NRG medMATCH Cocaine Metab NRG Opiates NRG medMATCH Opiates NRG Oxycodone NRG medMATCH Oxycodone NRG Amphetamine NRG medMATCH Amphetamine NRG Methamphetamine NRG medMATCH Methamphetamine NRG Alphahydroxyalprazolam NRG medMATCH aOH alprazolam NRG Alphahydroxymidazolam NRG medMATCH aOH midazolam NRG Alphahydroxytriazolam NRG medMATCH aOH triazolam NRG Aminoclonazepam NRG medMATCH Aminoclonazepam NRG Hydroxyethylflurazepam NRG medMATCH [place],Et flurazepam NRG Lorazepam NRG medMATCH Lorazepam NRG Nordiazepam NRG medMATCH Nordiazepam NRG Oxazepam NRG medMATCH Oxazepam NRG Temazepam NRG medMATCH Temazepam NRG Codeine NRG medMATCH Codeine NRG Hydrocodone NRG medMATCH Hydrocodone NRG Hydromorphone NRG medMATCH Hydromorphone NRG Morphine NRG medMATCH Morphine NRG Norhydrocodone NRG medMATCH Norhydrocodone NRG Prescribed Drug 2 NRG Prescribed Drug 3 NRG Prescribed Drug 4 NRG Prescribed Drug 5 NRG Specific [place] NRG Abnormal Specimen Validity Test: NRG Marijuana Metabolite NRG medMATCH Marijuana Metab NRG Benzoylecgonine NRG medMATCH Benzoylecgonine NRG Noroxycodone NRG medMATCH Noroxycodone NRG Oxycodone NRG medMATCH Oxycodone NRG Oxymorphone NRG medMATCH Oxymorphone NRG Confirmation Testing Performed at: NRG Encounters ACCT No. Visit Date/Time Discharge Status Pt. Type Provider Facility Loc./Unit Complaint [id number] 08/21/2018 12:42:17 08/21/2018 23:59:59 CLS Outpatient Victor Manuel Nelson [id number] 11/06/2016 14:33:00 11/06/2016 23:59:59 CLS Outpatient Flori George [id number] 05/18/2016 14:42:39 05/18/2016 23:59:59 CLS Outpatient Simon Wills [id number] 02/16/2016 14:00:01 02/16/2016 23:59:59 CLS Outpatient Todd Topete [id number] 08/17/2015 16:05:29 08/17/2015 23:59:59 CLS Outpatient Todd Topete [id number] 07/11/2015 16:49:54 07/11/2015 23:59:59 CLS Outpatient Adeel Terrazas [id number] 05/04/2015 16:07:48 05/04/2015 23:59:59 CLS Outpatient Todd Topete [id number] 04/20/2015 16:10:14 04/20/2015 23:59:59 CLS Outpatient Todd Topete [id number] 02/16/2015 22:35:02 02/16/2015 23:59:59 CLS Outpatient Robson Samuel [id number] 02/16/2015 21:30:13 02/16/2015 23:59:59 CLS Outpatient Robson Samuel [id number] 06/10/2014 09:49:09 06/10/2014 23:59:59 CLS Outpatient Liss Kirk [id number] 05/29/2014 21:21:23 05/29/2014 23:59:59 CLS Outpatient Simon Wills [id number] 05/29/2014 20:57:00 05/29/2014 23:59:59 CLS Outpatient Simon Wills [id number] 05/13/2014 14:30:02 05/13/2014 23:59:59 CLS Outpatient Hetlinger, Todd [id number] 04/24/2014 15:18:30 04/24/2014 23:59:59 CLS Outpatient Hetlinger, Todd [id number] 03/13/2014 11:21:44 03/13/2014 23:59:59 CLS Outpatient [place], Simon [id number] 03/12/2014 17:44:54 03/12/2014 23:59:59 CLS Outpatient [place], Simon [id number] 03/12/2014 17:28:27 03/12/2014 23:59:59 CLS Outpatient [place], Simon [id number] 03/12/2014 17:18:54 03/12/2014 23:59:59 CLS Outpatient [place], Simon [id number] 03/12/2014 17:14:49 03/12/2014 23:59:59 CLS Outpatient [place], Simon [id number] 03/12/2014 17:08:34 03/12/2014 23:59:59 CLS Outpatient [place], Simon [id number] 03/12/2014 17:05:30 03/12/2014 23:59:59 CLS Outpatient [place], Simon [id number] 03/12/2014 16:55:32 03/12/2014 23:59:59 CLS Outpatient [place], Simon [id number] 03/12/2014 16:49:46 03/12/2014 23:59:59 CLS Outpatient [place], Simon [id number] 03/12/2014 16:32:44 03/12/2014 23:59:59 CLS Outpatient [place], Simon [id number] 02/07/2014 11:30:19 02/07/2014 23:59:59 CLS Outpatient Hetlinger Todd [id number] 12/19/2013 12:21:12 12/19/2013 23:59:59 CLS Outpatient Adeel Terrazas [id number] 10/24/2013 15:43:00 10/24/2013 23:59:59 CLS Outpatient HetlingerTodd [id number] 10/23/2013 14:48:52 10/23/2013 23:59:59 CLS Outpatient Adeel Terrazas [id number] 10/11/2013 15:31:12 10/11/2013 23:59:59 CLS Outpatient Robson Samuel [id number] 08/28/2013 19:20:20 08/28/2013 23:59:59 CLS Outpatient SamuelRobson [id number] 07/17/2013 11:44:52 07/17/2013 23:59:59 CLS Outpatient MATEO, SHRUTI [id number] 05/18/2018 15:56:01 ACT Unknown Rajinder Brown MD [id number] 11/29/2018 10:40:00 11/29/2018 23:59:59 CLS Outpatient CLAUDIA ARCHER CHCVINCE AGRAWAL [id number] 11/29/2018 10:40:00 Document Registration [id number] 11/16/2018 09:00:00 Document Registration [id number] 08/28/2018 11:00:00 Document Registration [id number] 09/11/2017 11:40:00 Document Registration [id number] 08/18/2017 08:00:00 Document Registration
[2018-12-03 18:04] LABS: BASOPHILS % (AUTO) 0 % (0-10); EOSINOPHILS # (AUTO) 0.2 10^3/uL (0.0-0.3); EOSINOPHILS % (AUTO) 1 % (0-10); HEMATOCRIT 36 % (40-54); HEMOGLOBIN 12.3 G/DL (13.3-17.7); LYMPHOCYTES # (AUTO) 1.2 X 10^3 (1.0-4.0); LYMPHOCYTES % (AUTO) 6 % (12-44); MEAN CORPUSCULAR HEMOGLOBIN 28 PG (25-34); MEAN CORPUSCULAR HGB CONC 35 G/DL (32-36); MEAN CORPUSCULAR VOLUME 82 FL (80-99); MONOCYTES # (AUTO) 0.8 X 10^3 (0.0-1.0); MONOCYTES % (AUTO) 4 % (0-12); NEUTROPHILS # (AUTO) 17.7 X 10^3 (1.8-7.8); NEUTROPHILS % (AUTO) 89 % (42-75); PLATELET COUNT 132 10^3/uL (130-400); WHITE BLOOD COUNT 19.8 10^3/uL (4.3-11.0)
[2018-12-03 18:16] LABS: INR 1.1 (0.8-1.4); PROTHROMBIN TIME PATIENT 14.5 SEC (12.2-14.7)
[2018-12-03 18:23] LABS: ALANINE AMINOTRANSFERASE 20 U/L (0-55); ALBUMIN 3.9 GM/DL (3.2-4.5); ALKALINE PHOSPHATASE 63 U/L (40-136); BILIRUBIN,TOTAL 0.7 MG/DL (0.1-1.0); BUN/CREATININE RATIO 13; CALCIUM 9.2 MG/DL (8.5-10.1); CARBON DIOXIDE 21 MMOL/L (21-32); CHLORIDE 95 MMOL/L (98-107); CREATININE SERUM 1.06 MG/DL (0.60-1.30); GFR ESTIMATED > 60; GLUCOSE 175 MG/DL (70-105); POTASSIUM 4.4 MMOL/L (3.6-5.0); SODIUM 133 MMOL/L (135-145); TOTAL PROTEIN 7.7 GM/DL (6.4-8.2)
[2018-12-03] MEDS ORDERED: NS IV 1000 ML 1,000 ML IV STA (18:24)
[2018-12-03 18:35] LABS: BAND NEUTROPHILS 9 %; BASOPHILS % (MANUAL) 0 %; EOSINOPHILS % (MANUAL) 1 %; LYMPHOCYTES % (MANUAL) 7 %; MONOCYTES % (MANUAL) 5 %; NEUTROPHILS % (MANUAL) 77 %; REACTIVE LYMPHOCYTES 1 %
[2018-12-03 18:36] LABS: ANISOCYTOSIS SLIGHT
[2018-12-03] MEDS ORDERED: PIPERACILLIN/TAZOBACTAM (BULK) 4.5 GM in NS (IVPB) 100 ML IV ONE (18:45)
--- NOTE | 2018-12-03 18:46 | Diagnostic Imaging Report ---
INDICATION: Sepsis and cellulitis with fever. No prior examinations are available for comparison. FINDINGS: There is cardiomegaly. The mediastinum is unremarkable. The lungs clear. There is no pleural effusion or pneumothorax. IMPRESSION: No acute cardiopulmonary abnormality Mild cardiomegaly. Dictated by: Dictated on workstation # [id number]
--- NOTE | 2018-12-03 18:54 | ED Lower Extremity ---
General Chief Complaint: Lower Extremity Stated Complaint: CELLULITIS R LEG Nursing Triage Note: PT STATES RIGHT CELLULITUS ONSET TODAY. PT STATES HE HAS A HISTORY OF HTN AND DIABETES. WOUND ON RIGHT TOE THAT CAUSES CELLULITUS. PT STATES HE IS ON LASIX FOR SWELLING. PT STATES HISTORY OF ACUTE KIDNEY INJURY DUE TO SEPSIS FROM INITIAL CELLULITUS PREVIOUSLY. PT STATES FEVER. Nursing Sepsis Screen: Possible Sepsis Risk Source: patient Exam Limitations: no limitations History of Present Illness Date Seen by Provider: December 03, 2018 Time Seen by Provider: 17:32 Initial Comments 53-year-old male who presents to emergency room with complaints of cellulitis that started today to the right lower extremity. He has history of cellulitis to the right lower extremity and diabetic on his right great toe. He reports he has previously been on dialysis due to sepsis previous episode of cellulitis. Onset: just prior to arrival Pain/Injury Location: right leg Method of Injury: unknown Modifying Factors: Worse With Movement Allergies and Home Medications Allergies Coded Allergies: No Known Drug Allergies (Unverified , 06/05/18) Home Medications Amitriptyline HCl 25 Mg Tablet, 25 MG PO HS Prescribed by: JUSTUS ODONNELL on 06/08/18831 Amlodipine Besylate 10 Mg Tablet, 10 MG PO DAILY Prescribed by: JUSTUS ODONNELL on 06/08/18831 Bupropion HCl 150 Mg Tab.er.24h, 150 MG PO DAILY, (Reported) Exenatide Microspheres 2 Mg Vial, 2 MG SQ Fr, (Reported) Insulin Aspart 100 Unit/1 Ml Susp, 12 UNIT SC WM Prescribed by: JUSTUS ODONNELL on 06/08/18831 Oxycodone HCl/Acetaminophen 1 Each Tablet, 1 TAB PO Q6H PRN for PAIN-MODERATE Prescribed by: JUSTUS ODONNELL on 06/08/18831 Pregabalin 75 Mg Capsule, 75 MG PO BID Prescribed by: JUSTUS ODONNELL on 06/08/18831 Patient Home Medication List Home Medication List Reviewed: Yes Review of Systems Constitutional: see HPI, chills, fever Skin: see HPI, other (ulcer to the great toe. Cellulitis to the right lower extremity.) All Other Systems Reviewed Negative Unless Noted: Yes Past Lmkmphl-Awmpbi-Uhxnhq Hx Past Med/Social Hx: Reviewed Nursing Past Med/Soc Hx Patient Social History Alcohol Use: Denies Use Recreational Drug Use: No Smoking Status: Never a Smoker Recent Foreign Travel: No Contact w/Someone Who Travel: No Recent Infectious Disease Expo: Yes Recent Hopitalizations: No Immunizations Up To Date Tetanus Booster (TDap): Unknown PED Vaccines UTD: No Date of Pneumonia Vaccine: Apr 25, 2017 Date of Influenza Vaccine: Apr 09, 2018 Seasonal Allergies Seasonal Allergies: Yes Past Medical History Surgeries: Yes Gallbladder, Orthopedic Respiratory: Yes Sleep Apnea Currently Using CPAP: No (ALTHOUGH IT IS ORDERED) Currently Using BIPAP: No Cardiac: Yes Neurological: No Sexually Transmitted Disease: No HIV/AIDS: No Genitourinary: Yes Bladder Infection, Dialysis Gastrointestinal: Yes Gastroesophageal Reflux, Gall Bladder Disease Musculoskeletal: No Endocrine: Yes HEENT: No Loss of Vision: Denies Hearing Impairment: Denies Cancer: No Psychosocial: Yes Anxiety, Depression Integumentary: Yes Blood Disorders: No Adverse Reaction/Blood Tranf: No Family Medical History Reviewed Nursing Family Hx Diabetes mellitus 19 MOTHER G8 SISTER G8 SISTER G8 SISTER Physical Exam Vital Signs Vital Signs - First Documented 12/03/18 17:27 Temp 98.3 Pulse 103 Resp 18 B/P (MAP) 196/79 (118) Pulse Ox 97 O2 Delivery Room Air Capillary Refill : Less Than 3 Seconds Height, Weight, BMI Height: 6'4.00" Weight: 437lbs. 7.0oz. 198.555558jj; 49.6 BMI Method:Stated General Appearance: WD/WN, no apparent distress Cardiovascular: normal peripheral pulses, regular rate, rhythm, no edema, no gallop, no JVD, no murmur Respiratory: chest non-tender, lungs clear, normal breath sounds, no respiratory distress, no accessory muscle use Neurologic/Tendon: normal sensation, normal motor functions, normal tendon functions, responds to pain, no evidence tendon injury Neurologic/Psychiatric: alert, normal mood/affect, oriented x 3 Skin: normal color, warm/dry (cellulitis to right lower extremity. Diabetic ulcers to the right great toe in between the second and third toe.), other Progress/Results/Core Measures Results/Orders Lab Results Laboratory Tests Test 12/03/18 17:50 Range/Units White Blood Count 19.8 H 4.3-11.0 10^3/uL Red Blood Count 4.34 L 4.35-5.85 10^6/uL Hemoglobin 12.3 L 13.3-17.7 G/DL Hematocrit 36 L 40-54 % Mean Corpuscular Volume 82 80-99 FL Mean Corpuscular Hemoglobin 28 25-34 PG Mean Corpuscular Hemoglobin Concent 35 32-36 G/DL Red Cell Distribution Width 14.0 10.0-14.5 % Platelet Count 132 130-400 10^3/uL Mean Platelet Volume 11.0 H 7.4-10.4 FL Neutrophils (%) (Auto) 89 H 42-75 % Lymphocytes (%) (Auto) 6 L 12-44 % Monocytes (%) (Auto) 4 0-12 % Eosinophils (%) (Auto) 1 0-10 % Basophils (%) (Auto) 0 0-10 % Neutrophils # (Auto) 17.7 H 1.8-7.8 X 10^3 Lymphocytes # (Auto) 1.2 1.0-4.0 X 10^3 Monocytes # (Auto) 0.8 0.0-1.0 X 10^3 Eosinophils # (Auto) 0.2 0.0-0.3 10^3/uL Basophils # (Auto) 0.0 0.0-0.1 10^3/uL Neutrophils % (Manual) 77 % Lymphocytes % (Manual) 7 % Monocytes % (Manual) 5 % Eosinophils % (Manual) 1 % Basophils % (Manual) 0 % Band Neutrophils 9 % Reactive Lymphocytes 1 % Anisocytosis SLIGHT Prothrombin Time 14.5 12.2-14.7 SEC INR Comment 1.1 0.8-1.4 Activated Partial Thromboplast Time 38 H 24-35 SEC Sodium Level 133 L 135-145 MMOL/L Potassium Level 4.4 3.6-5.0 MMOL/L Chloride Level 95 L 98-107 MMOL/L Carbon Dioxide Level 21 21-32 MMOL/L Anion Gap 17 H 5-14 MMOL/L Blood Urea Nitrogen 14 7-18 MG/DL Creatinine 1.06 0.60-1.30 MG/DL Estimat Glomerular Filtration Rate > 60 BUN/Creatinine Ratio 13 Glucose Level 175 H 70-105 MG/DL Lactic Acid Level 2.67 *H 0.50-2.00 MMOL/L Calcium Level 9.2 8.5-10.1 MG/DL Corrected Calcium 9.3 8.5-10.1 MG/DL Total Bilirubin 0.7 0.1-1.0 MG/DL Aspartate Amino Transf (AST/SGOT) 22 5-34 U/L Alanine Aminotransferase (ALT/SGPT) 20 0-55 U/L Alkaline Phosphatase 63 40-136 U/L C-Reactive Protein High Sensitivity 5.80 H 0.00-0.50 MG/DL Total Protein 7.7 6.4-8.2 GM/DL Albumin 3.9 3.2-4.5 GM/DL My Orders Orders - ABIDA BELL Cbc With Automated Diff (12/03/18 17:32) Comprehensive Metabolic Panel (12/03/18 17:32) Blood Culture (12/03/18 17:32) Protime With Inr (12/03/18 17:32) Partial Thromboplastin Time (12/03/18 17:32) Ed Iv/Invasive Line Start (12/03/18 17:32) Lactic Acid Analyzer (12/03/18 17:32) Fentanyl Injection (Sublimaze Injection (12/03/18 17:45) Hs C Reactive Protein (12/03/18 17:32) Manual Differential (12/03/18 17:50) Chest 1 View, Ap/Pa Only (12/03/18 18:17) Ns Iv 1000 Ml (Sodium Chloride 0.9%) (12/03/18 18:24) Medications Given in ED Current Medications Medications Dose Ordered Sig/Jaswinder Route Start Time Stop Time Status Last Admin Dose Admin Fentanyl Citrate 50 mcg ONCE ONCE IVP 12/03/18 17:45 12/03/18 17:46 DC 12/03/18 18:05 50 MCG Piperacillin Sod/ Tazobactam Sod 4.5 gm/Sodium Chloride 120 ml @ 240 mls/hr ONCE ONCE IV 12/03/18 18:45 12/03/18 19:14 DC 12/03/18 19:23 240 MLS/HR Vital Signs/I&O 12/03/18 17:27 Temp 98.3 Pulse 103 Resp 18 B/P (MAP) 196/79 (118) Pulse Ox 97 O2 Delivery Room Air Blood Pressure Mean: 118 Progress Progress Note : Time: 18:45 Progress Note I have seen and evaluated the patient. I've discussed the case with Dr. chacon she agrees to accept the patient to her services. He'll be placed on Zosyn and vancomycin. He agrees with plans for admission. Departure Communication (Admissions) Time/Spoke to Admitting Phy: 18:45 Dr. Lord Impression Primary Impression: Cellulitis of right lower extremity Additional Impression: Diabetic ulcer of right great toe Disposition: 09 ADMITTED INPATIENT Condition: Stable/Unchanged Admissions Decision to Admit Reason: Admit from ER (General) Decision to Admit/Date: December 03, 2018 Time/Decision to Admit Time: 18:50 Departure-Patient Inst. Referrals: [facility] (PCP) Primary Care Physician CLAUDIA ARCHER APRN (Family) Primary Care Physician ABIDA BELL December 03, 2018 18:54
[2018-12-03] MEDS ORDERED: NS (IVPB) 100 ML ONE ×2 (19:07→22:37)
[2018-12-03] MEDS ORDERED: PIPERACILLIN/TAZO 4.5 GM VIAL (ZOSYN) IV ONE ×2 (19:07→22:36)
--- OUTSIDE RECORDS SUMMARY | 2018-12-03 19:36 | XMS REPORT | Continuity of Care Document ---
[...] 7-25 CREATININE 1.28 mg/dL 0.70-1.33 eGFR NON-AFR. AZERBAIJANI 64 mL/min/1.73m2 > OR=60 eGFR 74 mL/min/1.73m2 [...] 11.0 fL 7.5-12.5 ABSOLUTE NEUTROPHILS 5764 cells/uL 6368-8390 ABSOLUTE LYMPHOCYTES 1918 cells/uL 850-3900 ABSOLUTE MONOCYTES 757 cells/uL 200-950 ABSOLUTE EOSINOPHILS 308 cells/uL 15-500 ABSOLUTE BASOPHILS 53 cells/uL 0-200 NEUTROPHILS 65.5 % NRG LYMPHOCYTES 21.8 % NRG MONOCYTES 8.6 % NRG EOSINOPHILS 3.5 % NRG BASOPHILS 0.6 % NRG [facility] - 11/16/18 10:18 GLUCOSE 210 mg/dL 65-99 UREA NITROGEN (BUN) 17 mg/dL 7-25 CREATININE 1.06 mg/dL 0.70-1.33 eGFR NON-AFR. AZERBAIJANI 80 mL/min/1.73m2 > OR=60 eGFR 92 mL/min/1.73m2 [...] 20 U/L 10-35 ALT 19 U/L 9-46 [facility] - 11/29/18 11:39 GLUCOSE 226 mg/dL 65-99 UREA NITROGEN (BUN) 17 mg/dL 7-25 CREATININE 1.08 mg/dL 0.70-1.33 eGFR NON-AFR. AZERBAIJANI 78 mL/min/1.73m2 > OR=60 eGFR 90 mL/min/1.73m2 [...] 4 NRG Prescribed Drug 5 NRG Specific [place] NRG Abnormal Specimen Validity Test: NRG Marijuana Metabolite NRG medMATCH Marijuana Metab NRG Benzoylecgonine NRG medMATCH Benzoylecgonine NRG Noroxycodone NRG medMATCH Noroxycodone NRG Oxycodone NRG medMATCH Oxycodone NRG Oxymorphone NRG medMATCH Oxymorphone NRG Confirmation Testing Performed at: NRG Encounters ACCT No. Visit Date/Time Discharge Status Pt. Type Provider Facility Loc./Unit Complaint [id number] 08/21/2018 12:42:17 08/21/2018 23:59:59 CLS Outpatient Victor Manuel Nelson [id number] 11/06/2016 14:33:00 11/06/2016 23:59:59 CLS Outpatient Flori George [id number] 05/18/2016 14:42:39 05/18/2016 23:59:59 CLS Outpatient Simon Wills [id number] 02/16/2016 14:00:01 02/16/2016 23:59:59 CLS Outpatient Todd Topete [id number] 08/17/2015 16:05:29 08/17/2015 23:59:59 CLS Outpatient Todd Topete [id number] 07/11/2015 16:49:54 07/11/2015 23:59:59 CLS Outpatient Adeel Terrazas [id number] 05/04/2015 16:07:48 05/04/2015 23:59:59 CLS Outpatient Todd Topete [id number] 04/20/2015 16:10:14 04/20/2015 23:59:59 CLS Outpatient Todd Topete [id number] 02/16/2015 22:35:02 02/16/2015 23:59:59 CLS Outpatient Robson Samuel [id number] 02/16/2015 21:30:13 02/16/2015 23:59:59 CLS Outpatient Robson Samuel [id number] 06/10/2014 09:49:09 06/10/2014 23:59:59 CLS Outpatient Liss Kirk [id number] 05/29/2014 21:21:23 05/29/2014 23:59:59 CLS Outpatient Simon Wills [id number] 05/29/2014 20:57:00 05/29/2014 23:59:59 CLS Outpatient Simon Wills [id number] 05/13/2014 14:30:02 05/13/2014 23:59:59 CLS Outpatient Hetlinger, Todd [id number] 04/24/2014 15:18:30 04/24/2014 23:59:59 CLS Outpatient Hetlinger, Todd [id number] 03/13/2014 11:21:44 03/13/2014 23:59:59 CLS Outpatient Bourg, Simon [id number] 03/12/2014 17:44:54 03/12/2014 23:59:59 CLS Outpatient Bourg, Simon [id number] 03/12/2014 17:28:27 03/12/2014 23:59:59 CLS Outpatient Bourg, Simon [id number] 03/12/2014 17:18:54 03/12/2014 23:59:59 CLS Outpatient Bourg, Simon [id number] 03/12/2014 17:14:49 03/12/2014 23:59:59 CLS Outpatient Bourg, Simon [id number] 03/12/2014 17:08:34 03/12/2014 23:59:59 CLS Outpatient Bourg, Simon [id number] 03/12/2014 17:05:30 03/12/2014 23:59:59 CLS Outpatient Bourg, Simon [id number] 03/12/2014 16:55:32 03/12/2014 23:59:59 CLS Outpatient Bourg, Simon [id number] 03/12/2014 16:49:46 03/12/2014 23:59:59 CLS Outpatient Bourg, Simon [id number] 03/12/2014 16:32:44 03/12/2014 23:59:59 CLS Outpatient Bourg, Simon [id number] 02/07/2014 11:30:19 02/07/2014 23:59:59 CLS Outpatient Hetlinger Todd [id number] 12/19/2013 12:21:12 12/19/2013 23:59:59 CLS Outpatient Adeel Terrazas [id number] 10/24/2013 15:43:00 10/24/2013 23:59:59 CLS Outpatient HetlingerTodd [id number] 10/23/2013 14:48:52 10/23/2013 23:59:59 CLS Outpatient Adeel Terrazas [id number] 10/11/2013 15:31:12 10/11/2013 23:59:59 CLS Outpatient Robson Samuel [id number] 08/28/2013 19:20:20 08/28/2013 23:59:59 CLS Outpatient SamuelRobson [id number] 07/17/2013 11:44:52 07/17/2013 23:59:59 CLS Outpatient MATEO, SHRUTI [id number] 05/18/2018 15:56:01 ACT Unknown Rajinder Brown MD [id number] 11/29/2018 10:40:00 11/29/2018 23:59:59 CLS Outpatient CLAUDIA ARCHER CHCVINCE AGRAWAL [id number] 11/29/2018 10:40:00 Document Registration [id number] 11/16/2018 09:00:00 Document Registration [id number] 08/28/2018 11:00:00 Document Registration [id number] 09/11/2017 11:40:00 Document Registration [id number] 08/18/2017 08:00:00 Document Registration
[2018-12-03 19:50] VITALS: BP 131/66
--- NOTE | 2018-12-03 19:50 | NUR ---
JACKIE CRUZ admitted to room 411-1, with an admitting diagnosis of SEPSIS, R LEG CELLULITIS, DIABETIC ULCERS, on 12/03/18 from ED via WC, accompanied by STAFF AND FRIEND.JACKIE CRUZ introduced to surroundings, call light, bed controls, phone, TV, temperature control, lights, meal times, smoking policy, visitor policy, side rail policy, bathrooms and showers. Patient Rights given to patient in the handbook. JACKIE CRUZ verbalizes understanding that [facility] is not responsible for the loss or damage to any personal effects or valuables that are kept in the patients possession during their hospitalization. PLANS OF CARE DISCUSSED WITH PT AND VERBALIZES UNDERSTANDING. JACKIE CRUZ verbalizes understanding of Interdisciplinary Patient Education. Patient and/or family were informed about the Rapid Response Team and its purpose.
[2018-12-03 20:04] VITALS: BP 131/66
[2018-12-03] MEDS ORDERED: fentaNYL INJECTION 100 MCG/2 ML AMP ONE (21:04)
[2018-12-03] MEDS ORDERED: ACETAMINOPHEN 325 MG TABLET PO PRN (21:30)
[2018-12-03] MEDS ORDERED: CATHETER FLUSH 10 ML SYR IV PRN (21:30)
[2018-12-03] MEDS ORDERED: fentaNYL INJECTION 100 MCG/2 ML AMP IV PRN (21:30)
[2018-12-03] MEDS: NS IV 1000 ML 1,000 ML IV SCH (22:03)
[2018-12-03] MEDS ORDERED: VANCOMYCIN INJECTION 1GM (OMNI 250 ML IV ONE (22:14)
[2018-12-03] MEDS: VANCOMYCIN 1 GM/NS 250 ML IVPB IV SCH ×4 (22:25→23:41)
[2018-12-03] MEDS: CATHETER FLUSH 10 ML SYR IV SCH (22:27)
[2018-12-03] MEDS ORDERED: NS (IVPB) 250 ML ONE (22:28)
[2018-12-03] MEDS ORDERED: VANCOMYCIN 500 MG/VIAL IV ONE (22:28)
[2018-12-04] VITALS (7 sets, daily range): BP systolic 113–164; BP diastolic 54–79
[2018-12-04] MEDS ORDERED: NS (IVPB) 250 ML ONE (00:43)
[2018-12-04] MEDS ORDERED: VANCOMYCIN 500 MG/VIAL IV ONE (00:43)
[2018-12-04] MEDS ORDERED: ONDANSETRON 4 MG/2 ML (SDV) Z0FRAN ONE (00:56)
--- NOTE | 2018-12-04 00:58 | NUR ---
PT REPORTED NAUSEA. CALLED DR ZAPATA AND RECEIVED ORDER FOR ZOFRAN 4MG IV Q4H PRN.
[2018-12-04] MEDS: ONDANSETRON 4 MG/2 ML (SDV) Z0FRAN IVP PRN ×3 (01:06→11:30)
[2018-12-04] MEDS: VANCOMYCIN 1 GM/NS 250 ML IVPB IV SCH ×2 (01:06)
[2018-12-04] MEDS: PIPERACILLIN/TAZO 4.5 GM/NS 100 ML IV SCH ×6 (02:25→17:44)
[2018-12-04] MEDS: inSUlin ASPART (NovoLOG) 1 UNIT/0.01 ML (CHARGE PER UNIT) SC SCH ×5 (05:29→21:42)
[2018-12-04 05:38] LABS: BASOPHILS % (AUTO) 0 % (0-10); EOSINOPHILS # (AUTO) 0.2 10^3/uL (0.0-0.3); EOSINOPHILS % (AUTO) 2 % (0-10); HEMATOCRIT 38 % (40-54); HEMOGLOBIN 12.3 G/DL (13.3-17.7); LYMPHOCYTES # (AUTO) 0.6 X 10^3 (1.0-4.0); LYMPHOCYTES % (AUTO) 5 % (12-44); MEAN CORPUSCULAR HEMOGLOBIN 27 PG (25-34); MEAN CORPUSCULAR HGB CONC 33 G/DL (32-36); MEAN CORPUSCULAR VOLUME 84 FL (80-99); MEAN PLATELET VOLUME 11.1 FL (7.4-10.4); MONOCYTES # (AUTO) 0.7 X 10^3 (0.0-1.0); MONOCYTES % (AUTO) 6 % (0-12); NEUTROPHILS # (AUTO) 10.4 X 10^3 (1.8-7.8); NEUTROPHILS % (AUTO) 87 % (42-75); PLATELET COUNT 134 10^3/uL (130-400); RED CELL DISTRIBUTION WIDTH 14.2 % (10.0-14.5)
[2018-12-04 06:05] LABS: ALBUMIN 3.7 GM/DL (3.2-4.5); BILIRUBIN,TOTAL 0.9 MG/DL (0.1-1.0); CALCIUM 8.8 MG/DL (8.5-10.1); CREATININE SERUM 1.28 MG/DL (0.60-1.30); POTASSIUM 3.8 MMOL/L (3.6-5.0); TOTAL PROTEIN 7.3 GM/DL (6.4-8.2)
[2018-12-04] MEDS: CATHETER FLUSH 10 ML SYR IV SCH ×3 (06:12→22:25)
[2018-12-04] MEDS: NS IV 1000 ML 1,000 ML IV SCH ×2 (08:01→16:23)
[2018-12-04] MEDS: VANCOMYCIN 2000 MG/NS 500 ML IVPB IV SCH ×4 (08:01→21:04)
--- NOTE | 2018-12-04 09:19 | History & Physicial (CHS) ---
HPI History of Present Illness: 53 yo male came to ER yesterday after having pain and bright redness in leg starting yesterday, had swelling a few days prior. Febrile yesterday at home up to 102. Today he states he feels a little nauseous, pain in leg is a little bit better. He had cellulitis with severe sepsis in the same leg not long ago and had to go to [place] due to renal failure and needing dialysis. He notes pain in back of upper leg which is not even red. Date seen by provider: December 04, 2018 Time Seen by Provider: 09:18 Attending Physician Yuval Lord MD PCP Center/[facility],Pending Sale To [facility] Consult Date of Admission December 03, 2018 at 18:45 Home Medications Home Medications Reviewed patient Home Medication Reconciliation performed by pharmacy medication reconciliations guitar technician and/or nursing. Patients Allergies have been reviewed. Allergies Coded Allergies: No Known Drug Allergies (Unverified , 06/05/18) [id number] Hx Patient Social History Alcohol Use: Denies Use Recreational Drug Use: No Smoking Status: Never a Smoker Recent Foreign Travel: No Contact w/other who traveled: No Recent Hopitalizations: No Recent Infectious Disease Expo: No Immunizations Up To Date Tetanus Booster (TDap): Unknown Date of Pneumonia Vaccine: Apr 25, 2017 Date of Influenza Vaccine: Apr 09, 2018 Past Medical History PMHx: DMII HTN Depression Anxiety Sleep apnea on bipap Fluid retention Surghx: Cholecystectomy L knee scope Right second toe amputation Circumcision revision Family Medical History Family History: Diabetes mellitus 19 MOTHER G8 SISTER G8 SISTER G8 SISTER Review of Systems (CHC) Constitutional: fever EENTM: nose congestion, other (headache) Respiratory: No cough; dyspnea on exertion (worse than baseline) Cardiovascular: No chest pain Gastrointestinal: No abdominal pain, No constipation, No diarrhea Genitourinary: No dysuria Musculoskeletal: see HPI Skin: see HPI Psychiatric/Neurological: Denies Anxiety, Denies Depressed Reviewed Test Results Reviewed Test Results Lab Laboratory Tests Test 12/03/18 17:50 12/03/18 20:58 12/03/18 22:20 12/04/18 05:15 Range/Units White Blood Count 19.8 H 12.0 H 4.3-11.0 10^3/uL Red Blood Count 4.34 L 4.50 4.35-5.85 10^6/uL Hemoglobin 12.3 L 12.3 L 13.3-17.7 G/DL Hematocrit 36 L 38 L 40-54 % Mean Corpuscular Volume 82 84 80-99 FL Mean Corpuscular Hemoglobin 28 27 25-34 PG Mean Corpuscular Hemoglobin Concent 35 33 32-36 G/DL Red Cell Distribution Width 14.0 14.2 10.0-14.5 % Platelet Count 132 134 130-400 10^3/uL Mean Platelet Volume 11.0 H 11.1 H 7.4-10.4 FL Neutrophils (%) (Auto) 89 H 87 H 42-75 % Lymphocytes (%) (Auto) 6 L 5 L 12-44 % Monocytes (%) (Auto) 4 6 0-12 % Eosinophils (%) (Auto) 1 2 0-10 % Basophils (%) (Auto) 0 0 0-10 % Neutrophils # (Auto) 17.7 H 10.4 H 1.8-7.8 X 10^3 Lymphocytes # (Auto) 1.2 0.6 L 1.0-4.0 X 10^3 Monocytes # (Auto) 0.8 0.7 0.0-1.0 X 10^3 Eosinophils # (Auto) 0.2 0.2 0.0-0.3 10^3/uL Basophils # (Auto) 0.0 0.0 0.0-0.1 10^3/uL Neutrophils % (Manual) 77 % Lymphocytes % (Manual) 7 % Monocytes % (Manual) 5 % Eosinophils % (Manual) 1 % Basophils % (Manual) 0 % Band Neutrophils 9 % Reactive Lymphocytes 1 % Anisocytosis SLIGHT Prothrombin Time 14.5 12.2-14.7 SEC INR Comment 1.1 0.8-1.4 Activated Partial Thromboplast Time 38 H 24-35 SEC Sodium Level 133 L 132 L 135-145 MMOL/L Potassium Level 4.4 3.8 3.6-5.0 MMOL/L Chloride Level 95 L 98 98-107 MMOL/L Carbon Dioxide Level 21 24 21-32 MMOL/L Anion Gap 17 H 10 5-14 MMOL/L Blood Urea Nitrogen 14 15 7-18 MG/DL Creatinine 1.06 1.28 0.60-1.30 MG/DL Estimat Glomerular Filtration Rate > 60 59 BUN/Creatinine Ratio 13 12 Glucose Level 175 H 246 H 70-105 MG/DL Lactic Acid Level 2.67 *H 1.74 0.50-2.00 MMOL/L Calcium Level 9.2 8.8 8.5-10.1 MG/DL Corrected Calcium 9.3 9.0 8.5-10.1 MG/DL Total Bilirubin 0.7 0.9 0.1-1.0 MG/DL Aspartate Amino Transf (AST/SGOT) 22 16 5-34 U/L Alanine Aminotransferase (ALT/SGPT) 20 18 0-55 U/L Alkaline Phosphatase 63 58 40-136 U/L C-Reactive Protein High Sensitivity 5.80 H 0.00-0.50 MG/DL Total Protein 7.7 7.3 6.4-8.2 GM/DL Albumin 3.9 3.7 3.2-4.5 GM/DL Glucometer 183 H 70-110 MG/DL Test 12/04/18 05:17 Range/Units Glucometer 248 H 70-110 MG/DL Radiology CXR 12/03 no acute abnormality Physical Exam-(CHC) Physical Exam Vital Signs VS - Last 72 Hours, by Label 12/03/18 12/03/18 12/03/18 12/03/18 17:27 19:32 19:50 19:50 Temp 98.3 100.2 Pulse 103 91 89 Resp 18 18 20 B/P (MAP) 196/79 (118) 162/77 (105) 131/66 Pulse Ox 97 97 98 O2 Delivery Room Air Room Air Nasal Cannula Room Air O2 Flow Rate 2.00 12/03/18 12/03/18 12/03/18 12/03/18 20:00 20:04 20:17 22:56 Temp 100.2 Pulse 89 91 Resp 20 B/P (MAP) 131/66 (87) Pulse Ox 96 98 89 O2 Delivery Nasal Cannula Room Air Room Air O2 Flow Rate 2.00 12/04/18 12/04/18 12/04/18 12/04/18 00:05 01:00 04:03 04:29 Temp 100.3 99.0 Pulse 94 91 92 Resp 18 18 B/P (MAP) 147/70 (95) 164/79 (107) Pulse Ox 96 93 96 O2 Delivery Room Air Nasal Cannula Room Air O2 Flow Rate 3.00 12/04/18 12/04/18 12/04/18 07:00 08:00 08:00 Temp 99.2 Pulse 89 89 Resp 18 B/P (MAP) 146/71 (96) Pulse Ox 96 O2 Delivery Room Air Room Air Capillary Refill : Less Than 3 SecondsLess Than 3 Seconds General Appearance: mild distress, obese Respiratory: lungs clear Cardiovascular: regular rate, rhythm, no murmur Gastrointestinal: normal bowel sounds, non tender, soft Extremities: pedal edema Neurologic/Psychiatric: alert, normal mood/affect Skin: other (right lower leg with circumferential redness with some ulcerated/scabbed areas from ankle to about 8 cm below knee. Right great toe with wound about 3-5 cm in diameter with red granulated base, second toe with distal tip previously amputated) Assessment/Plan Assessment/Plan Admission Status: Inpatient Order (span 2 midnights) Reason for Inpatient Admission: Sepsis with cellulitis with underlying diabetes, high risk for decompensation (1) Sepsis Status: Acute Assessment & Plan: Secondary to cellulitis, elevated WBC and fever. LA above 2, but not 4. Resolved this am and leukocytosis improved. Continue vancomycin and zosyn, blood cx pending. Qualifiers: Qualified Codes: A41.9 - Sepsis, unspecified organism (2) Cellulitis of right lower extremity Status: Acute Assessment & Plan: On vancoymycin and zosyn, receded slightly from lines drawn in ER. Will check ultrasound for DVT given pain in posterior thigh above level of cellulitis. (3) Hyponatremia Status: Acute Assessment & Plan: Suspect hypervolemic hyponatremia. Resume home lasix, monitor. Will review clinic records to see if he has had an echo/BNP done in past. (4) Diabetic ulcer of right great toe Status: Acute Assessment & Plan: Per pt report is healing, seeing wound care in [place]. Is not contiguous with cellulitis on leg- foot has no erythema. (5) Diabetes mellitus, type 2 Status: Chronic Assessment & Plan: Diabetic diet, resume home insulin. Qualifiers: (6) Hypertension Status: Chronic Assessment & Plan: Resume home medications. Qualifiers: Qualified Codes: I10 - Essential (primary) hypertension (7) DVT prophylaxis Status: Acute Assessment & Plan: Enoxaparin Clinical Quality Measures DVT/VTE Risk/Contraindication: Risk Factor Score Per Nursin RFS Level Per Nursing on Admit: 4+=Very High YUVAL LORD MD December 04, 2018 09:19
[2018-12-04] MEDS ORDERED: AMIT25TA9 PO (10:00)
[2018-12-04] MEDS ORDERED: EXEN2PEN SQ (10:00)
[2018-12-04] MEDS ORDERED: AMLO10TA7 PO (10:00)
[2018-12-04] MEDS ORDERED: PREG75CA PO (10:00)
[2018-12-04] MEDS ORDERED: OXYC-465 PO (10:00)
[2018-12-04] MEDS ORDERED: ATOR40TA70 PO (10:00)
[2018-12-04] MEDS ORDERED: MULT1TAB69 PO (10:00)
[2018-12-04] MEDS ORDERED: FURO80TA3 PO (10:00)
[2018-12-04] MEDS ORDERED: VNL75T PO (10:00)
[2018-12-04] MEDS ORDERED: INSU100V16 SQ (10:00)
[2018-12-04] MEDS ORDERED: INSU300I SQ (10:00)
--- NOTE | 2018-12-04 10:01 | NUR ---
WENT OVER THE EXT MED HX WITH THE PATIENT AND HE VERIFIED HOW HE TAKES EACH MEDICATION. HE STATES HE ALSO USES BYDUREON AND TOUJEO WHICH HE HAS FROM WHEN HE WAS ON THE [facility]ALS PRO[facility]. HE TAKES A MTV OTC DAILY.
[2018-12-04] MEDS ORDERED: PHARMACY TO DOSE SQ SCH (11:15)
[2018-12-04] MEDS: ENOXAPARIN 60 MG/0.6 ML (LOVENOX) SYR SC SCH (11:30)
[2018-12-04] MEDS: oxyCODONE/APAP 10/325MG (PERCOCET 10) TABLET PO PRN ×2 (11:31→21:06)
--- NOTE | 2018-12-04 12:23 | Diagnostic Imaging Report ---
PROCEDURE: US right lower extremity venous. TECHNIQUE: Multiple real-time grayscale images were obtained over the right lower extremity in various projections. Additional spectral analysis and color Doppler duplex images were also obtained. INDICATION: Cellulitis of the right lower extremity. FINDINGS: There is no evidence of right lower extremity DVT. Right lower extremity deep venous system shows normal compressibility with normal response to augmentation and Valsalva. The lower aspect of the superficial femoral vein was not well visualized due to body habitus. No fluid collections are seen. There appears to be some edema in the subcutaneous tissues. IMPRESSION: No evidence of right lower extremity DVT. Dictated by: Dictated on workstation # [id number]
--- NOTE | 2018-12-04 15:05 | NUR ---
Called Dr Lord about dressing change orders for patient's foot. She stated he was unable to tell her exactly what they did in [facility]. Consult wound care to come see him
--- NOTE | 2018-12-04 15:06 | NUR ---
CALLED DR BAÑUELOS WITH THE CONSULT. HE WILL BE HERE BETWEEN [phone] TO SEE THE PATIENT.
[2018-12-04] MEDS ORDERED: insulin ASPART vial for Pump (NovoLOG) SQ SCH (16:00)
--- NOTE | 2018-12-04 18:30 | NUR ---
DR BAÑUELOS ON THE FLOOR TO SEE THE PATIENT. HE WILL PUT IN DRESSING CHANGE ORDERS. THIS RN ALSO REQUESTED A POWDER FOR THE PATIENT'S GROIN AREA
--- NOTE | 2018-12-04 19:01 | Wound Care Assessment ---
Wound Care Assessment Date Seen by Provider: December 04, 2018 Time Seen by Provider: 18:20 Chief Complaint Pain and swelling of R leg. HPI The patient is a 53 year old male with acute deterioration of long-standing ulcerations of the R calf and a month-long history of ulcers of the R great toe and R third toe. He sees Dr. Heart in [place] for wound care. Past Medical History: Admits Diabetes Type II Hypertension, Obstructive Sleep Apnea. Smoking Status: Never a Smoker Recreational Drug Use: No Alcohol Use: Denies Use Review of Systems General: No Chills HEENT: No Dysphasia Pulmonary: Dyspnea Cardiovascular: No: Chest Pain Gastrointestinal: No: Abdominal Pain Genitourinary: No Dysuria Musculoskeletal: leg pain Neurological: Weakness Other systems Endocrine -- diabetes is poorly controlled. Integumentary -- Sees Dr. Heart in [place], has used Silvadene. Exam Vital Signs Date Time Temp Pulse Resp B/P (MAP) Pulse Ox O2 Delivery O2 Flow Rate FiO2 12/04/18 16:12 98.6 82 20 150/68 (95) 95 Room Air 12/04/18 04:03 3.00 Capillary Refill : Less Than 3 SecondsLess Than 3 Seconds General Appearance: mild distress, obese HEENT: normal ENT inspection Cardiovascular: regular rate, rhythm Respiratory: lungs clear Gastrointestinal: normal bowel sounds, non tender Extremities: pedal edema (massive), other (R calf inferior - 1.5 x 1.5 x 0.3 cm, base 100% slough, periwound with edema and erythema; R calf superior - 0.8 x 1.1 x 0.3 cm, base 100% slough, periwound with edema and erythema) Skin: other (R great toe - 1.6 x 1.8 x 0.2 cm, base 50% slough, 50% eschar; R 3rd toe- 2.3 x 2.2 x o.5 cm, base 50% slough, 50% blister, periwound macerated.) Results Laboratory Tests 12/03/18 20:58: Glucometer 183H 12/03/18 22:20: Lactic Acid Level 1.74 12/04/18 05:15: White Blood Count 12.0H, Red Blood Count 4.50, Hemoglobin 12.3L, Hematocrit 38L, Mean Corpuscular Volume 84, Mean Corpuscular Hemoglobin 27, Mean Corpuscular Hemoglobin Concent 33, Red Cell Distribution Width 14.2, Platelet Count 134, Mean Platelet Volume 11.1H, Neutrophils (%) (Auto) 87H, Lymphocytes (%) (Auto) 5L, Monocytes (%) (Auto) 6, Eosinophils (%) (Auto) 2, Basophils (%) (Auto) 0, Neutrophils # (Auto) 10.4H, Lymphocytes # (Auto) 0.6L, Monocytes # (Auto) 0.7, Eosinophils # (Auto) 0.2, Basophils # (Auto) 0.0, Sodium Level 132L, Potassium Level 3.8, Chloride Level 98, Carbon Dioxide Level 24, Anion Gap 10, Blood Urea Nitrogen 15, Creatinine 1.28, Estimat Glomerular Filtration Rate 59, BUN/Creatinine Ratio 12, Glucose Level 246H, Calcium Level 8.8, Corrected Calcium 9.0, Total Bilirubin 0.9, Aspartate Amino Transf (AST/SGOT) 16, Alanine Aminotransferase (ALT/SGPT) 18, Alkaline Phosphatase 58, Total Protein 7.3, Albumin 3.7 12/04/18 05:17: Glucometer 248H 12/04/18 11:19: Glucometer 298H 12/04/18 16:12: Glucometer 303H Microbiology 12/03/18 Blood Culture - Preliminary, Resulted No growth 12/03/18 Gram Stain, Resulted Pending 12/03/18 Wound Culture - Preliminary, Resulted Strep agalactiae Group B Microbiology 12/03/18 Blood Culture - Preliminary, Resulted No growth 12/03/18 Blood Culture - Preliminary, Resulted No growth 12/03/18 Gram Stain, Resulted Pending 12/03/18 Wound Culture - Preliminary, Resulted Strep agalactiae Group B Assessment/Plan/Dx 1. R great toe ulcer, diabetic, Vizcarra grade 2. 2. R 3rd toe ulcer, diabetic, Vizcarra Grade 2. 3. R calf venous ulcers x 2, with cellulitis. 4. Diabetes, poorly controlled, with foot and leg ulcers. 5. Morbid obesity, severe. Plan: Dakin's dressings are ordered to reduce bioburden at wound base. The patient is urged to elevate. Arterial studies are ordered to R/O arterial obst ruction. TARAS BAÑUELOS MD December 04, 2018 19:01
[2018-12-04] MEDS ORDERED: [UNRECOGNIZED DRUG - OTHER] SQ SCH (21:00)
[2018-12-04] MEDS ORDERED: ATORVASTATIN 40 MG (LIPITOR) TABLET PO SCH (21:00)
[2018-12-04] MEDS ORDERED: INSULIN GLARGINE HUM REC ANLOG 75 UNIT SQ SCH (21:00)
[2018-12-04] MEDS ORDERED: AMITRIPTYLINE 25 MG (ELAVIL) TAB PO SCH (21:00)
[2018-12-04] MEDS: PREGABALIN 75 MG (LYRICA) CAP PO SCH (21:06)
[2018-12-04] MEDS: DAKIN'S 1/4 STRENGTH (0.125%) 473 ML BTL TOP SCH (21:07)
[2018-12-04] MEDS: MICONAZOLE 2% POWDER (DESENEX AF) 90 GM TOP SCH (21:07)
[2018-12-05] MEDS: ENOXAPARIN 60 MG/0.6 ML (LOVENOX) SYR SC SCH ×2 (00:10→11:37)
[2018-12-05] MEDS: PIPERACILLIN/TAZO 4.5 GM/NS 100 ML IV SCH ×4 (00:10→10:22)
[2018-12-05] MEDS: NS IV 1000 ML 1,000 ML IV SCH ×2 (02:47→13:40)
[2018-12-05 04:35] VITALS: BP 140/65
[2018-12-05] MEDS ORDERED: TROUGH ORDER-PHARMACY XX NR (06:00)
[2018-12-05] MEDS: inSUlin ASPART (NovoLOG) 1 UNIT/0.01 ML (CHARGE PER UNIT) SC SCH ×4 (06:00→11:38)
[2018-12-05] MEDS: CATHETER FLUSH 10 ML SYR IV SCH ×2 (06:01→13:30)
[2018-12-05] MEDS ORDERED: FUROSEMIDE 40 MG (LASIX) TAB PO SCH (07:00)
[2018-12-05 07:35] LABS: HEMOGLOBIN 11.3 G/DL (13.3-17.7); MEAN PLATELET VOLUME 10.4 FL (7.4-10.4); RED CELL DISTRIBUTION WIDTH 14.4 % (10.0-14.5); WHITE BLOOD COUNT 7.2 10^3/uL (4.3-11.0)
[2018-12-05 07:57] LABS: BUN/CREATININE RATIO 10; CALCIUM 9.1 MG/DL (8.5-10.1); CARBON DIOXIDE 24 MMOL/L (21-32); CHLORIDE 106 MMOL/L (98-107); CREATININE SERUM 1.15 MG/DL (0.60-1.30); GFR ESTIMATED > 60; GLUCOSE 159 MG/DL (70-105); POTASSIUM 3.7 MMOL/L (3.6-5.0); SODIUM 142 MMOL/L (135-145)
[2018-12-05 08:00] VITALS: BP 153/75
[2018-12-05 08:05] LABS: VANCOMYCIN,TROUGH 17.7 UG/ML (10.0-20.0)
[2018-12-05] MEDS: VANCOMYCIN 2000 MG/NS 500 ML IVPB IV SCH ×2 (08:13)
[2018-12-05] MEDS: DAKIN'S 1/4 STRENGTH (0.125%) 473 ML BTL TOP SCH (08:14)
[2018-12-05] MEDS: MICONAZOLE 2% POWDER (DESENEX AF) 90 GM TOP SCH (08:14)
[2018-12-05] MEDS: PREGABALIN 75 MG (LYRICA) CAP PO SCH (08:14)
[2018-12-05] MEDS: oxyCODONE/APAP 10/325MG (PERCOCET 10) TABLET PO PRN (08:28)
[2018-12-05] MEDS ORDERED: NON-FORMULARY MEDICATION 1 EA EA (Amlodipine Besylate 10 MG) PO SCH (09:00)
[2018-12-05] MEDS ORDERED: buPROPion XL 150 MG (WELLBUTRIN XL) NON-FORM PO SCH (09:00)
[2018-12-05] MEDS ORDERED: VENlafaxine 75 MG (EFFEXOR) TAB PO SCH (09:00)
[2018-12-05] MEDS ORDERED: NON-FORMULARY MEDICATION 1 EA EA (Furosemide 80 MG) PO SCH (09:00)
[2018-12-05] MEDS ORDERED: buPROPion SR 150 MG (WELLBUTRIN SR) TAB PO SCH (09:00)
[2018-12-05] MEDS ORDERED: amLODIPine 10 MG (NORVASC) TAB PO SCH (09:00)
[2018-12-05 12:00] VITALS: BP 165/81
[2018-12-05] MEDS ORDERED: CEPH500T PO (12:12)
--- NOTE | 2018-12-05 12:15 | Discharge Instructions ---
Discharge [facility] Discharge Medications New, Converted or Re-Newed RX: Transmitted to Pharmacy New Medications: Cephalexin (Cephalexin) 500 Mg Tablet 500 MG PO Q6H for 10 Days, #40 TAB 0 Refills Continued Medications: Amitriptyline HCl (Amitriptyline HCl) 25 Mg Tablet 25 MG PO HS, TAB Amlodipine Besylate (Amlodipine Besylate) 10 Mg Tablet 10 MG PO DAILY, TAB Atorvastatin Calcium (Atorvastatin Calcium) 40 Mg Tablet 40 MG PO HS, TAB Bupropion HCl (Bupropion Xl) 150 Mg Tab.er.24h 150 MG PO DAILY, TAB Exenatide Microspheres (Bydureon Pen) 2 Mg/0.65 Ml Pen.injctr 2 MG SQ [place], VIAL Furosemide (Furosemide) 80 Mg Tablet 80 MG PO DAILY, TAB Insulin Aspart (Novolog) 100 Unit/1 Ml Susp 50 UNIT SQ TIDAC, EACH Insulin Glargine,Hum.rec.anlog (Toujeo Solostar) 300 Unit/1 Ml Insuln.pen 75 UNIT SQ HS, EA Multivitamin (Multivitamins) 1 Each Tablet 1 TAB PO DAILY, TAB Oxycodone HCl/Acetaminophen (Oxycodone-Acetaminophen 10-325) 1 Each Tablet 1 TAB PO Q6H PRN for PAIN-MODERATE, TAB Pregabalin (Lyrica) 75 Mg Capsule 75 MG PO BID, CAP Venlafaxine HCl (Venlafaxine HCl) 75 Mg Tab 75 MG PO DAILY, TAB Patient Instructions Goal/Follow Up Appt: Follow up with Anna Holder at [facility] on December 11 at 10 am. Return to The Hospital For: Fever, spreading redness, worsening swelling in leg, inability to keep down antibiotics Activity & Diet Discharge Diet: ADA Diet Activity as Tolerated: Yes Copy Copies To 1: LARRY Ramires BETHANY N MD December 05, 2018 12:15
--- NOTE | 2018-12-05 12:16 | Discharge Summary ---
Diagnosis/Chief Complaint Date of Admission December 03, 2018 at 18:45 Date of Discharge December 05, 2018 Admission Diagnosis Admission Diagnosis Sepsis Cellulitis Hyponatremia DMII HTN Diabetic ulcer Discharge Diagnosis See problem list Problems/Diagnosis: (1) Sepsis Assessment & Plan: Secondary to cellulitis, elevated WBC and fever. LA above 2, but not 4. Resolved this am and leukocytosis improved. Started on vancomycin and zosyn, blood cx pending. Resolved by time of d/c, see cellulitis dx. Qualifiers: Qualified Codes: A41.9 - Sepsis, unspecified organism Status: Acute (2) Cellulitis of right lower extremity Assessment & Plan: Started on vancoymycin and zosyn, receded slightly from lines drawn in ER. US negative for DVT. Discharged with Augmentin- wound culture with GBS and pasturella, final sensitivities pending at time of d/c. Status: Acute (3) Hyponatremia Assessment & Plan: Suspect hypervolemic hyponatremia. Resume home lasix, monitor. Status: Resolved Resolution Date/Time: 12/05/18 @ 20:16 (4) Diabetic ulcer of right great toe Assessment & Plan: Per pt report is healing, seeing wound care in [place]. Is not contiguous with cellulitis on leg- foot has no erythema. Status: Acute (5) Diabetes mellitus, type 2 Assessment & Plan: Diabetic diet, resume home insulin. Qualifiers: Status: Chronic (6) Hypertension Assessment & Plan: Resume home medications. Qualifiers: Qualified Codes: I10 - Essential (primary) hypertension Status: Chronic Chief Complaint/HPI Chief Complaint/HPI 53 yo male came to ER yesterday after having pain and bright redness in leg starting yesterday, had swelling a few days prior. Febrile yesterday at home up to 102. Today he states he feels a little nauseous, pain in leg is a little bit better. He had cellulitis with severe sepsis in the same leg not long ago and had to go to [place] due to renal failure and needing dialysis. He notes pain in back of upper leg which is not even red. Discharge Summary-Simple/Stand Consultations Discharge Physical Examination Allergies: Coded Allergies: No Known Drug Allergies (Unverified , 06/05/18) Vitals & I&Os Vital Sign - Last 12Hours Date Time Temp Pulse Resp B/P (MAP) Pulse Ox O2 Delivery O2 Flow Rate FiO2 12/05/18 08:00 98.0 80 18 153/75 (101) 94 Room Air 12/04/18 04:03 3.00 Intake and Output 12/05/18 00:00 Intake Total 2880 ml Balance 2880 ml General Appearance: Alert, No Acute Distress Respiratory: Clear to Auscultation, Normal Air Movement Cardiovascular: Regular Rate, No Murmurs Neuro: Normal Speech Psych/Mental Status: Mental Status NL Hospital Course See final discharge diagnosis. Labs Laboratory Tests Test 12/03/18 20:58 12/03/18 22:20 12/04/18 05:15 12/04/18 05:17 Range/Units Glucometer 183 H 248 H 70-110 MG/DL Lactic Acid Level 1.74 0.50-2.00 MMOL/L White Blood Count 12.0 H 4.3-11.0 10^3/uL Red Blood Count 4.50 4.35-5.85 10^6/uL Hemoglobin 12.3 L 13.3-17.7 G/DL Hematocrit 38 L 40-54 % Mean Corpuscular Volume 84 80-99 FL Mean Corpuscular Hemoglobin 27 25-34 PG Mean Corpuscular Hemoglobin Concent 33 32-36 G/DL Red Cell Distribution Width 14.2 10.0-14.5 % Platelet Count 134 130-400 10^3/uL Mean Platelet Volume 11.1 H 7.4-10.4 FL Neutrophils (%) (Auto) 87 H 42-75 % Lymphocytes (%) (Auto) 5 L 12-44 % Monocytes (%) (Auto) 6 0-12 % Eosinophils (%) (Auto) 2 0-10 % Basophils (%) (Auto) 0 0-10 % Neutrophils # (Auto) 10.4 H 1.8-7.8 X 10^3 Lymphocytes # (Auto) 0.6 L 1.0-4.0 X 10^3 Monocytes # (Auto) 0.7 0.0-1.0 X 10^3 Eosinophils # (Auto) 0.2 0.0-0.3 10^3/uL Basophils # (Auto) 0.0 0.0-0.1 10^3/uL Sodium Level 132 L 135-145 MMOL/L Potassium Level 3.8 3.6-5.0 MMOL/L Chloride Level 98 98-107 MMOL/L Carbon Dioxide Level 24 21-32 MMOL/L Anion Gap 10 5-14 MMOL/L Blood Urea Nitrogen 15 7-18 MG/DL Creatinine 1.28 0.60-1.30 MG/DL Estimat Glomerular Filtration Rate 59 BUN/Creatinine Ratio 12 Glucose Level 246 H 70-105 MG/DL Calcium Level 8.8 8.5-10.1 MG/DL Corrected Calcium 9.0 8.5-10.1 MG/DL Total Bilirubin 0.9 0.1-1.0 MG/DL Aspartate Amino Transf (AST/SGOT) 16 5-34 U/L Alanine Aminotransferase (ALT/SGPT) 18 0-55 U/L Alkaline Phosphatase 58 40-136 U/L Total Protein 7.3 6.4-8.2 GM/DL Albumin 3.7 3.2-4.5 GM/DL Test 12/04/18 11:19 12/04/18 16:12 12/04/18 20:59 12/05/18 05:42 Range/Units Glucometer 298 H 303 H 227 H 166 H 70-110 MG/DL Test 12/05/18 07:30 12/05/18 11:15 Range/Units White Blood Count 7.2 4.3-11.0 10^3/uL Red Blood Count 4.06 L 4.35-5.85 10^6/uL Hemoglobin 11.3 L 13.3-17.7 G/DL Hematocrit 34 L 40-54 % Mean Corpuscular Volume 84 80-99 FL Mean Corpuscular Hemoglobin 28 25-34 PG Mean Corpuscular Hemoglobin Concent 33 32-36 G/DL Red Cell Distribution Width 14.4 10.0-14.5 % Platelet Count 115 L 130-400 10^3/uL Mean Platelet Volume 10.4 7.4-10.4 FL Sodium Level 142 135-145 MMOL/L Potassium Level 3.7 3.6-5.0 MMOL/L Chloride Level 106 98-107 MMOL/L Carbon Dioxide Level 24 21-32 MMOL/L Anion Gap 12 5-14 MMOL/L Blood Urea Nitrogen 12 7-18 MG/DL Creatinine 1.15 0.60-1.30 MG/DL Estimat Glomerular Filtration Rate > 60 BUN/Creatinine Ratio 10 Glucose Level 159 H 70-105 MG/DL Calcium Level 9.1 8.5-10.1 MG/DL Vancomycin Level Trough 17.7 10.0-20.0 UG/ML Glucometer 184 H 70-110 MG/DL Radiology Reviewed CXR 12/03 no acute abnormality Discharge Instructions to patient/family Please see electronic discharge instructions given to patient. Discharge Medications Reviewed and agree with Discharge Medication list on patient's Discharge Instruction sheet Clinical Quality Measures DVT/VTE Risk/Contraindication: Risk Factor Score Per Nursin RFS Level Per Nursing on Admit: 4+=Very High Copy Copies To 1: LARRY Carmen BETHANY N MD December 05, 2018 12:16
[2018-12-05] MEDS ORDERED: AMOX-358 PO (12:40)
--- NOTE | 2018-12-05 14:19 | NUR ---
CM/SS, initial visit with patient to explore current services and resources. Patient was going once weekly to wound care at [facility] in [place] and this will likely be resumed and/or orders modified to address current status of cellulitis and wounds. He is established with [facility] at the [place] [facility]. DME: Patient does not have a FWW but indicates he has not needed any assistance with ambulation. Weight is 442.6# and would require bariatric DME if necessary. Continue intermittent review for more definitive discharge needs.
== END 2018-12-05 14:30 | disposition home or self-care (01) | DRG 872 ==
LOC: EDUNIT# 17:22 → ER 17:24 → 4TH 18:45
PROVIDERS: ADMIT Family Medicine; ATTEND Family Medicine
DX: A41.9 Sepsis, unspecified organism (principal); I83.212 Varicose veins of right lower extremity with both ulcer of calf and inflammation; L03.115 Cellulitis of right lower limb; L97.219 Non-pressure chronic ulcer of right calf with unspecified severity; A28.0 Pasteurellosis; B95.1 Streptococcus, group B, as the cause of diseases classified elsewhere; E87.1 Hypo-osmolality and hyponatremia; E66.01 Morbid (severe) obesity due to excess calories; Z68.43 Body mass index [BMI] 50.0-59.9, adult; E11.621 Type 2 diabetes mellitus with foot ulcer; L97.519 Non-pressure chronic ulcer of other part of right foot with unspecified severity; I10 Essential (primary) hypertension; G47.30 Sleep apnea, unspecified; J30.2 Other seasonal allergic rhinitis; F41.9 Anxiety disorder, unspecified; F32.9 Major depressive disorder, single episode, unspecified; Z89.421 Acquired absence of other right toe(s)
CPT/HCPCS: 36415; 71045; 80048; 80053; 80202; 82962; 83605; 85007; 85025; 85027; 85610; 85730; 86141; 87040; 87070; 87077; 87184; 87185; 87205; 94760; 96361; 96365; 96375